=== PATIENT | female | born 1995 | race Caucasian/White ===

== ENCOUNTER 2020-02-13 14:39 | Emergency (ER) | payer MEDICARE, MEDICAID, SELFPAY ==
[2020-02-13 15:06] VITALS: BP 139/88; PULSE 73; RESP 16; TEMP 36.6; O2SAT 98; BMI 41.3
--- NOTE | 2020-02-13 15:25 | ED.WOUNDLAC ---
HPI - Wound/Laceration General Chief Complaint: Wound/Laceration <RASHIDA Ac - Last Filed: 02/13/20 16:14> Stated Complaint: WOUND CHECK <RASHIDA Ac - Last Filed: 02/13/20 16:14> Time Seen by Provider: 02/13/20 15:22 <RASHIDA Ac - Last Filed: 02/13/20 16:14> History of Present Illness HPI narrative: Patient complains of area of redness on her left stroud area of her lower leg for several days, she lives in a nursing home, she saw her primary physician who started doxycycline and took her 1st dose this morning and the nursing home wanted her to be recheck here in the ER, there is no acute change since her visit to the primary care physician yesterday No fever no chills no numbness no weakness no calf pain <RASHIDA Ac - Last Filed: 02/13/20 16:14> Related Data Home Medications: Previous Rx's Medication Instructions Recorded atenolol 25 mg tablet 25 mg PO DAILY 90 Days #90 tab 02/07/20 doxycycline hyclate 100 mg tablet 100 mg PO BID #14 tab 02/12/20 silver sulfadiazine 1 % topical 1 applic TOPICAL DAILY #50 g 02/12/20 cream cephalexin [Keflex] 500 mg PO QID 7 Days #28 cap 02/13/20 <RASHIDA Ac - Last Filed: 02/13/20 16:14> Allergies/Adverse Reactions: Allergies Allergy/AdvReac Type Severity Reaction Status Date / Time silver Allergy Unknown RASH Unverified 02/12/20 11:40 [From TEGADERM AG MESH] transparent dressing Allergy Unknown skin Verified 02/12/20 11:40 irritation sensitivity haloperidol [From HALDOL] AdvReac Intermediate UNKNOWN Unverified 02/12/20 11:40 Haldol Allergy Unknown paradoxical Uncoded 02/12/20 11:40 effect Tegaderm CHG dressing: Allergy Unknown skin Uncoded 02/12/20 11:40 irritation <RASHIDA Ac - Last Filed: 02/13/20 16:14> Review of Systems Review of Systems: Review of systems is positive for painful red area on left lower leg There is no fever no chills no weakness no confusion no shortness of breath no palpitations no chest pain no calf pain no other rash no numbness <RASHIDA Ac - Last Filed: 02/13/20 16:14> Yes all other systems are reviewed and are negative <RASHIDA Ac - Last Filed: 02/13/20 16:14> [facility] Past Medical History Attestation statement: The following information was validated with the patient. <RASHIDA Ac - Last Filed: 02/13/20 16:14> Source: nursing notes reviewed <RASHIDA Ac - Last Filed: 02/13/20 16:14> Medical History: Medical History (Updated 02/13/20 @ 15:33 by RASHIDA Ac) Acute constipation Anemia Anxiety Autistic disorder Chronic constipation Colitis Crohn's disease Developmental delay, mild Iron deficiency Mood disorder Pica in adults Prader-Willi syndrome PTSD (post-traumatic stress disorder) Vitamin D deficiency <RASHIDA Ac - Last Filed: 02/13/20 16:14> Surgical History: Surgical History History of abdominal surgery History of throat surgery <RASHIDA Ac - Last Filed: 02/13/20 16:14> Family History Family History: Family History Father No problems noted. Mother No problems noted. <RASHIDA Ac - Last Filed: 02/13/20 16:14> Social History Social History: Social History Alcohol intake: never Smoked in Last 30 Days: No Use of substances other than those prescribed or required for medical reasons: No Advance Directives: No Advance Directives Information Provided: No <RASHIDA Ac - Last Filed: 02/13/20 16:14> Physical Exam Vital Signs: Vital Signs: Last Vital Signs Temp 97.8 F 02/13/20 15:06 Pulse 73 02/13/20 15:06 Resp 16 02/13/20 15:06 BP 139/88 02/13/20 15:06 Pulse Ox 98 02/13/20 15:06 Body Mass Index 41.3 <RASHIDA Ac - Last Filed: 02/13/20 16:14> Vital Signs: Last Vital Signs Temp 97.8 F 02/13/20 15:06 Pulse 73 02/13/20 15:06 Resp 16 02/13/20 15:06 BP 139/88 02/13/20 15:06 Pulse Ox 98 02/13/20 15:06 Body Mass Index 41.3 <Dylan Saul MD - Last Filed: 02/19/20 07:33> Patient is A&O x3 no acute distress comfortable cooperative The neck is supple Respiratory no distress The extremities the left lower anterior lower leg has an excoriated area that is scabbed that is read it is about 3 cm x 3 cm, there is some mild swelling of the area as well as the dorsum of the foot, there is no calf tenderness or swelling, the ankle and the knee have full range of motion there is no joint swelling Skin there is no other rash Neuro there is no focal deficit, no motor or sensory deficit <RASHIDA Ac - Last Filed: 02/13/20 16:14> Course Course Course Narrative: Patient saw her doctor yesterday and there has been no change, the doctor started doxycycline, for broader coverage for strep I started Keflex and patient is ambulating easily and comfortable and is discharged for outpatient treatment <RASHIDA Ac - Last Filed: 02/13/20 16:14> I have reviewed the chart <Dylan Saul MD - Last Filed: 02/19/20 07:33> Discharge Plan Discharge Clinical Impression: Cellulitis Qualifiers: Site of cellulitis: extremity Site of cellulitis of extremity: lower extremity Laterality: left Qualified Code(s): L03.116 - Cellulitis of left lower limb <RASHIDA Ac - Last Filed: 02/13/20 16:14> Patient Disposition: Home, Self-Care <RASHIDA Ac - Last Filed: 02/13/20 16:14> Additional Instructions: We are treating for a skin infection of the left leg Your doctor started doxycycline and I added Keflex for broader coverage Follow with your doctor or return to the ER in 2-3 days for recheck Return to the ER any time for spreading redness, worse pain and swelling, fever, red stripe up the leg, any worse condition or any concerns <RASHIDA Ac Last Filed: 02/13/20 16:14> Prescriptions: New cephalexin [Keflex] 500 mg capsule 500 mg PO QID 7 Days Qty: 28 RF: 0 No Action atenolol 25 mg tablet 25 mg PO DAILY 90 Days Qty: 90 RF: 0 silver sulfadiazine [Silvadene] 1 % cream 1 applic topical DAILY Qty: 50 RF: 0 doxycycline hyclate 100 mg tablet 100 mg PO BID Qty: 14 RF: 0 <RASHIDA Ac - Last Filed: 02/13/20 16:14> Interventions: ED Discharge Assessment Last Done: 02/13/20 16:13 <RASHIDA Ac - Last Filed: 02/13/20 16:14> Discharge Date/Time: 02/13/20 16:21 <RASHIDA Ac - Last Filed: 02/13/20 16:14> Print Language: Hungarian <RASHIDA Ac - Last Filed: 02/13/20 16:14>
[2020-02-13] MEDS: cephALEXin 500 MG CAPSULE PO (15:47)
== END 2020-02-13 16:21 | disposition home or self-care (01) ==
PROVIDERS: Emergency Provider Emergency Medicine; PCP Internal Medicine
DX: L03.116 Cellulitis of left lower limb (principal); M79.605 Pain in left leg; Z79.899 Other long term (current) drug therapy
CPT/HCPCS: 99283; 99284

== ENCOUNTER 2020-02-19 16:38 | Inpatient (IN) | payer MEDICARE, MEDICAID, SELFPAY ==
--- NOTE | 2020-02-19 | XR_ITS ---
EXAMINATION: XR ABDOMEN KUB CLINICAL INDICATION: Rule out foreign body COMPARISON: 08/26/2019 TECHNIQUE: AP view of the abdomen. FINDINGS: Bowel gas pattern is nonobstructive. Projecting over the right lower quadrant the level of the superior right acetabulum there is a metallic density, question a screw. Correlate with physical exam. XR/XR abdomen 1V IMPRESSION: There is a screw/foreign body projecting over the right lower quadrant level of the right acetabulum. Correlate with physical exam and clinical history. Findings were discussed with Dr. Lehman at 6:15 PM on 02/19/2020
--- NOTE | 2020-02-19 | XR_ITS ---
EXAMINATION: XR CHEST CLINICAL INFORMATION: Rule out foreign body COMPARISON: Chest radiograph 08/26/2019 TECHNIQUE: Frontal view of the chest was obtained. FINDINGS: The cardiomediastinal silhouette is normal in appearance. There is adequate expansion of the lungs. No focal consolidation. No pleural effusion or pneumothorax. There is a sliver of air under the right hemidiaphragm, concerning for pneumoperitoneum. No acute osseous abnormality. XR/XR chest 1V IMPRESSION: Small sliver of air under the right hemidiaphragm, concerning for pneumoperitoneum. No acute disease within the chest. This critical result was discussed with RASHIDA Lucas at 6:12 PM on 02/19/2020 and it was ascertained that the content and urgency of the report was understood at the time of direct communication.
--- NOTE | 2020-02-19 | XR_ITS ---
EXAMINATION: XR SOFT TISSUE NECK CLINICAL INDICATION: Rule out foreign body COMPARISON: 10/24/2019 TECHNIQUE: 2 views of the soft tissue neck were obtained. FINDINGS: Soft tissue films of the neck demonstrate a normal larynx, pharynx and upper trachea. No soft tissue swelling or opaque foreign body is demonstrated. The large metallic foreign body seen previously is no longer present. XR/XR soft tissue neck IMPRESSION: No radiopaque foreign body is seen.
[2020-02-19 17:06] VITALS: BP 137/86; PULSE 64; RESP 18; TEMP 36.4; O2SAT 100; BMI 35.5
--- NOTE | 2020-02-19 18:15 | ED_ITS ---
HPI - General Adult General Chief complaint: General Medical Stated complaint: Medical Clearance Time Seen by Provider: 02/19/20 18:12 History of Present Illness HPI narrative: Patient who is a resident in a senior care with a history of swallowing foreign bodies complains of she swallowed a screw 3 days ago and since then has had a mild discomfort in her lower chest and upper abdomen, no nausea no vomiting no diarrhea no fever no chills no difficulty breathing or swallowing, no dizziness no weakness Related Data Home Medications Medication Instructions Recorded Confirmed Fish Oil 02/19/20 Flonase 02/19/20 Miralax 02/19/20 Vitamin D (with calcium) 02/19/20 atenolol 02/19/20 famotidine 02/19/20 folic acid 02/19/20 guanfacine 02/19/20 02/19/20 melatonin 02/19/20 multivitamin 02/19/20 Allergies Allergy/AdvReac Type Severity Reaction Status Date / Time silver Allergy Unknown RASH Verified 02/19/20 17:06 [From TEGADERM AG MESH] transparent dressing Allergy Unknown skin Verified 02/19/20 17:06 irritation sensitivity haloperidol [From HALDOL] AdvReac Intermediate UNKNOWN Verified 02/19/20 17:06 Haldol Allergy Unknown paradoxical Uncoded 02/12/20 11:40 effect Tegaderm CHG dressing: Allergy Unknown skin Uncoded 02/12/20 11:40 irritation Review of Systems Review of Systems: There is no fever no chills no dizziness no weakness no headache no shortness of breath no difficulty breathing or swallowing, no nausea no vomiting, no rash Yes all other systems are reviewed and are negative PMFSH Past Medical History Source: nursing notes reviewed Medical History (Updated 02/19/20 @ 21:57 by RASHIDA Ac) Acute constipation Anemia Anxiety Autistic disorder Chronic constipation Colitis Crohn's disease Developmental delay, mild Iron deficiency Mood disorder Pica in adults Prader-Willi syndrome PTSD (post-traumatic stress disorder) Vitamin D deficiency Surgical History History of abdominal surgery History of throat surgery Family History Family History Father No problems noted. Mother No problems noted. Social History Social History Alcohol intake: never Smoking Status: Unknown if ever smoked Use of substances other than those prescribed or required for medical reasons: No Advance Directives: No Advance Directives Information Provided: No Physical Exam Vital Signs: Vital Signs: Last Vital Signs Temp 98.3 F 02/19/20 19:25 Pulse 74 02/19/20 19:25 Resp 16 02/19/20 19:25 BP 137/86 02/19/20 17:06 Pulse Ox 98 02/19/20 19:25 Body Mass Index 35.5 General appearance no acute distress, speaking full sentences, breathing comfortably, a and O x3 The head is normocephalic atraumatic The pharynx is clear, mucous membranes moist The neck is supple without stridor The chest is clear to auscultation bilaterally with symmetrical equal breath sounds, no respiratory distress The heart no obvious murmur The abdomen with mild upper abdominal tenderness no rebound no guarding Extremities full range of motion x4 Skin no rash Neuro no focal deficit Course Course Course Narrative: X-rays were done and chest x-ray revealed a sliver of air under the right hemidiaphragm which we were notified about by the radiologist who is concerned for pneumoperitoneum and advised CT scanning for further more complete evaluation The patient remains comfortable throughout the ER visit, speaking and breathing normally with no significant discomfort IV insertion was difficult and done with ultrasound by nursing, the IV contrast infiltrated into the patient's forearm and plan is await results of the CT scan which was basically without contrast and discussed with radiologist if images are sufficient when they are back Radiologist called confirming free air under diaphragm and location of screw in cecum but no other findings on CT Repeat evaluation of the patient shows her comfortable hungry but advised not to eat with no tenderness in abdomen and lungs clear and speaking full sentences Call from radiology confirmed that there was free air under the diaphragm as well as a screw in the cecum Case was discussed by text with surgeon Dr. Chang who admitted the patient for observation and possible surgical treatment Medical Decision Making Lab Data Lab results reviewed: Yes I reviewed the patient's lab results. Result diagrams: 02/19/20 19:14 02/19/20 19:14 Labs: Lab Results 02/19/20 02/19/20 02/19/20 Range/Units 19:14 19:14 19:14 WBC 9.4 (4.8-10.8) X10*3/uL RBC 4.34 (4.20-5.50) X10*6/uL Hgb 12.0 (12.0-16.0) g/dl Hct 37.9 (37-47) % MCV 87.3 (80-98) fL MCH 27.6 (27.0-33.0) pg MCHC 31.7 (31.0-35.0) g/dl RDW 14.4 (11.0-16.0) % Plt Count 212 (160-400) X10*3/uL MPV 10.3 (9.4-12.3) fL Immature Gran % (Auto) 0.4 (0.0-0.4) % Neut % (Auto) 72.0 (45-73) % Lymph % (Auto) 18.5 L (20-40) % [place] % (Auto) 6.2 (2-11) % Eos % (Auto) 2.6 (0-4) % Baso % (Auto) 0.3 (0-2) % Lymph # (Auto) 1.7 (1.2-4.9) X10*3/uL [place] # (Auto) 0.6 (0.1-1.2) X10*3/uL Eos # (Auto) 0.2 (0.0-0.4) X10*3/uL Baso # (Auto) 0.0 (0.0-0.2) X10*3/uL Abs Immat Gran (auto) 0.04 H (0.00-0.03) X10*3/uL Absolute Neuts (auto) 6.7 (2.0-8.3) X10*3/uL Absolute Nucleated RBC 0.000 (0.0-0.012) X10*3/uL Nucleated RBC % (auto) 0.0 (0.0-0.2) /100WBC Hold Blue Top SEE NOTE Sodium 138 (135-145) mmol/L Potassium 3.8 (3.3-5.1) mmol/l Chloride 101 (96-108) mmol/L Carbon Dioxide 28 (22-29) mmol/L Anion Gap 13 (12-20) BUN 23 H (9-16) mg/dL Creatinine 0.92 (0.5-1.4) mg/dL Estim Creat Clear Calc 89.8 Estimated GFR > 60 Random Glucose 91 (60-115) mg/dL Calcium 9.0 (8.4-10.2) mg/dL Imaging Data CT scan - abdomen: Attestation: I personally reviewed and interpreted this imaging study as follows: Radiologist's impression: Mediastinum: The mediastinum is normal. The central vascular structures are unremarkable. No hilar or mediastinal lymphadenopathy. Pericardium/Pleura: No significant effusion. No pleural mass or thickening. Chest Wall/Axilla: Unremarkable. ABDOMEN/PELVIS: Peritoneal Space: There is a small amount of free air present in the peritoneal cavity with air present just beneath the right hemidiaphragm and a tiny bit of air seen in Morison's pouch as well as around the caudate lobe of the liver. Liver, Gallbladder, Biliary Tree: The liver is normal in size, shape, and attenuation. No focal hepatic lesion or biliary ductal dilatation is present. The gallbladder is unremarkable with no evidence of radiopaque gallstones, gallbladder wall thickening, or obvious pericholecystic inflammatory changes. Pancreas: Unremarkable. Spleen: Unremarkable. Adrenal Glands: Unremarkable. Kidneys and Ureters: The kidneys are normal in size, shape, and attenuation. No hydronephrosis, hydroureter, or calculi seen. No perinephric stranding. Bladder: Unremarkable. Gastrointestinal Tract: There is a 2.7 cm long metallic screw present in the cecum. The small and large bowel are otherwise unremarkable. The stomach appears unremarkable. There is no convincing evidence of a perforated viscus. No inflammatory changes are present around the bowel. The appendix is unremarkable. Abdominal Wall: There is a left supraumbilical hernia seen containing only fat. Lymph Nodes: No lymphadenopathy. Vascular: The aorta appears normal. The IVC appears unremarkable. PELVIC VISCERA: Unremarkable. OSSEUS STRUCTURES: Unremarkable. CT/CT chest w con IMPRESSION: 1. There is a small amount of free intraperitoneal air present. 2. The patient has ingested a 2.7 cm metallic screw which is in the cecum. 3. No obvious evidence of bowel perforation or perienteric inflammatory changes. 4. Incidentally noted left-sided spigelian anterior abdominal wall hernia. This critical result was discussed with Dr. Cortes at 9:15 PM on the evening of the exam and it was ascertained that the content and urgency of the report was understood at the time of direct communication. Discharge Plan Discharge Clinical Impression: Intra-abdominal free air of unknown etiology, Foreign body, swallowed Patient Disposition: Admitted As Inpatient Prescriptions: No Action Fish Oil RF: 0 Flonase RF: 0 Miralax RF: 0 Vitamin D (with calcium) RF: 0 atenolol RF: 0 famotidine RF: 0 folic acid RF: 0 guanfacine RF: 0 melatonin RF: 0 multivitamin RF: 0
--- NOTE | 2020-02-19 18:17 | CT_ITS ---
EXAMINATION: CT CHEST, ABDOMEN AND PELVIS WITHOUT CONTRAST CLINICAL INFORMATION: Question free air under right hemidiaphragm, assess for pneumoperitoneum. COMPARISON: No pertinent prior studies are available for comparison. TECHNIQUE: Multidetector volumetric imaging was performed from the thoracic inlet through the pubic symphysis following administration of 85 mL of Omnipaque 350. It should be noted that no contrast is seen on the images and that there was an extravasation injury with extravasation of nearly the whole volume in the left antecubital fossa. Sagittal and coronal reformatted images were obtained on the technologist's workstation. This CT examination was performed using dose optimization techniques as appropriate, variously including the following: *Automated exposure control. *Adjustment of mA and/or kV according to patient size (this includes techniques or standardized protocols for targeted exams where dose is matched to indication/reason for exam; i.e. extremities or head). *Use of iterative reconstruction technique. DLP: 667 mGy-cm FINDINGS: CHEST: Lung: The lungs are clear without focal opacity or nodule. Mediastinum: The mediastinum is normal. The central vascular structures are unremarkable. No hilar or mediastinal lymphadenopathy. Pericardium/Pleura: No significant effusion. No pleural mass or thickening. Chest Wall/Axilla: Unremarkable. ABDOMEN/PELVIS: Peritoneal Space: There is a small amount of free air present in the peritoneal cavity with air present just beneath the right hemidiaphragm and a tiny bit of air seen in Morison's pouch as well as around the caudate lobe of the liver. Liver, Gallbladder, Biliary Tree: The liver is normal in size, shape, and attenuation. No focal hepatic lesion or biliary ductal dilatation is present. The gallbladder is unremarkable with no evidence of radiopaque gallstones, gallbladder wall thickening, or obvious pericholecystic inflammatory changes. Pancreas: Unremarkable. Spleen: Unremarkable. Adrenal Glands: Unremarkable. Kidneys and Ureters: The kidneys are normal in size, shape, and attenuation. No hydronephrosis, hydroureter, or calculi seen. No perinephric stranding. Bladder: Unremarkable. Gastrointestinal Tract: There is a 2.7 cm long metallic screw present in the cecum. The small and large bowel are otherwise unremarkable. The stomach appears unremarkable. There is no convincing evidence of a perforated viscus. No inflammatory changes are present around the bowel. The appendix is unremarkable. Abdominal Wall: There is a left supraumbilical hernia seen containing only fat. Lymph Nodes: No lymphadenopathy. Vascular: The aorta appears normal. The IVC appears unremarkable. PELVIC VISCERA: Unremarkable. OSSEUS STRUCTURES: Unremarkable. CT/CT abdomen pelvis w con IMPRESSION: 1. There is a small amount of free intraperitoneal air present. 2. The patient has ingested a 2.7 cm metallic screw which is in the cecum. 3. No obvious evidence of bowel perforation or perienteric inflammatory changes. 4. Incidentally noted left-sided spigelian anterior abdominal wall hernia. This critical result was discussed with Dr. Cortes at 9:15 PM on the evening of the exam and it was ascertained that the content and urgency of the report was understood at the time of direct communication.
[2020-02-19 19:24] LABS: Basophils Percent Auto 0.3 % (0-2); Eosinophils Absolute Auto 0.2 X10*3/uL (0.0-0.4); Eosinophils Percent Auto 2.6 % (0-4); Hematocrit 37.9 % (37-47); Imm Gran Abs Auto 0.04 X10*3/uL (0.00-0.03); Imm Gran Pct Auto 0.4 % (0.0-0.4); Lymphocytes Absolute Auto 1.7 X10*3/uL (1.2-4.9); Lymphocytes Percent Auto 18.5 % (20-40); MANUAL DIFF FLAG NO; Mean Corpuscular HGB Conc 31.7 g/dl (31.0-35.0); Mean Corpuscular Hemoglobin 27.6 pg (27.0-33.0); Mean Corpuscular Volume 87.3 fL (80-98); Mean Platelet Volume 10.3 fL (9.4-12.3); Monocytes Absolute Auto 0.6 X10*3/uL (0.1-1.2); Monocytes Percent Auto 6.2 % (2-11); Neutrophils Absolute Auto 6.7 X10*3/uL (2.0-8.3); Platelet Count 212 X10*3/uL (160-400); Red Blood Count 4.34 X10*6/uL (4.20-5.50); Red Cell Distribution Width 14.4 % (11.0-16.0); White Blood Count 9.4 X10*3/uL (4.8-10.8)
[2020-02-19 19:25] VITALS: PULSE 74; RESP 16; TEMP 36.8; O2SAT 98
[2020-02-19 19:45] LABS: Anion Gap 13 (12-20); Blood Urea Nitrogen 23 mg/dL (9-16); Carbon Dioxide 28 mmol/L (22-29); Chloride 101 mmol/L (96-108); Creatinine Clr Calc Pharmacy 89.8; Estimated Glomerular Filt Rate > 60; Glucose Random 91 mg/dL (60-115); Potassium 3.8 mmol/l (3.3-5.1); Sodium 138 mmol/L (135-145)
[2020-02-19] MEDS: iohexoL 350 MG/ML 100 ML INFUS..BTL IV (20:43)
[2020-02-19 22:25] VITALS: BP 92/63; PULSE 74; RESP 18; TEMP 36.7; O2SAT 98
[2020-02-19 23:24] LABS: COVID-19 Test Negative (Negative)
--- NOTE | 2020-02-20 | XR_ITS ---
EXAMINATION: XR ABDOMEN KUB CLINICAL INDICATION: Follow-up foreign body COMPARISON: Previous CT from yesterday TECHNIQUE: AP view of the abdomen. FINDINGS: The screw is seen in the right lower pelvis just medial to the acetabulum. This is inferior to its position on yesterday's CT scan, however it is possible this is due difference in patient positioning i.e. upright on today's exam and supine on CT. There are no dilated loops of bowel. Free air appreciated by CT is not appreciated by x-ray. There is excreted IV contrast in the bladder. There is curvature of the lumbar spine to the left. XR/XR abdomen 1V IMPRESSION: Screw in the right pelvis.
[2020-02-20] MEDS: 0.9 % Sodium Chloride Flush 3 ML SYRINGE IVFLUSH ×3 (01:16→23:36)
[2020-02-20] MEDS: Dextrose 5 % and Lactated Ring 1,000 ML 125 ML IVCONT (01:16)
[2020-02-20 01:33] VITALS: BP 101/77; PULSE 68; RESP 20; TEMP 36.6; O2SAT 99
[2020-02-20 03:02] VITALS: BP 129/70; PULSE 63; RESP 16; TEMP 36.2; O2SAT 97
[2020-02-20 07:08] LABS: Hematocrit 37.2 % (37-47); Hemoglobin 11.8 g/dl (12.0-16.0); Mean Corpuscular HGB Conc 31.7 g/dl (31.0-35.0); Mean Corpuscular Hemoglobin 27.3 pg (27.0-33.0); Mean Corpuscular Volume 86.1 fL (80-98); Mean Platelet Volume 10.3 fL (9.4-12.3); Platelet Count 175 X10*3/uL (160-400); Red Blood Count 4.32 X10*6/uL (4.20-5.50); Red Cell Distribution Width 14.6 % (11.0-16.0); White Blood Count 5.9 X10*3/uL (4.8-10.8)
[2020-02-20 07:55] VITALS: BP 138/81; PULSE 84; RESP 19; TEMP 36.5; O2SAT 100
--- NOTE | 2020-02-20 08:26 | P.HPGS_ITS ---
History of Present Illness History of Present Illness Chief complaint: Pneumoperitoneum, swallowed foreign body <RICARDO Elliott Last Filed: 02/20/20 08:57> Narrative: Tiki Sharp is a 24 year old female with PMH including autism, Crohn's disease, anemia and pica, with a history of swallowing foreign objects, who now presents 3 days following swallowing a screw. She reports she did have some abdominal pain immediately after swallowing the screw which was not severe but that resolved that day. Her PCP was contacted at that time who instructed the [facility] to wait 2 days to see if the screw passes. She was brought to the ED to assess if the screw had passed. Chest, abdominal and neck xrays were initially performed which showed the screw in the bowel and a small sliver of free intraperitoneal air. A CT scan abd/pelvis was therefore obtained which redemonstrated the small amount of free intraperitoneal air, the 2.7 cm metallic screw in the cecum but without obvious evidence of bowel perforation or per ienteric inflammatory changes. Her WBC was normal and vitals were stable, afebrile. She has required laparotomy and removal of a foreign body from her stomach. This morning, she feels hungry. The patient currently denies any abdominal pain, nausea, vomiting, change in bowel habits or blood in her stool. She is passing flatus. She wants to go back the [facility]. <RICARDO Elliott Last Filed: 02/20/20 08:57> Review of Systems Constitutional: Constitutional: Denies chills, Denies fever(s) and Denies weakness <RICARDO Elliott Last Filed: 02/20/20 08:57> Eyes: Eyes: Denies blurry vision <RICARDO Elliott Last Filed: 02/20/20 08:57> ENT: Denies dizziness <RICARDO Elliott Filed: 02/20/20 08:57> Cardiovascular: Cardiovascular: Denies chest pain, Denies palpitations and Denies dyspnea <RICARDO Elliott Last Filed: 02/20/20 08:57> Respiratory: Respiratory: Denies cough and Denies dyspnea <RICARDO Elliott Last Filed: 02/20/20 08:57> Gastrointestinal: Gastrointestinal: Reports abdominal pain, Denies melena, Denies hematochezia, Denies change in bowel habits, Denies nausea and Denies vomiting <Bianca Olivo PA-C Last Filed: 02/20/20 08:57> Genitourinary: Genitourinary: Denies hematuria and Denies dysuria <Bianca Olivo PA-C Filed: 02/20/20 08:57> Integumentary/Breasts: Skin/Breast: Reports skin ulcer (LLE cellulitis) <Bianca Olivo PA-C Last Filed: 02/20/20 08:57> Neurologic: Denies dizziness and Denies weakness <Bianca Olivo PA-C Filed: 02/20/20 08:57> Endocrine: Endocrine: Denies palpitations <Bianca Olivo PA-C Filed: 02/20/20 08:57> PMF Past Medical History Medical History: Medical History Acute constipation Anemia Anxiety Autistic disorder Chronic constipation Colitis Crohn's disease Developmental delay, mild Iron deficiency Mood disorder Pica in adults Prader-Willi syndrome PTSD (post-traumatic stress disorder) Vitamin D deficiency <Bianca Olivo PA-C Last Filed: 02/20/20 08:57> Family History Family History: Family History Father No problems noted. Mother No problems noted. <Bianca Olivo PA-C Last Filed: 02/20/20 08:57> Surgical History Surgical History: Surgical History History of abdominal surgery History of throat surgery <Bianca Olivo PA-C Last Filed: 02/20/20 08:57> Social History Social History: Social History Household Members: Other Housing: Other Do you presently have visiting nurse or other home services: Yes Alcohol intake: never Smoking Status: Never smoker Use of substances other than those prescribed or required for medical reasons: No Currently Displaying Signs/Symptoms of Drug Intoxication Withdrawal: No Have you been hit, kicked, punched, or otherwise hurt by someone within the past year? If so, by whom?: No Do you feel safe in your current relationship?: No Current Relationship Is there a partner from a previous relationship who is making you feel unsafe now?: No Are you made to feel afraid or neglected: No Advance Directives: No Advance Directives Information Provided: No Do you have thoughts of harming others: None Do you have a plan to hurt others: No Plan Recently lost weight without trying: No <Bianca Olivo PA-C - Last Filed: 02/20/20 08:57> Meds Allergies/Adverse reactions: Allergies Allergy/AdvReac Type Severity Reaction Status Date / Time silver Allergy Unknown RASH Verified 02/19/20 17:06 [From TEGADERM AG MESH] transparent dressing Allergy Unknown skin Verified 02/19/20 17:06 irritation sensitivity haloperidol [From HALDOL] AdvReac Intermediate UNKNOWN Verified 02/19/20 17:06 Haldol Allergy Unknown paradoxical Uncoded 02/12/20 11:40 effect Tegaderm CHG dressing: Allergy Unknown skin Uncoded 02/12/20 11:40 irritation <Bianca Olivo PA-C - Last Filed: 02/20/20 08:57> Home medications: Home Medications Medication Instructions Recorded Confirmed Type acetaminophen 325 mg PO BID PRN 02/20/20 02/20/20 History atenolol 25 mg PO DAILY 02/20/20 02/20/20 History calcium citrate-vitamin D3 1 tab PO DAILY 02/20/20 02/20/20 History [Calcium Citrate + D] cephalexin [Keflex] 500 mg PO QID 02/20/20 02/20/20 History cholecalciferol (vitamin D3) 50 mcg PO DAILY 02/20/20 02/20/20 History [Vitamin D3] diphenhydramine HCl [Benadryl] 50 mg PO Q6H PRN 02/20/20 02/20/20 History famotidine 40 mg PO DAILY 02/20/20 02/20/20 History ferrous sulfate 325 mg PO BID 02/20/20 02/20/20 History fluticasone propionate [Flonase] 1 spray INTRANASAL BEDTIME 02/20/20 02/20/20 History folic acid 1 mg PO DAILY 02/20/20 02/20/20 History guaifenesin [Robitussin] 200 mg PO Q4H PRN 02/20/20 02/20/20 History guanfacine 1 mg PO DAILY 02/20/20 02/20/20 History ibuprofen 600 mg PO Q8H PRN 02/20/20 02/20/20 History melatonin 3 mg PO BEDTIME 02/20/20 02/20/20 History menthol-zinc oxide [Calmoseptine] 1 applic TOPICAL TID PRN 02/20/20 02/20/20 History mercaptopurine 50 mg PO DAILY 02/20/20 02/20/20 History multivitamin 1 tab PO DAILY 02/20/20 02/20/20 History omega 9-[id number]-fish oil [Fish Oil] 1 cap PO TID 02/20/20 02/20/20 History polyethylene glycol 3350 17 g PO Q2D 02/20/20 02/20/20 History silver sulfadiazine [Silvadene] 1 applic TOPICAL BID 02/20/20 02/20/20 History sodium chloride [Saline Nasal Mist] 2 spray INTRANASAL BID PRN 02/20/20 02/20/20 History ustekinumab [Stelara] 90 mg SUBCUT Q4W 02/20/20 02/20/20 History <Bianca Olivo PA-C - Last Filed: 02/20/20 08:57> Physical Exam Vital Signs: Vital Signs: Last Vital Signs Temp 97.7 F 02/20/20 07:55 Pulse 84 02/20/20 07:55 Resp 19 02/20/20 07:55 BP 138/81 02/20/20 07:55 Pulse Ox 100 02/20/20 07:55 Body Mass Index 35.5 <Bianca Olivo PA-C - Last Filed: 02/20/20 08:57> Const: General: cooperative, comfortable, no acute distress and alert <RICARDO Elliott Last Filed: 02/20/20 08:57> Orientation/consciousness: patient oriented x3 <RICARDO Elliott Last Filed: 02/20/20 08:57> Eyes: Sclerae: sclerae normal <[facility] Last Filed: 02/20/20 08:57> Resp: Effort & Inspection: normal respiratory effort <Bianca Thurstondeau [facility] Last Filed: 02/20/20 08:57> GI: Inspection: No distended and Yes scar (left upper abdomen) <Bianca Thurstondeau [facility] Last Filed: 02/20/20 08:57> Palpation (GI): Soft to palpation, nontender, no guarding, not rigid and No Rebound tenderness present <Bianca Thurstondeau [facility] Last Filed: 02/20/20 08:57> Percussion: Yes normal to percussion <Bianca Thurstondeau [facility] Filed: 02/20/20 08:57> Auscultation: normal bowel sounds <Biancagarret Thurstondeau [facility] Filed: 02/20/20 08:57> Rectal Exam - Female: deferred <[facility]ianca Olivo [facility] Last Filed: 02/20/20 08:57> Skin: Other: LLE with erythema and scabbed ulcer with surrounding excoriations of anterior stroud <Bianca Thurstondeau [facility] Last Filed: 02/20/20 08:57> Neuro: General: patient oriented x3 <Bianca Thurstondeau [facility] Last Filed: 02/20/20 08:57> Extrem: General: Yes normal exam except as noted (in skin exam) and Yes no clubbing, cyanosis or edema <Bianca Rodriguezbodeau [facility] Last Filed: 02/20/20 08:57> Results Results Labs: Short CBC 02/19/20 02/20/20 Range/Units 19:14 06:41 WBC 9.4 5.9 (4.8-10.8) X10*3/uL Hgb 12.0 11.8 L (12.0-16.0) g/dl Hct 37.9 37.2 (37-47) % Plt Count 212 175 (160-400) X10*3/uL BMP 02/19/20 19:14 Sodium 138 Potassium 3.8 Chloride 101 Carbon Dioxide 28 BUN 23 H Creatinine 0.92 Calcium 9.0 <Bianca Olivo PA-C - Last Filed: 02/20/20 08:57> Assessment and Plan (1) Cellulitis: Qualifiers: Laterality: left Site of cellulitis: extremity Site of cellulitis of extremity: lower extremity Qualified Code(s): L03.116 - Cellulitis of left lower limb <RICARDO Elliott Last Filed: 02/20/20 08:57> Status: Acute <Bianca Olivo PA-C - Last Filed: 02/20/20 08:57> Treated with keflex, doxycycline x 1 week. <Bianca Olivo PA-C - Last Filed: 02/20/20 08:57> (2) Intra-abdominal free air of unknown etiology: Status: Acute <RICARDO Elliott Last Filed: 02/20/20 08:57> (3) Foreign body, swallowed: Qualifiers: Encounter type: initial encounter Qualified Code(s): T18.9XXA - Foreign body of alimentary tract, part unspecified, initial encounter <Bianca Olivo PA-C - Last Filed: 02/20/20 08:57> Status: Acute <RICARDO Elliott Last Filed: 02/20/20 08:57> 24 year old female with a history of autism, pica who swallowed a screw on Wednesday. CT scan in the ED showed a small amount of free intraperitoneal air but no evidence of bowel perforation or perienteric inflammatory changes. She is asymptomatic, her vitals are stable and she is nontoxic appearing with a very benign abdominal exam without any peritoneal signs. Unclear source of pneumoperitoneum but she is stable and the FB is already in the colon. Will repeat AXR this morning and advance to a solid diet. If tolerating diet and the FB has advanced without further worsening of the free intraperitoneal air, likely will be stable for discharge. Case discussed with Dr. Jorge Chang. <RICARDO Elliott Last Filed: 02/20/20 08:57> As noted above patient is a 24-year-old female with a history of PICA presenting to the emergency department after swallowing a screw. Patient did develop some upper abdominal pain and subsequently presented to the emergency department. She admitted eating the screw probably 3 days prior to onset of symptoms. Workup in the emergency department did reveal a screw in the cecum and a small collection of air under the diaphragm suggestive of a pneumoperitoneum. Examination however was completely benign with no evidence of rebound tenderness. Agree with the above assessment and plan. She was admitted to the surgical service for possible surgery should the symptoms worsen. This morning however patient is completely benign with no complaints of abdominal pain. Examination reveals no tenderness or peritoneal signs. She will be started on a diet and repeat abdominal x-ray ordered. If she tolerates the diet without any increase in abdominal pain she may be discharged to home. <Jorge Chang MD - Last Filed: 02/20/20 11:28> Procedures Abscess I/D Date of Service: 02/20/20 <Bianca Olivo PA-C - Last Filed: 02/20/20 08:57>
[2020-02-20 11:26] VITALS: BP 126/77; PULSE 78; RESP 19; TEMP 36.2; O2SAT 96
[2020-02-20 14:48] VITALS: BMI 35.5
[2020-02-20 15:15] VITALS: BP 124/70; PULSE 82; RESP 18; TEMP 36.4; O2SAT 98
[2020-02-20 23:44] VITALS: BP 132/88; PULSE 83; RESP 16; TEMP 36.3; O2SAT 98
--- NOTE | 2020-02-21 | XR_ITS ---
EXAMINATION: XR ABDOMEN KUB CLINICAL INDICATION: Follow-up foreign body COMPARISON: Previous KUB from yesterday and CT of the abdomen and pelvis from the day before yesterday TECHNIQUE: AP view of the abdomen. FINDINGS: There is a screw seen in the right lower quadrant. This is similar in position to CT scan. There are no dilated loops of bowel. Free air appreciated by CT scan is not appreciated by x-ray. Bony structures are unremarkable. XR/XR KUB IMPRESSION: Screw in the right lower quadrant similar to CT scan 02/19/2020.
[2020-02-21 04:00] VITALS: BP 127/86; PULSE 78; RESP 18; TEMP 36.3; O2SAT 97
--- NOTE | 2020-02-21 06:32 | PC.NURSE ---
note sent this am to surgical PA a later date, awaiting return answeron the recommendation of Harry David to help clarify if hold Queue orders for this patient represents pre-op status for today or on hold for a later date, awaiting return answer
--- NOTE | 2020-02-21 06:43 | PC.NURSE ---
called surgery department at 0640 and no paperwork, add on, or information to indicate surgery today per staff. npo status since approx., 0015 in case and pt and detentionin home sales representative informed
--- NOTE | 2020-02-21 06:47 | PC.NURSE ---
message back for PA, thinks due to procedure it may be a mistake, but to keep NPO in case, message received [phone], and day rn updated
--- NOTE | 2020-02-21 07:07 | PC.NURSE ---
note from 11-7 shift, small bm times one in bathroom, no silver screw noted in stool at this time, alos foam dsg applied to abrasion on outer left lower leg as patient picking at it, with pinpoint bleeding. cleansed and covered.
--- NOTE | 2020-02-21 07:59 | PM.PNGS ---
Subjective Subjective Date of Service: 02/21/20 <Bianca Olivo PA-C - Last Filed: 02/21/20 08:05> 02/21/20 <Jorge Chang MD - Last Filed: 02/21/20 08:14> Interval history: Feels well this morning. Tolerating solid diet without any abdominal pain. Had multiple BMs however screw was not seen. Wants to go home. <Bianca Olivo PA-C - Last Filed: 02/21/20 08:05> Physical Exam Vital Signs: Vital Signs: Last Vital Signs Temp 97.3 F 02/21/20 04:00 Pulse 78 02/21/20 04:00 Resp 18 02/21/20 04:00 BP 127/86 02/21/20 04:00 Pulse Ox 97 02/21/20 04:00 Body Mass Index 35.5 <Bianca Olivo PA-C - Last Filed: 02/21/20 08:05> Const: General: comfortable, no acute distress and alert <Bianca Olivo PA-C - Last Filed: 02/21/20 08:05> Orientation/consciousness: patient oriented x3 <Bianca Olivo PA-C Last Filed: 02/21/20 08:05> Eyes: Sclerae: sclerae normal <Bianca Olivo PA-C Last Filed: 02/21/20 08:05> Resp: Effort & Inspection: normal respiratory effort <Bianca Olivo PA-C - Last Filed: 02/21/20 08:05> GI: Inspection: No distended <Bianca Olivo PA-C Last Filed: 02/21/20 08:05> Palpation (GI): Soft to palpation, Tenderness to palpation present (GI) (mild upper abdominal tenderness to deep palpation), no guarding, not rigid and No Rebound tenderness present <RICARDO Elliott Last Filed: 02/21/20 08:05> Skin: Other: normal color, warm and dry <Bianca Olivo PA-C Last Filed: 02/21/20 08:05> Neuro: General: patient oriented x3 <Bianca Olivo PA-C - Last Filed: 02/21/20 08:05> Progress Note: A&P Assessment and plan (1) Foreign body, swallowed: Status: Acute <RICARDO Elliott Last Filed: 02/21/20 08:05> Assessment and Plan: Tolerating solid diet without any symptoms and with good GI function. VSS. Abd exam very benign without peritoneal signs. Will repeat AXR today- if ok, stable for d/c today. Can f/u with PCP upon discharge and surgery as needed. <RICARDO Elliott Last Filed: 02/21/20 08:05> (2) Intra-abdominal free air of unknown etiology: Status: Acute <RICARDO Elliott Last Filed: 02/21/20 08:05> Fall Risk Details Current Medications: Current Medications Generic Name Dose Route Start Last Admin Trade Name Freq PRN Reason Stop Dose Admin Acetaminophen 650 mg 02/20/20 00:29 Acetaminophen 325 Mg Tablet PO Q6H PRN Pain, Mild (Pain Scale 1-3) Morphine Sulfate 4 mg 02/20/20 00:29 Morphine Sulfate 4 Mg/Ml Cartridge IVPUSH Q4H PRN Pain, Severe (Pain Scale 7-10) Ondansetron HCl 4 mg 02/20/20 00:29 Ondansetron Hcl 4 Mg/2 Ml Vial IVPUSH Q8H PRN Nausea and Vomiting Pharmacy Consult 1 each 02/20/20 00:29 Consult Rx Perform Med Rec MISCELLANE ONCE PRN Consult order Sodium Chloride 3 ml 02/20/20 00:29 02/20/20 23:36 0.9 % Sodium Chloride Flush 3 Ml Syringe IVFLUSH 3 ml QSHIFT ELISE Administration <RICARDO Elliott Last Filed: 02/21/20 08:05> Time Spent With Patient Time: Total time spent is greater than 50% in coordination of care (as documented) at patient's floor/unit and/or counseling patient: <RICARDO Elliott Last Filed: 02/21/20 08:05> Time with patient: 15 - 24 minutes <RICARDO Elliott Last Filed: 02/21/20 08:05>
[2020-02-21 08:00] VITALS: BP 142/95; PULSE 96; RESP 18; TEMP 36.3; O2SAT 98
--- NOTE | 2020-02-21 08:01 | PM.PNGS ---
Subjective Subjective Date of Service: 02/21/20 Interval history: The patient denies abdominal pain reports tolerating regular diet without nausea or vomiting. She reports a large bowel movement but no Foreign body was noted. Physical Exam Vital Signs: Vital Signs: Last Vital Signs Temp 97.3 F 02/21/20 04:00 Pulse 78 02/21/20 04:00 Resp 18 02/21/20 04:00 BP 127/86 02/21/20 04:00 Pulse Ox 97 02/21/20 04:00 Body Mass Index 35.5 Const: Other: week, alert, in no acute distress, moving comfortably in bed without apparent abdominal discomfort Resp: Other: breathing comfortably on room air, no shortness of breath no cough GI: Other: soft, tenderness in the right upper quadrant and left upper quadrant without rebound or guarding. No tenderness in the lower abdomen Skin: Other: warm and dry, no rash Extrem: Other: no peripheral edema Progress Note: A&P Assessment and plan (1) Foreign body, swallowed: Status: Acute Assessment and Plan: patient reports feeling much improved with no abdominal pain. There is some slight tenderness to palpation but no peritoneal signs. Will repeat an abdominal x-ray this morning and if no increase in the free air will discharged to home. Fall Risk Details Current Medications: Current Medications Generic Name Dose Route Start Last Admin Trade Name Freq PRN Reason Stop Dose Admin Acetaminophen 650 mg 02/20/20 00:29 Acetaminophen 325 Mg Tablet PO Q6H PRN Pain, Mild (Pain Scale 1-3) Morphine Sulfate 4 mg 02/20/20 00:29 Morphine Sulfate 4 Mg/Ml Cartridge IVPUSH Q4H PRN Pain, Severe (Pain Scale 7-10) Ondansetron HCl 4 mg 02/20/20 00:29 Ondansetron Hcl 4 Mg/2 Ml Vial IVPUSH Q8H PRN Nausea and Vomiting Pharmacy Consult 1 each 02/20/20 00:29 Consult Rx Perform Med Rec MISCELLANE ONCE PRN Consult order Sodium Chloride 3 ml 02/20/20 00:29 02/20/20 23:36 0.9 % Sodium Chloride Flush 3 Ml Syringe IVFLUSH 3 ml QSHIFT ELISE Administration Time Spent With Patient Time: Total time spent is greater than 50% in coordination of care (as documented) at patient's floor/unit and/or counseling patient: Time with patient: 25 - 35 minutes
--- NOTE | 2020-02-21 09:35 | MHC.CM.PN ---
PATIENT IS FROM THE [facility]. NO DME OR VNA SERVICES, BUT DOES HAVE MEDICATION CERTIFIED STAFF. GUARDIAN IS AUNDaniel BETTS OF [address] [place] [address] IN [place] AND A COPY HAS BEEN REQUESTED PATIENT IS HOPING TO RETURN HOME WITH NO SERVICES. STAFF WILL TRANSPORT. IMM 02/20 IN CHART
--- NOTE | 2020-02-21 09:54 | PM.DS ---
DS: Providers Provider Date of admission: 02/19/20 21:38 Primary care physician: Galen Xie MD Consults: 02/20/20 00:29 Consult for Sitter Routine Reason for consultation: Pica history DS: Diagnosis Discharge Diagnosis (1) Foreign body, swallowed: Status: Acute DS: Medications Discharge Medications Home Medications: Home Medications Medication Instructions Recorded Confirmed Calmoseptine 1 applic TOPICAL TID PRN 02/20/20 02/20/20 Stelara 90 mg SUBCUT Q4W 02/20/20 02/20/20 acetaminophen 325 mg PO BID PRN 02/20/20 02/20/20 atenolol 25 mg PO DAILY 02/20/20 02/20/20 calcium citrate-vitamin D3 1 tab PO DAILY 02/20/20 02/20/20 [Calcium Citrate + D] cephalexin [Keflex] 500 mg PO QID 02/20/20 02/20/20 cholecalciferol (vitamin D3) 50 mcg PO DAILY 02/20/20 02/20/20 [Vitamin D3] diphenhydramine HCl 50 mg PO Q6H PRN 02/20/20 02/20/20 famotidine 40 mg PO DAILY 02/20/20 02/20/20 ferrous sulfate 325 mg PO BID 02/20/20 02/20/20 fluticasone propionate 1 spray INTRANASAL BEDTIME 02/20/20 02/20/20 folic acid 1 mg PO DAILY 02/20/20 02/20/20 guaifenesin 200 mg PO Q4H PRN 02/20/20 02/20/20 guanfacine 1 mg PO DAILY 02/20/20 02/20/20 ibuprofen 600 mg PO Q8H PRN 02/20/20 02/20/20 melatonin 3 mg PO BEDTIME 02/20/20 02/20/20 mercaptopurine 50 mg PO DAILY 02/20/20 02/20/20 multivitamin 1 tab PO DAILY 02/20/20 02/20/20 omega 8-olc-sbs-fish oil [Fish Oil] 1 cap PO TID 02/20/20 02/20/20 polyethylene glycol 3350 17 g PO Q2D 02/20/20 02/20/20 silver sulfadiazine [Silvadene] 1 applic TOPICAL BID 02/20/20 02/20/20 sodium chloride [Saline Nasal Mist] 2 spray INTRANASAL BID PRN 02/20/20 02/20/20 DS: Summary Hospital Course Hospital Course: Tiki Sharp is a 24 year old female with PMH including autism, Crohn's disease, anemia and pica, with a history of swallowing foreign objects, who now presents 3 days following swallowing a screw. She reports she did have some abdominal pain immediately after swallowing the screw which was not severe but that resolved that day. Her PCP was contacted at that time who instructed the longterm to wait 2 days to see if the screw passes. She was brought to the ED to assess if the screw had passed. Chest, abdominal and neck xrays were initially performed which showed the screw in the bowel and a small sliver of free intraperitoneal air. A CT scan abd/pelvis was therefore obtained which redemonstrated the small amount of free intraperitoneal air, the 2.7 cm metallic screw in the cecum but without obvious evidence of bowel perforation or perienteric inflammatory changes. Her WBC was normal and vitals were stable, afebrile. She was admitted to the surgical service and made NPO, placed on IV fluids and observed overnight. On the next hospital day the patient reported feeling great with no abdominal pain. On examination her abdomen was soft and nondistended with no tenderness to palpation. There was no rebound, guarding, or rigidity. Laboratories revealed WBC see the which was normal. A repeat abdominal x-ray revealed no free air with continued foreign body in the cecum. She was started on a regular diet which she tolerated well without nausea or vomiting. On the next hospital day she continue to report no abdominal pain. She reports being hungry and is requesting more food. Vital signs are stable and abdominal exam is essentially unchanged with some minimal tenderness to deep palpation in the epigastrium and right upper quadrant. No peritoneal signs are present. Patient is to be discharged to home on 02/21/2020. She should resume her previous medications and follow-up with surgery as needed. Time Spent with Patient Time attestation: Total time spent providing and/or coordinating discharge services: Discharge coordination time: Less than 30 minutes Physical Exam Vital Signs: Vital Signs: Last Vital Signs Temp 97.3 F 02/21/20 08:00 Pulse 96 02/21/20 08:00 Resp 18 02/21/20 08:00 BP 142/95 H 02/21/20 08:00 Pulse Ox 98 02/21/20 08:00 Body Mass Index 35.5 Const: General: cooperative, comfortable and well developed; No confusion Nutritional Appearance: well nourished Orientation/consciousness: patient oriented x3 and No confusion Eyes: Sclerae: sclerae normal EOM: EOMs intact bilaterally Neck: Neck: Yes normal visual inspection Resp: Effort & Inspection: normal respiratory effort, no cough and no respiratory distress Cardio: Jugular venous distension: no JVD Rate: regular rate Rhythm: regular rhythm GI: Inspection: Yes normal to inspection Palpation (GI): Soft to palpation, Tenderness to palpation present (GI) ( Mild tenderness in the upper abdomen without rebound, guarding, or rigidi), no guarding and not rigid Percussion: Yes normal to percussion Auscultation: normal bowel sounds Skin: General skin exam: dry skin Rashes: no rashes Neuro: General: patient oriented x3, no focal motor deficits and No confusion Extrem: General: Yes no clubbing, cyanosis or edema Right upper extremity: normal capillary refill Left upper extremity: full ROM DS: Data Data Completed and Pending Labs on day of discharge: 02/19/20 XR abdomen 1V Stat XR chest 1V Stat XR soft tissue neck Stat 02/19/20 Breakfast NPO Diet 02/19/20 18:16 CT chest w con Stat 02/19/20 18:17 CT abdomen pelvis w con Stat 02/19/20 19:14 Basic Metabolic Panel Stat Complete Blood Count Auto Diff Stat Hold Lt Blue - Possible Coag Stat 02/19/20 20:42 iohexoL 350 MG/ML [Omnipaque 350 MG/ML] 100 ml IV ONCE ONE 02/19/20 21:30 Transfer Order Routine 02/19/20 22:41 COVID-19 ID NOW (Gautam) Stat 02/20/20 XR abdomen 1V Routine 02/20/20 00:29 Dextrose 5 % and Lactated Ring [D5lr] 1,000 ml IVCONT 125 mls/hr 02/20/20 06:41 Complete Blood Count no Diff DAILY@0600 02/21/20 XR KUB Routine Laboratory Last Values WBC 5.9 X10*3/uL (4.8-10.8) 02/20/20 06:41 RBC 4.32 X10*6/uL (4.20-5.50) 02/20/20 06:41 Hgb 11.8 g/dl (12.0-16.0) L 02/20/20 06:41 Hct 37.2 % (37-47) 02/20/20 06:41 MCV 86.1 fL (80-98) 02/20/20 06:41 MCH 27.3 pg (27.0-33.0) 02/20/20 06:41 MCHC 31.7 g/dl (31.0-35.0) 02/20/20 06:41 RDW 14.6 % (11.0-16.0) 02/20/20 06:41 Plt Count 175 X10*3/uL (160-400) 02/20/20 06:41 MPV 10.3 fL (9.4-12.3) 02/20/20 06:41 Immature Gran % (Auto) Cancelled 02/20/20 06:41 Neut % (Auto) Cancelled 02/20/20 06:41 Lymph % (Auto) Cancelled 02/20/20 06:41 [place] % (Auto) Cancelled 02/20/20 06:41 Eos % (Auto) Cancelled 02/20/20 06:41 Baso % (Auto) Cancelled 02/20/20 06:41 Lymph # (Auto) Cancelled 02/20/20 06:41 [place] # (Auto) Cancelled 02/20/20 06:41 Eos # (Auto) Cancelled 02/20/20 06:41 Baso # (Auto) Cancelled 02/20/20 06:41 Abs Immat Gran (auto) Cancelled 02/20/20 06:41 Absolute Neuts (auto) Cancelled 02/20/20 06:41 Absolute Nucleated RBC 0.000 X10*3/uL (0.0-0.012) 02/20/20 06:41 Nucleated RBC % (auto) 0.0 /100WBC (0.0-0.2) 02/20/20 06:41 Hold Blue Top SEE NOTE 02/19/20 19:14 Sodium 138 mmol/L (135-145) 02/19/20 19:14 Potassium 3.8 mmol/l (3.3-5.1) 02/19/20 19:14 Chloride 101 mmol/L (96-108) 02/19/20 19:14 Carbon Dioxide 28 mmol/L (22-29) 02/19/20 19:14 Anion Gap 13 (12-20) 02/19/20 19:14 BUN 23 mg/dL (9-16) H 02/19/20 19:14 Creatinine 0.92 mg/dL (0.5-1.4) 02/19/20 19:14 Estim Creat Clear Calc 89.8 02/19/20 19:14 Estimated GFR > 60 02/19/20 19:14 Random Glucose 91 mg/dL (60-115) 02/19/20 19:14 Calcium 9.0 mg/dL (8.4-10.2) 02/19/20 19:14 COVID-19 (TACOS) Negative (Negative) 02/19/20 22:41 COVID-19 Clin Com See Note 02/19/20 22:41 Discharge Plan Discharge Patient Disposition: Home, Self-Care Referrals: Galen Xie MD [Primary Care Provider] - (F/u as needed) Jorge Chang MD [Physician] - (as needed) Discharge Medications: Continued diphenhydramine HCl 50 mg Capsule 50 mg PO Q6H PRN (Reason: Itching) RF: 0 atenolol 25 mg Tablet 25 mg PO DAILY RF: 0 melatonin 3 mg Tablet Extended Release 3 mg PO BEDTIME RF: 0 calcium citrate-vitamin D3 [Calcium Citrate + D] 315 mg-5 mcg (200 unit) Tablet 1 tab PO DAILY RF: 0 Calmoseptine 0.44-20.6 % Ointment 1 applic TOPICAL TID PRN (Reason: Rash) RF: 0 acetaminophen 325 mg Tablet 325 mg PO BID PRN (Reason: Pain (Scale Score 1-3)) RF: 0 guanfacine 1 mg Tablet 1 mg PO DAILY RF: 0 cholecalciferol (vitamin D3) [Vitamin D3] 50 mcg (2,000 unit) Tablet 50 mcg PO DAILY RF: 0 Stelara 90 mg/mL Syringe 90 mg SUBCUT Q4W RF: 0 famotidine 40 mg Tablet 40 mg PO DAILY RF: 0 folic acid 1 mg Tablet 1 mg PO DAILY RF: 0 sodium chloride [Saline Nasal Mist] 0.65 % Aerosol,[place] 2 spray INTRANASAL BID PRN (Reason: Dry Nasal Passages) RF: 0 omega 0-dde-ubn-fish oil [Fish Oil] 1,000 mg (120 mg-180 mg) Capsule 1 cap PO TID RF: 0 multivitamin Tablet 1 tab PO DAILY RF: 0 ferrous sulfate 325 mg (65 mg iron) Tablet 325 mg PO BID RF: 0 fluticasone propionate 50 mcg/actuation [place],Suspension 1 spray INTRANASAL BEDTIME RF: 0 mercaptopurine 50 mg Tablet 50 mg PO DAILY RF: 0 polyethylene glycol 3350 17 gram/dose Powder 17 g PO Q2D RF: 0 guaifenesin 100 mg/5 mL Liquid 200 mg PO Q4H PRN (Reason: Cough) RF: 0 silver sulfadiazine [Silvadene] 1 % Cream 1 applic TOPICAL BID RF: 0 cephalexin [Keflex] 500 mg Capsule 500 mg PO QID RF: 0 ibuprofen 600 mg Tablet 600 mg PO Q8H PRN (Reason: joint pain) RF: 0 Discharge Orders: Discharge Order (Routine); Ordered 02/21/20 Ordered By: Jorge Chang Diet: advance to usual diet Activity on Discharge: No Restrictions Visit Report Forms: Patient Portal Discharge page Care Plan Goals: Return to normal activities Health Concerns: Pica, swallowed foreign body Plan of Treatment: Observation
--- NOTE | 2020-02-21 09:57 | MHC.CM.PN ---
PATIENT IS DISCHARGED BACK TO HER PRISON SETTING WITH NO NEED FOR ADDITIONAL SERVICES. RN AND UNIT AWARE. [facility] STAFF TO TRANSPORT
[2020-02-21 11:22] VITALS: BP 138/40; PULSE 98; RESP 19; TEMP 36.2; O2SAT 100
== END 2020-02-21 13:00 | disposition home or self-care (01) | DRG 394 ==
LOC: HO.ED 21:57 → HO.S3 02-20 00:01
PROVIDERS: Physician Assistant Medical; Admitting Provider Surgery; Emergency Provider Internal Medicine; PCP Internal Medicine; Visit Provider Surgery
DX: T18.4XXA Foreign body in colon, initial encounter (principal); L03.116 Cellulitis of left lower limb; Q87.11 Prader-Willi syndrome; F84.0 Autistic disorder; K59.09 Other constipation; X58.XXXA Exposure to other specified factors, initial encounter; Y93.9 Activity, unspecified; Y92.9 Unspecified place or not applicable; Y99.9 Unspecified external cause status; Z20.828 Contact with and (suspected) exposure to other viral communicable diseases; Z79.1 Long term (current) use of non-steroidal anti-inflammatories (NSAID); Z79.51 Long term (current) use of inhaled steroids; Z79.899 Other long term (current) drug therapy
CPT/HCPCS: 36415; 70360; 71045; 71260; 74018; 74177; 80048; 85025; 85027; 87635; 99285; Q9967

== ENCOUNTER 2020-02-21 16:33 | Emergency (ER) | payer MEDICARE, MEDICAID, SELFPAY ==
[2020-02-21 16:47] VITALS: PULSE 91; RESP 16; TEMP 37.3; O2SAT 100; BMI 35.1
--- NOTE | 2020-02-21 16:56 | ED_ITS ---
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: mouth Radiation: non-radiation Relieving factors: other (removed plastic wrap for us in ED) Exacerbating factors: none Associated symptoms: denies other symptoms Treatments prior to arrival: none Related Data Home Medications Medication Instructions Recorded Confirmed Calmoseptine 1 applic TOPICAL TID PRN 02/20/20 02/20/20 Stelara 90 mg SUBCUT Q4W 02/20/20 02/20/20 acetaminophen 325 mg PO BID PRN 02/20/20 02/20/20 atenolol 25 mg PO DAILY 02/20/20 02/21/20 calcium citrate-vitamin D3 1 tab PO DAILY 02/20/20 02/21/20 [Calcium Citrate + D] cephalexin [Keflex] 500 mg PO QID 02/20/20 02/21/20 cholecalciferol (vitamin D3) 50 mcg PO DAILY 02/20/20 02/21/20 [Vitamin D3] diphenhydramine HCl 50 mg PO Q6H PRN 02/20/20 02/21/20 famotidine 40 mg PO DAILY 02/20/20 02/21/20 ferrous sulfate 325 mg PO BID 02/20/20 02/21/20 fluticasone propionate 1 spray INTRANASAL BEDTIME 02/20/20 02/20/20 folic acid 1 mg PO DAILY 02/20/20 02/21/20 guaifenesin 200 mg PO Q4H PRN 02/20/20 02/20/20 guanfacine 1 mg PO DAILY 02/20/20 02/21/20 ibuprofen 600 mg PO Q8H PRN 02/20/20 02/20/20 melatonin 3 mg PO BEDTIME 02/20/20 02/21/20 mercaptopurine 50 mg PO DAILY 02/20/20 02/21/20 multivitamin 1 tab PO DAILY 02/20/20 02/20/20 omega 5-zlp-mnq-fish oil [Fish Oil] 1 cap PO TID 02/20/20 02/20/20 polyethylene glycol 3350 17 g PO Q2D 02/20/20 02/20/20 silver sulfadiazine [Silvadene] 1 applic TOPICAL BID 02/20/20 02/20/20 sodium chloride [Saline Nasal Mist] 2 spray INTRANASAL BID PRN 02/20/20 02/20/20 Allergies Allergy/AdvReac Type Severity Reaction Status Date / Time silver Allergy Unknown RASH Verified 02/19/20 17:06 [From TEGADERM AG MESH] transparent dressing Allergy Unknown skin Verified 02/19/20 17:06 irritation sensitivity haloperidol [From HALDOL] AdvReac Intermediate UNKNOWN Verified 02/19/20 17:06 Haldol Allergy Unknown paradoxical Uncoded 02/12/20 11:40 effect Tegaderm CHG dressing: Allergy Unknown skin Uncoded 02/12/20 11:40 irritation Review of Systems Review of Systems: Constitutional : No Weight loss, No Fever, No Chills, No Fatigue, No Malaise ENT/Mouth : No sore throat, No Rhinorrhea Cardiovascular : No Chest Pain, No SOB, No Dyspnea on Exertion Respiratory : No Cough, No Sputum, No Wheezing Gastrointestinal : No Nausea, No Vomiting, No Diarrhea, No Constipation, No abdominal Pain, No Hematochezia, No Melena Musculoskeletal : No joint pain, No Myalgias, No Joint Swelling Skin : No Skin Lesions, No rash Neuro : No Weakness, No Numbness, No Dizziness, No Headache PMFSH Past Medical History Attestation statement: The following information was validated with the patient. Medical History Acute constipation Anemia Anxiety Autistic disorder Chronic constipation Colitis Crohn's disease Developmental delay, mild Iron deficiency Mood disorder Pica in adults Prader-Willi syndrome PTSD (post-traumatic stress disorder) Vitamin D deficiency Surgical History History of abdominal surgery History of throat surgery Family History Family History Father No problems noted. Mother No problems noted. Social History Social History Household Members: Other Housing: Other Alcohol intake: never Smoking Status: Never smoker Advance Directives: No Advance Directives Information Provided: Yes service: No Current occupational status: disabled Physical Exam Vital Signs: Vital Signs: Last Vital Signs Temp 99.2 F 02/21/20 16:47 Pulse 91 02/21/20 16:47 Resp 16 02/21/20 16:47 Pulse Ox 100 02/21/20 16:47 Body Mass Index 35.1 Appearance: Alert. Oriented X3. No acute distress. Eyes: Pupils equal, round and reactive to light. ENT: Pharynx normal. no signs of trauma, no FB, no change in voice, no drooling Neck: Normal inspection. Neck supple. CVS: Normal heart rate and rhythm. Pulses normal. Respiratory: No respiratory distress. Breath sounds normal. Abdomen: Soft and non-tender. Skin: Skin warm and dry. Normal skin color. Normal skin turgor. Extremities: No lower extremity edema. No calf ttp Neuro: Oriented X 3. No motor deficit. No sensory deficit. Course Course Course Narrative: on DC the staff requesting patien be seen by N, they do not feel she is safe at long term, wants crisis to say she is stable for DC back to home signed out pending N Medical Decision Making MDM Narrative Medical decision making narrative: 24 yo female with hx of PICA well known to our ED for ingesting materials here after putting a wad of plastic saran wrap in her mouth - did not ingest it, she has no signs of trauma, she has a normal voice and no drooling - passed PO challenge, witnessed ingestion by staff, stable for DC Discharge Plan Discharge Clinical Impression: Pica Instructions: Foreign Body Ingestion (ED) Additional Instructions: return to ED for any worsening symptoms or concerns Prescriptions: No Action diphenhydramine HCl 50 mg Capsule 50 mg PO Q6H PRN (Reason: Itching) RF: 0 atenolol 25 mg Tablet 25 mg PO DAILY RF: 0 melatonin 3 mg Tablet Extended Release 3 mg PO BEDTIME RF: 0 calcium citrate-vitamin D3 [Calcium Citrate + D] 315 mg-5 mcg (200 unit) Tablet 1 tab PO DAILY RF: 0 Calmoseptine 0.44-20.6 % Ointment 1 applic TOPICAL TID PRN (Reason: Rash) RF: 0 acetaminophen 325 mg Tablet 325 mg PO BID PRN (Reason: Pain (Scale Score 1-3)) RF: 0 guanfacine 1 mg Tablet 1 mg PO DAILY RF: 0 cholecalciferol (vitamin D3) [Vitamin D3] 50 mcg (2,000 unit) Tablet 50 mcg PO DAILY RF: 0 Stelara 90 mg/mL Syringe 90 mg SUBCUT Q4W RF: 0 famotidine 40 mg Tablet 40 mg PO DAILY RF: 0 folic acid 1 mg Tablet 1 mg PO DAILY RF: 0 sodium chloride [Saline Nasal Mist] 0.65 % Aerosol,[place] 2 spray INTRANASAL BID PRN (Reason: Dry Nasal Passages) RF: 0 omega 1-gwg-ivb-fish oil [Fish Oil] 1,000 mg (120 mg-180 mg) Capsule 1 cap PO TID RF: 0 multivitamin Tablet 1 tab PO DAILY RF: 0 ferrous sulfate 325 mg (65 mg iron) Tablet 325 mg PO BID RF: 0 fluticasone propionate 50 mcg/actuation [place],Suspension 1 spray INTRANASAL BEDTIME RF: 0 mercaptopurine 50 mg Tablet 50 mg PO DAILY RF: 0 polyethylene glycol 3350 17 gram/dose Powder 17 g PO Q2D RF: 0 guaifenesin 100 mg/5 mL Liquid 200 mg PO Q4H PRN (Reason: Cough) RF: 0 silver sulfadiazine [Silvadene] 1 % Cream 1 applic TOPICAL BID RF: 0 cephalexin [Keflex] 500 mg Capsule 500 mg PO QID RF: 0 ibuprofen 600 mg Tablet 600 mg PO Q8H PRN (Reason: joint pain) RF: 0 Referrals: Galen Xie MD [Primary Care Provider] - 2 days (as needed)
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
--- NOTE | 2020-02-21 18:26 | PC.NURSE ---
Pt transferred from Main ED. Affect bright, pt w/ caregiver. Pt willing to changeover into ED clothing.
--- NOTE | 2020-02-21 18:51 | PC.NURSE ---
Pt awake, alert, affect bright, joking w/ staff. Staff from jail in w/ pt. Dinner obtained by pt. Pt w/ sores on right calf, pt reports she has been 'picking scabs.'
--- NOTE | 2020-02-21 19:25 | PC.NURSE ---
Patient is in her room, sitting in her bed, talking to detention staff, engaged, staff requested to call detention have them fax the MAR/called/waiting for fax, no distress observed/reported, will continue to monitor.
[2020-02-21] MEDS: cephALEXin 500 MG CAPSULE PO (20:47)
--- NOTE | 2020-02-22 01:15 | PC.NURSE ---
JOSE here to see patient, patient stated I am exhausted, I cant talk to anyone [facility] clinician made aware.
[2020-02-22 06:00] VITALS: BP 117/63; PULSE 72; RESP 18; TEMP 36.6; O2SAT 98
--- NOTE | 2020-02-22 06:59 | PC.NURSE ---
Report recieved. PT currently eating breakfast, staff at bedside. PT calm and coopeartive, waiting to be seen by BHN.
[2020-02-22 09:21] VITALS: BP 141/93; PULSE 88; RESP 18; TEMP 36.6; O2SAT 96
[2020-02-22 10:02] VITALS: BP 141/93; PULSE 88
[2020-02-22] MEDS: atenoloL 25 MG TABLET PO (10:02)
[2020-02-22] MEDS: Famotidine 20 MG TABLET 40 MG PO (10:02)
[2020-02-22] MEDS: Ferrous Sulfate 324 MG TABLET.DR PO (10:03)
[2020-02-22] MEDS: Folic Acid 1 MG TABLET PO (10:03)
[2020-02-22] MEDS: Cholecalciferol (Vitamin D3) 25 MCG TABLET 50 MCG PO (10:03)
[2020-02-22] MEDS: cephALEXin 500 MG CAPSULE PO (10:03)
== END 2020-02-22 10:26 | disposition home or self-care (01) ==
PROVIDERS: Emergency Provider Emergency Medicine; PCP Internal Medicine
DX: F50.89 Other specified eating disorder (principal); Z79.899 Other long term (current) drug therapy
CPT/HCPCS: 99284

== ENCOUNTER 2020-03-01 10:55 | Outpatient (REF) | payer MEDICARE, MEDICAID, SELFPAY ==
--- NOTE | 2020-03-01 11:34 | XR_ITS ---
EXAMINATION: XR ABDOMEN COMPLETE CLINICAL INDICATION: Abdominal pain. COMPARISON: [facility] 08/26/2019. TECHNIQUE: 2 views of the abdomen. FINDINGS: There is moderate scattered stool in the colon without distention. The small bowel loops are unremarkable. No radiopaque renal calculi visualized. There is mild levoscoliosis of dorsolumbar spine. No lytic process. XR/XR abdomen min 2V IMPRESSION: Mild to moderate constipation. No acute process seen.
== END 2020-03-01 10:56 | disposition home or self-care (01) ==
LOC: HO.XRAY 10:55
PROVIDERS: PCP Internal Medicine; Referring Provider Internal Medicine; Visit Provider Surgery
DX: K66.8 Other specified disorders of peritoneum (principal)
CPT/HCPCS: 74019; 99212

== ENCOUNTER 2020-03-12 14:12 | Outpatient (REF) | payer MEDICARE, MEDICAID, SELFPAY ==
--- NOTE | 2020-03-12 14:16 | US_ITS ---
EXAMINATION: US VENOUS ULTRASOUND WITH DOPPLER LOWER EXTREMITY, LEFT CLINICAL INFORMATION: Pain left leg. COMPARISON: Ultrasound venous left leg 12/31/2018 TECHNIQUE: Ultrasound of the deep veins is performed from the hip to the calf with compression sonography and color and pulse Doppler assessment. Spectral analysis with color-flow imaging is performed. FINDINGS: There is normal venous compression and respiratory variation and augmented flow. The visualized common femoral vein, superficial femoral vein, profunda femoral vein, popliteal vein, and the trifurcation region shows no evidence of deep venous thrombosis. There is no significant popliteal fossa cyst. US/US venous duplex LE LT IMPRESSION: No DVT demonstrated in the left lower extremity.
== END 2020-03-12 14:13 | disposition home or self-care (01) ==
LOC: HO.HMGCX 14:12
PROVIDERS: PCP Internal Medicine; Visit Provider Internal Medicine
DX: M79.605 Pain in left leg (principal); M79.89 Other specified soft tissue disorders
CPT/HCPCS: 93971

== ENCOUNTER 2020-04-15 04:32 | Emergency (ER) | payer MEDICARE, MEDICAID, SELFPAY ==
[2020-04-15 04:35] VITALS: BP 137/70; PULSE 77; RESP 16; TEMP 36.3; O2SAT 100; BMI 36.6
--- NOTE | 2020-04-15 05:20 | ED_ITS ---
HPI - Skin/Abscess/Foreign Bdy General Chief complaint: Skin/Abscess/Foreign Body Stated complaint: sore throat Time Seen by Provider: 04/15/20 05:20 Source: patient Mode of arrival: ambulatory History of Present Illness HPI narrative: Is a 25-year-old female brought in by her jail after reportedly swallowing a coin face CT and currently denies any difficulty breathing or speaking. Patient reports that her throat feels scratchy and denies that the foreign object is in her stomach as she states she can feel in the back of her throat. Related Data Home Medications Medication Instructions Recorded Confirmed Calmoseptine 1 applic TOPICAL TID PRN 02/20/20 03/12/20 Stelara 90 mg SUBCUT Q4W 02/20/20 03/12/20 acetaminophen 325 mg PO BID PRN 02/20/20 03/12/20 atenolol 25 mg PO DAILY 02/20/20 03/12/20 calcium citrate-vitamin D3 1 tab PO DAILY 02/20/20 03/12/20 [Calcium Citrate + D] cholecalciferol (vitamin D3) 50 mcg PO DAILY 02/20/20 03/12/20 [Vitamin D3] famotidine 40 mg PO DAILY 02/20/20 03/12/20 ferrous sulfate 325 mg PO BID 02/20/20 03/12/20 fluticasone propionate 1 spray INTRANASAL BEDTIME 02/20/20 03/12/20 guaifenesin 200 mg PO Q4H PRN 02/20/20 03/12/20 guanfacine 1 mg PO DAILY 02/20/20 03/12/20 ibuprofen 600 mg PO Q8H PRN 02/20/20 03/12/20 melatonin 3 mg PO BEDTIME 02/20/20 03/12/20 mercaptopurine 50 mg PO DAILY 02/20/20 03/12/20 multivitamin 1 tab PO DAILY 02/20/20 03/12/20 silver sulfadiazine [Silvadene] 1 applic TOPICAL BID 02/20/20 03/12/20 sodium chloride [Saline Nasal Mist] 2 spray INTRANASAL BID PRN 02/20/20 03/12/20 Previous Rx's Medication Instructions Recorded polyethylene glycol 3350 17 3.5 g PO QAM #510 g 02/26/20 gram/dose oral powder omega 8-fwu-aif-fish oil 300 1 cap PO TID #90 cap 12/14/20 mg-1,000 mg capsule furosemide 20 mg tablet 20 mg PO QAM 7 Days #7 tab 03/12/20 folic acid 1 mg tablet 1 mg PO DAILY 90 Days #90 tab 04/01/20 Allergies Allergy/AdvReac Type Severity Reaction Status Date / Time silver Allergy Unknown RASH Verified 03/12/20 11:04 [From TEGADERM AG MESH] transparent dressing Allergy Unknown skin Verified 03/12/20 11:04 irritation sensitivity haloperidol [From HALDOL] AdvReac Intermediate UNKNOWN Verified 03/12/20 11:04 Haldol Allergy Unknown paradoxical Uncoded 02/12/20 11:40 effect Tegaderm CHG dressing: Allergy Unknown skin Uncoded 02/12/20 11:40 irritation Review of Systems Review of Systems: Pertinent positives and negatives as stated in HPI 10 point review of systems otherwise negative. PMFSH Past Medical History Source: nursing notes reviewed Medical History Acute constipation Anemia Anxiety Autistic disorder Chronic constipation Colitis Crohn's disease Developmental delay, mild Hypertension, essential Iron deficiency Mood disorder Pain of left lower extremity Pica in adults Prader-Willi syndrome PTSD (post-traumatic stress disorder) Swelling of left lower extremity Vitamin D deficiency Surgical History History of abdominal surgery History of throat surgery Family History Family History Father No problems noted. Mother No problems noted. Social History Social History Household Members: Other Housing: Other Alcohol intake: never Smoking Status: Never smoker Use of substances other than those prescribed or required for medical reasons: No Advance Directives: No Advance Directives Information Provided: No service: No Current occupational status: disabled Physical Exam Vital Signs: Vital Signs: Last Vital Signs Temp 97.4 F 04/15/20 04:35 Pulse 77 04/15/20 04:35 Resp 16 04/15/20 04:35 BP 137/70 04/15/20 04:35 Pulse Ox 100 04/15/20 04:35 Body Mass Index 36.6 VITAL SIGNS: Reviewed. GENERAL: Well developed, well nourished, in no acute distress. NOSE: Nares patent bilateral OROPHARYNX: no oral lesions noted, posterior pharynx clear and on evaluation with tongue blade and light the foreign object was visualized in the vallecular area NECK: Supple, no adenopathy LUNGS: Normal breath sounds. No adventitious sounds or accessory muscle use. SpO2<100> CARDIOVASCULAR: Regular rate and rhythm without noted murmurs, no JVD or lower extremity edema. ABDOMEN: Obese, Soft, non-tender, non-distended with bowel sounds. NEUROLOGIC: Alert and oriented x 3. Course Course Course Narrative: This is a 25-year-old female with history and clinical presentation consistent with multiple swallowing events and as the foreign body was visualized well, removed foreign object with airways of eyes at bedside with Roseline forceps. Patient tolerated procedure well please see the procedure note for full details. Patient was provided with prophylactic steroids as well as imaging to ascertain no further foreign bodies despite patient denying that she had swallowed anything else. Patient was then discharged in stable condition after review of films were found to be negative. Procedures Foreign Body Removal Time Out Performed: no Site: oral Description of foreign body: other (Toothpaste cap) Sedation/Analgesia: none Technique: removal with forceps (Roseline forceps) Confirmed by:: direct visualization and radiograph Complications: none Post-procedure exam: awake, alert, normal BP, normal HR and normal O2 sat Discharge Plan Discharge Clinical Impression: Foreign body Patient Disposition: Home, Self-Care Instructions: Foreign Body in Pharynx (ED) Additional Instructions: Please do not hesitate to return emergency department should you have any acute worsening or recurrence of ear problems. Prescriptions: No Action polyethylene glycol 3350 17 gram/dose powder 3.5 g PO QAM Qty: 510 RF: 11 omega 2-lqe-mxd-fish oil 300-1,000 mg capsule 1 cap PO TID Qty: 90 RF: 3 folic acid 1 mg tablet 1 mg PO DAILY 90 Days Qty: 90 RF: 3 atenolol 25 mg Tablet 25 mg PO DAILY RF: 0 melatonin 3 mg Tablet Extended Release 3 mg PO BEDTIME RF: 0 calcium citrate-vitamin D3 [Calcium Citrate + D] 315 mg-5 mcg (200 unit) Tablet 1 tab PO DAILY RF: 0 Calmoseptine 0.44-20.6 % Ointment 1 applic TOPICAL TID PRN (Reason: Rash) RF: 0 acetaminophen 325 mg Tablet 325 mg PO BID PRN (Reason: Pain (Scale Score 1-3)) RF: 0 guanfacine 1 mg Tablet 1 mg PO DAILY RF: 0 cholecalciferol (vitamin D3) [Vitamin D3] 50 mcg (2,000 unit) Tablet 50 mcg PO DAILY RF: 0 Stelara 90 mg/mL Syringe 90 mg SUBCUT Q4W RF: 0 famotidine 40 mg Tablet 40 mg PO DAILY RF: 0 sodium chloride [Saline Nasal Mist] 0.65 % Aerosol,[place] 2 spray INTRANASAL BID PRN (Reason: Dry Nasal Passages) RF: 0 multivitamin Tablet 1 tab PO DAILY RF: 0 ferrous sulfate 325 mg (65 mg iron) Tablet 325 mg PO BID RF: 0 fluticasone propionate 50 mcg/actuation [place],Suspension 1 spray INTRANASAL BEDTIME RF: 0 mercaptopurine 50 mg Tablet 50 mg PO DAILY RF: 0 guaifenesin 100 mg/5 mL Liquid 200 mg PO Q4H PRN (Reason: Cough) RF: 0 silver sulfadiazine [Silvadene] 1 % Cream 1 applic TOPICAL BID RF: 0 ibuprofen 600 mg Tablet 600 mg PO Q8H PRN (Reason: joint pain) RF: 0 furosemide [Lasix] 20 mg tablet 20 mg PO QAM 7 Days Qty: 7 RF: 0 Referrals: Physician,Unknown [Primary Care Provider] - 2 days
--- NOTE | 2020-04-15 05:28 | XR_ITS ---
EXAMINATION: XR SOFT TISSUE NECK CLINICAL INDICATION: post FB removal COMPARISON: 02/19/2020 TECHNIQUE: 2 views of the soft tissue neck were obtained. FINDINGS: Soft tissue films of the neck demonstrate a normal larynx, pharynx and upper trachea. No soft tissue swelling or opaque foreign body is demonstrated. No soft tissue gas is identified. XR/XR soft tissue neck IMPRESSION: Unremarkable examination.
--- NOTE | 2020-04-15 05:29 | XR_ITS ---
EXAMINATION: XR CHEST CLINICAL INFORMATION: Question foreign body. COMPARISON: 02/19/2020 TECHNIQUE: Frontal view of the chest was obtained. FINDINGS: No significant abnormality is noted involving the heart, lungs, mediastinum, bony thorax or soft tissues. XR/XR chest 1V IMPRESSION: No radiodense foreign bodies. Normal chest radiograph.
[2020-04-15] MEDS: dexAMETHasone 6 MG TABLET PO (05:46)
== END 2020-04-15 06:44 | disposition home or self-care (01) ==
PROVIDERS: Emergency Provider Student in an Organized Health Care Education/Training Program
DX: T17.298A Other foreign object in pharynx causing other injury, initial encounter (principal); X58.XXXA Exposure to other specified factors, initial encounter; Y93.9 Activity, unspecified; Y92.049 Unspecified place in boarding-house as the place of occurrence of the external cause; Y99.9 Unspecified external cause status
CPT/HCPCS: 42809; 70360; 71045; 99283; 99284; J8540

== ENCOUNTER 2020-04-16 04:22 | Emergency (ER) | payer MEDICARE, MEDICAID, SELFPAY ==
--- NOTE | 2020-04-16 | XR_ITS ---
EXAMINATION: CHEST X-RAY CLINICAL INFORMATION: Shortness of breath COMPARISON: Previous chest x-ray most recent from yesterday TECHNIQUE: One view chest FINDINGS: The cardiac and mediastinal contours are normal. The lungs are clear. There is no pleural effusion or pneumothorax. There is curvature of the proximal lumbar spine to the left. XR/XR chest 1V IMPRESSION: No evidence for acute disease in the chest. EXAMINATION: Cervical spine x-ray CLINICAL INFORMATION: Neck pain COMPARISON: None. TECHNIQUE: 2 views of the soft tissues of the neck FINDINGS: No abnormal air collection, prevertebral soft tissue swelling or radiopaque soft tissue foreign body is seen. There is question of wall thickening of the trachea on the lateral view. Bony structures are unremarkable. IMPRESSION: Question wall thickening of the trachea on the lateral view. Otherwise unremarkable exam
--- NOTE | 2020-04-16 | XR_ITS ---
EXAMINATION: CHEST X-RAY CLINICAL INFORMATION: Shortness of breath COMPARISON: Previous chest x-ray most recent from yesterday TECHNIQUE: One view chest FINDINGS: The cardiac and mediastinal contours are normal. The lungs are clear. There is no pleural effusion or pneumothorax. There is curvature of the proximal lumbar spine to the left. XR/XR soft tissue neck IMPRESSION: No evidence for acute disease in the chest. EXAMINATION: Cervical spine x-ray CLINICAL INFORMATION: Neck pain COMPARISON: None. TECHNIQUE: 2 views of the soft tissues of the neck FINDINGS: No abnormal air collection, prevertebral soft tissue swelling or radiopaque soft tissue foreign body is seen. There is question of wall thickening of the trachea on the lateral view. Bony structures are unremarkable. IMPRESSION: Question wall thickening of the trachea on the lateral view. Otherwise unremarkable exam
== END 2020-04-16 07:07 | disposition home or self-care (01) ==
PROVIDERS: Emergency Provider Emergency Medicine; PCP Internal Medicine
DX: T17.298A Other foreign object in pharynx causing other injury, initial encounter (principal); X58.XXXA Exposure to other specified factors, initial encounter; F84.0 Autistic disorder; R62.50 Unspecified lack of expected normal physiological development in childhood; I10 Essential (primary) hypertension; Q87.11 Prader-Willi syndrome; F50.89 Other specified eating disorder; Y93.9 Activity, unspecified; Y92.9 Unspecified place or not applicable; Y99.9 Unspecified external cause status
CPT/HCPCS: 42809; 70360; 71045; 99284

== ENCOUNTER 2020-05-28 08:06 | Emergency (ER) | payer MEDICARE, MEDICAID, SELFPAY ==
--- NOTE | ~2020-05-28 | CT_ITS ---
EXAMINATION: CT HEAD WITHOUT CONTRAST CLINICAL INFORMATION: Behavioral change. Assess for hydrocephalus. COMPARISON: None TECHNIQUE: Contiguous axial imaging was performed from the skull base to vertex without intravenous administration of contrast. Additional 2-D coronal and sagittal reformatted images are generated on the CT workstation and uploaded to PACS. This CT examination was performed using dose optimization techniques as appropriate, variously including the following: *Automated exposure control *Adjustment of mA and/or kV according to patient size (this includes techniques or standardized protocols for targeted exams where dose is matched to indication/reason for exam; i.e. extremities or head) *Use of iterative reconstruction technique DLP: 690 mGy-cm FINDINGS: There is no intracranial hemorrhage, hematoma, or extra-axial fluid collection. The ventricles are normal in size. There is no hydrocephalus, edema, or mass effect. The anthony-white matter differentiation appears symmetric. There is no visible acute territorial infarct or mass lesion. The calvarium appears intact. There is no pneumocephalus or orbital emphysema. The visualized sinuses and middle ears and mastoid air cells show no significant mucosal thickening. There are no air-fluid levels. CT/CT head/brain wo con IMPRESSION: Unremarkable noncontrast CT head.
[2020-05-28 08:08] VITALS: BP 151/88; PULSE 101; RESP 18; TEMP 37.2; O2SAT 96; BMI 39.8
--- NOTE | 2020-05-28 08:16 | ED_ITS ---
HPI - General Adult General Chief complaint: Dental/Oral Stated complaint: CHOKING ON TOOTHPASTE CAP,OBSTRUCTED PER EMS Time Seen by Provider: 05/28/20 08:16 Source: patient, EMS and old records reviewed Mode of arrival: EMS Limitations: no limitations History of Present Illness HPI narrative: in shower ingested large white round toothpaste top - hx of PICA similar presentations in the past MD complaint: ingestion of FB - intentional Onset (ago): minute(s) (just [employer]) Location: mouth Radiation: non-radiation Severity: severe and similar to prior episodes Quality: dull Relieving factors: none Exacerbating factors: other (trying to swallow) Associated symptoms: denies other symptoms Treatments prior to arrival: none Related Data Home Medications Medication Instructions Recorded Confirmed Calmoseptine 1 applic TOPICAL TID PRN 02/20/20 05/28/20 Stelara 90 mg SUBCUT Q4W 02/20/20 05/28/20 acetaminophen 325 mg PO BID PRN 02/20/20 05/28/20 atenolol 25 mg PO DAILY 02/20/20 05/28/20 calcium citrate-vitamin D3 1 tab PO DAILY 02/20/20 05/28/20 [Calcium Citrate + D] famotidine 40 mg PO DAILY 02/20/20 05/28/20 ferrous sulfate 325 mg PO BID 02/20/20 05/28/20 guaifenesin 200 mg PO Q4H PRN 02/20/20 05/28/20 guanfacine 1 mg PO DAILY 02/20/20 05/28/20 ibuprofen 600 mg PO Q8H PRN 02/20/20 05/28/20 melatonin 3 mg PO BEDTIME 02/20/20 05/28/20 mercaptopurine 50 mg PO DAILY 02/20/20 05/28/20 multivitamin 1 tab PO DAILY 02/20/20 05/28/20 sodium chloride [Saline Nasal Mist] 2 spray INTRANASAL BID PRN 02/20/20 05/28/20 diphenhydramine HCl [Benadryl] 50 mg PO Q6H PRN 05/28/20 05/28/20 Previous Rx's Medication Instructions Recorded polyethylene glycol 3350 17 3.5 g PO QAM #510 g 02/26/20 gram/dose oral powder omega 1-zfg-ebk-fish oil 300 1 cap PO TID #90 cap 03/11/20 mg-1,000 mg capsule folic acid 1 mg tablet 1 mg PO DAILY 90 Days #90 tab 04/01/20 fluticasone propionate 50 1 spray INTRANASAL BEDTIME #16 g 04/22/20 mcg/actuation nasal spray,suspension cholecalciferol (vitamin D3) 50 50 mcg PO DAILY #30 tab 05/23/20 mcg (2,000 unit) tablet Allergies Allergy/AdvReac Type Severity Reaction Status Date / Time silver Allergy Unknown RASH Verified 03/12/20 11:04 [From TEGADERM AG MESH] transparent dressing Allergy Unknown skin Verified 03/12/20 11:04 irritation sensitivity haloperidol [From HALDOL] AdvReac Intermediate UNKNOWN Verified 03/12/20 11:04 Haldol Allergy Unknown paradoxical Uncoded 02/12/20 11:40 effect Tegaderm CHG dressing: Allergy Unknown skin Uncoded 02/12/20 11:40 irritation Review of Systems Review of Systems: ROS unable to be obtained due to partial airway obstruction PMFSH Past Medical History Attestation statement: The following information was validated with the patient. Medical History Acute constipation Anemia Anxiety Autistic disorder Chronic constipation Colitis Crohn's disease Developmental delay, mild Hypertension, essential Iron deficiency Mood disorder Pain of left lower extremity Pica in adults Prader-Willi syndrome PTSD (post-traumatic stress disorder) Swelling of left lower extremity Vitamin D deficiency Surgical History History of abdominal surgery History of throat surgery Family History Family History Father No problems noted. Mother No problems noted. Social History Social History Household Members: Other Housing: Other Alcohol intake: never Smoking Status: Never smoker Advance Directives: No Advance Directives Information Provided: No service: No Current occupational status: disabled Physical Exam Vital Signs: Vital Signs: Last Vital Signs Temp 98.9 F 05/28/20 08:08 Pulse 101 H 05/28/20 08:08 Resp 18 05/28/20 08:08 BP 151/88 H 05/28/20 08:08 Pulse Ox 96 05/28/20 08:08 Body Mass Index 39.8 Appearance: Alert. Oriented X3. Moderate acute distress. Eyes: Pupils equal, round and reactive to light. ENT: Pharynx moderate saliva, scant red streaks noted but minimal in posterior oropharyn white toothpaste cap noted, removed immediately with oumou clamps Neck: Normal inspection. Neck supple. CVS: Normal heart rate and rhythm. Pulses normal. Respiratory: Mild respiratory distress. Breath sounds normal. Abdomen: Soft and nontender. Skin: Skin warm and dry. Normal skin color. Normal skin turgor. Extremities: No lower extremity edema. No calf ttp Neuro: Oriented X 3. No motor deficit. No sensory deficit. Course Course Course Narrative: long-term requesting crisis consult she has no SI - will offer CARE team, this is a chronic presentation no further bleeding, no swelling, no change in voice, able to drink water 846am no further bleeding, no change in voice, no swelling - medically cleared at 1.5 hours signed out pending [facility] input - patient is a bed search that has been going on from the community unsure if she will stay here until bed found or if long-term will take her back Procedures Foreign Body Removal Time Out Performed: yes Site: oral Description of foreign body: other (large round tooth paste top) Sedation/Analgesia: none Technique: removal with forceps Confirmed by:: direct visualization Complications: none Post-procedure exam: awake, alert Neurovascular: normal distal pulse Medical Decision Making [facility] Narrative Medical decision making narrative: 25 yo female with Prader Willi and PICA with chronic FB ingestions - stat removal will observe airway x 2 hours Critical Care Time Critical Care Time Critical Care Time: Yes Total Critical Care Time: 35 Attestation: removal of FB causing partial obstruction of throat, airway observation, recheck exams. I attest to this time spent taking care of the patient Discharge Plan Discharge Clinical Impression: Foreign body in throat Qualifiers: Encounter type: initial encounter Qualified Code(s): T17.208A - Unspecified foreign body in pharynx causing other injury, initial encounter Patient Disposition: Home, Self-Care Instructions: Foreign Body in Pharynx (ED) Additional Instructions: return to ED for any worsening symptoms or concerns Prescriptions: No Action polyethylene glycol 3350 17 gram/dose powder 3.5 g PO QAM Qty: 510 RF: 11 omega 4-mbw-zep-fish oil 300-1,000 mg capsule 1 cap PO TID Qty: 90 RF: 3 folic acid 1 mg tablet 1 mg PO DAILY 90 Days Qty: 90 RF: 3 fluticasone propionate 50 mcg/actuation spray,suspension 1 spray intranasal BEDTIME Qty: 16 RF: 0 cholecalciferol (vitamin D3) [Vitamin D3] 50 mcg (2,000 unit) tablet 50 mcg PO DAILY Qty: 30 RF: 0 atenolol 25 mg Tablet 25 mg PO DAILY RF: 0 melatonin 3 mg Tablet Extended Release 3 mg PO BEDTIME RF: 0 calcium citrate-vitamin D3 [Calcium Citrate + D] 315 mg-5 mcg (200 unit) Tablet 1 tab PO DAILY RF: 0 Calmoseptine 0.44-20.6 % Ointment 1 applic TOPICAL TID PRN (Reason: Rash) RF: 0 acetaminophen 325 mg Tablet 325 mg PO BID PRN (Reason: Pain (Scale Score 1-3)) RF: 0 guanfacine 1 mg Tablet 1 mg PO DAILY RF: 0 Stelara 90 mg/mL Syringe 90 mg SUBCUT Q4W RF: 0 famotidine 40 mg Tablet 40 mg PO DAILY RF: 0 sodium chloride [Saline Nasal Mist] 0.65 % Aerosol,[place] 2 spray INTRANASAL BID PRN (Reason: Dry Nasal Passages) RF: 0 multivitamin Tablet 1 tab PO DAILY RF: 0 ferrous sulfate 325 mg (65 mg iron) Tablet 325 mg PO BID RF: 0 mercaptopurine 50 mg Tablet 50 mg PO DAILY RF: 0 guaifenesin 100 mg/5 mL Liquid 200 mg PO Q4H PRN (Reason: Cough) RF: 0 ibuprofen 600 mg Tablet 600 mg PO Q8H PRN (Reason: joint pain) RF: 0 diphenhydramine HCl [Benadryl] 50 mg Capsule 50 mg PO Q6H PRN (Reason: Anxiety) RF: 0
--- NOTE | 2020-05-28 10:36 | PC.NURSE ---
Report received. PT ambulated to pod with steady gait. PT denies complaints. PT calm and cooperative, pleasant in conversation.
--- NOTE | 2020-05-28 10:54 | MHC.CARE ---
[facility] ED by [facility] staff after ingesting a toothpaste cap, they requested an evaluation. Met with patient in ED bed 4, although she was alert and oriented it was difficult to get accurate information from her because she was so focused on getting a different living arrangement. Patient redirected the conversation back to her wish to have a housemates, switch programs or be hospitalized somewhere she had been in the past and met friends there. Patient said that she is not intending to harm herself in any way but cannot help eating things that are not food due to her disorder and would never hurt anyone else. She was well-spoken and identified isolation and loneliness as her main issues and was able to state the obvious barriers to her changing [facility] arrangements. Call to Francisca Beltran ([phone]), assistant program director at the [facility] to gather information. She stated that patient was seen at home by [facility] a few days ago and is currently a bedsearch, they are looking for an appropriate DDS unit. N was aware that patient was heading to the ED this morning and said they would come meet with her here when referred. Behaviors noted by staff were disrupted sleep and appetite, unprovoked anger and lashing out at staff, difficult to redirect, ?almost a manic state.? Providers think that patient needs a mood stabilizer, assistant program director was going to speak to patient?s psychiatrist this morning about the symptoms. ED MD updated, referral to N made.
--- NOTE | 2020-05-28 12:57 | PC.NURSE ---
Pharmacy called this rn reguarding non-formulary medications- given Joshua Beltran at [phone] to possibly bring nonform. medications.
[2020-05-28] MEDS: polyethylene glycoL 3350 17 GM POWD.PACK 3.5 GM PO (13:00)
--- NOTE | 2020-05-28 13:36 | PC.NURSE ---
[facility] faxed and called, confirmed with lesley
[2020-05-28 18:15] VITALS: BP 165/103; PULSE 77; RESP 20; TEMP 36.5; O2SAT 99
--- NOTE | 2020-05-28 18:19 | PC.NURSE ---
Non-formulary medications dropped off, sent to pharmacy. halfway staff said denny's psychiatrist is requesting an MRI to rule out biological causes for her behavior. CT scan was completed.
[2020-05-28 19:25] LABS: COVID-19 Test Negative (Negative)
--- NOTE | 2020-05-28 20:03 | PC.NURSE ---
Report received. PT is sleeping in bed. Respirations even and unlabored. PT was just seen by N. PT is inpatient bed search.
[2020-05-28] MEDS: Ferrous Sulfate 324 MG TABLET.DR PO (21:32)
[2020-05-28] MEDS: Fluticasone Propionate Nasal 16 GM SPRAY 1 SPRAY NOSTRIL-B (21:32)
[2020-05-28] MEDS: Melatonin 3 MG TABLET PO (21:32)
[2020-05-29] VITALS (9 sets, daily range): BP systolic 153–206; BP diastolic 102–179; PULSE 83–95; RESP 16–20; O2SAT 96–98
[2020-05-29 02:35] LABS: UPreg QC Valid YES; Urine Pregnancy NEGATIVE (NEGATIVE)
[2020-05-29] MEDS: Magnesium Hydrox/Alum Hydrox 30 ML ORAL.SUSP PO (02:39)
[2020-05-29] MEDS: Acetaminophen 325 MG TABLET PO (02:39)
[2020-05-29] MEDS: Multivitamin TABLET 1 TAB PO (08:36)
[2020-05-29] MEDS: Cholecalciferol (Vitamin D3) 25 MCG TABLET 50 MCG PO (08:36)
[2020-05-29] MEDS: Calcium + Vitamin D 250 MG TABLET PO (08:36)
[2020-05-29] MEDS: Ferrous Sulfate 324 MG TABLET.DR PO ×2 (08:36→17:02)
[2020-05-29] MEDS: Famotidine 20 MG TABLET 40 MG PO (08:36)
[2020-05-29] MEDS: Folic Acid 1 MG TABLET PO (08:36)
[2020-05-29] MEDS: atenoloL 25 MG TABLET PO (08:38)
--- NOTE | 2020-05-29 08:59 | PC.NURSE ---
call placed to [facility] for dietary plans for this pt. plan is to notify kitchen and someone will come to down to plan out her meals and snacks according to the 1800 calorie diet. group art supervisor is to fax over doctors order with calorie restricted diet.
--- NOTE | 2020-05-29 09:12 | PC.NURSE ---
pt is throwing herself around in bed. screaming for over 15 minutes. security and provider at bedside. pt is triggering other patients in the pod.
--- NOTE | 2020-05-29 09:19 | PC.NURSE ---
pt given cheese stick for snack at this time. pt now calm and cooperative.
[2020-05-29] MEDS: LORazepam 2 MG/ML VIAL IM (09:40)
[2020-05-29] MEDS: Haloperidol Lactate 5 MG/ML VIAL IM (09:40)
--- NOTE | 2020-05-29 09:49 | PC.NURSE ---
0945 medication restraint initiated. pa at bedside
--- NOTE | 2020-05-29 12:37 | PC.NURSE ---
Pt up to bathroom, calm at this time. Ambulating slowly but steady on feet. Will continue to monitor.
--- NOTE | 2020-05-29 15:12 | PC.NURSE ---
Report received. Pt asleep at current. No signs of distress. Respirations even and unlabored.
--- NOTE | 2020-05-29 17:25 | PC.NURSE ---
Pt currently eating a slice of turkey, calm and cooperative, no complaints at this time.
--- NOTE | 2020-05-29 18:45 | MHC.CARE ---
CARE Team notified that pt's long-term was reaching out regarding pt's discharge. CARE Team calls Luba, activities assistant and she conferences in the director statistical programming, Maxine, and clinician, Gato, in order to discuss pt. The team identifies that they have been struggling to maintain pt's safety at the long-term over the past two weeks. They report that pt was previously on much more medication and they do not feel that medications are working at this time. They reports that outpatient psychiatrist is not willing to make medication changes without further medical workup, including MRI. The team reports that pt was previously at a behavioral school where she was doing well. They also identify that pt used to have arm splints order by her doctor, but this was discontinued. CARE Team voices concerns about having pt board in the ED for inpt bedsearch, given her special needs. CARE Team identifies that if pt is not in imminent risk to harming herself or others, she should d/c to 24hr staffed long-term for bedsearch. Team does not feel that they can keep pt safe at the long-term, fearing that she will continue to ingest foreign objects. Pts long-term team identify that in order for them to feel comfortable with her returning there, pt will need to verbalize that she will maintain safety there and not attempt to swallow things. Team also asks that an ED physician give an order for them to reinstate arm splints. They also ask for pt to be prescribed psychiatric medication by ED. CARE Team communicates to pt's long-term team that if pt does not pose imminent risk to self or others, she could be discharged from the ED to long-term at that time. CARE Team discusses this with RASHIDA Reyes. Plan is for pt to remain in the ED tonight, pending [facility] update, to be completed at approx 2030. Amy plans to order a psych consult.
[2020-05-30] VITALS (9 sets, daily range): BP systolic 139–147; BP diastolic 77–102; PULSE 74–102; RESP 17–20; TEMP 36.5–36.6; O2SAT 96–99
--- NOTE | 2020-05-30 07:13 | PC.NURSE ---
Report received from Mervin RN, pt resting, resp unlabored.
[2020-05-30] MEDS: Cholecalciferol (Vitamin D3) 25 MCG TABLET 50 MCG PO (10:01)
[2020-05-30] MEDS: Ferrous Sulfate 324 MG TABLET.DR PO ×2 (10:02→20:00)
[2020-05-30] MEDS: Calcium + Vitamin D 250 MG TABLET PO (10:02)
[2020-05-30] MEDS: Multivitamin TABLET 1 TAB PO (10:03)
[2020-05-30] MEDS: Folic Acid 1 MG TABLET PO (10:03)
[2020-05-30] MEDS: Famotidine 20 MG TABLET 40 MG PO (10:04)
[2020-05-30] MEDS: atenoloL 25 MG TABLET PO (10:04)
[2020-05-30] MEDS: polyethylene glycoL 3350 17 GM POWD.PACK 3.5 GM PO (10:10)
--- NOTE | 2020-05-30 11:15 | PC.NURSE ---
Pt awoke incontinent of large amount of urine- assisted to shower, pt cooperative w/ assistance w/ ADL and w/ medications. Pt reports she is 1:1 at her intermediate. Pt monitored for meals, then observed asking male patients about relationships, where they meet people, etc. Pt was counseled on appropriate conversations, now is on 1:1 for intrusive, sexually inappropriate conversations w/ male patients.
--- NOTE | 2020-05-30 13:08 | PM.PSYCN ---
History of Present Illness Date of Service: 05/30/2020 Chief Complaint: CHOKING ON TOOTHPASTE CAP,OBSTRUCTED PER EMS Reason for Consult: Medication eval Discussed with referring provider: No Sources of Information: patient interviewed, chart reviewed and crisis/core team assessment reviewed HPI Narrative: Patient is a 25 year old female with history of Prader-Jermaine syndrome, autism spectrum disorder and pica. Currently in area of ED awaiting psychiatric admission following crisis evaluation in the community. Per crisis evaluation, patient has been increasingly dysregulated, swallowed large toothpaste cap, impulsive and intrusive. She was recently started on Guanfacine by outpatient psychiatrist. No other psychiatric medications prescribed at this time. Patient seen in common area of ED, she as eating lunch during interview. Patient reporting she does not want to go back to her residence and wants to go to [address] , she repeated this sseveral times stating it was a once in a lifetime opportunity . Unclear what this place is that she is referring to. Patient observed to be attention seeking, reminding her one to one that she needs to be watching her at all times. Requiring redirection from nursing staff as she was demonstrating poor boundaries and overheard asking male patient about where to find a date. Required chemical restraint yesterday following outburst where she was unable to have a snack. Triggering other patient's in the ED, little to no self awareness. Review of Systems Psychiatric: Reports irritability PMFSH Medical History Acute constipation Anemia Anxiety Autistic disorder Chronic constipation Colitis Crohn's disease Developmental delay, mild Hypertension, essential Iron deficiency Mood disorder Pain of left lower extremity Pica in adults Prader-Willi syndrome PTSD (post-traumatic stress disorder) Swelling of left lower extremity Vitamin D deficiency Surgical History History of abdominal surgery History of throat surgery Diagnostics Vital Signs (24Hr): Vital Signs - 24 hr 05/29/20 13:56 05/30/20 08:00 05/30/20 10:00 Pulse Rate Respiratory Rate 16 20 20 Blood Pressure 05/30/20 10:04 Pulse Rate 102 H Respiratory Rate Blood Pressure 139/94 H Body Mass Index 39.8 Labs Labs: Laboratory Results - last 48 hr 05/28/20 05/29/20 18:54 02:21 Urine Test NEGATIVE COVID-19 ([facility]) Negative COVID-19 Clin Com See Note Imaging Radiology Impressions: ITS Impressions Head CT 05/28/20 16:22 IMPRESSION: Unremarkable noncontrast CT head. Mental Status Exam Mental Status Exam Patient Appearance: Disheveled Patient Orientation: Person, Place and Situation Level of Consciousness: Awake and Alert Patient Behavior: Talkative and Impulsive Mood Description: Labile Affect Description: Labile Ability to Follow Directions: Fair Speech Pattern: Rambling Thought Process: Illogical Thought Content: positive for [place] and positive for Perseveration Judgement: Poor Medications Medications Current Medications Generic Name Dose Route Start Last Admin Trade Name Freq PRN Reason Stop Dose Admin Acetaminophen 325 mg 05/28/20 12:36 05/29/20 02:39 Acetaminophen 325 Mg Tablet PO 325 mg BID PRN Administration Pain (Scale Score 1-3) Atenolol 25 mg 05/29/20 09:00 05/30/20 10:04 Atenolol 25 Mg Tablet PO 25 mg DAILY ELISE Administration Protocol Calcium Carbonate/Cholecalciferol 250 mg 05/29/20 09:00 05/30/20 10:02 Calcium + Vitamin D 250 Mg Tablet PO 250 mg DAILY ELISE Administration Diphenhydramine HCl 50 mg 05/28/20 12:36 Diphenhydramine Hcl 25 Mg Tablet PO Q6H PRN Anxiety Famotidine 40 mg 05/29/20 09:00 05/30/20 10:04 Famotidine 20 Mg Tablet PO 40 mg DAILY ELISE Administration Ferrous Sulfate 324 mg 05/28/20 21:00 05/30/20 10:02 Ferrous Sulfate 324 Mg Tablet. PO 324 mg BID ELISE Administration Fluticasone Propionate 1 spray 05/28/20 21:00 05/29/20 20:33 Fluticasone Propionate Nasal 16 Gm [place] NOSTRIL-B Not Given BEDTIME ELISE Folic Acid 1 mg 05/29/20 09:00 05/30/20 10:03 Folic Acid 1 Mg Tablet PO 1 mg DAILY ELISE Administration Guaifenesin 5 ml 05/28/20 12:36 Guaifenesin 100 Mg/5 Ml Liquid PO Q4H PRN Cough Ibuprofen 600 mg 05/28/20 12:36 Ibuprofen 600 Mg Tablet PO Q8H PRN joint pain Lorazepam 2 mg 05/30/20 08:32 Lorazepam 1 Mg Tablet PO Q6H PRN anxiety Melatonin 3 mg 05/28/20 21:00 05/29/20 20:32 Melatonin 3 Mg Tablet PO Not Given BEDTIME ELISE Multivitamins/Vitamin C 1 tab 05/29/20 09:00 05/30/20 10:03 Multivitamin Tablet PO 1 tab DAILY ELISE Administration Non-Formulary Medication 1 mg 05/29/20 09:00 05/30/20 10:07 Guanfacine PO 1 mg DAILY ELISE Administration Non-Formulary Medication 1 appl 05/28/20 12:36 Menthol-Zinc Oxide [Calmoseptine] TOPICAL TID PRN Rash Non-Formulary Medication 50 mg 05/29/20 09:00 05/30/20 10:06 Mercaptopurine PO 50 mg DAILY ELISE Administration Non-Formulary Medication 1 cap 05/28/20 15:00 05/30/20 10:06 [place] 3-Vpf-Yza-Fish Oil PO 1 cap TID ELISE Administration Non-Formulary Medication 90 mg 05/28/20 12:45 Ustekinumab SUBCUT Q4W ELISE Polyethylene Glycol 3.5 gm 05/28/20 12:45 05/30/20 10:10 Polyethylene Glycol 3350 17 Gm Powd.Pack PO 3.5 gm DAILY ELISE Administration Sodium Chloride 2 spray 05/28/20 12:36 Sodium Chloride 0.65 % Nasal 44 Ml Sprbtl NOSTRIL-B BID PRN Dry Nasal Passages Vitamin D 50 mcg 05/29/20 09:00 05/30/20 10:01 Cholecalciferol (Vitamin D3) 25 Mcg Tablet PO 50 mcg DAILY ELISE Administration Allergies Allergies Allergy/AdvReac Type Severity Reaction Status Date / Time silver Allergy Unknown RASH Verified 03/12/20 11:04 [From TEGADERM AG MESH] transparent dressing Allergy Unknown skin Verified 03/12/20 11:04 irritation sensitivity haloperidol [From HALDOL] AdvReac Intermediate UNKNOWN Verified 03/12/20 11:04 Tegaderm CHG dressing: Allergy Unknown skin Uncoded 02/12/20 11:40 irritation Haldol AdvReac Unknown paradoxical Uncoded 05/29/20 13:40 effect Assessment & Plan Assessment & Plan (1) Prader-Willi syndrome: Status: Acute Code(s): Q87.11 - Prader-Willi syndrome Recommendations: Per crisis evaluation, patient has a guardian. The following medication recommendatios should be discussed with her D/C Guanfacine Consider low dose risperdal (0.5mg BiD) Greater than 50% of the session was spent on counseling and/or coordination of care
--- NOTE | 2020-05-30 13:11 | PC.NURSE ---
Deejay Mathur in to evaluate.
[2020-05-30] MEDS: LORazepam 1 MG TABLET 2 MG PO (15:15)
--- NOTE | 2020-05-30 15:48 | PC.NURSE ---
Pt agitated at times, care team contacyted, pt medicated w/ ativan for agitation.
--- NOTE | 2020-05-30 16:50 | PC.NURSE ---
Pt awake, sitting on bed, cooperative w/ limits at this time.
--- NOTE | 2020-05-30 17:31 | PC.NURSE ---
[facility] Well Logger: [phone]. Per Care team, [facility] agrees to send staff to be with pt days/evenings.
--- NOTE | 2020-05-30 17:39 | PC.NURSE ---
custodial staff in to sit w/ pt.
--- NOTE | 2020-05-30 18:10 | MHC.CARE ---
CARE Team speaks with asst Luba director of pt's [phone]. Luba reports that continues to feel uncomfortable taking her back, however, they do agree to provide staffing to pt while she is at the ED. senior living staff will be with pt from 9AM-3PM, and then 3PM-11PM until she is either placed on inpt psych unit or is d/c back to skilled nursing. Luba asks to speak with pt, and CARE Team supports pt in making this phone call. Luba identifies that many changes will be made at skilled nursing and when pt returns there, the environment will be much more restrictive due to unsafe behaviors. Pt appears to engage well in phone call and is pleased to see her skilled nursing staff arrive to the pod.
--- NOTE | 2020-05-30 18:33 | PC.NURSE ---
Pt w/ staff from correction, playing cards in common area. Affect even, pt in behavioral control, Jelani Morales aware of psych consult recommendations for medications.
[2020-05-30] MEDS: risperiDONE 0.5 MG TABLET PO (19:59)
[2020-05-30] MEDS: Fluticasone Propionate Nasal 16 GM SPRAY 1 SPRAY NOSTRIL-B (20:00)
[2020-05-30] MEDS: Melatonin 3 MG TABLET PO (20:00)
[2020-05-31] VITALS (7 sets, daily range): BP systolic 150–151; BP diastolic 93–106; PULSE 83–99; RESP 18–20; TEMP 36.6–36.7; O2SAT 95–96
--- NOTE | 2020-05-31 07:11 | PC.NURSE ---
Report received from AMADOR Jeffries. Pt resting, resp unlabored.
--- NOTE | 2020-05-31 09:02 | PC.NURSE ---
Pt showered, pointed out a small amount of red mucous on shower floor which she reported she 'vomited'- pt denies pain, denies any attempt to harm herself, or swallow anything. Denies pain. No other symptom reported. Staff from [facility] in w/ pt.
[2020-05-31] MEDS: atenoloL 25 MG TABLET PO (09:09)
[2020-05-31] MEDS: Cholecalciferol (Vitamin D3) 25 MCG TABLET 50 MCG PO (09:10)
[2020-05-31] MEDS: Calcium + Vitamin D 250 MG TABLET PO (09:10)
[2020-05-31] MEDS: Multivitamin TABLET 1 TAB PO (09:11)
[2020-05-31] MEDS: Famotidine 20 MG TABLET 40 MG PO (09:11)
[2020-05-31] MEDS: Folic Acid 1 MG TABLET PO (09:13)
[2020-05-31] MEDS: Ferrous Sulfate 324 MG TABLET.DR PO ×2 (09:13→20:03)
[2020-05-31] MEDS: polyethylene glycoL 3350 17 GM POWD.PACK 3.5 GM PO (09:14)
[2020-05-31] MEDS: risperiDONE 0.5 MG TABLET PO ×2 (09:44→20:04)
--- NOTE | 2020-05-31 10:54 | PC.NURSE ---
Staff member and BHN currently w/ pt. Pt cooperative w/ staff, showered this morning, follows dietary schedule as set by long-term. Shoshana Parsons aware of sanguineous spit this am- no further episode.
--- NOTE | 2020-05-31 11:04 | PC.NURSE ---
Late entry: vital signs/BP reviewed w/ K Issa.
[2020-05-31] MEDS: Acetaminophen 325 MG TABLET PO (11:09)
[2020-05-31] MEDS: diphenhydrAMINE HCL 25 MG TABLET 50 MG PO (11:09)
--- NOTE | 2020-05-31 11:13 | PC.NURSE ---
pt became very agitated when BHN in to see her- continues to be adamant that she is and will be, lonely at the intermediate. Pt w/ 1:1 staff from intermediate playing cards, given tylenol for report of a headache and benadryl for anxiety.
--- NOTE | 2020-05-31 12:10 | PC.NURSE ---
Pt w/ group staff member, playing cards. Reports headache remains, but appears less anxious, conversing w/ staff member.
--- NOTE | 2020-05-31 15:56 | PC.NURSE ---
late entry;1445: pt resting, resp unlabored. Staff member from correction at bedside.
--- NOTE | 2020-05-31 18:26 | PC.NURSE ---
[facility] staff present at bedside. Pt sitting in bed and eating dinner at current. Calm and cooperative.
--- NOTE | 2020-05-31 19:05 | PC.NURSE ---
Report received. PT is playing cards with a member of her [facility] staff. Calm and cooperative. PT is inpatient bed search.
[2020-05-31] MEDS: Melatonin 3 MG TABLET PO (20:03)
[2020-05-31] MEDS: Fluticasone Propionate Nasal 16 GM SPRAY 1 SPRAY NOSTRIL-B (20:05)
[2020-06-01 00:48] VITALS: RESP 17
[2020-06-01 06:21] VITALS: BP 120/91; PULSE 77; RESP 16; TEMP 36.9; O2SAT 98
--- NOTE | 2020-06-01 06:54 | PC.NURSE ---
Report received. PT currently sleeping, respirations even and unlabored, in no apparent distress. Pt is inpatient bedsearch.
[2020-06-01 08:42] VITALS: BP 148/98; PULSE 84; RESP 18; TEMP 36.6; O2SAT 93
[2020-06-01] MEDS: polyethylene glycoL 3350 17 GM POWD.PACK 3.5 GM PO (08:58)
[2020-06-01 09:00] VITALS: BP 148/98; PULSE 84
[2020-06-01] MEDS: Famotidine 20 MG TABLET 40 MG PO (09:00)
[2020-06-01] MEDS: Folic Acid 1 MG TABLET PO (09:00)
[2020-06-01] MEDS: atenoloL 25 MG TABLET PO (09:00)
[2020-06-01] MEDS: Calcium + Vitamin D 250 MG TABLET PO (09:00)
[2020-06-01] MEDS: Multivitamin TABLET 1 TAB PO (09:00)
[2020-06-01] MEDS: Cholecalciferol (Vitamin D3) 25 MCG TABLET 50 MCG PO (09:01)
[2020-06-01] MEDS: risperiDONE 0.5 MG TABLET PO ×2 (09:01→20:40)
[2020-06-01] MEDS: Ferrous Sulfate 324 MG TABLET.DR PO ×2 (09:01→20:40)
--- NOTE | 2020-06-01 10:57 | PC.NURSE ---
Report received. Pt meeting with [facility] for MSU at current. Calm and cooperative.
--- NOTE | 2020-06-01 12:56 | PC.NURSE ---
Playing cards with retirement staff. Calm and cooperative. No complaints at this time.
--- NOTE | 2020-06-01 15:06 | PC.NURSE ---
Pt standing at RN station, talking with [facility] and RN. Waiting for prison staff to arrive. Calm and cooperative. No complaints at this time.
--- NOTE | 2020-06-01 15:29 | PC.NURSE ---
Voice message left for [facility] intermediate asst. director. Pt is currently out of fish oil, and needs more delivered.
--- NOTE | 2020-06-01 16:55 | PC.NURSE ---
Pt resting at bed, conversing with [facility] staff, calm and cooperative.
[2020-06-01] MEDS: Acetaminophen 325 MG TABLET PO (16:57)
--- NOTE | 2020-06-01 18:43 | PC.NURSE ---
assisted staff at bedside. Pt sleeping at current. No signs of distress. Respirations even and unlabored.
[2020-06-01 20:00] VITALS: RESP 18
[2020-06-01] MEDS: Melatonin 3 MG TABLET PO (20:40)
[2020-06-01] MEDS: Fluticasone Propionate Nasal 16 GM SPRAY 1 SPRAY NOSTRIL-B (20:40)
--- NOTE | 2020-06-01 20:59 | PC.NURSE ---
pt melaton fell on the floor as pt was putting it in her mouth, wasted and another one given and swallowed with no difficutly.
--- NOTE | 2020-06-01 23:21 | PC.NURSE ---
pt staff sitter has left and no replacement sent. pt is sleeping room checked for any objects the pt can injest and is free of all.
[2020-06-02 06:00] VITALS: BP 125/56; PULSE 78; RESP 18; TEMP 36.5; O2SAT 98
--- NOTE | 2020-06-02 07:03 | PC.NURSE ---
Report received. PT currently resting, calm and cooperative. PT is inpatient bedsearch.
[2020-06-02 09:14] VITALS: BP 131/86; PULSE 78
[2020-06-02] MEDS: Cholecalciferol (Vitamin D3) 25 MCG TABLET 50 MCG PO (09:14)
[2020-06-02] MEDS: risperiDONE 0.5 MG TABLET PO ×2 (09:14→20:57)
[2020-06-02] MEDS: Calcium + Vitamin D 250 MG TABLET PO (09:14)
[2020-06-02] MEDS: Multivitamin TABLET 1 TAB PO (09:14)
[2020-06-02] MEDS: Ferrous Sulfate 324 MG TABLET.DR PO ×2 (09:14→20:58)
[2020-06-02] MEDS: atenoloL 25 MG TABLET PO (09:14)
[2020-06-02] MEDS: Famotidine 20 MG TABLET 40 MG PO (09:15)
[2020-06-02] MEDS: Folic Acid 1 MG TABLET PO (09:15)
[2020-06-02] MEDS: polyethylene glycoL 3350 17 GM POWD.PACK 3.5 GM PO (09:15)
[2020-06-02 09:17] VITALS: BP 131/86; PULSE 96; RESP 17; TEMP 37.1; O2SAT 98
[2020-06-02] MEDS: Acetaminophen 325 MG TABLET PO ×2 (09:22→18:15)
[2020-06-02 16:02] LABS: COVID-19 Test Negative (Negative)
[2020-06-02 18:16] VITALS: BP 121/82; PULSE 79; RESP 18; TEMP 36.7; O2SAT 98
[2020-06-02] MEDS: Melatonin 3 MG TABLET PO (20:57)
[2020-06-02] MEDS: Fluticasone Propionate Nasal 16 GM SPRAY 1 SPRAY NOSTRIL-B (20:57)
[2020-06-03 06:24] VITALS: BP 133/80; PULSE 80; RESP 16; O2SAT 98
--- NOTE | 2020-06-03 06:42 | PC.NURSE ---
monitored through out overnight. no issues. pt behavior escalated when denied food at 1900, pt verbally redirected. slept through out night.
--- NOTE | 2020-06-03 07:30 | PC.NURSE ---
Report received from AMADOR Sandra. Pt agitated on arrival, yelling about breakfast, pt unable to console herself, given direction but having difficulty regaining behavioral control.
[2020-06-03 08:08] VITALS: BP 143/103; PULSE 88; RESP 20; TEMP 36.3; O2SAT 98
--- NOTE | 2020-06-03 08:09 | PC.NURSE ---
Pt in behavioral control at this time. Ate breakfast, currently resting in room.
[2020-06-03 08:36] VITALS: BP 143/103; PULSE 88
[2020-06-03] MEDS: Famotidine 20 MG TABLET 40 MG PO (08:36)
[2020-06-03] MEDS: atenoloL 25 MG TABLET PO (08:36)
[2020-06-03] MEDS: risperiDONE 0.5 MG TABLET PO ×2 (08:37→20:01)
[2020-06-03] MEDS: Folic Acid 1 MG TABLET PO (08:37)
[2020-06-03] MEDS: Ferrous Sulfate 324 MG TABLET.DR PO ×2 (08:37→20:01)
[2020-06-03] MEDS: Multivitamin TABLET 1 TAB PO (08:38)
[2020-06-03] MEDS: Calcium + Vitamin D 250 MG TABLET PO (08:38)
[2020-06-03] MEDS: Cholecalciferol (Vitamin D3) 25 MCG TABLET 50 MCG PO (08:39)
[2020-06-03] MEDS: polyethylene glycoL 3350 17 GM POWD.PACK 3.5 GM PO (08:40)
[2020-06-03] MEDS: Acetaminophen 325 MG TABLET PO (08:45)
--- NOTE | 2020-06-03 09:37 | PC.NURSE ---
Pt overheard staff offer cheeseburger and fries to another pt and became agitated, demanding the same. Pt offered other options, but became increasingly agitated. care home staff in with pt at this time. Pt appears to be increasingly irritable, focused on food. CARE team aware pt has been in ED since last week. Staff in contact w/ [facility], advocating for return to [facility].
--- NOTE | 2020-06-03 10:04 | MHC.CARE ---
CARE team contacted pts c/o Luba due to POD and ED looking for clarity about pts plan and if she can return to . Luba described that she felt they could not keep pt safe and felt that pt needed her meds adjusted due to her impulse to ingest . She further described that pt has been acting out behaviorally. T/w inquired about 1:1 at the home and they reported that she is already on 1:1 status there. T/w asked whom can make the decision for pts care and return at the home and she stated she would have to speak with her boss and call CARE team back. T/w reached out to [facility] regarding this case and they stated that pt is currently IPLOC and her mental status update on 06/01/20 at 10am continued to meet IPLOC. The next MSU will be today and planned to send staff around 12noon.
--- NOTE | 2020-06-03 10:17 | PC.NURSE ---
Pt declined benadryl, continued to be agitated, focused on the cheeseburger, having difficulty regaining self- control. Pt shouting and crying for several minutes, then slowly stopped, and is currently resting. Jonathan called, spoke w/ orange picking supervisor Jaky to request an early evaluation if possible.
--- NOTE | 2020-06-03 11:01 | PC.NURSE ---
Pt resting, resp unlabored. Staff from alf in w/ pt. BHN called, will try to re-assess this morning.
--- NOTE | 2020-06-03 13:51 | PC.NURSE ---
Late entry 1300: Director of program Genoveva in to evaluate, stayed w/ pt. Genoveva aware of pt current behaviors, and concerns re: length of stay, diet adherence, lack of structure such as she had in the [facility] setting. Currently, pt in behavioral control, affect brighter, ate lunch without concerns, - in common area speaking to BHWilliams Parsons aware of conversations w/ director, and currently w/ CARMENN.
[2020-06-03 14:00] VITALS: RESP 20
--- NOTE | 2020-06-03 14:18 | PC.NURSE ---
Pt with 1:1 from fpc, in behavioral control, engaging appropriately w/ staff, awaiting dispo.
--- NOTE | 2020-06-03 15:13 | PC.NURSE ---
Per [facility]- pt no longer meets inpatient level of care, pt is being discharged from [facility] service. Luba (custodialteacher home therapy) called- state that they will not accept her back tonight, they plan on having a meeting w/ DDS tomorrow. Kishore Oliveira aware. Pt is currently upset, because she thought she was returning to the custodial.
--- NOTE | 2020-06-03 15:45 | MHC.CM.ED ---
Received notification from [facility] that correction is not willing to take patient home today. Telephone conference with director of the correction Ana Colón Jessica and T/W. Patient has been cleared for discharge by Stacie from [facility]. Katarzyna is refusing to take patient back tonight, stating they can't keep her safe. Katarzyna wants to make sure there are plans in place to protect patient, even though she has been a resident of the group prior to coming to the ER. Telephone conference is arranged for tomorrow, 06/04 at 10am. Per Katarzyna, DDS will also be on the phone. Anticipate patient will remain in the ER overnight, and discharged back to correction tomorrow. Continue to monitor for d/c needs.
--- NOTE | 2020-06-03 15:48 | PC.NURSE ---
Pt continues to be upset, confused regarding returning home or not. Loud at times, but staying in room. Staff 1:1 with pt.
--- NOTE | 2020-06-03 15:55 | PC.NURSE ---
Pt able to regain behavioral control. Pt currently sitting on bed, quiet. longterm staff w/ pt.
[2020-06-03 16:00] VITALS: BP 130/95; PULSE 75; RESP 16; TEMP 36.6; O2SAT 99
--- NOTE | 2020-06-03 16:40 | PC.NURSE ---
[facility] administrators: Luba [phone]; Genoveva [phone]
--- NOTE | 2020-06-03 18:07 | PC.NURSE ---
Pt out in common area, playing cards, now eating. Pt affect bright, pt cooperative with care, no concerns reported. care home staff w/ pt.
[2020-06-03] MEDS: diphenhydrAMINE HCL 25 MG TABLET 50 MG PO (19:14)
[2020-06-03] MEDS: Ibuprofen 600 MG TABLET PO (19:14)
[2020-06-03] MEDS: Melatonin 3 MG TABLET PO (20:01)
[2020-06-03] MEDS: Fluticasone Propionate Nasal 16 GM SPRAY 1 SPRAY NOSTRIL-B (20:03)
--- NOTE | 2020-06-03 20:30 | PC.NURSE ---
Patient was in milieu playing card with intermediate staff, compliant with her HS PO medication, snacked and refreshed well with fluid, currently in bed appears sleeping, will continue to monitor.
[2020-06-03 22:00] VITALS: RESP 16
--- NOTE | 2020-06-03 22:23 | PC.NURSE ---
patient refused vitals ,rn aware.
[2020-06-04 06:23] VITALS: BP 121/69; PULSE 96; RESP 16; TEMP 36.6; O2SAT 95
--- NOTE | 2020-06-04 07:12 | PC.NURSE ---
Report received from AMADOR Jeffries. Pt resting, resp unlabored.
[2020-06-04 09:11] VITALS: BP 139/83; PULSE 94; RESP 20; TEMP 36.8; O2SAT 95
[2020-06-04] MEDS: Cholecalciferol (Vitamin D3) 25 MCG TABLET 50 MCG PO (09:16)
[2020-06-04] MEDS: Ferrous Sulfate 324 MG TABLET.DR PO (09:16)
[2020-06-04] MEDS: risperiDONE 0.5 MG TABLET PO (09:16)
[2020-06-04 09:17] VITALS: BP 139/83; PULSE 94
[2020-06-04] MEDS: atenoloL 25 MG TABLET PO (09:17)
[2020-06-04] MEDS: Multivitamin TABLET 1 TAB PO (09:17)
[2020-06-04] MEDS: Folic Acid 1 MG TABLET PO (09:17)
[2020-06-04] MEDS: Famotidine 20 MG TABLET 40 MG PO (09:18)
[2020-06-04] MEDS: Calcium + Vitamin D 250 MG TABLET PO (09:18)
[2020-06-04] MEDS: polyethylene glycoL 3350 17 GM POWD.PACK 3.5 GM PO (09:30)
--- NOTE | 2020-06-04 10:54 | PC.NURSE ---
Pt awake, alert, cooperative w/ care. Staff from assisted in. Per provider, pt may be discharged. Two staff in from assisted to transport pt back to assisted. Pt appears very pleased at the news, affect bright, joking w/ staff. No concerns reported.
--- NOTE | 2020-06-04 11:46 | MHC.CM.ED ---
Late entry from 06/04/2020 at 1030am: Telephone conference with Maxine from long-term, Ellen from [facility], Dr Palmer clinician at long-term, Minoo Finley, Ana Salgado, Mary Shaw and T/Nikko Goodman requesting N be involved in call. It was explained patient was cleared by N yesterday and they would have to reach out to them to arrange a meeting with their agency. Per Dr Palmer, patient can return to the long-term if a prescription of Risperdal is sent to patient's pharmacy for 30 day supply. Manny, CLINICAL LEADER aware and will be ordered at d/c. 2 long-term staff members are present and will transport patient home.
== END 2020-06-04 11:02 | disposition home or self-care (01) ==
PROVIDERS: Physician Assistant; Emergency Provider Emergency Medicine; PCP Internal Medicine
DX: T17.290A Other foreign object in pharynx causing asphyxiation, initial encounter (principal); Z20.822 Contact with and (suspected) exposure to COVID-19; X83.8XXA Intentional self-harm by other specified means, initial encounter; Y93.E1 Activity, personal bathing and showering; Y92.041 Bathroom in boarding-house as the place of occurrence of the external cause; Y99.9 Unspecified external cause status; Q87.11 Prader-Willi syndrome; F50.89 Other specified eating disorder; F84.0 Autistic disorder; F41.9 Anxiety disorder, unspecified; F43.10 Post-traumatic stress disorder, unspecified; I10 Essential (primary) hypertension; D64.9 Anemia, unspecified
CPT/HCPCS: 36415; 42809; 70450; 81025; 87635; 96372; 99282; 99285; 99291; J2060; Q0163

== ENCOUNTER 2020-09-17 15:45 | Emergency (ER) | payer MEDICARE, MEDICAID, SELFPAY ==
--- NOTE | ~2020-09-17 | XR_ITS ---
EXAMINATION: XR SOFT TISSUE NECK CLINICAL INDICATION: Swallowed foreign body. COMPARISON: None TECHNIQUE: 2 views of the soft tissue neck were obtained. FINDINGS: Metallic foreign body at the oropharynx just cephalad to the epiglottis. There is a metallic large paper clip. No prevertebral soft tissue swelling. Lung apices normally aerated. XR/XR soft tissue neck IMPRESSION: Swallowed metallic foreign body in the oropharynx.
[2020-09-17 15:52] VITALS: BP 110/76; PULSE 76
--- NOTE | 2020-09-17 16:02 | ED_ITS ---
HPI - General Adult General Chief complaint: General Medical Stated complaint: swallowed paper clip Time Seen by Provider: 09/17/20 16:02 Source: patient and EMS Mode of arrival: EMS Limitations: no limitations History of Present Illness HPI narrative: ingested office style paper clip at 3pm due to her PICA, last ate at noon today, prior multiple history of the same in past MD complaint: FB ingestion Onset (ago): hour(s) (3pm today) Location: mouth Radiation: non-radiation Severity: moderate Quality: aching Pain Consistency: intermittent Relieving factors: none Exacerbating factors: none Associated symptoms: denies other symptoms Treatments prior to arrival: none Related Data Home Medications Medication Instructions Recorded Confirmed Calmoseptine 1 applic TOPICAL TID PRN 02/20/20 07/05/20 Stelara 90 mg SUBCUT Q4W 02/20/20 07/05/20 acetaminophen 325 mg PO BID PRN 02/20/20 07/05/20 calcium citrate-vitamin D3 1 tab PO DAILY 02/20/20 07/05/20 [Calcium Citrate + D] famotidine 40 mg PO DAILY 02/20/20 07/05/20 ferrous sulfate 325 mg PO BID 02/20/20 07/05/20 guaifenesin 200 mg PO Q4H PRN 02/20/20 07/05/20 ibuprofen 600 mg PO Q8H PRN 02/20/20 07/05/20 mercaptopurine 50 mg PO DAILY 02/20/20 07/05/20 multivitamin 1 tab PO DAILY 02/20/20 07/05/20 sodium chloride [Saline Nasal Mist] 2 spray INTRANASAL BID PRN 02/20/20 07/05/20 Previous Rx's Medication Instructions Recorded polyethylene glycol 3350 17 3.5 g PO QAM #510 g 02/26/20 gram/dose oral powder folic acid 1 mg tablet 1 mg PO DAILY 90 Days #90 tab 04/01/20 atenolol 25 mg tablet 25 mg PO DAILY 90 Days #90 tab 06/03/20 risperidone [Risperdal] 0.5 mg PO BID 30 Days #60 tab 06/04/20 cholecalciferol (vitamin D3) 50 50 mcg PO DAILY 90 Days #90 tab 06/12/20 mcg (2,000 unit) tablet melatonin 3 mg tablet 3 mg PO BEDTIME #28 tab 07/02/20 bacitracin 500 unit/gram topical 1 appl TOPICAL TID #14 g 07/11/20 ointment cephalexin 500 mg capsule 500 mg PO QID 7 Days #28 cap 07/11/20 sulfamethoxazole 800 1 tab PO Q12H 7 Days #14 tab 07/11/20 mg-trimethoprim 160 mg tablet omega 6-cql-jna-fish oil 300 1 cap PO TID 90 Days #270 cap 07/12/20 mg-1,000 mg capsule fluticasone propionate 50 1 spray INTRANASAL BEDTIME 30 Days 07/30/20 mcg/actuation nasal #16 g spray,suspension Allergies Allergy/AdvReac Type Severity Reaction Status Date / Time silver Allergy Unknown RASH Verified 03/12/20 11:04 [From TEGADERM AG MESH] transparent dressing Allergy Unknown skin Verified 03/12/20 11:04 irritation sensitivity haloperidol [From HALDOL] AdvReac Intermediate UNKNOWN Verified 03/12/20 11:04 Tegaderm CHG dressing: Allergy Unknown skin Uncoded 02/12/20 11:40 irritation Haldol AdvReac Unknown paradoxical Uncoded 05/29/20 13:40 effect Review of Systems Review of Systems: Constitutional : No Weight loss, No Fever, No Chills, No Fatigue, No Malaise ENT/Mouth : pos sore throat, No Rhinorrhea Eyes: No Eye Pain, No Swelling, No Redness Cardiovascular : No Chest Pain, No SOB Respiratory : No Cough, No Sputum, No Wheezing Gastrointestinal : No Nausea, No Vomiting, No Diarrhea, No abdominal Pain Genitourinary : No Dysuria, No Urinary Frequency, No Hematuria, Musculoskeletal : No joint pain, No Myalgias, No Joint Swelling Skin : No Skin Lesions, No rash Neuro : No Weakness, No Numbness, No Dizziness, No Headache Psych : pos Anxiety/Panic, No Depression All other systems reviewed and are negative [facility] Past Medical History Attestation statement: The following information was validated with the patient. Medical History Acute constipation Anemia Anxiety Autistic disorder Chronic constipation Colitis Crohn's disease Developmental delay, mild Hypertension, essential Iron deficiency Mood disorder Pain of left lower extremity Pica in adults Prader-Willi syndrome PTSD (post-traumatic stress disorder) Swelling of left lower extremity Vitamin D deficiency Surgical History History of abdominal surgery History of throat surgery Family History Family History Father No problems noted. Mother No problems noted. Social History Social History Household Members: Other Housing: Other Do you presently have visiting nurse or other home services: Yes Alcohol intake: never Advance Directives: No Advance Directives Information Provided: Yes Patient : No service: No Current occupational status: disabled Physical Exam Vital Signs: Vital Signs: Last Vital Signs Temp 97.7 F 09/17/20 16:09 Pulse 66 09/17/20 16:09 Resp 18 09/17/20 16:09 BP 107/86 09/17/20 16:09 Pulse Ox 94 09/17/20 16:09 Body Mass Index 38.0 Appearance: Alert. Oriented X3. Anxious mild acute distress. Eyes: Pupils equal, round and reactive to light. ENT: Pharynx slightly muffled voice, no stridor, she is able to tolerate some secretion, I cannot visualize the FB on exam with light and tongue depressor, scant streaked saliva noted on tissue paper, no hemorrhage noted at this time Neck: Normal inspection. Neck supple. CVS: Normal heart rate and rhythm. Pulses normal. Respiratory: No respiratory distress. Breath sounds normal. Abdomen: Soft and non-tender. Skin: Skin warm and dry. Normal skin color. Normal skin turgor. Extremities: No lower extremity edema. No calf ttp Neuro: Oriented X 3. No motor deficit. No sensory deficit. Course Course Course Narrative: 430pm - Dr. Carcamo production officer for GI declines procedure states ENT needs to see the patient call to transfer line at [facility] 433pm discussed with ENT Dr. Cosby transfer to the ED 457pm Medical Decision Making MDM Narrative Medical decision making narrative: 25 yo female with hx of pica, HTN, prader- willi syndrome with chronic presentation of ingestions last ate at noon today, ingested the office style paper clip (black clip/metal) at 3pm, abdomen is benign, no crepitus on neck, airway intact at the moment, likely transfer to [facility] for ENT though I will run it by GI here for possible removal. Lab Data Result diagrams: 09/17/20 16:59 09/17/20 16:59 Labs: Lab Results 09/17/20 09/17/20 09/17/20 Range/Units 16:47 16:59 16:59 WBC 6.9 (4.8-10.8) X10*3/uL RBC 4.82 (4.20-5.50) X10*6/uL Hgb 13.9 (12.0-16.0) g/dl Hct 43.1 (37-47) % MCV 89.4 (80-98) fL MCH 28.8 (27.0-33.0) pg MCHC 32.3 (31.0-35.0) g/dl RDW 14.1 (11.0-16.0) % Plt Count 229 D (160-400) X10*3/uL MPV 10.7 (9.4-12.3) fL Immature Gran % (Auto) 0.4 (0.0-0.4) % Neut % (Auto) 67.9 (45-73) % Lymph % (Auto) 21.2 (20-40) % [place] % (Auto) 7.8 (2-11) % Eos % (Auto) 2.3 (0-4) % Baso % (Auto) 0.4 (0-2) % Lymph # (Auto) 1.5 (1.2-4.9) X10*3/uL [place] # (Auto) 0.5 (0.1-1.2) X10*3/uL Eos # (Auto) 0.2 (0.0-0.4) X10*3/uL Baso # (Auto) 0.0 (0.0-0.2) X10*3/uL Abs Immat Gran (auto) 0.03 (0.00-0.03) X10*3/uL Absolute Neuts (auto) 4.7 (2.0-8.3) X10*3/uL Absolute Nucleated RBC 0.000 (0.0-0.012) X10*3/uL Nucleated RBC % (auto) 0.0 (0.0-0.2) /100WBC PT 11.2 (10.8-13.0) SEC INR 0.9 (0.9-1.1) APTT 40.6 H (24.1-38.0) SEC Sodium (135-145) mmol/L Potassium (3.3-5.1) mmol/L Chloride (96-108) mmol/L Carbon Dioxide (22-29) mmol/L Anion Gap (12-20) BUN (9-16) mg/dL Creatinine (0.5-1.4) mg/dL Estim Creat Clear Calc Estimated GFR Random Glucose (60-115) mg/dL Calcium (8.4-10.2) mg/dL COVID-19 (TACOS) Negative (Negative) COVID-19 Clin Com See Note 09/17/20 Range/Units 16:59 WBC (4.8-10.8) X10*3/uL RBC (4.20-5.50) X10*6/uL Hgb (12.0-16.0) g/dl Hct (37-47) % MCV (80-98) fL MCH (27.0-33.0) pg MCHC (31.0-35.0) g/dl RDW (11.0-16.0) % Plt Count (160-400) X10*3/uL MPV (9.4-12.3) fL Immature Gran % (Auto) (0.0-0.4) % Neut % (Auto) (45-73) % Lymph % (Auto) (20-40) % [place] % (Auto) (2-11) % Eos % (Auto) (0-4) % Baso % (Auto) (0-2) % Lymph # (Auto) (1.2-4.9) X10*3/uL [place] # (Auto) (0.1-1.2) X10*3/uL Eos # (Auto) (0.0-0.4) X10*3/uL Baso # (Auto) (0.0-0.2) X10*3/uL Abs Immat Gran (auto) (0.00-0.03) X10*3/uL Absolute Neuts (auto) (2.0-8.3) X10*3/uL Absolute Nucleated RBC (0.0-0.012) X10*3/uL Nucleated RBC % (auto) (0.0-0.2) /100WBC PT (10.8-13.0) SEC INR (0.9-1.1) APTT (24.1-38.0) SEC Sodium 144 (135-145) mmol/L Potassium 4.4 (3.3-5.1) mmol/L Chloride 103 (96-108) mmol/L Carbon Dioxide 31 H (22-29) mmol/L Anion Gap 14 (12-20) BUN 27 H (9-16) mg/dL Creatinine 1.09 (0.5-1.4) mg/dL Estim Creat Clear Calc 78.0 Estimated GFR > 60 Random Glucose 97 (60-115) mg/dL Calcium 10.1 D (8.4-10.2) mg/dL COVID-19 (TACOS) (Negative) COVID-19 Clin Com Critical Care Time Critical Care Time Critical Care Time: Yes Total Critical Care Time: 35 Attestation: review of records, discussion with staff paint supervisor of her living situation, medical consult and transfer to tertiary center I attest to this time spent taking care of the patient Discharge Plan Discharge Clinical Impression: Foreign body Patient Disposition: Xfer [facility] Transfer Details: [employer] [facility] Prescriptions: No Action polyethylene glycol 3350 17 gram/dose powder 3.5 g PO QAM Qty: 510 RF: 11 folic acid 1 mg tablet 1 mg PO DAILY 90 Days Qty: 90 RF: 3 atenolol 25 mg tablet 25 mg PO DAILY 90 Days Qty: 90 RF: 0 cholecalciferol (vitamin D3) [Vitamin D3] 50 mcg (2,000 unit) tablet 50 mcg PO DAILY 90 Days Qty: 90 RF: 3 melatonin 3 mg tablet 3 mg PO BEDTIME Qty: 28 RF: 5 omega 7-nev-eqd-fish oil 300-1,000 mg capsule 1 cap PO TID 90 Days Qty: 270 RF: 3 fluticasone propionate 50 mcg/actuation spray,suspension 1 spray intranasal BEDTIME 30 Days Qty: 16 RF: 5 calcium citrate-vitamin D3 [Calcium Citrate + D] 315 mg-5 mcg (200 unit) Tablet 1 tab PO DAILY RF: 0 Calmoseptine 0.44-20.6 % Ointment 1 applic TOPICAL TID PRN (Reason: Rash) RF: 0 acetaminophen 325 mg Tablet 325 mg PO BID PRN (Reason: Pain (Scale Score 1-3)) RF: 0 Stelara 90 mg/mL Syringe 90 mg SUBCUT Q4W RF: 0 famotidine 40 mg Tablet 40 mg PO DAILY RF: 0 sodium chloride [Saline Nasal Mist] 0.65 % Aerosol,[place] 2 spray INTRANASAL BID PRN (Reason: Dry Nasal Passages) RF: 0 multivitamin Tablet 1 tab PO DAILY RF: 0 ferrous sulfate 325 mg (65 mg iron) Tablet 325 mg PO BID RF: 0 mercaptopurine 50 mg Tablet 50 mg PO DAILY RF: 0 guaifenesin 100 mg/5 mL Liquid 200 mg PO Q4H PRN (Reason: Cough) RF: 0 ibuprofen 600 mg Tablet 600 mg PO Q8H PRN (Reason: joint pain) RF: 0 risperidone [Risperdal] 0.5 mg tablet 0.5 mg PO BID 30 Days Qty: 60 RF: 0 cephalexin 500 mg capsule 500 mg PO QID 7 Days Qty: 28 RF: 0 sulfamethoxazole-trimethoprim [Bactrim DS] 800-160 mg tablet 1 tab PO Q12H 7 Days Qty: 14 RF: 0 bacitracin 500 unit/gram ointment 1 appl topical TID Qty: 14 RF: 0 Interventions: Acute Care Transfer Worksheet (ED) Last Done: 09/17/20 17:40 Discharge Date/Time: 09/17/20 17:40
[2020-09-17 16:09] VITALS: BP 107/86; PULSE 66; RESP 18; TEMP 36.5; O2SAT 94; BMI 38.0
--- NOTE | 2020-09-17 16:51 | PC.NURSE ---
PT HAVING SOME DIFFICULTY WITH ORAL SECRETIONS, BUT IS ABLE TO SPEAK IN SENTENCES. PLAN IS FOR TRANSFER FOR REMOVAL OF UPPER AIRWAY FB
[2020-09-17 17:04] LABS: Basophils Percent Auto 0.4 % (0-2); Eosinophils Absolute Auto 0.2 X10*3/uL (0.0-0.4); Eosinophils Percent Auto 2.3 % (0-4); Hematocrit 43.1 % (37-47); Hemoglobin 13.9 g/dl (12.0-16.0); Imm Gran Abs Auto 0.03 X10*3/uL (0.00-0.03); Imm Gran Pct Auto 0.4 % (0.0-0.4); Lymphocytes Absolute Auto 1.5 X10*3/uL (1.2-4.9); Lymphocytes Percent Auto 21.2 % (20-40); MANUAL DIFF FLAG NO; Mean Corpuscular HGB Conc 32.3 g/dl (31.0-35.0); Mean Corpuscular Hemoglobin 28.8 pg (27.0-33.0); Mean Corpuscular Volume 89.4 fL (80-98); Mean Platelet Volume 10.7 fL (9.4-12.3); Monocytes Absolute Auto 0.5 X10*3/uL (0.1-1.2); Monocytes Percent Auto 7.8 % (2-11); Neutrophils Absolute Auto 4.7 X10*3/uL (2.0-8.3); Neutrophils Percent Auto 67.9 % (45-73); Platelet Count 229 X10*3/uL (160-400); Red Blood Count 4.82 X10*6/uL (4.20-5.50); Red Cell Distribution Width 14.1 % (11.0-16.0); White Blood Count 6.9 X10*3/uL (4.8-10.8)
[2020-09-17 17:11] LABS: INTERNATIONAL NORM RATIO 0.9 (0.9-1.1); Prothrombin Time 11.2 SEC (10.8-13.0)
[2020-09-17 17:13] LABS: Partial Thromboplastin Time 40.6 SEC (24.1-38.0)
[2020-09-17 17:19] LABS: COVID-19 Test Negative (Negative); IDNOW Serial# 9DD0AD1C
[2020-09-17 17:31] LABS: Anion Gap 14 (12-20); Blood Urea Nitrogen 27 mg/dL (9-16); Calcium 10.1 mg/dL (8.4-10.2); Carbon Dioxide 31 mmol/L (22-29); Chloride 103 mmol/L (96-108); Estimated Glomerular Filt Rate > 60; Glucose Random 97 mg/dL (60-115); Potassium 4.4 mmol/L (3.3-5.1); Sodium 144 mmol/L (135-145)
== END 2020-09-17 17:40 | disposition short-term general hospital (02) ==
PROVIDERS: Emergency Provider Emergency Medicine
DX: T17.298A Other foreign object in pharynx causing other injury, initial encounter (principal); F50.89 Other specified eating disorder; Z68.38 Body mass index [BMI] 38.0-38.9, adult; I10 Essential (primary) hypertension; Z79.899 Other long term (current) drug therapy; Z20.822 Contact with and (suspected) exposure to COVID-19; X58.XXXA Exposure to other specified factors, initial encounter; Y93.9 Activity, unspecified; Y92.9 Unspecified place or not applicable; Y99.9 Unspecified external cause status
CPT/HCPCS: 36415; 70360; 80048; 85025; 85610; 85730; 87635; 99285; 99291

== ENCOUNTER 2020-10-08 03:07 | Emergency (ER) | payer MEDICARE, MEDICAID, SELFPAY ==
[2020-10-08 03:15] VITALS: BP 131/83; BP 133/79; PULSE 64; PULSE 80; RESP 18; TEMP 37.1; O2SAT 98; BMI 35.5
--- NOTE | 2020-10-08 03:15 | ED_ITS ---
HPI - Skin/Abscess/Foreign Bdy General Chief complaint: General Medical Stated complaint: SWALLOWED FOREIGN OBJECT Time Seen by Provider: 10/08/20 03:10 Source: patient and EMS Mode of arrival: EMS Limitations: no limitations History of Present Illness HPI narrative: Patient comes to emergency room complaining of having swallowed a hair scrunchy. Patient is known to the emergency room, patient is known to swallow foreign bodies. Patient denies abdominal pain. Related Data Home Medications Medication Instructions Recorded Confirmed Calmoseptine 1 applic TOPICAL TID PRN 02/20/20 07/05/20 Stelara 90 mg SUBCUT Q4W 02/20/20 07/05/20 acetaminophen 325 mg PO BID PRN 02/20/20 07/05/20 calcium citrate-vitamin D3 1 tab PO DAILY 02/20/20 07/05/20 [Calcium Citrate + D] famotidine 40 mg PO DAILY 02/20/20 07/05/20 ferrous sulfate 325 mg PO BID 02/20/20 07/05/20 guaifenesin 200 mg PO Q4H PRN 02/20/20 07/05/20 ibuprofen 600 mg PO Q8H PRN 02/20/20 07/05/20 mercaptopurine 50 mg PO DAILY 02/20/20 07/05/20 multivitamin 1 tab PO DAILY 02/20/20 07/05/20 sodium chloride [Saline Nasal Mist] 2 spray INTRANASAL BID PRN 02/20/20 07/05/20 Previous Rx's Medication Instructions Recorded polyethylene glycol 3350 17 3.5 g PO QAM #510 g 02/26/20 gram/dose oral powder folic acid 1 mg tablet 1 mg PO DAILY 90 Days #90 tab 04/01/20 atenolol 25 mg tablet 25 mg PO DAILY 90 Days #90 tab 06/03/20 risperidone [Risperdal] 0.5 mg PO BID 30 Days #60 tab 06/04/20 cholecalciferol (vitamin D3) 50 50 mcg PO DAILY 90 Days #90 tab 06/12/20 mcg (2,000 unit) tablet melatonin 3 mg tablet 3 mg PO BEDTIME #28 tab 07/02/20 bacitracin 500 unit/gram topical 1 appl TOPICAL TID #14 g 07/11/20 ointment cephalexin 500 mg capsule 500 mg PO QID 7 Days #28 cap 07/11/20 sulfamethoxazole 800 1 tab PO Q12H 7 Days #14 tab 07/11/20 mg-trimethoprim 160 mg tablet omega 5-wps-uwz-fish oil 300 1 cap PO TID 90 Days #270 cap 07/12/20 mg-1,000 mg capsule fluticasone propionate 50 1 spray INTRANASAL BEDTIME 30 Days 07/30/20 mcg/actuation nasal #16 g spray,suspension Allergies Allergy/AdvReac Type Severity Reaction Status Date / Time silver Allergy Unknown RASH Verified 03/12/20 11:04 [From TEGADERM AG MESH] transparent dressing Allergy Unknown skin Verified 03/12/20 11:04 irritation sensitivity haloperidol [From HALDOL] AdvReac Intermediate UNKNOWN Verified 03/12/20 11:04 Tegaderm CHG dressing: Allergy Unknown skin Uncoded 02/12/20 11:40 irritation Haldol AdvReac Unknown paradoxical Uncoded 05/29/20 13:40 effect Review of Systems Review of Systems: Constitutional : No Weight loss, No Fever, No Chills, No Night Sweats, No Fatigue, No Malaise ENT/Mouth : No Hearing loss, No Ear Pain, No Nasal Congestion, No Sinus Pain, No Hoarseness, No sore throat, No Rhinorrhea, No Swallowing Difficulty complaining of having a hair scrunchy in her mouth Eyes: No Eye Pain, No Swelling, No Redness, No Foreign Body, No Discharge, No Vision Changes Cardiovascular : No Chest Pain, No SOB, No Dyspnea on Exertion, No Orthopnea, No Edema, No Palpitations Respiratory : No Cough, No Sputum, No Wheezing, No Smoke Exposure, No Dyspnea Gastrointestinal : No Nausea, No Vomiting, No Diarrhea, No Constipation, No abdominal Pain, No Hematochezia, No Melena Genitourinary : no irregular bleeding, No Dysuria, No Urinary Frequency, No Hematuria, No Urinary Incontinence, No Urgency, No Flank Pain, No Urinary Flow Changes, No Hesitancy Musculoskeletal : No joint pain, No Myalgias, No Joint Swelling Skin : No Skin Lesions, No rash Neuro : No Weakness, No Numbness, No Paresthesias, No Loss of Consciousness, No Dizziness, No Headache Psych : No Anxiety/Panic, No Depression, No SI/HI/AH/VH, No Social Issues, Heme/Lymph: No Bruising, No Bleeding,No Lymphadenopathy Endocrine : No Polyuria, No Polydipsia, No Temperature Intolerance [facility] Past Medical History Medical History Acute constipation Anemia Anxiety Autistic disorder Chronic constipation Colitis Crohn's disease Developmental delay, mild Hypertension, essential Iron deficiency Mood disorder Pain of left lower extremity Pica in adults Prader-Willi syndrome PTSD (post-traumatic stress disorder) Swelling of left lower extremity Vitamin D deficiency Surgical History History of abdominal surgery History of throat surgery Family History Family History Father No problems noted. Mother No problems noted. Social History Social History Household Members: Other Housing: Other Do you presently have visiting nurse or other home services: Yes Alcohol intake: never service: No Current occupational status: disabled Physical Exam Vital Signs: Appearance: Alert. Oriented X3. No acute distress. Eyes: Pupils equal, round and reactive to light. ENT: Heavily salivating, the scrunch is in the mouth Neck: Normal inspection. Neck supple. No lymph nodes noted. No crepitus CVS: Normal heart rate and rhythm. Pulses normal. Normal S1 and S2 Respiratory: No respiratory distress. Breath sounds normal. No Wheezing. No rales Abdomen: Soft and nontender. No rigidity. No distention. good BS x4 Skin: Skin warm and dry. Normal skin color. Normal skin turgor. Extremities: No lower extremity edema. No lower extremity edema. No Lacerations. No Rash Neuro: Oriented X 3. No motor deficit. No sensory deficit. Moving all extermities. No slurred speech. Course Course Course Narrative: The patient was holding the foreign object in her mouth, not obstructing the airway. Patient opened her mouth, the foreign body was removed immediately. Patient was p.o. challenged, is drinking and eating, handling secretions, no sore throat, no further foreign body seen. Patient states that she did not ingest any other foreign bodies tonight, only the hair tie. Patient ready for discharge Discharge Plan Discharge Clinical Impression: Foreign body in mouth Qualifiers: Encounter type: initial encounter Qualified Code(s): T18.0XXA - Foreign body in mouth, initial encounter Patient Disposition: Home, Self-Care Instructions: Foreign Body Ingestion (ED) Additional Instructions: Please follow-up with your primary care physician tomorrow. If you have any worsening or new symptoms, please return to the emergency room or call 911 Prescriptions: No Action polyethylene glycol 3350 17 gram/dose powder 3.5 g PO QAM Qty: 510 RF: 11 folic acid 1 mg tablet 1 mg PO DAILY 90 Days Qty: 90 RF: 3 atenolol 25 mg tablet 25 mg PO DAILY 90 Days Qty: 90 RF: 0 cholecalciferol (vitamin D3) [Vitamin D3] 50 mcg (2,000 unit) tablet 50 mcg PO DAILY 90 Days Qty: 90 RF: 3 melatonin 3 mg tablet 3 mg PO BEDTIME Qty: 28 RF: 5 omega 4-bca-uvy-fish oil 300-1,000 mg capsule 1 cap PO TID 90 Days Qty: 270 RF: 3 fluticasone propionate 50 mcg/actuation spray,suspension 1 spray intranasal BEDTIME 30 Days Qty: 16 RF: 5 calcium citrate-vitamin D3 [Calcium Citrate + D] 315 mg-5 mcg (200 unit) Tablet 1 tab PO DAILY RF: 0 Calmoseptine 0.44-20.6 % Ointment 1 applic TOPICAL TID PRN (Reason: Rash) RF: 0 acetaminophen 325 mg Tablet 325 mg PO BID PRN (Reason: Pain (Scale Score 1-3)) RF: 0 Stelara 90 mg/mL Syringe 90 mg SUBCUT Q4W RF: 0 famotidine 40 mg Tablet 40 mg PO DAILY RF: 0 sodium chloride [Saline Nasal Mist] 0.65 % Aerosol,[place] 2 spray INTRANASAL BID PRN (Reason: Dry Nasal Passages) RF: 0 multivitamin Tablet 1 tab PO DAILY RF: 0 ferrous sulfate 325 mg (65 mg iron) Tablet 325 mg PO BID RF: 0 mercaptopurine 50 mg Tablet 50 mg PO DAILY RF: 0 guaifenesin 100 mg/5 mL Liquid 200 mg PO Q4H PRN (Reason: Cough) RF: 0 ibuprofen 600 mg Tablet 600 mg PO Q8H PRN (Reason: joint pain) RF: 0 risperidone [Risperdal] 0.5 mg tablet 0.5 mg PO BID 30 Days Qty: 60 RF: 0 cephalexin 500 mg capsule 500 mg PO QID 7 Days Qty: 28 RF: 0 sulfamethoxazole-trimethoprim [Bactrim DS] 800-160 mg tablet 1 tab PO Q12H 7 Days Qty: 14 RF: 0 bacitracin 500 unit/gram ointment 1 appl topical TID Qty: 14 RF: 0
== END 2020-10-08 04:06 | disposition home or self-care (01) ==
LOC: HO.ED 03:26
PROVIDERS: Emergency Provider Emergency Medicine
DX: T18.0XXA Foreign body in mouth, initial encounter (principal); X58.XXXA Exposure to other specified factors, initial encounter; Y93.9 Activity, unspecified; Y92.9 Unspecified place or not applicable; Y99.9 Unspecified external cause status
CPT/HCPCS: 99283

== ENCOUNTER 2020-12-24 18:21 | Emergency (ER) | payer MEDICARE, MEDICAID, SELFPAY ==
--- NOTE | ~2020-12-24 | XR_ITS ---
EXAMINATION: CHEST AND ABDOMEN CLINICAL INFORMATION: Swallowed metallic screw COMPARISON: Chest radiograph 04/16/2020 TECHNIQUE: Single view chest, single view abdomen FINDINGS: A metallic screw is seen in the right mid abdomen just below the level of distal end of the 12th right rib. Based upon anatomic considerations from the CT scan, this may be within the transverse colon, but could be within the gastric antrum although on the CT scan, the antrum did not extend as low. The screw measures at least 1.8 cm in greatest length. XR/XR chest 1V IMPRESSION: Metallic screw right midabdomen.
--- NOTE | ~2020-12-24 | XR_ITS ---
EXAMINATION: CHEST AND ABDOMEN CLINICAL INFORMATION: Swallowed metallic screw COMPARISON: Chest radiograph 04/16/2020 TECHNIQUE: Single view chest, single view abdomen FINDINGS: A metallic screw is seen in the right mid abdomen just below the level of distal end of the 12th right rib. Based upon anatomic considerations from the CT scan, this may be within the transverse colon, but could be within the gastric antrum although on the CT scan, the antrum did not extend as low. The screw measures at least 1.8 cm in greatest length. XR/XR KUB IMPRESSION: Metallic screw right midabdomen.
[2020-12-24 18:32] VITALS: BP 129/84; PULSE 69; RESP 16; TEMP 36.2; O2SAT 98; BMI 39.0
--- NOTE | 2020-12-24 20:04 | ED_ITS ---
HPI - General Adult General Chief complaint: Skin/Abscess/Foreign Body Stated complaint: foreign body Time Seen by Provider: 12/24/20 20:03 Source: patient Mode of arrival: ambulatory Limitations: no limitations History of Present Illness HPI narrative: Patient presents to the ED after swallowing small blunt less metal screw. Patient's swallowed it couple hours ago as per health aide from program. Patient not in any distress. Patient denies any abdominal pain, nausea, or vomiting. Patient has past medical history of PICA. Related Data Home Medications Medication Instructions Recorded Confirmed calcium citrate 315 mg-vitamin D3 1 tab PO DAILY 02/20/20 10/09/20 5 mcg (200 unit) tablet (Calcium Citrate + D) famotidine 40 mg tablet 40 mg PO DAILY 02/20/20 10/09/20 ferrous sulfate 325 mg (65 mg 325 mg PO BID 02/20/20 10/09/20 iron) tablet menthol 0.44 %-zinc oxide 20.6 % 1 applic TOPICAL TID PRN 02/20/20 10/09/20 topical ointment (Calmoseptine) mercaptopurine 50 mg tablet 50 mg PO DAILY 02/20/20 10/09/20 multivitamin 1 tab PO DAILY 02/20/20 10/09/20 sodium chloride 0.65 % nasal spray 2 spray INTRANASAL BID PRN 02/20/20 10/09/20 aerosol (Saline Nasal Mist) ustekinumab 90 mg/mL subcutaneous 90 mg SUBCUT Q4W 02/20/20 10/09/20 syringe (Stelara) Previous Rx's Medication Instructions Recorded folic acid 1 mg tablet 1 mg PO DAILY 90 Days #90 tab 04/01/20 cholecalciferol (vitamin D3) 50 50 mcg PO DAILY 90 Days #90 tab 06/12/20 mcg (2,000 unit) tablet (Vitamin D3) bacitracin 500 unit/gram topical 1 appl TOPICAL TID #14 g 07/11/20 ointment fluticasone propionate 50 1 spray INTRANASAL BEDTIME 30 Days 07/30/20 mcg/actuation nasal #16 g spray,suspension acetaminophen 325 mg tablet 325 mg PO BID PRN 30 Days #60 tab 12/03/20 atenolol 25 mg tablet 25 mg PO DAILY 90 Days #90 tab 12/06/20 omega 0-mps-kfn-fish oil 300 1 cap PO TID 90 Days #270 cap 12/16/20 mg-1,000 mg capsule guaifenesin 100 mg/5 mL oral liquid 200 mg PO TID PRN 10 Days #200 ml 12/17/20 polyethylene glycol 3350 8.5 gram 8.5 g PO DAILY 30 Days #50 ea 12/17/20 oral powder packet Allergies Allergy/AdvReac Type Severity Reaction Status Date / Time silver Allergy Unknown RASH Verified 12/24/20 18:32 [From TEGADERM AG MESH] transparent dressing Allergy Unknown skin Verified 12/24/20 18:32 irritation sensitivity haloperidol [From HALDOL] AdvReac Intermediate UNKNOWN Verified 12/24/20 18:32 Tegaderm CHG dressing: Allergy Unknown skin Uncoded 12/24/20 18:32 irritation Haldol AdvReac Unknown paradoxical Uncoded 12/24/20 18:32 effect Review of Systems Review of Systems: Yes all other systems are reviewed and are negative Constitutional: Constitutional: Reports as per HPI and Reports no additional constitutional complaints Eyes: Eyes: Reports as per HPI and Reports no additional eye complaints ENT: Reports system reviewed and no additional complaints, except as documented and Reports as per HPI Cardiovascular: Cardiovascular: Reports as per HPI and Reports no additional cardiovascular complaints Respiratory: Respiratory: Reports as per HPI and Reports no additional respiratory complaints Gastrointestinal: Gastrointestinal: Reports as per HPI and Reports no additional gastrointestinal complaints Genitourinary: Genitourinary: Reports no additional female genitourinary complaints and Reports as per HPI Musculoskeletal: Musculoskeletal: Reports no additional musculoskeletal complaints and Reports as per HPI Neurologic: Reports system reviewed and no additional complaints, except as documented and Reports as per HPI Psychiatric: Psychiatric: Reports no additional psychiatric complaints and Reports as per HPI PMF Past Medical History Medical History Acute constipation Anemia Anxiety Autistic disorder Chronic constipation Colitis Crohn's disease Developmental delay, mild Hypertension, essential Iron deficiency Mood disorder Pain of left lower extremity Pica in adults Prader-Willi syndrome PTSD (post-traumatic stress disorder) Swelling of left lower extremity Vitamin D deficiency Surgical History History of abdominal surgery History of throat surgery Family History Family History Father No problems noted. Mother No problems noted. Social History Social History Household Members: Other Housing: Other Do you presently have visiting nurse or other home services: Yes Alcohol intake: never Patient Tobacco Use Status: Never used Tobacco Second Hand Smoke Exposure: No Advance Directives: No Advance Directives Information Provided: Yes Patient : No service: No Current occupational status: disabled Physical Exam Vital Signs: Vital Signs: Last Vital Signs Temp 97.1 F 12/24/20 18:32 Pulse 69 12/24/20 18:32 Resp 16 12/24/20 18:32 BP 129/84 12/24/20 18:32 Pulse Ox 98 12/24/20 18:32 Body Mass Index 39.0 Const: General: cooperative, healthy appearing, comfortable, no acute distress, well developed, alert, awake and Physically active Orientation/consciousness: patient oriented x3 HENMT: Head: Yes normal to inspection, Yes No palpable skull fracture present, Yes normocephalic and Yes atraumatic Eyes: General: appearance normal, both eyes and all related structures Neck: Neck: Yes normal visual inspection, Yes full ROM, Yes no lymphadenopathy, Yes no meningeal signs, Yes trachea midline, Yes supple and No tender Chest: Chest palpation & inspection: normal inspection of the chest and normal palpation of entire chest wall Resp: Effort & Inspection: normal respiratory effort and able to speak in complete sentences Auscultation: clear to auscultation bilaterally Cardio: Jugular venous distension: no JVD Heart sounds: S1 normal heart sound present and S2 normal heart sound present GI: Inspection: Yes normal to inspection and No abdominal wall ecchymosis Palpation (GI): Soft to palpation, not firm, nontender and no guarding : General: No CVA tenderness and Yes no CVA tenderness Back/Spine/Pelvis: Back: no CVA tenderness, No CVA tenderness and No back tenderness Skin: General skin exam: no rashes or lesions noted and elasticity normal Neuro: General: patient oriented x3, gait normal, no meningeal signs and CN's II-XI intact bilaterally Cranial nerves: Yes CN's II-XII intact bilaterally Extrem: General: Yes normal to inspection and Yes full ROM Psych: Appearance: grossly normal, well kempt and not disheveled Course Course Course Narrative: Patient will be sent for x-ray. Reevaluation(s) Reevaluation #1: X-ray shows small none blunted grew in the abdomen. Patient not having any pain. Spoke with surgeon on-call Dr. Chang who states patient could be discharged and screw will pass. Time: 20:09 Medical Decision Making MDM Narrative Medical decision making narrative: Foreign body Discharge Plan Discharge Clinical Impression: Foreign body Patient Disposition: Home, Self-Care Instructions: Foreign Body Ingestion (ED) Additional Instructions: Return to the ED immediately for any abdominal pain, nausea, vomiting, rectal bleeding, vomiting blood, or any other concerning symptoms. Please follow-up with her primary care provider. Prescriptions: No Action folic acid 1 mg tablet 1 mg PO DAILY 90 Days Qty: 90 RF: 3 cholecalciferol (vitamin D3) [Vitamin D3] 50 mcg (2,000 unit) tablet 50 mcg PO DAILY 90 Days Qty: 90 RF: 3 fluticasone propionate 50 mcg/actuation spray,suspension 1 spray intranasal BEDTIME 30 Days Qty: 16 RF: 5 acetaminophen 325 mg tablet 325 mg PO BID PRN (Reason: Pain (Scale Score 1-3)) 30 Days Qty: 60 RF: 0 atenolol 25 mg tablet 25 mg PO DAILY 90 Days Qty: 90 RF: 0 omega 0-tnv-oxn-fish oil 300-1,000 mg capsule 1 cap PO TID 90 Days Qty: 270 RF: 3 polyethylene glycol 3350 8.5 gram powder in packet 8.5 g PO DAILY 30 Days Qty: 50 RF: 8 guaifenesin 100 mg/5 mL liquid 200 mg PO TID PRN (Reason: Cough) 10 Days Qty: 200 RF: 0 calcium citrate-vitamin D3 [Calcium Citrate + D] 315 mg-5 mcg (200 unit) Tablet 1 tab PO DAILY RF: 0 Calmoseptine 0.44-20.6 % Ointment 1 applic TOPICAL TID PRN (Reason: Rash) RF: 0 Stelara 90 mg/mL Syringe 90 mg SUBCUT Q4W RF: 0 famotidine 40 mg Tablet 40 mg PO DAILY RF: 0 sodium chloride [Saline Nasal Mist] 0.65 % Aerosol,[place] 2 spray INTRANASAL BID PRN (Reason: Dry Nasal Passages) RF: 0 multivitamin Tablet 1 tab PO DAILY RF: 0 ferrous sulfate 325 mg (65 mg iron) Tablet 325 mg PO BID RF: 0 mercaptopurine 50 mg Tablet 50 mg PO DAILY RF: 0 bacitracin 500 unit/gram ointment 1 appl topical TID Qty: 14 RF: 0 Interventions: ED Discharge Assessment Last Done: 12/24/20 20:25 Discharge Date/Time: 12/24/20 20:26 Print Language: Citizen Of [place]
== END 2020-12-24 20:26 | disposition home or self-care (01) ==
PROVIDERS: Emergency Provider Emergency Medicine; PCP Internal Medicine
DX: F50.89 Other specified eating disorder (principal); R10.9 Unspecified abdominal pain; Z79.899 Other long term (current) drug therapy
CPT/HCPCS: 71045; 74018; 99283; 99284

== ENCOUNTER 2021-02-11 16:46 | Outpatient (REF) | payer MEDICARE, MEDICAID, SELFPAY ==
[2021-02-12 08:44] LABS: BV Int Neg Control Negative (Negative); BV Int Pos Control Positive (Positive)
== END 2021-02-11 16:47 | disposition home or self-care (01) ==
LOC: HO.LNP 16:46
PROVIDERS: Visit Provider Physician Assistant Medical
DX: N89.8 Other specified noninflammatory disorders of vagina (principal)
CPT/HCPCS: 87480; 87510; 87660

== ENCOUNTER 2021-05-23 15:12 | Outpatient (REF) | payer MEDICARE, MEDICAID, SELFPAY ==
[2021-05-23 16:16] LABS: MANUAL DIFF FLAG NO
[2021-05-23 16:19] LABS: Imm Gran Abs Auto 0.03 X10*3/uL (0.00-0.03); Imm Gran Pct Auto 0.5 % (0.0-0.4); Lymphocytes Percent Auto 25.2 % (20-40); PLT CLUMP 1; SCAN SMEAR FLAG 1
[2021-05-23 16:21] LABS: Basophils Percent Auto 0.5 % (0-2); Eosinophils Absolute Auto 0.1 X10*3/uL (0.0-0.4); Eosinophils Percent Auto 2.3 % (0-4); Hemoglobin 14.2 g/dl (12.0-16.0); Lymphocytes Absolute Auto 1.5 X10*3/uL (1.2-4.9); Mean Corpuscular HGB Conc 32.3 g/dl (31.0-35.0); Mean Corpuscular Hemoglobin 29.2 pg (27.0-33.0); Mean Corpuscular Volume 90.5 fL (80.0-98.0); Mean Platelet Volume 11.5 fL (9.4-12.3); Monocytes Absolute Auto 0.4 X10*3/uL (0.1-1.2); Monocytes Percent Auto 6.2 % (2-11); Neutrophils Absolute Auto 3.9 x10*3/uL (2.0-8.3); Neutrophils Percent Auto 65.3 % (45-73); Red Blood Count 4.86 X10*6/uL (4.20-5.50); Red Cell Distribution Width 13.7 % (11.0-16.0)
[2021-05-23 16:39] LABS: Platelet Count 185 X10*3/uL (160-400)
[2021-05-31 06:39] LABS: LDL Cholesterol Direct 165
[2021-05-31 06:40] LABS: Vitamin D 25-OH, D2 <4; Vitamin D 25-OH, D3 61; Vitamin D 25-OH, Total 61
== END 2021-05-23 15:13 | disposition home or self-care (01) ==
LOC: HO.HMGCLDS 15:12
PROVIDERS: PCP Internal Medicine; Visit Provider Internal Medicine
DX: Z00.01 Encounter for general adult medical examination with abnormal findings (principal); F50.89 Other specified eating disorder; I10 Essential (primary) hypertension; Q87.11 Prader-Willi syndrome; K21.9 Gastro-esophageal reflux disease without esophagitis
CPT/HCPCS: 36415; 80053; 82306; 82728; 83721; 84443; 85025

== ENCOUNTER 2021-06-19 13:42 | Outpatient (REF) | payer MEDICARE, MEDICAID, SELFPAY ==
[2021-06-19 16:52] LABS: Alanine Aminotransferase 54 U/L (0-31); Albumin Level 4.1 g/dL (3.5-5.0); Alkaline Phosphatase 83 U/L (39-117); Anion Gap 14 (12-20); Aspartate Amino Transferase 31 U/L (5-31); Bilirubin Total 0.4 mg/dL (0.0-1.0); Blood Urea Nitrogen 19 mg/dL (9-16); Calcium 9.9 mg/dL (8.4-10.2); Carbon Dioxide 28 mmol/L (22-29); Chloride 101 mmol/L (96-108); Estimated Glomerular Filt Rate > 60; Glucose Random 98 mg/dL (60-115); Potassium 4.4 mmol/L (3.3-5.1); Sodium 139 mmol/L (135-145); Total Protein 7.7 g/dL (6.5-8.0)
[2021-06-20 07:01] LABS: Prolactin <1.0 ng/mL
== END 2021-06-19 13:43 | disposition home or self-care (01) ==
LOC: HO.HMGCLDS 13:42
PROVIDERS: Visit Provider Psychiatry & Neurology Child & Adolescent Psychiatry
DX: Z79.899 Other long term (current) drug therapy (principal)
CPT/HCPCS: 36415; 80053; 84146

== ENCOUNTER 2021-07-17 10:06 | Outpatient (REF) | payer MEDICARE, MEDICAID, SELFPAY ==
--- NOTE | 2021-07-17 | ECG_ITS ---
Test Reason : HIGH RISK MED USE Blood Pressure : / mmHG Vent. Rate : 059 BPM Atrial Rate : 059 BPM P-R Int : 204 ms QRS Dur : 102 ms QT Int : 434 ms P-R-T Axes : 024 049 019 degrees QTc Int : 429 ms Sinus bradycardia Incomplete right bundle branch block Borderline ECG No previous ECGs available Referred By: Vega Ford Electronically Signed By:ERNA CLINTON MD
[2021-07-17 11:05] LABS: MANUAL DIFF FLAG NO
[2021-07-17 11:30] LABS: Basophils Percent Auto 0.8 % (0-2); Eosinophils Absolute Auto 0.1 X10*3/uL (0.0-0.4); Eosinophils Percent Auto 2.3 % (0-4); Hemoglobin 14.3 g/dl (12.0-16.0); Imm Gran Abs Auto 0.03 X10*3/uL (0.00-0.03); Imm Gran Pct Auto 0.6 % (0.0-0.4); Lymphocytes Absolute Auto 1.1 X10*3/uL (1.2-4.9); Mean Corpuscular HGB Conc 32.5 g/dl (31.0-35.0); Mean Corpuscular Hemoglobin 29.9 pg (27.0-33.0); Mean Corpuscular Volume 91.9 fL (80.0-98.0); Monocytes Absolute Auto 0.4 X10*3/uL (0.1-1.2); Monocytes Percent Auto 6.8 % (2-11); Neutrophils Absolute Auto 3.5 x10*3/uL (2.0-8.3); Neutrophils Percent Auto 67.5 % (45-73); Platelet Count 240 X10*3/uL (160-400); Red Blood Count 4.79 X10*6/uL (4.20-5.50); Red Cell Distribution Width 13.7 % (11.0-16.0); White Blood Count 5.2 X10*3/uL (4.8-10.8)
[2021-07-17 11:52] LABS: Estimated Average Glucose 111 mg/dL; Hemoglobin A1c % 5.5 %
[2021-07-17 11:59] LABS: Cholesterol 245 mg/dL; HDL Cholesterol 47 mg/dL; LDL Cholesterol Calculated 166 mg/dl; Triglycerides 160 mg/dL
== END 2021-07-17 10:07 | disposition home or self-care (01) ==
LOC: HO.LAB 10:06
PROVIDERS: PCP Internal Medicine; Visit Provider Ophthalmology
DX: Z79.899 Other long term (current) drug therapy (principal)
CPT/HCPCS: 36415; 80061; 83036; 85025; 93005

== ENCOUNTER 2021-09-15 18:41 | Emergency (ER) | payer MEDICARE, MEDICAID, SELFPAY ==
--- NOTE | ~2021-09-15 | XR_ITS ---
EXAMINATION: CHEST RADIOGRAPH, KUB CLINICAL INFORMATION: Question of foreign body COMPARISON: KUB and chest 12/24/2020 TECHNIQUE: Single view chest, single view abdomen FINDINGS: Lungs are hypoinflated. No infiltrates, effusions or lung masses are seen. No radiopaque bodies are visualized. In the abdomen, the bowel gas pattern is unremarkable. A radiopaque foreign body is not seen. Moderate stool seen throughout the colon. The previously noted metallic screw that was present overlying the right mid abdomen on the 12/24/2020 study is no longer present. XR/XR chest 1V IMPRESSION: No radiopaque foreign body is detected.
--- NOTE | ~2021-09-15 | XR_ITS ---
EXAMINATION: CHEST RADIOGRAPH, KUB CLINICAL INFORMATION: Question of foreign body COMPARISON: KUB and chest 12/24/2020 TECHNIQUE: Single view chest, single view abdomen FINDINGS: Lungs are hypoinflated. No infiltrates, effusions or lung masses are seen. No radiopaque bodies are visualized. In the abdomen, the bowel gas pattern is unremarkable. A radiopaque foreign body is not seen. Moderate stool seen throughout the colon. The previously noted metallic screw that was present overlying the right mid abdomen on the 12/24/2020 study is no longer present. XR/XR KUB IMPRESSION: No radiopaque foreign body is detected.
[2021-09-15 18:44] VITALS: BP 147/104; PULSE 68; RESP 16; O2SAT 97; O2SAT 98; BMI 35.2
[2021-09-15 18:47] VITALS: BMI 43.7
[2021-09-15] MEDS: Lidocaine HCl 4 % Laryng-O-Jet 4 ML 1 APPL TOPICAL (18:52)
--- NOTE | 2021-09-15 19:34 | ED.GENADULT ---
HPI - General Adult General Chief complaint: General Medical Stated complaint: plastic ingestion Time Seen by Provider: 09/15/21 18:46 Source: patient Mode of arrival: EMS Limitations: no limitations History of Present Illness HPI narrative: Patient history of EVETTE tried to swallow part of her eyeglasses stick of that was wedged in the right side of the mouth Related Data Home Medications Medication Instructions Recorded Confirmed famotidine 40 mg tablet 40 mg PO DAILY 02/20/20 08/12/21 ferrous sulfate 325 mg (65 mg 325 mg PO BID 02/20/20 08/12/21 iron) tablet mercaptopurine 50 mg tablet 50 mg PO DAILY 02/20/20 08/12/21 multivitamin 1 tab PO DAILY 02/20/20 08/12/21 sodium chloride 0.65 % nasal spray 2 spray intranasal BID PRN Dry 02/20/20 08/12/21 aerosol (Saline Nasal Mist) Nasal Passages ustekinumab 90 mg/mL subcutaneous 90 mg subcut Q4W 02/20/20 08/12/21 syringe (Stelara) aripiprazole 5 mg tablet 5 mg PO DAILY 05/23/21 08/12/21 Previous Rx's Medication Instructions Recorded acetaminophen 325 mg tablet 325 mg PO BID PRN Pain (Scale 12/03/20 Score 1-3) 30 days #60 tabs omega 5-gru-zxv-fish oil 300 1 cap PO TID 90 days #270 caps 12/16/20 mg-1,000 mg capsule sodium chloride 0.65 % nasal spray 1 spray intranasal BID PRN dry 12/31/20 aerosol (Saline Mist) nasal passages 30 days #60 mL calcium citrate 315 mg-vitamin D3 1 tab PO DAILY 90 days #90 tabs 01/13/21 5 mcg (200 unit) tablet (Calcium Citrate + D) folic acid 1 mg tablet 1 mg PO DAILY 90 days #90 tabs 02/10/21 atenolol 25 mg tablet 25 mg PO DAILY 90 days #90 tabs 03/11/21 cholecalciferol (vitamin D3) 50 50 mcg PO DAILY 90 days #90 tabs 04/07/21 mcg (2,000 unit) tablet (Vitamin D3) fluticasone propionate 50 1 spray intranasal BEDTIME 30 days 06/17/21 mcg/actuation nasal #16 grams spray,suspension polyethylene glycol 3350 4 gram 8.5 g PO DAILY 30 days #72 ea 08/07/21 oral powder packet Allergies Allergy/AdvReac Type Severity Reaction Status Date / Time silver Allergy Unknown RASH Verified 08/12/21 10:13 [From TEGADERM AG MESH] transparent dressing Allergy Unknown skin Verified 08/12/21 10:13 irritation sensitivity haloperidol [From HALDOL] AdvReac Intermediate UNKNOWN Verified 08/12/21 10:13 Tegaderm CHG dressing: Allergy Unknown skin Uncoded 08/12/21 10:13 irritation Haldol AdvReac Unknown paradoxical Uncoded 08/12/21 10:13 effect Review of Systems Review of Systems: Yes all other systems are reviewed and are negative PMFSH Past Medical History Medical History Acute constipation Anxiety Autistic disorder Colitis Developmental delay, mild Mood disorder Pica in adults PTSD (post-traumatic stress disorder) Swelling of left lower extremity Surgical History History of abdominal surgery History of throat surgery Family History Family History Father No problems noted. Mother No problems noted. Social History Social History Household Members: Other Housing: Other Do you presently have visiting nurse or other home services: Yes Alcohol intake: never Patient Tobacco Use Status: Never used Tobacco e-Cigarette/Vaping Use: Never Used Second Hand Smoke Exposure: No Advance Directives: No Advance Directives Information Provided: No service: No Current occupational status: disabled Cognitive needs: No Hearing needs: No Vision needs: Yes Physical Exam ED Vital Signs: Vital Signs - 24 hr 09/15/21 18:44 Pulse Rate 68 Respiratory Rate 16 Blood Pressure 147/104 H Pulse Oximetry 98 Oxygen Delivery Method Room Air BMI result Body Mass Index 43.7 Const General: comfortable and no acute distress Orientation/consciousness: patient oriented x3 HENMT Mouth/tongue images: 1. Foreign body part of the glasses on the right side of mouth Throat: Yes posterior oropharynx normal Neck Neck: Yes normal visual inspection, Yes full ROM and Yes no lymphadenopathy Resp Effort & Inspection: normal respiratory effort and able to speak in complete sentences Auscultation: clear to auscultation bilaterally Cardio Jugular venous distension: no JVD Palpation: normal PMI Rate: regular rate Rhythm: regular rhythm Heart sounds: S1 normal heart sound present and S2 normal heart sound present GI Inspection: Yes normal to inspection Palpation (GI): Soft to palpation and nontender Auscultation: normal bowel sounds Neuro General: patient oriented x3, gait normal and no focal motor deficits Medical Decision Making MDM Narrative Medical decision making narrative: Foreign body was removed using the blunt forceps easily without any complication Discharge Plan Discharge Clinical Impression: Foreign body ingestion Patient Disposition: Home, Self-Care Instructions: Foreign Body in Pharynx (ED) Additional Instructions: do not ingest any foreign bodies Follow-up with therapist Prescriptions: No Action acetaminophen 325 mg tablet 325 mg PO BID PRN (Reason: Pain (Scale Score 1-3)) 30 Days Qty: 60 0RF omega 6-hoq-rhk-fish oil 300-1,000 mg capsule 1 cap PO TID 90 Days Qty: 270 3RF sodium chloride [Saline Mist] 0.65 % aerosol,spray 1 spray intranasal BID PRN (Reason: dry nasal passages) 30 Days Qty: 60 0RF calcium citrate-vitamin D3 [Calcium Citrate + D] 315 mg-5 mcg (200 unit) tablet 1 tab PO DAILY 90 Days Qty: 90 3RF folic acid 1 mg tablet 1 mg PO DAILY 90 Days Qty: 90 3RF atenolol 25 mg tablet 25 mg PO DAILY 90 Days Qty: 90 3RF Rx Instructions: Hold for systolic blood pressure less than 110 cholecalciferol (vitamin D3) [Vitamin D3] 50 mcg (2,000 unit) tablet 50 mcg PO DAILY 90 Days Qty: 90 3RF fluticasone propionate 50 mcg/actuation spray,suspension 1 spray intranasal BEDTIME 30 Days Qty: 16 5RF polyethylene glycol 3350 4 gram powder in packet 8.5 g PO DAILY 30 Days Qty: 72 6RF Stelara 90 mg/mL Syringe 90 mg SUBCUT Q4W famotidine 40 mg Tablet 40 mg PO DAILY sodium chloride [Saline Nasal Mist] 0.65 % Aerosol,[place] 2 spray INTRANASAL BID PRN (Reason: Dry Nasal Passages) multivitamin Tablet 1 tab PO DAILY ferrous sulfate 325 mg (65 mg iron) Tablet 325 mg PO BID mercaptopurine 50 mg Tablet 50 mg PO DAILY aripiprazole 5 mg tablet 5 mg PO DAILY Discharge Date/Time: 09/15/21 19:46
== END 2021-09-15 19:46 | disposition home or self-care (01) ==
PROVIDERS: Emergency Provider Internal Medicine; PCP Internal Medicine
DX: T18.0XXA Foreign body in mouth, initial encounter (principal); R10.9 Unspecified abdominal pain; R07.89 Other chest pain; X58.XXXA Exposure to other specified factors, initial encounter; Y93.9 Activity, unspecified; Y92.9 Unspecified place or not applicable; Y99.9 Unspecified external cause status; Z79.899 Other long term (current) drug therapy
CPT/HCPCS: 40804; 71045; 74018; 99282; 99284

== ENCOUNTER → 2021-12-30 10:22 | Outpatient (BNVA) | payer MEDICARE, MEDICAID, SELFPAY | PROVIDERS: PCP Internal Medicine; Visit Provider Surgery Vascular Surgery | DX: I83.12 Varicose veins of left lower extremity with inflammation (principal); E66.01 Morbid (severe) obesity due to excess calories; Z68.42 Body mass index [BMI] 45.0-49.9, adult | CPT/HCPCS: 99202 ==

== ENCOUNTER → 2022-02-09 10:00 | Outpatient (BNVA) | payer MEDICARE, MEDICAID, SELFPAY | PROVIDERS: PCP Internal Medicine; Referring Provider Internal Medicine; Visit Provider Internal Medicine | DX: R06.02 Shortness of breath (principal) | CPT/HCPCS: 93005; 99202 ==

== ENCOUNTER → 2022-02-13 12:54 | Outpatient (REF) | payer MEDICARE, MEDICAID, SELFPAY ==
--- NOTE | 2022-02-13 12:59 | CA_ITS ---
Transthoracic Echocardiogram Patient (Last, First, Middle): Tiki Sharp, Gender: Female Date of : 1995 Age: 26 Procedure Date: 02/13/2022 Procedure Type: Transthoracic Echocardiogram Location: OP Height: 152.4 cm Weight: 102.06 kg BSA: 1.96 m2 Heart Rate: 69 bpm BP: 128 / 72 mmHg Pulp Grinder: TRACY Referring MD: Uriel Romero MD Machine Clothing Worker: Messi Roberts MD Symptoms: R06.02 - Shortness of breath Study Quality: Fair but adequate ECG Rhythm: Sinus Conclusions: - Essentially normal study Findings Left Ventricle The visually estimated ejection fraction is between 60-65%. Regional wall motion abnormalities can not be excluded due to suboptimal endocardial definition. Spectral Doppler is indicative of a normal filling pattern. Right Ventricle Normal right ventricular cavity size. Atria The left atrium is normal in size. Interatrial shunt cannot be excluded. The right atrium is normal in size. Aortic Valve The aortic valve structure and function is likely normal. There is no aortic valve stenosis. There is no aortic valve regurgitation. Mitral Valve Likely normal mitral valve structure and function. There is trace mitral valve regurgitation. There is no mitral valve stenosis. Pulmonic Valve The pulmonic valve was not well visualized. Tricuspid Valve Likely normal tricuspid valve structure and function. There is trace tricuspid valve regurgitation. The right ventricular systolic pressure is normal. The right ventricular systolic pressure is 24 mmHg. Normal right atrial pressure. Great Vessels All visible segments of the aorta are normal in size. The pulmonary artery was not well visualized. Venous The inferior vena cava is normal in size and collapses greater than 50% with inspiration. Pericardium/Pleural There is no evidence of pericardial effusion. Prior Study Comparison No prior study available for comparison. Measurements 2D Linear Measurements IVSd: 0.60 0.6-0.9/0.6-1.0 cm LVIDd: 4.01 3.9-5.3/4.2-5.9 cm LVIDd Index: 2.05 2.4-3.2/2.2-3.1 cm/m2 LVIDs: 2.43 2.0-3.6 cm LVPWd: 0.54 0.7-1.1 cm LA Diam: 3.20 2.7-3.8/3.0-4.0 cm LAIDs Index: 1.63 1.5-2.3 cm/m2 LV Mass: 75.08 67-162/88-224 g LV Mass Index: 38.30 43-95/49-115 g/m2 LVOT Diam: 1.90 3.0+(-)1.3 cm 2D Systolic Function EF Teich: 70.00 >55% Mitral Valve MV Pk E: 1.00 MV PK A: 0.54 MV Decel Time: 182.00 E/A: 1.90 E'Lateral: 11.50 E'Medial: 7.51 E/E' Med: 13.30 E/E' Lat: 8.70 PHT: 53.00 MVA PHT: 4.15 Decel [place]: 5.51 Aortic Valve AoV Pk Cheikh: 1.38 AoV Pk Grad: 8.00 ORIANA: 3.33 LVOT LVOT Pk Cheikh: 1.62 LVOT Mn Cheikh: 1.12 LVOT VTI: 0.33 LVOT Pk Grad: 10.00 LVOT Mn Grad: 6.00 LVOT Diam: 1.90 LVOT Area: 2.84 Diastolic Function MV Pk E: 1.00 MV Pk A: 0.54 E/A: 1.90 E'Medial: 7.51 E/E' Med: 13.30 E' Laterial: 11.50 E/E' Lat: 8.70 Right Ventricle TAPSE (mm): 22.30 TVS' Cheikh: 8.70 Tricuspid Valve TR Pk Cheikh: 2.29 TR Pk Grad: 21.00 RA Press: 3.00 RVSP: 24.00 Great Vessels Aorta Sinus of Valsalva: 2.50 2.0-3.5 cm Ao Asc: 2.60 2.1-3.4 cm Pulmonary Veins Pulm Vein S/D 1.30 Pulmonary Valve PV Pk Cheikh: 1.45 Peak PV Grad: 8.00 Updated in Other Vendor System with Status of Final Messi Roberts MD electronically signed on 02/14/2022 1:19:54 PM with status of Final
== END ==
LOC: HO.CARD 12:54
PROVIDERS: Visit Provider Internal Medicine
DX: R06.02 Shortness of breath (principal)
CPT/HCPCS: 93306

== ENCOUNTER 2022-03-05 08:25 | Outpatient (REF) | payer MEDICARE, MEDICAID, SELFPAY ==
--- NOTE | ~2022-03-05 | US_ITS ---
EXAMINATION: US VENOUS REFLUX/INSUFFICIENCY CLINICAL INFORMATION: Varicose veins of left lower extremity with inflammation. COMPARISON: Ultrasound 03/12/2020 TECHNIQUE: Bilateral lower extremity venous insufficiency ultrasound was performed with velocity measurements. Color flow Doppler imaging was performed. FINDINGS: RIGHT SIDE: GREATER SAPHENOUS VEIN: The right saphenofemoral junction measures 1cm. The reflux time is 0 ms. Proximal thigh measures 0.5cm. Reflux time is 0ms. Mid thigh measures 0.3cm. Reflux time is 0ms. Above-knee measures 0.3cm. Reflux time is 0ms. At the knee measures 0.3cm. Reflux time is 0ms. Below the knee measures 0.3cm. Reflux time is 0ms. Mid calf measures 0.3cm. Reflux time is 0ms. At the level of the ankle it measures0.3cm. Reflux time is 0ms. There is a lateral accessory saphenous vein. At the saphenofemoral junction this measures 0.5 cm and there is no demonstrable reflux. At the mid thigh measures 0.3 cm and there is no demonstrable reflux. SMALL SAPHENOUS VEIN: The upper right small saphenous vein measures 0.4 cm. Reflux time is 1392ms. The lower small saphenous vein measures 0.3cm. Reflux time is 1748ms. At the calf small saphenous vein measures 0.4 cm in diameter. There is no demonstrable reflux. There is no evidence of deep venous thrombosis involving the common femoral vein, mid femoral vein, or popliteal vein. There is evidence of reflux at the level of the popliteal vein with reflux time 1216 ms. LEFT SIDE: GREATER SAPHENOUS VEIN: The left saphenofemoral junction measures 0.9cm. The reflux time is 0 ms. Proximal thigh measures 0.5cm. Reflux time is 0ms. Mid thigh measures 0.4cm. Reflux time is 0ms. Above-knee measures 0.4cm. Reflux time is 0ms. At the knee measures 0.4cm. Reflux time is 0ms. Below the knee measures 0.3cm. Reflux time is 0ms. Mid calf measures 0.3cm. Reflux time is 0ms. At the level of the ankle it measures0.2cm. Reflux time is 0ms. There is an accessory saphenous vein which measures 0.3 cm at the saphenofemoral junction and has no demonstrable reflux. At the mid thigh measures 0.3 cm and has no demonstrable reflux. SMALL SAPHENOUS VEIN: The upper left small saphenous vein measures 0.5 cm. Reflux time is ms. The lower small saphenous vein measures 0.3cm. Reflux time is 1588ms. At the level of the distal calf the vessel measures 0.3 cm. Reflux time is 3180 ms. There is no evidence of DVT or deep venous reflux involving the common femoral vein, mid femoral vein, popliteal vein. US/US venous duplex LE BI IMPRESSION: On the right there is reflux within the small saphenous vein at the level of the saphenous popliteal junction and midcalf. There is also evidence of venous reflux at the level of the right popliteal vein. On the left there is reflux within the small saphenous vein at the level of the midcalf and distal calf.
== END 2022-03-05 08:26 | disposition home or self-care (01) ==
LOC: HO.US 08:25
PROVIDERS: Visit Provider Surgery Vascular Surgery
DX: I83.12 Varicose veins of left lower extremity with inflammation (principal)
CPT/HCPCS: 93970

== ENCOUNTER → 2022-03-10 13:04 | Outpatient (BNVA) | payer MEDICARE, MEDICAID, SELFPAY | PROVIDERS: PCP Internal Medicine; Visit Provider Surgery Vascular Surgery | DX: I83.11 Varicose veins of right lower extremity with inflammation (principal) | CPT/HCPCS: 99212 ==

== ENCOUNTER → 2022-03-12 10:06 | Outpatient (BNVA) | payer MEDICARE, MEDICAID, SELFPAY | PROVIDERS: PCP Internal Medicine; Visit Provider Internal Medicine | DX: E66.01 Morbid (severe) obesity due to excess calories (principal); R40.0 Somnolence; Q87.11 Prader-Willi syndrome | CPT/HCPCS: 99202 ==

== ENCOUNTER 2022-03-17 10:56 | Outpatient (REF) | payer MEDICARE, MEDICAID, SELFPAY ==
[2022-03-17 14:09] LABS: MANUAL DIFF FLAG NO
[2022-03-17 14:16] LABS: Basophils Percent Auto 0.6 % (0-2); Eosinophils Absolute Auto 0.1 X10*3/uL (0.0-0.4); Hematocrit 42.7 % (37.0-47.0); Hemoglobin 13.6 g/dl (12.0-16.0); Imm Gran Abs Auto 0.04 X10*3/uL (0.00-0.03); Imm Gran Pct Auto 0.9 % (0.0-0.4); Lymphocytes Absolute Auto 1.3 X10*3/uL (1.2-4.9); Lymphocytes Percent Auto 28.1 % (20-40); Mean Corpuscular HGB Conc 31.9 g/dl (31.0-35.0); Mean Corpuscular Hemoglobin 28.1 pg (27.0-33.0); Mean Corpuscular Volume 88.2 fL (80.0-98.0); Mean Platelet Volume 11.2 fL (9.4-12.3); Monocytes Absolute Auto 0.4 X10*3/uL (0.1-1.2); Monocytes Percent Auto 8.5 % (2-11); Neutrophils Absolute Auto 2.8 x10*3/uL (2.0-8.3); Neutrophils Percent Auto 58.9 % (45-73); Platelet Count 308 X10*3/uL (160-400); Red Blood Count 4.84 X10*6/uL (4.20-5.50); Red Cell Distribution Width 14.6 % (11.0-16.0); White Blood Count 4.7 X10*3/uL (4.8-10.8)
[2022-03-17 16:42] LABS: Alanine Aminotransferase 76 U/L (0-31); Albumin Level 4.2 g/dL (3.5-5.0); Alkaline Phosphatase 78 U/L (39-117); Anion Gap 13 (12-20); Aspartate Amino Transferase 35 U/L (5-31); Bilirubin Total 0.4 mg/dL (0.0-1.0); Blood Urea Nitrogen 25 mg/dL (9-16); Calcium 9.6 mg/dL (8.4-10.2); Carbon Dioxide 30 mmol/L (22-29); Chloride 104 mmol/L (96-108); Estimated Glomerular Filt Rate > 60; Ferritin 110 ng/mL (10-122); Glucose Random 159 mg/dL (60-115); Potassium 4.3 mmol/L (3.3-5.1); Sodium 143 mmol/L (135-145); TSH reflex Free T4 2.47 uIU/mL (0.32-4.0); Total Protein 7.2 g/dL (6.5-8.0)
[2022-03-17 17:01] LABS: Vitamin B12 596 pg/mL (200-900)
[2022-03-18 21:48] LABS: LDL Cholesterol Direct 162 mg/dL (<100)
[2022-03-21 14:48] LABS: Vitamin D 25-OH, D2 <4 ng/mL; Vitamin D 25-OH, D3 49 ng/mL; Vitamin D 25-OH, Total 49 ng/mL (30-100)
== END 2022-03-17 10:57 | disposition home or self-care (01) ==
LOC: HO.HMGCLDS 10:56
PROVIDERS: PCP Internal Medicine; Visit Provider Internal Medicine
DX: I10 Essential (primary) hypertension (principal); Q87.11 Prader-Willi syndrome; E61.1 Iron deficiency; K50.90 Crohn's disease, unspecified, without complications; K59.09 Other constipation; D64.9 Anemia, unspecified; E55.9 Vitamin D deficiency, unspecified; K21.9 Gastro-esophageal reflux disease without esophagitis; R79.89 Other specified abnormal findings of blood chemistry
CPT/HCPCS: 36415; 80053; 82306; 82607; 82728; 83721; 84443; 85025

== ENCOUNTER → 2022-04-03 10:36 | Outpatient (BNVA) | payer MEDICARE, MEDICAID, SELFPAY | PROVIDERS: PCP Internal Medicine; Visit Provider Surgery Vascular Surgery | DX: I83.11 Varicose veins of right lower extremity with inflammation (principal) | CPT/HCPCS: 36475 ==

== ENCOUNTER 2022-04-07 09:41 | Outpatient (REF) | payer MEDICARE, MEDICAID, SELFPAY ==
--- NOTE | ~2022-04-07 | US_ITS ---
EXAMINATION: TRIPLEX SCANNING OF RIGHT LOWER EXTREMITY; SUPERFICIAL ULTRASOUND WITH DOPPLER OF RIGHT LOWER EXTREMITY CLINICAL INFORMATION: Status post radiofrequency ablation of the right small saphenous vein Ambulatory phlebectomy performed: No COMPARISON: Venous duplex on 03/05/22 TECHNIQUE: Color flow triplex imaging and compression Doppler were performed as well as superficial ultrasound with Doppler. FINDINGS: RIGHT LOWER EXTREMITY DEEP VENOUS SYSTEM: Respiratory variation, normal compression and augmented flow are noted throughout the lower extremity. The visualized common femoral vein, femoral vein, profunda femoral vein, popliteal vein and the calf veins show no evidence of deep venous thrombosis. There is no evidence of Molina's cyst. SUPERFICIAL VENOUS SYSTEM: The small saphenous vein is occluded from the access site to just before the saphenofemoral junction. There is no extension of thrombus into the deep system. US/US venous duplex LE RT IMPRESSION: No evidence of DVT.
== END 2022-04-07 09:42 | disposition home or self-care (01) ==
LOC: HO.US 09:41
PROVIDERS: PCP Internal Medicine; Visit Provider Surgery Vascular Surgery
DX: M79.604 Pain in right leg (principal)
CPT/HCPCS: 93971

== ENCOUNTER → 2022-04-16 10:45 | Outpatient (BNVA) | payer MEDICARE, MEDICAID, SELFPAY | PROVIDERS: PCP Internal Medicine; Visit Provider Surgery Vascular Surgery | DX: I83.11 Varicose veins of right lower extremity with inflammation (principal) | CPT/HCPCS: 99212 ==

== ENCOUNTER → 2022-05-12 21:47 | Outpatient (REF) | payer MEDICARE, MEDICAID, SELFPAY | LOC: HO.SL 21:47 | PROVIDERS: Visit Provider Internal Medicine | DX: G47.33 Obstructive sleep apnea (adult) (pediatric) (principal) | CPT/HCPCS: 95811 ==

== ENCOUNTER → 2022-07-23 10:51 | Outpatient (BNVA) | payer MEDICARE, MEDICAID, SELFPAY | PROVIDERS: PCP Internal Medicine; Visit Provider Surgery Vascular Surgery | DX: I83.12 Varicose veins of left lower extremity with inflammation (principal) | CPT/HCPCS: 99212 ==

== ENCOUNTER → 2022-08-03 09:54 | Outpatient (BNVA) | payer MEDICARE, MEDICAID, SELFPAY | PROVIDERS: PCP Internal Medicine; Visit Provider Internal Medicine | DX: G47.33 Obstructive sleep apnea (adult) (pediatric) (principal); E66.01 Morbid (severe) obesity due to excess calories; Z68.42 Body mass index [BMI] 45.0-49.9, adult; Q87.11 Prader-Willi syndrome | CPT/HCPCS: 99212 ==

== ENCOUNTER → 2022-08-28 08:35 | Outpatient (BNVA) | payer MEDICARE, MEDICAID, SELFPAY | PROVIDERS: PCP Internal Medicine; Visit Provider Surgery Vascular Surgery | DX: I83.12 Varicose veins of left lower extremity with inflammation (principal) | CPT/HCPCS: 36475 ==

== ENCOUNTER 2022-08-31 11:16 | Outpatient (REF) | payer MEDICARE, MEDICAID, SELFPAY ==
--- NOTE | ~2022-08-31 | US_ITS ---
EXAMINATION: US VENOUS ULTRASOUND WITH DOPPLER LOWER EXTREMITY, LEFT CLINICAL INFORMATION: Evaluate for deep vein thrombosis. Pain left leg, status post left SSV RFA on 08/28/2022. COMPARISON: Lower extremity venous ultrasound from 03/05/2022 TECHNIQUE: Ultrasound of the deep veins is performed from the hip to the calf with compression sonography and color and pulse Doppler assessment. Spectral analysis with color-flow imaging is performed. FINDINGS: The common femoral vein is compressible and exhibits a normal phasic waveform; this suggests that the iliac veins are widely patent above. Within the proximal thigh, the visualized profunda femoris vein is normal. The examined greater saphenous vein and saphenofemoral junction are normal. Superficial femoral vein is patent in the proximal, mid and distal thigh. Popliteal vein is normal to the level of the trifurcation. On compression guillen scale and color Doppler images, the visualized posterior tibial and peroneal veins are patent. There is noncompressible thrombus within the treated small saphenous vein. The venous thrombosis is seen > 5 cm below the level of the popliteal vein. No evidence of Molina's cyst. US/US venous duplex LE IMPRESSION: * No evidence of deep vein thrombosis in the left lower extremity. * There is an expected finding of noncompressible thrombus within the treated small saphenous vein.
== END 2022-08-31 11:17 | disposition home or self-care (01) ==
LOC: HO.HMGCX 11:16
PROVIDERS: PCP Internal Medicine; Visit Provider Surgery Vascular Surgery
DX: M79.605 Pain in left leg (principal)
CPT/HCPCS: 93971

== ENCOUNTER → 2022-09-16 10:46 | Outpatient (BNVA) | payer MEDICARE, MEDICAID, SELFPAY | PROVIDERS: PCP Internal Medicine; Visit Provider Internal Medicine | DX: G47.33 Obstructive sleep apnea (adult) (pediatric) (principal); Q87.11 Prader-Willi syndrome; F99 Mental disorder, not otherwise specified; F50.89 Other specified eating disorder; Z68.41 Body mass index [BMI] 40.0-44.9, adult | CPT/HCPCS: 99212 ==

== ENCOUNTER → 2022-09-24 10:45 | Outpatient (BNVA) | payer MEDICARE, MEDICAID, SELFPAY | PROVIDERS: PCP Internal Medicine; Visit Provider Surgery Vascular Surgery | DX: I83.11 Varicose veins of right lower extremity with inflammation (principal); I83.12 Varicose veins of left lower extremity with inflammation | CPT/HCPCS: 99212 ==

== ENCOUNTER 2022-10-21 09:03 | Outpatient (AMB) | payer MEDICARE, MEDICAID, SELFPAY ==
--- NOTE | 2022-10-21 09:05 | A.OFFVIS_ITS ---
Intake Vital Signs 10/21/22 09:16 Height 5 ft Weight 229 lb 8 oz BMI 44.8 BP 100/74 Blood Pressure Location Rt brachial Position Sitting Intake Visit Reasons: AWV [id number] Allergies silver [From TEGADERM AG MESH] Allergy (Unknown, Verified 10/21/22 09:16) RASH transparent dressing Allergy (Unknown, Verified 10/21/22 09:16) skin irritation sensitivity haloperidol [From HALDOL] Adverse Reaction (Intermediate, Verified 10/21/22 09:16) UNKNOWN Tegaderm CHG dressing: Allergy (Unknown, Uncoded 09/24/22 10:56) skin irritation Haldol Adverse Reaction (Unknown, Uncoded 09/24/22 10:56) paradoxical effect Medication List - Last Reconciled 10/21/22 by Galen Xie MD acetaminophen 325 mg PO BID PRN 30 days atenolol 25 mg PO DAILY 90 days calcium citrate-vitamin D3 315 mg-5 mcg (200 unit) (Calcium Citrate + D) 1 tab PO DAILY 90 days cholecalciferol (vitamin D3) (Vitamin D3) 50 mcg PO DAILY 90 days diphenhydramine HCl (Benadryl) 25 mg PO TID PRN famotidine 40 mg PO DAILY ferrous sulfate 325 mg PO BID fluconazole (Diflucan) 150 mg PO Q3D 2 doses fluconazole (Diflucan) 150 mg PO Q3D 2 doses fluoxetine 20 mg PO DAILY fluticasone propionate 50 mcg/actuation 1 spray intranasal BEDTIME 30 days folic acid 1 mg PO DAILY 90 days hydroxyzine HCl 25 mg PO BID lorazepam 1 mg PO BID PRN mercaptopurine 50 mg PO DAILY miconazole nitrate (Monistat 3) 1 appful vaginal BEDTIME 3 days multivitamin 1 tab PO DAILY naltrexone 50 mg PO DAILY olanzapine (Zyprexa) 5 mg PO BEDTIME omega 2-nfy-tkt-fish oil 300-1,000 mg 1 cap PO TID 90 days polyethylene glycol 3350 8.5 grams PO DAILY 30 days silver sulfadiazine 1% (Silvadene) 1 appl topical DAILY PRN 30 days sodium chloride 0.65% (Saline Mist) 1 spray intranasal BID PRN 30 days ustekinumab (Stelara) 90 mg subcut Q4W HPI AWV [id number] HPI Details Patient is overdue for her regular follow-up I see that her blood pressure is running 100/74 Staff member tells me that it is running around 130 at her residence We will book and other appointment she is also due for physical examination they are to bring the blood pressure monitor along if blood pressure is running that low I will stop her atenolol. She is currently on 25 mg of atenolol. Patient is having recurrent emergency room visits because of PICA Continued to have vaginal irritation, stop tell me that patient is hypersexual and continue to irritate her genitalia Due for labs order placed Due for OBGYN visit HPI Comments History of Present Illness Details AWV Medical/social history reviewed Past medical history reviewed [place] of care / care team list updated Surgical/ hospitalization history reviewed Current medications including OTC and supplements reviewed Family history reviewed Tobacco controlled form updated Alcohol use form updated Illicit drug use in social history reviewed Current diagnosis of depression ?screening updated Appropriate PHQ 2/PHQ-9 completed . Vital signs reviewed Alcohol tobacco drug use reviewed and discussed . MMSE completed . ? Fall risk: ?Assessed Fall history: ?None Have you had any falls with injury in the past year?? No Have you had 2 or more falls in the past year?? No Fall risk assessment completed Home safety discussed with the patient Functional ability assessed and discussed and documented Activities of daily living reviewed and appropriate actions taken . HRA filled out by the patient and reviewed by provider and scanned . Appropriate written screening schedule established . Any health advise needed provided . Advance care planning discussed with the patient , necessary paperwork filled Examination IPPE/AWE: Balance intact Romberg unable to test Tandem walk patient unable to perform walk-in turn intact rise from sit to stand intact . ?Hearing ?whisper test cant follow instructions . Medication list reviewed, patient is stable on medications All other providers patient is seeing discussed and noted . MENTAL STATUS EXAM NOT PERFORMED PATIENT HAS INTELLECTUAL DISABILITY [facility] Medical History Acute constipation Anemia Anxiety Autistic disorder Chronic constipation Colitis Crohn's disease Developmental delay, mild Hypertension, essential Iron deficiency Mood disorder Morbid obesity KARLA (obstructive sleep apnea) Pain of left lower extremity Pica in adults Prader-Willi syndrome PTSD (post-traumatic stress disorder) Somnolence, daytime Swelling of left lower extremity Vitamin D deficiency Surgical History History of abdominal surgery History of throat surgery Family History Father No problems noted. Mother No problems noted. Social History Household Members: Other Housing: Other Do you presently have visiting nurse or other home services: Yes Alcohol intake: never Patient Tobacco Use Status: Never used Tobacco e-Cigarette/Vaping Use: Never Used Second Hand Smoke Exposure: No service: No Current occupational status: disabled Cognitive needs: No Hearing needs: No Vision needs: Yes Questionnaire Medicare Wellness Checkup What gender do you identify with?: female During the past 4 weeks, how much have you been bothered by emotional problems such as feeling anxious, depressed, irritable, sad or downhearted, and blue?: quite a bit During the past 4 weeks, has your physical & emotional health limited your social activities with family, friends, neighbors, or groups?: extremely During the past 4 weeks, how much bodily pain have you generally had?: no pain During the past 4 weeks, was someone available to help you if you needed & wanted help?: yes, as much as I wanted During the past 4 weeks, what was the hardest physical activity you could do for at least 2 minutes?: very light Can you get to places out of walking distance without help? (For eg., can you travel alone on buses, taxis or drive your car?): No Can you go shopping for groceries or clothes without someone's help?: No Can you prepare your own meals?: No Can you do your housework without help?: No Because of any health problems, do you need the help of another person with your personal care needs such as eating, bathing, dressing or getting around the house?: Yes Can you handle your own money without help?: No During the past 4 weeks, how would you rate your health in general?: good During the past 4 weeks how have things been going for you?: pretty bad Are you having difficulties driving your car?: not applicable, I don't use a car Do you always fasten your seat belt when you are in a car?: yes, usually During past 4 weeks, have you been bothered by the following: never: Falling or dizzy when standing up, Trouble eating well? and Problems using the telephone?, often: Teeth or denture problems? and always: Sexual problems? and Tiredness or fatigue? Have you fallen 2 or more times in the past year?: No Are you afraid of falling?: No Are you a smoker?: no During the past 4 weeks, how many drinks of wine, beer, or other alcoholic beverages did you have?: no alcohol at all Do you exercise for about 20 minutes 3 or more times a week?: no, I usually do not exercise this much Have you been given information to help with the following?: yes: Hazards in your house that might hurt you? and yes: Keeping track of your medications? How often do you have trouble taking medicines the way you have been told to take them?: I do not have to take medicine How confident are you that you can control & manage most of your health problems?: not very confident What is your race?: White Activity of Daily Living Bathing - sponge bath, tub bath or shower: receives help in bathing more than one body part (or not bathed) Dressing - getting clothes from closets & drawers, including inner/outer garments & fasteners.: receives help getting clothes or getting dressed, or stays undressed Toileting - going to the 'toilet room' for urine/bowel elimination & cleaning s elf/arranging clothes: receives help going to toilet room, cleaning self or arranging clothes Transfer: moves in & out of bed and chair without help (may use support object) Continence: has occasional 'accidents' Feeding: feeds self without help Total Score: 2 Information obtained from: informant Using telephone: needs assistance Traveling: dependent Shopping: dependent Preparing meals: dependent Housework: dependent Taking medicine: dependent Managing money: dependent PHQ-9 Over the last 2 weeks, how often have you been bothered by any of the following problems? 1. Little interest or pleasure in doing things: not at all 2. Feeling down, depressed, or hopeless: not at all 3. Trouble falling or staying asleep, or sleeping too much: not at all 4. Feeling tired or having little energy: more than half the days 5. Poor appetite or overeating: not at all 6. Feeling bad about yourself - or that you are a failure or have let yourself or your family down: not at all 7. Trouble concentrating on things, such as reading the newspaper or watching television: not at all 8. Moving or speaking so slowly that other people could have noticed. Or the opposite - being so fidgety or restless that you have been moving around a lot more than usual: not at all 9. Thoughts that you would be better off or of hurting yourself in some way: not at all Total score: 2 Depression Screening Interpretation: Negative Source: Developed by Drs. Lucian Garcia, Claudia Diaz, Edi Moore and colleagues, with an educational brian from [employer]. Review of Systems Const All systems reviewed & are unremarkable except as noted in HPI and below Physical Exam Vital Signs: Last Vital Signs BP 100/74 10/21/22 09:16 BMI result Body Mass Index 44.8 Const General: no acute distress Eyes General: appearance normal, both eyes and all related structures Resp Effort & Inspection: normal respiratory effort and able to speak in complete sentences Cardio Other: S1 S2 Neuro General: moves all extremities Psych Mental Status: mental status grossly normal Assessment & Plan Assessment & Plan (1) Medicare annual wellness visit, initial: Code(s): Z00.00 - Encounter for general adult medical examination without abnormal findings (2) Hypertension, essential: Code(s): I10 - Essential (primary) hypertension (3) Prader-Willi syndrome: Comment: Patient has developmental disorder secondary to Prader Willi Syndrome Code(s): Q87.11 - Prader-Willi syndrome (4) Iron deficiency: Code(s): E61.1 - Iron deficiency (5) Crohn's disease: Code(s): K50.90 - Crohn's disease, unspecified, without complications (6) Anemia: Code(s): D64.9 - Anemia, unspecified (7) Obesity: Code(s): E66.9 - Obesity, unspecified (8) Foul smelling urine: Code(s): R82.90 - Unspecified abnormal findings in urine (9) Vaginal irritation: Code(s): N89.8 - Other specified noninflammatory disorders of vagina Plan Patient is overdue for her regular follow-up I see that her blood pressure is running 100/74 Staff member tells me that it is running around 130 at her residence We will book and other appointment she is also due for physical examination they are to bring the blood pressure monitor along if blood pressure is running that low I will stop her atenolol. She is currently on 25 mg of atenolol. Patient is having recurrent emergency room visits because of PICA Continued to have vaginal irritation, stop tell me that patient is hypersexual and continue to irritate her genitalia Due for labs order placed Due for OBGYN visit Orders: Orders Comprehensive Met. Panel Today D64.9 - Anemia, unspecified, E61.1 - Iron deficiency, E66.9 - Obesity, unspecified, I10 - Essential (primary) hypertension, K50.90 - Crohn's disease, unspecified, without complications, Q87.11 - Prader-Willi syndrome LDL Cholesterol Direct Today D64.9 - Anemia, unspecified, E61.1 - Iron deficiency, E66.9 - Obesity, unspecified, I10 - Essential (primary) hypertension, K50.90 - Crohn's disease, unspecified, without complications, Q87.11 - Prader-Willi syndrome TSH reflex Free T4 Today D64.9 - Anemia, unspecified, E61.1 - Iron deficiency, E66.9 - Obesity, unspecified, I10 - Essential (primary) hypertension, K50.90 - Crohn's disease, unspecified, without complications, Q87.11 - Prader-Willi syndrome Complete Blood Count Auto Diff Today D64.9 - Anemia, unspecified, E61.1 - Iron deficiency, E66.9 - Obesity, unspecified, I10 - Essential (primary) hypertension, K50.90 - Crohn's disease, unspecified, without complications, Q87.11 - Prader-Willi syndrome UA CC w/rflx Micro + Cult Today R82.90 - Unspecified abnormal findings in urine Referrals [facility] Referral N89.8 - Other specified noninflammatory disorders of vagina Quality Reporting (2019) Depression/Bipolar (159/160/161/177) PHQ-9: Total score: 2 Coding Level of Care Code Medicare First (G0438) Est Pt Level 4 (31992) Diagnoses Medicare annual wellness visit, initial Z00.00 Hypertension, essential I10 Prader-Willi syndrome Q87.11 Iron deficiency E61.1 Crohn's disease K50.90 Anemia D64.9 Obesity E66.9 Foul smelling urine R82.90 Vaginal irritation N89.8 CPT Codes Advance Care Planning - Time spent: 1-15 minutes, not on file ([id number]) Advance Care Planning Advance Care Planning discussion: Completed/Scanned Forms completed: SUMA Time spent: 1-15 minutes, not on file
[2022-10-21 09:16] VITALS: BP 100/74; BMI 44.8
== END 2022-10-21 10:32 | disposition home or self-care (01) ==
PROVIDERS: Visit Provider Internal Medicine
DX: Z00.00 Encounter for general adult medical examination without abnormal findings (principal); I10 Essential (primary) hypertension; Z68.41 Body mass index [BMI] 40.0-44.9, adult; E66.01 Morbid (severe) obesity due to excess calories; K50.90 Crohn's disease, unspecified, without complications; Q87.11 Prader-Willi syndrome; E61.1 Iron deficiency; D64.9 Anemia, unspecified; R82.90 Unspecified abnormal findings in urine; N89.8 Other specified noninflammatory disorders of vagina
CPT/HCPCS: 1124F; G0438

== ENCOUNTER 2022-10-21 09:41 | Outpatient (REF) | payer MEDICARE, MEDICAID, SELFPAY ==
[2022-10-21 13:07] LABS: Appearance Urine Clear; Color Urine Yellow; Glucose Urine UA Negative (Negative); Leukocyte Esterase Urine Trace (Negative); Nitrite Urine Negative (Negative); Specific Gravity - Urine 1.015 (1.005-1.025); UMIC TRIGGER UACC YES; Urine Blood Negative (Negative); Urine Ketones Negative (Negative); Urine Protein 30 (1+) mg/dL (Neg-Trace)
[2022-10-21 13:09] LABS: Bacteria Urine None Seen (None Seen); Hyaline Casts Urine 0-2 /LPF (0-2); RBC Urine 0-2 /HPF (0-2); UACC Culture Trigger YES
[2022-10-21 13:13] LABS: MANUAL DIFF FLAG NO
[2022-10-21 13:37] LABS: Basophils Percent Auto 0.4 % (0-2); Eosinophils Absolute Auto 0.1 X10*3/uL (0.0-0.4); Hematocrit 42.9 % (37.0-47.0); Hemoglobin 13.5 g/dl (12.0-16.0); Imm Gran Abs Auto 0.02 X10*3/uL (0.00-0.03); Imm Gran Pct Auto 0.4 % (0.0-0.4); Lymphocytes Absolute Auto 1.1 X10*3/uL (1.2-4.9); Mean Corpuscular HGB Conc 31.5 g/dl (31.0-35.0); Mean Corpuscular Hemoglobin 27.8 pg (27.0-33.0); Mean Corpuscular Volume 88.5 fL (80.0-98.0); Mean Platelet Volume 11.8 fL (9.4-12.3); Monocytes Absolute Auto 0.3 X10*3/uL (0.1-1.2); Monocytes Percent Auto 6.8 % (2-11); Neutrophils Absolute Auto 3.1 x10*3/uL (2.0-8.3); Neutrophils Percent Auto 66.4 % (45-73); Platelet Count 234 X10*3/uL (160-400); Red Blood Count 4.85 X10*6/uL (4.20-5.50); Red Cell Distribution Width 14.6 % (11.0-16.0); White Blood Count 4.7 X10*3/uL (4.8-10.8)
[2022-10-21 13:55] LABS: Alanine Aminotransferase 51 U/L (0-31); Albumin Level 4.2 g/dL (3.5-5.0); Alkaline Phosphatase 69 U/L (39-117); Anion Gap 12 (12-20); Aspartate Amino Transferase 34 U/L (5-31); Bilirubin Total 0.5 mg/dL (0.0-1.0); Blood Urea Nitrogen 19 mg/dL (9-16); Carbon Dioxide 31 mmol/L (22-29); Chloride 102 mmol/L (96-108); Estimated Glomerular Filt Rate > 60; Glucose Random 96 mg/dL (60-115); Potassium 4.8 mmol/L (3.3-5.1); Sodium 140 mmol/L (135-145)
[2022-10-21 14:13] LABS: TSH reflex Free T4 0.43 uIU/mL (0.32-4.0)
[2022-10-23 03:58] LABS: LDL Cholesterol Direct 163 mg/dL (<100)
== END 2022-10-21 09:42 | disposition home or self-care (01) ==
LOC: HO.HMGCLDS 09:41
PROVIDERS: PCP Internal Medicine; Visit Provider Internal Medicine
DX: E61.1 Iron deficiency (principal); I10 Essential (primary) hypertension; K50.90 Crohn's disease, unspecified, without complications; Q87.11 Prader-Willi syndrome; R82.90 Unspecified abnormal findings in urine
CPT/HCPCS: 36415; 80053; 81001; 81003; 83721; 84443; 85025; 87086

== ENCOUNTER 2022-11-04 14:59 | Outpatient (REF) | payer MEDICARE, MEDICAID, SELFPAY | END 2022-11-04 15:00 | disposition home or self-care (01) | LOC: HO.LNP 14:59 | PROVIDERS: PCP Internal Medicine; Visit Provider Advanced Practice Midwife | DX: N89.8 Other specified noninflammatory disorders of vagina (principal); B37.49 Other urogenital candidiasis; Q87.11 Prader-Willi syndrome; L03.116 Cellulitis of left lower limb; R60.9 Edema, unspecified | CPT/HCPCS: 99202 ==

== ENCOUNTER 2022-11-04 14:59 | Outpatient (AMB) | payer MEDICARE, MEDICAID, SELFPAY ==
--- NOTE | 2022-11-04 15:04 | A.OFFVIS_ITS ---
Intake Vital Signs 11/04/22 15:06 Height 5 ft Weight 227 lb BMI 44.3 BP 130/80 Intake Visit Reasons: New patient Annual Fuller Brush Worker Required: No Information Interpreted: non-clinical & clinical Vending Service Technician: Vending Service Technician Present (Aidyn) Allergies silver [From TEGADERM AG MESH] Allergy (Unknown, Verified 11/04/22 15:11) RASH transparent dressing Allergy (Unknown, Verified 11/04/22 15:11) skin irritation sensitivity haloperidol [From HALDOL] Adverse Reaction (Intermediate, Verified 11/04/22 15:11) UNKNOWN Tegaderm CHG dressing: Allergy (Unknown, Uncoded 11/04/22 15:11) skin irritation Haldol Adverse Reaction (Unknown, Uncoded 11/04/22 15:11) paradoxical effect Medication List - Last Reconciled 11/04/22 by Elizabeth Castle CNM acetaminophen 325 mg PO BID PRN 30 days atenolol 25 mg PO DAILY 90 days calcium citrate-vitamin D3 315 mg-5 mcg (200 unit) (Calcium Citrate + D) 1 tab PO DAILY 90 days cholecalciferol (vitamin D3) (Vitamin D3) 50 mcg PO DAILY 90 days diphenhydramine HCl (Benadryl) 25 mg PO TID PRN famotidine 40 mg PO DAILY ferrous sulfate 325 mg PO BID fluconazole (Diflucan) 150 mg PO Q3D 2 doses fluconazole (Diflucan) 150 mg PO Q3D 2 doses fluoxetine 20 mg PO DAILY fluticasone propionate 50 mcg/actuation 1 spray intranasal BEDTIME 30 days folic acid 1 mg PO DAILY 90 days hydroxyzine HCl 25 mg PO BID lorazepam 1 mg PO BID PRN mercaptopurine 50 mg PO DAILY miconazole nitrate (Monistat 3) 1 appful vaginal BEDTIME 3 days multivitamin 1 tab PO DAILY naltrexone 50 mg PO DAILY olanzapine (Zyprexa) 5 mg PO BEDTIME omega 0-ffh-ocf-fish oil 300-1,000 mg 1 cap PO TID 90 days polyethylene glycol 3350 8.5 grams PO DAILY 30 days silver sulfadiazine 1% (Silvadene) 1 appl topical DAILY PRN 30 days sodium chloride 0.65% (Saline Mist) 1 spray intranasal BID PRN 30 days ustekinumab (Stelara) 90 mg subcut Q4W Is last menstrual period known: No (In September but not sure the date) Post menopausal: No HPI New patient Annual HPI Details Patient is brought here for an exam by 2 care providers who are with her from her home facility who are here to keep her safe from her compulsive behaviors of PICA and scratching at least during the exam. They held her hands well being examined to facilitate exam which the patient did allow. Patient has a history of compulsive scratching and also PICA and eating all things that she it can have access to as well as putting objects in her vagina and also scratching compulsively. She has been treated multiple times by other providers. Staff voiced challenges with prescription of creams because of the patient's inability to manage use of it safely which is completely understand able and so it may only be available to her when a nurse can apply the cream. [facility] Medical History Acute constipation Anemia Anxiety Autistic disorder Chronic constipation Colitis Crohn's disease Developmental delay, mild Hypertension, essential Iron deficiency Mood disorder Morbid obesity KARLA (obstructive sleep apnea) Pain of left lower extremity Pica in adults Prader-Willi syndrome PTSD (post-traumatic stress disorder) Somnolence, daytime Swelling of left lower extremity Vitamin D deficiency Surgical History History of abdominal surgery History of throat surgery Family History Father No problems noted. Mother No problems noted. Social History Household Members: Other Housing: Other Do you presently have visiting nurse or other home services: Yes Alcohol intake: never Patient Tobacco Use Status: Never used Tobacco e-Cigarette/Vaping Use: Never Used Second Hand Smoke Exposure: No service: No Current occupational status: disabled Cognitive needs: No Hearing needs: No Vision needs: Yes Female Reproductive History Menstrual Duration of menses: <3 days control method: none Total pregnancies: 0 Physical Exam Vital Signs: Last Vital Signs BP 130/80 11/04/22 15:06 BMI result Body Mass Index 44.3 Const Other: Patient has severe challenges and PICA related to her syndromes patient has abundant oral mucous and foam around mouth. Sits forward in a stooped though is able to sit up a little bit straighter when issue was discussed. Breast exam within normal limits patient is edematous over the entire body probably consistent with her syndromes . Patient being very well cared for by 2 attendant care providers who held her hands to prevent grasping at things because of her PICA. During the exam. Her mons pubis and labia are extremely swollen consistent with cellulitis and inflammation that possibly could be candidal in origin as well vagina is very bright pink possibly consistent with Hanh and inflammation from scratching as well thin white discharge noted unable to visualize patient cervix however I was able to palpate her cervix. Patient tolerated the exam fairly well. Discussing care with patient and her care providers who came with her. General: other Other: See above Assessment & Plan Assessment & Plan (1) Vaginal irritation: Code(s): N89.8 - Other specified noninflammatory disorders of vagina (2) Candidiasis of genitalia: Code(s): B37.49 - Other urogenital candidiasis (3) Prader-Willi syndrome: Comment: Patient has developmental disorder secondary to Prader Willi Syndrome Code(s): Q87.11 - Prader-Willi syndrome (4) Cellulitis: Comment: Of tissue surrounding mons pubis from scratching. Code(s): L03.90 - Cellulitis, unspecified Qualifiers: Laterality: left Site of cellulitis: extremity Site of cellulitis of extremity: lower extremity Qualified Code(s): L03.116 - Cellulitis of left lower limb (5) Edema: Code(s): R60.9 - Edema, unspecified Plan Discussed in general that her irritation and the situation is complex and the scratching which is in some ways compulsive perpetuate the problem and that while there may be some fungal component to it and will treat that not scra tching is the harris because that enflames the skin vagina and contributes to cellulitis. Will offer refills on the Monistat and also on Diflucan and strongly encouraged the patient to not scratch which apparently has been encouraged and is encouraged constantly but is difficult to maintain additionally discussed use of cotton underwear and allowing air trying to her vulva and says it is staff a tells me that they ensure that she is always well dried. Orders: Orders Bacterial Vaginosis Panel Today N89.8 - Other specified noninflammatory disorders of vagina CT NG by PCR Today N89.8 - Other specified noninflammatory disorders of vagina Medications: New miconazole nitrate 2% (Miconazole-7) Still be applied by staff when available when necessary. 1 appful vaginal BEDTIME 7 days 45 grams 3RF miconazole nitrate 2% (Miconazole-7) To be applied by staff when available when necessary. 1 appful vaginal BEDTIME 7 days PRN 45 grams 3RF for vag yeast inf symptoms Changed From fluconazole (Diflucan) may repeat second dose 72 hrs after first dose if symptoms persist 150 mg PO Q3D 2 tabs 5RF To fluconazole (Diflucan) may repeat second dose 72 hrs after first dose if symptoms persist 150 mg PO Q3D PRN 2 tabs 5RF fOr severe itching Refilled fluconazole (Diflucan) may repeat second dose 72 hrs after first dose if symptoms persist 150 mg PO Q3D 2 tabs 5RF Coding Level of Care Code New Pt Level 4 (94457) Diagnoses Vaginal irritation N89.8 Candidiasis of genitalia B37.49 Prader-Willi syndrome Q87.11 Cellulitis L03.116 Laterality: left Site of cellulitis: extremity Site of cellulitis of extremity: lower extremity Edema R60.9 Time Spent (min) 55 Comment face to face w pt and her ground support equipment fitter,examining, making plan and communicating plan of t
[2022-11-04 15:06] VITALS: BP 130/80; BMI 44.3
== END 2022-11-05 12:51 | disposition home or self-care (01) ==
LOC: HO.HWS 14:59
PROVIDERS: PCP Internal Medicine; Visit Provider Advanced Practice Midwife
DX: N89.8 Other specified noninflammatory disorders of vagina (principal); B37.49 Other urogenital candidiasis; Q87.11 Prader-Willi syndrome; L03.116 Cellulitis of left lower limb; R60.9 Edema, unspecified
CPT/HCPCS: 99204

== ENCOUNTER 2022-11-05 16:21 | Outpatient (REF) | payer MEDICARE, MEDICAID, SELFPAY ==
[2022-11-06 05:27] LABS: CT PCR NOT DETECTED (Not Detect.); NG PCR NOT DETECTED (Not Detect.)
[2022-11-06 11:48] LABS: BV Int Neg Control Negative (Negative); BV Int Pos Control Positive (Positive)
== END 2022-11-05 16:22 | disposition home or self-care (01) ==
LOC: HO.LNP 16:21
PROVIDERS: Visit Provider Advanced Practice Midwife
DX: N89.8 Other specified noninflammatory disorders of vagina (principal)
CPT/HCPCS: 0353U; 87480; 87510; 87660

== ENCOUNTER 2022-11-17 10:34 | Outpatient (AMB) | payer MEDICARE, MEDICAID, SELFPAY ==
[2022-11-17 10:41] VITALS: BP 124/82; PULSE 61; O2SAT 94; BMI 44.7
--- NOTE | 2022-11-17 10:41 | A.OFFVIS_ITS ---
Intake Vital Signs 11/17/22 10:41 Height 5 ft Weight 229 lb BMI 44.7 BP 124/82 Blood Pressure Location Lt radial Position Sitting Pulse 61 Pulse Source Pulse Oximeter Pulse Oximetry (%) 94 Oxygen Delivery Method Room Air Intake Visit Reasons: Obstructive sleep apnea follow-up Intake Note: pt is here for follow up and states she is not using c-pap or oxygen, but tries deep breathing exercises, and the BACKHAUL DRIVER is wondering if the adnoids were removed, would this help in her situation? Parts Delivery Driver Required: No Allergies silver [From TEGADERM AG MESH] Allergy (Unknown, Verified 11/17/22 11:02) RASH transparent dressing Allergy (Unknown, Verified 11/17/22 11:02) skin irritation sensitivity haloperidol [From HALDOL] Adverse Reaction (Intermediate, Verified 11/17/22 11:02) UNKNOWN Tegaderm CHG dressing: Allergy (Unknown, Uncoded 11/17/22 11:02) skin irritation Haldol Adverse Reaction (Unknown, Uncoded 11/17/22 11:02) paradoxical effect Medication List - Last Reconciled 11/17/22 by Paola Grove MD acetaminophen 325 mg PO BID PRN 30 days atenolol 25 mg PO DAILY 90 days calcium citrate-vitamin D3 315 mg-5 mcg (200 unit) (Calcium Citrate + D) 1 tab PO DAILY 90 days cholecalciferol (vitamin D3) (Vitamin D3) 50 mcg PO DAILY 90 days diphenhydramine HCl (Benadryl) 25 mg PO TID PRN famotidine 40 mg PO DAILY ferrous sulfate 325 mg PO BID fluconazole (Diflucan) 150 mg PO Q3D 2 doses fluoxetine 20 mg PO DAILY fluticasone propionate 50 mcg/actuation 1 spray intranasal BEDTIME 30 days folic acid 1 mg PO DAILY 90 days hydroxyzine HCl 25 mg PO BID lorazepam 1 mg PO BID PRN mercaptopurine 50 mg PO DAILY miconazole nitrate (Monistat 3) 1 appful vaginal BEDTIME 3 days multivitamin 1 tab PO DAILY naltrexone 50 mg PO DAILY olanzapine (Zyprexa) 5 mg PO BEDTIME omega 8-qbo-isi-fish oil 300-1,000 mg 1 cap PO TID 90 days polyethylene glycol 3350 8.5 grams PO DAILY 30 days silver sulfadiazine 1% (Silvadene) 1 appl topical DAILY PRN 30 days sodium chloride 0.65% (Saline Mist) 1 spray intranasal BID PRN 30 days ustekinumab (Stelara) 90 mg subcut Q4W Do you need a note to return to daycare/school/sports/work: No HPI Obstructive sleep apnea follow-up HPI Details NALDO IS 27 YEARS OLD FEMALE A CASE OF PRADER-WILLI SYNDROME, WITH MORBID OBESITY AND DEVELOPMENTAL DISORDER. SHE DOES HAVE OBSTRUCTIVE SLEEP APNEA WITH NOCTURNAL HYPOXEMIA. SHE WAS STARTED ON BIPAP. . AND OXYGEN SUPPLEMENTATION AT NIGHT UNFORTUNATELY DUE TO HER PSYCHIATRIC DISORDER, SHE BITES ON THE MASK WELL ON OXYGEN AND CANNOT USE EITHER 1 OF THEM. SHE IS TRYING TO SLEEP IN LATERAL POSITION. ACCORDING TO THE STAFF, SHE SLEEPS WELL, AND HAS ONLY MINIMAL DAYTIME SOMNOLENCE, WEIGHT HAS NOT CHANGED MUCH. FORMERLY [facility] Medical History Acute constipation Anemia Anxiety Autistic disorder Chronic constipation Colitis Crohn's disease Developmental delay, mild Hypertension, essential Iron deficiency Mood disorder Morbid obesity KARLA (obstructive sleep apnea) Pain of left lower extremity Pica in adults Prader-Willi syndrome PTSD (post-traumatic stress disorder) Somnolence, daytime Swelling of left lower extremity Vitamin D deficiency Surgical History History of abdominal surgery History of throat surgery Family History Father No problems noted. Mother No problems noted. Social History Household Members: Other Housing: Other Do you presently have visiting nurse or other home services: Yes Alcohol intake: never Patient Tobacco Use Status: Never used Tobacco e-Cigarette/Vaping Use: Never Used Second Hand Smoke Exposure: No service: No Current occupational status: disabled Cognitive needs: No Hearing needs: No Vision needs: Yes Review of Systems Const All systems reviewed & are unremarkable except as noted in HPI and below Reports snoring Eyes Reports no additional complaints ENT Denies epistaxis, Reports nasal congestion (Mild intermittent) and Denies nasal discharge Card Denies chest pain, Denies irregular heart rhythm and Denies leg edema Resp Denies cough, Reports snoring and Denies wheezing GI Reports constipation, Reports heartburn (GERD symptoms being treated,) and Reports other (History of Crohn's disease) Reports no additional complaints Musc Reports no additional complaints Skin/Breast Reports system reviewed and no additional complaints, except as documented Neuro Reports no additional complaints Psych Reports mood swings and Reports other (prader-Willi Syndrome ) Endo Reports no additional complaints Lyndon/Lymph Reports other (h/o anemia ) Aller/Immun Denies wheezing Physical Exam Vital Signs: Last Vital Signs Pulse 61 11/17/22 10:41 BP 124/82 11/17/22 10:41 Pulse Ox 94 11/17/22 10:41 Oxygen Delivery Method Room Air 11/17/22 10:41 BMI result Body Mass Index 44.7 Const Other: This patient is grossly obese with a round face General: comfortable, no acute distress, alert and awake Orientation/consciousness: patient oriented x3 HEENT Head: Yes normal to inspection General nose exam: No nasal polyps present and No nasal discharge present Face and sinus: Yes sinuses nontender Mouth: oropharynx abnormals (Oropharynx is narrow, Mallampati class 4) Throat: Yes posterior oropharynx normal Eyes General: appearance normal, both eyes and all related structures Neck Neck: Yes normal visual inspection, Yes no lymphadenopathy, Yes trachea midline, Yes no JVD and Yes other (Neck size 15-1/2 inch) Thyroid: Thyroid normal Chest Chest palpation & inspection: normal inspection of the chest, normal palpation of entire chest wall and no tenderness Resp Effort & Inspection: normal respiratory effort and no cough Auscultation: clear to auscultation bilaterally, no crackles and no wheezes Cardio Palpation: normal PMI Rate: regular rate Rhythm: regular rhythm Heart sounds: no gallops and no murmurs Peripheral pulses: Peripheral pulses 2+ throughout GI Palpation (GI): Soft to palpation, nontender, No hepatosplenomegaly present, no masses and Other GI palpation findings present (Abdomen is moderately obese and protuberant) Auscultation: normal bowel sounds Back/Spine/Pelvis Thoracic/Lumbar Spine: thoracic and lumbar spine normal to inspection Skin General skin exam: no rashes or lesions noted Neuro General: patient oriented x3 and no focal motor deficits Cranial nerves: Yes CN's II-XII intact bilaterally Extrem General: Yes normal to inspection, Yes no clubbing, cyanosis or edema and Yes no calf tenderness Psych Appearance: grossly normal and well kempt Speech and movement: Normal speech and movement present Assessment & Plan Assessment & Plan (1) Morbid obesity: Comment: Patient has underlying developmental disorder, She is morbidly obese, with typical round face and narrow oropharynx, Mallampati class 4. Difficult for her to lose weight. Code(s): E66.01 - Morbid (severe) obesity due to excess calories (2) KARLA (obstructive sleep apnea): Comment: SHE IS A CONFIRMED CASE OF SEVERE OBSTRUCTIVE SLEEP APNEA. CPAP TITRATION STUDY DETERMINED THAT SHE NEEDS BY BI-LEVEL CPAP WITH PRESSURE SETTING 20/16 CM. SHE IS NOT ABLE TO USE THE CPAP SHE BITES ON THE MASK AND EATS THE PLASTIC CHIPS, SIMILARLY SHE ALSO BITES ON THE NASAL CANNULA AND CANNOT USE THE OXYGEN. UNDER THE CIRCUMSTANCES THERE IS NO OTHER PRACTICAL SOLUTION AT THIS TIME. HE VENTRALLY AT SOME POINT SHE MAY NEED PERMANENT TRACHEOSTOMY FOR TREATMENT OF HER KARLA. I WILL CHECK OR EVERY 6 MINUTES. Code(s): G47.33 - Obstructive sleep apnea (adult) (pediatric) (3) Prader-Willi syndrome: Comment: THIS IS A CONGENITAL, DISORDER, AND CAUSE OF HER MORBID OBESITY, WITH DEVELOPMENTAL DELAY / INTELLECTUAL DISABILITY Code(s): Q87.11 - Prader-Willi syndrome Coding Level of Care Code Est Pt Level 3 (91052) Diagnoses Morbid obesity E66.01 KARLA (obstructive sleep apnea) G47.33 Prader-Willi syndrome Q87.11
== END 2022-11-17 11:04 | disposition home or self-care (01) ==
PROVIDERS: PCP Internal Medicine; Visit Provider Internal Medicine
DX: Q87.11 Prader-Willi syndrome (principal); G47.33 Obstructive sleep apnea (adult) (pediatric)
CPT/HCPCS: 99213

== ENCOUNTER → 2022-11-17 10:34 | Outpatient (BNVA) | payer MEDICARE, MEDICAID, SELFPAY | PROVIDERS: PCP Internal Medicine; Visit Provider Internal Medicine | DX: G47.33 Obstructive sleep apnea (adult) (pediatric) (principal); Q87.11 Prader-Willi syndrome; E66.01 Morbid (severe) obesity due to excess calories; Z68.41 Body mass index [BMI] 40.0-44.9, adult | CPT/HCPCS: 99212 ==

== ENCOUNTER 2023-01-20 12:49 | Outpatient (AMB) | payer MEDICARE, MEDICAID, SELFPAY ==
--- NOTE | 2023-01-20 12:55 | MHC.PC.OV ---
Vital Signs 01/20/23 12:56 Height 5 ft Weight 234 lb 6 oz BMI 45.8 BP 122/78 Blood Pressure Location Rt brachial Position Sitting Pulse 60 Pulse Source Pulse Oximeter Pulse Oximetry (%) 95 Oxygen Delivery Method Room Air Intake Visit Reasons: Annual PE Allergies silver [From TEGADERM AG MESH] Allergy (Unknown, Verified 01/20/23 12:56) RASH transparent dressing Allergy (Unknown, Verified 01/20/23 12:56) skin irritation sensitivity haloperidol [From HALDOL] Adverse Reaction (Intermediate, Verified 01/20/23 12:56) UNKNOWN Tegaderm CHG dressing: Allergy (Unknown, Uncoded 11/17/22 11:02) skin irritation Haldol Adverse Reaction (Unknown, Uncoded 11/17/22 11:02) paradoxical effect Medication List - Last Reconciled 01/20/23 by Galen Xie MD acetaminophen 325 mg PO BID PRN 30 days atenolol 25 mg PO DAILY 90 days calcium citrate-vitamin D3 315 mg-5 mcg (200 unit) (Calcium Citrate + D) 1 tab PO DAILY 90 days cholecalciferol (vitamin D3) (Vitamin D3) 50 mcg PO DAILY 90 days diphenhydramine HCl (Benadryl) 25 mg PO TID PRN famotidine 40 mg PO DAILY ferrous sulfate 325 mg PO BID fluconazole (Diflucan) 150 mg PO Q3D 2 doses fluoxetine 20 mg PO DAILY fluticasone propionate 50 mcg/actuation 1 spray intranasal BEDTIME 30 days folic acid 1 mg PO DAILY 90 days hydroxyzine HCl 25 mg PO BID lorazepam 1 mg PO BID PRN mercaptopurine 50 mg PO DAILY miconazole nitrate (Monistat 3) 1 appful vaginal BEDTIME 3 days multivitamin 1 tab PO DAILY naltrexone 50 mg PO DAILY olanzapine (Zyprexa) 5 mg PO BEDTIME omega 6-yol-rzy-fish oil 300-1,000 mg 1 cap PO TID 90 days polyethylene glycol 3350 8.5 grams PO DAILY 30 days silver sulfadiazine 1% (Silvadene) 1 appl topical DAILY PRN 30 days sodium chloride 0.65% (Saline Mist) 1 spray intranasal BID PRN 30 days ustekinumab (Stelara) 90 mg subcut Q4W Tobacco use date assessed: 01/20/23 Dental Screening Dental Screen Date: 01/20/23 Did you have a dental visit in the last 12 months?: Yes Did you have a dental problem in the last 6 months where you did not have access to dental care?: No Was dental information given to patient?: Patient has dentist HPI Annual PE HPI Details Patient is 27-year-old female came in today for physical examination Patient recently swallowed a stable and was taken to [facility] where it was removed with the help of bronchoscopy She is doing okay there is no there is no shortness of breath Patient have chronic suprapubic irritation due to chronic scratching, I have sent Lotrisone cream that may be used at night before bedtime She was evaluated by drafting technician who created referral for dermatology evaluation as well. Her lipids are elevated I am starting her on rosuvastatin 5 mg Labs needs to be repeated in 2 months Breast exam was done today no lumps were found [facility]LY [facility] Medical History KARLA (obstructive sleep apnea) Somnolence, daytime Morbid obesity Pain of left lower extremity Swelling of left lower extremity Hypertension, essential Mood disorder Developmental delay, mild Vitamin D deficiency Anemia Iron deficiency PTSD (post-traumatic stress disorder) Anxiety Autistic disorder Chronic constipation Acute constipation Colitis Crohn's disease Prader-Willi syndrome Pica in adults Surgical History History of abdominal surgery History of throat surgery Family History Father No problems noted. Mother No problems noted. Social History Household Members: Other Housing: Other Do you presently have visiting nurse or other home services: Yes Alcohol intake: never Patient Tobacco Use Status: Never used Tobacco e-Cigarette/Vaping Use: Never Used Second Hand Smoke Exposure: No service: No Current occupational status: disabled Cognitive needs: No Hearing needs: No Vision needs: Yes Questionnaire Thrive Questionnaire Date Thrive assessed: 05/23/21 AUDIT C Alcohol Use Questionnaire (AUDIT-C) 1. How often do you have a drink containing alcohol?: Never 3. How often do you have six or more drinks on one occasion?: Never Total Score: 0 Score Reviewed/Action Taken: Yes BEVERLEY-7 AMB Questionnaire BEVERLEY-7 Date BEVERLEY - 7 assessed: 05/23/21 Source: Developed by Drs. Lucian Garcia, Claudia Diaz, Edi Moore and colleagues, with an educational brian from [employer]. Review of Systems Const Denies chills, Denies fever(s) and Denies headache(s) ENT Denies headache(s), Denies nasal discharge, Denies nasal obstruction, Denies odynophagia and Denies sinus pain Card Denies chest pain at rest and Denies chest pain with activity Resp Denies hemoptysis GI Denies diarrhea, Denies odynophagia, Denies vomiting and Denies hematemesis Reports as per HPI Musc Denies abnormal gait Skin/Breast Reports as per HPI Neuro Denies Neuro-related abnormal movements, Denies Abnormal speech present, Denies abnormal gait, Denies headache(s) and Denies Sensory deficit (Neuro) Psych Denies mood swings and Denies paranoia Endo Reports as per HPI Lyndon/Lymph Reports as per HPI Aller/Immun Reports as per HPI Physical exam (Primary Care) Vital Signs: Last Vital Signs Pulse 60 01/20/23 12:56 BP 122/78 01/20/23 12:56 Pulse Ox 95 01/20/23 12:56 Oxygen Delivery Method Room Air 01/20/23 12:56 BMI result Body Mass Index 45.8 Tobacco/Smoking Status: Tobacco use Status Tobacco use date assessed 01/20/23 01/20/23 12:59 Patient Tobacco Use Status Never used Tobacco 01/20/23 12:59 e-Cigarette/Vaping Use Never Used 01/20/23 12:59 Thrive Assessment: Date of Thrive Assessment Date Thrive assessed 05/23/21 01/20/23 12:59 Const General: cooperative, comfortable and no acute distress Orientation/consciousness: patient oriented x3 HENMT Head: Yes normocephalic and Yes atraumatic Eyes General: appearance normal, both eyes and all related structures Pupils: Equal, round and reactive pupils present EOM: EOMs intact bilaterally Neck Neck: Yes supple and No lymphadenopathy Thyroid: Thyroid normal Lymphatic: no lymphadenopathy noted Chest Breast/axilla palpation: normal palpation of the breasts Resp Effort & Inspection: normal respiratory effort and able to speak in complete sentences Auscultation: clear to auscultation bilaterally Cardio Heart sounds: S1 normal heart sound present and S2 normal heart sound present GI Palpation (GI): Soft to palpation and nontender Auscultation: normal bowel sounds Skin Other: Chronic skin irritation rash suprapubic due to chronic scratching, no signs of cellulitis General skin exam: elasticity normal and turgor normal Neuro General: patient oriented x3 and gait normal Cranial nerves: Yes Equal, round and reactive pupils present Speech: No Abnormal speech present Sensory Exam: No Sensory deficit (Neuro) Coordination: Romberg test negative Extrem General: Yes normal exam except as noted and No edema Office Procedures Flu Questionnaire Does the patient have a severe egg allergy?: No Does the patient have severe life threatening allergies?: No Does the patient have a fever or illness today?: No Has the patient ever had Guillain-[place] Syndrome?: No Has the patient ever had any past reaction to a flu shot?: No Immunizations flu vacc [id number] 6mos up(PF) 60 mcg(15 mcgx4)/0.5 mL IM syringe Performing Provider: Galen Xie MD Performing Location: [facility] [place], [place] Adult Primary [facility] Administered by: Massiel Arteaga CMA on 01/20/23 13:31 Dose Route Admin Location Dispensed Lot Number Expiration Date [facility] Display Designer 0.5 mL IM Right Deltoid 0.5 mL [id number] 09/26/23 [id number] eVendor Check VIS Given Date VIS Provided VIS Publication Date 01/20/23 Single Vaccine 20 Eligibility Eligibility Date Funding Source Not VFC Eligible 01/20/23 Private Boostrix Tdap 2.5 Lf unit-8 mcg-5 Lf/0.5 mL intramuscular syringe Performing Provider: Galen Xie MD Performing Location: [facility] [place], [place] Adult Primary [facility] Administered by: Massiel Arteaga CMA on 01/20/23 13:34 Dose Route Admin Location Dispensed Lot Number Expiration Date [place] Display Designer 0.5 mL IM Left Deltoid 0.5 mL [id number] 04/08/25 [id number] eVendor Check VIS Given Date VIS Provided VIS Publication Date 01/20/23 Single Vaccine 20 Eligibility Eligibility Date Funding Source Not VFC Eligible 01/20/23 Private Assessment and Plan Assessment & Plan (1) Encounter for general adult medical examination with abnormal findings: Code(s): Z00.01 - Encounter for general adult medical examination with abnormal findings (2) Hypertension, essential: Code(s): I10 - Essential (primary) hypertension (3) Crohn's disease: Code(s): K50.90 - Crohn's disease, unspecified, without complications Qualifiers: Gastrointestinal tract location: large intestine Digestive disease complication type: without complication Qualified Code(s): K50.10 - Crohn's disease of large intestine without complications (4) Prader-Willi syndrome: Comment: Patient has developmental disorder secondary to Prader Willi Syndrome Code(s): Q87.11 - Prader-Willi syndrome (5) Vitamin D deficiency: Code(s): E55.9 - Vitamin D deficiency, unspecified (6) Chronic GERD: Code(s): K21.9 - Gastro-esophageal reflux disease without esophagitis (7) Pica in adults: Code(s): F50.89 - Other specified eating disorder (8) LFT elevation: Code(s): R79.89 - Other specified abnormal findings of blood chemistry (9) Morbid obesity: Comment: Patient has underlying developmental disorder, She is morbidly obese, with typical round face and narrow oropharynx, Mallampati class 4. Difficult for her to lose weight. Code(s): E66.01 - Morbid (severe) obesity due to excess calories (10) Major depression, recurrent: Code(s): F33.9 - Major depressive disorder, recurrent, unspecified Qualifiers: Active/Remission status: currently active Major depression episode severity: moderate Qualified Code(s): F33.1 - Major depressive disorder, recurrent, moderate (11) Toe pain, bilateral: Code(s): M79.674 - Pain in right toe(s); M79.675 - Pain in left toe(s) Plan Patient is 27-year-old female came in today for physical examination Patient recently swallowed a stable and was taken to [facility] where it was removed with the help of bronchoscopy She is doing okay there is no there is no shortness of breath Patient have chronic suprapubic irritation due to chronic scratching, I have sent Lotrisone cream that may be used at night before bedtime She was evaluated by drafting technician who created referral for dermatology evaluation as well. Her lipids are elevated I am starting her on rosuvastatin 5 mg Labs needs to be repeated in 2 months Breast exam was done today no lumps were found Crohn's disease managed by Gastroenterology Psychiatric illness severe depression managed by psychiatry. Patient is morbidly obese she suffers from prior Willi syndrome Orders: Orders Complete Blood Count Auto Diff Today E55.9 - Vitamin D deficiency, unspecified, E66.01 - Morbid (severe) obesity due to excess calories, F33.9 - Major depressive disorder, recurrent, unspecified, F50.89 - Other specified eating disorder, I10 - Essential (primary) hypertension, K21.9 - Gastro-esophageal reflux disease without esophagitis, K50.90 - Crohn's disease, unspecified, without complications, Q87.11 - Prader-Willi syndrome, R79.89 - Other specified abnormal findings of blood chemistry, Z00.01 - Encounter for general adult medical examination with abnormal findings Comprehensive Met. Panel Today E55.9 - Vitamin D deficiency, unspecified, E66.01 - Morbid (severe) obesity due to excess calories, F33.9 - Major depressive disorder, recurrent, unspecified, F50.89 - Other specified eating disorder, I10 - Essential (primary) hypertension, K21.9 - Gastro-esophageal reflux disease without esophagitis, K50.90 - Crohn's disease, unspecified, without complications, Q87.11 - Prader-Willi syndrome, R79.89 - Other specified abnormal findings of blood chemistry, Z00.01 - Encounter for general adult medical examination with abnormal findings LDL Cholesterol Direct Today E55.9 - Vitamin D deficiency, unspecified, E66.01 - Morbid (severe) obesity due to excess calories, F33.9 - Major depressive disorder, recurrent, unspecified, F50.89 - Other specified eating disorder, I10 - Essential (primary) hypertension, K21.9 - Gastro-esophageal reflux disease without esophagitis, K50.90 - Crohn's disease, unspecified, without complications, Q87.11 - Prader-Willi syndrome, R79.89 - Other specified abnormal findings of blood chemistry, Z00.01 - Encounter for general adult medical examination with abnormal findings TSH reflex Free T4 Today E55.9 - Vitamin D deficiency, unspecified, E66.01 - Morbid (severe) obesity due to excess calories, F33.9 - Major depressive disorder, recurrent, unspecified, F50.89 - Other specified eating disorder, I10 - Essential (primary) hypertension, K21.9 - Gastro-esophageal reflux disease without esophagitis, K50.90 - Crohn's disease, unspecified, without complications, Q87.11 - Prader-Willi syndrome, R79.89 - Other specified abnormal findings of blood chemistry, Z00.01 - Encounter for general adult medical examination with abnormal findings Influenza [id number] Immunization Today Z23 - Encounter for immunization TDaP Immunization Today Z23 - Encounter for immunization Referrals Podiatry Referral M79.674 - Pain in right toe(s), M79.675 - Pain in left toe(s) Medications: New rosuvastatin (Crestor) 5 mg PO DAILY 90 tabs 0RF clotrimazole-betamethasone 1-0.05 % 1 appl topical .qhs 45 grams 1RF Apply thin layer suprapubic for 2 weeks 30 days Coding Level of Care Code Est Pt Prev Care [id number]([id number]) Diagnoses Encounter for general adult medical examination with abnormal findings Z00.01 Hypertension, essential I10 Crohn's disease of large intestine without complication K50.10 Gastrointestinal tract location: large intestine Digestive disease complication type: without complication Prader-Willi syndrome Q87.11 Vitamin D deficiency E55.9 Chronic GERD K21.9 Pica in adults F50.89 LFT elevation R79.89 Morbid obesity E66.01 Moderate episode of recurrent major depressive disorder F33.1 Active/Remission status: currently active Major depression episode severity: moderate Toe pain, bilateral M79.674; M79.675
[2023-01-20 12:56] VITALS: BP 122/78; PULSE 60; O2SAT 95; BMI 45.8
== END 2023-01-20 15:34 | disposition home or self-care (01) ==
PROVIDERS: PCP Internal Medicine; Visit Provider Internal Medicine
DX: Z23 Encounter for immunization (principal)
CPT/HCPCS: 90471; 90686; 90715; 99395

== ENCOUNTER 2023-03-08 10:52 | Outpatient (AMB) | payer MEDICARE, MEDICAID, SELFPAY ==
--- NOTE | 2023-03-08 11:12 | MHC.OFFVIS ---
Intake Vital Signs 03/08/23 11:13 Height 5 ft Weight 229 lb 11.547 oz BMI 44.9 Intake Visit Reasons: Crohn's disease, unspecified Intake Note: Patient presents to in office visit today as a new patient for chron's disease. CC: Patient is taking Stelara injections for her Chron's and she is do on 03/25/23 but they do not have a nurse and would to know if we are able to administer it here in the office. Patient with diagnosis of PICA. Room Service Runner Required: No Accompanied by: behavioral technicians Allergies silver [From TEGADERM AG MESH] Allergy (Unknown, Verified 03/08/23 11:21) RASH transparent dressing Allergy (Unknown, Verified 03/08/23 11:21) skin irritation sensitivity haloperidol [From HALDOL] Adverse Reaction (Intermediate, Verified 03/08/23 11:21) UNKNOWN Tegaderm CHG dressing: Allergy (Unknown, Uncoded 11/17/22 11:02) skin irritation Haldol Adverse Reaction (Unknown, Uncoded 11/17/22 11:02) paradoxical effect HPI Crohn's disease, unspecified HPI Details 28 years old female with past medical history of morbid obesity, varicose vein of bilateral extremities, hyperlipidemia, KARLA transaminitis, Prader-Willi syndrome, Pica, obesity, chronic constipation, Crohn's disease, hypertension is here today for initial consultation. Patient was seen by GI specialist for management of Crohn's disease and her provider retired. Patient needs her medications to be refilled and is seeking services says with of. Patient denies any melena, hematochezia, unintentional weight loss or ribbon like stools. Patient denies any dyspepsia, dysphagia or odynophagia. Reports to have history of constipation, using [id number]-[id number] medications to help her move her bowels. Patient is taking famotidine at bedtime. Patient denies having diarrhea any abdominal pain or discomfort. Multiple admissions in the past for ingestion of objects, patient is on monitor with 1:1 staff all the time. [facility] Medical History KARLA (obstructive sleep apnea) Somnolence, daytime Morbid obesity Pain of left lower extremity Swelling of left lower extremity Hypertension, essential Mood disorder Developmental delay, mild Vitamin D deficiency Anemia Iron deficiency PTSD (post-traumatic stress disorder) Anxiety Autistic disorder Chronic constipation Acute constipation Colitis Crohn's disease Prader-Willi syndrome Pica in adults Surgical History History of abdominal surgery History of throat surgery Family History Father No problems noted. Mother No problems noted. Social History Household Members: Other Housing: Other Do you presently have visiting nurse or other home services: Yes Alcohol intake: never Comment: No complaints of headache Patient Tobacco Use Status: Never used Tobacco e-Cigarette/Vaping Use: Never Used Second Hand Smoke Exposure: No service: No Current occupational status: disabled Cognitive needs: No Hearing needs: No Vision needs: Yes Review of Systems Const Denies weight gain and Denies weight loss ENT Reports no additional complaints, Denies dysphagia and Denies odynophagia Card Reports no additional complaints Resp Reports no additional complaints GI Denies abdominal pain, Denies belching, Denies melena, Denies bloating, Denies change in bowel habits, Denies dysphagia, Denies excessive flatus, Denies dyspepsia, Denies heartburn, Denies diarrhea, Denies loose stools, Denies nausea, Denies odynophagia and Denies vomiting Musc Reports no additional complaints Neuro Reports no additional complaints Psych Reports no additional complaints Endo Reports no additional complaints Physical Exam Vital Signs: BMI result Body Mass Index 44.9 Const General: no acute distress HEENT Head: Yes normal to inspection, Yes normocephalic and Yes atraumatic Eyes General: appearance normal, both eyes and all related structures Neck Neck: Yes normal visual inspection and Yes trachea midline Resp Effort & Inspection: normal respiratory effort, able to speak in complete sentences, no tracheal deviation and symmetric chest movement Auscultation: clear to auscultation bilaterally Cardio Rate: regular rate GI Inspection: Yes normal to inspection Palpation (GI): Soft to palpation Auscultation: normal bowel sounds General: Yes no CVA tenderness Back/Spine/Pelvis Back: no CVA tenderness Skin General skin exam: elasticity normal, turgor normal and dry skin Psych Appearance: grossly normal Assessment & Plan Assessment & Plan (1) Chronic GERD: Code(s): K21.9 - Gastro-esophageal reflux disease without esophagitis (2) Chronic constipation: Code(s): K59.09 - Other constipation (3) Crohn's disease: Code(s): K50.90 - Crohn's disease, unspecified, without complications Qualifiers: Gastrointestinal tract location: large intestine Digestive disease complication type: without complication Qualified Code(s): K50.10 - Crohn's disease of large intestine without complications Plan Will check calprotectin see if patient is in remission. She is not complaining of any abdominal pain or discomfort. Patient is constipated occasionally. She can use [id number] MiraLax or Dulcolax. Will refill of Stelara and mercaptopurine. Will arrange for patient to come in for injection. Nurse visit will be arranged for the 25 of March. Both patient and staff members are agreeable to plan of care and verbalizes understanding of instructions. They were given the opportunity to ask questions and all questions answered. Thank you for allowing me to participate in her care Orders: Orders Calprotectin, Fecal 03/08/23 R15.9 - Full incontinence of feces Medications: New ustekinumab (Stelara) 90 mg subcut Q8W 1 mL 2RF mercaptopurine 50 mg PO DAILY 90 tabs 2RF Refilled mercaptopurine 50 mg PO DAILY 90 tabs 2RF Coding Level of Care Code New Pt Level 3 (44444) Diagnoses Chronic GERD K21.9 Chronic constipation K59.09 Crohn's disease of large intestine without complication K50.10 Gastrointestinal tract location: large intestine Digestive disease complication type: without complication Time Spent (min) 40 Comment 30 minutes spent with patient and additional 10 minutes spent reviewing her records
[2023-03-08 11:13] VITALS: BMI 44.9
== END 2023-03-08 13:57 | disposition home or self-care (01) ==
PROVIDERS: PCP Internal Medicine; Visit Provider Nurse Practitioner Family
DX: K21.9 Gastro-esophageal reflux disease without esophagitis (principal); K59.09 Other constipation; K50.10 Crohn's disease of large intestine without complications
CPT/HCPCS: 99203

== ENCOUNTER → 2023-03-08 10:52 | Outpatient (BNVA) | payer MEDICARE, MEDICAID, SELFPAY | PROVIDERS: PCP Internal Medicine; Visit Provider Nurse Practitioner Family | DX: K21.9 Gastro-esophageal reflux disease without esophagitis (principal); K59.09 Other constipation; K50.10 Crohn's disease of large intestine without complications | CPT/HCPCS: 99202 ==

== ENCOUNTER 2023-03-24 10:06 | Outpatient (REF) | payer MEDICARE, MEDICAID, SELFPAY ==
[2023-03-24 13:38] LABS: MANUAL DIFF FLAG NO
[2023-03-24 13:54] LABS: Basophils Percent Auto 0.2 % (0-2); Eosinophils Absolute Auto 0.1 X10*3/uL (0.0-0.4); Eosinophils Percent Auto 2.8 % (0-4); Hematocrit 37.7 % (37.0-47.0); Hemoglobin 11.9 g/dl (12.0-16.0); Imm Gran Abs Auto 0.02 X10*3/uL (0.00-0.03); Imm Gran Pct Auto 0.5 % (0.0-0.4); Lymphocytes Absolute Auto 0.8 X10*3/uL (1.2-4.9); Lymphocytes Percent Auto 18.4 % (20-40); Mean Corpuscular HGB Conc 31.6 g/dl (31.0-35.0); Mean Corpuscular Hemoglobin 28.2 pg (27.0-33.0); Mean Corpuscular Volume 89.3 fL (80.0-98.0); Mean Platelet Volume 11.3 fL (9.4-12.3); Monocytes Absolute Auto 0.3 X10*3/uL (0.1-1.2); Neutrophils Absolute Auto 3.1 x10*3/uL (2.0-8.3); Neutrophils Percent Auto 71.1 % (45-73); Platelet Count 180 X10*3/uL (160-400); Red Blood Count 4.22 X10*6/uL (4.20-5.50); Red Cell Distribution Width 14.9 % (11.0-16.0); White Blood Count 4.3 X10*3/uL (4.8-10.8)
[2023-03-24 17:32] LABS: Alanine Aminotransferase 34 U/L (0-31); Albumin Level 3.8 g/dL (3.5-5.0); Alkaline Phosphatase 57 U/L (39-117); Anion Gap 12 (12-20); Aspartate Amino Transferase 26 U/L (5-31); Bilirubin Total 0.4 mg/dL (0.0-1.0); Blood Urea Nitrogen 19 mg/dL (9-16); Calcium 9.5 mg/dL (8.4-10.2); Carbon Dioxide 28 mmol/L (22-29); Chloride 106 mmol/L (96-108); Estimated Glomerular Filt Rate > 60; Glucose Random 115 mg/dL (60-115); Sodium 142 mmol/L (135-145); TSH reflex Free T4 1.26 uIU/mL (0.32-4.0); Total Protein 7.1 g/dL (6.5-8.0)
[2023-03-25 13:28] LABS: LDL Cholesterol Direct 91 mg/dL (<100)
== END 2023-03-24 10:07 | disposition home or self-care (01) ==
LOC: HO.HMGCLDS 10:06
PROVIDERS: PCP Internal Medicine; Visit Provider Internal Medicine
DX: Z00.01 Encounter for general adult medical examination with abnormal findings (principal); I10 Essential (primary) hypertension; K50.90 Crohn's disease, unspecified, without complications; Q87.11 Prader-Willi syndrome; E55.9 Vitamin D deficiency, unspecified; K21.9 Gastro-esophageal reflux disease without esophagitis; F50.89 Other specified eating disorder; R79.89 Other specified abnormal findings of blood chemistry; F33.9 Major depressive disorder, recurrent, unspecified
CPT/HCPCS: 36415; 80053; 83721; 84443; 85025

== ENCOUNTER 2023-03-25 10:07 | Outpatient (AMB) | payer MEDICARE, MEDICAID, SELFPAY ==
--- NOTE | 2023-03-25 10:51 | AM.OFFVISNUR ---
Intake Intake Visit Reasons: Stelara Training Allergies silver [From TEGADERM AG MESH] Allergy (Unknown, Verified 03/08/23 11:21) RASH transparent dressing Allergy (Unknown, Verified 03/08/23 11:21) skin irritation sensitivity haloperidol [From HALDOL] Adverse Reaction (Intermediate, Verified 03/08/23 11:21) UNKNOWN Tegaderm CHG dressing: Allergy (Unknown, Uncoded 11/17/22 11:02) skin irritation Haldol Adverse Reaction (Unknown, Uncoded 11/17/22 11:02) paradoxical effect Nursing Note Patient presents for collection of?H?Pylori?breath test. Patient has been fasting for 1 hour (nothing to eat, drink, no chewing gum or smoking) has not taken any antacid medication for at least 2 weeks and has no allergies to artificial sweeteners.?? Office Meds Stelara 90 mg/mL subcutaneous syringe Performing Provider: ROMEL Del Rio Performing Location: [facility] [place] [facility] Administered by: Leatha Evans RN on 03/25/23 10:53 Dose Route Admin Location Dispensed Lot Number Expiration Date [facility] Modeling Manager 90 mg subcut 1 mL [id number] 09/25/25 38208-158-19 Giv[employer] Coding Level of Care Code Established Pt Est Pt Level 1 (00648) Patient Type Established Medical Decision Making Straight Forward Assessment & Plan Assessment & Plan Plan Patient presents for collection of?H?Pylori?breath test. Patient has been fasting for 1 hour (nothing to eat, drink, no chewing gum or smoking) has not taken any antacid medication for at least 2 weeks and has no allergies to artificial sweeteners.???This test checks for an overgrowth of bacteria in your stomach. We all have bacteria but some may have more than others. It is treatable. if the test comes back negative there is nothing else to do. If the test result is positive we will treat you with 2 antibiotics and a medication to decrease the acid in your stomach (PPI) for 2 weeks. Two weeks after you have completed the treatment we will retest you to make sure the overgrowth has resolved. Orders: Orders H Pylori Breath Test Today AMB Ustekinumab Injection Today K50.90 - Crohn's disease, unspecified, without complications Patient Instructions: Process for specimen collection and reason for testing was explained to the patient. Specimen collection. Patient instructed to take a deep breath and then exhale into the blue bag, filling it up as much as possible. Patient instructed to drink a mixture of water and the artificial sweetener with a straw. A 15 minute wait period was observed. Patient instructed to take a deep breath and then exhale into the pink bag, filling it up as much as possible.??
== END 2023-03-25 10:56 | disposition home or self-care (01) ==
PROVIDERS: PCP Internal Medicine; Visit Provider Nurse Practitioner Family
DX: K50.90 Crohn's disease, unspecified, without complications (principal)

== ENCOUNTER → 2023-03-25 10:07 | Outpatient (BNVA) | payer MEDICARE, MEDICAID, SELFPAY | PROVIDERS: PCP Internal Medicine; Visit Provider Nurse Practitioner Family | DX: K50.90 Crohn's disease, unspecified, without complications (principal); F50.89 Other specified eating disorder; Q87.11 Prader-Willi syndrome; Z11.0 Encounter for screening for intestinal infectious diseases | CPT/HCPCS: 83013; 83993; 96372; 99211; J3357 ==

== ENCOUNTER 2023-03-25 11:32 | Outpatient (REF) | payer MEDICARE, MEDICAID, SELFPAY ==
[2023-03-27 14:50] LABS: H Pylori Breath Test Negative (Negative)
[2023-03-31 21:33] LABS: Calprotectin, Fecal 3360 mcg/g
== END 2023-03-25 11:33 | disposition home or self-care (01) ==
LOC: HO.LNP 11:32
PROVIDERS: Visit Provider Nurse Practitioner Family
DX: Z13.89 Encounter for screening for other disorder (principal)
CPT/HCPCS: 83013; 83993

== ENCOUNTER 2023-04-21 13:27 | Outpatient (AMB) | payer MEDICARE, MEDICAID, SELFPAY ==
[2023-04-21 13:29] VITALS: BP 122/76; PULSE 62; O2SAT 96; BMI 43.5
--- NOTE | 2023-04-21 13:29 | MHC.PC.OV ---
Vital Signs 04/21/23 13:29 Height 5 ft Weight 223 lb BMI 43.5 BP 122/76 Blood Pressure Location Rt brachial Position Sitting Pulse 62 Pulse Source Pulse Oximeter Pulse Oximetry (%) 96 Oxygen Delivery Method Room Air Intake Visit Reasons: 3 month f/u labs Allergies silver [From TEGADERM AG MESH] Allergy (Unknown, Verified 04/21/23 13:29) RASH transparent dressing Allergy (Unknown, Verified 04/21/23 13:29) skin irritation sensitivity haloperidol [From HALDOL] Adverse Reaction (Intermediate, Verified 04/21/23 13:29) UNKNOWN Tegaderm CHG dressing: Allergy (Unknown, Uncoded 11/17/22 11:02) skin irritation Haldol Adverse Reaction (Unknown, Uncoded 11/17/22 11:02) paradoxical effect Medication List - Last Reconciled 04/21/23 by Galen Xie MD acetaminophen 325 mg PO BID PRN 30 days atenolol 25 mg PO DAILY 90 days budesonide ER 9 mg (3 x 3 mg) PO DAILY calcium citrate-vitamin D3 315 mg-5 mcg (200 unit) (Calcium Citrate + D) 1 tab PO DAILY 90 days cholecalciferol (vitamin D3) (Vitamin D3) 50 mcg PO DAILY 90 days clotrimazole-betamethasone 1-0.05 % 1 appl topical .qhs 30 days diphenhydramine HCl (Benadryl) 25 mg PO TID PRN famotidine 40 mg PO DAILY fluoxetine 20 mg PO DAILY fluticasone propionate 50 mcg/actuation 1 spray intranasal BEDTIME 30 days folic acid 1 mg PO DAILY 90 days hydroxyzine HCl 25 mg PO BID lorazepam 1 mg PO BID PRN mercaptopurine 50 mg PO DAILY miconazole nitrate (Monistat 3) 1 appful vaginal BEDTIME 3 days multivitamin 1 tab PO DAILY naltrexone 50 mg PO DAILY olanzapine (Zyprexa) 5 mg PO BEDTIME omega 7-dom-cax-fish oil 300-1,000 mg 1 cap PO TID 90 days polyethylene glycol 3350 8.5 grams PO DAILY 30 days rosuvastatin (Crestor) 5 mg PO DAILY silver sulfadiazine 1% (Silvadene) 1 appl topical DAILY PRN 30 days sodium chloride 0.65% (Saline Mist) 1 spray intranasal BID PRN 30 days ustekinumab (Stelara) 90 mg subcut Q8W Tobacco use date assessed: 04/21/23 Dental Screening Dental Screen Date: 04/21/23 Did you have a dental visit in the last 12 months?: Yes Did you have a dental problem in the last 6 months where you did not have access to dental care?: No Was dental information given to patient?: Patient has dentist HPI 3 month f/u labs HPI Details Patient is 28-year-old female with a history of Prader-Willi syndrome, autism, morbid obesity, chronic vaginal irritation managed by OBGYN, Crohn's disease, currently seeing Gastroenterology [facility], major depression, psychiatric illness, managed by Psychiatry, hypertension, obstructive sleep apnea, varicosities lower extremity, PTSD, chronic GERD, vitamin-D deficiency, constipation. Patient is here today for a follow-up appointment She is taking all medications, medication list reviewed Blood pressure is stable She lives in [place] and is here with staff members Labs were done February of this year reviewed again Staff is notifying that patient is not sleeping at night, and then she sleeps through the day which is causing problem as she can not participate in day programs Patient have a sleep apnea but she has not using the machine because she was chewing and swallowing the mask because of PICA syndrome She was given trazodone by her psychiatrist which worked for 2 nights and then stopped working I explained to them that because of sleep apnea if we gave her sedative that can cause problem However they can discuss with patient psychiatrist and see if they have any suggestion. Follow-up 3 months [facility] Medical History KARLA (obstructive sleep apnea) Somnolence, daytime Morbid obesity Pain of left lower extremity Swelling of left lower extremity Hypertension, essential Mood disorder Developmental delay, mild Vitamin D deficiency Anemia Iron deficiency PTSD (post-traumatic stress disorder) Anxiety Autistic disorder Chronic constipation Acute constipation Colitis Crohn's disease Prader-Willi syndrome Pica in adults Surgical History History of abdominal surgery History of throat surgery Family History Father No problems noted. Mother No problems noted. Social History Household Members: Other Housing: Other Do you presently have visiting nurse or other home services: Yes Alcohol intake: never Comment: No complaints of headache Patient Tobacco Use Status: Never used Tobacco e-Cigarette/Vaping Use: Never Used Second Hand Smoke Exposure: No service: No Current occupational status: disabled Cognitive needs: No Hearing needs: No Vision needs: Yes Questionnaire PHQ-9 Over the last 2 weeks, how often have you been bothered by any of the following problems? 1. Little interest or pleasure in doing things: not at all 2. Feeling down, depressed, or hopeless: not at all 3. Trouble falling or staying asleep, or sleeping too much: nearly every day 4. Feeling tired or having little energy: nearly every day 5. Poor appetite or overeating: not at all 6. Feeling bad about yourself - or that you are a failure or have let yourself or your family down: not at all 7. Trouble concentrating on things, such as reading the newspaper or watching television: several days 8. Moving or speaking so slowly that other people could have noticed. Or the opposite - being so fidgety or restless that you have been moving around a lot more than usual: nearly every day 9. Thoughts that you would be better off or of hurting yourself in some way: not at all Total score: 10 Depression Screening Interpretation: Positive Depression Screening Follow-up: Existing condition and In treatment Depression Screening Done: Yes 21209 - PHQ-9 Billing: Yes Source: Developed by Drs. Lucian Garcia, Claudia Diaz, Edi Moore and colleagues, with an educational brian from [employer]. Thrive Questionnaire Date Thrive assessed: 04/21/23 I am a: Patient What is your living situation today?: I have a steady place to live Within the past 12 months, did the food you bought not last and you didn't have the money to get more?: Never true Within the past 12 months, did you worry whether your food would run out before you got money to buy more?: Never true Do you have trouble paying for medicines?: No Do you have trouble getting transportation to medical appointments?: No Do you have trouble paying your heating and electricity bill?: No Do you have trouble taking care of your child, family member or friend?: No Do you have trouble with day-to-day activities such as bathing, preparing meals, shopping, managing finances, etc.?: No Are you currently unemployed and looking for a job?: No Are you interested in more education?: No Please select the resources that you would like help with: None Currently or been in a relationship where the following occur: no concerns reported THRIVE Score: 0 BEVERLEY-7 AMB Questionnaire BEVERLEY-7 Date BEVERLEY - 7 assessed: 04/21/23 Feeling nervous, anxious, or on edge: 0 = Not at all Not being able to stop or control worryin = Not at all Worrying too much about different things: 1 = Several days Trouble relaxin = Not at all Being so restless that it is hard to sit still: 0 = Not at all Becoming easily annoyed or irritable: 0 = Not at all Feeling afraid as if something awful might happen: 0 = Not at all Total BEVERLEY-7 score (0-4 normal; 5-9 mild; 10-14 moderate; 15-21 severe): 1 Source: Developed by Drs. Lucian Garcia, Claudia Diaz, Edi Moore and colleagues, with an educational brian from [employer]. BEVERLEY-7 Assessment Billing BEVERLEY-7 Assessment Tool: BEVERLEY-7 Assessment 19704 Review of Systems Const Denies chills and Denies fever(s) ENT Denies epistaxis and Denies nasal discharge Card Denies chest pain Resp Denies chest congestion, Denies cough and Denies hemoptysis GI Denies diarrhea and Denies nausea Skin/Breast Denies rash Neuro Reports no additional complaints Psych Reports no additional complaints Endo Reports no additional complaints Physical exam (Primary Care) Vital Signs: Last Vital Signs Pulse 62 04/21/23 13:29 BP 122/76 04/21/23 13:29 Pulse Ox 96 04/21/23 13:29 Oxygen Delivery Method Room Air 04/21/23 13:29 BMI result Body Mass Index 43.5 Tobacco/Smoking Status: Tobacco use Status Tobacco use date assessed 04/21/23 04/21/23 13:31 Patient Tobacco Use Status Never used Tobacco 04/21/23 13:31 e-Cigarette/Vaping Use Never Used 04/21/23 13:31 PHQ-9: PHQ-9 Score PHQ-9: Total score 10 04/21/23 14:18 Depression Screening Interpretation: Positive Depression Screening Follow-up: Existing condition and In treatment Thrive Assessment: Date of Thrive Assessment Date Thrive assessed 04/21/23 04/21/23 14:18 Currently or been in a relationship where the following occur: no concerns reported Const General: cooperative, comfortable and no acute distress Orientation/consciousness: patient oriented x3 HENMT Head: Yes normocephalic Eyes General: appearance normal, both eyes and all related structures Neck Neck: Yes supple Resp Effort & Inspection: normal respiratory effort, no cough and no stridor Cardio Rhythm: regular rhythm Heart sounds: S1 normal heart sound present and S2 normal heart sound present Skin General skin exam: turgor normal Neuro General: patient oriented x3, tone normal and moves all extremities Assessment and Plan Assessment & Plan (1) Hypertension, essential: Code(s): I10 - Essential (primary) hypertension (2) Crohn's disease: Code(s): K50.90 - Crohn's disease, unspecified, without complications Qualifiers: Digestive disease complication type: without complication Gastrointestinal tract location: large intestine Qualified Code(s): K50.10 - Crohn's disease of large intestine without complications (3) Prader-Willi syndrome: Comment: Patient has developmental disorder secondary to Prader Willi Syndrome Code(s): Q87.11 - Prader-Willi syndrome (4) Vitamin D deficiency: Code(s): E55.9 - Vitamin D deficiency, unspecified (5) Chronic GERD: Code(s): K21.9 - Gastro-esophageal reflux disease without esophagitis (6) Pica in adults: Code(s): F50.89 - Other specified eating disorder (7) LFT elevation: Code(s): R79.89 - Other specified abnormal findings of blood chemistry (8) Morbid obesity: Comment: Patient has underlying developmental disorder, She is morbidly obese, with typical round face and narrow oropharynx, Mallampati class 4. Difficult for her to lose weight. Code(s): E66.01 - Morbid (severe) obesity due to excess calories (9) Major depression, recurrent: Code(s): F33.9 - Major depressive disorder, recurrent, unspecified Qualifiers: Active/Remission status: currently active Major depression episode severity: moderate Qualified Code(s): F33.1 - Major depressive disorder, recurrent, moderate (10) KARLA (obstructive sleep apnea): Comment: SHE IS A CONFIRMED CASE OF SEVERE OBSTRUCTIVE SLEEP APNEA. CPAP TITRATION STUDY DETERMINED THAT SHE NEEDS BY BI-LEVEL CPAP WITH PRESSURE SETTING 20/16 CM. SHE IS NOT ABLE TO USE THE CPAP SHE BITES ON THE MASK AND EATS THE PLASTIC CHIPS, SIMILARLY SHE ALSO BITES ON THE NASAL CANNULA AND CANNOT USE THE OXYGEN. UNDER THE CIRCUMSTANCES THERE IS NO OTHER PRACTICAL SOLUTION AT THIS TIME. HE VENTRALLY AT SOME POINT SHE MAY NEED PERMANENT TRACHEOSTOMY FOR TREATMENT OF HER KARLA. I WILL CHECK OR EVERY 6 MINUTES. Code(s): G47.33 - Obstructive sleep apnea (adult) (pediatric) (11) Psychiatric illness: Code(s): F99 - Mental disorder, not otherwise specified (12) Dermatitis: Code(s): L30.9 - Dermatitis, unspecified (13) Constipation by delayed colonic transit: Code(s): K59.01 - Slow transit constipation (14) Autistic disorder: Code(s): F84.0 - Autistic disorder Plan Patient is 28-year-old female with a history of Prader-Willi syndrome, autism, morbid obesity, chronic vaginal irritation managed by OBGYN, Crohn's disease, currently seeing Gastroenterology [facility], major depression, psychiatric illness, managed by Psychiatry, hypertension, obstructive sleep apnea, varicosities lower extremity, PTSD, chronic GERD, vitamin-D deficiency, constipation. Patient is here today for a follow-up appointment She is taking all medications, medication list reviewed Blood pressure is stable She lives in [place] and is here with staff members Labs were done February of this year reviewed again Staff is notifying that patient is not sleeping at night, and then she sleeps through the day which is causing problem as she can not participate in day programs Patient have a sleep apnea but she has not using the machine because she was chewing and swallowing the mask because of PICA syndrome She was given trazodone by her psychiatrist which worked for 2 nights and then stopped working I explained to them that because of sleep apnea if we gave her sedative that can cause problem However they can discuss with patient psychiatrist and see if they have any suggestion. Her lipids are elevated she is on rosuvastatin 5 mg Follow-up 3 months Coding Level of Care Code Est Pt Level 4 (49587) Diagnoses Hypertension, essential I10 Crohn's disease of large intestine without complication K50.10 Digestive disease complication type: without complication Gastrointestinal tract location: large intestine Prader-Willi syndrome Q87.11 Vitamin D deficiency E55.9 Chronic GERD K21.9 Pica in adults F50.89 LFT elevation R79.89 Morbid obesity E66.01 Moderate episode of recurrent major depressive disorder F33.1 Active/Remission status: currently active Major depression episode severity: moderate KARLA (obstructive sleep apnea) G47.33 Psychiatric illness F99 Dermatitis L30.9 Constipation by delayed colonic transit K59.01 Autistic disorder F84.0 Additional Codes BEVERLEY-7 Assessment Billing - BEVERLEY-7 Assessment Tool: BEVERLEY-7 Assessment 62480 ([id number])
== END 2023-04-21 14:00 | disposition home or self-care (01) ==
PROVIDERS: PCP Internal Medicine; Visit Provider Internal Medicine
DX: F33.1 Major depressive disorder, recurrent, moderate (principal); F84.0 Autistic disorder
CPT/HCPCS: 96127; 99214

== ENCOUNTER 2023-05-20 08:56 | Outpatient (AMB) | payer MEDICARE, MEDICAID, SELFPAY ==
--- NOTE | 2023-05-20 09:26 | AM.OFFVISNUR ---
Intake Intake Visit Reasons: Stelara Injection Allergies silver [From TEGADERM AG MESH] Allergy (Unknown, Verified 04/21/23 13:29) RASH transparent dressing Allergy (Unknown, Verified 04/21/23 13:29) skin irritation sensitivity haloperidol [From HALDOL] Adverse Reaction (Intermediate, Verified 04/21/23 13:29) UNKNOWN Tegaderm CHG dressing: Allergy (Unknown, Uncoded 11/17/22 11:02) skin irritation Haldol Adverse Reaction (Unknown, Uncoded 11/17/22 11:02) paradoxical effect Office Meds Stelara 90 mg/mL subcutaneous syringe Performing Provider: ROMEL Del Rio Performing Location: [facility] [place] [facility] Administered by: Starr Herman RN on 05/20/23 09:33 Dose Route Admin Location Dispensed Lot Number Expiration Date [facility] Paper Roll Machine Operator 90 mg subcut rt arm 1 mL [id number] 05/20/25 27268-601-50 [employer] Comments: ToLerated well Coding Level of Care Code Established Pt Est Pt Level 1 (46514) Patient Type Established Assessment & Plan Assessment & Plan Orders: Orders AMB Ustekinumab Injection Today K50.90 - Crohn's disease, unspecified, without complications
== END 2023-05-20 09:30 | disposition home or self-care (01) ==
PROVIDERS: PCP Internal Medicine; Visit Provider Nurse Practitioner Family
DX: K50.90 Crohn's disease, unspecified, without complications (principal)

== ENCOUNTER → 2023-05-20 08:56 | Outpatient (BNVA) | payer MEDICARE, MEDICAID, SELFPAY | PROVIDERS: PCP Internal Medicine; Visit Provider Nurse Practitioner Family | DX: K50.90 Crohn's disease, unspecified, without complications (principal); K52.9 Noninfective gastroenteritis and colitis, unspecified | CPT/HCPCS: 96372; 99211; J3357 ==

== ENCOUNTER 2023-05-24 10:55 | Outpatient (AMB) | payer MEDICARE, MEDICAID, SELFPAY ==
[2023-05-24 11:02] VITALS: BP 102/64; PULSE 54; O2SAT 96; BMI 44.1
--- NOTE | 2023-05-24 11:02 | A.OFFVIS_ITS ---
Intake Vital Signs 05/24/23 11:02 Height 5 ft Weight 225 lb 15.581 oz BMI 44.1 BP 102/64 Blood Pressure Location Lt brachial Position Sitting Pulse 54 Pulse Source Pulse Oximeter Pulse Oximetry (%) 96 Oxygen Delivery Method Room Air Intake Visit Reasons: Obstructive sleep apnea follow-up Intake Note: pt is here for follow up and states she is okay, no issues in the house. no cpap or oxygen in home. Boarding Specialist Required: No Allergies silver [From TEGADERM AG MESH] Allergy (Unknown, Verified 05/24/23 11:16) RASH transparent dressing Allergy (Unknown, Verified 05/24/23 11:16) skin irritation sensitivity haloperidol [From HALDOL] Adverse Reaction (Intermediate, Verified 05/24/23 11 :16) UNKNOWN Tegaderm CHG dressing: Allergy (Unknown, Uncoded 05/24/23 11:16) skin irritation Haldol Adverse Reaction (Unknown, Uncoded 05/24/23 11:16) paradoxical effect Medication List - Last Reconciled 05/24/23 by Paola Grove MD acetaminophen 325 mg PO BID PRN 30 days atenolol 25 mg PO DAILY 90 days budesonide ER 9 mg (3 x 3 mg) PO DAILY calcium citrate-vitamin D3 315 mg-5 mcg (200 unit) (Calcium Citrate + D) 1 tab PO DAILY 90 days cholecalciferol (vitamin D3) (Vitamin D3) 50 mcg PO DAILY 90 days clotrimazole-betamethasone 1-0.05 % 1 appl topical .qhs 30 days diphenhydramine HCl (Benadryl) 25 mg PO TID PRN famotidine 40 mg PO DAILY fluoxetine 20 mg PO DAILY fluticasone propionate 50 mcg/actuation 1 spray intranasal BEDTIME 30 days folic acid 1 mg PO DAILY 90 days hydroxyzine HCl 25 mg PO BID lorazepam 1 mg PO BID PRN mercaptopurine 50 mg PO DAILY miconazole nitrate (Monistat 3) 1 appful vaginal BEDTIME 3 days multivitamin 1 tab PO DAILY naltrexone 50 mg PO DAILY olanzapine (Zyprexa) 5 mg PO BEDTIME omega 6-oxx-qoy-fish oil 300-1,000 mg 1 cap PO TID 90 days polyethylene glycol 3350 8.5 grams PO DAILY 30 days rosuvastatin (Crestor) 5 mg PO DAILY silver sulfadiazine 1% (Silvadene) 1 appl topical DAILY PRN 30 days sodium chloride 0.65% (Saline Mist) 1 spray intranasal BID PRN 30 days ustekinumab (Stelara) 90 mg subcut Q8W Do you need a note to return to daycare/school/sports/work: No HPI Obstructive sleep apnea follow-up HPI Details NALDO IS 28 YEARS OLD FEMALE , A CASE OF PRADER-WILLI SYNDROME, WITH MORBID OBESITY AND DEVELOPMENTAL DISORDER. SHE HAS H/O OBSTRUCTIVE SLEEP APNEA WITH NOCTURNAL HYPOXEMIA. SHE WAS STARTED ON BIPAP. . AND OXYGEN SUPPLEMENTATION AT NIGHT UNFORTUNATELY DUE TO HER PSYCHIATRIC DISORDER, SHE BITES ON THE MASK WELL ON OXYGEN AND CANNOT USE EITHER ONE . SHE IS TRYING TO SLEEP IN LATERAL POSITION. ACCORDING TO THE STAFF, SHE SLEEPS WELL, AND HAS ONLY MINIMAL DAYTIME SOMNOLENCE, WEIGHT , DOWN BY SIX POUNDS IN LAST 6 MONTHS . [facility] Medical History KARLA (obstructive sleep apnea) Somnolence, daytime Morbid obesity Pain of left lower extremity Swelling of left lower extremity Hypertension, essential Mood disorder Developmental delay, mild Vitamin D deficiency Anemia Iron deficiency PTSD (post-traumatic stress disorder) Anxiety Autistic disorder Chronic constipation Acute constipation Colitis Crohn's disease Prader-Willi syndrome Pica in adults Surgical History History of abdominal surgery History of throat surgery Family History Father No problems noted. Mother No problems noted. Social History Household Members: Other Housing: Other Do you presently have visiting nurse or other home services: Yes Alcohol intake: never Comment: No complaints of headache Patient Tobacco Use Status: Never used Tobacco e-Cigarette/Vaping Use: Never Used Second Hand Smoke Exposure: No service: No Current occupational status: disabled Cognitive needs: No Hearing needs: No Vision needs: Yes Review of Systems Const All systems reviewed & are unremarkable except as noted in HPI and below Reports snoring Eyes Reports no additional complaints ENT Denies epistaxis, Reports nasal congestion (Mild intermittent) and Denies nasal discharge Card Denies chest pain, Denies irregular heart rhythm and Denies leg edema Resp Denies cough, Reports snoring and Denies wheezing GI Reports constipation, Reports heartburn (GERD symptoms being treated,) and Reports other (History of Crohn's disease) Reports no additional complaints Musc Reports no additional complaints Skin/Breast Reports system reviewed and no additional complaints, except as documented Neuro Reports no additional complaints Psych Reports mood swings and Reports other (prader-Willi Syndrome ) Endo Reports no additional complaints Lyndon/Lymph Reports other (h/o anemia ) Aller/Immun Denies wheezing Physical Exam Vital Signs: Last Vital Signs Pulse 54 05/24/23 11:02 BP 102/64 05/24/23 11:02 Pulse Ox 96 05/24/23 11:02 Oxygen Delivery Method Room Air 05/24/23 11:02 BMI result Body Mass Index 44.1 Const Other: This patient is grossly obese with a round face General: comfortable, no acute distress, alert and awake Orientation/consciousness: patient oriented x3 HEENT Head: Yes normal to inspection General nose exam: No nasal polyps present and No nasal discharge present Face and sinus: Yes sinuses nontender Mouth: oropharynx abnormals (Oropharynx is narrow, Mallampati class 4) Throat: Yes posterior oropharynx normal Eyes General: appearance normal, both eyes and all related structures Neck Neck: Yes normal visual inspection, Yes no lymphadenopathy, Yes trachea midline, Yes no JVD and Yes other (Neck size 15-1/2 inch) Thyroid: Thyroid normal Chest Chest palpation & inspection: normal inspection of the chest, normal palpation of entire chest wall and no tenderness Resp Effort & Inspection: normal respiratory effort and no cough Auscultation: clear to auscultation bilaterally, no crackles and no wheezes Cardio Palpation: normal PMI Rate: regular rate Rhythm: regular rhythm Heart sounds: no gallops and no murmurs Peripheral pulses: Peripheral pulses 2+ throughout GI Palpation (GI): Soft to palpation, nontender, No hepatosplenomegaly present, no masses and Other GI palpation findings present (Abdomen is moderately obese and protuberant) Auscultation: normal bowel sounds Back/Spine/Pelvis Thoracic/Lumbar Spine: thoracic and lumbar spine normal to inspection Skin General skin exam: no rashes or lesions noted Neuro General: patient oriented x3 and no focal motor deficits Cranial nerves: Yes CN's II-XII intact bilaterally Extrem General: Yes normal to inspection, Yes no clubbing, cyanosis or edema and Yes no calf tenderness Psych Appearance: grossly normal and well kempt Speech and movement: Normal speech and movement present Assessment & Plan Assessment & Plan (1) Prader-Willi syndrome: Comment: THIS IS A CONGENITAL, DISORDER, AND CAUSE OF HER MORBID OBESITY, WITH DEVELOPMENTAL DELAY / INTELLECTUAL DISABILITY Code(s): Q87.11 - Prader-Willi syndrome Plan: JUST BEING WATCHED CLOSELY. (2) Morbid obesity: Comment: Patient has underlying developmental disorder, She is morbidly obese, with typical round face and narrow oropharynx, Mallampati class 4. Difficult for her to lose weight. Code(s): E66.01 - Morbid (severe) obesity due to excess calories Plan: THE STAFF AT THE PRISON HAS BEEN INSTRUCTED TO CUT DOWN HER CALORIES INTAKE. IN THE LAST 6 MONTHS SHE HAS LOST ABOUT 6 LB. (3) KARLA (obstructive sleep apnea): Comment: SHE IS A CONFIRMED CASE OF SEVERE OBSTRUCTIVE SLEEP APNEA. CPAP TITRATION STUDY DETERMINED THAT SHE NEEDS BY BI-LEVEL CPAP WITH PRESSURE SETTING 20/16 CM. SHE IS NOT ABLE TO USE THE CPAP SHE BITES ON THE MASK AND EATS THE PLASTIC CHIPS, SIMILARLY SHE ALSO BITES ON THE NASAL CANNULA AND CANNOT USE THE OXYGEN. UNDER THE CIRCUMSTANCES THERE IS NO OTHER PRACTICAL SOLUTION AT THIS TIME. EVANTUALLY AT SOME POINT SHE MAY NEED PERMANENT TRACHEOSTOMY FOR TREATMENT OF HER KARLA. I WILL CHECK OR EVERY 6 MINUTES. Code(s): G47.33 - Obstructive sleep apnea (adult) (pediatric) Plan: as above (4) Somnolence, daytime: Comment: Due to her disturbed sleep at night she does have excessive daytime sleepiness. ESS= 13/24, which is actually much less than before. Code(s): R40.0 - Somnolence Plan: as above Coding Level of Care Code Est Pt Level 3 (74518) Diagnoses Prader-Willi syndrome Q87.11 Morbid obesity E66.01 KARLA (obstructive sleep apnea) G47.33 Somnolence, daytime R40.0
== END 2023-05-24 11:17 | disposition home or self-care (01) ==
PROVIDERS: PCP Internal Medicine; Visit Provider Internal Medicine
DX: Q87.11 Prader-Willi syndrome (principal); G47.33 Obstructive sleep apnea (adult) (pediatric); R40.0 Somnolence
CPT/HCPCS: 99213

== ENCOUNTER → 2023-05-24 10:55 | Outpatient (BNVA) | payer MEDICARE, MEDICAID, SELFPAY | PROVIDERS: PCP Internal Medicine; Visit Provider Internal Medicine | DX: G47.33 Obstructive sleep apnea (adult) (pediatric) (principal); Q87.11 Prader-Willi syndrome; R40.0 Somnolence | CPT/HCPCS: 99212 ==

== ENCOUNTER 2023-06-03 09:33 | Outpatient (AMB) | payer MEDICARE, MEDICAID, SELFPAY ==
--- NOTE | 2023-06-03 09:49 | MHC.OFFWIV ---
Intake Vital Signs 06/03/23 09:54 Weight 226 lb BP 124/82 Blood Pressure Location Lt brachial Position Sitting Pulse 56 Pulse Source Pulse Oximeter Pulse Oximetry (%) 98 Oxygen Delivery Method Room Air Intake Visit Reasons: EST/sore throat Intake Note: Patient here for sore throat that has been present for about 4 days, hurts to talk and swallow. Patient Tobacco Use Status: Never used Tobacco Allergies silver [From TEGADERM AG MESH] Allergy (Unknown, Verified 06/03/23 09:55) RASH transparent dressing Allergy (Unknown, Verified 06/03/23 09:55) skin irritation sensitivity haloperidol [From HALDOL] Adverse Reaction (Intermediate, Verified 06/03/23 09:55) UNKNOWN Tegaderm CHG dressing: Allergy (Unknown, Uncoded 06/03/23 09:55) skin irritation Haldol Adverse Reaction (Unknown, Uncoded 06/03/23 09:55) paradoxical effect Do you need a note to return to daycare/school/sports/work: No HPI EST/sore throat HPI Details This is a 28-year-old female patient who presents today with to workers from her [employer] program. She has been c/o sore throat x4 days. Another member of the program recently had strep. She reports pain and burning with swallowing/eating. Denies fever or chills. [facility] Medical History KARLA (obstructive sleep apnea) Somnolence, daytime Morbid obesity Pain of left lower extremity Swelling of left lower extremity Hypertension, essential Mood disorder Developmental delay, mild Vitamin D deficiency Anemia Iron deficiency PTSD (post-traumatic stress disorder) Anxiety Autistic disorder Chronic constipation Acute constipation Colitis Crohn's disease Prader-Willi syndrome Pica in adults Surgical History History of abdominal surgery History of throat surgery Family History Father No problems noted. Mother No problems noted. Social History Household Members: Other Housing: Other Do you presently have visiting nurse or other home services: Yes Alcohol intake: never Comment: No complaints of headache Patient Tobacco Use Status: Never used Tobacco e-Cigarette/Vaping Use: Never Used Second Hand Smoke Exposure: No service: No Current occupational status: disabled Cognitive needs: No Hearing needs: No Vision needs: Yes Review of Systems Const All systems reviewed & are unremarkable except as noted in HPI and below Physical Exam Vital Signs: Last Vital Signs Pulse 56 06/03/23 09:54 BP 124/82 06/03/23 09:54 Pulse Ox 98 06/03/23 09:54 Oxygen Delivery Method Room Air 06/03/23 09:54 Const General: cooperative Nutritional Appearance: obese Limitations: behavioral limitations HEENT Head: Yes normal to inspection Ears: hearing grossly normal bilaterally General nose exam: Normal external nose present and Normal nasal mucous membranes and turbinates present Face and sinus: Yes normal facial exam Throat: Yes posterior oropharynx abnormal (difficult exam due to patient habitus and ability to open mouth-appears red) Neck Neck: Yes no lymphadenopathy Resp Effort & Inspection: normal respiratory effort and able to speak in complete sentences Auscultation: clear to auscultation bilaterally Cardio Palpation: normal PMI Rate: regular rate Rhythm: regular rhythm Skin General skin exam: no rashes or lesions noted Extrem General: Yes capillary refill normal and Yes no clubbing, cyanosis or edema Psych Appearance: grossly normal Mental Status: mental status grossly normal Speech and movement: Normal speech and movement present Results AMB Rapid Strep AMB Rapid Strep Negative Last Edit by ROSEANNA Rogers on 06/03/23 10:10 Results Reviewed Results Reviewed: Laboratory Last Values Strep Scn Rapid Clinic Negative 06/03/23 10:10 Assessment & Plan Assessment & Plan (1) Pharyngitis: Code(s): J02.9 - Acute pharyngitis, unspecified Qualifiers: Pharyngitis/tonsillitis etiology: unspecified etiology Qualified Code(s): J02.9 - Acute pharyngitis, unspecified Plan: Will treat empirically for strep pharyngitis as patient had exposure and is symptomatic. Rapid strep in office was negative. Oropharynx exam difficult due to patient ability to open mouth (significant oral/oropharynx trauma from PICA). It appears erythematous. I reviewed medications indications, use, possible side effects with patient and both of her worker's present from [employer]. Also completed form that will allow her to use lozenges/cough drops for the next several days. If she does not improve with treatment, or if symptoms worsen/new symptoms develop, she can return to the clinic for further evaluation. Patient and worker's present verbalized understanding and agreed to plan. Orders: Orders AMB Rapid Strep Screen Today Z13.9 - Encounter for screening, unspecified Medications: New penicillin V potassium 500 mg PO BID 10 days 20 tabs 0RF J02.0 - Streptococcal pharyngitis Coding Level of Care Code Est Pt Level 3 (33406) Diagnoses Pharyngitis, unspecified etiology J02.9 Pharyngitis/tonsillitis etiology: unspecified etiology
[2023-06-03 09:54] VITALS: BP 124/82; PULSE 56; O2SAT 98
== END 2023-06-03 10:39 | disposition home or self-care (01) ==
PROVIDERS: PCP Internal Medicine; Visit Provider Nurse Practitioner Family
DX: J02.9 Acute pharyngitis, unspecified (principal)
CPT/HCPCS: 87880; 99213

== ENCOUNTER 2023-07-13 09:21 | Outpatient (AMB) | payer MEDICARE, MEDICAID, SELFPAY ==
--- NOTE | 2023-07-13 09:34 | AM.OFFVISNUR ---
Intake Intake Visit Reasons: Stelara Injection Allergies silver [From TEGADERM AG MESH] Allergy (Unknown, Verified 06/03/23 09:55) RASH transparent dressing Allergy (Unknown, Verified 06/03/23 09:55) skin irritation sensitivity haloperidol [From HALDOL] Adverse Reaction (Intermediate, Verified 06/03/23 09:55) UNKNOWN Tegaderm CHG dressing: Allergy (Unknown, Uncoded 06/03/23 09:55) skin irritation Haldol Adverse Reaction (Unknown, Uncoded 06/03/23 09:55) paradoxical effect Office Meds Stelara 90 mg/mL subcutaneous syringe Performing Provider: ROMEL Del Rio Performing Location: [facility] Administered by: Leatha Evans RN on 07/13/23 09:34 Dose Route Admin Location Dispensed Lot Number Expiration Date [facility] [place] [employer] 90 mg subcut Left Arm, Upper, Outer 1 mL [id number] 01/26/26 46534-603-55 [place] Coding Level of Care Code Established Pt Est Pt Level 1 (00901) Patient Type Established Medical Decision Making Straight Forward Diagnoses Crohn's disease of large intestine without complication K50.10 Gastrointestinal tract location: large intestine Digestive disease complication type: without complication Assessment & Plan Assessment & Plan (1) Crohn's disease: Code(s): K50.90 - Crohn's disease, unspecified, without complications Category: Medical Qualifiers: Gastrointestinal tract location: large intestine Digestive disease complication type: without complication Qualified Code(s): K50.10 - Crohn's disease of large intestine without complications Orders: Orders AMB Ustekinumab Injection Today K50.10 - Crohn's disease of large intestine without complications Medications: New Stelara (ustekinumab) 90 mg subcut ONCE 1 mL 0RF NS K50.10 - Crohn's disease of large intestine without complications
== END 2023-07-13 09:36 | disposition home or self-care (01) ==
PROVIDERS: PCP Internal Medicine; Visit Provider Nurse Practitioner Family
DX: K50.10 Crohn's disease of large intestine without complications (principal)

== ENCOUNTER → 2023-07-13 09:21 | Outpatient (BNVA) | payer MEDICARE, MEDICAID, SELFPAY | PROVIDERS: PCP Internal Medicine; Visit Provider Nurse Practitioner Family | DX: K50.10 Crohn's disease of large intestine without complications (principal) | CPT/HCPCS: 96372; 99211; J3357 ==

== ENCOUNTER 2023-07-16 13:12 | Outpatient (AMB) | payer MEDICARE, MEDICAID, SELFPAY ==
[2023-07-16 13:13] VITALS: BP 126/74; PULSE 66; O2SAT 98; BMI 43.4
--- NOTE | 2023-07-16 13:13 | A.OFFPC_ITS ---
Vital Signs 3 07/16/23 13:13 Height 5 ft Weight 222 lb BMI 43.4 BP 126/74 Blood Pressure Location Lt brachial Position Sitting Pulse 66 Pulse Source Pulse Oximeter Pulse Oximetry (%) 98 Oxygen Delivery Method Room Air Intake Visit Reasons: 3 Month F/U labs Allergies silver [From TEGADERM AG MESH] Allergy (Unknown, Verified 07/16/23 13:18) RASH transparent dressing Allergy (Unknown, Verified 07/16/23 13:18) skin irritation sensitivity haloperidol [From HALDOL] Adverse Reaction (Intermediate, Verified 07/16/23 13:18) UNKNOWN Tegaderm CHG dressing: Allergy (Unknown, Uncoded 06/03/23 09:55) skin irritation Haldol Adverse Reaction (Unknown, Uncoded 06/03/23 09:55) paradoxical effect Medication List - Last Reconciled 07/16/23 by Galen Xie MD acetaminophen 325 mg PO BID PRN 30 days atenolol 25 mg PO QAM [address]-ER 9 mg (3 x 3 mg) PO DAILY calcium citrate-vitamin D3 315 mg-5 mcg (200 unit) (Calcium Citrate + D) 1 tab PO QAM 90 days cholecalciferol (vitamin D3) (Vitamin D3) 50 mcg PO QAM 90 days famotidine 40 mg PO .QHS fluoxetine 20 mg PO DAILY fluticasone propionate 50 mcg/actuation 1 spray intranasal BEDTIME 30 days folic acid 1 mg PO QAM 90 days hydroxyzine HCl 25 mg PO BID mercaptopurine 50 mg PO DAILY multivitamin 1 tab PO DAILY naltrexone 50 mg PO DAILY olanzapine (Zyprexa) 5 mg PO BEDTIME omega 1-acg-tje-fish oil 300-1,000 mg 1 cap orally in am, noon and pm; 90 days polyethylene glycol 3350 8.5 grams PO DAILY 30 days rosuvastatin (Crestor) 5 mg PO .QHS ustekinumab (Stelara) 90 mg subcut Q8W Tobacco use date assessed: 04/21/23 Dental Screening Dental Screen Date: 04/21/23 HPI 3 Month F/U labs 2 HPI0 Details Patient is 28 year female came in today for regular follow-up appointment and for problem visit with the staff members Staff member's names were Kavita Both staff members had no idea what is happening with the patient They were very rude in their tones They had no idea what medication patient was taking Did mentioned concerned about swelling of left ankle When I told them that patient has this problem chronically and has been evaluated by vascular specialist I even took out the consultation report and read the recommendations through them Then they ask me what is vascular insufficiency I tried to explain them in simple worse that went vessels in lower extremity to not work properly and fluid accumulates in ankle compression stockings, elevation, exercise, is mentioned in vascular consultation They keep saying that has not going to be possible with this patient I offered that I will book a follow-up appointment with the vascular specialist, they did not like that either Patient is also having slight swelling of right cheek, she does have allergies With the arrival of spring it seems as if her allergies are worsened On examination she had colored discharge in her nose Mild discomfort over right and left sinus She is already using Flonase nasal spray I have sent cetirizine for the night I have also prescribed azithromycin She should come back in 10 days for re-evaluation Both staff member got up mumbling, told me that I am very rude Left with the patient talking loud through the medical office hallway I had to call the numerical analysis group manager to discuss all this I was notified that these ladies have never brought in [place] for her appointments It could be that they are feeling overwhelmed. I requested if possible they should not come with the patient again Or at least they should try to educate themselves about the patient before they come in So they have some idea of what is going on with the patient [facility] Medical History KARLA (obstructive sleep apnea) Somnolence, daytime Morbid obesity Pain of left lower extremity Swelling of left lower extremity Hypertension, essential Mood disorder Developmental delay, mild Vitamin D deficiency Anemia Iron deficiency PTSD (post-traumatic stress disorder) Anxiety Autistic disorder Chronic constipation Acute constipation Colitis Crohn's disease Prader-Willi syndrome Pica in adults Surgical History History of abdominal surgery History of throat surgery Family History Father No problems noted. Mother No problems noted. Social History Household Members: Other Housing: Other Do you presently have visiting nurse or other home services: Yes Alcohol intake: never Comment: No complaints of headache Patient Tobacco Use Status: Never used Tobacco e-Cigarette/Vaping Use: Never Used Second Hand Smoke Exposure: No service: No Current occupational status: disabled Cognitive needs: No Hearing needs: No Vision needs: Yes Questionnaire Thrive Questionnaire Date Thrive assessed: 04/21/23 BEVERLEY-7 AMB Questionnaire BEVERLEY-7 Date BEVERLEY - 7 assessed: 04/21/23 Source: Developed by Drs. Lucian Garcia, Claudia Diaz, Edi Moore and colleagues, with an educational brian from [employer]. Review of Systems Const Denies chills and Denies fever(s) ENT Denies epistaxis Card Denies chest pain Resp Denies chest congestion, Denies cough and Denies hemoptysis GI Denies diarrhea and Denies nausea Skin/Breast Denies rash Neuro Reports no additional complaints Psych Reports no additional complaints Endo Reports no additional complaints Physical exam (Primary Care) Vital Signs: Last Vital Signs Pulse 66 07/16/23 13:13 BP 126/74 07/16/23 13:13 Pulse Ox 98 07/16/23 13:13 Oxygen Delivery Method Room Air 07/16/23 13:13 BMI result Body Mass Index 43.4 Tobacco/Smoking Status: Tobacco use Status Tobacco use date assessed 04/21/23 07/16/23 13:15 Patient Tobacco Use Status Never used Tobacco 07/16/23 13:15 e-Cigarette/Vaping Use Never Used 07/16/23 13:15 Thrive Assessment: Date of Thrive Assessment Date Thrive assessed 04/21/23 07/16/23 13:15 Const General: cooperative, comfortable and no acute distress HENAK Head: Yes normocephalic Head images: 2 1. Mild swelling compared to left side both sides with slight discomfort on palpation 2. Both nares narrow with anthony discharge both sides Eyes General: appearance normal, both eyes and all related structures Neck Neck: Yes supple Resp Effort & Inspection: normal respiratory effort, no cough and no stridor Cardio Rhythm: regular rhythm Heart sounds: S1 normal heart sound present and S2 normal heart sound present Skin General skin exam: turgor normal Neuro General: tone normal and moves all extremities Extrem Other: Bilateral edema 1+ pitting chronic Assessment and Plan Assessment & Plan (1) Acute maxillary sinusitis: Code(s): J01.00 - Acute maxillary sinusitis, unspecified Qualifiers: Recurrence: non-recurrent Qualified Code(s): J01.00 - Acute maxillary sinusitis, unspecified (2) Environmental allergies: Code(s): Z91.09 - Other allergy status, other than to drugs and biological substances (3) Edema of both ankles: Code(s): M25.471 - Effusion, right ankle; M25.472 - Effusion, left ankle (4) Hypertension, essential: Code(s): I10 - Essential (primary) hypertension (5) Prader-Willi syndrome: Comment: Patient has developmental disorder secondary to Prader Willi Syndrome Code(s): Q87.11 - Prader-Willi syndrome (6) Chronic GERD: Code(s): K21.9 - Gastro-esophageal reflux disease without esophagitis (7) Morbid obesity: Comment: Patient has underlying developmental disorder, She is morbidly obese, with typical round face and narrow oropharynx, Mallampati class 4. Difficult for her to lose weight. Code(s): E66.01 - Morbid (severe) obesity due to excess calories (8) Major depression, recurrent: Code(s): F33.9 - Major depressive disorder, recurrent, unspecified Qualifiers: Active/Remission status: currently active Major depression episode severity: moderate Qualified Code(s): F33.1 - Major depressive disorder, recurrent, moderate (9) KARLA (obstructive sleep apnea): Comment: SHE IS A CONFIRMED CASE OF SEVERE OBSTRUCTIVE SLEEP APNEA. CPAP TITRATION STUDY DETERMINED THAT SHE NEEDS BY BI-LEVEL CPAP WITH PRESSURE SETTING 20/16 CM. SHE IS NOT ABLE TO USE THE CPAP SHE BITES ON THE MASK AND EATS THE PLASTIC CHIPS, SIMILARLY SHE ALSO BITES ON THE NASAL CANNULA AND CANNOT USE THE OXYGEN. UNDER THE CIRCUMSTANCES THERE IS NO OTHER PRACTICAL SOLUTION AT THIS TIME. EVANTUALLY AT SOME POINT SHE MAY NEED PERMANENT TRACHEOSTOMY FOR TREATMENT OF HER KARLA. I WILL CHECK OR EVERY 6 MINUTES. Code(s): G47.33 - Obstructive sleep apnea (adult) (pediatric) (10) Psychiatric illness: Code(s): F99 - Mental disorder, not otherwise specified (11) Autistic disorder: Code(s): F84.0 - Autistic disorder (12) Peripheral vascular disease: Code(s): I73.9 - Peripheral vascular disease, unspecified Plan Patient is 28 year female came in today for regular follow-up appointment and for problem visit with the staff members Staff member's names were Kavita Both staff members had no idea what is happening with the patient They were very rude in their tones They had no idea what medication patient was taking Did mentioned concerned about swelling of left ankle When I told them that patient has this problem chronically and has been evaluated by vascular specialist I even took out the consultation report and read the recommendations through them Then they ask me what is vascular insufficiency I tried to explain them in simple worse that went vessels in lower extremity to not work properly and fluid accumulates in ankle compression stockings, elevation, exercise, is mentioned in vascular consultation They keep saying that has not going to be possible with this patient I offered that I will book a follow-up appointment with the vascular specialist, they did not like that either Patient is also having slight swelling of right cheek, she does have allergies With the arrival of spring it seems as if her allergies are worsened On examination she had colored discharge in her nose Mild discomfort over right and left sinus She is already using Flonase nasal spray I have sent cetirizine for the night I have also prescribed azithromycin She should come back in 10 days for re-evaluation Both staff member got up mumbling, told me that I am very rude Left with the patient talking loud through the medical office hallway I had to call the numerical analysis group manager to discuss all this I was notified that these ladies have never brought in [place] for her appointments It could be that they are feeling overwhelmed. I requested if possible they should not come with the patient again Or at least they should try to educate themselves about the patient before they come in So they have some idea of what is going on with the patient Orders: Referrals 2 Vascular Surgery Referral M25.471 - Effusion, right ankle, M25.472 - Effusion, left ankle Medications: New 2 cetirizine (Zyrtec) 10 mg PO DAILY 90 tabs 1RF 90 days azithromycin Take 2 tablets today then 1 daily 250 mg PO ONCE 6 tabs 0RF 5 days J06.9 - Acute upper respiratory infection, unspecified Coding Level of Care Code Est Pt Level 5 (69262) Diagnoses Acute non-recurrent maxillary sinusitis J01.00 Recurrence: non-recurrent Environmental allergies Z91.09 Edema of both ankles M25.471; M25.472 Hypertension, essential I10 Prader-Willi syndrome Q87.11 Chronic GERD K21.9 Morbid obesity E66.01 Moderate episode of recurrent major depressive disorder F33.1 Active/Remission status: currently active Major depression episode severity: moderate KARLA (obstructive sleep apnea) G47.33 Psychiatric illness F99 Autistic disorder F84.0 Peripheral vascular disease I73.9 Time Spent (min) 41 Comment [id number] with patient and staff member, calling numerical analysis group manager, charting coordinat
== END 2023-07-16 14:27 | disposition home or self-care (01) ==
PROVIDERS: PCP Internal Medicine; Visit Provider Internal Medicine
DX: I73.9 Peripheral vascular disease, unspecified (principal); E66.01 Morbid (severe) obesity due to excess calories; F33.1 Major depressive disorder, recurrent, moderate; Z68.41 Body mass index [BMI] 40.0-44.9, adult; J01.00 Acute maxillary sinusitis, unspecified; Z91.09 Other allergy status, other than to drugs and biological substances; M25.471 Effusion, right ankle; I10 Essential (primary) hypertension; M25.472 Effusion, left ankle; Q87.11 Prader-Willi syndrome; K21.9 Gastro-esophageal reflux disease without esophagitis; G47.33 Obstructive sleep apnea (adult) (pediatric)
CPT/HCPCS: 99215

== ENCOUNTER 2023-07-28 12:29 | Outpatient (AMB) | payer MEDICARE, MEDICAID, SELFPAY ==
[2023-07-28 12:31] VITALS: BP 100/68; PULSE 68; O2SAT 93; BMI 42.8
--- NOTE | 2023-07-28 12:31 | MHC.PC.OV ---
Vital Signs 07/28/23 12:31 Height 5 ft Weight 219 lb BMI 42.8 BP 100/68 Blood Pressure Location Rt brachial Position Sitting Pulse 68 Pulse Source Pulse Oximeter Pulse Oximetry (%) 93 Oxygen Delivery Method Room Air Intake Visit Reasons: 10 day follow up Allergies silver [From TEGADERM AG MESH] Allergy (Unknown, Verified 07/28/23 12:31) RASH transparent dressing Allergy (Unknown, Verified 07/28/23 12:31) skin irritation sensitivity haloperidol [From HALDOL] Adverse Reaction (Intermediate, Verified 07/28/23 12:31) UNKNOWN Tegaderm CHG dressing: Allergy (Unknown, Uncoded 06/03/23 09:55) skin irritation Haldol Adverse Reaction (Unknown, Uncoded 06/03/23 09:55) paradoxical effect Medication List - Last Reconciled 07/28/23 by Galen Xie MD acetaminophen 325 mg PO BID PRN 30 days atenolol 25 mg PO QAM [address]-ER 9 mg (3 x 3 mg) PO DAILY calcium citrate-vitamin D3 315 mg-5 mcg (200 unit) (Calcium Citrate + D) 1 tab PO QAM 90 days cetirizine (Zyrtec) 10 mg PO DAILY 90 days cholecalciferol (vitamin D3) (Vitamin D3) 50 mcg PO QAM 90 days famotidine 40 mg PO .QHS fluoxetine 20 mg PO DAILY fluticasone propionate 50 mcg/actuation 1 spray intranasal BEDTIME 30 days folic acid 1 mg PO QAM 90 days hydroxyzine HCl 25 mg PO BID mercaptopurine 50 mg PO . daily q am multivitamin 1 tab PO DAILY naltrexone 50 mg PO DAILY olanzapine (Zyprexa) 5 mg PO BEDTIME omega 0-ryx-bzs-fish oil 300-1,000 mg 1 cap orally in am, noon and pm; 90 days polyethylene glycol 3350 8.5 grams PO DAILY 30 days rosuvastatin (Crestor) 5 mg PO .QHS ustekinumab (Stelara) 90 mg subcut Q8W Tobacco use date assessed: 04/21/23 Dental Screening Dental Screen Date: 04/21/23 HPI 10 day follow up HPI Details Patient is 28-year-old female with a history of Prader-Willi syndrome, autism, morbid obesity, chronic vaginal irritation managed by OBGYN, Crohn's disease, currently seeing Gastroenterology [facility], major depression, psychiatric illness, managed by Psychiatry, hypertension, obstructive sleep apnea, varicosities lower extremity, PTSD, chronic GERD, vitamin-D deficiency, constipation. Patient has been having increasing daytime somnolence She has not able to use CPAP machine at night due to habit of biting into mask She is also taking psychiatric medication which are causing drowsiness Staff member are doing their best to keep her awake during the day so she can sleep at night She is also in need of dietitian consultation for morbid obesity, we will book appointment for that Environmental allergies, continue Zyrtec in the morning Last time she was evaluated 2 weeks ago I did prescribe antibiotic for possible sinus infection Today she came in with a different stopped member who tells me that she had a tooth infection and it has been addressed by dentist already Blood pressure is controlled Patient is due for labs Patient had number of appointments coming up in next 2 months Staff member tells me that her guardian is asking lot of questions I have told staff member that guardian should come in with patient so they can stay up-to-date on patient's health They gave me name of the guardian and telephone number We will set up a telemedicine visit in the presence of guardian so they are concerned can be addressed Patient is seeing Dr. Grove for sleep apnea Dr. Woodward for peripheral vascular disease Gastroenterology for Crohn's disease And OBGYN for her regular checkups Psychiatry for psychiatric needs. 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 Mother No problems noted. Social History Household Members: Other Housing: Other Do you presently have visiting nurse or other home services: Yes Alcohol intake: never Comment: No complaints of headache Patient Tobacco Use Status: Never used Tobacco e-Cigarette/Vaping Use: Never Used Second Hand Smoke Exposure: No service: No Current occupational status: disabled Cognitive needs: No Hearing needs: No Vision needs: Yes Questionnaire Thrive Questionnaire Date Thrive assessed: 04/21/23 BEVERLEY-7 AMB Questionnaire BEVERLEY-7 Date BEVERLEY - 7 assessed: 04/21/23 Source: Developed by Drs. Lucian Garcia, Claudia Diaz, Edi Moore and colleagues, with an educational brian from [employer]. Review of Systems Const Denies chills and Denies fever(s) ENT Denies epistaxis Card Denies chest pain Resp Denies chest congestion, Denies cough and Denies hemoptysis GI Denies diarrhea and Denies nausea Skin/Breast Denies rash Neuro Reports no additional complaints Psych Reports no additional complaints Endo Reports no additional complaints Physical exam (Primary Care) Vital Signs: Last Vital Signs Pulse 68 07/28/23 12:31 BP 100/68 07/28/23 12:31 Pulse Ox 93 07/28/23 12:31 Oxygen Delivery Method Room Air 07/28/23 12:31 BMI result Body Mass Index 42.8 Tobacco/Smoking Status: Tobacco use Status Tobacco use date assessed 04/21/23 07/28/23 12:33 Patient Tobacco Use Status Never used Tobacco 07/28/23 12:33 e-Cigarette/Vaping Use Never Used 07/28/23 12:33 Thrive Assessment: Date of Thrive Assessment Date Thrive assessed 04/21/23 07/28/23 12:33 Const General: cooperative, comfortable and no acute distress HENMT Head: Yes normocephalic Eyes General: appearance normal, both eyes and all related structures Neck Neck: Yes supple Resp Effort & Inspection: normal respiratory effort, no cough and no stridor Cardio Rhythm: regular rhythm Heart sounds: S1 normal heart sound present and S2 normal heart sound present Skin Other: Scratch mitch on nose, left side of neck, need to clip nails General skin exam: turgor normal Neuro General: tone normal and moves all extremities Assessment and Plan Assessment & Plan (1) Hypertension, essential: Code(s): I10 - Essential (primary) hypertension (2) Prader-Willi syndrome: Comment: Patient has developmental disorder secondary to Prader Willi Syndrome Code(s): Q87.11 - Prader-Willi syndrome (3) Iron deficiency: Code(s): E61.1 - Iron deficiency (4) Crohn's disease: Code(s): K50.90 - Crohn's disease, unspecified, without complications Qualifiers: Digestive disease complication type: without complication Gastrointestinal tract location: large intestine Qualified Code(s): K50.10 - Crohn's disease of large intestine without complications (5) Chronic constipation: Code(s): K59.09 - Other constipation (6) Anemia: Code(s): D64.9 - Anemia, unspecified Qualifiers: Anemia type: iron deficiency Iron deficiency anemia type: chronic blood loss Qualified Code(s): D50.0 - Iron deficiency anemia secondary to blood loss (chronic) (7) Vitamin D deficiency: Code(s): E55.9 - Vitamin D deficiency, unspecified (8) Chronic GERD: Code(s): K21.9 - Gastro-esophageal reflux disease without esophagitis (9) LFT elevation: Code(s): R79.89 - Other specified abnormal findings of blood chemistry (10) Psychiatric illness: Code(s): F99 - Mental disorder, not otherwise specified (11) Morbid obesity: Comment: Patient has underlying developmental disorder, She is morbidly obese, with typical round face and narrow oropharynx, Mallampati class 4. Difficult for her to lose weight. Code(s): E66.01 - Morbid (severe) obesity due to excess calories (12) KARLA (obstructive sleep apnea): Comment: SHE IS A CONFIRMED CASE OF SEVERE OBSTRUCTIVE SLEEP APNEA. CPAP TITRATION STUDY DETERMINED THAT SHE NEEDS BY BI-LEVEL CPAP WITH PRESSURE SETTING 20/16 CM. SHE IS NOT ABLE TO USE THE CPAP SHE BITES ON THE MASK AND EATS THE PLASTIC CHIPS, SIMILARLY SHE ALSO BITES ON THE NASAL CANNULA AND CANNOT USE THE OXYGEN. UNDER THE CIRCUMSTANCES THERE IS NO OTHER PRACTICAL SOLUTION AT THIS TIME. EVANTUALLY AT SOME POINT SHE MAY NEED PERMANENT TRACHEOSTOMY FOR TREATMENT OF HER KARLA. I WILL CHECK OR EVERY 6 MINUTES. Code(s): G47.33 - Obstructive sleep apnea (adult) (pediatric) (13) Major depression, recurrent: Code(s): F33.9 - Major depressive disorder, recurrent, unspecified Qualifiers: Active/Remission status: currently active Major depression episode severity: moderate Qualified Code(s): F33.1 - Major depressive disorder, recurrent, moderate (14) Environmental allergies: Code(s): Z91.09 - Other allergy status, other than to drugs and biological substances (15) Peripheral vascular disease: Code(s): I73.9 - Peripheral vascular disease, unspecified Plan Patient is 28-year-old female with a history of Prader-Willi syndrome, autism, morbid obesity, chronic vaginal irritation managed by OBGYN, Crohn's disease, currently seeing Gastroenterology [facility], major depression, psychiatric illness, managed by Psychiatry, hypertension, obstructive sleep apnea, varicosities lower extremity, PTSD, chronic GERD, vitamin-D deficiency, constipation. Patient has been having increasing daytime somnolence She has not able to use CPAP machine at night due to habit of biting into mask She is also taking psychiatric medication which are causing drowsiness Staff member are doing their best to keep her awake during the day so she can sleep at night She is also in need of dietitian consultation for morbid obesity, we will book appointment for that Environmental allergies, continue Zyrtec in the morning Last time she was evaluated 2 weeks ago I did prescribe antibiotic for possible sinus infection Today she came in with a different stopped member who tells me that she had a tooth infection and it has been addressed by dentist already Blood pressure is controlled Patient is due for labs Patient had number of appointments coming up in next 2 months Staff member tells me that her guardian is asking lot of questions I have told staff member that guardian should come in with patient so they can stay up-to-date on patient's health They gave me name of the guardian and telephone number We will set up a telemedicine visit in the presence of guardian so they are concerned can be addressed Patient is seeing Dr. Grove for sleep apnea Dr. Woodward for peripheral vascular disease Gastroenterology for Crohn's disease And OBGYN for her regular checkups Psychiatry for psychiatric needs. Name of guardian is Sarah Alberts [phone] 45 minutes spent in care this patient Including [id number] with patient and caretakers Signing and feeling Paperwork reviewing medical information answering all questions And coordination of care Orders: Orders Comprehensive Met. Panel Today D64.9 - Anemia, unspecified, E55.9 - Vitamin D deficiency, unspecified, E61.1 - Iron deficiency, E66.01 - Morbid (severe) obesity due to excess calories, F33.1 - Major depressive disorder, recurrent, moderate, F99 - Mental disorder, not otherwise specified, G47.33 - Obstructive sleep apnea (adult) (pediatric), I10 - Essential (primary) hypertension, I73.9 - Peripheral vascular disease, unspecified, K21.9 - Gastro-esophageal reflux disease without esophagitis, K50.10 - Crohn's disease of large intestine without complications, K59.09 - Other constipation, Q87.11 - Prader-Willi syndrome, R79.89 - Other specified abnormal findings of blood chemistry, Z91.09 - Other allergy status, other than to drugs and biological substances LDL Cholesterol Direct Today D64.9 - Anemia, unspecified, E55.9 - Vitamin D deficiency, unspecified, E61.1 - Iron deficiency, E66.01 - Morbid (severe) obesity due to excess calories, F33.1 - Major depressive disorder, recurrent, moderate, F99 - Mental disorder, not otherwise specified, G47.33 - Obstructive sleep apnea (adult) (pediatric), I10 - Essential (primary) hypertension, I73.9 - Peripheral vascular disease, unspecified, K21.9 - Gastro-esophageal reflux disease without esophagitis, K50.10 - Crohn's disease of large intestine without complications, K59.09 - Other constipation, Q87.11 - Prader-Willi syndrome, R79.89 - Other specified abnormal findings of blood chemistry, Z91.09 - Other allergy status, other than to drugs and biological substances UA CC w/rflx Micro + Cult Today D64.9 - Anemia, unspecified, E55.9 - Vitamin D deficiency, unspecified, E61.1 - Iron deficiency, E66.01 - Morbid (severe) obesity due to excess calories, F33.1 - Major depressive disorder, recurrent, moderate, F99 - Mental disorder, not otherwise specified, G47.33 - Obstructive sleep apnea (adult) (pediatric), I10 - Essential (primary) hypertension, I73.9 - Peripheral vascular disease, unspecified, K21.9 - Gastro-esophageal reflux disease without esophagitis, K50.10 - Crohn's disease of large intestine without complications, K59.09 - Other constipation, Q87.11 - Prader-Willi syndrome, R79.89 - Other specified abnormal findings of blood chemistry, Z91.09 - Other allergy status, other than to drugs and biological substances Complete Blood Count Auto Diff Today D64.9 - Anemia, unspecified, E55.9 - Vitamin D deficiency, unspecified, E61.1 - Iron deficiency, E66.01 - Morbid (severe) obesity due to excess calories, F33.1 - Major depressive disorder, recurrent, moderate, F99 - Mental disorder, not otherwise specified, G47.33 - Obstructive sleep apnea (adult) (pediatric), I10 - Essential (primary) hypertension, I73.9 - Peripheral vascular disease, unspecified, K21.9 - Gastro-esophageal reflux disease without esophagitis, K50.10 - Crohn's disease of large intestine without complications, K59.09 - Other constipation, Q87.11 - Prader-Willi syndrome, R79.89 - Other specified abnormal findings of blood chemistry, Z91.09 - Other allergy status, other than to drugs and biological substances TSH reflex Free T4 Today D64.9 - Anemia, unspecified, E55.9 - Vitamin D deficiency, unspecified, E61.1 - Iron deficiency, E66.01 - Morbid (severe) obesity due to excess calories, F33.1 - Major depressive disorder, recurrent, moderate, F99 - Mental disorder, not otherwise specified, G47.33 - Obstructive sleep apnea (adult) (pediatric), I10 - Essential (primary) hypertension, I73.9 - Peripheral vascular disease, unspecified, K21.9 - Gastro-esophageal reflux disease without esophagitis, K50.10 - Crohn's disease of large intestine without complications, K59.09 - Other constipation, Q87.11 - Prader-Willi syndrome, R79.89 - Other specified abnormal findings of blood chemistry, Z91.09 - Other allergy status, other than to drugs and biological substances Coding Level of Care Code Est Pt Level 5 (71732) Complex EM visit Add On G2211 Diagnoses Hypertension, essential I10 Prader-Willi syndrome Q87.11 Iron deficiency E61.1 Crohn's disease of large intestine without complication K50.10 Digestive disease complication type: without complication Gastrointestinal tract location: large intestine Chronic constipation K59.09 Iron deficiency anemia due to chronic blood loss D50.0 Anemia type: iron deficiency Iron deficiency anemia type: chronic blood loss Vitamin D deficiency E55.9 Chronic GERD K21.9 LFT elevation R79.89 Psychiatric illness F99 Morbid obesity E66.01 KARLA (obstructive sleep apnea) G47.33 Moderate episode of recurrent major depressive disorder F33.1 Active/Remission status: currently active Major depression episode severity: moderate Environmental allergies Z91.09 Peripheral vascular disease I73.9
== END 2023-07-28 13:33 | disposition home or self-care (01) ==
PROVIDERS: PCP Internal Medicine; Visit Provider Internal Medicine
DX: K50.10 Crohn's disease of large intestine without complications (principal); E66.01 Morbid (severe) obesity due to excess calories; F33.1 Major depressive disorder, recurrent, moderate; Z68.41 Body mass index [BMI] 40.0-44.9, adult; I73.9 Peripheral vascular disease, unspecified; I10 Essential (primary) hypertension; Q87.11 Prader-Willi syndrome; E61.1 Iron deficiency; K59.09 Other constipation; D50.0 Iron deficiency anemia secondary to blood loss (chronic); E55.9 Vitamin D deficiency, unspecified; K21.9 Gastro-esophageal reflux disease without esophagitis
CPT/HCPCS: 99215; G2211

== ENCOUNTER 2023-07-28 13:03 | Outpatient (REF) | payer MEDICARE, MEDICAID, SELFPAY ==
[2023-07-28 16:11] LABS: MANUAL DIFF FLAG NO
[2023-07-28 16:26] LABS: Basophils Percent Auto 0.8 % (0-2); Eosinophils Absolute Auto 0.1 X10*3/uL (0.0-0.4); Eosinophils Percent Auto 3.6 % (0-4); Hematocrit 49.7 % (37.0-47.0); Imm Gran Abs Auto 0.01 X10*3/uL (0.00-0.03); Imm Gran Pct Auto 0.3 % (0.0-0.4); Lymphocytes Absolute Auto 1.1 X10*3/uL (1.2-4.9); Mean Corpuscular HGB Conc 32.2 g/dl (31.0-35.0); Mean Corpuscular Hemoglobin 29.5 pg (27.0-33.0); Mean Corpuscular Volume 91.5 fL (80.0-98.0); Mean Platelet Volume 12.4 fL (9.4-12.3); Monocytes Absolute Auto 0.3 X10*3/uL (0.1-1.2); Monocytes Percent Auto 7.6 % (2-11); Neutrophils Absolute Auto 2.4 x10*3/uL (2.0-8.3); Neutrophils Percent Auto 60.7 % (45-73); Platelet Count 132 X10*3/uL (160-400); Red Blood Count 5.43 X10*6/uL (4.20-5.50); Red Cell Distribution Width 16.2 % (11.0-16.0); White Blood Count 3.9 X10*3/uL (4.8-10.8)
[2023-07-28 17:07] LABS: Alanine Aminotransferase 95 U/L (0-31); Albumin Level 3.9 g/dL (3.5-5.0); Alkaline Phosphatase 40 U/L (39-117); Anion Gap 17 (12-20); Aspartate Amino Transferase 70 U/L (5-31); Bilirubin Total 0.5 mg/dL (0.0-1.0); Blood Urea Nitrogen 19 mg/dL (9-16); Calcium 9.9 mg/dL (8.4-10.2); Carbon Dioxide 25 mmol/L (22-29); Chloride 104 mmol/L (96-108); Estimated Glomerular Filt Rate > 60; Glucose Random 68 mg/dL (60-115); Potassium 4.7 mmol/L (3.3-5.1); Sodium 141 mmol/L (135-145); Total Protein 7.4 g/dL (6.5-8.0)
[2023-07-28 18:00] LABS: TSH reflex Free T4 2.29 uIU/mL (0.32-4.0)
== END 2023-07-28 13:04 | disposition home or self-care (01) ==
LOC: HO.HMGCLDS 13:03
PROVIDERS: PCP Internal Medicine; Visit Provider Internal Medicine
DX: I10 Essential (primary) hypertension (principal); Q87.11 Prader-Willi syndrome; E61.1 Iron deficiency; K50.10 Crohn's disease of large intestine without complications; K59.09 Other constipation; D64.9 Anemia, unspecified; E55.9 Vitamin D deficiency, unspecified; K21.9 Gastro-esophageal reflux disease without esophagitis; R79.89 Other specified abnormal findings of blood chemistry; F99 Mental disorder, not otherwise specified; E66.01 Morbid (severe) obesity due to excess calories; G47.33 Obstructive sleep apnea (adult) (pediatric); F33.1 Major depressive disorder, recurrent, moderate; Z91.09 Other allergy status, other than to drugs and biological substances; I73.9 Peripheral vascular disease, unspecified
CPT/HCPCS: 36415; 80053; 83721; 84443; 85025

== ENCOUNTER 2023-07-29 18:00 | Outpatient (REF) | payer MEDICARE, MEDICAID, SELFPAY ==
[2023-07-30 14:12] LABS: Appearance Urine Cloudy; Color Urine Yellow; Glucose Urine UA Negative (Negative); Leukocyte Esterase Urine Small (1+) (Negative); Nitrite Urine Negative (Negative); PH 5.5 (5.0-9.0); Specific Gravity - Urine 1.025 (1.005-1.025); UMIC TRIGGER UACC YES; Urine Blood Negative (Negative); Urine Ketones 40 mg/dL (Negative); Urine Protein 100 (2+) mg/dL (Neg-Trace)
[2023-07-30 14:16] LABS: Bacteria Urine 4+ (None Seen); RBC Urine 0-2 /HPF (0-2); UACC Culture Trigger YES; WBC Urine 21-50 /HPF (0-5)
== END 2023-07-29 18:01 | disposition home or self-care (01) ==
LOC: HO.HMGCLNP 18:00
PROVIDERS: PCP Internal Medicine; Visit Provider Internal Medicine
DX: I10 Essential (primary) hypertension (principal); R79.89 Other specified abnormal findings of blood chemistry; R82.90 Unspecified abnormal findings in urine
CPT/HCPCS: 81001; 81003; 87086; 87088; 87186

== ENCOUNTER 2023-08-06 07:09 | Outpatient (AMB) | payer MEDICARE, MEDICAID, SELFPAY ==
--- NOTE | 2023-08-06 07:39 | MHC.PC.OV ---
Intake Visit Reasons: Discuss Labs~[phone] Allergies silver [From TEGADERM AG MESH] Allergy (Unknown, Verified 07/28/23 12:31) RASH transparent dressing Allergy (Unknown, Verified 07/28/23 12:31) skin irritation sensitivity haloperidol [From HALDOL] Adverse Reaction (Intermediate, Verified 07/28/23 12:31) UNKNOWN Tegaderm CHG dressing: Allergy (Unknown, Uncoded 06/03/23 09:55) skin irritation Haldol Adverse Reaction (Unknown, Uncoded 06/03/23 09:55) paradoxical effect Medication List - Last Reconciled 08/06/23 by Galen Xie MD acetaminophen 325 mg PO BID PRN 30 days atenolol 25 mg PO QAM [address]-ER 9 mg (3 x 3 mg) PO DAILY calcium citrate-vitamin D3 315 mg-5 mcg (200 unit) (Calcium Citrate + D) 1 tab PO QAM 90 days cetirizine (Zyrtec) 10 mg PO DAILY 90 days cholecalciferol (vitamin D3) (Vitamin D3) 50 mcg PO QAM 90 days famotidine 40 mg PO .QHS fluoxetine 20 mg PO DAILY fluticasone propionate 50 mcg/actuation 1 spray intranasal BEDTIME 30 days folic acid 1 mg PO QAM 90 days hydroxyzine HCl 25 mg PO BID levofloxacin 500 mg PO DAILY 3 days mercaptopurine 50 mg PO . daily q am multivitamin 1 tab PO DAILY naltrexone 50 mg PO DAILY olanzapine (Zyprexa) 5 mg PO BEDTIME omega 5-ljb-ilf-fish oil 300-1,000 mg 1 cap orally in am, noon and pm; 90 days polyethylene glycol 3350 8.5 grams PO DAILY 30 days rosuvastatin (Crestor) 5 mg PO .QHS ustekinumab (Stelara) 90 mg subcut Q8W Tobacco use date assessed: 04/21/23 Dental Screening Dental Screen Date: 04/21/23 HPI Discuss Labs~[phone] HPI Details Patient is 28-year-old female this is a telemedicine visit Patient's guardian Sarah Alberts wanted an update on patient's condition She was concerned that Samina is excessively sleepy during the day Explained to patient that patient have a sleep apnea and we are having difficulty keeping the mask on due to her chewing on the upper If she is not going to sleep well at night then she will be feeling sleepy during the day I also see hydroxyzine in her medication list 25 mg b.i.d. That could be also adding to her somnolence, she will discuss with the hydroxyzine prescriber. Labs were discussed as well LFTs are slightly worse it could be because Samina has gained weight since 2020 she was 89 and now she is due 19 Her weight does fluctuate, recently she has been exercising and gradually losing weight. She does have appointment with gastroenterology September 06, for her Stelera injection, they will address the LFTs as well Guardian was given time to ask questions, all questions were explained. 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 Mother No problems noted. Social History Household Members: Other Housing: Other Do you presently have visiting nurse or other home services: Yes Alcohol intake: never Comment: No complaints of headache Patient Tobacco Use Status: Never used Tobacco e-Cigarette/Vaping Use: Never Used Second Hand Smoke Exposure: No service: No Current occupational status: disabled Cognitive needs: No Hearing needs: No Vision needs: Yes Questionnaire Thrive Questionnaire Date Thrive assessed: 04/21/23 BEVERLEY-7 AMB Questionnaire BEVERLEY-7 Date BEVERLEY - 7 assessed: 04/21/23 Source: Developed by Drs. Lucian Garcia, Claudia Diaz, Edi Moore and colleagues, with an educational brian from [employer]. Review of Systems Const Denies chills and Denies fever(s) ENT Denies epistaxis and Denies nasal discharge Card Denies chest pain Resp Denies chest congestion, Denies cough and Denies hemoptysis GI Denies diarrhea and Denies nausea Skin/Breast Denies rash Neuro Reports no additional complaints Psych Reports no additional complaints Endo Reports no additional complaints Physical exam (Primary Care) Tobacco/Smoking Status: Tobacco use Status Tobacco use date assessed 04/21/23 08/06/23 07:39 Patient Tobacco Use Status Never used Tobacco 08/06/23 07:39 e-Cigarette/Vaping Use Never Used 08/06/23 07:39 Thrive Assessment: Date of Thrive Assessment Date Thrive assessed 04/21/23 08/06/23 07:39 Telehealth Telehealth Telehealth Platform: [employer] Location of provider rendering services: practice address Location of patient: address on file Patient Identification confirmed using: Name, : Yes Telehealth method: video (Attempted) Patient verbally consented to treatment: Yes Patient verbally consented to billing insurance company: Yes Patient informed of any privacy concerns related to visit: Yes Assessment and Plan Assessment & Plan (1) Prader-Willi syndrome: Comment: Patient has developmental disorder secondary to Prader Willi Syndrome Code(s): Q87.11 - Prader-Willi syndrome (2) Crohn's disease: Code(s): K50.90 - Crohn's disease, unspecified, without complications Qualifiers: Digestive disease complication type: without complication Gastrointestinal tract location: large intestine Qualified Code(s): K50.10 - Crohn's disease of large intestine without complications (3) LFT elevation: Code(s): R79.89 - Other specified abnormal findings of blood chemistry (4) KARLA (obstructive sleep apnea): Comment: SHE IS A CONFIRMED CASE OF SEVERE OBSTRUCTIVE SLEEP APNEA. CPAP TITRATION STUDY DETERMINED THAT SHE NEEDS BY BI-LEVEL CPAP WITH PRESSURE SETTING 20/16 CM. SHE IS NOT ABLE TO USE THE CPAP SHE BITES ON THE MASK AND EATS THE PLASTIC CHIPS, SIMILARLY SHE ALSO BITES ON THE NASAL CANNULA AND CANNOT USE THE OXYGEN. UNDER THE CIRCUMSTANCES THERE IS NO OTHER PRACTICAL SOLUTION AT THIS TIME. EVANTUALLY AT SOME POINT SHE MAY NEED PERMANENT TRACHEOSTOMY FOR TREATMENT OF HER KARLA. I WILL CHECK OR EVERY 6 MINUTES. Code(s): G47.33 - Obstructive sleep apnea (adult) (pediatric) Plan Patient is 28-year-old female this is a telemedicine visit Samina is present during this visit Patient's guardian Sarah Mitchellyazmartell wanted an update on patient's condition She was concerned that Samina is excessively sleepy during the day Explained to patient that patient have a sleep apnea and we are having difficulty keeping the mask on due to her chewing on the upper If she is not going to sleep well at night then she will be feeling sleepy during the day I also see hydroxyzine in her medication list 25 mg b.i.d. That could be also adding to her somnolence, she will discuss with the hydroxyzine prescriber. Labs were discussed as well LFTs are slightly worse it could be because Samina has gained weight since 2020 she was 89 and now she is due 19 Her weight does fluctuate, recently she has been exercising and gradually losing weight. She does have appointment with gastroenterology September 06, for her Stelera injection, they will address the LFTs as well Guardian was given time to ask questions, all questions were explained. 20 minutes spent in care of this patient Coding Level of Care Code Tele Est Pt Level 3 (82587) Diagnoses Prader-Willi syndrome Q87.11 Crohn's disease of large intestine without complication K50.10 Digestive disease complication type: without complication Gastrointestinal tract location: large intestine LFT elevation R79.89 KARLA (obstructive sleep apnea) G47.33
== END 2023-08-06 07:58 | disposition home or self-care (01) ==
LOC: HO.HMGC 07:09
PROVIDERS: PCP Internal Medicine; Visit Provider Internal Medicine
DX: K50.10 Crohn's disease of large intestine without complications (principal); Q87.11 Prader-Willi syndrome; R79.89 Other specified abnormal findings of blood chemistry; G47.33 Obstructive sleep apnea (adult) (pediatric)
CPT/HCPCS: 99213

== ENCOUNTER 2023-08-10 09:02 | Outpatient (AMB) | payer MEDICARE, MEDICAID, SELFPAY ==
[2023-08-10 09:04] VITALS: BMI 42.8
--- NOTE | 2023-08-10 09:04 | A.OFFVIS_ITS ---
Vital Signs 08/10/23 09:04 Height 5 ft Weight 219 lb BMI 42.8 Intake Visit Reasons: Effusion, right ankle and left ankle Intake Note: Pt re-referred for left foor swelling, has reduced since seen by PCP. Pt here with her 2 caretakers and states legs are doing okay, pt states her legs feel somewhat better after the procedure. Last time left foot was swelling it happened for 9 days, staff states she may have had it from the gym, exercising. Accompanied by: staff Allergies silver [From TEGADERM AG MESH] Allergy (Unknown, Verified 08/10/23 09:12) RASH transparent dressing Allergy (Unknown, Verified 08/10/23 09:12) skin irritation sensitivity haloperidol [From HALDOL] Adverse Reaction (Intermediate, Verified 08/10/23 09:12) UNKNOWN Tegaderm CHG dressing: Allergy (Unknown, Uncoded 08/10/23 09:12) skin irritation Haldol Adverse Reaction (Unknown, Uncoded 08/10/23 09:12) paradoxical effect HPI HPI Effusion, right ankle and left ankle: Details: Complex 27-year-old female who has a prior history of PICA syndrome and Prader- Willi presents for evaluation regarding swollen lower extremities. She has persistent swelling of the lower extremities. That being said she is obese with a BMI of 42.8. She has had prior venous ablation is with us in appears to be doing relatively well with that. She now presents to us for follow-up [facility] Medical History KARLA (obstructive sleep apnea) Somnolence, daytime Morbid obesity Pain of left lower extremity Swelling of left lower extremity Hypertension, essential Mood disorder Developmental delay, mild Vitamin D deficiency Anemia Iron deficiency PTSD (post-traumatic stress disorder) Anxiety Autistic disorder Chronic constipation Acute constipation Colitis Crohn's disease Prader-Willi syndrome Pica in adults Surgical History History of abdominal surgery History of throat surgery Family History Father No problems noted. Mother No problems noted. Social History Household Members: Other Housing: Other Do you presently have visiting nurse or other home services: Yes Alcohol intake: never Comment: No complaints of headache Patient Tobacco Use Status: Never used Tobacco e-Cigarette/Vaping Use: Never Used Second Hand Smoke Exposure: No service: No Current occupational status: disabled Cognitive needs: No Hearing needs: No Vision needs: Yes Review of Systems Const All systems reviewed & are unremarkable except as noted in HPI and below Reports no additional complaints ENT Reports Normal hearing present Card Denies chest pain, Denies chest pain at rest, Denies chest pain with activity and Denies pedal edema Resp Denies cough GI Denies abdominal pain Musc Denies abnormal gait, Denies muscle cramps and Denies radiating pain into limb Skin/Breast Denies skin ulcer and Denies wounds Neuro Reports Normal hearing present and Denies abnormal gait Psych Reports no additional complaints Physical Exam Vital Signs: BMI result Body Mass Index 42.8 Const General: cooperative, healthy appearing and comfortable Orientation/consciousness: oriented to person, oriented to place and oriented to time HEENT Head: Yes normal to inspection Neck Neck: Yes normal visual inspection Carotids: no bruits Chest Chest palpation & inspection: normal inspection of the chest Resp Effort & Inspection: normal respiratory effort and able to speak in complete sentences Auscultation: clear to auscultation bilaterally, no crackles, no rales, no rhonchi and no wheezes Cardio Rate: regular rate Rhythm: regular rhythm Heart sounds: S1 normal heart sound present and S2 normal heart sound present Bruits: no carotid bruits Peripheral pulses: Peripheral pulses 2+ throughout GI Inspection: Yes normal to inspection Skin Wounds: no wounds Hair: normal Neuro General: oriented to person, oriented to place and oriented to time Cranial nerves: Yes CN's II-XII intact bilaterally and Yes Normal hearing present Cognition (Neuro): normal cognition Motor exam (neuro): 5/5 motor strength present throughout Extrem Other: venous exam: +2 edema left greater than right. Left foot dorsal foot humping General: No clubbing, No cyanosis and Yes edema Psych Appearance: grossly normal Mental Status: mental status grossly normal Speech and movement: Normal speech and movement present Assessment & Plan Assessment & Plan (1) Varicose veins of right lower extremity with inflammation: Comment: 04/03/2022 - right small saphenous vein radiofrequency ablation Code(s): I83.11 - Varicose veins of right lower extremity with inflammation Category: Medical Plan: At the current time swelling seems to be improved. No additional intervention indicated (2) Varicose veins of left lower extremity with inflammation: Comment: 08/28/2022 - left small saphenous vein radiofrequency ablation Code(s): I83.12 - Varicose veins of left lower extremity with inflammation Category: Medical Plan: See above (3) Lymphedema: Code(s): I89.0 - Lymphedema, not elsewhere classified Category: Medical Plan: I do believe that the patient does have an element of lymphedema. She would potentially benefit from lymphedema pumps but due to her overall status and history of PICA syndrome safety is a concern for her. We will hold off. We did discuss routine conservative measures including compression elevation and exercise. She will follow up with us on an as-needed basis. Thank you for allowing us to assist in her care. Coding Level of Care Code Est Pt Level 3 (09848) Diagnoses Varicose veins of right lower extremity with inflammation I83.11 Varicose veins of left lower extremity with inflammation I83.12 Lymphedema I89.0
== END 2023-08-10 09:40 | disposition home or self-care (01) ==
PROVIDERS: PCP Internal Medicine; Visit Provider Surgery Vascular Surgery
DX: I83.11 Varicose veins of right lower extremity with inflammation (principal); I83.12 Varicose veins of left lower extremity with inflammation; I89.0 Lymphedema, not elsewhere classified
CPT/HCPCS: 99213

== ENCOUNTER → 2023-08-10 09:02 | Outpatient (BNVA) | payer MEDICARE, MEDICAID, SELFPAY | PROVIDERS: PCP Internal Medicine; Visit Provider Surgery Vascular Surgery | DX: I83.11 Varicose veins of right lower extremity with inflammation (principal); I83.12 Varicose veins of left lower extremity with inflammation; I89.0 Lymphedema, not elsewhere classified | CPT/HCPCS: 99212 ==

== ENCOUNTER 2023-09-07 09:57 | Outpatient (AMB) | payer MEDICARE, MEDICAID, SELFPAY ==
--- NOTE | 2023-09-07 10:02 | MHC.OFFVIS ---
Vital Signs 09/07/23 10:07 Height 5 ft Weight 214 lb 4.629 oz BMI 41.8 BP 98/54 L Blood Pressure Location Rt radial Position Sitting Pulse 54 Pulse Source Pulse Oximeter Pulse Oximetry (%) 94 Oxygen Delivery Method Room Air Intake Visit Reasons: 6 month follow up Intake Note: Tiki presents in office today for a scheduled 6 mos FUV. CC: Pt denies any significant sx or concerns. Pt reports that she had a small amount of blood when she wiped yesterday but she is not overly concerned about it. Python Django Developer Required: No Allergies silver [From TEGADERM AG MESH] Allergy (Unknown, Verified 09/07/23 10:06) RASH transparent dressing Allergy (Unknown, Verified 09/07/23 10:06) skin irritation sensitivity haloperidol [From HALDOL] Adverse Reaction (Intermediate, Verified 09/07/23 10:06) UNKNOWN Tegaderm CHG dressing: Allergy (Unknown, Uncoded 08/10/23 09:12) skin irritation Haldol Adverse Reaction (Unknown, Uncoded 08/10/23 09:12) paradoxical effect HPI HPI 6 month follow up: Details: LAST VISIT Chronic GERD Chronic constipation Crohn's disease Plan Will check calprotectin see if patient is in remission. She is not complaining of any abdominal pain or discomfort. Patient is constipated occasionally. She can use [id number] MiraLax or Dulcolax. Will refill of Stelara and mercaptopurine. Will arrange for patient to come in for injection. Nurse visit will be arranged for the 25 of March. Both patient and staff members are agreeable to plan of care and verbalizes understanding of instructions. They were given the opportunity to ask questions and all questions answered. ? Thank you for allowing me to participate in her care Orders Orders Calprotectin, Fecal 03/08/23 R15.9 Medications New ustekinumab (Stelara) 90 mg subcut Q8W 1 mL 2RF mercaptopurine 50 mg PO DAILY 90 tabs 2RF Refilled mercaptopurine 50 mg PO DAILY 90 tabs 2RF TODAY'S VISIT Patient is here today for follow-up. Patient is accompanied by 2 staff member. Patient has history of PICA and she constantly puts things in her mouth so she is watched very carefully. Patient reports that she has been feeling well. Moves her bowels without any issues. Denies any melena, hematochezia, unintentional weight loss or ribbon like stools. However patient does admit to having blood in her stool after wiping yesterday. Patient is not sure if she was constipated patient denies any nausea or vomiting. Reports to have good appetite. In July patient had lab work and she was found to have elevated liver enzymes overweight. Reports that she is not eating fatty foods, however admits to gaining weight in the past couple of years. Patient is scheduled for her Stelara injection tomorrow [facility] Medical History (Updated 09/07/23 @ 10:43 by Lexie aSlter [facility]) Transaminitis KARLA (obstructive sleep apnea) Somnolence, daytime Morbid obesity Pain of left lower extremity Swelling of left lower extremity Hypertension, essential Mood disorder Developmental delay, mild Vitamin D deficiency Anemia Iron deficiency PTSD (post-traumatic stress disorder) Anxiety Autistic disorder Chronic constipation Acute constipation Colitis Crohn's disease Prader-Willi syndrome Pica in adults Surgical History History of abdominal surgery History of throat surgery Family History Father No problems noted. Mother No problems noted. Social History Household Members: Other Housing: Other Do you presently have visiting nurse or other home services: Yes Alcohol intake: never Comment: No complaints of headache Patient Tobacco Use Status: Never used Tobacco e-Cigarette/Vaping Use: Never Used Second Hand Smoke Exposure: No service: No Current occupational status: disabled Cognitive needs: No Hearing needs: No Vision needs: Yes Review of Systems Const Denies weight gain and Denies weight loss ENT Reports no additional complaints, Denies dysphagia and Denies odynophagia Card Reports no additional complaints Resp Reports no additional complaints GI Denies abdominal pain, Denies belching, Denies melena, Denies bloating, Denies change in bowel habits, Denies dysphagia, Denies excessive flatus, Denies dyspepsia, Denies heartburn, Denies diarrhea, Denies loose stools, Denies nausea, Denies odynophagia and Denies vomiting Musc Reports no additional complaints Neuro Reports no additional complaints Psych Reports no additional complaints Endo Reports no additional complaints Physical Exam Vital Signs: Last Vital Signs Pulse 54 09/07/23 10:07 BP 98/54 L 09/07/23 10:07 Pulse Ox 94 09/07/23 10:07 Oxygen Delivery Method Room Air 09/07/23 10:07 BMI result Body Mass Index 41.8 Const General: no acute distress Resp Effort & Inspection: normal respiratory effort, able to speak in complete sentences, no tracheal deviation and symmetric chest movement Auscultation: clear to auscultation bilaterally Cardio Rate: regular rate GI Inspection: Yes normal to inspection and Yes obesity Palpation (GI): Soft to palpation Auscultation: normal bowel sounds General: Yes no CVA tenderness Back/Spine/Pelvis Back: no CVA tenderness Skin General skin exam: elasticity normal, turgor normal and dry skin Psych Appearance: grossly normal Results Reviewed Results Reviewed: Laboratory Tests 03/25/23 07/28/23 07:45 13:11 AST 70 H ALT 95 H Stool Calprotectin 3360 H Assessment & Plan Assessment & Plan (1) Crohn's disease: Code(s): K50.90 - Crohn's disease, unspecified, without complications Category: Medical Qualifiers: Digestive disease complication type: without complication Gastrointestinal tract location: large intestine Qualified Code(s): K50.10 - Crohn's disease of large intestine without complications (2) Transaminitis: Code(s): R74.01 - Elevation of levels of liver transaminase levels Category: Medical (3) Constipation by delayed colonic transit: Code(s): K59.01 - Slow transit constipation Category: Medical Plan Recently elevated liver enzymes. Will send patient to repeat blood work and will rule out autoimmune disorders. Will send patient for liver ultrasound with elastography. Patient was encouraged to try to lose weight, eat more protein and less carbs and fat. Follow-up for injections. Continue MiraLax daily. Increase fluid intake and activity to promote better bowel motility. Avoid dietary triggers and late night snacking. Staying upright for minimum 3 hours after meals discussed with patient. Patient will follow-up in the office in 3-4 months, sooner on as needed basis. She is agreeable to this plan and verbalizes understanding of instructions. She was given the opportunity to ask questions and all questions answered. Thank you for allowing me to participate in her care Orders: Orders Alpha Fetoprotein 09/07/23 R79.89 - Other specified abnormal findings of blood chemistry Calprotectin, Fecal 09/07/23 R15.9 - Full incontinence of feces IRON PROFILE 09/07/23 D64.9 - Anemia, unspecified Ferritin 09/07/23 R74.8 - Abnormal levels of other serum enzymes Mitochondrial Antibody 09/07/23 R79.89 - Other specified abnormal findings of blood chemistry TSH reflex Free T4 09/07/23 K59.00 - Constipation, unspecified Hemoglobin A1c 09/07/23 E11.9 - Type 2 diabetes mellitus without complications Hepatitis A,B,C Profile 09/07/23 R79.89 - Other specified abnormal findings of blood chemistry Prothrombin Time INR 09/07/23 R74.8 - Abnormal levels of other serum enzymes C Reactive Protein 09/07/23 K58.9 - Irritable bowel syndrome without diarrhea Liver Fibrosis Pnl 09/07/23 R74.8 - Abnormal levels of other serum enzymes Liver Panel 09/07/23 R74.01 - Elevation of levels of liver transaminase levels Smooth Muscle Antibody 09/07/23 R79.89 - Other specified abnormal findings of blood chemistry Vitamin D 25-OH (D2 and D3) 09/07/23 E55.9 - Vitamin D deficiency, unspecified Vitamin B12 and Folate 09/07/23 R19.7 - Diarrhea, unspecified US abdomen limited 09/07/23 R79.89 - Other specified abnormal findings of blood chemistry Medications: Discontinued budesonide DR-ER 3 tablets every day for 30 days, then 2 tablets every day for 30 days then 1 tablet daily for 30 days Discontinued Reason: Patient Completed Course 9 mg (3 x 3 mg) PO DAILY 180 ea 0RF Coding Level of Care Code Est Pt Level 4 (52449) Diagnoses Crohn's disease of large intestine without complication K50.10 Digestive disease complication type: without complication Gastrointestinal tract location: large intestine Transaminitis R74.01 Constipation by delayed colonic transit K59.01 Time Spent (min) 35 Comment 20 minutes spent with patient and additional 15 minutes spent reviewing her records
[2023-09-07 10:07] VITALS: BP 98/54; PULSE 54; O2SAT 94; BMI 41.8
== END 2023-09-07 11:03 | disposition home or self-care (01) ==
PROVIDERS: PCP Internal Medicine; Visit Provider Nurse Practitioner Family
DX: K50.10 Crohn's disease of large intestine without complications (principal); R74.01 Elevation of levels of liver transaminase levels; K59.01 Slow transit constipation
CPT/HCPCS: 99214

== ENCOUNTER 2023-09-07 09:57 | Outpatient (REF) | payer MEDICARE, MEDICAID, SELFPAY ==
[2023-09-07 12:12] LABS: Estimated Average Glucose 117 mg/dL; Hemoglobin A1c % 5.7 % (<6.0); Prothrombin Time 11.9 SEC (11.1-13.3)
[2023-09-07 13:07] LABS: Alanine Aminotransferase 55 U/L (0-31); Albumin Level 3.9 g/dL (3.5-5.0); Alkaline Phosphatase 44 U/L (39-117); Aspartate Amino Transferase 37 U/L (5-31); Bilirubin Direct 0.1 mg/dL (0.0-0.5); Bilirubin Total 0.4 mg/dL (0.0-1.0); C Reactive Protein 0.52 mg/dL (< or = 0.50); Iron 54 mcg/dL (30-160); Percent Iron Saturation 19 % (15-50); Total Iron Binding Capacity 281 mcg/dL (228-428); Total Protein 7.1 g/dL (6.5-8.0); Unsaturated Iron Binding 227 ug/dL
[2023-09-07 13:11] LABS: Ferritin 26 ng/mL (10-122); TSH reflex Free T4 3.34 uIU/mL (0.32-4.0)
[2023-09-07 13:32] LABS: Folate 17.9 ng/mL (> or = 4.0); Vitamin B12 456 pg/mL (200-900)
[2023-09-08 08:35] LABS: HBS Num1 0.52 mIU/mL (0-7.99); HBc Num1 0.13 S/CO (0.00-0.79); HBsAGNum1 0.29 S/CO (0.00-0.99); Hepatitis B Core Antibody Nonreactive (Nonreactive); Hepatitis B Surface Antigen Negative (Negative); ~Hepatitis A Antibody IgM Nonreactive (Nonreactive); ~Hepatitis B Surface Antibody NONREACTIVE (Nonreactive); ~Hepatitis C Antibody Nonreactive (Nonreactive)
[2023-09-09 13:07] LABS: Alpha Fetoprotein 3.8 ng/mL
[2023-09-10 08:07] LABS: Mitochondrial Antibodies NEGATIVE (NEGATIVE)
[2023-09-10 22:48] LABS: Smooth Muscle Antibody <20 U (<20)
[2023-09-11 15:08] LABS: Vitamin D 25-OH, D2 <4 ng/mL; Vitamin D 25-OH, D3 47 ng/mL; Vitamin D 25-OH, Total 47 ng/mL (30-100)
[2023-09-22 19:04] LABS: FIB-ALT 41 U/L (6-29); FIB-Alpha-2-Macroglobulin 206 mg/dL (106-279); FIB-Apolipoprotein A1 121 mg/dL (101-198); FIB-GGT 14 U/L (3-40); FIB-Haptoglobin 130 mg/dL (43-212); FIB-Total Bilirubin 0.4 mg/dL (0.2-1.2); Liver Fibrosis Score 0.09; Liver Fibrosis Stage F0; Nec Inflam Act Grade A0-A1; Nec Inflam Act Score 0.17
== END 2023-09-07 09:58 | disposition home or self-care (01) ==
LOC: HO.LAB 09:57
PROVIDERS: PCP Internal Medicine; Visit Provider Nurse Practitioner Family
DX: K50.10 Crohn's disease of large intestine without complications (principal); R74.01 Elevation of levels of liver transaminase levels; K59.01 Slow transit constipation; R79.89 Other specified abnormal findings of blood chemistry; R15.9 Full incontinence of feces; D64.9 Anemia, unspecified; R74.8 Abnormal levels of other serum enzymes; E11.9 Type 2 diabetes mellitus without complications; E55.9 Vitamin D deficiency, unspecified
CPT/HCPCS: 36415; 80076; 81596; 82105; 82306; 82607; 82728; 82746; 83036; 83540; 84443; 85610; 86015; 86140; 86381; 86704; 86706; 86709; 86803; 87340; 99212

== ENCOUNTER 2023-09-08 08:56 | Outpatient (AMB) | payer MEDICARE, MEDICAID, SELFPAY ==
--- NOTE | 2023-09-08 09:12 | AM.OFFVISNUR ---
Intake Intake Visit Reasons: Stelara Injection Allergies silver [From TEGADERM AG MESH] Allergy (Unknown, Verified 09/07/23 10:06) RASH transparent dressing Allergy (Unknown, Verified 09/07/23 10:06) skin irritation sensitivity haloperidol [From HALDOL] Adverse Reaction (Intermediate, Verified 09/07/23 10:06) UNKNOWN Tegaderm CHG dressing: Allergy (Unknown, Uncoded 08/10/23 09:12) skin irritation Haldol Adverse Reaction (Unknown, Uncoded 08/10/23 09:12) paradoxical effect Office Meds Stelara 90 mg/mL subcutaneous syringe Performing Provider: ROMEL Del Rio Performing Location: [facility] [place] [facility] Administered by: Leatha Evans RN on 09/08/23 09:12 Dose Route Admin Location Dispensed Lot Number Expiration Date [facility] Industrial Relations Director 90 mg subcut Right, Upper Arm 1 mL [id number] 01/26/26 [id number] [employer] Coding Level of Care Code Established Pt Est Pt Level 1 (43275) Patient Type Established Medical Decision Making Straight Forward Assessment & Plan Assessment & Plan Orders: Orders AMB Ustekinumab Injection Today K50.10 - Crohn's disease of large intestine without complications Medications: New Stelara (ustekinumab) 90 mg subcut ONCE 1 mL 0RF NS K50.10 - Crohn's disease of large intestine without complications Refilled ustekinumab (Stelara) 90 mg subcut Q8W 1 mL 2RF
== END 2023-09-08 09:14 | disposition home or self-care (01) ==
PROVIDERS: PCP Internal Medicine; Visit Provider Nurse Practitioner Family
DX: K50.10 Crohn's disease of large intestine without complications (principal)

== ENCOUNTER → 2023-09-08 08:56 | Outpatient (BNVA) | payer MEDICARE, MEDICAID, SELFPAY | PROVIDERS: PCP Internal Medicine; Visit Provider Nurse Practitioner Family | DX: K50.10 Crohn's disease of large intestine without complications (principal) | CPT/HCPCS: 96372; 99211; J3357 ==

== ENCOUNTER 2023-09-16 09:57 | Outpatient (REF) | payer MEDICARE, MEDICAID, SELFPAY ==
--- NOTE | ~2023-09-16 | US_ITS ---
EXAMINATION: US ABDOMEN LIMITED CLINICAL INFORMATION: Other specified abnormal findings of blood chemistry. COMPARISON: X-ray [facility] 09/15/2021 and 12/24/2020. CT abdomen and pelvis 02/19/2020. TECHNIQUE: Real-time imaging of the right upper quadrant abdominal viscera. Limited visualization due to bowel gas. FINDINGS: PANCREAS: Limited visualization of pancreatic tail and head. Imaged portion of pancreatic body is unremarkable. LIVER: Increased hepatic parenchymal heterogeneity and echogenicity could be associated with hepatocellular disease/hepatic steatosis and severely limits visualization. Correlation with liver function tests and clinical exam recommended to determine further management. GALLBLADDER: No gallstones. No gallbladder wall thickening. COMMON BILE DUCT: Normal in caliber measuring 0.20 cm in diameter. RIGHT KIDNEY: No hydronephrosis. No renal calculi. Limited visualization. The kidney measures 10.6 cm in maximum dimension. FREE FLUID: None. US/US abdomen limited IMPRESSION: Increased hepatic parenchymal heterogeneity and echogenicity could be associated with hepatocellular disease/hepatic steatosis and severely limits visualization. Correlation with liver function tests and clinical exam recommended to determine further management.
== END 2023-09-16 09:58 | disposition home or self-care (01) ==
LOC: HO.HMGCX 09:57
PROVIDERS: PCP Internal Medicine; Visit Provider Nurse Practitioner Family
DX: R79.89 Other specified abnormal findings of blood chemistry (principal)
CPT/HCPCS: 76705

== ENCOUNTER 2023-09-16 10:46 | Outpatient (AMB) | payer MEDICARE, MEDICAID, SELFPAY ==
[2023-09-16 10:57] VITALS: BP 122/76; PULSE 53; TEMP 36.3; O2SAT 95; BMI 41.6
--- NOTE | 2023-09-16 10:57 | AM.OFFWIN_ITS ---
Intake Vital Signs 09/16/23 10:57 Height 5 ft Weight 213 lb BMI 41.6 BP 122/76 Blood Pressure Location Lt brachial Position Sitting Pulse 53 Pulse Source Pulse Oximeter Temp 97.4 F Temp Source Temporal Artery Scan Pulse Oximetry (%) 95 Oxygen Delivery Method Room Air Intake Visit Reasons: EP Rash under breast/neck Intake Note: pt is here today for rash under breast and neck started 1 weeks ago Patient Tobacco Use Status: Never used Tobacco Allergies silver [From TEGADERM AG MESH] Allergy (Unknown, Verified 09/16/23 11:10) RASH transparent dressing Allergy (Unknown, Verified 09/16/23 11:10) skin irritation sensitivity haloperidol [From HALDOL] Adverse Reaction (Intermediate, Verified 09/16/23 11:10) UNKNOWN Tegaderm CHG dressing: Allergy (Unknown, Uncoded 09/16/23 11:10) skin irritation Haldol Adverse Reaction (Unknown, Uncoded 09/16/23 11:10) paradoxical effect Do you need a note to return to daycare/school/sports/work: No HPI HPI Comments History of Present Illness Details 28 y/o female patient who presents to [facility] in clinic with c/o Rash on her Neck x 2 days and rash on under her breasts skin x 2 weeks. Reports that rash being itchy and burning. [facility] Medical History (Updated 09/07/23 @ 10:43 by Lexie Salter [facility]) Transaminitis KARLA (obstructive sleep apnea) Somnolence, daytime Morbid obesity Pain of left lower extremity Swelling of left lower extremity Hypertension, essential Mood disorder Developmental delay, mild Vitamin D deficiency Anemia Iron deficiency PTSD (post-traumatic stress disorder) Anxiety Autistic disorder Chronic constipation Acute constipation Colitis Crohn's disease Prader-Willi syndrome Pica in adults Surgical History History of abdominal surgery History of throat surgery Family History Father No problems noted. Mother No problems noted. Social History Household Members: Other Housing: Other Do you presently have visiting nurse or other home services: Yes Alcohol intake: never Comment: No complaints of headache Patient Tobacco Use Status: Never used Tobacco e-Cigarette/Vaping Use: Never Used Second Hand Smoke Exposure: No service: No Current occupational status: disabled Cognitive needs: No Hearing needs: No Vision needs: Yes Review of Systems Const All systems reviewed & are unremarkable except as noted in HPI and below Physical Exam Vital Signs: Last Vital Signs Temp 97.4 F 09/16/23 10:57 Pulse 53 09/16/23 10:57 BP 122/76 09/16/23 10:57 Pulse Ox 95 09/16/23 10:57 Oxygen Delivery Method Room Air 09/16/23 10:57 BMI result Body Mass Index 41.6 Const General: comfortable and no acute distress Nutritional Appearance: obese Orientation/consciousness: patient oriented x3 Skin Rashes: rashes noted (Red patches of dry and scaly rash under neck and breasts skin) Neuro General: patient oriented x3, gait normal and moves all extremities Psych Speech and movement: Normal speech and movement present Assessment & Plan Assessment & Plan (1) Intertriginous candidiasis: Code(s): B37.2 - Candidiasis of skin and nail Plan: - Wash the affected area with a gentle, unscented, dye-free soap.?Rinse thoroughly and pat dry, making sure the skin is completely dry before getting dressed.?Try using an absorbent powder and May use hair blowdryer on the cool setting. Medications: New fluconazole TAKE 1 TABLET ONCE A WEEK FOR THE NEXT 4 WEEKS. 150 mg PO QWEEK 4 tabs 0RF RASH B37.2 - Candidiasis of skin and nail ketoconazole 2% APPLY A THIN LAYER TO THE AFFECTED SKIN TWICE A DAY FOR 14 DAYS. 1 appl topical BID 30 grams 0RF B37.2 - Candidiasis of skin and nail diphenhydramine HCl (Benadryl) 25 mg PO TID PRN 20 caps 0RF allergy symptoms B37.2 - Candidiasis of skin and nail Coding Level of Care Code Est Pt Level 3 (65683) Diagnoses Intertriginous candidiasis B37.2 Time Spent (min) 15
--- OUTSIDE RECORDS SUMMARY | 2023-09-23 06:11 | XMS_ITS | Continuity of Care Document ---
Author Organization [facility] ter Address [address] [place] [id number]- Care Team Providers Care [employer] Prescription Clerk Name Role Phone Rojas KAPLAN, Asma Primary Care Physician Encounter [facility] Date(s): 10/11/22 - 10/11/[address] [address]- Discharge Disposition: A-D/C Home Attending Physician: Juli Fonseca MD Admitting Physician: Juli Fonseca MD Referring Physician: Not on Staff, Referring MD Allergies, Adverse Reactions, Alerts Substance Reaction Severity Status Haldol Active LMX 4 with Tegaderm Active Immunizations Given and Recorded Vaccine Date Status Refusal Reason tetanus-diphtheria toxoids (Td) 10/12/18 Recorded Influenza Virus Vaccine (oldterm) 01/13/03 Recorde d Measles/Mumps/Rubella Virus Vaccine 10/05/00 Recor ded Hepatitis B Vaccine (old term) 95 Recorded Medications acetaminophen 325 mg oral tablet 650 mg, 2, tablet, By Mouth, Daily, PRN, Maintenance, pain/fever, 01/08/22 7:51:00 EDT, ; Start Date: 01/08/22 Status: Ordered atenolol 25 mg oral tablet 25 mg, 1, tablet, By Mouth, Daily, # 30 tablet, Refills 0, Tot. Refills 0, Maintenance, 10/21/21 15:28:00 EDT, Route to Pharmacy Electronically, [facility] [employer], Partial fill upon patient request if the prescription is for a schedul... Start Date: 10/21/21 Status: Ordered Ativan 1 mg oral tablet 1 tablet = 1 mg, By Mouth, 2 times a day, PRN as needed for anxiety, 0 Refills, Maintenance, 09/09/22 19:24:00 EDT, Tablet, Partial fill upon patient request if the prescription is for a schedule II opioid drug. Start Date: 09/09/22 Status: Ordered Benadryl 25 mg oral capsule 1 capsule = 25 mg, By Mouth, Daily, PRN as needed for itching, Maintenance, 07/05/22 14:13:00 EDT, Partial fill upon patient request if the prescription is for a schedule II opioid drug. Start Date: 07/05/22 Status: Ordered calcium (as citrate)-vitamin D 200 mg-250 intl units oral tablet 1 tablet, By Mouth, Daily in AM, # 30 tablet, 0 Refills, Maintenance, 10/21/21 15:24:00 EDT, Tablet, [facility]-[id number], Partial fill upon patient request if the prescription is for aschedule II opioid drug., 1 tablet By Mouth Daily i... Start Date: 10/21/21 Status: Ordered cholecalciferol 2000 intl units oral capsule 1 capsule = 50 mcg, By Mouth, Daily, # 30 capsule, 0 Refills, Maintenance, 10/21/21 15:27:00 EDT, Capsule, [facility]-[address], Partial fill upon patient request if the prescription isfor a schedule II opioid drug., 152.4, cm, 10/21/21... Start Date: 10/21/21 Stop Date: 11/20/21 Status: Ordered famotidine 40 mg oral tablet 1 tablet = 40 mg, By Mouth, Daily, 0 Refills, Maintenance, 12/29/21 18:57:00 EDT, Tablet, ; Start Date: 12/29/21 Status: Ordered FLUoxetine 20 mg oral capsule 20 mg, By Mouth, Daily in AM, # 30 capsule, Refills 0, Tot. Refills 0, Maintenance, 10/21/21 15:30:00 EDT, Route to Pharmacy Electronically, [id number], Partial fill upon patient request if the prescription is for a schedule II... Start Date: 10/21/21 Stop Date: 11/20/21 Status: Ordered fluticasone 50 mcg/inh nasal spray 1 sprays = 50 mcg, Nares, Both, Daily at bedtime, # 16 Gm, 0 Refills, Maintenance, 10/21/21 15:30:00 EDT, Nasal Fisher, [facility] [address], Partial fill upon patient request if the prescription is for a schedule II opioid drug., 1 spray... Start Date: 10/21/21 Status: Ordered folic acid 1 mg oral tablet 1 mg, 1, tablet, By Mouth, Daily, # 30 tablet, Refills 0, Tot. Refills 0, Maintenance, 10/21/21 15:30:00 EDT, Route to Pharmacy Electronically, [facility]-[id number], Partial fill upon patient request if the prescription is for a schedule... Start Date: 10/21/21 Status: Ordered hydrOXYzine hydrochloride 25 mg oral tablet 1 tablet = 25 mg, By Mouth, Every 12 hours, PRN Agitation/ sleep, 0 Refills, Maintenance, 12/29/21 18:56:00 EDT, ; Start Date: 12/29/21 Status: Ordered melatonin 10 mg oral tablet 1 tablet = 10 mg, By Mouth, Daily at bedtime, PRN as needed for insomnia, # 200 tablet, 0 Refills, Maintenance, 07/05/22 14:20:00 EDT, Tablet, Partial fill upon patient request if the prescription isfor a schedule II opioid drug. Start Date: 07/05/22 Status: Ordered mercaptopurine 50 mg oral tablet 1 tablet = 50 mg, By Mouth, Daily, # 30 tablet, 0 Refills, Maintenance, 10/21/21 15:30:00 EDT, Tablet, [facility], Partial fill upon patient request if the prescription is fora schedule II opioid drug., 152.4, cm, 10/21/21 11:... Start Date: 10/21/21 Status: Ordered MiraLax oral powder for reconstitution = 17 Gm, By Mouth, Daily, PRN as needed, dissolve in water before taking, Maintenance, 11/05/21 19:18:00 EDT, REC Powder, ; Start Date: 11/05/21 Status: Ordered naltrexone 50 mg oral tablet 1 tablet = 50 mg, By Mouth, Daily, 0 Refills, Maintenance, 12/29/21 18:57:00 EDT, Tablet, ; Start Date: 12/29/21 Status: Ordered [place]-3 1000 mg oral capsule 1 capsule = 1,000 mg, By Mouth, 3 times a day, # 90 capsule, 0 Refills, Maintenance, 10/21/21 15:27:00 EDT, Capsule, [facility]-[id number], Partial fill upon patient request if the prescription is for a schedule II opioid drug., 152.4, cm... Start Date: 10/21/21 Stop Date: 11/20/21 Status: Ordered Saline Nasal Mist 2 spays, Nares, Both, Every 12 hours, PRN as needed for dry nasal passages, Maintenance, 01/08/22 7:53:00 EDT, ; Start Date: 01/08/22 Status: Ordered silver sulfADIAZINE 1% topical cream 1/4 ribbon, Topically, Daily at bedtime, FOR VAGINAL ITCHING Start Date: 12/29/21 Status: Ordered Stelara PFS 90 mg/mL subcutaneous solution 1 mL = 90 mg, Subcutaneous Injection, Every 8 Weeks, on Fridays, 0 Refills, Maintenance, 10/24/19 23:19:00 EDT, Solution Start Date: 10/24/19 Status: Ordered ZyPREXA 5 mg oral tablet 5 mg, 1, tablet, By Mouth, Daily at bedtime, Refills 0, Maintenance, 09/09/22 19:24:00 EDT, Partialfill upon patient request if the prescription is for a schedule II opioid drug. Start Date: 09/09/22 Status: Ordered Problem List Condition Confirmation Course Effective Dates Status Health St atus Informant Anxiety Confirmed Active Autism spectrum Confirmed Active Constipation Confirmed Active Crohn disease Confirmed Active Foreign body in hypopharynx Confirmed Active Pica Confirmed Active Prader-Willi syndrome Confirmed Active Prader-Willi syndrome Confirmed Active Severe obesity Confirmed Active Results Radiology Reports * Exam Date Time Procedure Performing Provider Status 10/11/22 7:17 AM Neck Soft Tissue Rony Wesley [facility] (Verified) Notes: (Neck Soft Tissue) Reason For Exam: Foreign Body RESULT: Neck Soft Tissue Neck Soft Tissue Hx of Present Illness: pica; Reason: Foreign Body; Clinical Question(s): Foreign Body Location. Permedical record, patient swallowed toilet paper. COMPARISON: Neck radiograph from 09/09/2022, 08/30/2022, 08/13/2022 FINDINGS: Patent nasopharynx. No abnormal adenoidal enlargement. Normal retropharyngeal and retrotracheal soft tissues. Normal airway. Normal bones. No radiodense foreign body. IMPRESSION: No radiodense foreign body. Per medical record, patient swallowed toilet paper which will not likely project on radiography. CT could be considered for further assessment if clinically indicated, although density of paper may also be difficult to appreciate. WSN: [id number] Ordering Physician: Jennifer Leblanc Dictated By: Chevy Schneider MD Dictated Date/Time: 10/11/22 7:42 am Reviewed By: Chevy Schneider MD Signed By: Chevy Schneider MD Signed Date/Time: 10/11/22 7:42 am Transcribed By: ROS Transcribed Date/Time: 10/11/22 7:38 am Vital Signs Most recent to oldest [Reference Range]: 1 2 3 Oxygen Saturation [94-100 %] 96 % (10/11/22 9:00 AM) 96 % (10/11/22 8:55 AM) 95 % (10/11/22 8:40 AM) Pulse Rate [55-90 bpm] 76 bpm (10/11/22 5:49 AM) Blood Pressure [90-138/55-84 mm Hg] 122/68mm Hg (10/11/22 9:00 AM) 118/74mm Hg (10/11/22 8:55 AM) 109/64mm Hg (10/11/22 8:40 AM) Respiratory Rate [16-30 br/min] 18 br/min (10/11/22 9:00 AM) 18 br/min (10/11/22 8:55 AM) 14 br/min *L* (10/11/22 8:40 AM) Temperature [96.8-100.4 DegF] 98.3 DegF (10/11/22 8:25 AM) 97.8 DegF (10/11/22 5:49 AM) Mode of Delivery (Oxygen) Room air (10/11/22 9:00 AM) Room air (10/11/22 8:25 AM) Room air (10/11/22 5:49 AM) Blood pressure sites Arm, right (10/11/22 8:25 AM) Temperature Route Temporal (10/11/22 8:25 AM) Oral (10/11/22 5:49 AM) Social History Social History Type Response Smoking Status Never (less than 100 in lifetime) entered on: 09/17/20 Sex Female History and physical note * Speedy KAPLAN, Amandeep Gotti: PERFORM, SIGN, VERIFY, MODIFY, SIGN Amandeep Ruff MD: SIGN Marian KAPLAN, Juli Sanchez: SIGN, MODIFY Marian KAPLAN, Juli Sanchez: MODIFY Event Display: History and Physical Hospital Authored Date: [id number] Patient: ADILENE MATHEWS Age: 27 years Sex: Female : 1995 Associated Diagnoses: None Author: Amandeep Ruff MD Admission Information Consultation requested by: ED provider Consulted physician: Dr. Fonseca Reason for consultation: airway obstruction (swallowed toilet paper) History of Present Illness 27 YOF with Douglas jurado who swallowed Toilet paper with concern for impending airway compromise. Past Medical History Problem list All Problems Anxiety / SNOMED CT 41041084 / Confirmed Autism spectrum / SNOMED CT 1861014973 / Confirmed Constipation / SNOMED CT 38944201 / Confirmed Crohn disease / SNOMED CT 99505400 / Confirmed Dermatitis / SNOMED CT 1865565676 / Provisional Foreign body in hypopharynx / SNOMED CT 4070129 / Confirmed Foreign body ingestion / SNOMED CT 22690432 / Provisional Pica / SNOMED CT 10373269 / Confirmed Prader-Willi syndrome / SNOMED CT 674737017 / Confirmed Prader-Willi syndrome / SNOMED CT 610785006 / Confirmed Severe obesity / SNOMED CT 2213027762 / Confirmed Resolved: Obese class II / SNOMED CT 826031148419377 select into nl: where @patientid:1 = @patientid:1 detail ProblemRequest->problem[1].onset_dt_tm = cnvtdatetime(curdate,curtime3) ekssub- >mod = 'Problem added by Discern Expert' go * Problem added by Discern Expert Allergies Allergic Reactions (Selected) Severity Not Documented Haldol- No reactions were documented. LMX 4 with Tegaderm- No reactions were documented. Current medications (Selected) Prescriptions Prescribed FLUoxetine 20 mg oral capsule: 20 mg, By Mouth, Daily in AM, # 30 capsule, Refills 0, Tot. Refills 0, Maintenance, 10/21/21 15:30:00 EDT, Route to Pharmacy Electronically, [facility], Partial fill upon patient request if the prescription is for a schedule II... [place]-3 1000 mg oral capsule: 1 capsule = 1,000 mg, By Mouth, 3 times a day, # 90 capsule, 0 Refills, Maintenance, 10/21/21 15:27:00 EDT, Capsule, [facility], Partial fill upon patient request if the prescription is for a schedule II opioid drug., 152.4, cm... atenolol 25 mg oral tablet: 25 mg, 1, tablet, By Mouth, Daily, # 30 tablet, Refills 0, Tot. Refills0, Maintenance, 10/21/21 15:28:00 EDT, Route to Pharmacy Electronically, [facility], Partial fill upon patient request if the prescription is for a schedul... calcium (as citrate)-vitamin D 200 mg-250 intl units oral tablet: 1 tablet, By Mouth, Daily in AM, # 30 tablet, 0 Refills, Maintenance, 10/21/21 15:24:00 EDT, Tablet, [facility], Partial fill upon patient request if the prescription is for a schedule II opioid drug., 1 tablet By Mouth Daily i... cholecalciferol 2000 intl units oral capsule: 1 capsule = 50 mcg, By Mouth, Daily, # 30 capsule, 0 Refills, Maintenance, 10/21/21 15:27:00 EDT, Capsule, [facility]-[address], Partial fill upon patient request if the prescription is for a schedule II opioid drug., 152.4, cm, 10/21/21... fluticasone 50 mcg/inh nasal spray: 1 sprays = 50 mcg, Nares, Both, Daily at bedtime, # 16 Gm, 0 Refills, Maintenance, 10/21/21 15:30:00 EDT, Nasal Fisher, [facility]-[address], Partial fill upon patient request if the prescription is for a schedule II opioid drug., 1 spray... folic acid 1 mg oral tablet: 1 mg, 1, tablet, By Mouth, Daily, # 30 tablet, Refills 0, Tot. Refills0, Maintenance, 10/21/21 15:30:00 EDT, Route to Pharmacy Electronically, [facility], Partial fill upon patient request if the prescription is for a schedule... mercaptopurine 50 mg oral tablet: 1 tablet = 50 mg, By Mouth, Daily, # 30 tablet, 0 Refills, Maintenance, 10/21/21 15:30:00 EDT, Tablet, [facility]-[address], Partial fill upon patient request if the prescription is for a schedule II opioid drug., 152.4, cm, 10/21/21 11:... Documented Medications Documented Ativan 1 mg oral tablet: 1 tablet = 1 mg, By Mouth, 2 times a day, PRN as needed for anxiety, 0 Refills, Maintenance, 09/09/22 19:24:00 EDT, Tablet, Partial fill upon patient request if the prescription is for a schedule II opioid drug. Benadryl 25 mg oral capsule: 1 capsule = 25 mg, By Mouth, Daily, PRN as needed for itching, Maintenance, 07/05/22 14:13:00 EDT, Partial fill upon patient request if the prescription is for a scheduleII opioid drug. MiraLax oral powder for reconstitution: = 17 Gm, By Mouth, Daily, PRN as needed, dissolve in water before taking, Maintenance, 11/05/21 19:18:00 EDT, REC Powder, ; Saline Nasal Mist: 2 spays, Nares, Both, Every 12 hours, PRN as needed for dry nasal passages, Maintenance, 01/08/22 7:53:00 EDT, ; Stelara PFS 90 mg/mL subcutaneous solution: 1 mL = 90 mg, Subcutaneous Injection, Every 8 Weeks, onFridays, 0 Refills, Maintenance, 10/24/19 23:19:00 EDT, Solution ZyPREXA 5 mg oral tablet: 5 mg, 1, tablet, By Mouth, Daily at bedtime, Refills 0, Maintenance, 09/09/22 19:24:00 EDT, Partial fill upon patient request if the prescription is for a schedule II opioiddrug. acetaminophen 325 mg oral tablet: 650 mg, 2, tablet, By Mouth, Daily, PRN, Maintenance, pain/fever,01/08/22 7:51:00 EDT, ; famotidine 40 mg oral tablet: 1 tablet = 40 mg, By Mouth, Daily, 0 Refills, Maintenance, 12/29/21 18:57:00 EDT, Tablet, ; hydrOXYzine hydrochloride 25 mg oral tablet: 1 tablet = 25 mg, By Mouth, Every 12 hours, PRN Agitation/ sleep, 0 Refills, Maintenance, 12/29/21 18:56:00 EDT, ; melatonin 10 mg oral tablet: 1 tablet = 10 mg, By Mouth, Daily at bedtime, PRN as needed for insomnia, # 200 tablet, 0 Refills, Maintenance, 07/05/22 14:20:00 EDT, Tablet, Partial fill upon patient request if the prescription is for a schedule II opioid drug. naltrexone 50 mg oral tablet: 1 tablet = 50 mg, By Mouth, Daily, 0 Refills, Maintenance, 12/29/21 18:57:00 EDT, Tablet, ; silver sulfADIAZINE 1% topical cream: 04/01 ribbon, Topically, Daily at bedtime, FOR VAGINAL ITCHING Surgical History Procedure/Surgical Profile Flexible bronchoscopy ([id number]) on 07/05/2022 at 27 Years. Bronchoscopy with removal of foreign body ([id number]) on 07/05/2022 at 27 Years. Esophagogastroduodenoscopy ([id number]) on 02/23/2022 at 26 Years. EGD - Esophagogastroduodenoscopy ([id number]) on 10/16/2021 at 26 Years. Social History Social History Alcohol Details: Use: Never. Substance Abuse Details: Use: Never. Tobacco Details: Use: Never (less than 100 in lifetime). . Family History Family History Profile No family history items have been selected or recorded. Review of Systems Negative: Constitutional, Eye, Skin, Head/Neck, ENMT, Respiratory, Cardio, Gastrointestinal, Breast, Gynecologic, Genitourinary, Endocrine, Muscoloskeletal, Immunologic, Hematologic, Lymphatic, Neurologic, Psych reviewed and negative except as noted in HPI. Physical Examination Vital Signs Vitals : VITALS 10/11/2022 5:49 EDT Temperature 97.8 DegF Temperature Route Oral Pulse Rate 76 bpm Respiratory Rate 16 br/min Systolic Blood Pressure 137 mm Hg Diastolic Blood Pressure 66 mm Hg Mean Arterial Pressure 90 mm Hg Pulse Pressure 71 mm Hg Mode of Delivery (Oxygen) Room air . ??Physical Exam: Gen: No Acute Distress, Awake and Conversant (muffled voice) Neuro: Alert and Oriented x 3 Head: Normocephalic, Atraumatic Eyes: Non-icteric, No conjunctival injection Cardiac: Regular rate and rhythm Resp: Even and unlabored breathing, no wheezing Abdomen: soft, non-distended?no rebound tenderness or guarding, non tender to palpation Ext: No lower Extremity Edema Bilaterally, Demonstrates full active range of motion Skin: No rashes, warm and well perfused Results Review 7 day results Labs & Documents Laboratory : (Date Range: 10/04/2022 0:00 EDT - 10/11/2022 7:28 EDT) Impression and Plan 27 YOF with Douglas jurado who swallowed toilet paper with concern for impending airway obstruction, patient to go to or emergently. This patient was discussed with Dr. Fonseca * Marian KAPLAN, Juli Sanchez: PERFORM Event Display: History and Physical Hospital Authored Date: [id number] Attending Attestation: The patient was seen, examined, and discussed with the team on the date of service documented. The clinical course, labs, and radiological studies were reviewed by me and findings on exam confirmed. I agree with the findings and assessment and plan as delineated above. The patient was emergently taken to the operating room for airway evaluation and clearance. She wasgiven versed which she tolerated well and direct laryngoscopy was performed with glide-scope and bronchoscopy. Foreign body (macerated toilet paper) was visualized within the oropharynx and was able to be cleared using Minda foreceps. There was no further evidence of distal occlusion which would warrant full bronchoscopy or EGD. The patient's airway and oxygenation remained stable throughout theprocedure. She was transferred to PACU in stable condition. --- Juli Fonseca MD Division of Trauma, Acute Care Surgery, and Surgical Critical Care Note * Sorin Matos RN: PERFORM Event Display: Discharge/Transfer Note Hospital Authored Date: [id number] Nursing Discharge Note Entered On: 10/11/2022 8:18 EDT Performed On: 10/11/2022 8:18 EDT by Sorin Matos RN Nursing Discharge Note 2 Discharge Time : 10/11/2022 10:05 EDT DC Instructions Provided & Signed by Pt : Unable Patient Understands D/C Instructions : Unable Verbalized Understanding of D/C Plan By : Caregiver Patient Instructions Discharge Signed : Yes Discharge Comments : [facility] AT BEDSIDE FOR ENTIRE PACU STAY; PT REMAINED SAFE; INSTRUCTIONS REVIEWED WITH JENNIE AND HE VERBALIZES UNDERSTANDING; MADE AWARE THAT IV SITE TO LEFT FOOT WITH 2X2 AND GAUZE WRAP CAN BE REMOVED ON ARRIVAL TO HOME; S+S INFECTION REVIEW Did Pt have Specialty Bed or Wound Vac : No Sorin Matos RN - 10/11/2022 10:10 EDT Discharge Level of Care at Discharge : Home/Senior Living/Foster Care Patient Left Unit Via : Wheelchair Patient Accompanied Off Unit with : Responsible adult Sorin Matos RN - 10/11/2022 8:18 EDT * Sorin Matos RN: PERFORM, MODIFY, MODIFY, MODIFY, MODIFY Event Display: Patient Education/Instruction Authored Date: [id number] Inpatient Adult Discharge Instructions [address] [address] Name: ADILENE MATHEWS : 1995 Visit: 10/11/2022 05:41:00 Current Date: 10/11/2022 08:19 Account: [id number] Inpatient Adult Discharge Instructions We would like to thank you for allowing us to assist you with your healthcare needs. The following includes patient education materials and information regarding your injury/illness. Our entire staffstrives to provide an excellent experience for our patients and their families. PLEASE ENSURE YOU FOLLOW-UP PER THE INSTRUCTIONS BELOW! ?? YOUR OPINION IS IMPORTANT TO US! Please complete the survey you may receive by mail or email. Your feedback will be used to make improvements to the healthcare experiences of our patients and their families. Surveys are administered by [employer] ?? If further treatment with your primary care physician or another doctor is recommended, it is important for you to keep the appointment. Call your primary care physician or return to the Emergency Department immediately if your condition worsens, fails to improve, or new symptoms develop. If you need to find a doctor, you can call [facility] for a referral at [phone] or toll free at [phone]) or log in to [email or web address].. ?? You can view and manage your care through the patient portal or by using a health care lisa of your choosing. [employer] is a website that allows you to securely view your medical information including your hospital discharge summary, office visit summaries, medications and follow-up visits. You can also request appointments, renew medications, and request access to your medical information using a health care lisa of your choosing, or just ask a question. You can enroll at [email or web address] or register during your next office visit. You have been discharged from [facility], Patient Care Unit: [facility]. If you have any questions regarding these instructions after you leave, please call us and we will be happy to assist you. [facility] Your Care Team Attending Physician Not on Staff, Attending MD Reason for Admission Pt arrives via EMS from her nursing home for attempting to swallow toilet paper. Pt has a h/o of picaand autism. Tests Performed Below is a partial list of the tests performed during your hospitalization. You may have had other tests and procedures not included in this list. Please discuss all test results with your provider. XR Neck Soft Tissue Primary Care Provider Rojas KAPLAN, [facility] Advance Directive Health Care Proxy on File Yes - Health Care Proxy Discharge Vitals Temperature: 97.8 DegF Pulse Rate: 76 bpm Respiratory Rate: 16 br/min Systolic Blood Pressure: 137 mm Hg Diastolic Blood Pressure: 66 mm Hg Studies Pending All tests and labs ordered during this hospital stay have been completed unless listed below. Please discuss all pending results with your provider listed above in these instructions. ?? COVID-19 (Novel Coronavirus), Rapid PCR What to do next Instructions From Your Doctor Discharge Orders Discharge Medications ADILENE MATHEWS :1995 Visit Date:10/11/2022 Medications: Please continue your medications until treatment is completed or stopped by your provider. Medications not listed below should be discontinued. Discuss any questions related to medications with your provider. What How Much When Instructions Next Dose Unchanged Acetaminophen (acetaminophen 325 mg oral tablet) 2 tab(s) Oral Daily as needed for pain/fever NEEDED ANYTIME Unchanged Atenolol (atenolol 25 mg oral tablet) 1 tab(s) Oral Daily 10/11 Unchanged Calcium And Vitamin D Combination (calcium (as citrate)-vitamin D 200 mg-250 intl units oral tablet) 1 tab(s) Oral Daily in the morning 10/11 Unchanged Cholecalciferol (cholecalciferol 2000 intl units oral capsule) 1 capsule Oral Daily Duration: 30 Days 10/11 Unchanged DiphenhydrAMINE (Benadryl 25 mg oral capsule) 1 capsule Oral Daily as needed for as needed for itching NEEDED Unchanged Famotidine (famotidine 40 mg oral tablet) 1 tab(s) Oral Daily 10/11 Unchanged Fluoxetine (FLUoxetine 20 mg oral capsule) 20 Milligram Oral Daily in the morning Duration: 30 Days 10/11 Unchanged Fluticasone Nasal (fluticasone 50 mcg/ inh nasal spray) 1 spray(s) Nares, Both Daily at Bedtime 10/11 9PM Unchanged Folic Acid (folic acid 1 mg oral tablet) 1 tab(s) Oral Daily 10/11 Unchanged HydrOXYzine (hydrOXYzine hydrochloride 25 mg oral tablet) 1 tab(s) Oral Every 12 hours as needed for Agitation/ sleep NEEDED Unchanged Lorazepam (Ativan 1 mg oral tablet) 1 tab(s) Oral Twice a day as needed for as needed for anxiety NEEDED Unchanged Melatonin (melatonin 10 mg oral tablet) 1 tab(s) Oral Daily at Bedtime as needed for as needed for insomnia NEEDED Unchanged Mercaptopurine (mercaptopurine 50 mg oral tablet) 1 tab(s) Oral Daily 10/11 Unchanged Naltrexone (naltrexone 50 mg oral tablet) 1 tab(s) Oral Daily 10/11 Unchanged Olanzapine (ZyPREXA 5 mg oral tablet) 1 tab(s) Oral Daily at Bedtime 10/11 9PM Unchanged [place]-3 Polyunsaturated Fatty Acids ([place]-3 1000 mg oral capsule) 1 capsule Oral 3 times a day Duration: 30 Days 10/11 1PM Unchanged Polyethylene Glycol 3350 (MiraLax oral powder for reconstitution) 17 gram Oral Daily as needed for as needed dissolve in water before taking ?? NEEDED Unchanged Silver SulfADIAZINE Topical (silver sulfADIAZINE 1% topical cream) 1/4 ribbon Topically Daily at Bedtime FOR VAGINAL ITCHING ?? 10/11 9PM Unchanged Sodium Chloride Nasal (Saline Nasal Mist) 2 spays Nares, Both Every 12 hours as needed for as needed for dry nasal passages NEEDED Unchanged Ustekinumab (Stelara PFS 90 mg/ mL subcutaneous solution) 1 Milliliter Subcutaneous Injection Every 8 Weeks on Fridays ?? SCHEDULED MAY RESUME ALL MEDICATIONS SCHEDULED Test Results Below is a partial list of the most recent Laboratory test results done prior to this discharge. You may have had other tests and procedures not included in this list. Please discuss all test resultswith your provider. Allergies (NKA means No Known Allergies) Haldol LMX 4 with Tegaderm Problems Active Problems??(11) Anxiety?? Autism spectrum?? Constipation?? Crohn disease?? Dermatitis?? Foreign body in hypopharynx?? Foreign body ingestion?? Pica?? Prader-Willi syndrome?? Prader-Willi syndrome?? Severe obesity?? Education Materials Below is the list of Educational Leaflet Providered with your Discharge Instructions. Valuables and Belongings I fully understand and agree that [facility] accepts no responsibility for all my personal property including clothing, toilet articles, radios, jewelry, dentures, hearing aids, rings, money, or any other property that is in my possession or is brought to me after admission. I understand certain valuables may be placed in a hospital safe for a short period of time. I understand that the hospital is not liable for loss or damage due to accident, fire, or other natural occurrence while said property is in the safe. I accept full responsibility for any personal property that I keep with me, and will not hold the hospital responsible in case of loss or disappearance. I acknowledge that i have been encouraged to send valuables and belongings home. ?? No Valuables/Belongings: No valuables/belongings present Date for Pt to Sign Valuables/Belongings: 10/11/22 07:33:00 ?? Other Discharge Information ? Case Management Discharge Plan?? Discharge Plan?? Discharge Level of Care at Discharge: Home/Senior Living/Foster Care ?? Pulmonary Rehab Status?? Pulmonary Rehab Discharge Status?? Respiratory Rate: 16 br/min ? Common Emergency Awareness Tips IS IT A STROKE? Act FAST and Check for these signs: FACE Does the face look uneven? ARM Does one arm drift down? SPEECH Does their speech sound strange? TIME Call at any sign of stroke ?? Heart Attack Signs Chest discomfort: Most heart attacks involve discomfort in the center of the chest and lasts more than a few minutes, or goes away and comes back. It can feel like uncomfortable pressure, squeezing, fullness or pain. Discomfort in upper body: Symptoms can include pain or discomfort in one or both arms, back, neck, jaw or stomach. Shortness of breath: With or without discomfort. Other signs: Breaking out in a cold sweat, nausea, or lightheaded. Remember, MINUTES DO MATTER. If you experience any of these heart attack warning signs, call to get immediate medical attention! ?? Smoking can increase your chances of developing chronic health problems and can cause harmful effects to other family members in your house. If you smoke, you are strongly encouraged to quit. Please call [facility] at [phone] or [phone] ([phone]) or log in to [email or web address] for referrals to smoking cessation programs. ?? 873 Suicide & Crisis Lifeline is available 19/10 if you or someone you know needs to find a reason to keep living. By calling 045 you'll be connected to a skilled, trained counselor at a crisis center in your area. INPATIENT DISCHARGE INSTRUCTIONS SIGNATURE PAGE ADILENE MATHEWS Location:[facility] Registration Date and Time:10/11/2022 05:41 EDT Primary Care Physician: Rojas KAPLAN, [facility], Attending Physician: Not on Staff, Attending MD ADILENE JORDAN, have received the above patient education materials/instructions and have verbalized understanding. If ambulance or transport services are being used I further acknowledge being given a choice of service. ?? If you need to contact me, please call me at this number: . Patient/Elementary Substitute Teacher Name: Patient/Elementary Substitute Teacher Signature: Relationship to Patient: Witness Name/Signature: Date: * Sorin Matos RN: PERFORM, SIGN, VERIFY Event Display: Patient Education Handout Authored Date: [id number] * Sorin Matos RN: PERFORM Event Display: Patient Education Leaflets Authored Date: [id number] Surgery Medical Daystay Surgical Overnight Discharge Instructions ?? 295 Medical Daystay/Surgical Overnight Discharge Instructions ? Since your coordination and judgment may be altered by medication and/or anesthesia, a responsible adult must drive you home from the hospital. ? If you have received medication for pain or sedation while under our care, you should not drive, operate machinery, drink alcohol, or sign any legal documents for 24 hours.?? You should have someone with you at home tonight. ? Remain at home the day of discharge.?? You may be up and about unless otherwise instructed by your physician. ? You may resume your daily prescription medication schedule.?? Any depressant medication should be avoided for 24 hours unless otherwise instructed by your surgeon or anesthesiologist. ? Call your physician for a follow-up appointment.? If you experience unusual or severe pain not relied by your pain medication, excessive bleedingor drainage, persistent nausea and vomiting, excessive swelling or redness, foul odor from incisionsite or fever over 100.6F, you need to call your physician. ? A follow-up phone call by a nurse will be made the day after your procedure.?? If you have stayed with us over night, you will not be receiving a follow-up phone call. ? Nausea and vomiting are a common side effect of prescription pain medication.?? We recommend that pills are not taken on an empty stomach.?? While taking any prescription pain medication you should not drive or drink alcohol. ? Patient Care team information Care Team Personnel Name: John Frederick RN Position: [facility] RN Member Role: Primary Care Nurse Name: Minoo Rascon RN Position: [facility] RN Member Role: Primary Care Nurse Name: Anthony Viveros RN Position: S RN Member Role: Primary Care Nurse Name: Galen Xie MD Position: [facility] Physician - Primary Care Member Role: PCP Address: Address: [address] [place] [address]- Name: Charla Galindo RN Position: S RN Member Role: Primary Care Nurse Name: Julia Sumner Position: S RN Member Role: Primary Care Nurse Name: Bessie Gomes RN Position: S RN Member Role: Primary Care Nurse Name: Ashlie Goodman RN Position: [facility] RN Member Role: Primary Care Nurse Name: Danielle Griffith RN Position: [facility] RN Member Role: Primary Care Nurse Name: Aneta Conte RN Position: [facility] RN Member Role: Primary Care Nurse Name: Carmelina Dunn LPN Position: [facility] RN Member Role: Primary Care Nurse Name: Janay Judd RN Position: [facility] RN Member Role: Primary Care Nurse Name: Brit Gracia RN Position: [facility] RN Member Role: Primary Care Nurse Name: Karma Miller RN Position: [facility] RN Member Role: Primary Care Nurse Name: Latricia ROSE Attending Position: [facility] ED Medicine MD Name: Andra Sosa Position: [facility] ED [facility] Care Team Related Persons Name: ELIZABETH REES Address: [address] [place] [address] Name: MELO KUMAR Address: home [address] [place] [address] Name: ROLAND WILLIAM Address: [address] [place] [address]
--- OUTSIDE RECORDS SUMMARY | 2023-09-23 06:11 | XMS_ITS | Continuity of Care Document ---
Author Organization [facility] ter Address [address] [place] [id number]- Care Team Providers Care Greenhouse Florist Name Role Phone Rojas KAPLAN, Asma Primary Care Physician Encounter [facility] Date(s): 06/13/22 - 06/13/[address] [address]- Encounter Diagnosis Foreign body in digestive tract(Final) - 06/13/22 Discharge Disposition: A-D/C Home Attending Physician: Leyla Mcduffie MD Admitting Physician: Leyla Mcduffie MD Referring Physician: Not on Staff, Referring [...] tablet 650 mg, 2, tablet, By Mouth, Every 4 hours, PRN, Maintenance, pain/fever, 01/08/22 7:51:00 EDT, ; Start Date: 01/08/22 Status: Ordered ARIPiprazole 5 mg oral tablet 5 mg, 1, tablet, By Mouth, Daily, # 30 tablet, Refills 0, Tot. Refills 0, Maintenance, 10/21/21 15:28:00 EDT, Route to Pharmacy Electronically, [id number], Partial fill upon patient request if the prescription is for a schedule... Start Date: 10/21/21 Status: Ordered atenolol 25 mg oral tablet 25 mg, 1, tablet, By Mouth, Daily, # 30 tablet, Refills 0, Tot. Refills 0, Maintenance, 10/21/21 15:28:00 EDT, Route to Pharmacy Electronically, [facility], Partial fill upon patient request if the prescription is for a schedul... Start Date: 10/21/21 Status: Ordered calcium (as citrate)-vitamin D 200 mg-250 intl units oral tablet 1 tablet, By Mouth, Daily in AM, # 30 tablet, 0 Refills, Maintenance, 10/21/21 15:24:00 EDT, Tablet, [facility], Partial fill upon patient request if the prescription is for aschedule II opioid drug., 1 tablet By Mouth Daily i... Start Date: 10/21/21 Status: Ordered cholecalciferol 2000 intl units oral capsule 1 capsule = 50 mcg, By Mouth, Daily, # 30 capsule, 0 Refills, Maintenance, 10/21/21 15:27:00 EDT, Capsule, [facility]99[facility], Partial fill upon patient request if the [...] 10/21/21 15:30:00 EDT, [facility] Partial fill upon patient request if the prescription is for a schedule II... Start Date: 10/21/21 Stop Date: 11/20/21 Status: Ordered fluticasone 50 mcg/inh nasal spray 1 sprays = 50 mcg, Nares, Both, Daily at bedtime, # 16 Gm, 0 Refills, Maintenance, 10/21/21 15:30:00 EDT, Nasal [place], [facility]- [id number], Partial fill upon patient request if the prescription is for a schedule II opioid drug., 1 spray... Start Date: 10/21/21 Status: Ordered folic acid 1 mg oral tablet 1 mg, 1, tablet, By Mouth, Daily, # 30 tablet, Refills 0, Tot. Refills 0, Maintenance, 10/21/21 15:30:00 EDT, Route to Pharmacy Electronically, [id number], Partial fill upon patient request if the prescription is for a schedule... Start Date: 10/21/21 Status: Ordered hydrOXYzine hydrochloride 25 mg oral tablet 1 tablet = 25 mg, By Mouth, Every 12 hours, PRN Agitation/ sleep, 0 Refills, Maintenance, 12/29/21 18:56:00 EDT, ; Start Date: 12/29/21 Status: Ordered mercaptopurine 50 mg oral tablet 1 tablet = 50 mg, By Mouth, Daily, # 30 tablet, 0 Refills, Maintenance, 10/21/21 15:30:00 EDT, Tablet, [facility]-[id number], Partial fill upon patient request if the [...] Tablet, ; Start Date: 12/29/21 Status: Ordered [place]-3 1000 mg oral capsule 1 capsule = 1,000 mg, By Mouth, 3 times a day, # 90 capsule, 0 Refills, Maintenance, 10/21/21 15:27:00 EDT, Capsule, [facility]-[id number], Partial fill upon patient request if the [...] EDT, Solution Start Date: 10/24/19 Status: Ordered Problem List Condition Confirmation Course Effective Dates Status Health St atus Informant Anxiety Confirmed Active Autism spectrum Confirmed Active Constipation Confirmed Active Crohn disease Confirmed Active Foreign body in hypopharynx Confirmed Active Pica Confirmed Active Prader-Willi syndrome Confirmed Active Prader-Willi syndrome Confirmed Active Severe obesity Confirmed Active Results Radiology Reports * Exam Date Time Procedure Performing Provider Status 06/13/22 8:04 PM Chest 2 Views Frontal and Lat Anthony Juárez; Auth (Verified) Notes: (Chest 2 Views Frontal and Lat) Reason For Exam: Foreign Body RESULT: Chest 2 Views Frontal and Lat Chest 2 Views Frontal and Lat Hx of Present Illness: coming from home - accidental swallowing of chicken bone. pt reports some difficulty breathing, states she can feel it. excessive secretions; Reason: Foreign Body; Clinical Question(s): Foreign Body COMPARISON: 06/08/2022. FINDINGS: Image quality is suboptimal due to underpenetration of the x-ray beams due to patient's body habitus and low lung volumes. LINES AND TUBES: None. LUNGS AND PLEURA: Low lung volumes with mild basilar atelectasis. Lungs are otherwise clear with no consolidation. No pleural effusion. No pneumothorax. HEART, MEDIASTINUM AND ROSA MARIA: Heart is normal in size. Normal mediastinal and hilar contour. No radiopaque foreign body is seen in the region of the esophagus. Evaluation of the upper abdomen is limited due to underpenetration of the x-ray beams. BONES AND SOFT TISSUES: No acute abnormality. IMPRESSION: No acute abnormality. No evidence of radiopaque foreign body with limitations of suboptimal image quality secondary to underpenetration of x-ray beams due to patient's body habitus and low lung volumes. WSN: [id number] Ordering Physician: Crystal Pineda Dictated By: Omer Vogel MD Dictated Date/Time: 06/13/22 9:00 pm Reviewed By: Omer Vogel MD Signed By: Omer Vogel MD Signed Date/Time: 06/13/22 9:00 pm Transcribed By: ROS Transcribed Date/Time: 06/13/22 8:57 pm Vital Signs Most recent to oldest [Reference Range]: 1 2 3 Oxygen Saturation [94-100 %] 93 % *L* (06/13/22 7:25 PM) 96 % (06/13/22 5:47 PM) 97 % (06/13/22 4:51 PM) Pulse Rate [55-90 bpm] 71 bpm (06/13/22 7:25 PM) 72 bpm (06/13/22 5:47 PM) 70 bpm (06/13/22 4:40 PM) Blood Pressure [90-138/55-84 mm Hg] 131/62mm Hg (06/13/22 7:25 PM) 143/81mm Hg *H* (06/13/22 5:47 PM) 151/86mm Hg *H* (06/13/22 4:51 PM) Respiratory Rate [16-30 br/min] 18 br/min (06/13/22 7:25 PM) 18 br/min (06/13/22 5:47 PM) 20 br/min (06/13/22 4:51 PM) Temperature [96.8-100.4 DegF] 98.1 DegF (06/13/22 4:40 PM) Mode of Delivery (Oxygen) Room air (06/13/22 7:25 PM) Room air (06/13/22 5:47 PM) Room air (06/13/22 4:51 PM) Blood pressure sites Arm, left (06/13/22 7:25 PM) Arm, left (06/13/22 5:47 PM) Arm, left (06/13/22 4:51 PM) Temperature Route Oral (06/13/22 4:40 PM) Social History Social History Type Response Smoking Status Never (less than 100 in lifetime) entered on: 09/17/20 Sex Note * Gravel DO, Teana: PERFORM Event Display: Patient Education Leaflets Authored Date: [id number] Swallowed Foreign Body (Adult) ?? [id number] Swallowed Foreign Body (Adult) Indigestible objects (foreign bodies) are sometimes swallowed by adults. Whether or not the object moves all the way through the digestive tract depends on many factors. This includes the size and shape of the object, whether the object is sharp and pointy, and what the object is made of. Based on your evaluation, no treatment is needed at this time. The swallowed object is expected to move through your digestive tract and pass out of the body in the stool with no problems. This may take about 24 to 48 hours, but could take longer depending on your bowel habits. If imaging tests were done, you will be told when the results are ready and if they affect your treatment. Home care ??? Follow any instructions from your provider about eating and drinking. In some cases, you may be told to only eat soft foods and drink liquids for the first 24 to 48 hours. ??? You will need to check your stool each time you have a bowel movement. This is so you can confirm that the object has passed, and look for signs of bleeding. If the object does not pass, it may mean that the object is stuck somewhere along the digestive tract. In such cases, the object may need to be removedwith a procedure. ?? Follow-up care Follow up with your healthcare provider as advised. You will be told if further treatment is needed. In certain cases, you may need to return to have imaging tests done. This is especially true if the object you swallowed is visible on X- ray and doesn't seem to be passing. Call your healthcare provider if you have any questions or concerns. ?? When to get medical advice Call your healthcare provider right away if any of the following occur: ??? Belly pain, cramps, or swelling ??? Trouble swallowing or pain with swallowing ??? Vomiting that won???t stop ??? Fever of 100.4??F (38??C) or higher, or as directed by your healthcare provider ??? Inability to pass stool ?? Call 911 Call 911??if any of the following occur: ??? Trouble breathing, wheezing, or coughing that won???t stop ??? Trouble speaking ??? Unusually fast heart rate ??? Chest pain that is new or getting worse ??? Vomiting blood (red or black) or bleeding from your rectum (red) ??? Blood in the stool (red or black) ??? Swelling of the neck ??? Weakness, dizziness, or faintness ?? Last Reviewed Date: 2022 ?? 0380-1524 [employer]. All rights reserved. This information is not intended as a substitute for professional medical care. Always follow your healthcare professional's instructions. ?? * [facility] , CIS S: TRANSCRIBE Omer Vogel MD: VERIFY Event Display: Result: Authored Date: [id number] Chest 2 Views Frontal and Lat Hx of Present Illness: coming from home - accidental swallowing of chicken bone. pt reports some difficulty breathing, states she can feel it. excessive secretions; Reason: Foreign Body; Clinical Question(s): Foreign Body COMPARISON: 06/08/2022. FINDINGS: Image quality is suboptimal due to underpenetration of the x-ray beams due to patient's body habitus and low lung volumes. LINES AND TUBES: None. LUNGS AND PLEURA: Low lung volumes with mild basilar atelectasis. Lungs are otherwise clear with no consolidation. No pleural effusion. No pneumothorax. HEART, MEDIASTINUM AND ROSA MARIA: Heart is normal in size. Normal mediastinal and hilar contour. No radiopaque foreign body is seen in the region of the esophagus. Evaluation of the upper abdomen is limited due to underpenetration of the x-ray beams. BONES AND SOFT TISSUES: No acute abnormality. IMPRESSION: No acute abnormality. No evidence of radiopaque foreign body with limitations of suboptimal image quality secondary to underpenetration of x-ray beams due to patient's body habitus and low lung volumes. WSN: [id number] Ordering Physician: Crystal Pineda Dictated By: Omer Vogel MD Dictated Date/Time: 06/13/22 9:00 pm Reviewed By: Omer Vogel MD Signed By: Omer Vogel MD Signed Date/Time: 06/13/22 9:00 pm Transcribed By: ROS Transcribed Date/Time: 06/13/22 8:57 pm Patient Care team information Care Team Personnel Name: John Frederick RN Position: S RN Member Role: Primary Care Nurse Name: Anthony Viveros RN Position: S RN Member Role: Primary Care Nurse Name: Rojas KAPLAN, [place] Position: [facility] Physician (General Medicine) Member Role: PCP Address: Address: [address] [place] [address]- [place] Name: Julia Sumner Position: [facility] RN Member Role: Primary Care Nurse Name: Bessie Gomes RN Position: [facility] RN Member Role: Primary Care Nurse Name: Ashlie Goodman RN Position: [facility] RN Member Role: Primary Care Nurse Name: Danielle Griffith RN Position: [facility] RN Member Role: Primary Care Nurse Name: Aneta Conte RN Position: [facility] RN Member Role: Primary Care Nurse Name: Carmelina Dunn LPN Position: [facility] RN Member Role: Primary Care Nurse Name: Janay Judd RN Position: [facility] RN Member Role: Primary Care Nurse Name: Brit Gracia RN Position: [facility] RN Member Role: Primary Care Nurse Name: Karma Miller RN Position: [facility] RN Member Role: Primary Care Nurse Name: Crys Schuster Position: [facility] ED [facility] Member Role: Repairer Shoe Sticks Name: Crystal Pineda DO Position: [facility] Resident Member Role: ED Resident Address: Address: [address] [place] [address]- [place] Name: Erick Smith RN Position: [facility] ED RN W/OE and Tasks Member Role: Patient Care Provider Name: Leyla Mcduffie MD Position: [facility] ED Medicine MD Member Role: Admitting Physician Address: Address: [address] [place] [address]- Care Team Related Persons Name: ELIZABETH REES Address: [address] [address] Name: ROLAND WILLIAM Address: [address] [address]
--- OUTSIDE RECORDS SUMMARY | 2023-09-23 06:11 | XMS_ITS | Continuity of Care Document ---
Author Organization [facility] ter Address [address] [place] [id number]- Care Team Providers Care Manager Hospice Name Role Phone Rojas KAPLAN, Asma Primary Care Physician [phone] Encounter [facility] [place] Date(s): 01/06/22 - 01/07/[address] [address]- Encounter Diagnosis Foreign body ingestion(Final) - 01/07/22 Discharge Disposition: A-D/C Home Attending Physician: Lan KAPLAN, Lucille Rodriguez Admitting Physician: Lucille Montenegro MD Referring Physician: Not on Staff, Referring MD Allergies, Adverse Reactions, Alerts Substance Reaction Severity Status Haldol Active LMX 4 with Tegaderm Active Immunizations Given and Recorded Vaccine Date Status Refusal Reason tetanus-diphtheria toxoids (Td) 10/12/18 Recorded Influenza Virus Vaccine (oldterm) 01/13/03 Recorde d Measles/Mumps/Rubella Virus Vaccine 10/05/00 Recor ded Hepatitis B Vaccine (old term) 95 Recorded Medications ARIPiprazole 5 mg oral tablet 5 mg, 1, tablet, By Mouth, Daily, # 30 tablet, Refills 0, Tot. Refills 0, Maintenance, 10/21/21 15:28:00 EDT, Route to Pharmacy Electronically, [email or web address]-[id number], Partial fill upon patient request if the prescription is for a schedule... Start Date: 10/21/21 Status: Ordered atenolol 25 mg oral tablet 25 mg, 1, tablet, By Mouth, Daily, # 30 tablet, Refills 0, Tot. Refills 0, Maintenance, 10/21/21 15:28:00 EDT, Route to Pharmacy Electronically, [facility] [place]-[id number], Partial fill upon patient request if the prescription is for a schedul... Start Date: 10/21/21 Status: Ordered calcium (as citrate)-vitamin D 200 mg-250 intl units oral tablet 1 tablet, By Mouth, Daily in AM, # 30 tablet, 0 Refills, Maintenance, 10/21/21 15:24:00 EDT, Tablet, [facility]-[id number], Partial fill upon patient request if the prescription is for aschedule II opioid drug., 1 tablet By Mouth Daily i... Start Date: 10/21/21 Status: Ordered cholecalciferol 2000 intl units oral capsule 1 capsule = 50 mcg, By Mouth, Daily, # 30 capsule, 0 Refills, Maintenance, 10/21/21 15:27:00 EDT, Capsule, [facility]-23369, Partial fill upon patient request if the prescription isfor a schedule II opioid drug., 152.4, cm, 10/21/21... Start Date: 10/21/21 Stop Date: 11/20/21 Status: Ordered famotidine 40 mg oral tablet 1 tablet = 40 mg, By Mouth, Daily, # 30 tablet, 0 Refills, Maintenance, 12/29/21 18:57:00 EDT, Tablet, Partial fill upon patient request if the prescription is for a schedule II opioid drug. Start Date: 12/29/21 Status: Ordered FLUoxetine 20 mg oral capsule 20 mg, By Mouth, Daily in AM, # 30 capsule, Refills 0, Tot. Refills 0, Maintenance, 10/21/21 15:30:00 EDT, Route to Pharmacy Electronically, [facility]-[id number], Partial fill upon patient request if the prescription is for a schedule II... Start Date: 10/21/21 Stop Date: 11/20/21 Status: Ordered fluticasone 50 mcg/inh nasal spray 1 sprays = 50 mcg, Nares, Both, Daily at bedtime, # 16 Gm, 0 Refills, Maintenance, 10/21/21 15:30:00 EDT, Nasal [address], [facility]- [address], Partial fill upon patient request if the prescription is for a schedule II opioid drug., 1 spray... Start Date: 10/21/21 Status: Ordered folic acid 1 mg oral tablet 1 mg, 1, tablet, By Mouth, Daily, # 30 tablet, Refills 0, Tot. Refills 0, Maintenance, 10/21/21 15:30:00 EDT, Route to Pharmacy Electronically, [facility]-[id number], Partial fill upon patient request if the prescription is for a schedule... Start Date: 10/21/21 Status: Ordered hydrOXYzine hydrochloride 25 mg oral tablet 1 tablet = 25 mg, By Mouth, 2 times a day, PRN Agitation/ sleep, 0 Refills, Maintenance, 12/29/21 18:56:00 EDT, Partial fill upon patient request if the prescription is for a schedule II opioid drug. Start Date: 12/29/21 Status: Ordered mercaptopurine 50 mg oral tablet 1 tablet = 50 mg, By Mouth, Daily, # 30 tablet, 0 Refills, Maintenance, 10/21/21 15:30:00 EDT, Tablet, [facility]-99116, Partial fill upon patient request if the prescription is fora schedule II opioid drug., 152.4, cm, 10/21/21 11:... Start Date: 10/21/21 Status: Ordered MiraLax oral powder for reconstitution = 17 Gm, By Mouth, Daily, PRN as needed, dissolve in water before taking, Maintenance, 11/05/21 19:18:00 EDT, REC Powder, Partial fill upon patient request if the prescription is for a schedule II opioid drug. Start Date: 11/05/21 Status: Ordered naltrexone 50 mg oral tablet 1 tablet = 50 mg, By Mouth, Daily, # 30 tablet, 0 Refills, Maintenance, 12/29/21 18:57:00 EDT, Tablet, Partial fill upon patient request if the prescription is for a schedule II opioid drug. Start Date: 12/29/21 Status: Ordered [place]-3 1000 mg oral capsule 1 capsule = 1,000 mg, By Mouth, 3 times a day, # 90 capsule, 0 Refills, Maintenance, 10/21/21 15:27:00 EDT, Capsule, [facility]-91988, Partial fill upon patient request if the prescription is for a schedule II opioid drug., 152.4, cm... Start Date: 10/21/21 Stop Date: 11/20/21 Status: Ordered pantoprazole 40 mg oral delayed release tablet = 40 mg, By Mouth, Daily, # 30 tablet, 0 Refills, Maintenance, 10/21/21 15:30:00 EDT, EC Tablet, 152.4, cm, 10/21/21 11:01:00 EDT, Height, 96.9, kg, 03/11/21 12:15:00 EST, Dry Weight Start Date: 10/21/21 Stop Date: 11/20/21 Status: Ordered silver sulfADIAZINE 1% topical cream APPLY A 1.5MM IN THICKNESS TOPICALLY DAILY NEEDED FOR VAGINAL ITCHING Start Date: 12/29/21 Status: Ordered sodium chloride 0.65% nasal spray 1 sprays, Nares, Both, 2 times a day, PRN Other, dryness, # 1 each, 2 Refills, Maintenance, 10/21/21 15:28:00 EDT, Nasal [address], [facility]- [address], Partial fill upon patient request if the prescription is for a schedule II opioid drug.... Start Date: 10/21/21 Status: Ordered Stelara PFS 90 mg/mL subcutaneous solution 1 mL = 90 mg, Subcutaneous Injection, Every 8 Weeks, # 1 mL, 0 Refills, Maintenance, 10/24/19 23:19:00 EDT, Solution Start Date: 10/24/19 Status: Ordered Problem List Condition Confirmation Course Effective Dates Status Health St atus Informant Anxiety Confirmed Active Autism spectrum Confirmed Active Constipation Confirmed Active Crohn disease Confirmed Active Foreign body in hypopharynx Confirmed Active Pica Confirmed Active Prader-Willi syndrome Confirmed Active Prader-Willi syndrome Confirmed Active Severe obesity Confirmed Active Vital Signs Most recent to oldest [Reference Range]: 1 2 3 Oxygen Saturation [94-100 %] 97 % (01/07/22 12:16 AM) 99 % (01/06/22 11:05 PM) 98 % (01/06/22 10:00 PM) Pulse Rate [55-90 bpm] 85 bpm (01/07/22 12:16 AM) 69 bpm (01/06/22 11:05 PM) 71 bpm (01/06/22 10:00 PM) Blood Pressure [90-138/55-84 mm Hg] 115/71mm Hg (01/07/22 12:16 AM) 122/63mm Hg (01/06/22 11:05 PM) 119/65mm Hg (01/06/22 10:00 PM) Respiratory Rate [16-30 br/min] 16 br/min (01/07/22 12:16 AM) 20 br/min (01/06/22 11:05 PM) 26 br/min (01/06/22 10:00 PM) Temperature [96.8-100.4 DegF] 97.8 DegF (01/06/22 8:53 PM) Mode of Delivery (Oxygen) Room air (01/07/22 12:16 AM) Room air (01/06/22 11:05 PM) Room air (01/06/22 10:00 PM) Blood pressure sites Arm, left (01/07/22 12:16 AM) Arm, right (01/06/22 11:05 PM) Arm, right (01/06/22 10:00 PM) Temperature Route Oral (01/07/22 12:16 AM) Oral (01/06/22 8:53 PM) Social History Social History Type Response Smoking Status Never (less than 100 in lifetime) entered on: 09/17/20 Sex Patient Care team information Personnel Name: Rojas KAPLAN, Raffia Address: Address: [facility] [place], [place] [address]
--- OUTSIDE RECORDS SUMMARY | 2023-09-23 06:11 | XMS_ITS | Continuity of Care Document ---
Author Organization [facility] Address [address] [place] [id number]- Care Team Providers Care Bi Architect Name Role Phone Rojas KAPLAN, Asmbrayan Primary Care Physician Encounter [facility] [place] Date(s): 01/25/22 - 01/25/[address] [address]- Encounter Diagnosis Foreign body in pharynx(Final) - 01/25/22 Foreign body in stomach(Final) - 01/25/22 Discharge Disposition: A-D/C Home Attending Physician: Jessi Glez MD Admitting Physician: Jessi Glez MD Referring Physician: Not on Staff, Referring [...] 10/21/21 15:28:00 EDT, Route to Pharmacy Electronically, [facility], Partial fill upon patient request if the prescription is for a schedule... Start Date: 10/21/21 Status: Ordered atenolol 25 mg oral tablet 25 mg, 1, tablet, By Mouth, Daily, # 30 tablet, Refills 0, Tot. Refills 0, Maintenance, 10/21/21 15:28:00 EDT, Route to Pharmacy Electronically, [facility]-[address]3594, Partial fill upon patient request if the prescription is for a schedul... Start Date: 10/21/21 Status: Ordered calcium (as citrate)-vitamin D 200 mg-250 intl units oral tablet 1 tablet, By Mouth, Daily in AM, # 30 tablet, 0 Refills, Maintenance, 10/21/21 15:24:00 EDT, Tablet, [facility]663, Partial fill upon patient request if the prescription is for aschedule II opioid drug., 1 tablet By Mouth Daily i... Start Date: 10/21/21 Status: Ordered cholecalciferol 2000 intl units oral capsule 1 capsule = 50 mcg, By Mouth, Daily, # 30 capsule, 0 Refills, Maintenance, 10/21/21 15:27:00 EDT, Capsule, [facility]-62101, Partial fill upon patient request if the [...] 10/21/21 15:30:00 EDT, Route to Pharmacy Electronically, [facility]-19098, Partial fill upon patient request if the prescription is for a schedule II... Start Date: 10/21/21 Stop Date: 11/20/21 Status: Ordered fluticasone 50 mcg/inh nasal spray 1 sprays = 50 mcg, Nares, Both, Daily at bedtime, # 16 Gm, 0 Refills, Maintenance, 10/21/21 15:30:00 EDT, Nasal [place], [facility]- [address], Partial fill upon patient request if the prescription is for a schedule II opioid drug., 1 spray... Start Date: 10/21/21 Status: Ordered folic acid 1 mg oral tablet 1 mg, 1, tablet, By Mouth, Daily, # 30 tablet, Refills 0, Tot. Refills 0, Maintenance, 10/21/21 15:30:00 EDT, Route to Pharmacy Electronically, [facility]84, Partial fill upon patient request if the [...] 0 Refills, Maintenance, 10/21/21 15:30:00 EDT, Tablet, [facility]-15405, Partial fill upon patient request if the [...] Tablet, ; Start Date: 12/29/21 Status: Ordered [place]-3 1000 mg oral capsule 1 capsule = 1,000 mg, By Mouth, 3 times a day, # 90 capsule, 0 Refills, Maintenance, 10/21/21 15:27:00 EDT, Capsule, [facility]-37206, Partial fill upon patient request if the [...] Exam Date Time Procedure Performing Provider Status 01/25/22 1:55 PM Neck Soft Tissue Dulce Olvera; Brayan ut (Verified) Notes: (Neck Soft Tissue) Reason For Exam: FB;Other: RESULT: Neck Soft Tissue Soft tissue evaluation of the neck as the December 2014. Comparison films are from today. FINDINGS: This examination is seen. The epiglottis, aryepiglottic folds, and hypopharynx are noted in the Visualized osseous structures are unremarkable. IMPRESSION: Rounded metallic foreign body is no longer noted. Thank you for allowing me to participate in the care of this patient. WSN: [id number] Ordering Physician: Lucian Lance Dictated By: Dylan Ocampo MD Dictated Date/Time: 01/25/22 2:07 pm Reviewed By: Dylan Ocampo MD Signed By: Dylan Ocampo MD Signed Date/Time: 01/25/22 2:07 pm Transcribed By: ROS Transcribed Date/Time: 01/25/22 2:06 pm * Exam Date Time Procedure Performing Provider Status 01/25/22 1:55 PM Chest 2 Views Frontal and Lat Dulce Olvera; Farida (Verified) Notes: (Chest 2 Views Frontal and Lat) Reason For Exam: Pain;Foreign Body RESULT: Chest 2 Views Frontal and Lat PA and lateral chest dated January 25, 2022. Comparison films are from earlier in the day. HISTORY: Ingested foreign body. FINDINGS: The cardiac silhouette is within normal limits for size. Hilar and mediastinal structuresare unremarkable. The rounded metallic foreign body noted in the hypopharynx on the previous examination now overlies the left upper quadrant in the region of the stomach. This expiratory chest x-ray shows vascular crowding and interstitial prominence. There is a convex right thoracic scoliosis. IMPRESSION: The ingested foreign body has traveled from the neck into the left upper quadrant overlying the stomach. The expiratory chest x-ray probably accounts for the appearance of the lungs. Examination [address]. Thank you for allowing me to participate in the care of this patient. WSN: [id number] Ordering Physician: Tammy Masterson Dictated By: Dylan Ocampo MD Dictated Date/Time: 01/25/22 2:05 pm Reviewed By: Dylan Ocampo MD Signed By: Dylan Ocampo MD Signed Date/Time: 01/25/22 2:05 pm Transcribed By: ROS Transcribed Date/Time: 01/25/22 2:05 pm * Exam Date Time Procedure Performing Provider Status 01/25/22 11:27 AM Neck Soft Tissue Bein , Pamela; Auth ( Verified) Notes: (Neck Soft Tissue) Reason For Exam: with Pain;Foreign Body RESULT: Neck Soft Tissue Soft tissue examination of the neck 2 views dated January 25, 2022. Comparison films are from January 12, 2022. HISTORY: Ingested foreign body. FINDINGS: There is a rounded metallic foreign body measuring up to 22 mm in diameter lodged in the right hypopharynx anteriorly above the level of the hyoid. Visualized osseous structures are unremarkable. IMPRESSION: Radiopaque foreign body to the right of midline anteriorly just proximal to the hyoid bone. Thank you for allowing me to participate in the care of this patient. WSN: [id number] Ordering Physician: Jennifer Leblanc Dictated By: Dylan Ocampo MD Dictated Date/Time: 01/25/22 12:51 p Reviewed By: Dylan Ocampo MD Signed By: Dylan Ocampo MD Signed Date/Time: 01/25/22 12:51 pm Transcribed By: ROS Transcribed Date/Time: 01/25/22 12:51 pm * Exam Date Time Procedure Performing Provider Status 01/25/22 11:27 AM Chest 2 Views Frontal and Lat Bein , Pamela; Auth (Verified) Notes: (Chest 2 Views Frontal and Lat) Reason For Exam: Pain;Foreign Body RESULT: Chest 2 Views Frontal and Lat PA and lateral chest dated January 25, 2022. Comparison films are from December 29, 2021. HISTORY: Pain. Question foreign body or pneumothorax. FINDINGS: Today's study is limited by artifact from Believe is the patient's hair. The cardiac silhouette is within normal limits for size. Hilar and mediastinal structures are unremarkable. No airspace infiltrate or pleural effusion is identified. Noradiopaque foreign body or soft tissue gas is seen. Minimal degenerative changes are noted in the spine. IMPRESSION: No evidence of acute pulmonary disease. No evidence of radiopaque foreign body. Examination [address]. Thank you for allowing me to participate in the care of this patient. WSN: [id number] Ordering Physician: Jennifer Leblanc Dictated By: Dylan Ocampo MD Dictated Date/Time: 01/25/22 12:44 p Reviewed By: Dylan Ocampo MD Signed By: Dylan Ocampo MD Signed Date/Time: 01/25/22 12:44 pm Transcribed By: ROS Transcribed Date/Time: 01/25/22 12:44 pm Vital Signs Most recent to oldest [Reference Range]: 1 2 3 Oxygen Saturation [94-100 %] 98 % (01/25/22 4:25 PM) 96 % (01/25/22 3:25 PM) 97 % (01/25/22 1:26 PM) Pulse Rate [55-90 bpm] 81 bpm (01/25/22 4:25 PM) 84 bpm (01/25/22 3:25 PM) 75 bpm (01/25/22 1:26 PM) Blood Pressure [90-138/55-84 mm Hg] 142/111mm Hg *H* (01/25/22 4:25 PM) 133/98mm Hg (01/25/22 1:26 PM) 118/79mm Hg (01/25/22 12:15 PM) Respiratory Rate [16-30 br/min] 20 br/min (01/25/22 4:25 PM) 15 br/min *L* (01/25/22 3:25 PM) 14 br/min *L* (01/25/22 1:26 PM) Temperature [96.8-100.4 DegF] 98.3 DegF (01/25/22 4:25 PM) 98.1 DegF (01/25/22 3:25 PM) 98.7 DegF (01/25/22 12:15 PM) Mode of Delivery (Oxygen) Room air (01/25/22 4:25 PM) Room air (01/25/22 3:25 PM) Room air (01/25/22 1:26 PM) Blood pressure sites Arm, left (01/25/22 4:25 PM) Arm, left (01/25/22 3:25 PM) Arm, left (01/25/22 1:26 PM) Temperature Route Oral (01/25/22 4:25 PM) Oral (01/25/22 3:25 PM) Oral (01/25/22 12:15 PM) Social History Social History Type Response Smoking Status Never (less than 100 in lifetime) entered on: 09/17/20 Sex Note * CARMENSPowerscribe , CIS S: TRANSCRIBE Dylan Ocampo MD: VERIFY Event Display: Result: Authored Date: [id number] PA and lateral chest dated January 25, 2022. Comparison films are from December 29, 2021. HISTORY: Pain. Question foreign body or pneumothorax. FINDINGS: Today's study is limited by artifact from Believe is the patient's hair. The cardiac silhouette is within normal limits for size. Hilar and mediastinal structures are unremarkable. No airspace infiltrate or pleural effusion is identified. Noradiopaque foreign body or soft tissue gas is seen. Minimal degenerative changes are noted in the spine. IMPRESSION: No evidence of acute pulmonary disease. No evidence of radiopaque foreign body. Examination [address]. Thank you for allowing me to participate in the care of this patient. WSN: [id number] Ordering Physician: Jennifer Leblanc Dictated By: Dylan Ocampo MD Dictated Date/Time: 01/25/22 12:44 p Reviewed By: Dylan Ocampo MD Signed By: Dylan Ocampo MD Signed Date/Time: 01/25/22 12:44 pm Transcribed By: ROS Transcribed Date/Time: 01/25/22 12:44 pm * Seth , CIS S: TRANSCRIDylan Mejia MD: VERIFY Event Display: Result: Authored Date: [id number] Soft tissue examination of the neck 2 views dated January 25, 2022. Comparison films are from January 12, 2022. HISTORY: Ingested foreign body. FINDINGS: There is a rounded metallic foreign body measuring up to 22 mm in diameter lodged in the right hypopharynx anteriorly above the level of the hyoid. Visualized osseous structures are unremarkable. IMPRESSION: Radiopaque foreign body to the right of midline anteriorly just proximal to the hyoid bone. Thank you for allowing me to participate in the care of this patient. WSN: [id number] Ordering Physician: Jennifer Leblanc Dictated By: Dylan Ocampo MD Dictated Date/Time: 01/25/22 12:51 p Reviewed By: Dylan Ocampo MD Signed By: Dylan Ocampo MD Signed Date/Time: 01/25/22 12:51 pm Transcribed By: ROS Transcribed Date/Time: 01/25/22 12:51 pm * BHSPowerscrijono , CIS S: TRANSCRIBE Dylan Ocampo MD: VERIFY Event Display: Result: Authored Date: [id number] PA and lateral chest dated January 25, 2022. Comparison films are from earlier in the day. HISTORY: Ingested foreign body. FINDINGS: The cardiac silhouette is within normal limits for size. Hilar and mediastinal structuresare unremarkable. The rounded metallic foreign body noted in the hypopharynx on the previous examination now overlies the left upper quadrant in the region of the stomach. This expiratory chest x-ray shows vascular crowding and interstitial prominence. There is a convex right thoracic scoliosis. IMPRESSION: The ingested foreign body has traveled from the neck into the left upper quadrant overlying the stomach. The expiratory chest x-ray probably accounts for the appearance of the lungs. Examination 63067. Thank you for allowing me to participate in the care of this patient. WSN: [id number] Ordering Physician: Tammy Masterson Dictated By: Dylan Ocampo MD Dictated Date/Time: 01/25/22 2:05 pm Reviewed By: Dylan Ocampo MD Signed By: Dylan Ocampo MD Signed Date/Time: 01/25/22 2:05 pm Transcribed By: ROS Transcribed Date/Time: 01/25/22 2:05 pm * BHSPowerscribe , FREYA S: TRANSCRIBE Dylan Ocampo MD: VERIFY Event Display: Result: Authored Date: [id number] Soft tissue evaluation of the neck as the December 2014. Comparison films are from today. FINDINGS: This examination is seen. The epiglottis, aryepiglottic folds, and hypopharynx are noted in the Visualized osseous structures are unremarkable. IMPRESSION: Rounded metallic foreign body is no longer noted. Thank you for allowing me to participate in the care of this patient. WSN: [id number] Ordering Physician: Lucian Lance Dictated By: Dylan Ocampo MD Dictated Date/Time: 01/25/22 2:07 pm Reviewed By: Dylan Ocampo MD Signed By: Dylan Ocampo MD Signed Date/Time: 01/25/22 2:07 pm Transcribed By: ROS Transcribed Date/Time: 01/25/22 2:06 pm Patient Care team information Personnel Name: Rojas KAPLAN, [facility] Address: Address: [address] [place] [id number]
--- OUTSIDE RECORDS SUMMARY | 2023-09-23 06:11 | XMS_ITS | Continuity of Care Document ---
Author Organization [facility] ter Address [address] [place] [address]- Care Team Providers Care Account Installation Specialist Name Role Phone Rojas KAPLAN, Asma Primary Care Physician Encounter [facility] Date(s): 10/02/22 - 10/02/[address] [address]- Encounter Diagnosis Foreign body ingestion(Final) - 10/02/22 Discharge Disposition: A-D/C Home Attending Physician: Ellen Alfaro MD Admitting Physician: Ellen Alfaro MD Referring Physician: Not on Staff, Referring [...] 10/21/21 15:28:00 EDT, Route to Pharmacy Electronically, [facility]-[id number], Partial fill upon patient request if the [...] 0 Refills, Maintenance, 10/21/21 15:24:00 EDT, Tablet, [facility]-[id number], Partial fill upon patient request if the prescription is for aschedule II opioid drug., 1 tablet By Mouth Daily i... Start Date: 10/21/21 Status: Ordered cholecalciferol 2000 intl units oral capsule 1 capsule = 50 mcg, By Mouth, Daily, # 30 capsule, 0 Refills, Maintenance, 10/21/21 15:27:00 EDT, Capsule, [facility]-[id number], Partial fill upon patient request if the [...] 10/21/21 15:30:00 EDT, Route to Pharmacy Electronically, [facility]-[id number], Partial fill upon patient request if the prescription is for a schedule II... Start Date: 10/21/21 Stop Date: 11/20/21 Status: Ordered fluticasone 50 mcg/inh nasal spray 1 sprays = 50 mcg, Nares, Both, Daily at bedtime, # 16 Gm, 0 Refills, Maintenance, 10/21/21 15:30:00 EDT, Nasal [place], [facility]- 43941, Partial fill upon patient request if the prescription is for a schedule II opioid drug., 1 spray... Start Date: 10/21/21 Status: Ordered folic acid 1 mg oral tablet 1 mg, 1, tablet, By Mouth, Daily, # 30 tablet, Refills 0, Tot. Refills 0, Maintenance, 10/21/21 15:30:00 EDT, Route to Pharmacy Electronically, [facility]-59559, Partial fill upon patient request if the [...] 0 Refills, Maintenance, 10/21/21 15:30:00 EDT, Tablet, [facility]-[id number], Partial fill upon patient request if the [...] Tablet, ; Start Date: 12/29/21 Status: Ordered [place]-3 1000 mg oral capsule 1 capsule = 1,000 mg, By Mouth, 3 times a day, # 90 capsule, 0 Refills, Maintenance, 10/21/21 15:27:00 EDT, Capsule, [facility]-[id number], Partial fill upon patient request if the [...] List Condition Confirmation Course Effective Dates Status [facility] at Informant Anxiety Confirmed Active Autism spectrum Confirmed Active Constipation Confirmed Active Crohn disease Confirmed Active Foreign body in hypopharynx Confirmed Active Pica Confirmed Active Prader-Willi syndrome Confirmed Active Prader-Willi syndrome Confirmed Active Severe obesity Confirmed Active Vital Signs Most recent to oldest [Reference Range]: 1 2 Height 142 cm (10/02/22 6:14 PM) Oxygen Saturation [94-100 %] 91 % *L* (10/02/22 6:14 PM) 94 % (10/02/22 6:05 PM) Pulse Rate [55-90 bpm] 81 bpm (10/02/22 6:14 PM) 84 bpm (10/02/22 6:05 PM) Blood Pressure [90-138/55-84 mm Hg] 101/ 64mm Hg (10/02/22 6:14 PM) Respiratory Rate [16-30 br/min] 18 br/mi n (10/02/22 6:05 PM) Temperature [96.8-100.4 DegF] 99.5 DegF (10/02/22 6:14 PM) Mode of Delivery (Oxygen) Room air (10/02/22 6:14 PM) Room air (10/02/22 6:05 PM) Blood pressure sites Arm, left (10/02/22 6:14 PM) Temperature Route Oral (10/02/22 6:14 PM) Dry Weight 105.0 kg (10/02/22 6:14 PM) Weight Obtained Via Patient/family state d (10/02/22 6:14 PM) Dry Weight Obtained Via Standing scale (10/02/22 6:14 PM) Social History Social History Type Response Smoking Status Never (less than 100 in lifetime) entered on: 09/17/20 Sex Female Patient Care team information Care Team Personnel Name: John Frederick RN Position: [facility] RN Member Role: Primary Care Nurse Name: Minoo Rascon RN Position: [facility] RN Member Role: Primary Care Nurse Name: Anthony Viveros RN Position: [facility] RN Member Role: Primary Care Nurse Name: Galen Xie MD Position: [facility] Physician - Primary Care Member Role: PCP Address: Address: [address] Name: Charla Galindo RN Position: S RN Member Role: Primary Care Nurse Name: Julia Sumner Position: S RN Member Role: Primary Care Nurse Name: Bessie Gomes RN Position: S RN Member Role: Primary Care Nurse Name: Ashlie Goodman RN Position: S RN Member Role: Primary Care Nurse Name: Danielle Griffith RN Position: S RN Member Role: Primary Care Nurse Name: Aneta Conte RN Position: S RN Member Role: Primary Care Nurse Name: Carmelina Dunn LPN Position: S RN Member Role: Primary Care Nurse Name: Janay Judd RN Position: S RN Member Role: Primary Care Nurse Name: Brit Gracia RN Position: S RN Member Role: Primary Care Nurse Name: Karma Miller RN Position: S RN Member Role: Primary Care Nurse Name: Ellen Alfaro MD Position: [facility] ED Medicine MD Member Role: Admitting Physician Address: Address: [address] [place] [address] [place] [address]- Care Team Related Persons Name: ELIZABETH LEIVA Address: home [address] [place] [address] Name: MELO KUMAR Address: home [address] [place] [address] Name: ROLAND WILLIAM Address: [address] [place] [address]
--- OUTSIDE RECORDS SUMMARY | 2023-09-23 06:11 | XMS_ITS | Continuity of Care Document ---
Author Organization [facility] ter Address [address] [place] [address]- Care Team Providers Care Circus Agent Name Role Phone Rojas KAPLAN, Galen Primary Care Physician [phone] Encounter [facility] Date(s): 03/23/23 - 03/23/[address] [address]- Encounter Diagnosis Foreign body ingestion(Final) - 03/23/23 Pica(Final) - 03/23/23 Discharge Disposition: A-D/C Home Attending Physician: Anabelle Solomon MD Admitting Physician: Anabelle Solomon MD Referring Physician: Not on Staff, Referring [...] 10/21/21 15:28:00 EDT, Route to Pharmacy Electronically, [facility]-[id number], Partial fill upon patient request if the [...] 0 Refills, Maintenance, 10/21/21 15:24:00 EDT, Tablet, [facility]-[id number], Partial fill upon patient request if the prescription is for aschedule II opioid drug., 1 tablet By Mouth Daily i... Start Date: 10/21/21 Status: Ordered cholecalciferol 2000 intl units oral capsule 1 capsule = 50 mcg, By Mouth, Daily, # 30 capsule, 0 Refills, Maintenance, 10/21/21 15:27:00 EDT, Capsule, [facility]-49766, Partial fill upon patient request if the [...] 10/21/21 15:30:00 EDT, Route to Pharmacy Electronically, [facility]-[id number], Partial fill upon patient request if the prescription is for a schedule II... Start Date: 10/21/21 Stop Date: 11/20/21 Status: Ordered fluticasone 50 mcg/inh nasal spray 1 sprays = 50 mcg, Nares, Both, Daily at bedtime, # 16 Gm, 0 Refills, Maintenance, 10/21/21 15:30:00 EDT, Nasal [place], [facility]- 00453, Partial fill upon patient request if the prescription is for a schedule II opioid drug., 1 spray... Start Date: 10/21/21 Status: Ordered folic acid 1 mg oral tablet 1 mg, 1, tablet, By Mouth, Daily, # 30 tablet, Refills 0, Tot. Refills 0, Maintenance, 10/21/21 15:30:00 EDT, Route to Pharmacy Electronically, [facility]-03905, Partial fill upon patient request if the [...] 0 Refills, Maintenance, 10/21/21 15:30:00 EDT, Tablet, [facility]-[id number], Partial fill upon patient request if the [...] Tablet, ; Start Date: 12/29/21 Status: Ordered [place]-3 1000 mg oral capsule 1 capsule = 1,000 mg, By Mouth, 3 times a day, # 90 capsule, 0 Refills, Maintenance, 10/21/21 15:27:00 EDT, Capsule, [facility]-[id number], Partial fill upon patient request if the [...] Confirmation Course Effective Dates Status [facility] at Informant Anxiety Confirmed Active Autism spectrum Confirmed Active Constipation Confirmed Active Crohn disease Confirmed Active Foreign body in hypopharynx Confirmed Active Pica Confirmed Active Prader-Willi syndrome Confirmed Active Prader-Willi syndrome Confirmed Active Severe obesity Confirmed Active Results Radiology Reports * Exam Date Time Procedure Performing Provider Status 03/23/23 9:16 AM Neck Soft Tissue Cee Colon (Verified) Notes: (Neck Soft Tissue) Reason For Exam: Foreign Body RESULT: Neck Soft Tissue Neck Soft Tissue Hx of Present Illness: Pt is coming from home,when a careworker came to her home to take care of her when the staff member saw her take an airpod and swallowed it. Pt has hx of PICA. Pt c o throat irritation, speaks in full clear sentneces with no difficulty breathing; Reason: Foreign Body; Clinical Question(s): Foreign Body Location COMPARISON: 01/15/2023 and prior. FINDINGS: 2 radiopaque foreign bodies are seen projecting over the vertebral bodies of T2 and T3 slightly to the left side within the esophagus. Patent nasopharynx. No abnormal adenoidal enlargement. Normal retropharyngeal and retrotracheal soft tissues. Normal airway. Normal bones. IMPRESSION: 2 radiopaque foreign bodies are seen projecting over the vertebral bodies of T2 and T3 within the esophagus consistent with patient's history. Results were conveyed via [employer] by Dr. Jerome Forrest on 03/23/2023 to Crystal Pineda DO at 9:22 AM, with understanding acknowledged. I have personally reviewed the images and I agree with this report. WSN: [id number] Ordering Physician: Crystal Pineda Dictated By: Jerome Forrest MD Dictated Date/Time: 03/23/23 9:31 am Reviewed By: Man Rockwell MD Signed By: Man Rockwell MD Signed Date/Time: 03/23/23 9:36 am Transcribed By: ROS Transcribed Date/Time: 03/23/23 9:22 am Vital Signs Most recent to oldest [Reference Range]: 1 2 3 Height 153 cm (03/23/23 6:30 PM) 153 cm (03/23/23 3:05 PM) 153 cm (03/23/23 11:08 AM) Weight 103 kg (03/23/23 6:30 PM) 103 kg (03/23/23 3:05 PM) 103 kg (03/23/23 11:08 AM) Oxygen Saturation [94-100 %] 99 % (03/23/23 6:30 PM) 96 % (03/23/23 3:49 PM) 93 % *L* (03/23/23 3:05 PM) Pulse Rate [55-90 bpm] 78 bpm (03/23/23 6:30 PM) 71 bpm (03/23/23 3:49 PM) 76 bpm (03/23/23 3:05 PM) Body Mass Index [18.5-24.99 kg/m2] 44 kg/m2 *>HHI* (03/23/23 6:30 PM) 44 kg/m2 *>HHI* (03/23/23 3:05 PM) 44 kg/m2 *>HHI* (03/23/23 11:08 AM) Blood Pressure [90-138/55-84 mm Hg] 132/78mm Hg (03/23/23 6:30 PM) 125/60mm Hg (03/23/23 3:49 PM) 120/69mm Hg (03/23/23 3:05 PM) Respiratory Rate [16-30 br/min] 18 br/min (03/23/23 6:30 PM) 18 br/min (03/23/23 3:05 PM) 16 br/min (03/23/23 11:08 AM) Temperature [96.8-100.4 DegF] 98.2 DegF (03/23/23 6:30 PM) 97.4 DegF (03/23/23 3:05 PM) 97.5 DegF (03/23/23 8:27 AM) Liters per Minute 2 L/min (03/23/23 11:08 AM) Mode of Delivery (Oxygen) Room air (03/23/23 6:30 PM) Room air (03/23/23 3:49 PM) Room air (03/23/23 3:05 PM) Blood pressure sites Arm, right (03/23/23 6:30 PM) Arm, left (03/23/23 3:49 PM) Arm, left (03/23/23 3:05 PM) Temperature Route Oral (03/23/23 6:30 PM) Oral (03/23/23 3:05 PM) Axillary (03/23/23 8:27 AM) Dry Weight 103 kg (03/23/23 6:30 PM) 103 kg (03/23/23 11:08 AM) 103 kg (03/23/23 8:31 AM) Social History Social History Type Response Smoking Status Never (less than 100 in lifetime) entered on: 09/17/20 Sex Female Endoscopy study * Event Display: GG EGD Please click on pdf link to open report Consult note * Skyler Mills DO: PERFORM, MODIFY, MODIFY Event Display: Consultation Note Authored Date: [id number] Patient: ??ADILENE MATHEWS ? Age:??28 Years?Sex:??Female?:??1995?? Referrring Provider Crystal Pineda, DO Chief Complaint Pt ??is coming from home,when a careworker came ??to her home to take care of her when the staff member saw her take an airpod and swallowed it. Pt has hx of PICA. Pt ??c/o throat irritation, speaks in full clear sentneces with no difficulty ??breathing Reason for Consultation Foreign body ingestion History of Present Illness Adilene Mathews is a 28-year-old female with a history of Prader-Willi syndrome, autism and pica withfrequent admissions for foreign body ingestion presents to [facility] in the setting of swallowing an air pod. ?? Patient notes that she was using the bathroom when she found an air pod on the floor and decidedto swallow it.?? It appears that the air pod was dropped by one of the workers in the alf that she lives with.?? She noted that she immediately had pain.?? She states that the pain in her throat has since subsided and currently does not feel anything, but knows that it is still there due to x-ray imaging.?? She denies any other complaints at this time.?? No nausea or vomiting.?? No hematemesis.?? Upon presenting to [facility] patient was found to be hemodynamically stable and afebrile.?? No labs at this point to review.?? Soft tissue x-ray was obtained which shows 2 radiopaque foreign bodies p rojecting over the vertebral bodies of T2 and T3 within the esophagus consistent with the ingestion.?? Given these concerns GI consult was placed. Review of Systems A complete review of systems has been performed??and determined to be negative unless otherwise noted above in the patient's??HPI. Physical Exam Vitals & Measurements T:??97.5?F?? HR:??76??(Peripheral)?? RR:??18?? BP:??139/87?? SpO2:??95%?? WT:??103??kg?? Constitutional: Alert, in no distress.?? Obese Mental Status: A and O x4 Head: Normocephalic. Eyes: Pupils are equal, round and reactive to light. Extraocular muscles intact. Ear, Nose and Throat: Moist mucous membranes. Respiratory: Clear to auscultation. No wheezing, rales or rhonchi. Cardiovascular: S1 S2 regular. No murmurs, rubs or gallops. Gastrointestinal: Abdomen soft, non-tender, non-distended. No pulsatile mass. No hepatosplenomegaly. Neurologic: No focal neurological deficits. Skin: No rashes or lesions. Musculoskeletal: No gross deformities. Normal range of motion. Heme/Lymphatics/Immun: Palpation of neck reveals no swelling or tenderness of neck nodes. Assessment/Plan 28-year-old female with a history of Prader-Willi syndrome, autism and pica with frequent admissions for foreign body ingestion presents to [facility] in the setting of swallowing an airpod. ?? Diagnoses: Foreign body ingestion PICA ?? Plan: - Maintain NPO - Remainder of care per primary??team - EGD today. ?? Thank you for referring this patient to the Division of Gastroenterology, [facility] at [place], [place]. ??I appreciate the opportunity to participate in the care of yourpatient, and would be happy to assist you in future. ?? (The above document was created using [employer] voice recognition software. As such, beam builder helper errors may occur. Please contact the provider for additional questions and if clarification is needed.) ? Skyler Mills, DO PGY-5 Gastroenterology Fellow [facility] Division of Gastroenterology [facility] [email or web address] ?? Attestation: Patient??was seen and discussed with the attending, Dr. Bruce Oropeza. Problem List/Past Medical History Ongoing Anxiety Autism spectrum Constipation Crohn disease Dermatitis Foreign body in hypopharynx Foreign body ingestion Pica Prader-Willi syndrome Prader-Willi syndrome Severe obesity Procedure/Surgical History ???Bronchoscopy with removal of foreign body (07/05/2022)???Flexible bronchoscopy (07/05/2022)???Esophagogastroduodenoscopy (02/23/2022)???EGD - Esophagogastroduodenoscopy (10/16/2021) Medications Inpatient No active inpatient medications Home acetaminophen 325 mg oral tablet, 650 mg= 2 tablet, By Mouth, Daily, PRN atenolol 25 mg oral tablet, 25 mg= 1 tablet, By Mouth, Daily Ativan 1 mg oral tablet, 1 mg= 1 tablet, By Mouth, 2 times a day, PRN Benadryl 25 mg oral capsule, 25 mg= 1 capsule, By Mouth, Daily, PRN calcium (as citrate)-vitamin D 200 mg-250 intl units oral tablet, 1 tablet, By Mouth, Daily in AM cholecalciferol 2000 intl units oral capsule, 50 mcg= 1 capsule, By Mouth, Daily famotidine 40 mg oral tablet, 40 mg= 1 tablet, By Mouth, Daily FLUoxetine 20 mg oral capsule, 20 mg, By Mouth, Daily in AM fluticasone 50 mcg/inh nasal spray, 50 mcg= 1 sprays, Nares, Both, Daily at bedtime folic acid 1 mg oral tablet, 1 mg= 1 tablet, By Mouth, Daily hydrOXYzine hydrochloride 25 mg oral tablet, 25 mg= 1 tablet, By Mouth, Every 12 hours, PRN melatonin 10 mg oral tablet, 10 mg= 1 tablet, By Mouth, Daily at bedtime, PRN mercaptopurine 50 mg oral tablet, 50 mg= 1 tablet, By Mouth, Daily MiraLax oral powder for reconstitution, 17 Gm, By Mouth, Daily, PRN naltrexone 50 mg oral tablet, 50 mg= 1 tablet, By Mouth, Daily [place]-3 1000 mg oral capsule, 1000 mg= 1 capsule, By Mouth, 3 times a day Saline Nasal Mist, 2 spays, Nares, Both, Every 12 hours, PRN silver sulfADIAZINE 1% topical cream, 1/4 ribbon, Topically, Daily at bedtime Stelara PFS 90 mg/mL subcutaneous solution, 90 mg= 1 mL, Subcutaneous Injection, Every 8 Weeks ZyPREXA 5 mg oral tablet, 5 mg= 1 tablet, By Mouth, Daily at bedtime Allergies Haldol LMX 4 with Tegaderm Social History Alcohol Use: Never. Substance Abuse Use: Never. Tobacco Use: Never (less than 100 in lifetime). Family History No pertinent family history Lab Results Test Name Test Result Date/Time WBC 8.0 k/mm3 01/17/2023 07:28 EDT RBC 4.00 m/mm3 01/17/2023 07:28 EDT Hgb 11.1 Gm/dL 01/17/2023 07:28 EDT Hct 36.8 % 01/17/2023 07:28 EDT MCV 92.0 femtoliters 01/17/2023 07:28 EDT MCH 27.8 pg 01/17/2023 07:28 EDT MCHC 30.2 g/dL 01/17/2023 07:28 EDT Platelet Count 218 k/mm3 01/17/2023 07:28 EDT Sodium 138 mmol/L 01/17/2023 09:15 EDT Chloride 103 mmol/L 01/17/2023 09:15 EDT Bicarbonate Level 26 mmol/L 01/17/2023 09:15 EDT Anion Gap 9 01/17/2023 09:15 EDT Glucose Level 95 mg/dL 01/17/2023 09:15 EDT BUN 26 mg/dL 01/17/2023 09:15 EDT Creatinine-Blood 0.9 mg/dL 01/17/2023 09:15 EDT Estimated GFR Creatinine 94 ML/MIN/1.73 M2 01/17/2023 09:15 EDT Calcium 8.8 mg/dL 01/17/2023 09:15 EDT * Sandip KAPLAN, Bruce Villalba: PERFORM Event Display: Consultation Note Authored Date: I have reviewed the patient's medical history, findings on examination, diagnosis and treatment plan as documented in the fellow note. Case and its management discussed with fellow ?? Patient underwent EGD with successful removal of foreign body in the esophagus, please refer to procedure note for complete details ?? Will sign off, please call back with any questions . Note * Crystal Pineda DO: PERFORM Event Display: Patient Education Leaflets Authored Date: Swallowed Foreign Body (Adult) ?? [id number] Swallowed Foreign Body (Adult) Indigestible objects (foreign [...] faintness ?? Last Reviewed Date: 2022 ?? 4845-4500 [employer]. All rights reserved. This information is not intended as a substitute for professional medical care. Always follow your healthcare professional's instructions. ?? Patient Care team information Care Team Personnel Name: Sarah Dumont RN Position: [facility] RN Member Role: Primary Care Nurse Name: John Frederick RN Position: [facility] RN Member Role: Primary Care Nurse Name: Minoo Rascon RN Position: [facility] RN Member Role: Primary Care Nurse Name: Anthony Viveros RN Position: [facility] RN Member Role: Primary Care Nurse Name: Galen Xie MD Position: [facility] Physician - Primary Care Member Role: PCP Address: Address: [address] [place], [place] - Name: Charla Galindo RN Position: [facility] RN Member Role: Primary Care Nurse Name: Julia Sumner Position: [facility] RN Member Role: Primary Care Nurse Name: Bessie Gomes RN Position: [facility] RN Member Role: Primary Care Nurse Name: Ashlie Goodman RN Position: [facility] RN Member Role: Primary Care Nurse Name: Danielle Griffith RN Position: [facility] RN Member Role: Primary Care Nurse Name: Aneta Conte RN Position: [facility] RN Member Role: Primary Care Nurse Name: Carmelina Dunn LPN Position: [facility] RN Member Role: Primary Care Nurse Name: Janay Judd RN Position: [facility] RN Member Role: Primary Care Nurse Name: Brit Gracia RN Position: [facility] RN Member Role: Primary Care Nurse Name: Karma Miller RN Position: [facility] RN Member Role: Primary Care Nurse Name: Justin Jeffrey Position: [facility] ED TA [facility] Name: Anabelle Solomon MD Position: [facility] ED Medicine MD Member Role: Admitting Physician Address: Address: [address] [place] [address]- Name: Annalisa Wesley RN Position: [facility] ED RN W/OE and Tasks Name: Shanita Esparza RN Position: [facility] ED RN W/OE and Tasks Member Role: Patient Care Provider Name: Virgilio Curran MD Position: [facility] Resident Member Role: ED Resident Address: Address: [address] [place] [address] [place] [address]- Care Team Related Persons Name: ELIZABETH REES Address: home [address] [place] [address] Name: MELO KUMAR Address: home [address] [place] [address] Name: ROLAND WILLIAM Address: home [address] [address]
--- OUTSIDE RECORDS SUMMARY | 2023-09-23 06:11 | XMS_ITS | Continuity of Care Document ---
Author Organization [facility] ter Address [address] [place] [address]- Care Team Providers Care Propulsion Generator Repairer Name Role Phone Rojas KAPLAN, Asma Primary Care Physician [phone] Encounter [facility] [place](s): 08/30/22 - 08/30/[address] [address]- Encounter Diagnosis Foreign body ingestion(Final) - 08/30/22 Discharge Disposition: A-D/C Home Attending Physician: Etienne Roberto MD Admitting Physician: Etienne Roberto MD Referring Physician: Not on Staff, Referring [...] 10/21/21 15:28:00 EDT, Route to Pharmacy Electronically, [facility]-[id number], Partial fill upon patient request if the prescription is for a schedule... Start Date: 10/21/21 Status: Ordered atenolol 25 mg oral tablet 25 mg, 1, tablet, By Mouth, Daily, # 30 tablet, Refills 0, Tot. Refills 0, Maintenance, 10/21/21 15:28:00 EDT, Route to Pharmacy Electronically, [facility]-[id number], Partial fill upon patient request if the prescription is for a schedul... Start Date: 10/21/21 Status: Ordered Benadryl 25 mg oral capsule [...] 0 Refills, Maintenance, 10/21/21 15:24:00 EDT, Tablet, [facility]-15373, Partial fill upon patient request if the prescription is for aschedule II opioid drug., 1 tablet By Mouth Daily i... Start Date: 10/21/21 Status: Ordered cholecalciferol 2000 intl units oral capsule 1 capsule = 50 mcg, By Mouth, Daily, # 30 capsule, 0 Refills, Maintenance, 10/21/21 15:27:00 EDT, Capsule, [facility]-45369, Partial fill upon patient request if the [...] 10/21/21 15:30:00 EDT, Route to Pharmacy Electronically, [facility]-30365, Partial fill upon patient request if the prescription is for a schedule II... Start Date: 10/21/21 Stop Date: 11/20/21 Status: Ordered fluticasone 50 mcg/inh nasal spray 1 sprays = 50 mcg, Nares, Both, Daily at bedtime, # 16 Gm, 0 Refills, Maintenance, 10/21/21 15:30:00 EDT, Nasal [place], [facility]- 16736, Partial fill upon patient request if the prescription is for a schedule II opioid drug., 1 spray... Start Date: 10/21/21 Status: Ordered folic acid 1 mg oral tablet 1 mg, 1, tablet, By Mouth, Daily, # 30 tablet, Refills 0, Tot. Refills 0, Maintenance, 10/21/21 15:30:00 EDT, Route to Pharmacy Electronically, [facility]-61074, Partial fill upon patient request if the [...] 0 Refills, Maintenance, 10/21/21 15:30:00 EDT, Tablet, [facility]-18103, Partial fill upon patient request if the [...] Tablet, ; Start Date: 12/29/21 Status: Ordered [place]-3 1000 mg oral capsule 1 capsule = 1,000 mg, By Mouth, 3 times a day, # 90 capsule, 0 Refills, Maintenance, 10/21/21 15:27:00 EDT, Capsule, [facility]-68043, Partial fill upon patient request if the [...] Exam Date Time Procedure Performing Provider Status 08/30/22 9:46 PM Neck Soft Tissue John Ramirez; Auth (Verified) Notes: (Neck Soft Tissue) Reason For Exam: Foreign Body RESULT: Neck Soft Tissue Neck Soft Tissue Hx of Present Illness: Ate the 2 steri-strips from surgical site earlier today.; Reason: Foreign Body; Clinical Question(s): Foreign Body Location COMPARISON: 08/13/2022. FINDINGS: No radiopaque foreign body identified. Normal air column of the pharynx and trachea. Unremarkable visualized bones. IMPRESSION: No evidence for radiopaque foreign body. I have personally reviewed the images and I agree with this report. WSN: [id number] Ordering Physician: Claire Reddy Dictated By: Mikey[Radiology] Tangela KAPLAN Dictated Date/Time: 08/30/22 10:01 p Reviewed By: Joshua Alatorre MD Signed By: Joshua Alatorre MD Signed Date/Time: 08/30/22 10:06 pm Transcribed By: ROS Transcribed Date/Time: 08/30/22 9:56 pm * Exam Date Time Procedure Performing Provider Status 08/30/22 9:46 PM Chest 2 Views Frontal and Lat John Ramirez; Auth (Verified) Notes: (Chest 2 Views Frontal and Lat) Reason For Exam: Foreign Body RESULT: Chest 2 Views Frontal and Lat Chest 2 Views Frontal and Lat Hx of Present Illness: Ate the 2 steri-strips from surgical site earier today.; Reason: Foreign Body; Clinical Question(s): Foreign Body COMPARISON: Multiple priors, the most recent 08/13/2022. FINDINGS: LINES AND TUBES: None. LUNGS AND PLEURA: Small lung volumes with bronchovascular crowding. The lateral projection is technically limited. No pleural effusion. No pneumothorax. HEART, MEDIASTINUM AND ROSA MARIA: Heart is normal in size. Normal mediastinal and hilar contour. BONES AND SOFT TISSUES: No acute abnormality. IMPRESSION: No acute abnormality. I have personally reviewed the images and I agree with this report. WSN: [id number] Ordering Physician: Claire Reddy Dictated By: Mikey[Radiology] Tangela KAPLAN Dictated Date/Time: 08/30/22 9:59 pm Reviewed By: Joshua Alatorre MD Signed By: Joshua Alatorre MD Signed Date/Time: 08/30/22 10:04 pm Transcribed By: ROS Transcribed Date/Time: 08/30/22 9:54 pm Vital Signs Most recent to oldest [Reference Range]: 1 2 Height 153 cm (08/30/22 8:22 PM) Oxygen Saturation [94-100 %] 95 % (08/30/22 11:37 PM) 96 % (08/30/22 8:22 PM) Pulse Rate [55-90 bpm] 58 bpm (08/30/22 11:37 PM) 67 bpm (08/30/22 8:22 PM) Blood Pressure [90-138/55-84 mm Hg] 131/ 65mm Hg (08/30/22 11:37 PM) 144/107mm Hg *H* (08/30/22 8:22 PM) Respiratory Rate [16-30 br/min] 18 br/mi n (08/30/22 11:37 PM) 18 br/min (08/30/22 8:22 PM) Temperature [96.8-100.4 DegF] 97.5 DegF (08/30/22 11:37 PM) 97.8 DegF (08/30/22 8:22 PM) Mode of Delivery (Oxygen) Room air (08/30/22 11:37 PM) Room air (08/30/22 8:22 PM) Blood pressure sites Arm, right (08/30/22 11:37 PM) Arm, right (08/30/22 8:22 PM) Temperature Route Oral (08/30/22 11:37 PM) Oral (08/30/22 8:22 PM) Social History Social History Type Response Smoking Status Never (less than 100 in lifetime) entered on: 09/17/20 Sex Note * Claire Reddy MD: PERFORM Event Display: Patient Education Leaflets Authored Date: [id number] Swallowed Foreign Body (Adult) ?? [id number] Swallowed Foreign Body (Adult) Indigestible objects (foreign [...] faintness ?? Last Reviewed Date: 2022 ?? 1205-2090 [employer]. All rights reserved. This information is not intended as a substitute for professional medical care. Always follow your healthcare professional's instructions. ?? Laboratory * [facility] , CIS S: TRANSCRIBE Celi KAPLAN, Joshua: VERIFY Mikey[Radiology] Tangela KAPLAN: SIGN Event Display: Result: Authored Date: [id number] Chest 2 Views Frontal and Lat Hx of Present Illness: Ate the 2 steri-strips from surgical site earier today.; Reason: Foreign Body; Clinical Question(s): Foreign Body COMPARISON: Multiple priors, the most recent 08/13/2022. FINDINGS: LINES AND TUBES: None. LUNGS AND PLEURA: Small lung volumes with bronchovascular crowding. The lateral projection is technically limited. No pleural effusion. No pneumothorax. HEART, MEDIASTINUM AND ROSA MARIA: Heart is normal in size. Normal mediastinal and hilar contour. BONES AND SOFT TISSUES: No acute abnormality. IMPRESSION: No acute abnormality. I have personally reviewed the images and I agree with this report. WSN: [id number] Ordering Physician: Claire Reddy Dictated By: Mikey[Radiology] Tangela KAPLAN Dictated Date/Time: 08/30/22 9:59 pm Reviewed By: Joshua Alatorre MD Signed By: Joshua Alatorre MD Signed Date/Time: 08/30/22 10:04 pm Transcribed By: ROS Transcribed Date/Time: 08/30/22 9:54 pm Radiology * [facility] , CIS S: TRANSCRIBE Joshua Alatorre MD: VERIFY Mikey[Radiology] Tangela KAPLAN: SIGN Event Display: Result: Authored Date: [id number] Neck Soft Tissue Hx of Present Illness: Ate the 2 steri-strips from surgical site earlier today.; Reason: Foreign Body; Clinical Question(s): Foreign Body Location COMPARISON: 08/13/2022. FINDINGS: No radiopaque foreign body identified. Normal air column of the pharynx and trachea. Unremarkable visualized bones. IMPRESSION: No evidence for radiopaque foreign body. I have personally reviewed the images and I agree with this report. WSN: [id number] Ordering Physician: Claire Reddy Dictated By: Mikey[Radiology] Tangela KAPLAN Dictated Date/Time: 08/30/22 10:01 p Reviewed By: Joshua Alatorre MD Signed By: Joshua Alatorre MD Signed Date/Time: 08/30/22 10:06 pm Transcribed By: ROS Transcribed Date/Time: 08/30/22 9:56 pm Patient Care team information Care Team Personnel Name: John Frederick RN Position: S RN Member Role: Primary Care Nurse Name: Minoo Rascon RN Position: S RN Member Role: Primary Care Nurse Name: Anthony Viveros RN Position: S RN Member Role: Primary Care Nurse Name: Galen Xie MD Position: S Physician - Primary Care Member Role: PCP Address: Address: [address] [place], [place] [address] Name: Charla Galindo RN Position: S RN Member Role: Primary Care Nurse Name: Julia Sumner Position: S RN Member Role: Primary Care Nurse Name: Bessie Gomes RN Position: S RN Member Role: Primary Care Nurse Name: Ashlie Goodman RN Position: [facility] ED RN W/OE and Tasks Member Role: Primary Care Nurse Name: Danielle Griffith RN Position: [facility] RN Member Role: Primary Care Nurse Name: Aneta Conte RN Position: [facility] RN Member Role: Primary Care Nurse Name: Carmelina Dunn LPN Position: [facility] RN Member Role: Primary Care Nurse Name: Janay Judd RN Position: [facility] RN Member Role: Primary Care Nurse Name: Brit Gracia RN Position: [facility] RN Member Role: Primary Care Nurse Name: Karma Miller RN Position: [facility] RN Member Role: Primary Care Nurse Name: Etienne Roberto MD Position: [facility] ED Medicine MD Member Role: Admitting Physician Address: Address: [address] [place] [address]- Name: Claire Reddy MD Position: [facility] Resident Member Role: ED Resident Address: Address: [address] [place] [address]- Care Team Related Persons Name: ELIZABETH REES Address: home [address] [place] [address] Name: MELO KUMAR Address: [address] [place] [address] Name: ROLAND WILLIAM Address: [place] [address] [address]
--- OUTSIDE RECORDS SUMMARY | 2023-09-23 06:11 | XMS_ITS | Continuity of Care Document ---
Author Organization [facility] ter Address [address] [place] [address]- Care Team Providers Care Tree Trimmer Name Role Phone Rojas KAPLAN, Asma Primary Care Physician [phone] Encounter [facility] [place] Date(s): 12/02/22 - 12/02/[address] [address]- Encounter Diagnosis Possible foreign body ingestion(Final) - 12/02/22 Discharge Disposition: A-D/C Home Attending Physician: Pietro Mai DO Admitting Physician: Pietro Mai DO Referring Physician: Not on Staff, Referring MD [...] 10/21/21 15:28:00 EDT, Route to Pharmacy Electronically, [facility]-[id number], Partial fill upon patient request if the [...] 0 Refills, Maintenance, 10/21/21 15:24:00 EDT, Tablet, [facility]-20143, Partial fill upon patient request if the prescription is for aschedule II opioid drug., 1 tablet By Mouth Daily i... Start Date: 10/21/21 Status: Ordered cholecalciferol 2000 intl units oral capsule 1 capsule = 50 mcg, By Mouth, Daily, # 30 capsule, 0 Refills, Maintenance, 10/21/21 15:27:00 EDT, Capsule, [facility]-[id number], Partial fill upon patient request if the [...] 10/21/21 15:30:00 EDT, Route to Pharmacy Electronically, [facility]-25932, Partial fill upon patient request if the prescription is for a schedule II... Start Date: 10/21/21 Stop Date: 11/20/21 Status: Ordered fluticasone 50 mcg/inh nasal spray 1 sprays = 50 mcg, Nares, Both, Daily at bedtime, # 16 Gm, 0 Refills, Maintenance, 10/21/21 15:30:00 EDT, Nasal [place], [facility]- [address]309, Partial fill upon patient request if the prescription is for a schedule II opioid drug., 1 spray... Start Date: 10/21/21 Status: Ordered folic acid 1 mg oral tablet 1 mg, 1, tablet, By Mouth, Daily, # 30 tablet, Refills 0, Tot. Refills 0, Maintenance, 10/21/21 15:30:00 EDT, Route to Pharmacy Electronically, [facility]-45884, Partial fill upon patient request if the [...] 0 Refills, Maintenance, 10/21/21 15:30:00 EDT, Tablet, [facility]-44724, Partial fill upon patient request if the [...] Tablet, ; Start Date: 12/29/21 Status: Ordered [place]-3 1000 mg oral capsule 1 capsule = 1,000 mg, By Mouth, 3 times a day, # 90 capsule, 0 Refills, Maintenance, 10/21/21 15:27:00 EDT, Capsule, [facility]-94885, Partial fill upon patient request if the [...] List Condition Confirmation Course Effective Dates Status [facility] Anxiety Confirmed Active Autism spectrum Confirmed Active Constipation Confirmed Active Crohn disease Confirmed Active Foreign body in hypopharynx Confirmed Active Pica Confirmed Active Prader-Willi syndrome Confirmed Active Prader-Willi syndrome Confirmed Active Severe obesity Confirmed Active Results Radiology Reports * Exam Date Time Procedure Performing Provider Status 12/02/22 11:59 AM Chest 2 Views Frontal and Lat Arturo Roberts; Auth (Verified) Notes: (Chest 2 Views Frontal and Lat) Reason For Exam: Foreign Body RESULT: Chest 2 Views Frontal and Lat XR Abdomen AP, Neck Soft Tissue, Chest 2 Views Frontal and Lat 1 view INDICATION/CLINICAL QUESTION: Hx of Present Illness: swallowed a FB. per pt - something small, white and hard (pt has pica); Reason: Foreign Body; Clinical Question(s): Foreign Body COMPARISON: October 19, 2022 FINDINGS: No radiopaque foreign body. Patent nasopharynx. Normal retropharyngeal soft tissues. Allowing for low lung volumes, the lungs are symmetrically inflated and clear. No pneumothorax. No pleural effusion.. Normal bowel gas pattern. No evidence of obstruction. No evidence of pneumoperitoneum. No organomegaly, masses or calcifications. Thoracolumbar levocurvature. IMPRESSION: No radiopaque foreign body. WSN: [id number] Ordering Physician: Pietro Mai Dictated By: Man Rockwell MD Dictated Date/Time: 12/02/22 12:08 p Reviewed By: Man Rockwell MD Signed By: Man Rockwell MD Signed Date/Time: 12/02/22 12:08 pm Transcribed By: ROS Transcribed Date/Time: 12/02/22 12:04 pm * Exam Date Time Procedure Performing Provider Status 12/02/22 11:59 AM Neck Soft Tissue RobertsArturo charles; Auth (Verified) Notes: (Neck Soft Tissue) Reason For Exam: Pain RESULT: Neck Soft Tissue XR Abdomen AP, Neck Soft Tissue, Chest 2 Views Frontal and Lat 1 view INDICATION/CLINICAL QUESTION: Hx of Present Illness: swallowed a FB. per pt - something small, white and hard (pt has pica); Reason: Foreign Body; Clinical Question(s): Foreign Body COMPARISON: October 19, 2022 FINDINGS: No radiopaque foreign body. Patent nasopharynx. Normal retropharyngeal soft tissues. Allowing for low lung volumes, the lungs are symmetrically inflated and clear. No pneumothorax. No pleural effusion.. Normal bowel gas pattern. No evidence of obstruction. No evidence of pneumoperitoneum. No organomegaly, masses or calcifications. Thoracolumbar levocurvature. IMPRESSION: No radiopaque foreign body. WSN: [id number] Ordering Physician: Pietro Mai Dictated By: Man Rockwell MD Dictated Date/Time: 12/02/22 12:08 p Reviewed By: Man Rockwell MD Signed By: Man Rockwell MD Signed Date/Time: 12/02/22 12:08 pm Transcribed By: CSTrung Transcribed Date/Time: 12/02/22 12:04 pm * Exam Date Time Procedure Performing Provider Status 12/02/22 11:59 AM Abdomen AP Arturo Roberts; Auth (Skye ified) Notes: (Abdomen AP) Reason For Exam: Foreign Body RESULT: XR Abdomen AP XR Abdomen AP, Neck Soft Tissue, Chest 2 Views Frontal and Lat 1 view INDICATION/CLINICAL QUESTION: Hx of Present Illness: swallowed a FB. per pt - something small, white and hard (pt has pica); Reason: Foreign Body; Clinical Question(s): Foreign Body COMPARISON: October 19, 2022 FINDINGS: No radiopaque foreign body. Patent nasopharynx. Normal retropharyngeal soft tissues. Allowing for low lung volumes, the lungs are symmetrically inflated and clear. No pneumothorax. No pleural effusion.. Normal bowel gas pattern. No evidence of obstruction. No evidence of pneumoperitoneum. No organomegaly, masses or calcifications. Thoracolumbar levocurvature. IMPRESSION: No radiopaque foreign body. WSN: [id number] Ordering Physician: Pietro Mai Dictated By: Man Rockwell MD Dictated Date/Time: 12/02/22 12:08 p Reviewed By: Man Rockwell MD Signed By: Man Rockwell MD Signed Date/Time: 12/02/22 12:08 pm Transcribed By: ROS Transcribed Date/Time: 12/02/22 12:04 pm Vital Signs Most recent to oldest [Reference Range]: 1 2 Height 153 cm (12/02/22 9:02 AM) Oxygen Saturation [94-100 %] 98 % (12/02/22 12:01 PM) Pulse Rate [55-90 bpm] 62 bpm (12/02/22 12:01 PM) 83 bpm (12/02/22 9:02 AM) Blood Pressure [90-138/55-84 mm Hg] 129/ 80mm Hg (12/02/22 12:01 PM) 134/76mm Hg (12/02/22 9:02 AM) Mode of Delivery (Oxygen) Room air (12/02/22 12:01 PM) Blood pressure sites Arm, left (12/02/22 9:02 AM) Dry Weight 104 kg (12/02/22 9:02 AM) Dry Weight Obtained Via Patient/family s tated (12/02/22 9:02 AM) Social History Social History Type Response Smoking Status Never (less than 100 in lifetime) entered on: 09/17/20 Sex Female Patient Care team information Care Team Personnel Name: John Frederick RN Position: [facility] RN Member Role: Primary Care Nurse Name: Minoo Rascon RN Position: [facility] RN Member Role: Primary Care Nurse Name: Anthony Viveros RN Position: [facility] RN Member Role: Primary Care Nurse Name: Galen Xie MD Position: [facility] Physician - Primary Care Member Role: PCP Address: Address: [address] [place], [place] - [place] Name: Charla Galindo RN Position: [facility] RN Member Role: Primary Care Nurse Name: Julia Sumner Position: [facility] RN Member Role: Primary Care Nurse Name: Bessie Gomes RN Position: [facility] RN Member Role: Primary Care Nurse Name: Ashlie Goodman RN Position: [facility] RN Member Role: Primary Care Nurse Name: Danielle Griffith RN Position: [facility] RN Member Role: Primary Care Nurse Name: Aneta Conte RN Position: [facility] RN Member Role: Primary Care Nurse Name: Carmelina Dunn LPN Position: [facility] RN Member Role: Primary Care Nurse Name: Janay Judd RN Position: [facility] RN Member Role: Primary Care Nurse Name: Brit Gracia RN Position: [facility] RN Member Role: Primary Care Nurse Name: Karma Miller RN Position: [facility] RN Member Role: Primary Care Nurse Name: Sheila Mcrae RN Position: [facility] ED RN W/OE and Tasks Member Role: Patient Care Provider Name: Dawit Santos Position: [facility] Associate Professional Member Role: ED Physician Photographic Processor Address: Address: [address] [place] [address] [place] [address]- [place] Name: Pietro Mai DO Position: [facility] Resident Member Role: Admitting Physician Address: Address: [address] [place] [address] Dept [place] [address]- [place] Name: Celina Johnson Position: [facility] ED [facility] Care Team Related Persons Name: ELIZABETH REES Address: [address] [place] [address] Name: MELO KUMAR Address: [address] [place] [address] Name: ROLAND WILLIAM Address: [address] [address]
--- OUTSIDE RECORDS SUMMARY | 2023-09-23 06:11 | XMS_ITS | Continuity of Care Document ---
Author Organization [facility] ter Address [address] [place] [id number] Care Team Providers Care Alkylation Operator Name Role Phone Rojas KAPLAN, Asma Primary Care Physician [phone] Encounter [facility] [place] Date(s): 06/08/22 - 06/09/[address] [address] Discharge Disposition: A-D/C Home Attending Physician: Yane RAUSCH MD, Adin T Admitting Physician: Yane RAUSCH MD, Adin T Referring Physician: Not on Staff, Referring MD [...] 10/21/21 15:28:00 EDT, Route to Pharmacy Electronically, [facility]-[id number], Partial fill upon patient request if the prescription is for a schedule... Start Date: 10/21/21 Status: Ordered atenolol 25 mg oral tablet 25 mg, 1, tablet, By Mouth, Daily, # 30 tablet, Refills 0, Tot. Refills 0, Maintenance, 10/21/21 15:28:00 EDT, Route to Pharmacy Electronically, [facility]-[id number], Partial fill upon patient request if the prescription is for a schedul... Start Date: 10/21/21 Status: Ordered calcium (as citrate)-vitamin D 200 mg-250 intl units oral tablet 1 tablet, By Mouth, Daily in AM, # 30 tablet, 0 Refills, Maintenance, 10/21/21 15:24:00 EDT, Tablet, [facility]86296, Partial fill upon patient request if the prescription is for aschedule II opioid drug., 1 tablet By Mouth Daily i... Start Date: 10/21/21 Status: Ordered cholecalciferol 2000 intl units oral capsule 1 capsule = 50 mcg, By Mouth, Daily, # 30 capsule, 0 Refills, Maintenance, 10/21/21 15:27:00 EDT, Capsule, [facility]-[id number], Partial fill upon patient request if the [...] 10/21/21 15:30:00 EDT, Route to Pharmacy Electronically, [facility]-10141, Partial fill upon patient request if the prescription is for a schedule II... Start Date: 10/21/21 Stop Date: 11/20/21 Status: Ordered fluticasone 50 mcg/inh nasal spray 1 sprays = 50 mcg, Nares, Both, Daily at bedtime, # 16 Gm, 0 Refills, Maintenance, 10/21/21 15:30:00 EDT, Nasal Temple, [facility]- 81295, Partial fill upon patient request if the prescription is for a schedule II opioid drug., 1 spray... Start Date: 10/21/21 Status: Ordered folic acid 1 mg oral tablet 1 mg, 1, tablet, By Mouth, Daily, # 30 tablet, Refills 0, Tot. Refills 0, Maintenance, 10/21/21 15:30:00 EDT, Route to Pharmacy Electronically, [facility]-74448, Partial fill upon patient request if the [...] 0 Refills, Maintenance, 10/21/21 15:30:00 EDT, Tablet, [facility]-50398, Partial fill upon patient request if the [...] Tablet, ; Start Date: 12/29/21 Status: Ordered [place]-3 1000 mg oral capsule 1 capsule = 1,000 mg, By Mouth, 3 times a day, # 90 capsule, 0 Refills, Maintenance, 10/21/21 15:27:00 EDT, Capsule, [facility]-60449, Partial fill upon patient request if the [...] Exam Date Time Procedure Performing Provider Status 06/08/22 1:20 PM Neck Soft Tissue Natalie Colon ; Auth (Verified) Notes: (Neck Soft Tissue) Reason For Exam: ingested styrofoam;Foreign Body RESULT: Neck Soft Tissue Neck Soft Tissue Hx of Present Illness: Took a bite out of a styrofoam plate. States she feels it in her throat; Reason: Foreign Body; ingested styrofoam; Clinical Question(s): Other:; FB COMPARISON: None FINDINGS: Patent nasopharynx. No abnormal adenoidal enlargement. Normal retropharyngeal and retrotracheal soft tissues. Normal airway. Normal bones. IMPRESSION: 1. No abnormality seen. 2. However Styrofoam would likely not be detectable on x-ray examination in this exam should therefore not be used to exclude the possibility of a Styrofoam foreign body. WSN: [id number] Ordering Physician: Simi Armando Dictated By: Cameron Lux MD Dictated Date/Time: 06/08/22 1:32 pm Reviewed By: Cameron Lux MD Signed By: Cameron Lux MD Signed Date/Time: 06/08/22 1:32 pm Transcribed By: ROS Transcribed Date/Time: 06/08/22 1:31 pm * Exam Date Time Procedure Performing Provider Status 06/08/22 1:20 PM Chest 2 Views Frontal and Lat Natalie Colno; Auth (Verified) Notes: (Chest 2 Views Frontal and Lat) Reason For Exam: ingested styrofoam;Other: RESULT: Chest 2 Views Frontal and Lat Chest 2 Views Frontal and Lat INDICATION/CLINICAL QUESTION: Hx of Present Illness: Took a bite out of a styrofoam plate. States she feels it in her throat; Reason: Other:; ingested styrofoam; Clinical Question(s): Other:; FB / Other: TECHNIQUE: Frontal and lateral views of the chest. COMPARISON: 05/09/2022. FINDINGS: LINES AND TUBES: None. LUNGS AND PLEURA: RIGHT CHEST: The right lung is clear and there is no right effusion. LEFT CHEST: The left lung is clear and there is no left effusion. HEART, MEDIASTINUM AND JESSICA: The heart is of normal size. The mediastinum and jessica are normal. BONES AND SOFT TISSUES: No acute bony abnormality. Opaque foreign body seen in the airways. IMPRESSION: 1. No active disease in chest. 2. No opaque foreign body is seen. However, I would not expect that styrofoam would be detectable by x-ray. WSN: [id number] Ordering Physician: Simi Armando Dictated By: Cameron Lux MD Dictated Date/Time: 06/08/22 1:29 pm Reviewed By: Cameron Lux MD Signed By: Cameron Lux MD Signed Date/Time: 06/08/22 1:29 pm Transcribed By: ROS Transcribed Date/Time: 06/08/22 1:27 pm Vital Signs Most recent to oldest [Reference Range]: 1 2 3 Height 153 cm (06/09/22 8:04 AM) 153 cm (06/09/22 7:46 AM) 153 cm (06/08/22 11:29 PM) Weight 106.6 kg (06/08/22 11:29 PM) Oxygen Saturation [94-100 %] 92 % *L* (06/09/22 8:04 AM) 92 % *L* (06/09/22 7:46 AM) 90 % 1 *L* (06/08/22 11:28 PM) Pulse Rate [55-90 bpm] 89 bpm (06/09/22 8:04 AM) 79 bpm (06/09/22 7:46 AM) 75 bpm (06/08/22 11:29 PM) Body Mass Index [18.5-24.99 kg/m2] 45.54 kg/m2 *>HHI* (06/08/22 11:29 PM) Blood Pressure [90-138/55-84 mm Hg] 117/70mm Hg (06/09/22 8:04 AM) 111/67mm Hg (06/09/22 7:46 AM) 129/81mm Hg (06/08/22 11:29 PM) Respiratory Rate [16-30 br/min] 20 br/min (06/09/22 8:04 AM) 17 br/min (06/09/22 7:46 AM) 18 br/min (06/08/22 11:29 PM) Temperature [96.8-100.4 DegF] 98.0 DegF (06/09/22 8:04 AM) 97.9 DegF (06/09/22 7:46 AM) 97.8 DegF (06/08/22 11:29 PM) Liters per Minute 2 L/min (06/08/22 9:00 PM) 2 L/min (06/08/22 8:30 PM) 2 L/min (06/08/22 8:00 PM) Mode of Delivery (Oxygen) Room air (06/09/22 8:04 AM) Room air (06/09/22 7:46 AM) Room air (06/08/22 11:28 PM) Blood pressure sites Arm, left (06/09/22 8:04 AM) Arm, right (06/09/22 7:46 AM) Arm, left (06/08/22 11:29 PM) Temperature Route Oral (06/09/22 8:04 AM) Oral (06/09/22 7:46 AM) Oral (06/08/22 11:29 PM) Dry Weight 106.6 kg (06/08/22 11:29 PM) 1Result Comment: AMADOR Dumont notified Social History Social History Type Response Smoking Status Never (less than 100 in lifetime) entered on: 09/17/20 Sex Hospital Progress note * Hayley West RN: PERFORM, SIGN, VERIFY Event Display: Progress Note Hospital Authored Date: [id number] Patient: ADILENE MATHEWS Age: 27 years Sex: Female : 1995 Associated Diagnoses: None Author: Jenna ENGLISH, Hayley Findings Narrative/Incidental Patient is awake and alert. arrived via w/c from S1 to S3 discharge unit. Project Planner from group homearrived to unit with patient. IV d/c'd and plan for discharge to half-way today at 10:30 AM. Regular diet ordered for patient, per patient request. Ambulates steady on her feet around the unit. Voiding Qs clear yellow urine in the bathroom. Patient is aware of and agrees with plan for discharge to half-way today. Patient requesting Tylenol for headache. medications given as charted. . Discharge Information Case Management Discharge Plan : Case Management Discharge Plan Data 06/09/2022 8:09 EDT Discharge Level of Care at Discharge Home/[facility] * Aysha Conrad DO: PERFORM Event Display: Progress Note Hospital Authored Date: [id number] Patient: ??ADILENE MATHEWS ? Age:??27 Years?Sex:??Female?:??1995?? Subjective Adilene stayed overnight for observation after having desaturations down to 85% post procedurally, but would appropriately have an O2 saturation up to 99% on 2L NC overnight.?? She was on room air this morning and denies any difficulty breathing. She denied any shortness of breath, chest pain, nausea, vomiting or abdominal pain. She was happy to hear that she would be going back to her half-way this morning. Review of Systems As per HPI, otherwise negative. Physical Exam Vitals & Measurements T:??97.8?F ?? HR:??75(Monitored)?? OH:??75?? RR:??18?? BP:??129/81?? SpO2:??90%?? HT:??153??cm?? WT:??106.6??kg?? BMI:??45.54?? Assessment/Plan Adilene Mathews is a 27 year old female with PMHx significant for Prader-Willi syndrome, autism, pica, autism, who presented to the ED from her half-way on 06/08/22 for concern of a foreign body ingestion, with concern for airway obstruction. The patient was hemodynamically stable in the ED and had been saturating 98% on room air. The patient had a chest x ray and a soft tissue x- ray, but given that Styrofoam is not radio-opaque, it is unlikely to be visualized by x-ray. ?? Given the emergency of the situation, the patient was directly brought to the operating theatre chad bronchoscopy was performed, which revealed no obvious obstruction. Most likely, the styrofoam piece went down the esophagus and into the stomach. ?? The patient was extubated and transferred to the PACU in stable condition. No further surgical interventions are indicated at this time.? Adilene stayed overnight for observation after having desaturations down to 85% post procedurally, but would appropriately have an O2 saturation up to 99% on 2L NC overnight.?? She was on room air this morning and denies any difficulty breathing. She denied any shortness of breath, chest pain,nausea, vomiting or abdominal pain. She was happy to hear that she would be going back to her half-way this morning. ?? PLAN: -No surgical intervention -Dispo back to her half-way ?? Case discussed with Dr. Saravia,??Trauma Surgeon pharmacy operations coordinator. Please page Trauma Surgery with any questions or concerns [phone]. Intake and Output Intake and Output Results?? This visit (24 hour periods starting at 07:00 EDT)? 06/08/22 *?? 06/07/22?? 06/06/22 ?? Total Summary?Intake mL?? 250?? --?? --?Output mL?? --?? --?? --?Fluid Balance ?? 250?? --?? --?? Intake (1)?Oral Fluids mL?? 250?? --?? --?Total?? 250?? --?? --?? Output (0)? Counts (1)?Oral Fluids mL?? 250?? --?? --? * This column has not completed the indicated time period.?? Indicates a 23 hour day.?? Labs Last 24 Hours No qualifying data available. Lab Results VIROLOGY COVID-19 by RT-PCR NEGATIVE ()?? 06/08/2022 15:00 ?? Diagnostics RESULT: Chest 2 Views Frontal and Lat Chest 2 Views Frontal and Lat ?? INDICATION/CLINICAL QUESTION: Hx of Present Illness: Took a bite out of a styrofoam plate. States she feels it in her throat; Reason: Other:; ingested styrofoam; Clinical Question(s): Other:; FB / Other:? TECHNIQUE: Frontal and lateral views of the chest. ?? COMPARISON: 05/09/2022. ?? FINDINGS: ?? LINES AND TUBES: None. ?? LUNGS AND PLEURA: ?? RIGHT CHEST: The right lung is clear and there is no right effusion. ?? LEFT CHEST: The left lung is clear and there is no left effusion. ?? HEART, MEDIASTINUM AND JESSICA:?? The heart is of normal size.?? The mediastinum and jessica are normal.? BONES AND SOFT TISSUES:?? No acute bony abnormality. Opaque foreign body seen in the airways. ?? IMPRESSION:?? 1. No active disease in chest. ?? 2. No opaque foreign body is seen. However, I would not expect that styrofoam would be detectable by x-ray. WSN: [id number] ? Ordering Physician: Simi Armando ?? Signature Line Dictated By: ?Maci KAPLAN, Cameron Rico Dictated Date/Time: ?06/08/22 1:29pm ?? (06/08/2022 13:20 EDT Neck Soft Tissue) RESULT: Neck Soft Tissue Neck Soft Tissue? Hx of Present Illness: Took a bite out of a styrofoam plate. States she feels it in her throat; Reason: Foreign Body; ingested styrofoam; Clinical Question(s): Other:; FB ?? COMPARISON: None ?? FINDINGS:? Patent nasopharynx. No abnormal adenoidal enlargement.? Normal retropharyngeal and retrotracheal soft tissues. Normal airway. ?? Normal bones. ?? IMPRESSION:? 1. No abnormality seen. ?? 2. However Styrofoam would likely not be detectable on x-ray examination in this exam should therefore not be used to exclude the possibility of a Styrofoam foreign body. ?? WSN: [id number] ?? Ordering Physician: Simi Armando ?? Signature Line Dictated By: ?Maci KAPLAN, Cameron Rico Dictated Date/Time: ?06/08/22 1:32pm * Jean Saravia MD: PERFORM Event Display: Progress Note Hospital Authored Date: I have seen and evaluated this patient on the above documented date. I have discussed the case and its management with the resident team and KYMBERLY as documented in the progress note.? -Clinically stable. ?? -Plan - as noted below -Discharge planning to half-way. -F/u PCP. ? RA * Julia Sumner: PERFORM, VERIFY, SIGN Event Display: Progress Note Hospital Authored Date: Patient: ADILENE MATHEWS Age: 27 years Sex: Female : 1995 Associated Diagnoses: None Author: Julia Sumner Findings Evaluation Patient alert and oriented x 4, accompanied by private caregiver from half-way as constant rn rehab. Ls CTA, denied sob, even respiratory rate. No respiratory distress. Patient requesting regular meal intake despite clear liquid order. Educated patient to adhere to diet orders. No edema noted to blle, possitive pedal pulses. Skin intact. Call neri within reach, continue to monitor and assess.. Note * Hayley West RN: PERFORM Event Display: Discharge/Transfer Note Hospital Authored Date: [id number] Nursing Discharge Note Entered On: 06/09/2022 10:38 EDT Performed On: 06/09/2022 10:38 EDT by Hayley West RN Nursing Discharge Note 2 Discharge Time : 06/09/2022 10:38 EDT Discharge Level of Care at Discharge : Home/[facility] Patient Left Unit Via : Ambulance Patient Accompanied Off Unit with : Ambulance/Chair Van Personnel Handover Given to Transport Personnel : Yes DC Instructions Provided & Signed by Pt : Yes Patient Understands D/C Instructions : Yes Verbalized Understanding of D/C Plan By : Patient, Caregiver Patient Instructions Discharge Signed : Yes Did Pt have Specialty Bed or Wound Vac : No Hayley West RN - 06/09/2022 10:38 EDT * Rani KAPLAN, Jean: SIGN Rani KAPLAN, Jean: SIGN, MODIFY Rani KAPLAN, Jean: MODIFY, MODIFY, SIGN Aysha Conrad DO: PERFORM, SIGN [place] GLASS, Aysha: SIGN, VERIFY Aysha Conrad DO: VERIFY Event Display: Discharge/Transfer Note Hospital Authored Date: [id number] Patient: ADILENE MATHEWS Age: 27 years Sex: Female : 1995 Associated Diagnoses: None Author: Aysha Conrad DO Discharge Information Admission Date: 06/08/2022 Principal Discharge Diagnosis General medical: Present on admission - yes. Medications MEDICATION LIST (Selected) Inpatient Medications Ordered Bolus D5%/LR 500mL (PACU ONLY) 500 mL: 500 mL, Infusion, IV Infusion, Once for 2 doses/times, in PACU ONLY, Infuse over 15 minutes, May repeat Bolus x1 15 min later, PRN for Other Persistent PostOp Nausea & Vomiting, Routine, 06/08/22 15:57:00 EDT DiphenhydrAMINE Inj (PACU ONLY): 12.5 mg, Injection, IV Push Slowly, Once, PRN for Itch, Nausea & Vomiting, Give if patient is NPO, Routine, 06/08/22 16:27:00 EDT nalOXONE Inj: 0.04 mg, Injection, IV Push, Every 5 minutes, Dilute in 10cc NS, PRN for Other, Respiratory Rate less than 8 or for somnolence/excessive sedation. Repeat until Respiratory Rate is greater than 15 and patient is more alert., Routine, 06/08/22 16:27:00 EDT... Completed Acetaminophen IVPB: 1,000 mg, Injection, IVPB, Once, (Infuse over 15 minutes), STAT, 02/23/22 12:34:00 EST, Stop date 02/23/22 12:34:00 EST Acetaminophen Tablet: 650 mg, Tablet, By Mouth, Once, STAT, 11/11/21 7:56:00 EDT, Stop date 11/11/21 7:56:00 EDT Versed Inj: 1 mg, Injection, IV Push, Once, Routine, 12/03/21 12:00:00 EDT, Stop date 12/03/21 12:00:00 EDT Discontinued ARIPiprazole 5 mg oral tablet: 5 mg, Tablet, By Mouth, Daily, Routine, 12/04/21 14:35:00 EDT Acetaminophen Tablet: 650 mg, Tablet, By Mouth, Every 4 hours, PRN for Pain , Mild, Temperature Greater than 100.5, Routine, 12/03/21 22:46:00 EDT Acetaminophen Tablet: 650 mg, Tablet, By Mouth, Every 4 hours, PRN for Pain , Mild, Temperature Greater than 100.5, Routine, 02/07/22 4:30:00 EST Acetaminophen Tablet: 650 mg, Tablet, By Mouth, Every 8 hours, PRN for Pain , Moderate, STAT, 11/29/21 0:02:00 EDT Calamine Topical: 1 application, Lotion, Topically, Apply to Other : Left foot, left ankle, left hand, right arm, 2 times a day, STAT, 11/28/21 21:50:00 EDT Docusate/Senna Tablet: 1 tablet, Tablet, By Mouth, 2 times a day, PRN for Constipation, Routine, 12/03/21 22:46:00 EDT Docusate/Senna Tablet: 1 tablet, Tablet, By Mouth, 2 times a day, PRN for Constipation, Routine, 02/07/22 4:30:00 EST Enoxaparin Inj: 40 mg, Injection, Subcutaneous Injection, Every 24 hours, Routine, 11/18/21 8:00:00EDT Etomidate Inj: 30 mg, Injection, IV Push Slowly, Once, (Pedi), STAT, 01/06/22 22:02:00 EDT, Stop date 01/06/22 22:02:00 EDT FENTanyl Inj: 25 mcg, Injection, IV Push Slowly, Every 5 minutes for 8 doses/times, in PACU ONLY, Hold for: RR less than 8 or over-sedation, PRN for Pain , Moderate, Repeat until Pain Score is less than or equal to 2, Routine, 11/18/21 7:54:00 EDT, Stop date Limite... FLUoxetine 20 mg oral capsule: 20 mg, Capsule, By Mouth, Daily in AM, Routine, 12/05/21 9:00:00 EDT Haldol LACTATE Inj: 1 mg, Injection, IV Push Slowly, Once, PRN for Nausea & Vomiting, in PACU ONLY, 15 minutes after Zofran or as 1st choice if Zofran given intraoperatively, Routine, 11/18/21 7:54:00 EDT Haloperidol LACTATE Inj (PACU ONLY): 1 mg, Injection, IV Push, Once, PRN for Nausea & Vomiting,Routine, 06/08/22 16:27:00 EDT Ibuprofen Tablet: 400 mg, Tablet, By Mouth, Every 8 hours, PRN for Pain , Moderate, STAT, 11/29/21 0:02:00 EDT LORazepam Tablet: 1 mg, Tablet, By Mouth, Every 8 hours, PRN for Anxiety, STAT, 11/29/21 0:02:00 EDT LR 1,000 mL: 1,000 mL, Infusion, IV Infusion, 1,000 mL, 100 mL/hr, Infuse over 10 hr, Continue until D/C'd Yes, Routine, 11/18/21 7:34:00 EDT, 1.93, m2 LR 1,000 mL: 1,000 mL, Infusion, IV Infusion, 1,000 mL, 100 mL/hr, Infuse over 10 hr, Insert #18 Colt larger, Continue until D/C'd Unless duration specified, Routine, 02/23/22 15:30:00 EST, 2, m2 LR 1,000 mL: 1,000 mL, Infusion, IV Infusion, 1,000 mL, 30 mL/hr, Infuse over 33.3 hr, Continue until D/C'd Unless duration specified, Routine, 11/18/21 7:54:00 EDT, 1.93, m2 LR 1,000 mL: 1,000 mL, Infusion, IV Infusion, 1,000 mL, 50 mL/hr, Infuse over 20 hr, Continue untilD/C'd Unless duration specified, Routine, 02/07/22 15:28:00 EST, 1.99, m2 LR 1,000 mL: 1,000 mL, Infusion, IV Infusion, 1,000 mL, 75 mL/hr, Infuse over 13.3 hr, Continue until D/C'd Unless duration specified, Routine, 02/07/22 8:25:00 EST, 1.99, m2 Lidocaine 4% Inj for Nebulization: 5 mL, Inhalation Solution, Inhalation, Once, Using the [id number] Laryngo-Tracheal Atomizer, apply 2 mL to nasopharynx and 3 mL to oropharynx, STAT, 01/06/22 22:02:00 EDT, Stop date 01/06/22 22:02:00 EDT Maalox Plus Liquid: 30 mL, Suspension, By Mouth, Every 8 hours, PRN for Indigestion, STAT, :02:00 EDT Melatonin Tablet: 3 mg, Tablet, By Mouth, Daily at bedtime, PRN for Insomnia, Routine, 12/03/21 22:46:00 EDT Melatonin Tablet: 3 mg, Tablet, By Mouth, Daily at bedtime, PRN for Insomnia, Routine, 02/07/22 4:30:00 EST Melatonin Tablet: 9 mg, Tablet, By Mouth, Daily at bedtime, PRN for Sleep, Routine, 11/29/21 0:32:00 EDT Mercaptopurine Tablet: 50 mg, Tablet, By Mouth, Daily at bedtime, Routine, 12/04/21 21:00:00 EDT MiraLax Powder: 17 Gm, Powder, By Mouth, Daily for 14 days, Dissolve in 8 ounces of water., PRN forConstipation, Routine, 12/03/21 22:46:00 EDT, Stop date 12/17/21 22:45:00 EDT NaCL 0.9% Flush: 3 mL, Injection, IV Push, Every 8 hours, PRN for Line/Tube Patency, Routine, 12/03/21 22:46:00 EDT NaCL 0.9% Flush: 3 mL, Injection, IV Push, Every 8 hours, PRN for Line/Tube Patency, Routine, 02/07/22 4:30:00 EST NaCL 0.9% Flush: 3 mL, Injection, IV Push, Every 8 hours, Routine, 12/03/21 23:00:00 EDT NaCL 0.9% Flush: 3 mL, Injection, IV Push, Every 8 hours, Routine, 02/07/22 5:00:00 EST OxyCODONE IR Tablet: 5 mg, Tablet, By Mouth, Every 4 hours, in PACU ONLY, if patient can tolerate PO, PRN for Pain , Mild, Routine, 11/18/21 7:54:00 EDT Robitussin DM Liquid: 10 mL, Syrup, By Mouth, Every 4 hours, PRN for Cough, Routine, 12/03/21 22:46:00 EDT Simethicone Tablet: 80 mg, Chew Tablet, Chew, 3 times a day, PRN for Gas, Routine, 12/03/21 22:46:00 EDT Simethicone Tablet: 80 mg, Chew Tablet, Chew, 3 times a day, PRN for Gas, Routine, 02/07/22 4:30:00EST Sugammadex Inj: 1,600 mg, Injection, IV Push Slowly, Once, Routine, 01/06/22 23:00:00 EDT, Stop date 01/06/22 23:00:00 EDT Tylenol 325 mg oral tablet: 650 mg, Tablet, By Mouth, Every 4 hours, PRN for Pain , Mild, Routine, 11/18/21 7:31:00 EDT Zemuron Inj: 100 mg, Injection, IV Push, Once, STAT, 01/06/22 22:02:00 EDT, Stop date 01/06/22 22:02:00 EDT atenolol 25 mg oral tablet: 25 mg, Tablet, By Mouth, Daily, Routine, 12/04/21 14:35:00 EDT folic acid 1 mg oral tablet: 1 mg, Tablet, By Mouth, Daily, Routine, 12/04/21 14:35:00 EDT Prescriptions Prescribed ARIPiprazole 5 mg oral tablet: 5 mg, 1, tablet, By Mouth, Daily, # 30 tablet, Refills 0, Tot. Refills 0, Maintenance, 10/21/21 15:28:00 EDT, Route to Pharmacy Electronically, [facility]-[id number], Partial fill upon patient request if the prescription is for a schedule... FLUoxetine 20 mg oral capsule: 20 mg, By Mouth, Daily in AM, # 30 capsule, Refills 0, Tot. Refills 0, Maintenance, 10/21/21 15:30:00 EDT, Route to Pharmacy Electronically, [facility], Partial fill upon patient request if the prescription is for a schedule II... [place]-3 1000 mg oral capsule: 1 capsule = 1,000 mg, By Mouth, 3 times a day, # 90 capsule, 0 Refills, Maintenance, 10/21/21 15:27:00 EDT, Capsule, [facility]74957, Partial fill upon patient request if the prescription is for a schedule II opioid drug., 152.4, cm... atenolol 25 mg oral tablet: 25 mg, 1, tablet, By Mouth, Daily, # 30 tablet, Refills 0, Tot. Refills0, Maintenance, 10/21/21 15:28:00 EDT, Route to Pharmacy Electronically, [id number], Partial fill upon patient request if the prescription is for a schedul... calcium (as citrate)-vitamin D 200 mg-250 intl units oral tablet: 1 tablet, By Mouth, Daily in AM, # 30 tablet, 0 Refills, Maintenance, 10/21/21 15:24:00 EDT, Tablet, [facility]30758, Partial fill upon patient request if the prescription is for a schedule II opioid drug., 1 tablet By Mouth Daily i... cholecalciferol 2000 intl units oral capsule: 1 capsule = 50 mcg, By Mouth, Daily, # 30 capsule, 0 Refills, Maintenance, 10/21/21 15:27:00 EDT, Capsule, [facility]30217, Partial fill upon patient request if the prescription is for a schedule II opioid drug., 152.4, cm, 10/21/21... fluticasone 50 mcg/inh nasal spray: 1 sprays = 50 mcg, Nares, Both, Daily at bedtime, # 16 Gm, 0 Refills, Maintenance, 10/21/21 15:30:00 EDT, Nasal Temple, [facility]-[id number], Partial fill upon patient request if the prescription is for a schedule II opioid drug., 1 spray... folic acid 1 mg oral tablet: 1 mg, 1, tablet, By Mouth, Daily, # 30 tablet, Refills 0, Tot. Refills0, Maintenance, 10/21/21 15:30:00 EDT, Route to Pharmacy Electronically, [place] [address], Partial fill upon patient request if the prescription is for a schedule... mercaptopurine 50 mg oral tablet: 1 tablet = 50 mg, By Mouth, Daily, # 30 tablet, 0 Refills, Maintenance, 10/21/21 15:30:00 EDT, Tablet, [place] [address], Partial fill upon patient request if the prescription is for a schedule II opioid drug., 152.4, cm, 10/21/21 11:... Completed Caladryl Clear 1%-0.1% topical lotion: See Instructions, Topically 2 times a day, # 118.3 mL, 0 Refills, Acute 12/05/21 22:00:00 EDT, 11/28/21 21:48:00 EDT, [place] [address], Partial fill upon patient request if the prescription is for a schedule II opioid drug., Topicall... Cavilon Durable Barrier topical cream: 1 application, Topically, 2 times a day, PRN as needed for dry skin, Please apply to area of itchiness & pain., # 30 Gm, 0 Refills, Maintenance, 11/04/21 6:30:00 EDT, Cream, [facility]/pharmacy #[id number], Partial fill upon patient request if the prescription is... Tylenol 325 mg oral tablet: 650 mg, 2, tablet, By Mouth, Every 4 hours, PRN, for 30 days, # 50 tablet, Refills 0, Tot. Refills 0, Acute 11/20/21 15:28:00 EDT, Pain , Mild, 10/21/21 15:28:00 EDT, Route to Pharmacy Electronically, [place] [address], Partial fill u... cephalexin monohydrate 500 mg oral capsule: 1 capsule = 500 mg, By Mouth, 4 times a day, for 10 days, # 40 capsule, 0 Refills, Acute 11/15/21 17:00:00 EDT, 11/05/21 17:00:00 EDT, Capsule, [facility], Partial fill upon patient request if the prescription is for a schedule... ibuprofen 600 mg oral tablet: 600 mg, 1, tablet, By Mouth, 3 times a day, # 90 tablet, Refills 0, Tot. Refills 0, Maintenance, 11/05/21 17:52:00 EDT, Route to Pharmacy Electronically, [place] [address], Partial fill upon patient request if the prescription is for... pantoprazole 40 mg oral delayed release tablet: = 40 mg, By Mouth, Daily, # 30 tablet, 0 Refills, Maintenance, 10/21/21 15:30:00 EDT, EC Tablet, 152.4, cm, 10/21/21 11:01:00 EDT, Height, 96.9, kg, 03/11/21 12:15:00 EST, Dry Weight sodium chloride 0.65% nasal spray: 1 sprays, Nares, Both, 2 times a day, PRN Other, dryness, # 1 each, 2 Refills, Maintenance, 10/21/21 15:28:00 EDT, Nasal [place], [place] [address], Partial fill upon patient request if the prescription is for a schedule II opioid drug.... Documented Medications Documented MiraLax oral powder for reconstitution: = 17 [...] 0 Refills, Maintenance, 10/24/19 23:19:00 EDT, Solution acetaminophen 325 mg oral tablet: 650 mg, 2, tablet, By Mouth, Every 4 hours, PRN, Maintenance, pain/fever, 01/08/22 7:51:00 EDT, ; famotidine 40 mg oral tablet: 1 tablet = 40 mg, By Mouth, Daily, 0 Refills, Maintenance, 12/29/21 18:57:00 EDT, Tablet, ; hydrOXYzine hydrochloride 25 mg oral tablet: 1 tablet = 25 mg, By Mouth, Every 12 hours, PRN Agitation/ sleep, 0 Refills, Maintenance, 12/29/21 18:56:00 EDT, ; naltrexone 50 mg oral tablet: 1 tablet = 50 mg, By Mouth, Daily, 0 Refills, Maintenance, 12/29/21 18:57:00 EDT, Tablet, ; silver sulfADIAZINE 1% topical cream: 1/4 ribbon, Topically, Daily at bedtime, FOR VAGINAL ITCHING. Aware of diagnosis: patient, family. Procedures Procedure/Surgical History EGD - Esophagogastroduodenoscopy ([id number]) on 10/16/2021 at 26 Years.. Discharge condition: good Hospital Course Adilene Mathews is a 27 year old female with PMHx significant for Prader-Willi syndrome, autism, pica, autism, who presented to the ED from her half-way on 06/08/22 for concern of a foreign body ingestion, with concern for airway obstruction. The patient was hemodynamically stable in the ED and had been saturating 98% on room air. The patient had a chest x ray and a soft tissue x- ray, but given that Styrofoam is not radio-opaque, it is unlikely to be visualized by x-ray. Given the emergency of the situation, the patient was directly brought to the operating theatre chad bronchoscopy was performed, which revealed no obvious obstruction. Most likely, the styrofoam piece went down the esophagus and into the stomach. The patient was extubated and transferred to the PACU in stable condition. No further surgical interventions are indicated at this time. Discharge Plan Diet/Activity/Patient Education/Follow Up Discharge Disposition Discharge: [facility]. * Rani KAPLAN, Jean: PERFORM Event Display: Discharge/Transfer Note Hospital Authored Date: [id number] I agree with the above. Discharge planning to half-way. F/u PCP, no scheduled f/u with the surgery clinic. RA * Hannah Fleming RN: PERFORM Hannah Fleming RN: PERFORM Event Display: Patient Education/Instruction Authored Date: [id number] Inpatient Adult Discharge Instructions [place] [id number] Name: ADILENE MATHEWS : 1995 Visit: 06/08/2022 12:24:00 Current Date: 06/08/2022 18:52 Account: [id number] Inpatient Adult Discharge Instructions We would like [...] and their families. Surveys are administered by [employer]. ?? If further treatment with your primary care physician or another doctor is recommended, it is important for you to keep the appointment. Call your primary care physician or return to the Emergency Department immediately if your condition worsens, fails to improve, or new symptoms develop. If you need to find a doctor, you can call [facility] for a referral at [phone] or toll free at [phone]) or log in to [email or web address].. ?? You can view and manage your care through the patient portal or by using a health care kymberly of your choosing. [employer] is a website that allows you to securely view your medical information including your hospital discharge summary, office visit summaries, medications and follow-up visits. You can also request appointments, renew medications, and request access to your medical information using a health care kymberly of your choosing, or just ask a question. You can enroll at [email or web address] or register during your next office visit. You have been discharged from [facility], Patient Care Unit: [place]. If you have any questions regarding these instructions after you leave, please call us and we will be happy to assist you. [facility] Your Care Team Attending Physician Leeann GLASS, Jana Grigsby Consulting Providers Jos KAPLAN, Laz Phelan MD, [place] Discharging Providers Speedy KAPLAN, Amandeep Gotti Reason for Admission Pt swallowed styrofoam plate during lunch at half-way, reports feeling a poking in my throat and diff swallowing Tests Performed Below is a partial list of the tests performed during your hospitalization. You may have had other tests and procedures not included in this list. Please discuss all test results with your provider. COVID-19 (Novel Coronavirus), Rapid PCR XR Chest 2 Views Frontal and Lat XR Neck Soft Tissue Primary Care Provider Galen Xie MD Advance Directive Health Care Proxy on File Yes - Health Care Proxy Discharge Vitals Temperature: 97.7 DegF Pulse Rate: 65 bpm Respiratory Rate:??15 br/min??Low Systolic Blood Pressure: 112 mm Hg Diastolic Blood Pressure: 83 mm Hg Oxygen Saturation: 95 % Studies Pending All tests and labs ordered during this hospital stay have been completed unless listed below. Please discuss all pending results with your provider listed above in these instructions. ?? No incomplete studies found What to do next Instructions From Your Doctor Discharge Orders You Need to Schedule the Following Appointments Follow Up with??Galen Xie MD When??Only if needed Where: [address] [place] [address]- Discharge Medications ADILENE MATHEWS :1995 Visit Date:06/08/2022 Medications: Please continue your medications until treatment is completed or stopped by your provider. Medications not listed below should be discontinued. Discuss any questions related to medications with your provider. What How Much When Instructions Next Dose Unchanged Acetaminophen (acetaminophen 325 mg oral tablet) 2 tab(s) Oral Every 4 hours as needed for pain/fever 1 PM if needed Unchanged Aripiprazole (ARIPiprazole 5 mg oral tablet) 1 tab(s) Oral Daily as scheduled Unchanged Atenolol (atenolol 25 mg oral tablet) 1 tab(s) Oral Daily as scheduled Unchanged Calcium And Vitamin D Combination (calcium (as citrate)-vitamin D 200 mg-250 intl units oral tablet) 1 tab(s) Oral Daily in the morning as scheduled Unchanged Cholecalciferol (cholecalciferol 2000 intl units oral capsule) 1 capsule Oral Daily Duration: 30 Days as scheduled Unchanged Famotidine (famotidine 40 mg oral tablet) 1 tab(s) Oral Daily as scheduled Unchanged Fluoxetine (FLUoxetine 20 mg oral capsule) 20 Milligram Oral Daily in the morning Duration: 30 Days as scheduled Unchanged Fluticasone Nasal (fluticasone 50 mcg/ inh nasal spray) 1 spray(s) Nares, Both Daily at Bedtime as scheduled Unchanged Folic Acid (folic acid 1 mg oral tablet) 1 tab(s) Oral Daily as scheduled Unchanged HydrOXYzine (hydrOXYzine hydrochloride 25 mg oral tablet) 1 tab(s) Oral Every 12 hours as needed for Agitation/ sleep as scheduled Unchanged Mercaptopurine (mercaptopurine 50 mg oral tablet) 1 tab(s) Oral Daily as scheduled Unchanged Naltrexone (naltrexone 50 mg oral tablet) 1 tab(s) Oral Daily as scheduled Unchanged [place]-3 Polyunsaturated Fatty Acids ([place]-3 1000 mg oral capsule) 1 capsule Oral 3 times a day Duration: 30 Days as scheduled Unchanged Polyethylene Glycol 3350 (MiraLax oral powder for reconstitution) 17 gram Oral Daily as needed for as needed dissolve in water before taking ?? as scheduled Unchanged Silver SulfADIAZINE Topical (silver sulfADIAZINE 1% topical cream) 1/4 ribbon Topically Daily at Bedtime FOR VAGINAL ITCHING ?? as scheduled Unchanged Sodium Chloride Nasal (Saline Nasal Mist) 2 spays Nares, Both Every 12 hours as needed for as needed for dry nasal passages as scheduled Unchanged Ustekinumab (Stelara PFS 90 mg/ mL subcutaneous solution) 1 Milliliter Subcutaneous Injection Every 8 Weeks on Fridays ?? as scheduled Test Results Below is a partial list of the most recent Laboratory test results done prior to this discharge. You may have had other tests and procedures not included in this list. Please discuss all test resultswith your provider. COVID-19 (Novel Coronavirus), Rapid PCR (06/08/2022) ???COVID-19 by RT-PCR - NEGATIVE Allergies (NKA means No Known Allergies) Haldol LMX 4 with Tegaderm Problems Active Problems??(11) Anxiety?? Autism spectrum?? Constipation?? Crohn disease?? Dermatitis?? Foreign body in hypopharynx?? Foreign body ingestion?? Pica?? Prader-Willi syndrome?? Prader-Willi syndrome?? Severe obesity?? Education Materials Below is the list of Educational Leaflet Providered with your Discharge Instructions. Swallowed Foreign Body (Adult)?? Surgery Medical Daystay Surgical Overnight Discharge Instructions?? Valuables and Belongings I fully understand and agree that [facility] accepts no responsibility for all my personal [...] to send valuables and belongings home. ?? Date for Pt to Sign Valuables/Belongings: 06/08/22 15:03:00 ?? Other Discharge Information ? Pulmonary Rehab Status?? Pulmonary Rehab Discharge Status?? Respiratory Rate:??15 br/min??Low ? Common Emergency Awareness Tips IS IT [...] are strongly encouraged to quit. Please call [employer] at [phone] or [phone] ([phone]) or log in to [email or web address] for referrals to smoking cessation programs. ?? The National Suicide Prevention Hotline is available 19/10 if you or someone you know needs to find a reason to keep living. By calling 0-536-921-talk (5572) you'll be connected to a skilled, trained counselor at a crisis center in your area. INPATIENT DISCHARGE INSTRUCTIONS SIGNATURE PAGE ADILENE MATHEWS [facility]:[id number] Location:[facility] Registration Date and Time:06/08/2022 12:24 EDT Primary Care Physician: Rojas KAPLAN, Galen, I ADILENE MATHEWS, have received the above patient education materials/instructions and have verbalized understanding. If ambulance or transport services are being used I further acknowledge being given a choice of service. ?? If you need to contact me, please call me at this number: . Patient/Electricians Top Helper Name: Patient/Electricians Top Helper Signature: Relationship to Patient: Witness Name/Signature: Date: * Hannah Fleming RN: PERFORM Event Display: Patient Education Leaflets Authored Date: [id number] Swallowed Foreign Body (Adult) ?? [id number] Swallowed Foreign Body (Adult) Indigestible objects (foreign [...] faintness ?? Last Reviewed Date: 2022 ?? The [employer]. All rights reserved. This information is not intended as a substitute for professional medical care. Always follow your healthcare professional's instructions. ?? * Hannah Fleming RN: PERFORM Event Display: Patient Education Leaflets Authored Date: [id number] Surgery Medical Daystay Surgical Overnight Discharge Instructions [...] should not drive or drink alcohol. ? * BHSPowerscribe , CIS S: TRANSCRIBE Cameron Lux MD: VERIFY Event Display: Result: Authored Date: [id number] Chest 2 Views Frontal and Lat INDICATION/CLINICAL QUESTION: Hx of Present Illness: Took a bite out of a styrofoam plate. States she feels it in her throat; Reason: Other:; ingested styrofoam; Clinical Question(s): Other:; FB / Other: TECHNIQUE: Frontal and lateral views of the chest. COMPARISON: 05/09/2022. FINDINGS: LINES AND TUBES: None. LUNGS AND PLEURA: RIGHT CHEST: The right lung is clear and there is no right effusion. LEFT CHEST: The left lung is clear and there is no left effusion. HEART, MEDIASTINUM AND JESSICA: The heart is of normal size. The mediastinum and jessica are normal. BONES AND SOFT TISSUES: No acute bony abnormality. Opaque foreign body seen in the airways. IMPRESSION: 1. No active disease in chest. 2. No opaque foreign body is seen. However, I would not expect that styrofoam would be detectable by x-ray. WSN: [id number] Ordering Physician: Simi Armando Dictated By: Cameron Lux MD Dictated Date/Time: 06/08/22 1:29 pm Reviewed By: Cameron Lux MD Signed By: Cameron Lux MD Signed Date/Time: 06/08/22 1:29 pm Transcribed By: ROS Transcribed Date/Time: 06/08/22 1:27 pm * SPowernormanrijono , FREYA S: TRANSCRIBE Cameron Lux MD: VERIFY Event Display: Result: Authored Date: [id number] Neck Soft Tissue Hx of Present Illness: Took a bite out of a styrofoam plate. States she feels it in her throat; Reason: Foreign Body; ingested styrofoam; Clinical Question(s): Other:; FB COMPARISON: None FINDINGS: Patent nasopharynx. No abnormal adenoidal enlargement. Normal retropharyngeal and retrotracheal soft tissues. Normal airway. Normal bones. IMPRESSION: 1. No abnormality seen. 2. However Styrofoam would likely not be detectable on x-ray examination in this exam should therefore not be used to exclude the possibility of a Styrofoam foreign body. WSN: [id number] Ordering Physician: Simi Armando Dictated By: Cameron Lux MD Dictated Date/Time: 06/08/22 1:32 pm Reviewed By: Cameron Lux MD Signed By: Cameron Lux MD Signed Date/Time: 06/08/22 1:32 pm Transcribed By: ROS Transcribed Date/Time: 06/08/22 1:31 pm Patient Care team information Care Team Personnel Name: John Frederick RN Position: [facility] RN Member Role: Primary Care Nurse Name: Anthony Viveros RN Position: S RN Member Role: Primary Care Nurse Name: Galen Xie MD Position: [facility] Physician (General Medicine) Member Role: PCP Address: Address: [address] Name: Julia Sumner Position: S RN Member [...] Care Nurse Name: Janay Judd RN Position: [facility] RN Member Role: Primary Care Nurse Name: Brit Gracia RN Position: [facility] RN Member Role: Primary Care Nurse Name: Karma Miller RN Position: [facility] RN Member Role: Primary Care Nurse Name: Latricia ROSE Attending Position: [facility] ED Medicine MD Name: Simi Suazo Position: [facility] Associate Professional Member Role: ED Physician Financial Report Service Sales Agent Address: Address: [address] [place] [address] Emergency Medicine [place], [place] [address] Name: Kandy Scott RN Position: [facility] ED RN W/OE and Tasks Member Role: Patient Care Provider Care Team Related Persons Name: ELIZABETH REES Address: home [address] [place] [id number] Name: ROLAND WILLIAM Address: home [address] [place] [address]
--- OUTSIDE RECORDS SUMMARY | 2023-09-23 06:11 | XMS_ITS | Continuity of Care Document ---
Author Organization [facility] ter Address [address] [place] [id number]- Care Team Providers Care Filenet P8 Developer Name Role Phone Rojas KAPLAN, Asma Primary Care Physician [phone] Encounter [facility] Date(s): 01/12/22 - 01/12/[address] [address]- Discharge Disposition: A-D/C Home Attending Physician: Dawit Philip MD Admitting Physician: Dawit Philip MD Referring Physician: Not on Staff, Referring [...] 10/21/21 15:28:00 EDT, Route to Pharmacy Electronically, [facility]-340[facility], Partial fill upon patient request if the prescription is for a schedule... Start Date: 10/21/21 Status: Ordered atenolol 25 mg oral tablet 25 mg, 1, tablet, By Mouth, Daily, # 30 tablet, Refills 0, Tot. Refills 0, Maintenance, 10/21/21 15:28:00 EDT, Route to Pharmacy Electronically, [facility]-627[address], Partial fill upon patient request if the prescription is for a schedul... Start Date: 10/21/21 Status: Ordered calcium (as citrate)-vitamin D 200 mg-250 intl units oral tablet 1 tablet, By Mouth, Daily in AM, # 30 tablet, 0 Refills, Maintenance, 10/21/21 15:24:00 EDT, Tablet, [facility], Partial fill upon patient request if the prescription is for aschedule II opioid drug., 1 tablet By Mouth Daily i... Start Date: 10/21/21 Status: Ordered cholecalciferol 2000 intl units oral capsule 1 capsule = 50 mcg, By Mouth, Daily, # 30 capsule, 0 Refills, Maintenance, 10/21/21 15:27:00 EDT, Capsule, [facility]-48903, Partial fill upon patient request if the [...] 10/21/21 15:30:00 EDT, Route to Pharmacy Electronically, [facility]-47[address], Partial fill upon patient request if the prescription is for a schedule II... Start Date: 10/21/21 Stop Date: 11/20/21 Status: Ordered fluticasone 50 mcg/inh nasal spray 1 sprays = 50 mcg, Nares, Both, Daily at bedtime, # 16 Gm, 0 Refills, Maintenance, 10/21/21 15:30:00 EDT, Nasal [place], [facility]- [address], Partial fill upon patient request if the prescription is for a schedule II opioid drug., 1 spray... Start Date: 10/21/21 Status: Ordered folic acid 1 mg oral tablet 1 mg, 1, tablet, By Mouth, Daily, # 30 tablet, Refills 0, Tot. Refills 0, Maintenance, 10/21/21 15:30:00 EDT, Route to Pharmacy Electronically, [facility]-99209, Partial fill upon patient request if the [...] 0 Refills, Maintenance, 10/21/21 15:30:00 EDT, Tablet, [facility]-64060, Partial fill upon patient request if the [...] Tablet, ; Start Date: 12/29/21 Status: Ordered [place]-3 1000 mg oral capsule 1 capsule = 1,000 mg, By Mouth, 3 times a day, # 90 capsule, 0 Refills, Maintenance, 10/21/21 15:27:00 EDT, Capsule, [facility]-279[address], Partial fill upon patient request if the [...] Exam Date Time Procedure Performing Provider Status 01/12/22 3:05 AM Neck Soft Tissue Pietro Shirley; Aut h (Verified) Notes: (Neck Soft Tissue) Reason For Exam: Foreign Body RESULT: Neck Soft Tissue Neck Soft Tissue Hx of Present Illness: pt coming from senior care, swallowed button; Reason: Foreign Body; Clinical Question(s): Foreign Body Location COMPARISON: 11/24/2021 FINDINGS: The airway is patent throughout its visualized course. No radiopaque foreign bodies are seen. The prevertebral soft tissues are within normal limits. The osseous structures are unremarkable. IMPRESSION: There are no radiopaque foreign bodies. The airway is unremarkable. WSN: [id number] Ordering Physician: Natalie Gerard Dictated By: Radha Mcknight MD Dictated Date/Time: 01/12/22 8:51 am Reviewed By: Radha Mcknight MD Signed By: Radha Mcknight MD Signed Date/Time: 01/12/22 8:51 am Transcribed By: ROS Transcribed Date/Time: 01/12/22 8:50 am Vital Signs Most recent to oldest [Reference Range]: 1 Oxygen Saturation [94-100 %] 94 % (01/12/22 1:55 AM) Pulse Rate [55-90 bpm] 78 bpm (01/12/22 1:55 AM) Blood Pressure [90-138/55-84 mm Hg] 110/ 84mm Hg (01/12/22 1:55 AM) Respiratory Rate [16-30 br/min] 20 br/mi n (01/12/22 1:55 AM) Temperature [96.8-100.4 DegF] 98.2 DegF (01/12/22 1:55 AM) Mode of Delivery (Oxygen) Room air (01/12/22 1:55 AM) Blood pressure sites Arm, left (01/12/22 1:55 AM) Temperature Route Oral (01/12/22 1:55 AM) Social History Social History Type Response Smoking Status Never (less than 100 in lifetime) entered on: 09/17/20 Sex Note * BHSPowerscribe , CIS S: TRANSCRIBE Radha Mcknight MD: VERIFY Event Display: Result: Authored Date: [id number] Neck Soft Tissue Hx of Present Illness: pt coming from senior care, swallowed button; Reason: Foreign Body; Clinical Question(s): Foreign Body Location COMPARISON: 11/24/2021 FINDINGS: The airway is patent throughout its visualized course. No radiopaque foreign bodies are seen. The prevertebral soft tissues are within normal limits. The osseous structures are unremarkable. IMPRESSION: There are no radiopaque foreign bodies. The airway is unremarkable. WSN: [id number] Ordering Physician: Natalie Gerard Dictated By: Radha Mcknight MD Dictated Date/Time: 01/12/22 8:51 am Reviewed By: Radha Mcknight MD Signed By: Radha Mcknight MD Signed Date/Time: 01/12/22 8:51 am Transcribed By: ROS Transcribed Date/Time: 01/12/22 8:50 am Patient Care team information Personnel Name: Galen Xie MD Address: Address: [facility] [address]
--- OUTSIDE RECORDS SUMMARY | 2023-09-23 06:11 | XMS_ITS | Continuity of Care Document ---
Author Organization [facility] ter Address [address] [place] [id number]- Care Team Providers Care Technical Services Representative Name Role Phone Rojas KAPLAN, Asma Primary Care Physician Encounter [facility] Date(s): 01/16/23 - 01/17/[address] [address]- Encounter Diagnosis Foreign body ingestion(Final) - 01/16/23 Discharge Disposition: A-D/C Home Attending Physician: Delvis KAPLAN, Noryley Admitting Physician: Ritu KAPLAN, Ross Palomares Referring Physician: Not on Staff, Referring MD [...] 10/21/21 15:28:00 EDT, Route to Pharmacy Electronically, [facility]-[id number], Partial fill upon patient request if the [...] 0 Refills, Maintenance, 10/21/21 15:24:00 EDT, Tablet, [facility]-[id number], Partial fill upon patient request if the prescription is for aschedule II opioid drug., 1 tablet By Mouth Daily i... Start Date: 10/21/21 Status: Ordered cholecalciferol 2000 intl units oral capsule 1 capsule = 50 mcg, By Mouth, Daily, # 30 capsule, 0 Refills, Maintenance, 10/21/21 15:27:00 EDT, Capsule, [facility]-[id number], Partial fill upon patient request if the [...] 10/21/21 15:30:00 EDT, Route to Pharmacy Electronically, [facility]-[id number], Partial fill upon patient request if the prescription is for a schedule II... Start Date: 10/21/21 Stop Date: 11/20/21 Status: Ordered fluticasone 50 mcg/inh nasal spray 1 sprays = 50 mcg, Nares, Both, Daily at bedtime, # 16 Gm, 0 Refills, Maintenance, 10/21/21 15:30:00 EDT, Nasal Preston, [facility]- [id number], Partial fill upon patient request if the prescription is for a schedule II opioid drug., 1 spray... Start Date: 10/21/21 Status: Ordered folic acid 1 mg oral tablet 1 mg, 1, tablet, By Mouth, Daily, # 30 tablet, Refills 0, Tot. Refills 0, Maintenance, 10/21/21 15:30:00 EDT, Route to Pharmacy Electronically, [facility]-[id number], Partial fill upon patient request if the [...] 0 Refills, Maintenance, 10/21/21 15:30:00 EDT, Tablet, [facility]-[id number], Partial fill upon patient request if the [...] Tablet, ; Start Date: 12/29/21 Status: Ordered Turin-3 1000 mg oral capsule 1 capsule = 1,000 mg, By Mouth, 3 times a day, # 90 capsule, 0 Refills, Maintenance, 10/21/21 15:27:00 EDT, Capsule, [facility]-[id number], Partial fill upon patient request if the [...] List Condition Confirmation Course Effective Dates Status [facility] Informant Anxiety Confirmed Active Autism spectrum Confirmed Active Constipation Confirmed Active Crohn disease Confirmed Active Foreign body in hypopharynx Confirmed Active Pica Confirmed Active Prader-Willi syndrome Confirmed Active Prader-Willi syndrome Confirmed Active Severe obesity Confirmed Active Results Radiology Reports * Exam Date Time Procedure Performing Provider Status 01/16/23 1:00 AM Chest 2 Views Fronta l and Lat Starr James; Auth (Verified) Notes: (Chest 2 Views Frontal and Lat) Reason For Exam: Shortness of Breath, Fever;Other: RESULT: Chest 2 Views Frontal and Lat Chest 2 Views Frontal and Lat INDICATION: Hx of Present Illness: Patient from assisted with history of PICA reports swallowing a twist tie about 1 hour sloop captain. This unwitnessed by assisted staff. Patient denies pain.; Reason: Other:; Shortness of Breath, Fever; Clinical Question(s): Pneumonia COMPARISON: 01/15/2023 FINDINGS: Image quality is suboptimal due to patient body habitus LINES AND TUBES: Interval extubation. Foreign body in the right perihilar region described on the prior exam is no longer visualized. LUNGS AND PLEURA: Mild pulmonary vascular congestion. No evidence of developing confluent airspace opacity or lung consolidation. Costophrenic sulci are maintained. No evidence of pneumothorax. HEART, MEDIASTINUM AND ROSA MARIA: Mild enlargement of the cardiomediastinal silhouette BONES AND SOFT TISSUES: No acute abnormality. S-shaped thoracolumbar scoliosis IMPRESSION: Mild cardiomegaly and pulmonary vascular congestion Interval extubation Foreign body in the right perihilar region described on the prior exam is no longer visualized WSN: [id number] Ordering Physician: Anabelle Solomon Dictated By: Jak Leroy Jr, MD Dictated Date/Time: 01/16/23 7:45 am Reviewed By: Jak Leroy Jr, MD Signed By: Jak Leroy Jr, MD Signed Date/Time: 01/16/23 7:45 am Transcribed By: ROS Transcribed Date/Time: 01/16/23 7:44 am * Exam Date Time Procedure Performing Provider Status 01/15/23 8:34 PM Chest Portable Luis Eduardo Gaona ( Verified) Notes: (Chest Portable) Reason For Exam: metal object in airway RESULT: Chest Portable Chest Portable Hx of Present Illness: Patient from assisted with history of PICA reports swallowing a twist tie about 1 hour sloop captain. This unwitnessed by assisted staff. Patient denies pain.; Reason: metal object in airway COMPARISON: Chest abdominal radiographs from 01/15/2023 FINDINGS: LINES AND TUBES: Endotracheal tube tip points into the opening of the right mainstem bronchus. LUNGS AND PLEURA: Low lung volumes. A 9 mm thin radiodense foreign body projects over the right infrahilar region with a slight curve of its superior aspect. This is seen on images obtained at 20:05 and 20:07. On image obtained at 20:22, this object is no longer seen, and likely removed from the patient. No pleural effusion. No pneumothorax. HEART, MEDIASTINUM AND ROSA MARIA: Heart is normal in size. Normal mediastinal and hilar contour. BONES AND SOFT TISSUES: No acute abnormality. IMPRESSION: Initial images show a 9 mm thin radiodense foreign body projecting over the right infrahilar regionsuggestive of aspirated foreign body which was subsequently removed by the clinical team via bronchoscopy. No residual radiopaque foreign body seen on frontal image of the chest and abdomen obtained at 20:22. Endotracheal tube tip points into the opening of the right mainstem bronchus. Please consider withdrawing by 2.5 cm, if endotracheal tube is to be kept in the patient. Findings communicated to nurse mechanical maintenance engineer Ms. Louis at 20:40 on 01/15/2023 via phone. WSN: [id number] Ordering Physician: Lucía Freitas Dictated By: Chevy Schneider MD Dictated Date/Time: 01/15/23 8:46 pm Reviewed By: Chevy Schneider MD Signed By: Chevy Schneider MD Signed Date/Time: 01/15/23 8:46 pm Transcribed By: ROS Transcribed Date/Time: 01/15/23 8:37 pm * Exam Date Time Procedure Performing Provider Status 01/15/23 5:37 PM Abdomen Series W/ PA Chest Werner , Monica aida; Auth (Verified) Notes: (Abdomen Series W/ PA Chest) Reason For Exam: Distention RESULT: Abdomen Series W/ PA Chest Abdomen Series W/ PA Chest views Hx of Present Illness: Patient from assisted with history of PICA reports swallowing a twist tie about 1 hour sloop captain. This unwitnessed by assisted staff. Patient denies pain.; Reason: Distention; Clinical Question(s): Obstruction; Free Air COMPARISON: 12/02/2022 FINDINGS: LINES AND TUBES: None. LUNGS AND PLEURA: Clear lungs. Normal vascularity. No pleural effusion. No pneumothorax. HEART, MEDIASTINUM AND ROSA MARIA: Normal. BOWEL GAS PATTERN AND SOFT TISSUES: Normal bowel gas pattern. No pneumoperitoneum. No abnormal calcifications. BONES: Normal bones. IMPRESSION: No acute abnormality. WSN: [id number] Ordering Physician: Frantz Lynn Dictated By: Juan Denney MD Dictated Date/Time: 01/15/23 5:43 pm Reviewed By: Juan Denney MD Signed By: Juan Denney MD Signed Date/Time: 01/15/23 5:43 pm Transcribed By: ROS Transcribed Date/Time: 01/15/23 5:42 pm * Exam Date Time Procedure Performing Provider Status 01/15/23 5:37 PM Neck Soft Tissue Viral Werner; Markos camp (Verified) Notes: (Neck Soft Tissue) Reason For Exam: Foreign Body RESULT: Neck Soft Tissue Neck Soft Tissue Hx of Present Illness: Patient from assisted with history of PICA reports swallowing a twist tie about 1 hour sloop captain. This unwitnessed by assisted staff. Patient denies pain.; Reason: Foreign Body; Clinical Question(s): Foreign Body Location COMPARISON: None FINDINGS: There is radiopaque/metallic density noted in the right neck likely along the superior aspect of the right side of the epiglottis. This is consistent with a wire/twisty tie as noted in the history provided. Normal bones. IMPRESSION: Radiopaque linear structure noted along the right superior aspect of the epiglottis. WSN: [id number] Ordering Physician: Etienne Roberto MD Dictated By: Juan Denney MD Dictated Date/Time: 01/15/23 5:40 pm Reviewed By: Juan Denney MD Signed By: Juan Denney MD Signed Date/Time: 01/15/23 5:40 pm Transcribed By: ROS Transcribed Date/Time: 01/15/23 5:38 pm Vital Signs Most recent to oldest [Reference Range]: 1 2 3 Height 155 cm (01/17/23 11:44 AM) 155 cm (01/17/23 7:40 AM) 155 cm (01/17/23 7:22 AM) Weight 104.7 kg (01/17/23 11:44 AM) 104.7 kg (01/17/23 7:40 AM) 104.7 kg (01/17/23 7:22 AM) Oxygen Saturation [94-100 %] 100 % (01/17/23 11:44 AM) 95 % (01/17/23 9:45 AM) 86 % *L* (01/17/23 9:30 AM) Pulse Rate [55-90 bpm] 84 bpm (01/17/23 11:44 AM) 72 bpm (01/17/23 7:40 AM) 71 bpm (01/17/23 7:22 AM) Body Mass Index [18.5-24.99 kg/m2] 43.58 kg/m2 *>HHI* (01/17/23 11:44 AM) 43.58 kg/m2 *>HHI* (01/17/23 7:40 AM) 43.58 kg/m2 *>HHI* (01/17/23 7:22 AM) Blood Pressure [90-138/55-84 mm Hg] 114/60mm Hg (01/17/23 11:44 AM) 121/70mm Hg (01/17/23 7:40 AM) 124/67mm Hg (01/17/23 7:22 AM) Respiratory Rate [16-30 br/min] 18 br/min (01/17/23 11:44 AM) 12 br/min *L* (01/17/23 7:40 AM) 10 br/min *L* (01/17/23:22 AM) Temperature [96.8-100.4 DegF] 97.6 DegF (01/17/23 7:40 AM) 98.6 DegF (01/17/23 2:28 AM) 97.9 DegF (01/16/23 7:22 AM) Liters per Minute 3 L/min (01/17/23 9:45 AM) 4 L/min (01/17/23 8:12 AM) 2 L/min (01/17/23 8:10 AM) Mode of Delivery (Oxygen) Room air (01/17/23 11:44 AM) Simple face mask (01/17/23 9:45 AM) Room air (01/17/23 9:30 AM) Blood pressure sites Arm, right (01/17/23 7:22 AM) Arm, right (01/17/23 6:52 AM) Arm, right (01/17/23 5:56 AM) Temperature Route Oral (01/17/23 7:40 AM) Oral (01/17/23 2:28 AM) Oral (01/16/23 7:22 AM) Social History Social History Type Response Smoking Status Never (less than 100 in lifetime) entered on: 09/17/20 Sex Female Admission evaluation note * Tom KAPLAN, Juliana: MODIFY, MODIFY, MODIFY, PERFORM Event Display: Admission Note Authored Date: [id number] Patient: ??ADILENE MATHEWS ? Age:??27 Years?Sex:??Female?:??1995?? 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 ?? snf workers accompanying the patient describe that the patient was getting her iPad and there was a staple magnetized to the back of the iPad which they assume she found and then grabbed and quickly put into her mouth. She immediately told the workers though that she had eaten it. Patient also describes that for the past few days she has had cough and sore throat, but afebrile and no difficulty with breathing. ?? ED course - initial neck XR showed that the staple was above the glottis and the plan was for sedation with anesthesia and removal of the foreign body in the OR but once sedated, they believe thatshe aspirated the staple and so had to be intubated for bronchoscopy and subsequent removal.??Whileintubated, CXR showed that the foreign body was projecting over the right infrahilar region.??They r emoved the staple and subsequent CXR was done to look for any resulting aspiration pneumonitis, pneumothorax, or other abnormalities which they couldn't find. However, the patient had a new increasing oxygen requirement after the procedure and was placed on 6L oxymask. Review of Systems Review of systems otherwise negative, unless stated in HPI section Objective Measurements?? Height: 155 cm (01/16/23) Weight: 104.7 kg (01/16/23) Body Mass Index:??43.58 kg/m2??Critical (01/16/23) ? Vital Signs?? Temperature: 97.9 DegF (01/16/23 07:22:00) Temperature Route: Oral (01/16/23 07:22:00) Pulse Rate: 88 bpm (01/16/23 12:14:00) Heart Rate Monitored: 78 bpm (01/16/23 03:37:00) Respiratory Rate:??14 br/min??Low (01/16/23 12:14:00) Vented: No (01/15/23 23:15:00) Systolic Blood Pressure: 135 mm Hg (01/16/23 12:14:00) Diastolic Blood Pressure:??92 mm Hg??High (01/16/23 12:14:00) Blood pressure sites: Arm, left (01/16/23 12:14:00) Mean Arterial Pressure: 106 mm Hg (01/16/23 12:14:00) Pulse Pressure: 43 mm Hg (01/16/23 12:14:00) Oxygen Saturation: 95 % (01/16/23 12:14:00) Liters per Minute: 6 L/min (01/16/23 07:22:00) Mode of Delivery (Oxygen): Room air (01/16/23 12:14:00) Early Warning Score: 4 (01/16/23 12:15:13) ? Intake/Output? 01/15 15:09 01/16 07:00 01/15 07:00 01/14 07:00 01/13 07:00 ?? 01/16 13:46 01/16 13:46 01/16 06:59 01/15 06:59 01/14 06:59 Intake ?0 ?0 ?0 ?0 ?0 Output ?400 ?0 ?400 ?0 ?0 Net Total ? -400 ?0 ? -400 ?0 ?0 ? Physical Exam Constitutional: Alert, in no distress. Oxymask in place over mouth and nose. Head: Normocephalic. Eyes:??Extraocular muscles intact. Ear, Nose and Throat: Oropharynx clear, mucous membranes moist. Ears and nose without masses, lesions or deformities. Trachea midline. Neck: Supple, full range of motion. Respiratory: Clear to auscultation. No wheezing, rales or rhonchi. Cardiovascular: Regular rate and rhythm. No murmurs, rubs or gallops. Gastrointestinal: Abdomen soft, non-tender, non-distended. Neurologic: Cranial nerves II-XII grossly intact. No focal neurological deficits.??Moves all extremities spontaneously. Assessment/Plan Diagnoses Foreign body aspiration ??(T17.908A) Foreign body ingestion ??(T18.9XXA) Hypoxia ??(R09.02) Sleep disorder breathing ??(G47.30) ?? 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 ?? Foreign body ingestion Foreign body aspiration Pica Hypoxia Sleep disorder breathing CXR following removal of the foreign body does not show signs of aspiration pneumonitis and there is no evidence of an aspiration pneumonia at this time. Her ED labwork was unremarkable and her vitals have been stable. The most likely cause of her hypoxia is obesity hypoventilation syndrome or sleep disorder breathing. She had a sleep study done by Dr. Flor (pest control supervisor, [facility]) earlier this year in June 2022 and the recommendation was for heated humidification with BiPAP for either??obesity hypoventilation or KARLA. ADMINISTRATIVE JUDGE does not think that a swallow evaluation is indicatedand that the patient can be started on a regular diet. Agree that patient is not an aspiration riskat the moment because the foreign body was aspirated after she was sedated in the OR, not before the sedation. ?? Plan: - Attempt to wean patient off of oxygen as tolerated with O2 goal >95% - Incentive spirometry - Diet ordered to remove small objects that can be ingested - No BiPAP because of safety concerns due to Pica ?? Chronic problems Anxiety - continue fluoxetine 20mg daily and olanzapine 5mg daily at bedtime HTN - continue atenolol 25mg daily Crohn's disease - continue mercaptopurine 50mg daily ?? Quality Metrics DVT prophylaxis - heparin SQ 7500 TID for BMI>40 Diet - Regular Code status - FULL code ? Chlo?MD [facility] PGY-1 [facility] [address] ?? Patient seen and plan discussed with attending, Dr. Cisneros Histories Allergies Allergies ?(Active and Proposed Allergies Only) LMX 4 with Tegaderm? (Severity: Unknown severity, Onset: Unknown) Haldol? (Severity: Unknown severity, Onset: Unknown) ? Past Medical History/Problem List Active Problems??(11) Anxiety Autism spectrum Constipation Crohn disease Dermatitis Foreign body in hypopharynx Foreign body ingestion Pica Prader-Willi syndrome Prader-Willi syndrome Severe obesity ? Past Surgical History Bronchoscopy with removal of foreign body: 07/05/22 Flexible bronchoscopy: 07/05/22 Esophagogastroduodenoscopy: 02/23/22 EGD - Esophagogastroduodenoscopy: 10/16/21 ? Social History Alcohol Details:??Use: Never. Substance Abuse Details:??Use: Never. Tobacco Details:??Use: Never (less than 100 in lifetime). ? History No previous pregnancies history have been recorded ? Medications Home Medications Acetaminophen (acetaminophen 325 mg oral tablet)?650?Milligram?2?tablet?By Mouth?Daily?as needed?pain/fever Atenolol (atenolol 25 mg oral tablet)?25?Milligram?1?tablet?By Mouth?Daily Calcium And Vitamin D Combination (calcium (as citrate)-vitamin D 200 mg-250 intl units oral tablet)?1?tab(s)?By Mouth?Daily in AM Cholecalciferol (cholecalciferol 2000 intl units oral capsule)?1?capsule?50?Microgram?By Mouth?Daily?for 30?Days DiphenhydrAMINE (Benadryl 25 mg oral capsule)?1?capsule?25?Milligram?By Mouth?Daily?as needed?as needed for itching Famotidine (famotidine 40 mg oral tablet)?1?tab(s)?40?Milligram?By Mouth?Daily Fluoxetine (FLUoxetine 20 mg oral capsule)?20?Milligram?By Mouth?Daily in AM?for 30?Days Fluticasone Nasal (fluticasone 50 mcg/inh nasal spray)?1?spray(s)?50?Microgram?Nares, Both?Daily at bedtime Folic Acid (folic acid 1 mg oral tablet)?1?Milligram?1?tablet?By Mouth?Daily HydrOXYzine (hydrOXYzine hydrochloride 25 mg oral tablet)?1?tab(s)?25?Milligram?By Mouth?Every 12 hours?as needed?Agitation/ sleep Lorazepam (Ativan 1 mg oral tablet)?1?tab(s)?1?Milligram?By Mouth?2 times a day?as needed?as needed for anxiety Melatonin (melatonin 10 mg oral tablet)?1?tab(s)?10?Milligram?By Mouth?Daily at bedtime?as needed?as needed for insomnia Mercaptopurine (mercaptopurine 50 mg oral tablet)?1?tab(s)?50?Milligram?By Mouth?Daily Naltrexone (naltrexone 50 mg oral tablet)?1?tab(s)?50?Milligram?By Mouth?Daily Olanzapine (ZyPREXA 5 mg oral tablet)?5?Milligram?1?tablet?By Mouth?Daily at bedtime Turin-3 Polyunsaturated Fatty Acids (Turin-3 1000 mg oral capsule)?1?capsule?1,000?Milligram?By Mouth?3 times a day?for 30?Days Polyethylene Glycol 3350 (MiraLax oral powder for reconstitution)?17?gram?By Mouth?Daily?as needed?as needed?dissolve in water before taking Silver SulfADIAZINE Topical (silver sulfADIAZINE 1% topical cream)?1/4 ribbon?Topically?Daily at bedtime?FOR VAGINAL ITCHING Sodium Chloride Nasal (Saline Nasal Mist)?2 spays?Nares, Both?Every 12 hours?as needed?as needed for dry nasal passages Ustekinumab (Stelara PFS 90 mg/mL subcutaneous solution)?1?Milliliter?90?Milligram?Subcutaneous Injection?Every 8 Weeks?on Fridays ? Inpatient Medications Medications (20) Active SCHEDULED: (7) Atenolol 25 mg Tablet (atenolol 25 mg oral tablet) ??25 mg, By Mouth, Daily Famotidine 20 mg Tablet (famotidine 20 mg oral tablet) ??40 mg, By Mouth, Daily Fluoxetine 20 mg Capsule (FLUoxetine 20 mg oral capsule) ??20 mg, By Mouth, Daily in AM Fluticasone Propionate 50mcg/inh Nasal Preston (fluticasone 50 mcg/inh nasal spray) ??50 mcg 1 sprays, Nares, Both, Daily at bedtime Mercaptopurine 50 mg Tablet (Mercaptopurine Tablet) ??50 mg, By Mouth, Daily NaCl 0.9% Flush 3ml (NaCL 0.9% Flush) ??3 mL, IV Push, Every 8 hours Olanzapine 5 mg Tablet (ZyPREXA 5 mg oral tablet) ??5 mg, By Mouth, Daily at bedtime CONTINUOUS: (1) Lactated Ringers (1000 mL) Cont IV 1,000 mL (LR 1,000 mL) ??1,000 mL, IV Infusion, 125 mL/hr PRN: (12) Acetaminophen 325 mg Tablet (acetaminophen 325 mg oral tablet) ??650 mg, By Mouth, Every 6 hours Dextromethorphan-Guaifenesin 20 mg-200 mg/10 mL Liqu UD (Robitussin DM Liquid) ??10 mL, By Mouth, Every 4 hours Docusate Sodium 100 mg Capsule (Docusate Sodium Capsule) ??100 mg 1 capsule, By Mouth, 2 times a day HydrOXYzine HCL 10mg Tablet (hydrOXYzine hydrochloride 10 mg oral tablet) ??25 mg, By Mouth, Every 12 hours Lorazepam 1 mg Tablet (Ativan 1 mg oral tablet) ??1 mg, By Mouth, 2 times a day Melatonin 3 mg Tablet (Melatonin Tablet) ??3 mg, By Mouth, Daily at bedtime NaCl 0.9% Flush 3ml (NaCL 0.9% Flush) ??3 mL, IV Push, Every 8 hours nalOXONE ??400mcg/mL Inj (nalOXONE Inj) ??0.04 mg 0.1 mL, IV Push, Every 5 minutes Polyethylene Glycol 17 Gm Powder (MiraLax Powder) ??17 Gm 1 pack/packet, By Mouth, Daily Senna Tablet ??8.6 mg 1 tablet, By Mouth, 2 times a day Simethicone 80 mg Chewable Tablet (Simethicone Tablet) ??80 mg, Chew, 3 times a day Sodium Chloride 0.65% Nasal Preston (Salinex Preston) ??2 sprays, Nares, Both, Every 12 hours ? Results ? Urinalysis?? No qualifying data available. ?? * Blayne KAPLAN, Mague Gotti: PERFORM Event Display: Admission Note Authored Date: Patient seen and discussed with Dr. Santos. Agree with findings, assessment and plan in this admission note. Agree that hypoxia is mainly due to chronic sleep disordered breathing + need for anesthesia/intubation for removal of foreign body (staple). Oxygen requirements improving. Patient tells me she was briefly on BiPAP but it was stopped because of her PICA and risk of ingestion.?? Certainly adifficult combination of problems. I watched the patient eat a pear fruit cup: somewhat impulsive but needing reminders from bedside care aides to slow down but sucessfully ate both the solid and liquid components. without any choking or cough. Has been discharged on oxygen in the past but did not meet criteria for it at July 2022 outpatient pulmonary rehab vist. Note * Delvis KAPLAN, Noor: PERFORM Event Display: Discharge/Transfer Note Hospital Authored Date: Patient: ??MATHEWS, ADILENE ? Age:??27 Years?Sex:??Female?:??1995?? Patient Information [facility]charge [facility]: [facility] Primary Care Physician: Rojas [facility]APLAN, [facility] Ad[facility] Date/Time: 01/16/23 02:35 Discharge Disposition Discharge Disposition: Home: No Services Discharge Diagnosis Foreign body aspiration (T17.908A) Foreign body ingestion (T18.9XXA) Hypoxia (R09.02) Sleep disorder breathing (G47.30) Autism spectrum Foreign body ingestion Prader-Willi syndrome Severe obesity ?? _ Discharge Medications Acetaminophen (acetaminophen 325 mg oral tablet)?650?Milligram?2?tablet?By Mouth?Daily?as needed?pain/fever Atenolol (atenolol 25 mg oral tablet)?25?Milligram?1?tablet?By Mouth?Daily Calcium And Vitamin D Combination (calcium (as citrate)-vitamin D 200 mg-250 intl units oral tablet)?1?tab(s)?By Mouth?Daily in AM Cholecalciferol (cholecalciferol 2000 intl units oral capsule)?1?capsule?50?Microgram?By Mouth?Daily?for 30?Days DiphenhydrAMINE (Benadryl 25 mg oral capsule)?1?capsule?25?Milligram?By Mouth?Daily?as needed?as needed for itching Famotidine (famotidine 40 mg oral tablet)?1?tab(s)?40?Milligram?By Mouth?Daily Fluoxetine (FLUoxetine 20 mg oral capsule)?20?Milligram?By Mouth?Daily in AM?for 30?Days Fluticasone Nasal (fluticasone 50 mcg/inh nasal spray)?1?spray(s)?50?Microgram?Nares, Both?Daily at bedtime Folic Acid (folic acid 1 mg oral tablet)?1?Milligram?1?tablet?By Mouth?Daily HydrOXYzine (hydrOXYzine hydrochloride 25 mg oral tablet)?1?tab(s)?25?Milligram?By Mouth?Every 12 hours?as needed?Agitation/ sleep Lorazepam (Ativan 1 mg oral tablet)?1?tab(s)?1?Milligram?By Mouth?2 times a day?as needed?as needed for anxiety Melatonin (melatonin 10 mg oral tablet)?1?tab(s)?10?Milligram?By Mouth?Daily at bedtime?as needed?as needed for insomnia Mercaptopurine (mercaptopurine 50 mg oral tablet)?1?tab(s)?50?Milligram?By Mouth?Daily Naltrexone (naltrexone 50 mg oral tablet)?1?tab(s)?50?Milligram?By Mouth?Daily Olanzapine (ZyPREXA 5 mg oral tablet)?5?Milligram?1?tablet?By Mouth?Daily at bedtime Turin-3 Polyunsaturated Fatty Acids (Turin-3 1000 mg oral capsule)?1?capsule?1,000?Milligram?By Mouth?3 times a day?for 30?Days Polyethylene Glycol 3350 (MiraLax oral powder for reconstitution)?17?gram?By Mouth?Daily?as needed?as needed?dissolve in water before taking Silver SulfADIAZINE Topical (silver sulfADIAZINE 1% topical cream)?1/4 ribbon?Topically?Daily at bedtime?FOR VAGINAL ITCHING Sodium Chloride Nasal (Saline Nasal Mist)?2 spays?Nares, Both?Every 12 hours?as needed?as needed for dry nasal passages Ustekinumab (Stelara PFS 90 mg/mL subcutaneous solution)?1?Milliliter?90?Milligram?Subcutaneous Injection?Every 8 Weeks?on Fridays ? Medications Started None Medications Discontinued None Allergies Allergies ?(Active and Proposed Allergies Only) LMX 4 with Tegaderm? (Severity: Unknown severity, Onset: Unknown) Haldol? (Severity: Unknown severity, Onset: Unknown) ? Objective Assessment and Plan Assessment:??Diagnoses Foreign body aspiration (T17.908A) Foreign body ingestion (T18.9XXA) Hypoxia (R09.02) Sleep disorder breathing (G47.30) ?? 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 They initially attempted light sedation and direct laryngoscopy using the glide scope during this they did visualize a metal object in the posterior pharynx unfortunately the patient began desatting and they had to emergently intubate the patient for airway protection. The anesthesia team was unable to remove the object, so?? surgery team??attempted to remove it. The laryngoscope was reinserted and the pharynx and larynx reinspected.??they??were unable to localize the object in the pharynx. As such, elected to perform bronchoscopy instead. We then performed a diagnostic bronchoscopy and in doing so, they were able to visualize a metal wire object lodged within the right mainstem bronchus. Hence they safely removed foreign body and sent for pathology. Patient was extubated sfey, has been improving clinically and currently now back to baseline. She is saturating currently well in 92-97% in RA. able to tolerate soft food without any concern. no fever or chills- staff at bedside. ?? Currently, patient is stable to be discharged back . patient and staff are also eager to be discharged , they are instructed of sign and symptms??including??fever, chills,??any other??aspiration episode or difficulty in breathing-they are instructed??to bring her back to ED . No change in her home medications-. ? Vital Signs?? Temperature: 97.6 DegF (01/17/23 07:40:00) Temperature Route: Oral (01/17/23 07:40:00) Pulse Rate: 84 bpm (01/17/23 11:44:00) Respiratory Rate: 18 br/min (01/17/23 11:44:00) Vented: No (01/17/23 06:52:00) Systolic Blood Pressure: 114 mm Hg (01/17/23 11:44:00) Diastolic Blood Pressure: 60 mm Hg (01/17/23 11:44:00) Blood pressure sites: Arm, right (01/17/23 07:22:00) Mean Arterial Pressure: 78 mm Hg (01/17/23 11:44:00) Pulse Pressure: 54 mm Hg (01/17/23 11:44:00) Oxygen Saturation: 100 % (01/17/23 11:44:00) Liters per Minute: 3 L/min (01/17/23 09:45:00) Mode of Delivery (Oxygen): Room air (01/17/23 11:44:00) Early Warning Score: 2 (01/17/23 12:04:51) ? . Physical Exam Neck: Supple, full range of motion. Respiratory: Clear to auscultation. No wheezing, rales or rhonchi. Cardiovascular: Regular rate and rhythm. No murmurs, rubs or gallops. Gastrointestinal: Abdomen soft, non-tender, non-distended. Surgical Procedures Intubation Difficult 01/15/2023 19:41 Pending Results Pathology Tissue Request ordered on 01/15/2023 Follow-Up Appointments Added Follow Up ?Time Frame ?Comments Rojas KAPLAN, Asma?1 to 2 weeks Post Discharge Care Discharge ?01/17/23 12:06:00 EDT Discharge Prescriptions ?ePrescribed, 01/17/23 12:06:00 EDT Home Health Face to Face ^HomeHealthFTF Results Discharge Labs BLOOD COUNT & DIFF WBC 8.0 k/mm3 ()?? 01/17/2023 07:28 RBC 4.00 m/mm3 (Low)?? 01/17/2023 07:28 Hgb 11.1 Gm/dL (Low)?? 01/17/2023 07:28 Hct 36.8 % ()?? 01/17/2023 07:28 MCV 92.0 femtoliters ()?? 01/17/2023 07:28 MCH 27.8 pg ()?? 01/17/2023 07:28 MCHC 30.2 g/dL (Low)?? 01/17/2023 07:28 Platelet Count 218 k/mm3 ()?? 01/17/2023 07:28 RDW-SD 52.1 femtoliters (High)?? 01/17/2023 07:28 MPV 10.8 femtoliters ()?? 01/17/2023 07:28 Nucleated RBC (Automated) 0.0 #/100 WBC'S ()?? 01/17/2023 07:28 Abs. NRBC 0.0 k/mm3 ()?? 01/17/2023 07:28 Abs. Neut 6.2 k/mm3 ()?? 01/16/2023 00:06 Abs. Lymph 0.6 k/mm3 (Low)?? 01/16/2023 00:06 Abs. [place] 0.1 k/mm3 (Low)?? 01/16/2023 00:06 Abs. Eo 0.1 k/mm3 ()?? 01/16/2023 00:06 Abs. Baso 0.0 k/mm3 ()?? 01/16/2023 00:06 Neut % 87.7 % (High)?? 01/16/2023 00:06 Lymph % 8.2 % (Low)?? 01/16/2023 00:06 [place] % 1.8 % (Low)?? 01/16/2023 00:06 Eos % 1.0 % ()?? 01/16/2023 00:06 Baso % 0.3 % ()?? 01/16/2023 00:06 Imm Gran 1.0 % ()?? 01/16/2023 00:06 Abs. Imm Gran 0.1 k/mm3 ()?? 01/16/2023 00:06 ?? CARDIAC High Sensitivity Troponin (HSTnT) <6 ng/L ()?? 01/16/2023 00:06 ? CHEM GENERAL Sodium 138 mmol/L ()?? 01/17/2023 09:15 Potassium HEMOLYZED mmol/L ()?? 01/17/2023 09:15 Chloride 103 mmol/L ()?? 01/17/2023 09:15 Bicarbonate Level 26 mmol/L ()?? 01/17/2023 09:15 Anion Gap 9 ()?? 01/17/2023 09:15 Glucose Level 95 mg/dL ()?? 01/17/2023 09:15 BUN 26 mg/dL (High)?? 01/17/2023 09:15 Creatinine-Blood 0.9 mg/dL ()?? 01/17/2023 09:15 Estimated GFR Creatinine 94 ML/MIN/1.73 M2 ()?? 01/17/2023 09:15 Calcium 8.8 mg/dL ()?? 01/17/2023 09:15 ?? ENDOCRINE/TUMOR MARKER Blood <1 mIU/mL ()?? 01/16/2023 00:06 ? HEME OTHER Hold Blue Top SPECIMEN DISCARDED AFTER 4 HOURS. ()?? 01/15/2023 00:06 ? VIROLOGY Influenza A PCR NEGATIVE ()?? 01/15/2023 01:29 Influenza B PCR NEGATIVE ()?? 01/15/2023 01:29 RSV PCR NEGATIVE ()?? 01/15/2023 01:29 COVID-19 PCR Specimen Source NASAL ()?? 01/15/2023 01:29 COVID-19 PCR Result NEGATIVE ()?? 01/15/2023 01:29 ? _25 ??minutes spent on discharge Patient Care team information Care Team Personnel Name: Sarah Dumont RN Position: S RN Member Role: Primary Care Nurse Name: John Frederick RN Position: S RN Member Role: Primary Care Nurse Name: Minoo Rascon RN Position: S RN Member Role: Primary Care Nurse Name: Anthony Viveros RN Position: S RN Member Role: Primary Care Nurse Name: Galen Xie MD Position: S Physician - Primary Care Member Role: PCP Address: Address[facility] [address] [place], [place] [address] RN Position: [facility] RN Member Role: Primary Care Nurse Name: Julia Sumner Position: [facility] RN Member Role: Primary Care Nurse Name: Bessie Gomes RN Position: [facility] RN Member Role: Primary Care Nurse Name: Ashlie Goodman RN Position: [facility] RN Member Role: Primary Care Nurse Name: Danielle Griffith RN Position: [facility] RN Member Role: Primary Care Nurse Name: Aneta Conte RN Position: [facility] RN Member Role: Primary Care Nurse Name: Carmelina Dunn LPN Position: [facility] RN Member Role: Primary Care Nurse Name: Janay Judd RN Position: [facility] RN Member Role: Primary Care Nurse Name: Brit Gracia RN Position: [facility] RN Member Role: Primary Care Nurse Name: Karma Miller RN Position: [facility] RN Member Role: Primary Care Nurse Name: Latricia ROSE Attending Position: [facility] ED Medicine MD Name: Sen Langley RN Position: [facility] ED RN W/OE and Tasks Member Role: Patient Care Provider Name: Leelee Benites RN Position: [facility] ED RN W/OE and Tasks Member Role: Patient Care Provider Name: Dawit Reynaga Position: [facility] ED TA [facility] Member Role: Patient Care Provider Care Team Related Persons Name: ELIZABETH REES Address: [address] [place] [address] Name: MELO KUMAR Address: home [address] [place] [address] Name: ROLAND WILLIAM Address: [address] [place] [address]
--- OUTSIDE RECORDS SUMMARY | 2023-09-23 06:11 | XMS_ITS | Continuity of Care Document ---
Author Organization [facility] ter Address [address] [place] [id number]- Care Team Providers Care Computational Linguist Name Role Phone Rojas KAPLAN, Asma Primary Care Physician Encounter [facility] Date(s): 10/18/22 - 10/19/[address] [address]- Encounter Diagnosis Ingestion of foreign substance(Final) - 10/19/22 Discharge Disposition: A-D/C Home Attending Physician: Florence Roberts MD Admitting Physician: Florence Roberts MD Referring Physician: Not on Staff, Referring [...] 10/21/21 15:28:00 EDT, Route to Pharmacy Electronically, [facility] ([id number], Partial fill upon patient request if the [...] 0 Refills, Maintenance, 10/21/21 15:24:00 EDT, Tablet, [facility] ([id number][id number], Partial fill upon patient request if the prescription is for aschedule II opioid drug., 1 tablet By Mouth Daily i... Start Date: 10/21/21 Status: Ordered cholecalciferol 2000 intl units oral capsule 1 capsule = 50 mcg, By Mouth, Daily, # 30 capsule, 0 Refills, Maintenance, 10/21/21 15:27:00 EDT, Capsule, [facility] ([id number][id number], Partial fill upon patient request if the [...] 10/21/21 15:30:00 EDT, Route to Pharmacy Electronically, [facility] ([id number][id number], Partial fill upon patient request if the prescription is for a schedule II... Start Date: 10/21/21 Stop Date: 11/20/21 Status: Ordered fluticasone 50 mcg/inh nasal spray 1 sprays = 50 mcg, Nares, Both, Daily at bedtime, # 16 Gm, 0 Refills, Maintenance, 10/21/21 15:30:00 EDT, Nasal [place], [facility] ([facility] [id number], Partial fill upon patient request if the prescription is for a schedule II opioid drug., 1 spray... Start Date: 10/21/21 Status: Ordered folic acid 1 mg oral tablet 1 mg, 1, tablet, By Mouth, Daily, # 30 tablet, Refills 0, Tot. Refills 0, Maintenance, 10/21/21 15:30:00 EDT, Route to Pharmacy Electronically, [facility] ([id number][id number], Partial fill upon patient request if the [...] 0 Refills, Maintenance, 10/21/21 15:30:00 EDT, Tablet, [facility] ([id number][id number], Partial fill upon patient request if the [...] Tablet, ; Start Date: 12/29/21 Status: Ordered Moorcroft-3 1000 mg oral capsule 1 capsule = 1,000 mg, By Mouth, 3 times a day, # 90 capsule, 0 Refills, Maintenance, 10/21/21 15:27:00 EDT, Capsule, [facility] ([id number][id number], Partial fill upon patient request if the [...] List Condition Confirmation Course Effective Dates Status [facility] Informant Anxiety Confirmed Active Autism spectrum Confirmed Active Constipation Confirmed Active Crohn disease Confirmed Active Foreign body in hypopharynx Confirmed Active Pica Confirmed Active Prader-Willi syndrome Confirmed Active Prader-Willi syndrome Confirmed Active Severe obesity Confirmed Active Results Radiology Reports * Exam Date Time Procedure Performing Provider Status 10/19/22 5:03 AM Chest 2 Views Frontal and Lat Aylin Álvarez; Farida (Verified) Notes: (Chest 2 Views Frontal and Lat) Reason For Exam: Esophageal FB clearance;Other: RESULT: Chest 2 Views Frontal and Lat Chest 2 Views Frontal and Lat Hx of Present Illness: pica and swallowed paper towels 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 FINDINGS: LINES AND TUBES: None. LUNGS AND PLEURA: Clear lungs. Normal pulmonary vascularity. Persistent accp-ft-vuchlvte elevation of the right hemidiaphragm unchanged. No pleural effusion. No pneumothorax. HEART, MEDIASTINUM AND JESSICA: Heart is normal in size. Normal mediastinal and hilar contour. BONES AND SOFT TISSUES: No acute abnormality. Mild S-shaped scoliosis thoracolumbar spine. IMPRESSION: No acute abnormality. WSN: [id number] Ordering Physician: Chalo Burden Dictated By: Prasanna Pringle MD, V Dictated Date/Time: 10/19/22 8:33 am Reviewed By: Prasanna Pringle MD, V Signed By: Prasanna Pringle MD, V Signed Date/Time: 10/19/22 8:33 am Transcribed By: ROS Transcribed Date/Time: 10/19/22 8:32 am * Exam Date Time Procedure Performing Provider Status 10/18/22 9:[address] Chest W/O Contrast Jeyson Hernandez; Auth (Verified) Notes: (CT Chest W/O Contrast) Reason For Exam: FB ingestion of paper towels, muffled voice;Other: RESULT: CT Chest W/O Contrast CT Chest W/O Contrast INDICATION: Hx of Present Illness: pica and swallowed paper towels 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 Weight-based protocol was performed using automatic exposure control. CTDIvol Body: 21.10 mGy, DLP Body: 672 mGy*cm. COMPARISON: None. FINDINGS: Director Of Religious Activities view findings, lines and tubes: None. Trachea and airways: Patent without evidence of tracheal or endobronchial lesion. Lungs and pleura: Clear lungs. No effusion or pneumothorax. Mediastinum and jessica: No mass or hematoma. No mediastinal or hilar lymphadenopathy. Esophagus appears distended with low-density heterogeneous structure consistent with history of paper talus congestion. Heart: Heart is normal in size. No pericardial effusion. Aorta: No aortic aneurysm. Pulmonary arteries: Normal caliber. Chest wall soft tissues: No acute abnormality. Diaphragm: Intact. Upper abdomen: No significant abnormality. Bones: No acute abnormality. IMPRESSION: 1. No airway abnormality. The lungs appear largely clear. 2. Esophagus appears distended with heterogeneous material consistent with history of the patellofemoral congestion. WSN: [id number] Ordering Physician: Chalo Burden Dictated By: Juan Denney MD Dictated Date/Time: 10/18/22 9:37 pm Reviewed By: Juan Denney MD Signed By: Juan Denney MD Signed Date/Time: 10/18/22 9:37 pm Transcribed By: ROS Transcribed Date/Time: 10/18/22 9:35 pm Vital Signs Most recent to oldest [Reference Range]: 1 2 3 Height 159 cm (10/19/22 7:42 AM) 159 cm (10/19/22 4:50 AM) 159 cm (10/18/22 7:21 PM) Oxygen Saturation [94-100 %] 98 % (10/19/22 7:42 AM) 92 % *L* (10/19/22 4:50 AM) 97 % (10/18/22 8:28 PM) Pulse Rate [55-90 bpm] 66 bpm (10/19/22 7:42 AM) 64 bpm (10/19/22 4:50 AM) 72 bpm (10/18/22 8:28 PM) Blood Pressure [90-138/55-84 mm Hg] 133/74mm Hg (10/19/22 7:42 AM) 144/96mm Hg *H* (10/19/22 4:50 AM) 128/86mm Hg (10/18/22 8:28 PM) Respiratory Rate [16-30 br/min] 18 br/min (10/19/22 7:42 AM) 20 br/min (10/19/22 4:50 AM) 16 br/min (10/18/22 8:28 PM) Temperature [96.8-100.4 DegF] 97.7 DegF (10/19/22 4:50 AM) Mode of Delivery (Oxygen) Room air (10/19/22 7:42 AM) Room air (10/19/22 4:50 AM) Room air (10/18/22 8:28 PM) Blood pressure sites Arm, left (10/19/22 7:42 AM) Arm, right (10/19/22 4:50 AM) Arm, right (10/18/22 8:28 PM) Temperature Route Oral (10/19/22 4:50 AM) Oral (10/18/22 7:21 PM) Dry Weight 104 kg (10/19/22 7:42 AM) 104 kg (10/19/22 4:50 AM) 104 kg (10/18/22 7:21 PM) Dry Weight Obtained Via Standing scale (10/18/22 7:21 PM) Social History Social History Type Response Smoking Status Never (less than 100 in lifetime) entered on: 09/17/20 Sex Female History and physical note * Amandeep Ruff MD: VERIFY, PERFORM, MODIFY, SIGN Event Display: History and Physical Hospital Authored Date: Patient: ADILENE MATHEWS Age: 27 years Sex: Female : 1995 Associated Diagnoses: None Author: Amandeep Ruff MD Admission Information Consultation requested by: ED provider Consulted physician: Dr. Fonseca Reason for consultation: airway obstruction (swallowed toilet paper) History of Present Illness 27 YOF with Praneely who swallowed papertowel staff reports that he took a water paper towels stuffed in her mouth refused to spit it out then used her fingers to push it down into her esophagus prompting transportation to [facility] for further evaluation. Upon the emergency department's evaluation she did have slightly muffled sounds but was able to articulate speak in full sentences and there is no visual object within her oropharynx. Additionally she did not have copious secretions at this time. As there is concern for an emergent obstruction of her airway a trauma surgery consultation was placed. Upon my evaluation the patient was resting comfortably satting 100% on room air, no evidence of copious secretions or airway obstruction. As there is no evidence of upper airway obstruction we will move forward with obtaining a stat CT chest. Past Medical History Problem list All Problems Anxiety / SNOMED CT 17289945 / Confirmed Autism spectrum / SNOMED CT 8879559979 / Confirmed Constipation / SNOMED CT 71874635 / Confirmed Crohn disease / SNOMED CT 31756201 / Confirmed Dermatitis / SNOMED CT 9204725219 / Provisional Foreign body in hypopharynx / SNOMED CT 7048810 / Confirmed Foreign body ingestion / SNOMED CT 35147196 / Provisional Pica / SNOMED CT 89006658 / Confirmed Prader-Willi syndrome / SNOMED CT 460331384 / Confirmed Prader-Willi syndrome / SNOMED CT 533527531 / Confirmed Severe obesity / SNOMED CT 8153563413 / Confirmed Resolved: Obese class II / SNOMED CT 622182311248916 select into nl: where @patientid:1 = @patientid:1 [...] 10/21/21 15:30:00 EDT, Route to Pharmacy Electronically, [facility], Partial fill upon patient request if the prescription is for a schedule II... Moorcroft-3 1000 mg oral capsule: 1 capsule = 1,000 mg, By Mouth, 3 times a day, # 90 capsule, 0 Refills, Maintenance, 10/21/21 15:27:00 EDT, Capsule, [facility], Partial fill upon patient request if the prescription is for a schedule II opioid drug., 152.4, cm... atenolol 25 mg oral tablet: 25 mg, 1, tablet, By Mouth, Daily, # 30 tablet, Refills 0, Tot. Refills0, Maintenance, 10/21/21 15:28:00 EDT, Route to Pharmacy Electronically, [facility], Partial fill upon patient request if the prescription is for a schedul... calcium (as citrate)-vitamin D 200 mg-250 intl units oral tablet: 1 tablet, By Mouth, Daily in AM, # 30 tablet, 0 Refills, Maintenance, 10/21/21 15:24:00 EDT, Tablet, [place] [address], Partial fill upon patient request if the prescription is for a schedule II opioid drug., 1 tablet By Mouth Daily i... cholecalciferol 2000 intl units oral capsule: 1 capsule = 50 mcg, By Mouth, Daily, # 30 capsule, 0 Refills, Maintenance, 10/21/21 15:27:00 EDT, Capsule, [facility], Partial fill upon patient request if the prescription is for a schedule II opioid drug., 152.4, cm, 10/21/21... fluticasone 50 mcg/inh nasal spray: 1 sprays = 50 mcg, Nares, Both, Daily at bedtime, # 16 Gm, 0 Refills, Maintenance, 10/21/21 15:30:00 EDT, Nasal [place], [place] [address], Partial fill upon patient request if the prescription is for a schedule II opioid drug., 1 spray... folic acid 1 mg oral tablet: 1 mg, 1, tablet, By Mouth, Daily, # 30 tablet, Refills 0, Tot. Refills0, Maintenance, 10/21/21 15:30:00 EDT, Route to Pharmacy Electronically, [place] [address], Partial fill upon patient request if the prescription is for a schedule... mercaptopurine 50 mg oral tablet: 1 tablet = 50 mg, By Mouth, Daily, # 30 tablet, 0 Refills, Maintenance, 10/21/21 15:30:00 EDT, Tablet, [place] [address], Partial fill upon patient request if the [...] ITCHING Surgical History Procedure/Surgical Profile Flexible bronchoscopy ([id number]) on 07/05/2022 at 27 Years. Bronchoscopy with removal of foreign body ([id number]) on 07/05/2022 at 27 Years. Esophagogastroduodenoscopy ([id number]) on 02/23/2022 at 26 Years. EGD - Esophagogastroduodenoscopy ([id number]) on 10/16/2021 at 26 Years. 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 Weight-based protocol was performed using automatic exposure control. CTDIvol Body: 21.10 mGy, DLP Body: 672 mGy*cm. COMPARISON: None. FINDINGS: Director Of Religious Activities view findings, lines and tubes: None. Trachea and airways: Patent without evidence of tracheal or endobronchial lesion. Lungs and pleura: Clear lungs. No effusion or pneumothorax. Mediastinum and jessica: No mass or hematoma. No mediastinal or hilar lymphadenopathy. Esophagus appears distended with low-density heterogeneous structure consistent with history of paper talus congestion. Heart: Heart is normal in size. No pericardial effusion. Aorta: No aortic aneurysm. Pulmonary arteries: Normal caliber. Chest wall soft tissues: No acute abnormality. Diaphragm: Intact. Upper abdomen: No significant abnormality. Bones: No acute abnormality. IMPRESSION: 1. No airway abnormality. The lungs appear largely clear. 2. Esophagus appears distended with heterogeneous material consistent with history of the patellofemoral congestion. WSN: [id number] Impression and Plan Samina is a 27-year-old female with intellectual disability and known Prader- Willi syndrome, whotoday at her facility was witnessed swallowing a ball of paper towel despite encouragement from staff she refused to spit it out and eventually pushed the ball of paper towel into her esophagus with her fingers. Upon assessment here in the emergency department there appeared to be no acute airway compromise thus we will move forward with imaging CT chest showed no airway abnormality in the lungs appeared largely clear, the esophagus appeared distended with heterogeneous material consistent withthe described swallowed object. As there was no acute airway compromise and the bolus of paper towel had moved into the esophagus no acute goal intervention is warranted. At this time we would recommend serial imaging to assess the progression of the paper towel bolus, and if it appears to remain lodged and or she has difficulty managing her secretions she will need GI consultation for an EGD andpossible removal of the paper towel. Recommendations ??? Serial imaging to assess progression of the swallowed paper towel ??? If paper towel does not progress into the stomach, consider GI consultation for upper endoscopy ??? No acute surgical intervention indicated at this time ??? Trauma surgery to sign off With questions please reach out to the trauma surgery service [id number] This patient was discussed with Dr. Che This patient was discussed with Dr. Fonseca Patient Care team information Care Team Personnel Name: John Frederick RN Position: [facility] RN Member Role: Primary Care Nurse Name: Minoo Rascon RN Position: [facility] RN Member Role: Primary Care Nurse Name: Anthony Viveros RN Position: [facility] RN Member Role: Primary Care Nurse Name: Galen Xie MD Position: [facility] Physician - Primary Care Member Role: PCP Address: Address: [address] [place], [place] - [place] Name: Charla Galindo RN Position: [facility] RN Member Role: Primary Care Nurse Name: Julia Sumner Position: [facility] RN Member Role: Primary Care Nurse Name: Bessie Gomes RN Position: [facility] RN Member Role: Primary Care Nurse Name: Ashlie Goodman RN Position: [facility] RN Member Role: Primary Care Nurse Name: Danielle Griffith RN Position: [facility] RN Member Role: Primary Care Nurse Name: Aneta Conte RN Position: [facility] RN Member Role: Primary Care Nurse Name: Carmelina Dunn LPN Position: [facility] RN Member Role: Primary Care Nurse Name: Janay Judd RN Position: [facility] RN Member Role: Primary Care Nurse Name: Brit Gracia RN Position: [facility] RN Member Role: Primary Care Nurse Name: Karma Miller RN Position: [facility] RN Member Role: Primary Care Nurse Name: Aniyah Bahena NP Position: [facility] Associate Professional Member Role: ED Physician Weight Training Instructor Address: Address: [address] [place] [id number]- [place] Name: Dulce Sutton Position: [facility] ED TA [facility] Name: Florence Roberts MD Position: [facility] Resident Member Role: Admitting Physician Address: Address: [address] [place] [id number]- [place] Name: Breanne Holman RN Position: [facility] ED RN W/OE and Tasks Member Role: Patient Care Provider Care Team Related Persons Name: ELIZABETH REES Address: home [address] [place] [address] Name: MELO KUMAR Address: home [address] [place] [address] Name: ROLAND WILLIAM Address: home [address] [address]
--- OUTSIDE RECORDS SUMMARY | 2023-09-23 06:11 | XMS_ITS | Continuity of Care Document ---
Author Organization [facility] ter Address [address] [place] [id number]- Care Team Providers Care All Source Analyst Name Role Phone Rojas KAPLAN, Asma Primary Care Physician Encounter [facility] Date(s): 04/12/22 - 04/12/[address] [address]- Discharge Disposition: A-D/C Home Attending Physician: Justice Bates MD Admitting Physician: Justice Bates MD Referring Physician: Not on Staff, Referring [...] 10/21/21 15:28:00 EDT, Route to Pharmacy Electronically, [facility]-71698, Partial fill upon patient request if the prescription is for a schedule... Start Date: 10/21/21 Status: Ordered atenolol 25 mg oral tablet 25 mg, 1, tablet, By Mouth, Daily, # 30 tablet, Refills 0, Tot. Refills 0, Maintenance, 10/21/21 15:28:00 EDT, Route to Pharmacy Electronically, [facility]-44639, Partial fill upon patient request if the prescription is for a schedul... Start Date: 10/21/21 Status: Ordered calcium (as citrate)-vitamin D 200 mg-250 intl units oral tablet 1 tablet, By Mouth, Daily in AM, # 30 tablet, 0 Refills, Maintenance, 10/21/21 15:24:00 EDT, Tablet, [facility]82912, Partial fill upon patient request if the prescription is for aschedule II opioid drug., 1 tablet By Mouth Daily i... Start Date: 10/21/21 Status: Ordered cholecalciferol 2000 intl units oral capsule 1 capsule = 50 mcg, By Mouth, Daily, # 30 capsule, 0 Refills, Maintenance, 10/21/21 15:27:00 EDT, Capsule, [facility]-30752, Partial fill upon patient request if the [...] 10/21/21 15:30:00 EDT, Route to Pharmacy Electronically, [facility]-33997, Partial fill upon patient request if the prescription is for a schedule II... Start Date: 10/21/21 Stop Date: 11/20/21 Status: Ordered fluticasone 50 mcg/inh nasal spray 1 sprays = 50 mcg, Nares, Both, Daily at bedtime, # 16 Gm, 0 Refills, Maintenance, 10/21/21 15:30:00 EDT, Nasal [place], [facility]- 59217, Partial fill upon patient request if the prescription is for a schedule II opioid drug., 1 spray... Start Date: 10/21/21 Status: Ordered folic acid 1 mg oral tablet 1 mg, 1, tablet, By Mouth, Daily, # 30 tablet, Refills 0, Tot. Refills 0, Maintenance, 10/21/21 15:30:00 EDT, Route to Pharmacy Electronically, [facility]-27369, Partial fill upon patient request if the [...] 0 Refills, Maintenance, 10/21/21 15:30:00 EDT, Tablet, [facility]-61108, Partial fill upon patient request if the [...] Tablet, ; Start Date: 12/29/21 Status: Ordered [place]-3 1000 mg oral capsule 1 capsule = 1,000 mg, By Mouth, 3 times a day, # 90 capsule, 0 Refills, Maintenance, 10/21/21 15:27:00 EDT, Capsule, [facility]-54219, Partial fill upon patient request if the prescription is for a schedule II opioid drug., 152.4, cm... Start Date: 10/21/21 Stop Date: 11/20/21 Status: Ordered Saline Nasal Mist 2 spays, Nares, Both, Every 12 hours, PRN as needed for dry nasal passages, Maintenance, 01/08/22 7:53:00 EDT, ; Start Date: 01/08/22 Status: Ordered silver sulfADIAZINE 1% topical cream /4 ribbon, Topically, Daily at bedtime, FOR VAGINAL [...] [Reference Range]: 1 Oxygen Saturation [94-100 %] 97 % (04/12/22 6:41 PM) Pulse Rate [55-90 bpm] 86 bpm (04/12/22 6:41 PM) Blood Pressure [90-138/55-84 mm Hg] 153/ 96mm Hg *H* (04/12/22 6:41 PM) Respiratory Rate [16-30 br/min] 20 br/mi n (04/12/22 6:41 PM) Temperature [96.8-100.4 DegF] 98.2 DegF (04/12/22 6:41 PM) Mode of Delivery (Oxygen) Room air (04/12/22 6:41 PM) Blood pressure sites Arm, right (04/12/22 6:41 PM) Temperature Route Oral (04/12/22 6:41 PM) Social History Social History Type Response Smoking Status Never (less than 100 in lifetime) entered on: 09/17/20 Sex Consult note * Celina Swann MD: PERFORM, SIGN, VERIFY Event Display: Consult Authored Date: [id number] Patient: ADILENE MATHEWS Age: 27 years Sex: Female : 1995 Associated Diagnoses: None Author: Celina Swann MD Review of Systems Review of Systems Cardiovascular: no chest pain. Physical Examination Vital Signs CC: Foreign body HPI: 27 yo with h/o pica presents after swallowing bottle cap around 5pm. Feels it stuck in throat.Has been protecting weekend. Muffled voice. Per my request, started on nebulized lidocaine in ED. Past Medical History Problem list All Problems (Selected) Foreign body ingestion / SNOMED CT 37578621 / Provisional Severe obesity / SNOMED CT 2536803569 / Confirmed Prader-Willi syndrome / SNOMED CT 290180587 / Confirmed Prader-Willi syndrome / SNOMED CT 394485297 / Confirmed Pica / SNOMED CT 06771980 / Confirmed Dermatitis / SNOMED CT 0589666990 / Provisional Foreign body in hypopharynx / SNOMED CT 0751869 / Confirmed Crohn disease / SNOMED CT 92701640 / Confirmed Constipation / SNOMED CT 65765322 / Confirmed Autism spectrum / SNOMED CT 6047822607 / Confirmed Anxiety / SNOMED CT 08278018 / Confirmed PE: Awake, NAD Satting high 80s, no increased WOB No stridor, stertor, drooling OC/OP clear, foreign body not visible transorally Procedure: Flexible fiberoptic laryngoscopy, removal of foreign body Scope was advanced through oral cavity. Red bottle cap lodged posterior to epiglottis. Under directvisualization, bottle cap grasped by Dr. Spence from Anesthesia and removed in well-controlled maneuver. Patient tolerating well. AP: S/p flexible laryngoscopy and removal of foreign body in conjunction with Anesthesia. No complications. Patient tolerated well. Signed: Celina Swann Note * Montse Tapia MD: PERFORM Event Display: Patient Education Leaflets Authored Date: [id number] Swallowed Foreign Body (Adult) ?? [id number] Swallowed Foreign Body (Adult) Indigestible objects (foreign [...] faintness ?? Last Reviewed Date: 2022 ?? [id number] [employer]. All rights reserved. This information is not intended as a substitute for professional medical care. Always follow your healthcare professional's instructions. ?? Patient Care team information Care Team Personnel Name: John Frederick RN Position: [facility] RN Member Role: Primary Care Nurse Name: Atnhony Viveros RN Position: [facility] RN Member Role: Primary Care Nurse Name: Galen Xie MD Position: [facility] Physician (General Medicine) Member Role: PCP Address: Address: [address] [place] [address]- [place] Name: Bessie Gomes RN Position: [facility] RN Member Role: Primary Care Nurse Name: Ashlie Goodman RN Position: [facility] RN Member Role: Primary Care Nurse Name: Danielle Griffith RN Position: [facility] RN Member Role: Primary Care Nurse Name: Aneta Conte RN Position: [facility] RN Member Role: Primary Care Nurse Name: Carmelina Dunn LPN Position: [facility] RN Member Role: Primary Care Nurse Name: Janay Judd RN Position: [facility] RN Member Role: Primary Care Nurse Name: Brit Gracia RN Position: [facility] RN Member Role: Primary Care Nurse Name: Karma Miller Position: [facility] RN Member Role: Primary Care Nurse Name: Karla Hill RN Position: [facility] ED RN W/OE and Tasks Member Role: Patient Care Provider Name: Montse Tapia MD Position: [facility] Resident Member Role: ED Resident Address: Address: [address] [place] [address] [place] [address]- Name: Justice Bates MD Position: [facility] ED Medicine MD Member Role: Admitting Physician Address: Address: [address] [place] [address] Department [place] [address]- Name: Angy Lora RN Position: [facility] ED RN W/OE and Tasks Name: Ambar Melvin Position: [facility] ED TA [facility] Care Team Related Persons Name: ELIZABETH REES Address: [place] [address] [address] Name: ROLAND WILLIAM Address: [address] [place] [address]
--- OUTSIDE RECORDS SUMMARY | 2023-09-23 06:11 | XMS_ITS | Continuity of Care Document ---
Author Organization [facility] ter Address [address] [place] [address]- Care Team Providers Care Field Service Technician Poultry Name Role Phone Rojas KAPLAN, Asma Primary Care Physician [phone] Encounter [facility] Date(s): 05/09/22 - 05/09/[address] [address]- Discharge Disposition: A-D/C Home Attending Physician: Fermin Phelan MD Admitting Physician: Fermin Phelan MD Referring Physician: Not on Staff, Referring [...] 10/21/21 15:28:00 EDT, Route to Pharmacy Electronically, [facility]-15209, Partial fill upon patient request if the prescription is for a schedule... Start Date: 10/21/21 Status: Ordered atenolol 25 mg oral tablet 25 mg, 1, tablet, By Mouth, Daily, # 30 tablet, Refills 0, Tot. Refills 0, Maintenance, 10/21/21 15:28:00 EDT, Route to Pharmacy Electronically, [facility]-04191, Partial fill upon patient request if the prescription is for a schedul... Start Date: 10/21/21 Status: Ordered calcium (as citrate)-vitamin D 200 mg-250 intl units oral tablet 1 tablet, By Mouth, Daily in AM, # 30 tablet, 0 Refills, Maintenance, 10/21/21 15:24:00 EDT, Tablet, [facility]-80397, Partial fill upon patient request if the prescription is for aschedule II opioid drug., 1 tablet By Mouth Daily i... Start Date: 10/21/21 Status: Ordered cholecalciferol 2000 intl units oral capsule 1 capsule = 50 mcg, By Mouth, Daily, # 30 capsule, 0 Refills, Maintenance, 10/21/21 15:27:00 EDT, Capsule, [facility]-62314, Partial fill upon patient request if the [...] 10/21/21 15:30:00 EDT, Route to Pharmacy Electronically, [facility]-29746, Partial fill upon patient request if the prescription is for a schedule II... Start Date: 10/21/21 Stop Date: 11/20/21 Status: Ordered fluticasone 50 mcg/inh nasal spray 1 sprays = 50 mcg, Nares, Both, Daily at bedtime, # 16 Gm, 0 Refills, Maintenance, 10/21/21 15:30:00 EDT, Nasal [place], [facility]- 64453, Partial fill upon patient request if the prescription is for a schedule II opioid drug., 1 spray... Start Date: 10/21/21 Status: Ordered folic acid 1 mg oral tablet 1 mg, 1, tablet, By Mouth, Daily, # 30 tablet, Refills 0, Tot. Refills 0, Maintenance, 10/21/21 15:30:00 EDT, Route to Pharmacy Electronically, [facility]-16076, Partial fill upon patient request if the [...] 0 Refills, Maintenance, 10/21/21 15:30:00 EDT, Tablet, [facility]-86447, Partial fill upon patient request if the [...] Tablet, ; Start Date: 12/29/21 Status: Ordered [place]-3 1000 mg oral capsule 1 capsule = 1,000 mg, By Mouth, 3 times a day, # 90 capsule, 0 Refills, Maintenance, 10/21/21 15:27:00 EDT, Capsule, [facility]-46382, Partial fill upon patient request if the [...] Exam Date Time Procedure Performing Provider Status 05/09/22 1:53 PM Abdomen AP Dawit Monzon; Farida ( Verified) Notes: (Abdomen AP) Reason For Exam: Foreign Body RESULT: XR Abdomen AP XR Abdomen AP 1 view INDICATION/CLINICAL QUESTION: Hx of Present Illness: [facility]; Reason: Foreign Body; Clinical Question(s): Foreign Body; Special Instructions: Flat COMPARISON: None FINDINGS: No radiopaque foreign body. Normal bowel gas pattern. No evidence of obstruction. No evidence of pneumoperitoneum. No organomegaly, masses or calcifications. No acute bone findings. IMPRESSION: No radiopaque foreign body. WSN: [id number] Ordering Physician: Amina Mahan Dictated By: Man Rockwell MD Dictated Date/Time: 05/09/22 1:59 pm Reviewed By: Man Rockwell MD Signed By: Man Rockwell MD Signed Date/Time: 05/09/22 1:59 pm Transcribed By: ROS Transcribed Date/Time: 05/09/22 1:59 pm * Exam Date Time Procedure Performing Provider Status 05/09/22 12:41 PM Neck Soft Tissue Kayleen Montenegro; Aut h (Verified) Notes: (Neck Soft Tissue) Reason For Exam: Foreign Body RESULT: Neck Soft Tissue Chest 2 Views Frontal and Lat, Neck Soft Tissue , 2 views Hx of Present Illness: Swallowed tooth paste cap [facility]; Reason: Foreign Body; Clinical Question(s): Foreign Body COMPARISON: None. FINDINGS: No radiopaque foreign body. LINES AND TUBES: None. LUNGS AND PLEURA: Very low lung volumes which results in crowding of the central bronchovascular markings. No confluent pulmonary opacities. No pleural effusion. No pneumothorax. HEART, MEDIASTINUM AND ROSA MARIA: Heart is normal in size. Normal mediastinal and hilar contour. BONES AND SOFT TISSUES: No acute abnormality. IMPRESSION: No radiopaque foreign body. WSN: [id number] Ordering Physician: Amina Mahan Dictated By: Man Rockwell MD Dictated Date/Time: 05/09/22 1:04 pm Reviewed By: Man Rockwell MD Signed By: Man Rockwell MD Signed Date/Time: 05/09/22 1:04 pm Transcribed By: ROS Transcribed Date/Time: 05/09/22 1:03 pm * Exam Date Time Procedure Performing Provider Status 05/09/22 12:41 PM Chest 2 Views Frontal and Lat Kayleen Montenegro; Farida (Verified) Notes: (Chest 2 Views Frontal and Lat) Reason For Exam: Foreign Body RESULT: Chest 2 Views Frontal and Lat Chest 2 Views Frontal and Lat, Neck Soft Tissue , 2 views Hx of Present Illness: [facility]; Reason: Foreign Body; Clinical Question(s): Foreign Body COMPARISON: None. FINDINGS: No radiopaque foreign body. LINES AND TUBES: None. LUNGS AND PLEURA: Very low lung volumes which results in crowding of the central bronchovascular markings. No confluent pulmonary opacities. No pleural effusion. No pneumothorax. HEART, MEDIASTINUM AND ROSA MARIA: Heart is normal in size. Normal mediastinal and hilar contour. BONES AND SOFT TISSUES: No acute abnormality. IMPRESSION: No radiopaque foreign body. WSN: [id number] Ordering Physician: Amina Mahan Dictated By: Man Rockwell MD Dictated Date/Time: 05/09/22 1:04 pm Reviewed By: Man Rockwell MD Signed By: Man Rockwell MD Signed Date/Time: 05/09/22 1:04 pm Transcribed By: ROS Transcribed Date/Time: 05/09/22 1:03 pm Vital Signs Most recent to oldest [Reference Range]: 1 2 3 Oxygen Saturation [94-100 %] 96 % (05/09/22 3:16 PM) 94 % (05/09/22 1:22 PM) 93 % *L* (05/09/22 11:24 AM) Pulse Rate [55-90 bpm] 87 bpm (05/09/22 3:16 PM) 80 bpm (05/09/22 1:22 PM) 66 bpm (05/09/22 11:24 AM) Blood Pressure [90-138/55-84 mm Hg] 103/74mm Hg (05/09/22 3:16 PM) 128/73mm Hg (05/09/22 1:22 PM) 138/84mm Hg (05/09/22 11:24 AM) Respiratory Rate [16-30 br/min] 16 br/min (05/09/22 3:16 PM) 16 br/min (05/09/22 1:22 PM) 18 br/min (05/09/22 11:24 AM) Temperature [96.8-100.4 DegF] 98.1 DegF (05/09/22 10:22 AM) Mode of Delivery (Oxygen) Room air (05/09/22 3:16 PM) Room air (05/09/22 1:22 PM) Room air (05/09/22 11:24 AM) Blood pressure sites Arm, left (05/09/22 3:16 PM) Arm, left (05/09/22 1:22 PM) Arm, left (05/09/22 11:24 AM) Temperature Route Oral (05/09/22 10:22 AM) Social History Social History Type Response Smoking Status Never (less than 100 in lifetime) entered on: 09/17/20 Sex Note * Amina Mahan MD: PERFORM Event Display: Patient Education Leaflets Authored Date: [id number] Swallowed Foreign Body (Adult) ?? [id number] Swallowed Foreign Body (Adult) Indigestible objects (foreign [...] ?? Last Reviewed Date: 2022 ?? [employer]. All rights reserved. This information is not intended as a substitute for professional medical care. Always follow your healthcare professional's instructions. ?? * [facility]SPowerscribe , CIS S: TRANSCRIBE Man Rockwell MD: VERIFY Event Display: Result: Authored Date: [id number] Chest 2 Views Frontal and Lat, Neck Soft Tissue , 2 views Hx of Present Illness: Sw[facility]; Reason: Foreign Body; Clinical Question(s): Foreign Body COMPARISON: None. FINDINGS: No radiopaque foreign body. LINES AND TUBES: None. LUNGS AND PLEURA: Very low lung volumes which results in crowding of the central bronchovascular markings. No confluent pulmonary opacities. No pleural effusion. No pneumothorax. HEART, MEDIASTINUM AND ROSA MARIA: Heart is normal in size. Normal mediastinal and hilar contour. BONES AND SOFT TISSUES: No acute abnormality. IMPRESSION: No radiopaque foreign body. WSN: [id number] Ordering Physician: Amina Mahan Dictated By: Man Rockwell MD Dictated Date/Time: 05/09/22 1:04 pm Reviewed By: Man Rockwell MD Signed By: Man Rockwell MD Signed Date/Time: 05/09/22 1:04 pm Transcribed By: ROS Transcribed Date/Time: 05/09/22 1:03 pm * [facility] , CIS S: TRANSCRIBE Man Rockwell MD: VERIFY Event Display: Result: Authored Date: [id number] Chest 2 Views Frontal and Lat, Neck Soft Tissue , 2 views Hx of Present Illness: Sw[facility] cap [facility]; Reason: Foreign Body; Clinical Question(s): Foreign Body COMPARISON: None. FINDINGS: No radiopaque foreign body. LINES AND TUBES: None. LUNGS AND PLEURA: Very low lung volumes which results in crowding of the central bronchovascular markings. No confluent pulmonary opacities. No pleural effusion. No pneumothorax. HEART, MEDIASTINUM AND ROSA MARIA: Heart is normal in size. Normal mediastinal and hilar contour. BONES AND SOFT TISSUES: No acute abnormality. IMPRESSION: No radiopaque foreign body. WSN: [id number] Ordering Physician: Amina Mahan Dictated By: Man Rockwell MD Dictated Date/Time: 05/09/22 1:04 pm Reviewed By: Man Rockwell MD Signed By: Man Rockwell MD Signed Date/Time: 05/09/22 1:04 pm Transcribed By: ROS Transcribed Date/Time: 05/09/22 1:03 pm XR Abdomen AP * BHSPowerjosette , CIS S: TRANSCRIBE Man Rockwell MD: VERIFY Event Display: Result: Authored Date: [id number] XR Abdomen AP 1 view INDICATION/CLINICAL QUESTION: Hx of Present Illness: Sw[facility]; Reason: Foreign Body; Clinical Question(s): Foreign Body; Special Instructions: Flat COMPARISON: None FINDINGS: No radiopaque foreign body. Normal bowel gas pattern. No evidence of obstruction. No evidence of pneumoperitoneum. No organomegaly, masses or calcifications. No acute bone findings. IMPRESSION: No radiopaque foreign body. WSN: [id number] Ordering Physician: Amina Mahan Dictated By: Man Rockwell MD Dictated Date/Time: 05/09/22 1:59 pm Reviewed By: Man Rockwell MD Signed By: Man Rockwell MD Signed Date/Time: 05/09/22 1:59 pm Transcribed By: ROS Transcribed Date/Time: 05/09/22 1:59 pm Patient Care team information Care Team Personnel Name: John Frederick RN Position: [facility] RN Member Role: Primary Care Nurse Name: Anthony Viveros RN Position: [facility] RN Member Role: Primary Care Nurse Name: Galen Xie MD Position: [facility] Physician (General Medicine) Member Role: PCP Address: Address: [address] Name: Bessie Gomes RN Position: [facility] RN Member Role: Primary Care Nurse Name: Ashlie Goodman RN Position: [facility] ED RN W/OE and Tasks Member Role: Primary Care Nurse Name: Danielle Griffith RN Position: [facility] RN Member Role: Primary Care Nurse Name: Aneta Conte RN Position: [facility] RN Member Role: Primary Care Nurse Name: Carmelina Dunn LPN Position: [facility] RN Member Role: Primary Care Nurse Name: Janay Judd RN Position: S RN Member Role: Primary Care Nurse Name: Brit Gracia RN Position: S RN Member Role: Primary Care Nurse Name: Karma Miller Position: S RN Member Role: Primary Care Nurse Name: Kandy Scott RN Position: [facility] ED RN W/OE and Tasks Member Role: Patient Care Provider Name: Amnia Mahan MD Position: S Resident Member Role: ED Resident Address: Address: [address] [place] [address] [place] [address]- Name: Fermin Phelan MD Position: [facility] ED Medicine MD Member Role: Admitting Physician Address: Address: [address] [place] [address] [place] [address]- [place] Care Team Related Persons Name: NEGRITA ELIZABETH Address: [address] [place] [address] Name: ROLAND WILLIAM Address: [address] [place] [address]
--- OUTSIDE RECORDS SUMMARY | 2023-09-23 06:12 | XMS_ITS | Continuity of Care Document ---
Author Organization [facility] Address [address] [place] [phone]- Care Team Providers Care Coater Name Role Phone Rojas KAPLAN, Asma Primary Care Physician Encounter [facility] [place] Date(s): 02/02/22 - 03/04/22 [facility] [address] [place] [id number]- [place] Allergies, Adverse Reactions, Alerts Substance Reaction Severity [...] 10/21/21 15:28:00 EDT, Route to Pharmacy Electronically, [facility], [place], operated [id number], Partial fill upon patient request if the prescription is for a schedule... Start Date: 10/21/21 Status: Ordered atenolol 25 mg oral tablet 25 mg, 1, tablet, By Mouth, Daily, # 30 tablet, Refills 0, Tot. Refills 0, Maintenance, 10/21/21 15:28:00 EDT, Route to Pharmacy Electronically, [facility], [place], operated [id number], Partial fill upon patient request if the prescription is for a schedul... Start Date: 10/21/21 Status: Ordered calcium (as citrate)-vitamin D 200 mg-250 intl units oral tablet 1 tablet, By Mouth, Daily in AM, # 30 tablet, 0 Refills, Maintenance, 10/21/21 15:24:00 EDT, Tablet, [facility], [place], operated [id number], Partial fill upon patient request if the prescription is for aschedule II opioid drug., 1 tablet By Mouth Daily i... Start Date: 10/21/21 Status: Ordered cholecalciferol 2000 intl units oral capsule 1 capsule = 50 mcg, By Mouth, Daily, # 30 capsule, 0 Refills, Maintenance, 10/21/21 15:27:00 EDT, Capsule, [facility], [place], operated [id number], Partial fill upon patient request if the [...] 10/21/21 15:30:00 EDT, Route to Pharmacy Electronically, [facility], [place], operated [id number], Partial fill upon patient request if the prescription is for a schedule II... Start Date: 10/21/21 Stop Date: 11/20/21 Status: Ordered fluticasone 50 mcg/inh nasal spray 1 sprays = 50 mcg, Nares, Both, Daily at bedtime, # 16 Gm, 0 Refills, Maintenance, 10/21/21 15:30:00 EDT, Nasal [place], [facility] [place], [facility]- [id number], Partial fill upon patient request if the prescription is for a schedule II opioid drug., 1 spray... Start Date: 10/21/21 Status: Ordered folic acid 1 mg oral tablet 1 mg, 1, tablet, By Mouth, Daily, # 30 tablet, Refills 0, Tot. Refills 0, Maintenance, 10/21/21 15:30:00 EDT, Route to Pharmacy Electronically, [facility], [place], operated [id number], Partial fill upon patient request if the [...] 0 Refills, Maintenance, 10/21/21 15:30:00 EDT, Tablet, [facility] [place], [facility]-[id number], Partial fill upon patient request if the [...] Tablet, ; Start Date: 12/29/21 Status: Ordered [place]-3 1000 mg oral capsule 1 capsule = 1,000 mg, By Mouth, 3 times a day, # 90 capsule, 0 Refills, Maintenance, 10/21/21 15:27:00 EDT, Capsule, [facility] [place], [facility]-[id number], Partial fill upon patient request if the [...] syndrome Confirmed Active Severe obesity Confirmed Active Social History Social History Type Response Smoking Status Never (less than 100 in lifetime) entered on: 09/17/20 Sex Patient Care team information Care Team Personnel Name: John Frederick RN Position: S RN Member Role: Primary Care Nurse Name: Anthony Viveros RN Position: S RN Member Role: Primary Care Nurse Name: Galen Xie MD Position: [facility] Physician (General Medicine) Member Role: PCP Address: Address: [address] Name: Bessie Gomes RN Position: S RN Member Role: Primary Care Nurse Name: Ashlie Goodman RN Position: S RN Member Role: Primary Care Nurse Name: Man Lucero RN Position: S RN Member Role: Primary [...] S RN Member Role: Primary Care Nurse Care Team Related Persons Name: ELIZABETH REES Address: home [address] [place] [phone] Name: ROLAND WILLIAM Address: [address] [address]
--- OUTSIDE RECORDS SUMMARY | 2023-09-23 06:12 | XMS_ITS | Continuity of Care Document ---
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 Name Role Phone Rojas KAPLAN, Asma Primary Care Physician Encounter [facility] [place] Date(s): 04/29/23 - 05/29/23 [facility] [address] [place] [phone]- [place] Allergies, Adverse Reactions, Alerts Substance Reaction [...] 10/21/21 15:28:00 EDT, Route to Pharmacy Electronically, [place] [id number], Partial fill upon patient request if the [...] 0 Refills, Maintenance, 10/21/21 15:24:00 EDT, Tablet, [facility]-[id number], Partial fill upon patient request if the prescription is for aschedule II opioid drug., 1 tablet By Mouth Daily i... Start Date: 10/21/21 Status: Ordered cholecalciferol 2000 intl units oral capsule 1 capsule = 50 mcg, By Mouth, Daily, # 30 capsule, 0 Refills, Maintenance, 10/21/21 15:27:00 EDT, Capsule, [facility]-[id number], Partial fill upon patient request if the [...] 10/21/21 15:30:00 EDT, Route to Pharmacy Electronically, [facility]-[id number], Partial fill upon patient request if the prescription is for a schedule II... Start Date: 10/21/21 Stop Date: 11/20/21 Status: Ordered fluticasone 50 mcg/inh nasal spray 1 sprays = 50 mcg, Nares, Both, Daily at bedtime, # 16 Gm, 0 Refills, Maintenance, 10/21/21 15:30:00 EDT, Nasal [place], [facility]- [id number], Partial fill upon patient request if the prescription is for a schedule II opioid drug., 1 spray... Start Date: 10/21/21 Status: Ordered folic acid 1 mg oral tablet 1 mg, 1, tablet, By Mouth, Daily, # 30 tablet, Refills 0, Tot. Refills 0, Maintenance, 10/21/21 15:30:00 EDT, Route to Pharmacy Electronically, [facility]-[id number], Partial fill upon patient request if the [...] 0 Refills, Maintenance, 10/21/21 15:30:00 EDT, Tablet, [facility]-[id number], Partial fill upon patient request if the [...] Tablet, ; Start Date: 12/29/21 Status: Ordered [place]-3 1000 mg oral capsule 1 capsule = 1,000 mg, By Mouth, 3 times a day, # 90 capsule, 0 Refills, Maintenance, 10/21/21 15:27:00 EDT, Capsule, [facility]-[id number], Partial fill upon patient request if the [...] Team Personnel Name: Sarah Dumont RN Position: [facility] RN Member Role: Primary Care Nurse Name: John Frederick RN Position: [facility] RN Member Role: Primary Care Nurse Name: Minoo Rascon RN Position: S RN Member Role: Primary Care Nurse Name: Anthony Viveros RN Position: S RN Member Role: Primary Care Nurse Name: Galen Xie MD Position: S Physician - Primary Care Member Role: PCP Address: Address: 1961 [place] [address]- Name: Charla Galindo RN Position: S RN Member Role: Primary Care Nurse Name: Julia Sumner Position: S RN Member Role: Primary Care Nurse Name: Bessie Gomes RN Position: S RN Member Role: Primary Care Nurse Name: Ashlie Goodman RN Position: [facility] RN Member Role: Primary Care Nurse Name: Danielle Griffith RN Position: [facility] RN Member Role: Primary Care Nurse Name: Aneta Conte RN Position: [facility] RN Member Role: Primary Care Nurse Name: Carmelina Dunn LPN Position: [facility] RN Member Role: Primary Care Nurse Name: Janay Judd RN Position: [facility] RN Member Role: Primary Care Nurse Name: Brit Gracia RN Position: [facility] RN Member Role: Primary Care Nurse Name: Karma Miller RN Position: [facility] RN Member Role: Primary Care Nurse Care Team Related Persons Name: ELIZABETH REES Address: [address] [place] [address] Name: MELO KUMAR Address: home [address] [place] [address] Name: ROLAND WILLIAM Address: [address] [place] [address]
--- OUTSIDE RECORDS SUMMARY | 2023-09-23 06:12 | XMS_ITS | Continuity of Care Document ---
Author Organization [facility] ter Address [address] [place] [id number] Care Team Providers Care Water Filter Cleaner Name Role Phone Rojas KAPLAN, [facility] Encounter [facility] Date(s): 07/06/22 - 07/07/[address] [id number] Encounter Diagnosis Foreign body in airway(Final) - 07/05/22 Foreign body in airway(Final) - 07/05/22 Discharge Disposition: A-D/C Home Attending Physician: Madison Fitch MD Admitting Physician: Madison Fitch MD Referring Physician: Not on Staff, Referring [...] 10/21/21 15:28:00 EDT, Route to Pharmacy Electronically, [facility]-[id number], Partial fill upon patient request if the prescription is for a schedule... Start Date: 10/21/21 Status: Ordered atenolol 25 mg oral tablet 25 mg, Tablet, By Mouth, 07/07/22 9:00:00 EDT Start Date: 07/07/22 Stop Date: 07/07/22 Status: Completed atenolol 25 mg oral tablet 25 mg, 1, tablet, By Mouth, Daily, # 30 tablet, Refills 0, Tot. Refills 0, Maintenance, 10/21/21 15:28:00 EDT, Route to Pharmacy Electronically, [facility], Partial fill upon patient request if the [...] 0 Refills, Maintenance, 10/21/21 15:24:00 EDT, Tablet, [facility]-[id number], Partial fill upon patient request if the prescription is for aschedule II opioid drug., 1 tablet By Mouth Daily i... Start Date: 10/21/21 Status: Ordered cholecalciferol 2000 intl units oral capsule 1 capsule = 50 mcg, By Mouth, Daily, # 30 capsule, 0 Refills, Maintenance, 10/21/21 15:27:00 EDT, Capsule, [facility]-[id number], Partial fill upon patient request if the [...] 15:30:00 EDT, Route to Pharmacy Electronically, [facility], Partial fill upon patient request if the prescription is for a schedule II... Start Date: 10/21/21 Stop Date: 11/20/21 Status: Ordered fluticasone 50 mcg/inh nasal spray 1 sprays = 50 mcg, Nares, Both, Daily at bedtime, # 16 Gm, 0 Refills, Maintenance, 10/21/21 15:30:00 EDT, Nasal [place], [facility]- [address], Partial fill upon patient request if the prescription is for a schedule II opioid drug., 1 spray... Start Date: 10/21/21 Status: Ordered folic acid 1 mg oral tablet 1 mg, 1, tablet, By Mouth, Daily, # 30 tablet, Refills 0, Tot. Refills 0, Maintenance, 10/21/21 15:30:00 EDT, Route to Pharmacy Electronically, [facility]-[id number], Partial fill upon patient request if the [...] 0 Refills, Maintenance, 10/21/21 15:30:00 EDT, Tablet, [facility]-[id number], Partial fill upon patient request if the [...] Tablet, ; Start Date: 12/29/21 Status: Ordered [place]-3 1000 mg oral capsule 1 capsule = 1,000 mg, By Mouth, 3 times a day, # 90 capsule, 0 Refills, Maintenance, 10/21/21 15:27:00 EDT, Capsule, [facility]-[id number], Partial fill upon patient request if the [...] syndrome Confirmed Active Severe obesity Confirmed Active Procedures Procedure Date Related Diagnosis Body Site Status Bronchoscopy with removal of foreign body 07/05/22 Completed Flexible bronchoscopy 07/05/22 Com pleted Results Radiology Reports * Exam Date Time Procedure Performing Provider Status 07/06/22 2:57 PM Chest 2 Views Frontal and Lat Breanne Phillips; Auth (Verified) Notes: (Chest 2 Views Frontal and Lat) Reason For Exam: Shortness of Breath RESULT: Chest 2 Views Frontal and Lat Chest 2 Views Frontal and Lat Reason: Shortness of Breath; Clinical Question(s): Other:; h o swallowing foreign bodies COMPARISON: None. FINDINGS: Image quality is suboptimal due to patient body habitus. LINES AND TUBES: None. LUNGS AND PLEURA: Patient has taken in shallow respiratory effort. HEART, MEDIASTINUM AND ORSA MARIA: Cardiomediastinal silhouette is within normal limits. No evidence of pulmonary vascular redistribution. BONES AND SOFT TISSUES: Mild shaped thoracolumbar scoliosis IMPRESSION: No acute abnormality. WSN: [id number] Ordering Physician: Seth Lan Dictated By: Jak Leroy Jr, MD Dictated Date/Time: 07/06/22 3:15 pm Reviewed By: Jak Leroy Jr, MD Signed By: Jak Leroy Jr, MD Signed Date/Time: 07/06/22 3:15 pm Transcribed By: ROS Transcribed Date/Time: 07/06/22 3:13 pm * Exam Date Time Procedure Performing Provider Status 07/05/22 9:08 PM Chest Portable Melissa Cr; Auth (Verified) Notes: (Chest Portable) Reason For Exam: Postop RESULT: Chest Portable Chest Portable REASON: Postop; Clinical Question(s): Postop / Postop COMPARISON: Earlier today FINDINGS: LINES AND TUBES: None. LUNGS AND PLEURA: Low lung volumes with mild basilar atelectasis. Lungs are otherwise clear with no definite consolidation. No pleural effusion. No pneumothorax. HEART, MEDIASTINUM AND ROSA MARIA: Heart is normal in size. Normal mediastinal and hilar contour. BONES AND SOFT TISSUES: No acute abnormality. IMPRESSION: No evidence of acute abnormality. WSN: [id number] Ordering Physician: Yoly Hsieh Dictated By: Chevy Mejia MD Dictated Date/Time: 07/05/22 9:09 pm Reviewed By: Chevy Mejia MD Signed By: Chevy Mejia MD Signed Date/Time: 07/05/22 9:09 pm Transcribed By: ROS Transcribed Date/Time: 07/05/22 9:09 pm * Exam Date Time Procedure Performing Provider Status 07/05/22 12:31 PM Neck Soft Tissue Natalie Colon ; Auth (Verified) Notes: (Neck Soft Tissue) Reason For Exam: Trauma RESULT: Neck Soft Tissue Neck Soft Tissue Hx of Present Illness: foriegn body ingestion; Reason: Trauma; Clinical Question(s): Foreign Body Location; Special Instructions: STAT COMPARISON: None FINDINGS: There is a linear radiopacity superimposed on the upper larynx in the lateral projection not visible in the AP view, suspected to represent a structure lying outside the patient. There is no other evidence of a foreign body. Patent nasopharynx. No abnormal adenoidal enlargement. Normal retropharyngeal and retrotracheal soft tissues. Otherwise normal airway. Normal bones. IMPRESSION: Linear radiopacity superimposed on the upper larynx in the lateral view only, suspected to represent an artifact lying outside the patient. However, a repeat lateral projection is recommended with clearing of external structures away from the medial and lateral aspects of the neck. Otherwise normal examination. Findings reviewed with the generation engineering technologist at 2:30 PM. WSN: [id number] Ordering Physician: Breanne Berrios Dictated By: Dawit Roque MD Dictated Date/Time: 07/05/22 2:32 pm Reviewed By: Dawit Roque MD Signed By: Dawit Roque MD Signed Date/Time: 07/05/22 2:32 pm Transcribed By: ROS Transcribed Date/Time: 07/05/22 2:23 pm * Exam Date Time Procedure Performing Provider Status 07/05/22 12:10 PM Neck Soft Tissue Eddie , Delaney; Auth (Verified) Notes: (Neck Soft Tissue) Reason For Exam: Foreign Body RESULT: Neck Soft Tissue Neck Soft Tissue Hx of Present Illness: foriegn body ingestion; Reason: Foreign Body; Clinical Question(s): Foreign Body Location COMPARISON: 06/19/2022 FINDINGS: A frontal view of the soft tissues of the neck is submitted. No lateral view is provided. No radiopaque foreign bodies are seen. The visualized airway is grossly unremarkable. IMPRESSION: Limited examination. There are no radiopaque foreign bodies. WSN: [id number] Ordering Physician: Casandra Bledsoe Dictated By: Radha Mcknight MD Dictated Date/Time: 07/05/22 12:23 p Reviewed By: Radha Mcknight MD Signed By: Radha Mcknight MD Signed Date/Time: 07/05/22 12:23 pm Transcribed By: ROS Transcribed Date/Time: 07/05/22 12:22 pm * Exam Date Time Procedure Performing Provider Status 07/05/22 12:10 PM Chest Portable Eddie , Delaney; Auth (V erified) Notes: (Chest Portable) Reason For Exam: Shortness of Breath RESULT: Chest Portable Examination: Portable chest performed on 07/05/2022. History: Foreign body ingestion. Shortness of breath. Findings: A frontal view of the chest is compared to a prior study dated 06/19/2022. The cardiac and mediastinal silhouettes are within normal limits. The lungs are clear. No radiopaque foreign bodies are identified. The osseous structures are unremarkable. IMPRESSION: Unremarkable examination. WSN: [id number] Ordering Physician: Casandra Bledsoe Dictated By: Radha Mcknight MD Dictated Date/Time: 07/05/22 12:21 p Reviewed By: Radha Mcknight MD Signed By: Radha Mcknihgt MD Signed Date/Time: 07/05/22 12:21 pm Transcribed By: ROS Transcribed Date/Time: 07/05/22 12:20 pm Vital Signs Most recent to oldest [Reference Range]: 1 2 3 Weight 109.3 kg (07/07/22 5:56 AM) 106.6 kg (07/05/22 2:26 PM) Oxygen Saturation [94-100 %] 98 % (07/07/22 11:00 AM) 96 % (07/07/22 7:00 AM) 95 % (07/06/22 11:18 PM) Pulse Rate [55-90 bpm] 65 bpm (07/07/22 11:00 AM) 78 bpm (07/07/22 8:08 AM) 78 bpm (07/07/22 7:00 AM) Blood Pressure [90-138/55-84 mm Hg] 103/61mm Hg (07/07/22 11:00 AM) 131/71mm Hg (07/07/22 8:08 AM) 131/71mm Hg (07/07/22 7:00 AM) Respiratory Rate [16-30 br/min] 16 br/min (07/07/22 11:00 AM) 22 br/min (07/07/22 7:00 AM) 19 br/min (07/06/22 11:18 PM) Temperature [96.8-100.4 DegF] 97.2 DegF (07/07/22 11:00 AM) 98.3 DegF (07/07/22 7:00 AM) 98.2 DegF (07/06/22 11:18 PM) Liters per Minute 2 L/min (07/07/22 11:00 AM) 2 L/min (07/07/22 7:00 AM) 2 L/min (07/06/22 11:18 PM) Mode of Delivery (Oxygen) Nasal cannula (07/07/22 11:00 AM) Nasal cannula (07/07/22 7:00 AM) Nasal cannula (07/06/22 11:18 PM) Blood pressure sites Arm, right (07/07/22 11:00 AM) Arm, right (07/07/22 7:00 AM) Arm, right (07/06/22 11:18 PM) Temperature Route Oral (07/07/22 11:00 AM) Oral (07/07/22 7:00 AM) Axillary (07/06/22 11:18 PM) Dry Weight 106.6 kg (07/05/22 2:26 PM) Weight Obtained Via Bed scale (07/07/22 5:56 AM) Social History Social History Type Response Smoking Status Never (less than 100 in lifetime) entered on: 09/17/20 Sex History and physical note * Kayleen Quiles MD: MODIFY, PERFORM Event Display: History and Physical Hospital Authored Date: Patient: ??ADILENE MATHEWS ? Age:??27 Years?Sex:??Female?:??1995?? Chief Complaint pt coming from urgent care was being seen for UTI pt swalloed a bottle cap with diff breathing airway patent speech clear toleratering all secrections ?? Referring Physician:??Yash Consulting Physician:??Little Reason for Consultation:??Airway FB History of Present Illness Adilene Mathews is a 26-year-old senior living resident with a history of autism, Prader-Willi, and picawith foreign body ingestion, who presented to the ED after swallowing a water bottle cap.?? She haspreviously presented to the ED with similar concerns after ingestion of other foreign bodies.?? On this particular occasion, she was going to a doctor's appointment for follow-up for a UTI, when she got a hold of a plastic bottle cap and aspirated it.?? Per EMS report, the bottle cap was visible inthe upper airway/posterior pharynx.?? She was thus, transported to the ED for further care/evaluation.?? Here, the patient was found to be breathing comfortably and saturating well.?? She endorsed feeling the bottle cap in the back of her throat.?? Staff worker accompanied her and noted some muffling of her voice.?? She denied any chest pain or shortness of breath.?? In the ED, plain films were obtained that showed the FB lodged in the upper airway.?? She received nebulized lidocaine and was drooling a fair bit on my assessment, but she continued to breath comfortably. Review of Systems A 10-point review of systems was negative except as documented in the HPI.?? Physical Exam Vitals & Measurements HI:??72?? RR:??18?? BP:??148/78?? SpO2:??100%? General: alert, awake, getting a nebulized lidocaine treatment, slightly muffled speech Eyes: extraocular movement intact Nose: no epistaxis, no deformity Mouth: drooling, unable to visualize FB in the oropharynx Chest: symmetric, no deformity Heart: regular rate and rhythm Lungs: clear to auscultation bilaterally Abdomen: soft, nontender, nondistended Skin: no rashes or lesions Extremities: no calf tenderness Neurologic: alert & answering questions appropriately Vascular: extremities are warm and well-perfused Assessment/Plan Adilene Mathews is a 26-year-old senior living resident with a history of autism, Prader-Willi, and picawith foreign body ingestion, who presented to the ED after swallowing a water bottle cap. ?? Plan NPO OR for EUA, direct laryngoscopy, FB removal, possible bronchoscopy, and possible endoscopy Anesthesia aware of difficult airway Further plans pending OR findings ?? [place] [phone] with any questions or concerns. ?? Discussed with attending surgeon, Dr. Fitch. Problem List/Past Medical History Ongoing Anxiety Autism spectrum Constipation Crohn disease Dermatitis Foreign body in hypopharynx Foreign body ingestion Pica Prader-Willi syndrome Prader-Willi syndrome Severe obesity Historical Obese class II Procedure/Surgical History Esophagogastroduodenoscopy: 02/23/22 EGD - Esophagogastroduodenoscopy: 10/16/21 Home Medications Acetaminophen: 650 mg = 2 tablet, By Mouth, Every 4 hours, PRN (pain/fever) Aripiprazole: 5 mg = 1 tablet, By Mouth, Daily Atenolol: 25 mg = 1 tablet, By Mouth, Daily Calcium And Vitamin D Combination: 1 tablet, By Mouth, Daily in AM Cholecalciferol: 50 mcg = 1 capsule, By Mouth, Daily Famotidine: 40 mg = 1 tablet, By Mouth, Daily Fluoxetine: 20 mg, By Mouth, Daily in AM Fluticasone Nasal: 50 mcg = 1 sprays, Nares, Both, Daily at bedtime Folic Acid: 1 mg = 1 tablet, By Mouth, Daily HydrOXYzine: 25 mg = 1 tablet, By Mouth, Every 12 hours, PRN (Agitation/ sleep) Mercaptopurine: 50 mg = 1 tablet, By Mouth, Daily Naltrexone: 50 mg = 1 tablet, By Mouth, Daily [place]-3 Polyunsaturated Fatty Acids: 1,000 mg = 1 capsule, By Mouth, 3 times a day Polyethylene Glycol 3350: 17 Gm, By Mouth, Daily, PRN (as needed), dissolve in water before taking Silver SulfADIAZINE Topical: 1/4 ribbon, Topically, Daily at bedtime, FOR VAGINAL ITCHING Sodium Chloride Nasal: 2 spays, Nares, Both, Every 12 hours, PRN (as needed for dry nasal passages) Ustekinumab: 90 mg = 1 mL, Subcutaneous Injection, Every 8 Weeks, on Fridays Allergies Haldol LMX 4 with Tegaderm Social History Alcohol Use: Never., 09/17/2020 Substance Abuse Use: Never., 09/17/2020 Tobacco Use: Never (less than 100 in lifetime)., 09/17/2020 Family History No family history recorded. Radiology kevan For Exam Shortness of Breath ?? RESULT: Chest Portable Examination: Portable chest performed on 07/05/2022. ?? History: Foreign body ingestion. Shortness of breath. ?? Findings: ?? A frontal view of the chest is compared to a prior study dated 06/19/2022. ?? The cardiac and mediastinal silhouettes are within normal limits. The lungs are clear. No radiopaque foreign bodies are identified. ?? The osseous structures are unremarkable. ?? IMPRESSION: ?? Unremarkable examination. ? RESULT: Neck Soft Tissue Neck Soft Tissue? Hx of Present Illness: foriegn body ingestion; Reason: Foreign Body; Clinical Question(s): Foreign Body Location ?? COMPARISON: 06/19/2022 ?? FINDINGS:? A frontal view of the soft tissues of the neck is submitted. No lateral view is provided. ?? No radiopaque foreign bodies are seen. The visualized airway is grossly unremarkable. ?? IMPRESSION: ?? Limited examination. There are no radiopaque foreign bodies. ?? Lab Results Labs Last 24 Hours No qualifying data available. * Madison Fitch MD: PERFORM Event Display: History and Physical Hospital Authored Date: Acute Care Surgery??Attending Attestation: ?? The patient was seen, examined, and discussed with the team on the date of service documented. ??The clinical course, labs, and radiological studies were reviewed by me and findings on exam confirmed. ??I agree with the findings and assessment and plan as delineated above. ?? 27F well with PMH of autism, Prader-Jermaine and Pica, well known to the surgical service presents after witnessed ingestion of plastic water bottle cap. Patient has increased secretions and voice hoarseness, she is maintaining her airway and saturating well without increased work of breathing. CXR shows retained foreign body in the upper larynx. Booked for OR for direct laryngoscopy and removal of foreign body with possible bronchoscopy and possible EGD. --- Madison Fitch MD ACS Fellow, PGY-VIII Hospital Progress note * Betty Kenny LPN: PERFORM, SIGN, VERIFY Event Display: Progress Note Hospital Authored Date: Patient: ADILENE MATHEWS Age: 27 years Sex: Female : 1995 Associated Diagnoses: None Author: Fernando Kenny LPNs Findings Problem Related to Alteration in Gastrointestinal : Alteration in Gastrointestinal Func/new 07/07/2022 12:00 EDT Alteration in GI status Related to Other: Foreign body ingestion Goals & Outcomes, Gastrointestinal Establish a regular pattern of elimination for pt, Nutritional intake is adequate for metabolic needs, Pt will have a bowel movement prior to discharge Interventions, Gastrointestinal Assess/monitor abdomen for distention, tenderness, Assess/monitor abdominal girth & bowel function, Assess/monitor bowel pattern, bowel sounds, flatus, Assess/monitor number of bowel movements, Assess/monitor color, quantity, quality, consistency of stoo, Assess/monitor pt for nausea, vomiting, Assess/monitor intake & output, Assess if pt tolerating diet, DVT prophylaxis as ordered, Elevate HOB to facilitate lung expansion, prevent aspiration, Teach Pt/caregiver on bowel elimination interventions, Teach Pt/caregiver re: importance of bowel regime, TeachPt/caregiver re: nutritional intake & dietary restrict, Teach/encourage deep breath & coughexercises, Teach/encourage use of incentive spirometer Goals/Interventions, Gastrointestinal Yes Gastrointestinal, Problem Start 07/06/2022 2:13 Reviewed plan with, Gastrointestinal Patient Patient Progression, Gastrointestinal Pt progressing according to plan . Nursing Data Cardiac Data. : Cardiac Data. 07/07/2022 11:23 EDT Cardiovascular Symptoms Edema present Nail Bed Color, Fingers [place] Nail Bed Color, Toes [place] Skin Temperature Upper Extremities Warm Skin Temperature Lower Extremities Warm Dorsalis Pedis Pulse, Left Normal Dorsalis Pedis Pulse, Right Normal Ankle, left 2+ mild Ankle, right 2+ mild Pedal, left 2+ mild Pedal, right 2+ mild surveillance system monitor No Cardiovascular WNL except . Respiratory/Pulmonary Data. : Respiratory/Pulmonary Data. 07/07/2022 11:23 EDT Respiratory Symptoms None Respiratory effort Unlabored Cough No cough Respiratory pattern Regular Left Upper Lobe Breath Sounds Clear Right Upper Lobe Breath Sounds Clear Right Middle Lobe Breath Sounds Clear Left Lower Lobe Breath Sounds Clear Right Lower Lobe Breath Sounds Clear Respiratory distress None Respiratory Treatment(s) Cough and deep breathe, Updraft Nebulizer Therapy/MDI Respiratory WNL except . Narrative/Incidental Patient is alert/ oriented x3. Reports absence of pain. Lungs are clear on 2L nasal canula. Encouraged to cough/ deep breathe and scheduled Duo-neb given. Has + pedal pulses, + color/ motion/ sensation, +2 edema to bilateral ankles/ feet. Patient has + bowel sounds x4, abdomen is soft/ round/ non-tender. Diet is diabetic, tolerating well. Voiding without report of difficulty. Skin is intact. Ambulating in room standby assist. Call neri within reach, able to use appropriately. custodial at bedside assisting with safety due to Pica risk.. Discharge Information Case Management Discharge Plan : Case Management Discharge Plan Data 07/07/2022 12:13 EDT Discharge Level of Care at Discharge Home/Longterm/Foster Care Discharge Medical Equipment [employer] Mode of Transportation Arranged Other Name of Agency #1 [facility] Categories #1 Oxygen Therapy Service Comments #1 Please call Emily when you get home to arrange for home delivery of oxygen. * Seth Lan MD: MODIFY, SIGN, MODIFY, SIGN, PERFORM, MODIFY, SIGN, VERIFY Event Display: Progress Note Hospital Authored Date: [id number] Patient: ADILENE MATHEWS Age: 27 years Sex: Female : 1995 Associated Diagnoses: None Author: Seth Lan MD Subjective No issues overnight. On 2L NC, down from 3L yesterday. RN attempted to wean, but patient would desaturate to 80's on 1L NC. The patient denies shortness of breath, chest pain, N/V, F/C. Family at bedside says that they check her SpO2 at home and its usually low 90's, and they often notice her lips and toes turning blue. Objective Vitals: No qualifying data available. Physical Exam: Constitutional: No acute distress, awake, alert and oriented x3 Cardiovascular: Regular rate and rhythm, no edema, 2+ dorsalis pedis bilaterally Respiratory: Regular rate, no respiratory distress, 2L NC Abdomen/GI: soft, non-tender, non-distended Extremities: No clubbing or cyanosis, moving/feeling all extremities Results Review No labs resulted between 07/06/2022 00:00 and 07/07/2022 06:57 Impression and Plan Adilene Mathews is a 26-year-old senior living resident with a history of autism, Prader-Willi, and picawith foreign body ingestion, who presented to the ED after swallowing a water bottle cap. DART was called 07/05, and the FB was removed via direct laryngoscopy. Plan was initially to discharge patient,however she had desaturations to the 80's, chest xray within normal limits, and was kept overnight for supplemental O2 and monitoring. On 07/07, she was able to be weaned from 3L NC to 2L NC, however when on 1L NC she desats to the 80's. CXR wnl. Per family, they measure the patient's SpO2 at home and it is usually in the low 90's, and her lips/toes often turn blue. On 07/06, she was seen by the pulmonary rehab nurse: recommendation for 2L continuously. - Wean O2 as tolerated this AM for goal SpO2 >92% - Chest PT - Duonebs - Tylenol PRN for sore throat - Pulmonary rehab nurse recs: 2L continuously. Diagnosis: obstructive sleep apnea. - Possible dc back to senior living later today if improved from respiratory standpoint [place] [phone] with any questions or concerns. Discussed with attending surgeon, Dr. Che * Nisreen ENGLISH, Ny: PERFORM, SIGN, VERIFY Event Display: Progress Note Hospital Authored Date: [id number] Patient: ADILENE MATHEWS Age: 27 years Sex: Female : 1995 Associated Diagnoses: None Author: Ny Nielson RN Findings Problem Related to Alteration in Gastrointestinal : Alteration in Gastrointestinal Func/new 07/06/2022 22:00 EDT Alteration in GI status Related to Other: Foreign body ingestion Goals & Outcomes, Gastrointestinal Establish a regular pattern of elimination for pt, Nutritional intake is adequate for metabolic needs, Pt will have a bowel movement prior to discharge Interventions, Gastrointestinal Assess/monitor abdomen for distention, tenderness, Assess/monitor abdominal girth & bowel function, Assess/monitor bowel pattern, bowel sounds, flatus, Assess/monitor number of bowel movements, Assess/monitor effects of re-hydration, Assess/monitor intake & output, Assess if pt tolerating diet, DVT prophylaxis as ordered BH Goals/Interventions, Gastrointestinal Yes Gastrointestinal, Problem Start 07/06/2022 2:13 Reviewed plan with, Gastrointestinal Patient Patient Progression, Gastrointestinal Pt progressing according to plan . Nursing Data Vital Signs : VITAL SIGNS SECTION 07/06/2022 19:20 EDT Temperature 98.4 DegF Temperature Route Axillary Pulse Rate 85 bpm Respiratory Rate 18 br/min Systolic Blood Pressure 117 mm Hg Diastolic Blood Pressure 57 mm Hg Blood pressure sites Arm, left Mean Arterial Pressure 77 mm Hg Pulse Pressure 60 mm Hg Oxygen Saturation 95 % Liters per Minute 2 L/min Mode of Delivery (Oxygen) Nasal cannula . Narrative/Incidental See Above Plan of Care . Evaluation Patient is alert & oriented x4, 2 senior living works in room currently, has history & admitted with foreign body ingestion. Lungs are clear bilaterally. Denies chest pain and shortness of breath. On 2L nasal canal oxygen saturation of 100%, decreased to 1L with saturation of 96-98%. Last bowel movement: 07/05. Abdomen is soft, round and non-tender. Tolerating diabetic diet withtout nausea andvomiting. Voiding without difficulty in bathroom. Receiving lovenox for DVT prophylaxis. Skin is intact, has small bump on right knee. Patient ambulating with standby assist, requiring oxygen with ambulation. Patient denies pain at this time. Patient resting in bed with call neri within reach. . Note * Betty Kenny LPN: PERFORM Event Display: Discharge/Transfer Note Hospital Authored Date: [id number] Nursing Discharge Note Entered On: 07/07/2022 15:16 EDT Performed On: 07/07/2022 15:15 EDT by Betty Kenny LPN Nursing Discharge Note 2 Discharge Time : 07/07/2022 15:15 EDT Discharge Level of Care at Discharge : Home/Longterm/Foster Care Discharge [employer]) : Emily [facility] Patient Left Unit Via : Wheelchair Patient Accompanied Off Unit with : Responsible adult DC Instructions Provided & Signed by Pt : Unable Patient Understands D/C Instructions : Unable Verbalized Understanding of D/C Plan By : Caregiver Patient Instructions Discharge Signed : Yes Did Pt have Specialty Bed or Wound Vac : No Betty Kenny LPN - 07/07/2022 15:15 EDT * Rosa Isela Campbell: PERFORM Event Display: Discharge/Transfer Note Hospital Authored Date: [id number] Pulmonary Rehab Discharge Status Entered On: 07/07/2022 12:26 EDT Performed On: 07/07/2022 12:25 EDT by Rosa Isela Campbell Pulmonary Rehab Discharge Status Patient Going Home on Oxygen : Yes Portable unit required : Yes Oxygen Device used at Home : Nasal cannula Liter flow : 2 LPM Oxygen Use Duration : Continuous Discharge Medical [employer] Companies(v001) : [facility] Home care instructions : Call company when you get home. Nurse Communication (Pulmonary Rehab) : You will be contacted to schedule a follow up oxygen evaluation in 2-[address] [place] [address]. Informational handouts : Oxygen Therapy Rosa Isela Campbell - 07/07/2022 12:25 EDT * Seth Lan MD: MODIFY Riky KAPLAN, Seth: MODIFY, PERFORM Riky KAPLAN, Seth: PERFORM, SIGN Riky KAPLAN, Seth: SIGN, VERIFY Riky KAPLAN, Seth: VERIFY, MODIFY Riky KAPLAN, Seth: MODIFY, SIGN Riky KAPLAN, Seth: SIGN Event Display: Discharge/Transfer Note Hospital Authored Date: [id number] Patient: ADILENE MATHEWS Age: 27 years Sex: Female : 1995 Associated Diagnoses: Foreign body - Ingested; Foreign body in airway Author: Seth Lan MD Discharge Information Admission Date: 07/06/2022 Discharge Date 07/07/2022 Principal Discharge Diagnosis Foreign body - Ingested. Foreign body in airway. Medications MEDICATION LIST (Selected) Prescriptions Prescribed ARIPiprazole 5 mg oral tablet: 5 mg, 1, tablet, By Mouth, Daily, # 30 tablet, Refills 0, Tot. Refills 0, Maintenance, 10/21/21 15:28:00 EDT, Route to Pharmacy Electronically, [id number], Partial fill upon patient request if the prescription is for a schedule... FLUoxetine 20 mg oral capsule: 20 mg, By Mouth, Daily in AM, # 30 capsule, Refills 0, Tot. Refills 0, Maintenance, 10/21/21 15:30:00 EDT, Route to Pharmacy Electronically, [facility]-[id number], Partial fill upon patient request if the prescription is for a schedule II... [place]-3 1000 mg oral capsule: 1 capsule = 1,000 mg, By Mouth, 3 times a day, # 90 capsule, 0 Refills, Maintenance, 10/21/21 15:27:00 EDT, Capsule, [facility], Partial fill upon patient request if the prescription is for a schedule II opioid drug., 152.4, cm... atenolol 25 mg oral tablet: 25 mg, 1, tablet, By Mouth, Daily, # 30 tablet, Refills 0, Tot. Refills0, Maintenance, 10/21/21 15:28:00 EDT, Route to Pharmacy Electronically, [facility]33776, Partial fill upon patient request if the prescription is for a schedul... calcium (as citrate)-vitamin D 200 mg-250 intl units oral tablet: 1 tablet, By Mouth, Daily in AM, # 30 tablet, 0 Refills, Maintenance, 10/21/21 15:24:00 EDT, Tablet, [facility]87947, Partial fill upon patient request if the prescription is for a schedule II opioid drug., 1 tablet By Mouth Daily i... cholecalciferol 2000 intl units oral capsule: 1 capsule = 50 mcg, By Mouth, Daily, # 30 capsule, 0 Refills, Maintenance, 10/21/21 15:27:00 EDT, Capsule, [facility]70366, Partial fill upon patient request if the prescription is for a schedule II opioid drug., 152.4, cm, 10/21/21... fluticasone 50 mcg/inh nasal spray: 1 sprays = 50 mcg, Nares, Both, Daily at bedtime, # 16 Gm, 0 Refills, Maintenance, 10/21/21 15:30:00 EDT, Nasal [place], [facility]72, Partial fill upon patient request if the prescription is for a schedule II opioid drug., 1 spray... folic acid 1 mg oral tablet: 1 mg, 1, tablet, By Mouth, Daily, # 30 tablet, Refills 0, Tot. Refills0, Maintenance, 10/21/21 15:30:00 EDT, Route to Pharmacy Electronically, [facility]42064, Partial fill upon patient request if the prescription is for a schedule... mercaptopurine 50 mg oral tablet: 1 tablet = 50 mg, By Mouth, Daily, # 30 tablet, 0 Refills, Maintenance, 10/21/21 15:30:00 EDT, Tablet, [facility]-[id number], Partial fill upon patient request if the prescription is for a schedule II opioid drug., 152.4, cm, 10/21/21 11:... Documented Medications Documented Benadryl 25 mg oral capsule: 1 capsule [...] Topically, Daily at bedtime, FOR VAGINAL ITCHING. Chief Complaint/Reason for Admission 26F DART/hypopharynx FB s/p direct laryngoscopy w FB removal (11/18 EK) PMSH: Prader-Willi, pica, autism, PCOS, Crohn's, HTN, constip, anx, obesity, EGD Aware of diagnosis: patient. Discharge condition: good Compared to admission: improved Hospital Course Hospital course Adilene Mathews is a 26-year-old senior living resident with a history of autism, Prader-Willi, and picawith foreign body ingestion, who presented to the ED after swallowing a water bottle cap. DART was called 07/05, and the FB was removed via direct laryngoscopy. Hospital course was complicated by episodes of desaturations to the 80's, chest xray within normal limits, and was kept overnight for supplemental O2 and monitoring. On 07/07, she was weaned from 3L NC to 2L NC, however when on 1L NC she desats to the 80's. Per family, they measure the patient's SpO2 at home and it is usually in the low 90's, and her lips/toes often turn blue. On 07/06, she was seen by the pulmonary rehab nurse: recommenda tion for 2L continuously which was able to be set up. At time of discharge her hemoglobin and hematocrit were stable, pain well controlled, without any leukocytosis. She was tolerating a diet, voiding independently, ambulating without any issues. She will be discharged home with follow up with PCP in 1 week. Final case management note: Emily delivered tank for pt after scripts/documentation obtained. custodial workers in room was shown how to open and use tank, they will call [employer] once home to have home O2 delivered. HCP paperowkr compelted by trauma team and given to senior living workers. Spoke with Iris, director of group sales overphone, gave update on dc today and new home O2. Called pts [employer], notified of pt dc today and new home O2(prevously notified by pulm nurse). She states pt has recently had a sleep study and was found to ahve KARLA and needs CPAP. They are making appt with PCP for follow up. She has no other questions or concerns at this time. custodial staff have van, they will transport pt back home. Physical Exam: Constitutional: No acute distress, awake, alert and oriented x3 Cardiovascular: Regular rate and rhythm, no edema, 2+ dorsalis pedis bilaterally Respiratory: Regular rate, no respiratory distress, 2L NC Abdomen/GI: soft, non-tender, non-distended Extremities: No clubbing or cyanosis, moving/feeling all extremities Postoperative Events Unexpected Return to the OR: no. Significant Results Results: Vital signs : VITAL SIGNS SECTION 07/07/2022 7:00 EDT Temperature 98.3 DegF Temperature Route Oral Pulse Rate 78 bpm Respiratory Rate 22 br/min Systolic Blood Pressure 131 mm Hg Diastolic Blood Pressure 71 mm Hg Blood pressure sites Arm, right Pulse Pressure 60 mm Hg Oxygen Saturation 96 % Liters per Minute 2 L/min Mode of Delivery (Oxygen) Nasal cannula . Discharge Plan Discharge Disposition Discharge: custodial. * Efraín BOOTH, Betty: PERFORM Event Display: Patient Education/Instruction Authored Date: [id number] Inpatient Adult Discharge Instructions [address] [address] Name: ADILENE LAM : 1995 Visit: 07/06/2022 08:46:00 Current Date: 07/07/2022 14:08 Account: [id number] Inpatient Adult Discharge Instructions We would like [...] and their families. Surveys are administered by [employer] ?? If further treatment with your primary care physician or another doctor is recommended, it is important for you to keep the appointment. Call your primary care physician or return to the Emergency Department immediately if your condition worsens, fails to improve, or new symptoms develop. If you need to find a doctor, you can call [facility] [employer] for a referral at [phone] or toll free at [phone] TechnologiesDYIYLF ([phone]) or log in to [email or web address].. ?? You can view and manage your care through the patient portal or by using a health care lisa of your choosing. [employer] is a website that allows you to securely view your medical information including your hospital discharge summary, office visit summaries, medications and follow-up visits. You can also request appointments, renew medications, and request access to your medical information using a health care lisa of your choosing, or just ask a question. You can enroll at [email or web address] or register during your next office visit. You have been discharged from [facility], Patient Care Unit: SW6. If you have any questions regarding these instructions after you leave, please call us and we will be happy to assist you. [facility] Your Care Team Attending Physician Little KAPLAN, Madison Discharging Providers Riky KAPLAN, Seth Reason for Admission pt coming from urgent care was being seen for UTI pt swalloed a bottle cap with diff breathing airway patent speech clear toleratering all secrections Your Diagnosis Foreign body in airway Foreign body in airway Tests Performed Below is a partial list of the tests performed during your hospitalization. You may have had other tests and procedures not included in this list. Please discuss all test results with your provider. COVID-19 (Novel Coronavirus), Rapid PCR?-- Results Pending -- COVID-19 RNA POC CXR Portable XR Chest 2 Views Frontal and Lat XR Chest Portable XR Neck Soft Tissue ? You will be contacted within 72 hours with your results. Primary Care Provider Rojas [facility]LAN[facility] Health Care Proxy on File Yes - Health Care Proxy Discharge Vitals Temperature: 97.2 DegF Weight: 109.3 kg Pulse Rate: 65 bpm ?? Respiratory Rate: 16 br/min ?? Systolic Blood Pressure: 103 mm Hg ?? Diastolic Blood Pressure: 61 mm Hg ?? Oxygen Saturation: 98 % ?? Studies Pending All tests and labs ordered during this hospital stay have been completed unless listed below. Please discuss all pending results with your provider listed above in these instructions. ?? Basic Metabolic Panel CBC w/ Differential COVID-19 (Novel Coronavirus), Rapid PCR What to do next Instructions From Your Doctor DIAGNOSIS: Foreign body aspiration; obstructive sleep apnea ?? Your specific PATIENT CARE INSTRUCTIONS (what to do / when to return): Please keep your nasal cannula on continuously, running at 2L/min. Please return to the ED if you develop worsening shortness ofbreath or difficulty breathing, cough, or fevers. You can follow-up with your PCP as needed otherwise. Discharge Orders You Need to Schedule the Following Appointments Follow Up with??Galen Xie MD When??Within 1 week Where: [address] [place] [address]- Business (1) Follow Up with??Madison Fitch When??Within 1 to 2 weeks Where: [address] [place] [address] Trauma [place] [address]- [facility] (1) Discharge Medications ADILENE MATHEWS :1995 Visit Date:07/06/2022 Medications: Please continue your medications until treatment is completed or stopped by your provider. Medications not listed below should be discontinued. Discuss any questions related to medications with your provider. What How Much When Instructions Next Dose Unchanged Acetaminophen (acetaminophen 325 mg oral tablet) 2 tab(s) Oral Daily as needed for pain/fever as needed Unchanged Aripiprazole (ARIPiprazole 5 mg oral tablet) 1 tab(s) Oral Daily 07/08 9am Unchanged Atenolol (atenolol 25 mg oral tablet) 1 tab(s) Oral Daily 07/08 9am Unchanged Calcium And Vitamin D Combination (calcium (as citrate)-vitamin D 200 mg-250 intl units oral tablet) 1 tab(s) Oral Daily in the morning 07/08 9am Unchanged Cholecalciferol (cholecalciferol 2000 intl units oral capsule) 1 capsule Oral Daily Duration: 30 Days 07/08 9am Unchanged DiphenhydrAMINE (Benadryl 25 mg oral capsule) 1 capsule Oral Daily as needed for as needed for itching as needed Unchanged Famotidine (famotidine 40 mg oral tablet) 1 tab(s) Oral Daily 07/08 9am Unchanged Fluoxetine (FLUoxetine 20 mg oral capsule) 20 Milligram Oral Daily in the morning Duration: 30 Days 07/08 9am Unchanged Fluticasone Nasal (fluticasone 50 mcg/ inh nasal spray) 1 spray(s) Nares, Both Daily at Bedtime 07/07 9pm Unchanged Folic Acid (folic acid 1 mg oral tablet) 1 tab(s) Oral Daily 07/08 9am Unchanged HydrOXYzine (hydrOXYzine hydrochloride 25 mg oral tablet) 1 tab(s) Oral Every 12 hours as needed for Agitation/ sleep as needed Unchanged Melatonin (melatonin 10 mg oral tablet) 1 tab(s) Oral Daily at Bedtime as needed for as needed for insomnia as needed Unchanged Mercaptopurine (mercaptopurine 50 mg oral tablet) 1 tab(s) Oral Daily 07/08 9am Unchanged Naltrexone (naltrexone 50 mg oral tablet) 1 tab(s) Oral Daily 07/08 9am Unchanged [place]-3 Polyunsaturated Fatty Acids ([place]-3 1000 mg oral capsule) 1 capsule Oral 3 times a day Duration: 30 Days 07/07 3pm Unchanged Polyethylene Glycol 3350 (MiraLax oral powder for reconstitution) 17 gram Oral Daily as needed for as needed dissolve in water before taking ?? as needed Unchanged Silver SulfADIAZINE Topical (silver sulfADIAZINE 1% topical cream) 1/4 ribbon Topically Daily at Bedtime FOR VAGINAL ITCHING ?? 07/07 9pm Unchanged Sodium Chloride Nasal (Saline Nasal Mist) 2 spays Nares, Both Every 12 hours as needed for as needed for dry nasal passages as needed Unchanged Ustekinumab (Stelara PFS 90 mg/ mL subcutaneous solution) 1 Milliliter Subcutaneous Injection Every 8 Weeks on Fridays ?? as directed Test Results Below is a partial list of the most recent Laboratory test results done prior to this discharge. You may have had other tests and procedures not included in this list. Please discuss all test resultswith your provider. COVID-19 RNA POC (07/05/2022) ???COVID-19 POC Result - NEGATIVE Allergies (NKA means No Known Allergies) Haldol LMX 4 with Tegaderm Problems Active Problems??(11) Anxiety?? Autism spectrum?? Constipation?? Crohn disease?? Dermatitis?? Foreign body in hypopharynx?? Foreign body ingestion?? Pica?? Prader-Willi syndrome?? Prader-Willi syndrome?? Severe obesity?? Education Materials Below is the list of Educational Leaflet Providered with your Discharge Instructions. If Oxygen Is Prescribed?? Upper GI Endoscopy?? Surgery Voiding Instructions?? Surgery Medical Daystay Surgical Overnight Discharge Instructions?? Bronchoscopy Discharge?? Upper GI Endoscopy?? Bronchoscopy Discharge?? Surgery Voiding Instructions?? Surgery Medical Daystay Surgical Overnight Discharge Instructions?? Valuables and Belongings I fully understand and agree that [facility] accepts no responsibility for all my [...] to send valuables and belongings home. ?? Review of Valuable and Belonging List: With patient Date for Pt to Sign Valuables/Belongings: 07/05/22 14:26:00 ?? Other Discharge Information ? Case Management Discharge Plan?? Discharge Plan?? Discharge Agency Information?? Discharge Level of Care at Discharge: Home/Longterm/Foster Care Name of Agency #1: [facility] Mode of Transportation Arranged: Other Service Categories #1: Oxygen Therapy Discharge Medical Equipment [employer]: [employer] Service Comments #1: Please call [employer] when you get home to arrange for home delivery of oxygen. ?? Pulmonary Rehab Status?? Pulmonary Rehab Discharge Status?? Patient Going Home on Oxygen: Yes Portable unit required: Yes Oxygen Device used at Home: Nasal cannula Liter flow: 2 LPM Oxygen Use Duration: Continuous Respiratory Rate: 16 br/min Discharge Medical Equipment Companies: [employer] Home care instructions: Call [employer] when you get home. Nurse Communication (Pulmonary Rehab): You will be contacted to schedule a follow up oxygen evaluation in 2-[address] [place] [address]. Informational handouts: Oxygen Therapy ? Common Emergency Awareness Tips IS IT [...] are strongly encouraged to quit. Please call [facility] [employer] at [phone] or [phone] ([phone]) or log in to [email or web address] for referrals to smoking cessation programs. ?? The National Suicide Prevention Hotline is available 19/10 if you or someone you know needs to find a reason to keep living. By calling 7-459-541PharmAssistant (1598) you'll be connected to a skilled, trained counselor at a crisis center in your area. INPATIENT DISCHARGE INSTRUCTIONS SIGNATURE PAGE BISI ADILENE Location:[facility] Registration Date and Time:07/06/2022 08:46 EDT Primary Care Physician: Rojas KAPLAN, [facility], I ADILENE MATHEWS, have received the above patient education materials/instructions and have verbalized understanding. If ambulance or transport services are being used I further acknowledge being given a choice of service. ?? If you need to contact me, please call me at this number: . Patient/Grinding Machine Operator Automatic Name: Patient/Grinding Machine Operator Automatic Signature: Relationship to Patient: Witness Name/Signature: Date: * Seth Lan MD: PERFORM Event Display: Patient Education Leaflets Authored Date: [id number] If Oxygen Is Prescribed ?? [address] If Oxygen Is Prescribed?? Supplemental oxygen is prescribed if tests show that the oxygen level in your blood is too low. If the level stays too low for too long, serious problems can occur in many parts of the body. Supplemental oxygen helps to ease your symptoms and prevent future problems by getting more oxygen to the blood. Depending on your test results, you may need oxygen all the time. Or it may only be needed during certain activities, such as exercise or sleep. When oxygen is prescribed, you???ll be referred toa [employer]. They will set up the oxygen unit and teach you how to use it. Nasal cannula The nasal cannula should be placed under the nose with the prongs curved toward the face. Oxygen is most often inhaled through a nasal cannula. This is a lightweight tube. It has 2 hollow prongs that fit just inside the nose. ?? Types of supplemental oxygen Prescribed oxygen comes in several forms. You may use more than 1 type, depending on when you need oxygen: ??? Compressed oxygen.??This is oxygen gas stored in a tank. The oxygen is stored under pressure. So these tanks must be handled carefully. Gauges on the tank can be used to adjust the oxygen flow rate. Your healthcare provider will figure out what this flow rate should be. Small tanks can be carried. Larger tanks are on wheels. They can be pulled around the house. ??? An oxygen concentrator. ??This is a machine about the size of a large suitcase. It plugs into an electrical outlet. (A back-up??oxygen supply is advised in case of a power outage.) The machine takes oxygen from the air and concentrates it. It???s then delivered to you through plastic tubing. The tubing is long enough so that you can move around the house. When you???re using the concentrator, it must be kept somewhere that has a good supply of fresh air. Don???t keep it in a confined space, like a closet. You may be set up on a concentrator if you need oxygen all the time or while you???re sleeping. You can also get a smaller, lightweight, portable oxygen concentrator to take with you. Many people prefer these to help them continue an active lifestyle. ??? Liquid oxygen.??This results when oxygen gas is cooled to a very low temperature. It???s kept in special containers that stay at this low temperature. When you use liquid oxygen, it???s warmed and becomes gas before reaching the cannula. Most tanks comewith a portable unit that you can carry or pull on a cart. Some of these weigh only a few pounds. Liquid oxygen units are easy to carry around. If you need oxygen all the time or during activity, this kind of unit can help you stay active. ?? Oxygen is prescribed just for you Your healthcare provider will prescribe oxygen based on your needs. Here are a few things you should know: ??? A therapist from the [employer] will explain when to use oxygen and what type to use. You???ll be taught how to use and maintain your oxygen equipment. ??? You must use the exact rate of oxygen prescribed for each activity. Don???t increase or decrease the amount on your own. Ask your healthcare provider first. ??? Supplemental oxygen is a medicine. It???s not addictive.It causes no side effects when used as directed. ?? Last Reviewed Date: 2021 ?? 6745-5949 The [employer]. All rights reserved. This information is not intended as a substitute for professional medical care. Always follow your healthcare professional's instructions. ?? * SPowerscribe , CIS S: TRANSCRIBE Jak Leroy Jr, MD: VERIFY Event Display: Result: Authored Date: [id number] Chest 2 Views Frontal and Lat Reason: Shortness of Breath; Clinical Question(s): Other:; h o swallowing foreign bodies COMPARISON: None. FINDINGS: Image quality is suboptimal due to patient body habitus. LINES AND TUBES: None. LUNGS AND PLEURA: Patient has taken in shallow respiratory effort. HEART, MEDIASTINUM AND ROSA MARIA: Cardiomediastinal silhouette is within normal limits. No evidence of pulmonary vascular redistribution. BONES AND SOFT TISSUES: Mild shaped thoracolumbar scoliosis IMPRESSION: No acute abnormality. WSN: [id number] Ordering Physician: Seth Lan Dictated By: Jak Leroy Jr, MD Dictated Date/Time: 07/06/22 3:15 pm Reviewed By: Jak Leroy Jr, MD Signed By: Jak Leroy Jr, MD Signed Date/Time: 07/06/22 3:15 pm Transcribed By: ROS Transcribed Date/Time: 07/06/22 3:13 pm * Carlos ENGLISH, Princess: PERFORM Event Display: Patient Education/Instruction Authored Date: [id number] Inpatient Adult Discharge Instructions [address] [address] Name: ADILENE MATHEWS : 1995 Visit: 07/05/2022 11:38:00 Current Date: 07/05/2022 17:23 Account: [id number] Inpatient Adult Discharge Instructions We would like [...] and their families. Surveys are administered by [employer] ?? If further treatment with your primary care physician or another doctor is recommended, it is important for you to keep the appointment. Call your primary care physician or return to the Emergency Department immediately if your condition worsens, fails to improve, or new symptoms develop. If you need to find a doctor, you can call [facility] [employer] for a referral at [phone] or toll free at [phone] or log in to [email or web address].. ?? You can view and manage your care through the patient portal or by using a health care lisa of your choosing. [employer] is a website that allows you to securely view your medical information including your hospital discharge summary, office visit summaries, medications and follow-up visits. You can also request appointments, renew medications, and request access to your medical information using a health care lisa of your choosing, or just ask a question. You can enroll at [email or web address] or register during your next office visit. You have been discharged from [facility], Patient Care Unit: [facility]. If you have any questions regarding these instructions after you leave, please call us and we will be happy to assist you. [facility] Your Care Team Attending Physician Little KAPLAN, [place] Discharging Providers Kayleen Quiles MD Reason for Admission pt coming from urgent care was being seen for UTI pt swalloed a bottle cap with diff breathing airway patent speech clear toleratering all secrections Your Diagnosis Foreign body in airway Foreign body in airway Tests Performed Below is a partial list of the tests performed during your hospitalization. You may have had other tests and procedures not included in this list. Please discuss all test results with your provider. COVID-19 (Novel Coronavirus), Rapid PCR?-- Results Pending -- COVID-19 RNA POC XR Chest Portable XR Neck Soft Tissue ? You will be contacted within 72 hours with your results. Primary Care Provider Rojas KAPLAN, [facility] Advance Directive Health Care Proxy on File Yes - Health Care Proxy Discharge Vitals Temperature: 97 DegF Weight: 106.6 kg Pulse Rate: 68 bpm ?? Respiratory Rate: 23 br/min ?? Systolic Blood Pressure: 110 mm Hg ?? Diastolic Blood Pressure: 66 mm Hg ?? Oxygen Saturation:??87 %??Low ?? Studies Pending All tests and labs ordered during this hospital stay have been completed unless listed below. Please discuss all pending results with your provider listed above in these instructions. ?? Basic Metabolic Panel CBC w/ Differential COVID-19 (Novel Coronavirus), Rapid PCR What to do next Instructions From Your Doctor Discharge Orders You Need to Schedule the Following Appointments Follow Up with??[place] Fitch When??Within 1 to 2 weeks Where: [address] [facility] [place] [address]- Business (1) Follow Up with??Galen Xie MD When??In 0 days Where: [address] [place] [address]- Business (1) Discharge Medications ADILENE MATHEWS :1995 Visit Date:07/05/2022 Medications: Please continue your medications until treatment is completed or stopped by your provider. Medications not listed below should be discontinued. Discuss any questions related to medications with your provider. What How Much When Instructions Next Dose Unchanged Acetaminophen (acetaminophen 325 mg oral tablet) 2 tab(s) Oral Daily as needed for pain/fever Unchanged Aripiprazole (ARIPiprazole 5 mg oral tablet) 1 tab(s) Oral Daily Unchanged Atenolol (atenolol 25 mg oral tablet) 1 tab(s) Oral Daily Unchanged Calcium And Vitamin D Combination (calcium (as citrate)-vitamin D 200 mg-250 intl units oral tablet) 1 tab(s) Oral Daily in the morning Unchanged Cholecalciferol (cholecalciferol 2000 intl units oral capsule) 1 capsule Oral Daily Duration: 30 Days Unchanged DiphenhydrAMINE (Benadryl 25 mg oral capsule) 1 capsule Oral Daily as needed for as needed for itching Unchanged Famotidine (famotidine 40 mg oral tablet) 1 tab(s) Oral Daily Unchanged Fluoxetine (FLUoxetine 20 mg oral capsule) 20 Milligram Oral Daily in the morning Duration: 30 Days Unchanged Fluticasone Nasal (fluticasone 50 mcg/ inh nasal spray) 1 spray(s) Nares, Both Daily at Bedtime Unchanged Folic Acid (folic acid 1 mg oral tablet) 1 tab(s) Oral Daily Unchanged HydrOXYzine (hydrOXYzine hydrochloride 25 mg oral tablet) 1 tab(s) Oral Every 12 hours as needed for Agitation/ sleep Unchanged Melatonin (melatonin 10 mg oral tablet) 1 tab(s) Oral Daily at Bedtime as needed for as needed for insomnia Unchanged Mercaptopurine (mercaptopurine 50 mg oral tablet) 1 tab(s) Oral Daily Unchanged Naltrexone (naltrexone 50 mg oral tablet) 1 tab(s) Oral Daily Unchanged [place]-3 Polyunsaturated Fatty Acids ([place]-3 1000 mg oral capsule) 1 capsule Oral 3 times a day Duration: 30 Days Unchanged Polyethylene Glycol 3350 (MiraLax oral powder for reconstitution) 17 gram Oral Daily as needed for as needed dissolve in water before taking ?? Unchanged Silver SulfADIAZINE Topical (silver sulfADIAZINE 1% topical cream) 1/4 ribbon Topically Daily at Bedtime FOR VAGINAL ITCHING ?? Unchanged Sodium Chloride Nasal (Saline Nasal Mist) 2 spays Nares, Both Every 12 hours as needed for as needed for dry nasal passages Unchanged Ustekinumab (Stelara PFS 90 mg/ mL subcutaneous solution) 1 Milliliter Subcutaneous Injection Every 8 Weeks on Fridays ?? Test Results Below is a partial list of the most recent Laboratory test results done prior to this discharge. You may have had other tests and procedures not included in this list. Please discuss all test resultswith your provider. COVID-19 RNA POC (07/05/2022) ???COVID-19 POC Result - NEGATIVE Allergies (NKA means No Known Allergies) Haldol LMX 4 with Tegaderm Problems Active Problems??(11) Anxiety?? Autism spectrum?? Constipation?? Crohn disease?? Dermatitis?? Foreign body in hypopharynx?? Foreign body ingestion?? Pica?? Prader-Willi syndrome?? Prader-Willi syndrome?? Severe obesity?? Education Materials Below is the list of Educational Leaflet Providered with your Discharge Instructions. Upper GI Endoscopy?? Surgery Voiding Instructions?? Surgery Medical Daystay Surgical Overnight Discharge Instructions?? Bronchoscopy Discharge?? Upper GI Endoscopy?? Bronchoscopy Discharge?? Surgery Voiding Instructions?? Surgery Medical Daystay Surgical Overnight Discharge Instructions?? Valuables and Belongings I fully understand and agree that [facility] accepts no responsibility for all my [...] to send valuables and belongings home. ?? Review of Valuable and Belonging List: With patient Date for Pt to Sign Valuables/Belongings: 07/05/22 14:26:00 ?? Valuables & Belongings ?? Clothes Electronic devices Jewelry Monetary Items Personal devices Miscellaneous Medications (Valuables) Valuables at Bedside Pants, Shirt ? Valuables Sent Home ? Valuables Sent to Security ? Other Discharge Information ? Pulmonary Rehab Status?? Pulmonary Rehab Discharge Status?? Respiratory Rate: 23 br/min ? Common Emergency Awareness Tips IS [...] are strongly encouraged to quit. Please call [facility] at [phone] or 9-331-716MySupportAssistant ([phone]) or log in to [email or web address] for referrals to smoking cessation programs. ?? The National Suicide Prevention Hotline is available 19/10 if you or someone you know needs to find a reason to keep living. By calling 6-846-340-zese (7631) you'll be connected to a skilled, trained counselor at a crisis center in your area. INPATIENT DISCHARGE INSTRUCTIONS SIGNATURE PAGE ADILENE MATHEWS Location:[facility] Registration Date and Time:07/05/2022 11:38 EDT Primary Care Physician: Rojas KAPLAN, [facility], I ADILENE MATHEWS, have received the above patient education materials/instructions and have verbalized understanding. If ambulance or transport services are being used I further acknowledge being given a choice of service. ?? If you need to contact me, please call me at this number: . Patient/Grinding Machine Operator Automatic Name: Patient/Grinding Machine Operator Automatic Signature: Relationship to Patient: Witness Name/Signature: Date: Princess Cummins RN: PERFORM, SIGN, VERIFY Event Display: Patient Education Handout Authored Date: [id number] * Princess Gonzalez RN: PERFORM Event Display: Patient Education Leaflets Authored Date: [id number] Upper GI Endoscopy ?? 83971 Upper GI Endoscopy An upper GI endoscopy lets your healthcare provider look right into the beginning of your gastrointestinal (GI) tract. The esophagus, stomach, and the first part of the small intestine (the duodenum)make up the upper GI tract.?? During endoscopy, a long, flexible tube is used to view the inside of your upper GI tract. Before the test Follow these and any other instructions you're given before your endoscopy. If you don???t follow the healthcare provider???s instructions carefully, the test may need to be canceled or done over: ??? Follow any directions you're given for not eating or drinking before your test. In some cases, youmay be able to take medicines with sips of water until 2 hours before the test. Talk with your provi elida about this.? Bring your X-rays and any other test results you have. ??? Because you will be sedated, arrange for an adult to drive you home after the exam. ??? Tell your provider before the exam if you're taking any medicines. This includes any [id number] and prescription medicines, vitamins, herbs, and supplements. Some medicines may be adjusted or stopped before the test. Don't stop any medicine unless directed by your provider. ??? Tell your provider if you have any health problems. ?? The procedure Here is what to expect: ??? You will lie on the endoscopy table. People often lie on their left side. ??? You will be placed on a heart monitor and given oxygen. ??? Your throat may be numbed with a spray or gargle. You're given medicine through an IV (intravenous) line placed in your hand or arm. These medicines will help you relax and stay comfortable. You may be awake and drowsy or asleep during the test. ??? The healthcare provider will put a thin tube (endoscope) in your mouth and down your esophagus.??This tube is thinner than most pieces of food that you swallow. It won't affect your breathing. The medicine helps keep you from gagging. ??? Air is put into your GI tract to expand it. It can make you burp. ??? During the procedure, the healthcare provider can take tissue samples (biopsies) and remove abnormalities such as small bumps or growths (polyps). The provider can also treatabnormalities using tools placed through the endoscope. You won't feel this.? The endoscope car cristobal images of your upper GI tract to a video screen. If you're awake, you may be able to look at the images. ??? After the procedure is done, you'll rest and be monitored for a time. An adult must drive you home. ??? After the procedure, you may feel gassy for a few hours. You may have a sore throat. This should improve in 1 or 2 days. ?? When to call your healthcare provider Call your healthcare provider right away if you have: ??? Black or tarry stools, or blood in your stool ??? Fever of 100.4??F (38??C) or higher, or as directed by your healthcare provider ??? Pain inyour belly that doesn't go away ??? Upset stomach and vomiting, or vomiting blood ?? Last Reviewed Date: 2020 ?? 2696-7138 The [employer]. All rights reserved. This information is not intended as a substitute for professional medical care. Always follow your healthcare professional's instructions. ?? * Princess Gonzalez RN: PERFORM Event Display: Patient Education Leaflets Authored Date: [id number] Surgery Voiding Instructions ?? 305 Home Voiding Instructions ?? You should pass urine 6-8 hours after you are discharged from the [facility] Room. The amount should be about one cup of urine with each voiding. Be aware that you should feel like you are emptying your bladder completely. If you are passing very small amounts of urine frequently it could be over-flow and you may not be emptying your bladder. Things to try to encourage urination: Drink warm coffee or tea ??? unless your physician told you not to. Blow bubble through your straw into a small glass of water. Trickle lukewarm water onto your private area. Walk around as much as able. Let the faucet run slowly. Put your hand in warm water. Try to relax. If you have any concerns about urination, in the above time frame after your discharge, you should call your Doctor. ? * FREYA Ann S: Radha Draper MD: VERIFY Event Display: Result: Authored Date: [id number] Neck Soft Tissue Hx of Present Illness: foriegn body ingestion; Reason: Foreign Body; Clinical Question(s): Foreign Body Location COMPARISON: 06/19/2022 FINDINGS: A frontal view of the soft tissues of the neck is submitted. No lateral view is provided. No radiopaque foreign bodies are seen. The visualized airway is grossly unremarkable. IMPRESSION: Limited examination. There are no radiopaque foreign bodies. WSN: [id number] Ordering Physician: Casandra Bledsoe Dictated By: Radha Mcknight MD Dictated Date/Time: 07/05/22 12:23 p Reviewed By: Radha Mcknight MD Signed By: Radha Mcknight MD Signed Date/Time: 07/05/22 12:23 pm Transcribed By: ROS Transcribed Date/Time: 07/05/22 12:22 pm * FREYA Ann S: Dawit Rosenberg MD: VERIFY Event Display: Result: Authored Date: [id number] Neck Soft Tissue Hx of Present Illness: foriegn body ingestion; Reason: Trauma; Clinical Question(s): Foreign Body Location; Special Instructions: STAT COMPARISON: None FINDINGS: There is a linear radiopacity superimposed on the upper larynx in the lateral projection not visible in the AP view, suspected to represent a structure lying outside the patient. There is no other evidence of a foreign body. Patent nasopharynx. No abnormal adenoidal enlargement. Normal retropharyngeal and retrotracheal soft tissues. Otherwise normal airway. Normal bones. IMPRESSION: Linear radiopacity superimposed on the upper larynx in the lateral view only, suspected to represent an artifact lying outside the patient. However, a repeat lateral projection is recommended with clearing of external structures away from the medial and lateral aspects of the neck. Otherwise normal examination. Findings reviewed with the generation engineering technologist at 2:30 PM. WSN: [id number] Ordering Physician: Breanne Berrios Dictated By: Dawit Roque MD Dictated Date/Time: 07/05/22 2:32 pm Reviewed By: Dawit Roque MD Signed By: Dawit Roque MD Signed Date/Time: 07/05/22 2:32 pm Transcribed By: ROS Transcribed Date/Time: 07/05/22 2:23 pm Portable XR Chest Views * FREYA Ann S: TRANSCRIBE Chevy Mejia MD: VERIFY Event Display: Result: Authored Date: [id number] Chest Portable REASON: Postop; Clinical Question(s): Postop / Postop COMPARISON: Earlier today FINDINGS: LINES AND TUBES: None. LUNGS AND PLEURA: Low lung volumes with mild basilar atelectasis. Lungs are otherwise clear with no definite consolidation. No pleural effusion. No pneumothorax. HEART, MEDIASTINUM AND ROSA MARIA: Heart is normal in size. Normal mediastinal and hilar contour. BONES AND SOFT TISSUES: No acute abnormality. IMPRESSION: No evidence of acute abnormality. WSN: [id number] Ordering Physician: Yoly Hsieh Dictated By: Chevy Mejia MD Dictated Date/Time: 07/05/22 9:09 pm Reviewed By: Chevy Mejia MD Signed By: Chevy Mejia MD Signed Date/Time: 07/05/22 9:09 pm Transcribed By: ROS Transcribed Date/Time: 07/05/22 9:09 pm * FREYA Ann S: TRANSCRIRadha Bourgeois MD: VERIFY Event Display: Result: Authored Date: [id number] Examination: Portable chest performed on 07/05/2022. History: Foreign body ingestion. Shortness of breath. Findings: A frontal view of the chest is compared to a prior study dated 06/19/2022. The cardiac and mediastinal silhouettes are within normal limits. The lungs are clear. No radiopaque foreign bodies are identified. The osseous structures are unremarkable. IMPRESSION: Unremarkable examination. WSN: [id number] Ordering Physician: Casandra Bledsoe Dictated By: Radha Mcknight MD Dictated Date/Time: 07/05/22 12:21 p Reviewed By: Radha Mcknight MD Signed By: Radha Mcknight MD Signed Date/Time: 07/05/22 12:21 pm Transcribed By: CSTrung Transcribed Date/Time: 07/05/22 12:20 pm Patient Care team information Care Team Personnel Name: John Frederick RN Position: [facility] RN Member Role: Primary Care Nurse Name: Anthony Viveros RN Position: [facility] RN Member Role: Primary Care Nurse Name: Galen Xie MD Position: [facility] Physician (General Medicine) Member Role: PCP Address: Address: [address] [place] [address]- Name: Charla Galindo RN Position: [facility] RN Member Role: Primary Care Nurse Name: Julia Sumner Position: [facility] RN Member Role: Primary Care Nurse Name: Bessie Gomes RN Position: [facility] RN Member Role: Primary Care Nurse Name: Ashlie Goodman RN Position: [facility] RN Member Role: Primary Care Nurse Name: Danielle Griffith RN Position: [facility] RN Member Role: Primary Care Nurse Name: Aneta Conte RN Position: [facility] RN Member Role: Primary Care Nurse Name: Carmelina Dunn LPN Position: [facility] RN Member Role: Primary Care Nurse Name: Janay Judd RN Position: [facility] RN Member Role: Primary Care Nurse Name: Brit Gracia RN Position: [facility] RN Member Role: Primary Care Nurse Name: Karma Miller RN Position: [facility] RN Member Role: Primary Care Nurse Name: Brit Flores Position: [facility] ED TA [facility] Name: Ambar Garcia RN Position: [facility] ED RN W/OE and Tasks Member Role: Patient Care Provider Name: Breanne Berrios MD Position: [facility] ED Medicine MD Member Role: ED Attending Physician Address: Address: [address] [place] [id number]- Name: Yandel Serna MD Position: [facility] Resident Member Role: ED Resident Address: Address: [address] [place] [address]- Care Team Related Persons Name: ELIZABETH REES Address: home [address] [place] [id number] Name: ROLAND WILLIAM Address: [place] [address], [place] [address]
--- OUTSIDE RECORDS SUMMARY | 2023-09-23 06:12 | XMS_ITS | Continuity of Care Document ---
Author Organization [facility] ter Address [address] [place] [id number]- Care Team Providers Care Product Engineering Manager Name Role Phone Rojas KAPLAN, Asma Primary Care Physician Encounter [facility] [place] Date(s): 03/21/22 - 03/21/[address] [address]- Encounter Diagnosis Foreign body in throat(Final) - 03/21/22 Discharge Disposition: A-D/C Home Attending Physician: Shalonda Herrera MD Admitting Physician: Shalonda Herrera MD Referring Physician: Not on Staff, Referring [...] 10/21/21 15:28:00 EDT, Route to Pharmacy Electronically, [facility], [place]-[id number], Partial fill upon patient request if the prescription is for a schedule... Start Date: 10/21/21 Status: Ordered atenolol 25 mg oral tablet 25 mg, 1, tablet, By Mouth, Daily, # 30 tablet, Refills 0, Tot. Refills 0, Maintenance, 10/21/21 15:28:00 EDT, Route to Pharmacy Electronically, [facility], Partial fill upon patient request if the prescription is for a schedul... Start Date: 10/21/21 Status: Ordered calcium (as citrate)-vitamin D 200 mg-250 intl units oral tablet 1 tablet, By Mouth, Daily in AM, # 30 tablet, 0 Refills, Maintenance, 10/21/21 15:24:00 EDT, Tablet, [facility]873, Partial fill upon patient request if the prescription is for aschedule II opioid drug., 1 tablet By Mouth Daily i... Start Date: 10/21/21 Status: Ordered cholecalciferol 2000 intl units oral capsule 1 capsule = 50 mcg, By Mouth, Daily, # 30 capsule, 0 Refills, Maintenance, 10/21/21 15:27:00 EDT, Capsule, [facility], Partial fill upon patient request if the [...] 10/21/21 15:30:00 EDT, Route to Pharmacy Electronically, [facility], [place]-[address], Partial fill upon patient request if the prescription is for a schedule II... Start Date: 10/21/21 Stop Date: 11/20/21 Status: Ordered fluticasone 50 mcg/inh nasal spray 1 sprays = 50 mcg, Nares, Both, Daily at bedtime, # 16 Gm, 0 Refills, Maintenance, 10/21/21 15:30:00 EDT, Nasal [place], [facility], [place]- [address], Partial fill upon patient request if the prescription is for a schedule II opioid drug., 1 spray... Start Date: 10/21/21 Status: Ordered folic acid 1 mg oral tablet 1 mg, 1, tablet, By Mouth, Daily, # 30 tablet, Refills 0, Tot. Refills 0, Maintenance, 10/21/21 15:30:00 EDT, Route to Pharmacy Electronically, [facility], [place]-[address], Partial fill upon patient request if the [...] 0 Refills, Maintenance, 10/21/21 15:30:00 EDT, Tablet, [facility], [place]-[address], Partial fill upon patient request if the [...] Tablet, ; Start Date: 12/29/21 Status: Ordered [place]-3 1000 mg oral capsule 1 capsule = 1,000 mg, By Mouth, 3 times a day, # 90 capsule, 0 Refills, Maintenance, 10/21/21 15:27:00 EDT, Capsule, [facility], [place]-[address], Partial fill upon patient request if the [...] Exam Date Time Procedure Performing Provider Status 03/21/22 5:39 PM Abdomen AP Tere , Khang; Auth (Skye ified) Notes: (Abdomen AP) Reason For Exam: Pain RESULT: XR Abdomen AP XR Abdomen AP supine INDICATION: Hx of Present Illness: hx of pica, swallowed plastic ring around cap; Reason: Pain; Clinical Question(s): Obstruction; Special Instructions: Flat. Age 27 years COMPARISON: 02/07/2022. FINDINGS: Normal bowel gas pattern. No evidence of pneumoperitoneum. No evidence of radiopaque foreign body. No acute bone findings.. IMPRESSION: No evidence of a radiopaque foreign body. WSN: [id number] Ordering Physician: Claire Reddy Dictated By: Omer Vogel MD Dictated Date/Time: 03/21/22 5:49 pm Reviewed By: Omer Vogel MD Signed By: Omer Vogel MD Signed Date/Time: 03/21/22 5:49 pm Transcribed By: ROS Transcribed Date/Time: 03/21/22 5:47 pm Vital Signs Most recent to oldest [Reference Range]: 1 2 Oxygen Saturation [94-100 %] 92 % *L* (03/21/22 6:37 PM) 94 % (03/21/22 3:17 PM) Pulse Rate [55-90 bpm] 60 bpm (03/21/22 6:37 PM) 64 bpm (03/21/22 3:17 PM) Blood Pressure [90-138/55-84 mm Hg] 137/ 90mm Hg (03/21/22 6:37 PM) 136/80mm Hg (03/21/22 3:17 PM) Respiratory Rate [16-30 br/min] 18 br/mi n (03/21/22 6:37 PM) 20 br/min (03/21/22 3:17 PM) Temperature [96.8-100.4 DegF] 97.5 DegF (03/21/22 6:37 PM) 97.8 DegF (03/21/22 3:17 PM) Mode of Delivery (Oxygen) Room air (03/21/22 6:37 PM) Room air (03/21/22 3:17 PM) Blood pressure sites Arm, left (03/21/22 6:37 PM) Arm, left (03/21/22 3:17 PM) Temperature Route Oral (03/21/22 6:37 PM) Oral (03/21/22 3:17 PM) Social History Social History Type Response Smoking Status Never (less than 100 in lifetime) entered on: 09/17/20 Sex Note * Claire Reddy MD: PERFORM Event Display: Patient Education Leaflets Authored Date: Foreign Object in the Throat, Removed ?? [id number] Foreign Object in the Throat, Removed Objects that are swallowed can get stuck in the throat (pharynx). This is most common in children, but it can happen in adults as well.??Objects that may become stuck include food, bones, small button batteries, refrigerator magnets, dry dog food, coins, or other small items.??You (or your child)??had an object stuck in the throat.??A stuck object can cause coughing, choking, pain when swallowing, or trouble swallowing. If the object is dangerous (such as a battery) or blocks breathing, it may need emergency removal. The object has been removed. You are being sent home to recover. For a day or so, it may continue to feel like something is stuck in the throat. It may also hurt to swallow. This is because the throat tissues were irritated and injured. Symptoms should start to get better??as the tissue heals. Home care ??? Removing a stuck object often requires a sedative medicine. This causes drowsiness. After getting sedation, don't drive or use dangerous equipment??for at least 24 hours. ??? If swallowing is painful, drink liquids and eat soft foods until it gets better.? Your healthcare provider may prescribe an anti-inflammatory medicine to ease pain and swelling. Follow your provider's instructions for taking the medicine. To prevent stuck objects in the future: ??? Cut food into small pieces that are no longer than ?? inch. Chew well. Don't talk or laugh while you have food in your mouth. ??? Be careful when eating fish or other food with bones. ??? Be careful with foods that may become stuck, such as raisins, grapes, nuts, hot dog skin, and hard candies. Don't give these to young children, especially children younger than 4 years old. ??? Don't let your child play with small objects that can be swallowed, such as small toys, balloons, buttons, or coins. ??? If swallowing pills is an issue, ask the healthcare provider for a medicine that comes in smaller pill form or a liquid form. ?? Follow-up care Follow up with your healthcare provider, or as advised. ?? When to seek medical advice Call the healthcare provider if any of the following occur: ??? Fever of??100.4??F (38??C)??or higher, or as directed by the provider ??? Throat pain that??doesn't improve or gets worse ??? Continuedtrouble swallowing, choking, or other symptoms ??? Inability to open the mouth wide due to pain ???Inability to eat or drink, or refusal to eat or drink ??? Drooling or inability to swallow saliva ??? Trouble breathing, noisy breathing, or a muffled voice ??? Increased pain with neck movement ??? Nausea or vomiting ??? Belly (abdominal) pain ??? Bloody bowel movements ?? Last Reviewed Date: 2019 ?? 3502-6479 [employer]. All rights reserved. This information is not intended as a substitute for professional medical care. Always follow your healthcare professional's instructions. ?? XR Abdomen AP * [facility]erscribe , CIS S: TRANSCRIBE Ersahin MD, Devrim: VERIFY Event Display: Result: Authored Date: [id number] XR Abdomen AP supine INDICATION: Hx of Present Illness: hx of pica, swallowed plastic ring around cap; Reason: Pain; Clinical Question(s): Obstruction; Special Instructions: Flat. Age 27 years COMPARISON: 02/07/2022. FINDINGS: Normal bowel gas pattern. No evidence of pneumoperitoneum. No evidence of radiopaque foreign body. No acute bone findings.. IMPRESSION: No evidence of a radiopaque foreign body. WSN: [id number] Ordering Physician: Claire Reddy Dictated By: Omer Vogel MD Dictated Date/Time: 03/21/22 5:49 pm Reviewed By: Omer Vogel MD Signed By: Omer Vogel MD Signed Date/Time: 03/21/22 5:49 pm Transcribed By: ROS Transcribed Date/Time: 03/21/22 5:47 pm Patient Care team information Care Team Personnel Name: John Frederick RN Position: [facility] RN Member Role: Primary Care Nurse Name: Anthony Viveros RN Position: [facility] RN Member Role: Primary Care Nurse Name: Galen Xie MD Position: [facility] Physician (General Medicine) Member Role: PCP Address: Address: [facility] [address] Name: Bessie Gomes RN Position: [facility] RN Member Role: Primary Care Nurse Name: Ashlie Goodman RN Position: [facility] ED RN W/OE and Tasks Member Role: Primary Care Nurse Name: Man [...] RN Member Role: Primary Care Nurse Name: Carline Moore RN Position: [facility] ED RN W/OE and Tasks Member Role: Patient Care Provider Name: Shalonda Herrera MD Position: [facility] ED Medicine MD Member Role: Admitting Physician Address: Address: [address] [place] [address]- Name: Claire Reddy MD Position: [facility] Resident Member Role: ED Resident Address: Address: [address] [place] [address]- Care Team Related Persons Name: ELIZABETH REES Address: home [address] [place] [id number] Name: ROLAND WILLIAM Address: home [address] [place] [address]
--- OUTSIDE RECORDS SUMMARY | 2023-09-23 06:12 | XMS_ITS | Continuity of Care Document ---
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 Start Date: 10/21/21 Status: Ordered atenolol 25 mg oral tablet 25 mg, 1, tablet, By Mouth, Daily, # 30 tablet, Refills 0, Tot. Refills 0, Maintenance, 10/21/21 15:28:00 EDT, Route to Pharmacy Electronically, [facility]-[address], Partial fill upon patient request if the [...] 0 Refills, Maintenance, 10/21/21 15:24:00 EDT, Tablet, [facility]-[address], Partial fill upon patient request if the prescription is for aschedule II opioid drug., 1 tablet By Mouth Daily i... Start Date: 10/21/21 Status: Ordered cholecalciferol 2000 intl units oral capsule 1 capsule = 50 mcg, By Mouth, Daily, # 30 capsule, 0 Refills, Maintenance, 10/21/21 15:27:00 EDT, Capsule, [facility]-[address], Partial fill upon patient request if the [...] 10/21/21 15:30:00 EDT, Route to Pharmacy Electronically, [facility]-[address], Partial fill upon patient request if the prescription is for a schedule II... Start Date: 10/21/21 Stop Date: 11/20/21 Status: Ordered fluticasone 50 mcg/inh nasal spray 1 sprays = 50 mcg, Nares, Both, Daily at bedtime, # 16 Gm, 0 Refills, Maintenance, 10/21/21 15:30:00 EDT, Nasal [place], [facility]- [address], Partial fill upon patient request if the prescription is for a schedule II opioid drug., 1 spray... Start Date: 10/21/21 Status: Ordered folic acid 1 mg oral tablet 1 mg, 1, tablet, By Mouth, Daily, # 30 tablet, Refills 0, Tot. Refills 0, Maintenance, 10/21/21 15:30:00 EDT, Route to Pharmacy Electronically, [facility]-[address]83, Partial fill upon patient request if the [...] 0 Refills, Maintenance, 10/21/21 15:30:00 EDT, Tablet, [facility]-[address], Partial fill upon patient request if the [...] Tablet, ; Start Date: 12/29/21 Status: Ordered [place]-3 1000 mg oral capsule 1 capsule = 1,000 mg, By Mouth, 3 times a day, # 90 capsule, 0 Refills, Maintenance, 10/21/21 15:27:00 EDT, Capsule, [facility]-[address], Partial fill upon patient request if the [...] Exam Date Time Procedure Performing Provider Status 07/21/22 5:32 PM Chest 2 Views Frontal and Lat Arturo Roberts; Farida (Verified) Notes: (Chest 2 Views Frontal and Lat) Reason For Exam: Chest Pain;Other: RESULT: Chest 2 Views Frontal and Lat Chest 2 Views Frontal and Lat Hx of Present Illness: Pt resides in a [facility], had a DDS worker visit this am and noticed pt had blue lips , is more lethargic, had trouble getting out of bed today, O2 sat's mid-high 90's on 2LNC. Recommended pt come to ED to get evaluated. Pt has significant pica HX.; Reason: Other:; Chest Pain; Clinical Question(s): Other: COMPARISON: Multiple prior chest x-rays, the most recent of which is dated 07/06/2022. FINDINGS: LINES AND TUBES: None. LUNGS AND PLEURA: Clear lungs. Normal pulmonary vascularity. No pleural effusion. No pneumothorax. HEART, MEDIASTINUM AND ROSA MARIA: Heart is normal in size. Normal mediastinal and hilar contour. BONES AND SOFT TISSUES: No acute abnormality. IMPRESSION: No acute abnormality. WSN: [id number] Ordering Physician: Luisa Elam Dictated By: Jordana Amato MD Dictated Date/Time: 07/21/22 5:37 pm Reviewed By: Jordana Amato MD Signed By: Jordana Amato MD Signed Date/Time: 07/21/22 5:37 pm Transcribed By: ROS Transcribed Date/Time: 07/21/22 5:34 pm Vital Signs Most recent to oldest [Reference Range]: 1 2 3 Oxygen Saturation [94-100 %] 92 % *L* (07/21/22 8:05 PM) 99 % (07/21/22 4:12 PM) 98 % (07/21/22 3:55 PM) Pulse Rate [55-90 bpm] 59 bpm (07/21/22 8:05 PM) 69 bpm (07/21/22 4:12 PM) 79 bpm (07/21/22 3:55 PM) Blood Pressure [90-138/55-84 mm Hg] 107/73mm Hg (07/21/22 8:05 PM) 124/78mm Hg (07/21/22 4:12 PM) Respiratory Rate [16-30 br/min] 18 br/min (07/21/22 8:05 PM) 18 br/min (07/21/22 4:12 PM) Temperature [96.8-100.4 DegF] 97.7 DegF (07/21/22 8:05 PM) 97.7 DegF (07/21/22 4:12 PM) Liters per Minute 2 L/min (07/21/22 8:05 PM) 2 L/min (07/21/22 3:55 PM) Mode of Delivery (Oxygen) Nasal cannula (07/21/22 8:05 PM) Nasal cannula (07/21/22 4:12 PM) Nasal cannula (07/21/22 3:55 PM) Blood pressure sites Arm, right (07/21/22 8:05 PM) Arm, right (07/21/22 4:12 PM) Temperature Route Oral (07/21/22 8:05 PM) Axillary (07/21/22 4:12 PM) Social History Social History Type Response Smoking Status Never (less than 100 in lifetime) entered on: 09/17/20 Sex Note * [facility]SP[facility]ers[employer] , CIS S: TRANSCRIBE Jordana Amato MD: VERIFY Event Display: Result: Authored Date: [id number] Chest 2 Views Frontal and Lat Hx of Present Illness: Pt resides in a [facility], had a DDS worker visit this am and noticed pt had blue lips , is more lethargic, had trouble getting out of bed today, O2 sat's mid-high 90's on 2LNC. Recommended pt come to ED to get evaluated. Pt has significant pica HX.; Reason: Other:; Chest Pain; Clinical Question(s): Other: COMPARISON: Multiple prior chest x-rays, the most recent of which is dated 07/06/2022. FINDINGS: LINES AND TUBES: None. LUNGS AND PLEURA: Clear lungs. Normal pulmonary vascularity. No pleural effusion. No pneumothorax. HEART, MEDIASTINUM AND ROSA MARIA: Heart is normal in size. Normal mediastinal and hilar contour. BONES AND SOFT TISSUES: No acute abnormality. IMPRESSION: No acute abnormality. WSN: [id number] Ordering Physician: Luisa Elam Dictated By: Jordana Amato MD Dictated Date/Time: 07/21/22 5:37 pm Reviewed By: Jordana Amato MD Signed By: Jordana Amato MD Signed Date/Time: 07/21/22 5:37 pm Transcribed By: ROS Transcribed Date/Time: 07/21/22 5:34 pm Patient Care team information Care Team Personnel Name: John Frederick RN Position: S RN Member Role: Primary Care Nurse Name: Anthony Viveros RN Position: S RN Member Role: Primary Care Nurse Name: Galen Xie MD Position: [facility] Physician (General Medicine) Member Role: PCP Address: Address: [facility] [place] [address] Name: Charla Galindo RN Position: S RN Member Role: Primary Care Nurse Name: Julia Sumner Position: [facility] RN Member Role: Primary Care Nurse Name: Bessie Gomes RN Position: [facility] RN Member Role: Primary Care Nurse Name: Ashlie Goodman RN Position: [facility] RN Member Role: Primary Care Nurse Name: Danielle Griffith RN Position: [facility] RN Member Role: Primary Care Nurse Name: Aneta Conte RN Position: [facility] RN Member Role: Primary Care Nurse Name: Carmelina Dunn LPN Position: [facility] RN Member Role: Primary Care Nurse Name: Janay Judd RN Position: [facility] RN Member Role: Primary Care Nurse Name: Brit Gracia RN Position: [facility] RN Member Role: Primary Care Nurse Name: Karma Miller RN Position: [facility] RN Member Role: Primary Care Nurse Name: Estefani Wilson RN Position: [facility] ED RN W/OE and Tasks Member Role: Patient Care Provider Name: Luisa Elam DO Position: [facility] ED Medicine MD Member Role: Admitting Physician Address: Address: [address] [place] [address]- Name: Burke Danielle Position: [facility] ED TA [facility] Member Role: Fuel Handler Name: Grace Monroy RN Position: [facility] ED RN W/OE and Tasks Member Role: Patient Care Provider Name: Dawit Trammell DO Position: [facility] Resident Member Role: Resident Address: Address: [address] [place] [address]- Care Team Related Persons Name: ELIZABETH REES Address: home [address] [place] [address] Name: MELO KUMAR Address: home [address] [place] [address] Name: ROLAND WILLIAM Address: home [address] [place] [address]
--- OUTSIDE RECORDS SUMMARY | 2023-09-23 06:12 | XMS_ITS | Continuity of Care Document ---
Author Organization [facility] ter Address [address] [place] [address]- Care Team Providers Care Box Coverer Hand Name Role Phone Rojas KAPLAN, Asma Primary Care Physician [phone] Encounter [facility] Date(s): 06/19/22 - 06/19/[address] [address]- Encounter Diagnosis Foreign body ingestion(Final) - 06/19/22 Discharge Disposition: A-D/C Home Attending Physician: Michael Shelley MD Admitting Physician: Michael Shelley MD Referring Physician: Not on Staff, Referring [...] 10/21/21 15:28:00 EDT, Route to Pharmacy Electronically, [facility], [place]-[id number], Partial fill upon patient request if the prescription is for a schedule... Start Date: 10/21/21 Status: Ordered atenolol 25 mg oral tablet 25 mg, 1, tablet, By Mouth, Daily, # 30 tablet, Refills 0, Tot. Refills 0, Maintenance, 10/21/21 15:28:00 EDT, Route to Pharmacy Electronically, [facility], [place] [place] [id number], Partial fill upon patient request if the prescription is for a schedul... Start Date: 10/21/21 Status: Ordered calcium (as citrate)-vitamin D 200 mg-250 intl units oral tablet 1 tablet, By Mouth, Daily in AM, # 30 tablet, 0 Refills, Maintenance, 10/21/21 15:24:00 EDT, Tablet, [facility], [place] [place] [id number], Partial fill upon patient request if the prescription is for aschedule II opioid drug., 1 tablet By Mouth Daily i... Start Date: 10/21/21 Status: Ordered cholecalciferol 2000 intl units oral capsule 1 capsule = 50 mcg, By Mouth, Daily, # 30 capsule, 0 Refills, Maintenance, 10/21/21 15:27:00 EDT, Capsule, [facility], [place] [place] [id number], Partial fill upon patient request if the [...] 10/21/21 15:30:00 EDT, Route to Pharmacy Electronically, [facility], [place] [place] [facility]-[id number], Partial fill upon patient request if the prescription is for a schedule II... Start Date: 10/21/21 Stop Date: 11/20/21 Status: Ordered fluticasone 50 mcg/inh nasal spray 1 sprays = 50 mcg, Nares, Both, Daily at bedtime, # 16 Gm, 0 Refills, Maintenance, 10/21/21 15:30:00 EDT, Nasal Table [place], [facility], [place] [place] [facility]- [id number], Partial fill upon patient request if the prescription is for a schedule II opioid drug., 1 spray... Start Date: 10/21/21 Status: Ordered folic acid 1 mg oral tablet 1 mg, 1, tablet, By Mouth, Daily, # 30 tablet, Refills 0, Tot. Refills 0, Maintenance, 10/21/21 15:30:00 EDT, Route to Pharmacy Electronically, [facility], [place] [place] [facility]-[id number], Partial fill upon patient request if the [...] 0 Refills, Maintenance, 10/21/21 15:30:00 EDT, Tablet, [facility], [place] [place] [facility]-[id number], Partial fill upon patient request if the [...] Tablet, ; Start Date: 12/29/21 Status: Ordered [place]-3 1000 mg oral capsule 1 capsule = 1,000 mg, By Mouth, 3 times a day, # 90 capsule, 0 Refills, Maintenance, 10/21/21 15:27:00 EDT, Capsule, [facility], [place] [place] [facility]-[id number], Partial fill upon patient request if the [...] Exam Date Time Procedure Performing Provider Status 06/19/22 8:05 AM Abdomen AP Eddie , Delaney; Auth (Skye ified) Notes: (Abdomen AP) Reason For Exam: Foreign Body RESULT: XR Abdomen AP XR Abdomen AP 1 view INDICATION/CLINICAL QUESTION: Hx of Present Illness: Hx Pica. Ate bandaid that fell off her knee. Pt reports having the urge to eat the bandaid when she saw it.; Reason: Foreign Body; Clinical Question(s): Foreign Body COMPARISON: 05/09/2022 FINDINGS: Normal bowel gas pattern. No evidence of obstruction. No evidence of pneumoperitoneum. No organomegaly, masses or calcifications. No acute bone findings. IMPRESSION: No radiopaque foreign body. A lucent or isodense foreign body may not be visible. WSN: [id number] Ordering Physician: Dylan Redding Dictated By: Elizabeth Hawk MD Dictated Date/Time: 06/19/22 8:17 am Reviewed By: Elizabeth Hawk MD Signed By: Elizabeth Hawk MD Signed Date/Time: 06/19/22 8:17 am Transcribed By: ROS Transcribed Date/Time: 06/19/22 8:17 am * Exam Date Time Procedure Performing Provider Status 06/19/22 8:05 AM Neck Soft Tissue Eddie , Delaney; Auth (Verified) Notes: (Neck Soft Tissue) Reason For Exam: Foreign Body RESULT: Neck Soft Tissue Neck Soft Tissue Hx of Present Illness: Hx Pica. Ate bandaid that fell off her knee. Pt reports having the urge to eat the bandaid when she saw it.; Reason: Foreign Body; Clinical Question(s): Other:; FB; Order Comment: COMPARISON: None FINDINGS: Patent nasopharynx. No abnormal adenoidal enlargement. Normal retropharyngeal and retrotracheal soft tissues. Normal airway. No radiodense foreign body. Normal bones. IMPRESSION: Normal. No radiodense foreign body. A lucent or isodense foreign body may not be visible. WSN: [id number] Ordering Physician: Dylan Redding Dictated By: Elizabeth Hawk MD Dictated Date/Time: 06/19/22 8:16 am Reviewed By: Elizabeth Hawk MD Signed By: Elizabeth Hawk MD Signed Date/Time: 06/19/22 8:16 am Transcribed By: ROS Transcribed Date/Time: 06/19/22 8:16 am * Exam Date Time Procedure Performing Provider Status 06/19/22 8:05 AM Chest 2 Views Frontal and Lat Eddie , Delaney; Auth (Verified) Notes: (Chest 2 Views Frontal and Lat) Reason For Exam: Foreign Body RESULT: Chest 2 Views Frontal and Lat Chest 2 Views Frontal and Lat Hx of Present Illness: Hx Pica. Ate bandaid that fell off her knee. Pt reports having the urge to eat the bandaid when she saw it.; Reason: Foreign Body; Clinical Question(s): Foreign Body COMPARISON: 06/13/2022.. FINDINGS: LINES AND TUBES: None. LUNGS AND PLEURA: Clear lungs. Normal pulmonary vascularity. No pleural effusion. No pneumothorax. HEART, MEDIASTINUM AND ROSA MARIA: Heart is normal in size. Normal mediastinal and hilar contour. BONES AND SOFT TISSUES: No acute abnormality. No radiopaque foreign body. IMPRESSION: No acute abnormality. No radiopaque foreign body. A lucent or isodense foreign body may not be visible. WSN: [id number] Ordering Physician: Dylan Redding Dictated By: Elizabeth Hawk MD Dictated Date/Time: 06/19/22 8:17 am Reviewed By: Elizabeth Hwak MD Signed By: Elizabeth Hawk MD Signed Date/Time: 06/19/22 8:17 am Transcribed By: ROS Transcribed Date/Time: 06/19/22 8:15 am Vital Signs Most recent to oldest [Reference Range]: 1 2 Oxygen Saturation [94-100 %] 96 % (06/19/22 8:31 AM) 95 % (06/19/22 7:42 AM) Pulse Rate [55-90 bpm] 84 bpm (06/19/22 8:31 AM) 86 bpm (06/19/22 7:42 AM) Blood Pressure [90-138/55-84 mm Hg] 118/ 64mm Hg (06/19/22 8:31 AM) 116/66mm Hg (06/19/22 7:42 AM) Respiratory Rate [16-30 br/min] 18 br/mi n (06/19/22 8:31 AM) 18 br/min (06/19/22 7:42 AM) Temperature [96.8-100.4 DegF] 98.0 DegF (06/19/22 8:31 AM) 98.2 DegF (06/19/22 7:42 AM) Mode of Delivery (Oxygen) Room air (06/19/22 8:31 AM) Room air (06/19/22 7:42 AM) Blood pressure sites Arm, left (06/19/22 8:31 AM) Arm, left (06/19/22 7:42 AM) Temperature Route Oral (06/19/22 8:31 AM) Oral (06/19/22 7:42 AM) Social History Social History Type Response Smoking Status Never (less than 100 in lifetime) entered on: 09/17/20 Sex Note * [facility] , CIS S: TRANSCRIBE Kenn KAPLAN, Elizabeth N: VERIFY Event Display: Result: Authored Date: Neck Soft Tissue Hx of Present Illness: Hx Pica. Ate bandaid that fell off her knee. Pt reports having the urge to eat the bandaid when she saw it.; Reason: Foreign Body; Clinical Question(s): Other:; FB; Order Comment: COMPARISON: None FINDINGS: Patent nasopharynx. No abnormal adenoidal enlargement. Normal retropharyngeal and retrotracheal soft tissues. Normal airway. No radiodense foreign body. Normal bones. IMPRESSION: Normal. No radiodense foreign body. A lucent or isodense foreign body may not be visible. WSN: [id number] Ordering Physician: Dylan Redding Dictated By: Elizabeth Hawk MD Dictated Date/Time: 06/19/22 8:16 am Reviewed By: Elizabeth Hawk MD Signed By: Elizabeth Hawk MD Signed Date/Time: 06/19/22 8:16 am Transcribed By: ROS Transcribed Date/Time: 06/19/22 8:16 am * FREYA Ann S: Elizabeth Jiménez MD: VERIFY Event Display: Result: Authored Date: [id number] Chest 2 Views Frontal and Lat Hx of Present Illness: Hx Pica. Ate bandaid that fell off her knee. Pt reports having the urge to eat the bandaid when she saw it.; Reason: Foreign Body; Clinical Question(s): Foreign Body COMPARISON: 06/13/2022.. FINDINGS: LINES AND TUBES: None. LUNGS AND PLEURA: Clear lungs. Normal pulmonary vascularity. No pleural effusion. No pneumothorax. HEART, MEDIASTINUM AND ROSA MARIA: Heart is normal in size. Normal mediastinal and hilar contour. BONES AND SOFT TISSUES: No acute abnormality. No radiopaque foreign body. IMPRESSION: No acute abnormality. No radiopaque foreign body. A lucent or isodense foreign body may not be visible. WSN: [id number] Ordering Physician: Dylan Redding Dictated By: Elizabeth Hawk MD Dictated Date/Time: 06/19/22 8:17 am Reviewed By: Elizabeth Hawk MD Signed By: Elizabeth Hawk MD Signed Date/Time: 06/19/22 8:17 am Transcribed By: ROS Transcribed Date/Time: 06/19/22 8:15 am XR Abdomen AP * FREYA Ann S: Elizabeth Jiménez MD: VERIFY Event Display: Result: Authored Date: [id number] XR Abdomen AP 1 view INDICATION/CLINICAL QUESTION: Hx of Present Illness: Hx Pica. Ate bandaid that fell off her knee. Pt reports having the urge to eat the bandaid when she saw it.; Reason: Foreign Body; Clinical Question(s): Foreign Body COMPARISON: 05/09/2022 FINDINGS: Normal bowel gas pattern. No evidence of obstruction. No evidence of pneumoperitoneum. No organomegaly, masses or calcifications. No acute bone findings. IMPRESSION: No radiopaque foreign body. A lucent or isodense foreign body may not be visible. WSN: [id number] Ordering Physician: Dylan Redding Dictated By: Elizabeth Hawk MD Dictated Date/Time: 06/19/22 8:17 am Reviewed By: Elizabeth Hawk MD Signed By: Elizabeth Hawk MD Signed Date/Time: 06/19/22 8:17 am Transcribed By: ROS Transcribed Date/Time: 06/19/22 8:17 am Patient Care team information Care Team Personnel Name: John Frederick RN Position: [facility] RN Member Role: Primary Care Nurse Name: Anthony Viveros RN Position: [facility] RN Member Role: Primary Care Nurse Name: Galen Xie MD Position: [facility] Physician (General Medicine) Member Role: PCP Address: Address: [address] [place] [address]- Name: Julia Sumner Position: [facility] RN Member Role: Primary Care Nurse Name: Bessie Gomes RN Position: [facility] RN Member Role: Primary Care Nurse Name: Ashlie Goodman RN Position: [facility] RN Member Role: Primary Care Nurse Name: Danielle Griffith RN Position: [facility] RN Member Role: Primary Care Nurse Name: Aneta Conte RN Position: [facility] RN Member Role: Primary Care Nurse Name: Carmelina Dunn LPN Position: [facility] RN Member Role: Primary Care Nurse Name: Janay Judd RN Position: [facility] RN Member Role: Primary Care Nurse Name: Brit Gracia RN Position: [facility] RN Member Role: Primary Care Nurse Name: Karma Miller RN Position: [facility] RN Member Role: Primary Care Nurse Name: Celeste Daniels RN Position: [facility] ED RN W/OE and Tasks Member Role: Patient Care Provider Name: Michael Shelley MD Position: [facility] ED Medicine MD Member Role: Admitting Physician Address: Address: [address] [place] [address]- [place] Name: Dylan Redding DO Position: [facility] Resident Member Role: ED Resident Address: Address: [address] [place] [address], [place] [address]- [place] Name: Rekha Santo Position: [facility] ED [facility] Member Role: Helicopter Engineer Name: Sorin Leggett Position: [facility] ED [facility] Member Role: Patient Care Provider Care Team Related Persons Name: ELIZABETH REES Address: [address] [place] [id number] Name: ROLAND WILLIAM Address: [address] [place] [id number]
--- OUTSIDE RECORDS SUMMARY | 2023-09-23 06:12 | XMS_ITS | Continuity of Care Document ---
Author Organization [facility] ter Address [address] [place] [id number]- Care Team Providers Care Edm Operator Name Role Phone Rojas KAPLAN, Asma Primary Care Physician Encounter [facility] Date(s): 02/07/22 - 02/08/[address] [address]- Encounter Diagnosis Foreign body in throat(Final) - 02/06/22 Discharge Disposition: A-D/C Home Attending Physician: Andrew KAPLAN, Shirley Connelly Admitting Physician: Lauro KAPLAN, Glenn P Referring Physician: Not on Staff, Referring MD [...] 15:28:00 EDT, Route to Pharmacy Electronically, [facility]-[address], Partial fill upon patient request if the prescription is for a schedule... Start Date: 10/21/21 Status: Ordered atenolol 25 mg oral tablet 25 mg, 1, tablet, By Mouth, Daily, # 30 tablet, Refills 0, Tot. Refills 0, Maintenance, 10/21/21 15:28:00 EDT, Route to Pharmacy Electronically, [facility], Partial fill upon patient request if the prescription is for a schedul... Start Date: 10/21/21 Status: Ordered calcium (as citrate)-vitamin D 200 mg-250 intl units oral tablet 1 tablet, By Mouth, Daily in AM, # 30 tablet, 0 Refills, Maintenance, 10/21/21 15:24:00 EDT, Tablet, [facility], Partial fill upon patient request if the prescription is for aschedule II opioid drug., 1 tablet By Mouth Daily i... Start Date: 10/21/21 Status: Ordered cholecalciferol 2000 intl units oral capsule 1 capsule = 50 mcg, By Mouth, Daily, # 30 capsule, 0 Refills, Maintenance, 10/21/21 15:27:00 EDT, Capsule, [facility]-[address]245, Partial fill upon patient request if the [...] 15:30:00 EDT, Route to Pharmacy Electronically, [facility]-[address], Partial fill upon patient request if the prescription is for a schedule II... Start Date: 10/21/21 Stop Date: 11/20/21 Status: Ordered fluticasone 50 mcg/inh nasal spray 1 sprays = 50 mcg, Nares, Both, Daily at bedtime, # 16 Gm, 0 Refills, Maintenance, 10/21/21 15:30:00 EDT, Nasal [place], [facility]- [address], Partial fill upon patient request if the prescription is for a schedule II opioid drug., 1 spray... Start Date: 10/21/21 Status: Ordered folic acid 1 mg oral tablet 1 mg, 1, tablet, By Mouth, Daily, # 30 tablet, Refills 0, Tot. Refills 0, Maintenance, 10/21/21 15:30:00 EDT, Route to Pharmacy Electronically, [facility]-[address]390, Partial fill upon patient request if the [...] Refills, Maintenance, 10/21/21 15:30:00 EDT, Tablet, [facility]-16418, Partial fill upon patient request if the [...] Tablet, ; Start Date: 12/29/21 Status: Ordered Mcgregor-3 1000 mg oral capsule 1 capsule = 1,000 mg, By Mouth, 3 times a day, # 90 capsule, 0 Refills, Maintenance, 10/21/21 15:27:00 EDT, Capsule, [facility]-[address], Partial fill upon patient request if the [...] Exam Date Time Procedure Performing Provider Status 02/07/22 7:48 AM Abdomen AP Bethany Diallo; Auth (Verified) Notes: (Abdomen AP) Reason For Exam: Foreign Body RESULT: XR Abdomen AP XR Abdomen AP 1 view INDICATION/CLINICAL QUESTION: Reason: Foreign Body; Clinical Question(s): Foreign Body COMPARISON: 11/24/2021. FINDINGS: There is no evidence of a radiopaque foreign body. There is a nonobstructed bowel gas pattern. No acute bone findings. IMPRESSION: There is no evidence of a radiopaque foreign body. WSN: [id number] Ordering Physician: Shirley Morales Dictated By: Carol Ann Bustos MD Dictated Date/Time: 02/07/22 9:23 am Reviewed By: Caro lAnn Bustos MD Signed By: Carol Ann Bustos MD Signed Date/Time: 02/07/22 9:23 am Transcribed By: ROS Transcribed Date/Time: 02/07/22 9:21 am * Exam Date Time Procedure Performing Provider Status 02/07/22 2:54 AM Chest Portable Piedad Tidwell; Auth (Verified) Notes: (Chest Portable) Reason For Exam: Shortness of Breath RESULT: Chest Portable Chest Portable Hx of Present Illness: Pt from nursing home Hx of Pica swallow a cap from [place]- nase. Pt INAD negative stridor, pt C O sore throat; Reason: Shortness of Breath; Clinical Question(s): Pneumonia COMPARISON: 02/06/2022. FINDINGS: LINES AND TUBES: None. LUNGS AND PLEURA: Hyperexpanded lungs without evidence of focal airspace disease. No pleural effusion. No pneumothorax. HEART, MEDIASTINUM AND ROSA MARIA: Prominent cardiomediastinal silhouette. BONES AND SOFT TISSUES: No acute abnormality. IMPRESSION: Prominent cardiomediastinal silhouette. WSN: [id number] Ordering Physician: Rosie Méndez Dictated By: Carol Ann Bustos MD Dictated Date/Time: 02/07/22 8:15 am Reviewed By: Carol Ann Bustos MD Signed By: Carol Ann Bustos MD Signed Date/Time: 02/07/22 8:15 am Transcribed By: ROS Transcribed Date/Time: 02/07/22 4:44 am * Exam Date Time Procedure Performing Provider Status 02/07/22 12:[address] Soft Tissue Neck W/O Contrast Stupak , [place]; Auth (Verified) Notes: (CT Soft Tissue Neck W/O Contrast) Reason For Exam: Other: RESULT: CT Soft Tissue Neck W/O Contrast CT Soft Tissue Neck W/O Contrast HISTORY: Foreign body. TECHNIQUE: Helical CT neck without contrast formatted in 3 planes. Weight-based protocol using automatic tube modulation was used to optimize exposure parameters. CTDIvol Body: 16.20 mGy, DLP Body: 468 mGy*cm. COMPARISON: 10/08/2021. FINDINGS: [employer] Technician View Findings, Lines and Tubes: None. Lower intracranial contents: No abnormalities are seen involving the portions of brain and extra-axial spaces included on the exam. Cervical Lymph Nodes: Normal in size. Paranasal Sinuses: Mild thickening right maxillary sinus. Left inferior turbinectomy. Mucosal Surfaces: 3.2 cm cylinder shaped foreign body lodged in the hypopharynx, at the level of the epiglottis. Vocal Cords: Normal. Salivary Glands: Normal. Vascular Structures: Grossly unremarkable. Thyroid Gland: Normal CT appearance. Upper mediastinum and lung apices: Normal. Bones: No focal abnormalities IMPRESSION: 3.2 cm cylinder shaped foreign body lodged in the hypopharynx, consistent with history of fluticasone cap swallowing. I have personally reviewed the images and I agree with this report. WSN: [id number] Ordering Physician: Dylan Redding Dictated By: Turner Nguyen MD Dictated Date/Time: 02/07/22 5:54 am Reviewed By: Jordana Amato MD Signed By: Jordana Amato MD Signed Date/Time: 02/07/22 5:59 am Transcribed By: ROS Transcribed Date/Time: 02/07/22 0:23 am * Exam Date Time Procedure Performing Provider Status 02/06/22 10:37 PM Neck Soft Tissue Amarilis Montilla; Au th (Verified) Notes: (Neck Soft Tissue) Reason For Exam: Foreign Body RESULT: Neck Soft Tissue Neck Soft Tissue Hx of Present Illness: Pt from nursing home Hx of Pica swallow a cap from [place]- nase. Pt INAD negative stridor, pt C O sore throat; Reason: Foreign Body; Clinical Question(s): Foreign Body Location COMPARISON: None FINDINGS: Patent nasopharynx. No abnormal adenoidal enlargement. Normal retropharyngeal and retrotracheal soft tissues. Normal airway. Normal bones. IMPRESSION: No radiopaque foreign body identified. WSN: [id number] Ordering Physician: Dylan Redding Dictated By: Juan Denney MD Dictated Date/Time: 02/06/22 10:40 p Reviewed By: Juan Denney MD Signed By: Juan Denney MD Signed Date/Time: 02/06/22 10:40 pm Transcribed By: ROS Transcribed Date/Time: 02/06/22 10:39 pm * Exam Date Time Procedure Performing Provider Status 02/06/22 10:37 PM Chest 2 Views Frontal and Lat Amarilis Montilla; Auth (Verified) Notes: (Chest 2 Views Frontal and Lat) Reason For Exam: Foreign Body RESULT: Chest 2 Views Frontal and Lat Chest 2 Views Frontal and Lat Hx of Present Illness: Pt from nursing home Hx of Pica swallow a cap from [place]- nase. Pt INAD negative stridor, pt C O sore throat; Reason: Foreign Body; Clinical Question(s): Foreign Body; Abd Free Air COMPARISON: 01/26/2020 FINDINGS: LINES AND TUBES: None. LUNGS AND PLEURA: Clear lungs. Normal pulmonary vascularity. No pleural effusion. No pneumothorax. HEART, MEDIASTINUM AND ROSA MARIA: Heart is normal in size. Normal mediastinal and hilar contour. BONES AND SOFT TISSUES: No acute abnormality. IMPRESSION: No acute abnormality. WSN: [id number] Ordering Physician: Dyaln Redding Dictated By: Juan Denney MD Dictated Date/Time: 02/06/22 10:39 p Reviewed By: Juan Denney MD Signed By: Juan Denney MD Signed Date/Time: 02/06/22 10:39 pm Transcribed By: ROS Transcribed Date/Time: 02/06/22 10:39 pm Vital Signs Most recent to oldest [Reference Range]: 1 2 3 Height 154 cm (02/08/22 8:08 AM) 154 cm (02/07/22 11:20 PM) 154 cm (02/07/22 7:20 PM) Weight 106.60 kg (02/07/22 6:29 PM) 106.60 kg (02/07/22 5:59 PM) 104 kg (02/07/22 2:58 PM) Oxygen Saturation [94-100 %] 95 % (02/08/22 8:08 AM) 95 % (02/07/22 11:20 PM) 95 % (02/07/22 7:20 PM) Pulse Rate [55-90 bpm] 105 bpm *H* (02/08/22 8:08 AM) 92 bpm *H* (02/07/22 11:20 PM) 103 bpm *H* (02/07/22 7:20 PM) Body Mass Index [18.5-24.99 kg/m2] 44.95 kg/m2 *>HHI* (02/07/22 6:29 PM) 43.85 kg/m2 *>HHI* (02/07/22 2:58 PM) 43.85 kg/m2 *>HHI* (02/06/22 11:36 PM) Blood Pressure [90-138/55-84 mm Hg] 130/70mm Hg (02/08/22 8:08 AM) 104/56mm Hg (02/07/22 11:20 PM) 124/58mm Hg (02/07/22 7:20 PM) Respiratory Rate [16-30 br/min] 19 br/min (02/08/22 8:08 AM) 18 br/min (02/07/22 11:20 PM) 18 br/min (02/07/22 7:20 PM) Temperature [96.8-100.4 DegF] 97.1 DegF (02/08/22 8:08 AM) 97 DegF (02/07/22 11:20 PM) 98.4 DegF (02/07/22 7:20 PM) Liters per Minute 2 L/min (02/07/22 6:29 PM) 2 L/min (02/07/22 5:59 PM) 4 L/min (02/07/22 4:54 PM) Mode of Delivery (Oxygen) Room air (02/08/22 8:08 AM) Room air (02/07/22 11:20 PM) Room air (02/07/22 7:20 PM) Blood pressure sites Arm, right (02/08/22 8:08 AM) Arm, right (02/07/22 11:20 PM) Arm, right (02/07/22 7:20 PM) Temperature Route Axillary (02/08/22 8:08 AM) Oral (02/07/22 11:20 PM) Oral (02/07/22 7:20 PM) Dry Weight 106.60 kg (02/07/22 6:29 PM) 104 kg (02/06/22 11:36 PM) 104 kg (02/06/22 9:06 PM) Weight Obtained Via Standing scale (02/07/22 6:29 PM) Standing scale (02/07/22 5:59 PM) Social History Social History Type Response Smoking Status Never (less than 100 in lifetime) entered on: 09/17/20 Sex Endoscopy study * Event Display: GG EGD Please click on pdf link to open report Admission evaluation note * Andrew KAPLAN, Shirley H: PERFORM Event Display: Admission Note Authored Date: [id number] Patient: ??ADILENE MATHEWS ? Age:??26 Years?Sex:??Female?:??1995?? Chief Complaint/Reason for Consultation Swallowed cap of saline nasal spray pt A/W clr History of Present Illness ?? 26-year-old female who lives at a nursing home with a past medical history of autism/Prader-Willi syndrome.?? She has a history of foreign body ingestion multiple times and has had frequent emergency department visits with this complaint.?? Most recently on 01/25 when she had swallowed a dakotah, ENT had evaluated her and it had migrated down to the stomach.?? Was discharged without intervention. ?? Presented to the hospital 02/06 after swallowing a Flonase cap ??Around 9 PM.?? Foreign body sensation in throat.?? On admission was??drooling and spitting with some difficulty managing secretions but no respiratory distress.?Was also found to be mildly hypoxemic requiring 3-4 L oxygen supplementation likely due to some aspiration of secretions. ?? Evaluated by ENT: Foreign body had passed on their scope exam, likely in stomach.?? They recommended GI consult. ?? Work-up in the ED: -CT neck: 3.2 cm foreign body in hypopharynx -X-ray chest and neck did not show the object because it is not radiopaque -No lab work abnormalities -Hemodynamically stable but saturating around 94% on 3 L -Strict n.p.o. for now, no urgent medications that need to be continued ?? -Checked procalcitonin, 0.06 argues against any active bacterial infection. -Patient likely has some pneumonitis due to salivary aspiration, no indication for antibiotic initiation ?? -Started on maintenance fluids while strict n.p.o., GI team consulted, awaiting recommendations ? Review of Systems Review of systems negative other than that mentioned above Objective Vital Signs?? Temperature: 98.2 DegF (02/07/22 01:35:00) Temperature Route: Axillary (02/07/22 01:35:00) Pulse Rate: 76 bpm (02/07/22 06:40:00) Respiratory Rate: 16 br/min (02/07/22 06:40:00) Systolic Blood Pressure: 115 mm Hg (02/07/22 06:40:00) Diastolic Blood Pressure: 63 mm Hg (02/07/22 06:40:00) Blood pressure sites: Arm, right (02/07/22 06:40:00) Mean Arterial Pressure: 93 mm Hg (02/06/22 23:36:00) Pulse Pressure: 52 mm Hg (02/07/22 06:40:00) Oxygen Saturation:??92 %??Low (02/07/22 06:40:00) Liters per Minute: 3 L/min (02/07/22 06:40:00) Mode of Delivery (Oxygen): Nasal cannula (02/07/22 06:40:00) Early Warning Score: 2 (02/07/22 08:45:34) ? Intake/Output? No Data Available ? Physical Exam Constitutional: Alert, in no acute distress. Mental Status: Oriented to person, place and time. Head: Normocephalic. Eyes: Pupils are equal, round and reactive to light. Extraocular muscles intact. Ear, Nose and Throat: Oropharynx clear, mucous membranes moist. Ears and nose without masses, lesions or deformities. Trachea midline. Neck: Supple, Full range of motion. Respiratory: R sided mild rhonchi, improves with cough Cardiovascular: S1 S2 regular. No murmurs, rubs or gallops. Gastrointestinal: Abdomen soft, non-tender, non-distended. Normal bowel sounds. No pulsatile mass. No hepatosplenomegaly. Genitourinary: No costovertebral angle tenderness. Neurologic: Cranial nerves II-XII grossly intact. No focal neurological deficits. Flexor plantar response. Moves all extremities spontaneously. Sensation intact bilaterally. Skin: No rashes or lesions. No petechiae or purpura. Musculoskeletal: No cyanosis or clubbing. No gross deformities. Normal range of motion. ?? Assessment/Plan Diagnoses Foreign body in throat ??(T17.208A) ? 26-year-old female who lives at a nursing home with a past medical history of autism/Prader-Willi syndrome??and pica with frequent foreign body ingestion.?? She has a history of foreign body ingestion multiple times and has had frequent emergency department visits with this complaint.?? Most recentlyon 01/25 when she had swallowed a dakotah, ENT had evaluated her and it had migrated down to the stomach.?? Was discharged without intervention. ?? Presented to the hospital 02/06 after swallowing a Flonase cap ??Around 9 PM.?? Foreign body sensation in throat.?? On admission was??drooling and spitting with some difficulty managing secretions but no respiratory distress.?Was also found to be mildly hypoxemic requiring 3-4 L oxygen supplementation likely due to some aspiration of secretions. ?? Evaluated by ENT: Foreign body had passed on their scope exam, likely in stomach.?? They recommended GI consult. ?? #Foreign body ingestion #Autism/Prader-Willi syndrome with??pica and frequent object swallowing #Concern for pneumonitis due to??mild aspiration??with mild hypoxia -CT neck: 3.2 cm foreign body in hypopharynx -X-ray chest and neck did not show the object because it is not radiopaque -No lab work abnormalities -Hemodynamically stable but saturating around 94% on 3 L, will continue to wean oxygen -Strict n.p.o. for now, no urgent medications that need to be continued ?? -Checked procalcitonin, 0.06 argues against any active bacterial infection. -Patient likely has some pneumonitis due to salivary aspiration, no indication for antibiotic initiation ?? -Started on maintenance fluids while strict n.p.o., GI team consulted, awaiting recommendations ? CODE STATUS: Full code DVT prophylaxis: Ambulating Diet: N.p.o. for now pending GI recommendations ?? long-term staff updated Histories Allergies Allergies ?(Active and Proposed Allergies Only) LMX 4 with Tegaderm? (Severity: Unknown severity, Onset: Unknown) Haldol? (Severity: Unknown severity, Onset: Unknown) ? Past Medical History/Problem List Active Problems??(11) Anxiety Autism spectrum Constipation Crohn disease Dermatitis Foreign body in hypopharynx Foreign body ingestion Pica Prader-Willi syndrome Prader-Willi syndrome Severe obesity ? Past Surgical History EGD - Esophagogastroduodenoscopy: 10/16/21 ? Social History Alcohol Details:??Use: Never. Substance Abuse Details:??Use: Never. Tobacco Details:??Use: Never (less than 100 in lifetime). ? Family History Noncontributory ? Medications Home Medications Acetaminophen (acetaminophen 325 mg oral tablet)?650?Milligram?2?tablet?By Mouth?Every 4 hours?as needed?pain/fever Aripiprazole (ARIPiprazole 5 mg oral tablet)?5?Milligram?1?tablet?By Mouth?Daily Atenolol (atenolol 25 mg oral tablet)?25?Milligram?1?tablet?By Mouth?Daily Calcium And Vitamin D Combination (calcium (as citrate)-vitamin D 200 mg-250 intl units oral tablet)?1?tab(s)?By Mouth?Daily in AM Cholecalciferol (cholecalciferol 2000 intl units oral capsule)?1?capsule?50?Microgram?By Mouth?Daily?for 30?Days Famotidine (famotidine 40 mg oral tablet)?1?tab(s)?40?Milligram?By Mouth?Daily Fluoxetine (FLUoxetine 20 mg oral capsule)?20?Milligram?By Mouth?Daily in AM?for 30?Days Fluticasone Nasal (fluticasone 50 mcg/inh nasal spray)?1?spray(s)?50?Microgram?Nares, Both?Daily at bedtime Folic Acid (folic acid 1 mg oral tablet)?1?Milligram?1?tablet?By Mouth?Daily HydrOXYzine (hydrOXYzine hydrochloride 25 mg oral tablet)?1?tab(s)?25?Milligram?By Mouth?Every 12 hours?as needed?Agitation/ sleep Mercaptopurine (mercaptopurine 50 mg oral tablet)?1?tab(s)?50?Milligram?By Mouth?Daily Naltrexone (naltrexone 50 mg oral tablet)?1?tab(s)?50?Milligram?By Mouth?Daily Mcgregor-3 Polyunsaturated Fatty Acids (Mcgregor-3 1000 mg oral capsule)?1?capsule?1,000?Milligram?By Mouth?3 times a [...] 8 Weeks?on Fridays ? Inpatient Medications Medications (7) Active SCHEDULED: (1) NaCl 0.9% Flush 3ml (NaCL 0.9% Flush) ??3 mL, IV Push, Every 8 hours CONTINUOUS: (1) Lactated Ringers (1000 mL) Cont IV 1,000 mL (LR 1,000 mL) ??1,000 mL, IV Infusion, 75 mL/hr PRN: (5) Acetaminophen 325 mg Tablet (Acetaminophen Tablet) ??650 mg, By Mouth, Every 4 hours Melatonin 3 mg Tablet (Melatonin Tablet) ??3 mg, By Mouth, Daily at bedtime NaCl 0.9% Flush 3ml (NaCL 0.9% Flush) ??3 mL, IV Push, Every 8 hours Senna 8.6 mg / Docusate 50 mg tablet (Docusate/Senna Tablet) ??1 tablet, By Mouth, 2 times a day Simethicone 80 mg Chewable Tablet (Simethicone Tablet) ??80 mg, Chew, 3 times a day ? Results Recent Labs BLOOD COUNT & DIFF WBC 6.6 k/mm3 ()?? 02/07/2022 08:22 RBC 4.51 m/mm3 ()?? 02/07/2022 08:22 Hgb 12.3 Gm/dL ()?? 02/07/2022 08:22 Hct 40.8 % ()?? 02/07/2022 08:22 MCV 90.5 femtoliters ()?? 02/07/2022 08:22 MCH 27.3 pg ()?? 02/07/2022 08:22 MCHC 30.1 g/dL (Low)?? 02/07/2022 08:22 Platelet Count 214 k/mm3 ()?? 02/07/2022 08:22 RDW-SD 46.2 femtoliters ()?? 02/07/2022 08:22 MPV 10.7 femtoliters ()?? 02/07/2022 08:22 Nucleated RBC (Automated) 0.0 #/100 WBC'S ()?? 02/07/2022 08:22 Abs. NRBC 0.0 k/mm3 ()?? 02/07/2022 08:22 Abs. Neut 4.9 k/mm3 ()?? 02/07/2022 01:05 Abs. Lymph 1.6 k/mm3 ()?? 02/07/2022 01:05 Abs. [place] 0.6 k/mm3 ()?? 02/07/2022 01:05 Abs. Eo 0.2 k/mm3 ()?? 02/07/2022 01:05 Abs. Baso 0.1 k/mm3 ()?? 02/07/2022 01:05 Neut % 66.5 % ()?? 02/07/2022 01:05 Lymph % 21.4 % ()?? 02/07/2022 01:05 [place] % 8.1 % ()?? 02/07/2022 01:05 Eos % 2.4 % ()?? 02/07/2022 01:05 Baso % 0.7 % ()?? 02/07/2022 01:05 Imm Gran 0.9 % ()?? 02/07/2022 01:05 Abs. Imm Gran 0.1 k/mm3 ()?? 02/07/2022 01:05 ?? CHEM GENERAL Sodium 136 mmol/L ()?? 02/07/2022 01:05 Potassium HEMOLYZED mmol/L ()?? 02/07/2022 01:05 Chloride 98 mmol/L ()?? 02/07/2022 01:05 Bicarbonate Level 26 mmol/L ()?? 02/07/2022 01:05 Anion Gap 12 ()?? 02/07/2022 01:05 Glucose Level 135 mg/dL (High)?? 02/07/2022 01:05 BUN 25 mg/dL (High)?? 02/07/2022 01:05 Creatinine-Blood 0.8 mg/dL ()?? 02/07/2022 01:05 Estimated GFR Creatinine 100 ML/MIN/1.73 M2 ()?? 02/07/2022 01:05 ?? MISC. CHEMISTRY Procalcitonin 0.04 ng/mL ()?? 02/07/2022 08:22 ?? VIROLOGY COVID-19 by RT-PCR NEGATIVE ()?? 02/06/2022 21:17 ? Abnormal Labs ?? BLOOD COUNT & DIFF ??Abs. Imm Gran ??0.1 k/mm3 () ??02/07/2022 01:05 ??Abs. NRBC ??0.0 k/mm3 () ??02/07/2022 08:22 ??Imm Gran ??0.9 % () ??02/07/2022 01:05 ??MCHC ??30.1 g/dL (Low) ??02/07/2022 08:22 ??Nucleated RBC (Automated) ??0.0 #/100 WBC'S () ??02/07/2022 08:22 ??RDW-SD ??46.2 femtoliters () ??02/07/2022 08:22 ? CHEM GENERAL ??BUN ??25 mg/dL (High) ??02/07/2022 01:05 ??Estimated GFR Creatinine ??100 ML/MIN/1.73 M2 () ??02/07/2022 01:05 ??Glucose Level ??135 mg/dL (High) ??02/07/2022 01:05 ??Potassium ??HEMOLYZED mmol/L () ??02/07/2022 01:05 ? MISC. CHEMISTRY ??Procalcitonin ??0.04 ng/mL () ??02/07/2022 08:22 ? VIROLOGY ??COVID-19 by RT-PCR ??NEGATIVE () ??02/06/2022 21:17 ? Note: Critical results are displayed in red. ? Microbiology ?? COVID-19 (Novel Coronavirus), Rapid PCR?? Completed?? Source: Nasal Body Site: Nose Collected Dt/Tm: 02/06/2022 21:10 Last Updated Dt/Tm: 02/06/2022 22:10 ? Hospital Progress note * Harry Valenzuela RN: PERFORM, SIGN, VERIFY Event Display: Progress Note Hospital Authored Date: [id number] Patient: ADILENE MATHEWS Age: 26 years Sex: Female : 1995 Associated Diagnoses: None Author: Harry Valenzuela RN Findings Evaluation Patient alert and oriented x3. Patient did not complain of pain. Patient tolerated regular food. Sitter in the room with patient. IV access removed before discharge, tip intact. Discharge instructions given to patient and to the 2 adult nursing home personel. Patient left the unit ambulating independent with responsible adults, safety maintained during shift. . Discharge Information Case Management Discharge Plan : Case Management Discharge Plan Data 02/08/2022 10:45 EST Discharge Level of Care at Discharge Home/Nursing Home/Foster Care 02/08/2022 10:29 EST Discharge Level of Care at Discharge Home/Nursing Home/Foster Care * Jeffry ENGLISH, Padilla: PERFORM, SIGN, VERIFY Event Display: Progress Note Hospital Authored Date: [id number] Patient: ADILENE MATHEWS Age: 26 years Sex: Female : 1995 Associated Diagnoses: None Author: Padilla Teran RN Findings Problem Related to Alteration in Safety : Alteration in Safety/new 02/08/2022 0:00 EST Alteration in Safety Related to Other: Foreign body ingestion Goals & Outcomes, Safety Psychosocial support will be provided to Pt/S.O. as needed, Pt/caregiver will state understanding of plan/goals of care, Pt will remain safe & injury free, Pt/caregiver will be offered appropriate resources & support, Pt airway will be patent while recovering from ingestion Interventions, Safety Provide info on community resources for education, support, Provide teaching as needed BH Goals/Interventions, Safety Yes Safety, Problem Start 02/07/2022 18:54 Reviewed plan with, Safety Patient Patient Progression, Safety Pt progressing according to plan . Narrative/Incidental Pt alert and oriented x3. Denies any complaints or discomfort. LS clear, respirations even and unlabored, denies SOB, snores loudly when asleep. O2sat 95% on room air while awake, 87% while sleeping but refused to use oxygen. Provider notified. +BS x4, SNT tolerating apple juice and jello. No drooling or problem swallowing. Pt told constant plastic printer she swallowed a hair tie at start of shift. Provider made aware. +pp no edema BLE. Skin warm, dry and intact. Ambulated to the bathroom with steady gait, minimal assist. IVF infusing as ordered. Constant plastic printer at bedside. Pt currently sleeping, no distress, snoring, respirations even and unlabored. Needs attended, callbell in reach, bed alarm on, hourly rounding done. Evaluation Plan effective. * Brit Gracia RN: PERFORM, SIGN, VERIFY Event Display: Progress Note Hospital Authored Date: Patient: ADILENE MATHEWS Age: 26 years Sex: Female : 1995 Associated Diagnoses: None Author: Brit Gracia RN Findings Problem Related to Alteration in Safety : Alteration in Safety/new 02/07/2022 18:53 EST Alteration in Safety Related to Other: Foreign body ingestion Goals & Outcomes, Safety Psychosocial support will be provided to Pt/S.O. as needed, Pt/caregiver will state understanding of plan/goals of care, Pt will remain safe & injury free, Pt/caregiver will be offered appropriate resources & support, Pt airway will be patent while recovering from ingestion Interventions, Safety Provide info on community resources for education, support, Provide teaching as needed BH Goals/Interventions, Safety Yes Safety, Problem Start 02/07/2022 18:54 Reviewed plan with, Safety Patient Patient Progression, Safety Plan Initiation . Nursing Data Vital Signs : VITAL SIGNS SECTION 02/07/2022 18:29 EST Temperature 97.6 DegF Temperature Route Oral Pulse Rate 100 bpm H Respiratory Rate 17 br/min Systolic Blood Pressure 149 mm Hg H Diastolic Blood Pressure 62 mm Hg Blood pressure sites Arm, right Mean Arterial Pressure 91 mm Hg Pulse Pressure 87 mm Hg Oxygen Saturation 95 % Liters per Minute 2 L/min Mode of Delivery (Oxygen) Nasal cannula . Evaluation Pt arrived to unit via stretcher and ambulated to bed. a&ox3, vss, afebrile. off O2. on room air; respirations are even and steady. denies SOB. she is tolerating clears. last bm date is unknown. constant plastic printer at bedside. Will maintain safety and monitor.... Note * Harry Valenzuela RN: PERFORM Event Display: Discharge/Transfer Note Hospital Authored Date: [id number] Nursing Discharge Note Entered On: 02/08/2022 10:46 EST Performed On: 02/08/2022 10:45 EST by Harry Valenzuela RN Nursing Discharge Note 2 Discharge Time : 02/08/2022 10:30 EST Discharge Level of Care at Discharge : Home/Nursing Home/Foster Care Patient Left Unit Via : Ambulatory Patient Accompanied Off Unit with : Responsible adult, Other: long-term personel DC Instructions Provided & Signed by Pt : Yes Patient Understands D/C Instructions : Yes Patient Instructions Discharge Signed : Yes Did Pt have Specialty Bed or Wound Vac : No Harry Valenzuela RN - 02/08/2022 10:45 EST * Brit Gracia RN: PERFORM Event Display: Discharge/Transfer Note Hospital Authored Date: [id number] Nursing Discharge Note Entered On: 02/08/2022 10:29 EST Performed On: 02/08/2022 10:29 EST by Brit Gracia RN Nursing Discharge Note 2 Discharge Time : 02/08/2022 10:29 EST Discharge Level of Care at Discharge : Home/Nursing Home/Foster Care Patient Left Unit Via : Ambulatory Patient Accompanied Off Unit with : Other: long-term staff DC Instructions Provided & Signed by Pt : Yes Patient Understands D/C Instructions : Yes Patient Instructions Discharge Signed : Yes Did Pt have Specialty Bed or Wound Vac : No Brit Gracia RN - 02/08/2022 10:29 EST * Andrew KAPLAN, Shirley Connelly: PERFORM Event Display: Discharge/Transfer Note Hospital Authored Date: Patient: ??ADILENE MATHEWS ? Age:??26 Years?Sex:??Female?:??1995?? Patient Information Discharge Location: Primary Care Physician: Galen Xie MD Admit Date/Time: 02/07/22 03:56 Discharge Disposition Discharge Disposition: Home with Home Health Discharge Diagnosis Autism spectrum Foreign body ingestion Prader-Willi syndrome Severe obesity ?? _ Discharge Medications Acetaminophen (acetaminophen 325 mg oral tablet)?650?Milligram?2?tablet?By Mouth?Every 4 hours?as needed?pain/fever Aripiprazole (ARIPiprazole 5 mg oral tablet)?5?Milligram?1?tablet?By Mouth?Daily Atenolol (atenolol 25 mg oral tablet)?25?Milligram?1?tablet?By Mouth?Daily Calcium And Vitamin D Combination (calcium (as citrate)-vitamin D 200 mg-250 intl units oral tablet)?1?tab(s)?By Mouth?Daily in AM Cholecalciferol (cholecalciferol 2000 intl units oral capsule)?1?capsule?50?Microgram?By Mouth?Daily?for 30?Days Famotidine (famotidine 40 mg oral tablet)?1?tab(s)?40?Milligram?By Mouth?Daily Fluoxetine (FLUoxetine 20 mg oral capsule)?20?Milligram?By Mouth?Daily in AM?for 30?Days Fluticasone Nasal (fluticasone 50 mcg/inh nasal spray)?1?spray(s)?50?Microgram?Nares, Both?Daily at bedtime Folic Acid (folic acid 1 mg oral tablet)?1?Milligram?1?tablet?By Mouth?Daily HydrOXYzine (hydrOXYzine hydrochloride 25 mg oral tablet)?1?tab(s)?25?Milligram?By Mouth?Every 12 hours?as needed?Agitation/ sleep Mercaptopurine (mercaptopurine 50 mg oral tablet)?1?tab(s)?50?Milligram?By Mouth?Daily Naltrexone (naltrexone 50 mg oral tablet)?1?tab(s)?50?Milligram?By Mouth?Daily Mcgregor-3 Polyunsaturated Fatty Acids (Mcgregor-3 1000 mg oral capsule)?1?capsule?1,000?Milligram?By Mouth?3 times a [...] subcutaneous solution)?1?Milliliter?90?Milligram?Subcutaneous Injection?Every 8 Weeks?on Fridays ? Hospital Course ? 26-year-old female who lives at a nursing home with a past medical history of autism/Prader-Willi syndrome??and pica with frequent foreign body ingestion.?? She has a history of foreign body ingestion multiple times and has had frequent emergency department visits with this complaint.?? Most recentlyon 01/25 when she had swallowed a dakotah, ENT had evaluated her and it had migrated down to the stomach.?? Was discharged without intervention. ?? Presented to the hospital 02/06 after swallowing a Flonase cap ??Around 9 PM.?? Foreign body sensation in throat.?? On admission was??drooling and spitting with some difficulty managing secretions but no respiratory distress.?Was also found to be mildly hypoxemic requiring 3-4 L oxygen supplementation likely due to some aspiration of secretions. ?? Evaluated by ENT: Foreign body had passed on their scope exam, likely in stomach.?? They recommended GI consult.?? EGD nonrevealing, discharged back to nursing home. ?? #Foreign body ingestion #Autism/Prader-Willi syndrome with??pica and frequent object swallowing #Concern for pneumonitis due to??mild aspiration??with mild hypoxia -CT neck: 3.2 cm foreign body in hypopharynx -X-ray chest and neck did not show the object because it is not radiopaque -No lab work abnormalities -Hemodynamically stable but saturating around 94% on 3 L initially, weaned down to room air and remained??>95% on room air -Has some nocturnal desaturation likely obesity hypoventilation syndrome ?? -Checked procalcitonin, 0.06 argues against any active bacterial infection. -Patient likely has some pneumonitis due to salivary aspiration, no indication for antibiotic initiation, oxygen requirements resolved ?? -Evaluated by GI and underwent EGD 02/07: Did not visualize foreign body in stomach.?? No intervention needed from their end. ?? -Patient being discharged back to nursing home.?? There is a risk of object getting??lodged at??ileocecal valve, if patient has??new sudden abdominal symptoms or severe pain, needs return to the hospital Objective Measurements?? Height: 154 cm (02/08/22) Weight: 106.6 kg (02/07/22) Dry Weight: 106.6 kg (02/07/22) Body Mass Index:??44.95 kg/m2??Critical (02/07/22) ? Vital Signs?? Temperature: 97.1 DegF (02/08/22 08:08:00) Temperature Route: Axillary (02/08/22 08:08:00) Pulse Rate:??105 bpm??High (02/08/22 08:08:00) Heart Rate Monitored:??97 bpm??High (02/07/22 16:54:00) Respiratory Rate: 19 br/min (02/08/22 08:08:00) Systolic Blood Pressure: 130 mm Hg (02/08/22 08:08:00) Diastolic Blood Pressure: 70 mm Hg (02/08/22 08:08:00) Blood pressure sites: Arm, right (02/08/22 08:08:00) Mean Arterial Pressure: 90 mm Hg (02/08/22 08:08:00) Pulse Pressure: 60 mm Hg (02/08/22 08:08:00) Oxygen Saturation: 95 % (02/08/22 08:08:00) Liters per Minute: 2 L/min (02/07/22 18:29:00) Mode of Delivery (Oxygen): Room air (02/08/22 08:08:00) Early Warning Score: 5 (02/08/22 08:15:44) ? . Physical Exam ?? Constitutional: Alert, in no acute distress. Mental Status: Oriented to person, place and time. Head: Normocephalic. Eyes: Pupils are equal, round and reactive to light. Extraocular muscles intact. Ear, Nose and Throat: Oropharynx clear, mucous membranes moist. Ears and nose without masses, lesions or deformities. Trachea midline. Neck: Supple, Full range of motion. Respiratory:CTA Cardiovascular: S1 S2 regular. No murmurs, rubs or gallops. Gastrointestinal: Abdomen soft, non-tender, non-distended. Normal bowel sounds. No pulsatile mass. No hepatosplenomegaly. Genitourinary: No costovertebral angle tenderness. Neurologic: Cranial nerves II-XII grossly intact. No focal neurological deficits. Flexor plantar response. Moves all extremities spontaneously. Sensation intact bilaterally. Skin: No rashes or lesions. No petechiae or purpura. Musculoskeletal: No cyanosis or clubbing. No gross deformities. Normal range of motion. ?? Surgical Procedures Gastroscopy (EGD) Diagnostic 02/07/2022 16:21 Pending Results No Pending Results Follow-Up Appointments Added Follow Up ?Time Frame ?Comments Rojas KAPLAN, [facility] Patient Instructions DIAGNOSIS: You were seen in the emergency department for foreign bodies ingestion.?? CT scan showed??foreign body initially stuck in your neck which then moved down into your stomach Endoscopy did not show??foreign body in your stomach anymore, likely in your colon,??should pass inyour stool If you have any??new severe??abdominal pain??or sudden symptoms in the abdomen please return to thespital. ? Your specific PATIENT CARE INSTRUCTIONS (what to do / when to return): Please follow-up with your primary care doctor Please??stop??ingesting foreign bodies as it can lead to serious injury and ? MEDICATIONS (what medications you should start (or stop) taking): None ? There is a risk of object getting??lodged at??ileocecal valve, if patient has??new sudden abdominalsymptoms or severe pain, needs return to the hospital Post Discharge Care Diet: Regular Diet Code Status: ?? Full Resuscitation Condition: Stable Discharge ?02/08/22 9:39:00 EST Discharge Prescriptions ?ePrescribed, ??02/08/22 9:39:00 EST Home Health Face to Face ^HomeHealthFTF Results Discharge Labs BLOOD COUNT & DIFF WBC 6.6 k/mm3 ()?? 02/07/2022 08:22 RBC 4.51 m/mm3 ()?? 02/07/2022 08:22 Hgb 12.3 Gm/dL ()?? 02/07/2022 08:22 Hct 40.8 % ()?? 02/07/2022 08:22 MCV 90.5 femtoliters ()?? 02/07/2022 08:22 MCH 27.3 pg ()?? 02/07/2022 08:22 MCHC 30.1 g/dL (Low)?? 02/07/2022 08:22 Platelet Count 214 k/mm3 ()?? 02/07/2022 08:22 RDW-SD 46.2 femtoliters ()?? 02/07/2022 08:22 MPV 10.7 femtoliters ()?? 02/07/2022 08:22 Nucleated RBC (Automated) 0.0 #/100 WBC'S ()?? 02/07/2022 08:22 Abs. NRBC 0.0 k/mm3 ()?? 02/07/2022 08:22 Abs. Neut 4.9 k/mm3 ()?? 02/07/2022 01:05 Abs. Lymph 1.6 k/mm3 ()?? 02/07/2022 01:05 Abs. [place] 0.6 k/mm3 ()?? 02/07/2022 01:05 Abs. Eo 0.2 k/mm3 ()?? 02/07/2022 01:05 Abs. Baso 0.1 k/mm3 ()?? 02/07/2022 01:05 Neut % 66.5 % ()?? 02/07/2022 01:05 Lymph % 21.4 % ()?? 02/07/2022 01:05 [place] % 8.1 % ()?? 02/07/2022 01:05 Eos % 2.4 % ()?? 02/07/2022 01:05 Baso % 0.7 % ()?? 02/07/2022 01:05 Imm Gran 0.9 % ()?? 02/07/2022 01:05 Abs. Imm Gran 0.1 k/mm3 ()?? 02/07/2022 01:05 ?? CHEM GENERAL Sodium 136 mmol/L ()?? 02/07/2022 01:05 Potassium HEMOLYZED mmol/L ()?? 02/07/2022 01:05 Chloride 98 mmol/L ()?? 02/07/2022 01:05 Bicarbonate Level 26 mmol/L ()?? 02/07/2022 01:05 Anion Gap 12 ()?? 02/07/2022 01:05 Glucose Level 135 mg/dL (High)?? 02/07/2022 01:05 BUN 25 mg/dL (High)?? 02/07/2022 01:05 Creatinine-Blood 0.8 mg/dL ()?? 02/07/2022 01:05 Estimated GFR Creatinine 100 ML/MIN/1.73 M2 ()?? 02/07/2022 01:05 ? MISC. CHEMISTRY Procalcitonin 0.04 ng/mL ()?? 02/07/2022 08:22 ? VIROLOGY COVID-19 by RT-PCR NEGATIVE ()?? 02/06/2022 21:17 ? Microbiology ?? COVID-19 (Novel Coronavirus), Rapid PCR?? Completed?? Source: Nasal Body Site: Nose Collected Dt/Tm: 02/06/2022 21:10 Last Updated Dt/Tm: 02/06/2022 22:10 ? Imaging(s) ?CT Soft Tissue Neck W/O Contrast ?? 02/07/2022 00:03??by Jordana Amato MD ?3.2 cm cylinder shaped foreign body lodged in the hypopharynx, consistent with history of fluticasone cap swallowing. ? 33_ minutes spent on discharge * Basil ENGLISH, Brit: PERFORM Event Display: Patient Education/Instruction Authored Date: [id number] Inpatient Adult Discharge Instructions [place] [id number] Name: ADILENE MATHEWS : 1995 Visit: 02/07/2022 03:56:00 Current Date: 02/08/2022 10:04 Account: [id number] Inpatient Adult Discharge Instructions We would like [...] and their families. Surveys are administered by [employer]. ?? If further treatment with your primary care physician or another doctor is recommended, it is important for you to keep the appointment. Call your primary care physician or return to the Emergency Department immediately if your condition worsens, fails to improve, or new symptoms develop. If you need to find a doctor, you can call [facility] [employer] for a referral at [phone] or toll free at [phone] or log in to [email or web address] ?? You can view and manage your care through the patient portal or by using a health care lisa of your choosing. [employer] is a website that allows you to securely view your medical information including your hospital discharge summary, office visit summaries, medications and follow-up visits. You can also request appointments, renew medications, and request access to your medical information using a health care lisa of your choosing, or just ask a question. You can enroll at [email or web address] or register during your next office visit. You have been discharged from [facility], Patient Care Unit: W3. If you have any questions regarding these instructions after you leave, please call us and we will be happy to assist you. [facility] Your Care Team Attending Physician Shirley Morales MD Discharging Providers Shirley Morales MD Reason for Admission Swallowed cap of saline nasal spray pt A/W clr Your Diagnosis Foreign body in throat Tests Performed Below is a partial list of the tests performed during your hospitalization. You may have had other tests and procedures not included in this list. Please discuss all test results with your provider. BUN CBC CBC w/ Differential COVID-19 (Novel Coronavirus), Rapid PCR Creatinine Electrolytes Glucose Level Procalcitonin Level CT Soft Tissue Neck W/O Contrast KUB XR Chest 2 Views Frontal and Lat XR Chest Portable XR Neck Soft Tissue Primary Care Provider Galen Xie MD Advance Directive Health Care Proxy on File Yes - Health Care Proxy No qualifying data available. Discharge Vitals Temperature: 97.1 DegF Height: 154 cm Pulse Rate:??105 bpm??High Weight: 106.6 kg Respiratory Rate: 19 br/min Body Mass Index:??44.95 kg/m2??Critical Systolic Blood Pressure: 130 mm Hg Body surface area: 2.14 Diastolic Blood Pressure: 70 mm Hg ?? Oxygen Saturation: 95 % ?? Studies Pending All tests and labs ordered during this hospital stay have been completed unless listed below. Please discuss all pending results with your provider listed above in these instructions. ?? No incomplete studies found What to do next Instructions From Your Doctor DIAGNOSIS: You were seen in the emergency department for foreign bodies ingestion.?? CT scan showed??foreign body initially stuck in your neck which then moved down into your stomach Endoscopy did not show??foreign body in your stomach anymore, likely in your colon,??should pass inyour stool If you have any??new severe??abdominal pain??or sudden symptoms in the abdomen please return to thehospital. ? Your specific PATIENT CARE INSTRUCTIONS (what to do / when to return): Please follow-up with your primary care doctor Please??stop??ingesting foreign bodies as it can lead to serious injury and ? MEDICATIONS (what medications you should start (or stop) taking): None Discharge Orders Diet:??Regular Diet Code Status:?? Full Resuscitation Condition:??Stable You Need to Schedule the Following Appointments Follow Up with??Galen Xie MD When?? Where: [address] [place] [address]- Discharge Medications ADILENE MATHEWS :1995 Visit Date:02/07/2022 Medications: Please continue your medications until treatment is completed or stopped by your provider. Medications not listed below should be discontinued. Discuss any questions related to medications with your provider. What How Much When Instructions Next Dose Unchanged Acetaminophen (acetaminophen 325 mg oral tablet) 2 tab(s) Oral Every 4 hours as needed for pain/fever none taken. resume home regimen Unchanged Aripiprazole (ARIPiprazole 5 mg oral tablet) 1 tab(s) Oral Daily today 02/08 Unchanged Atenolol (atenolol 25 mg oral tablet) 1 tab(s) Oral Daily today 02/08 Unchanged Calcium And Vitamin D Combination (calcium (as citrate)-vitamin D 200 mg-250 intl units oral tablet) 1 tab(s) Oral Daily in the morning today 02/08 Unchanged Cholecalciferol (cholecalciferol 2000 intl units oral capsule) 1 capsule Oral Daily Duration: 30 Days today 02/08 Unchanged Famotidine (famotidine 40 mg oral tablet) 1 tab(s) Oral Daily today 02/08 Unchanged Fluoxetine (FLUoxetine 20 mg oral capsule) 20 Milligram Oral Daily in the morning Duration: 30 Days today 02/08 Unchanged Fluticasone Nasal (fluticasone 50 mcg/ inh nasal spray) 1 spray(s) Nares, Both Daily at Bedtime tonight at bedtime Unchanged Folic Acid (folic acid 1 mg oral tablet) 1 tab(s) Oral Daily today 02/08 Unchanged HydrOXYzine (hydrOXYzine hydrochloride 25 mg oral tablet) 1 tab(s) Oral Every 12 hours as needed for Agitation/ sleep resume home regimen Unchanged Mercaptopurine (mercaptopurine 50 mg oral tablet) 1 tab(s) Oral Daily today 02/08 Unchanged Naltrexone (naltrexone 50 mg oral tablet) 1 tab(s) Oral Daily today 02/08 Unchanged Mcgregor-3 Polyunsaturated Fatty Acids (Mcgregor-3 1000 mg oral capsule) 1 capsule Oral 3 times a day Duration: 30 Days resume home regimen Unchanged Polyethylene Glycol 3350 (MiraLax oral powder for reconstitution) 17 gram Oral Daily as needed for as needed dissolve in water before taking ?? today 02/08 Unchanged Silver SulfADIAZINE Topical (silver sulfADIAZINE 1% topical cream) 1/4 ribbon Topically Daily at Bedtime FOR VAGINAL ITCHING ?? tonight at bedtime Unchanged Sodium Chloride Nasal (Saline Nasal Mist) 2 spays Nares, Both Every 12 hours as needed for as needed for dry nasal passages resume home regimen Unchanged Ustekinumab (Stelara PFS 90 mg/ mL subcutaneous solution) 1 Milliliter Subcutaneous Injection Every 8 Weeks on Fridays ?? resume home regimen Test Results Below is a partial list of the most recent Laboratory test results done prior to this discharge. You may have had other tests and procedures not included in this list. Please discuss all test resultswith your provider. BUN (02/07/2022) ???BUN - 25 mg/dL CBC (02/07/2022) ???WBC - 6.6 k/mm3???RBC - 4.51 m/mm3???Hgb - 12.3 Gm/dL???Hct - 40.8 %???MCV - 90.5 femtoliters???MCH - 27.3 pg???MCHC - 30.1 g/dL???Platelet Count - 214 k/mm3???RDW-SD - 46.2 femtoliters???MPV - 10.7 femtoliters???Nucleated RBC (Automated) - 0.0 #/100 WBC'S???Abs. NRBC - 0.0 k/mm3 CBC w/ Differential (02/07/2022) ???WBC - 7.4 k/mm3???RBC - 4.71 m/mm3???Hgb - 13.2 Gm/dL???Hct - 42.4 %???MCV - 90.0 femtoliters???MCH - 28.0 pg???MCHC - 31.1 g/dL???Platelet Count - 232 k/mm3???RDW-SD - 45.4 femtoliters???MPV - 11.2 femtoliters???Nucleated RBC (Automated) - 0.0 #/100 WBC'S???Abs. NRBC - 0.0 k/mm3???Abs. Neut - 4.9 k/mm3???Abs. Lymph - 1.6 k/mm3???Abs. [place] - 0.6 k/mm3???Abs. Eo - 0.2 k/mm3???Abs. Baso - 0.1 k/mm3???Neut % - 66.5 %???Lymph % - 21.4 %???[place] % - 8.1 %???Eos % - 2.4 %???Baso % - 0.7 %???Imm Gran - 0.9 %???Abs. Imm Gran - 0.1 k/mm3 COVID-19 (Novel Coronavirus), Rapid PCR (02/06/2022) ???COVID-19 by RT-PCR - NEGATIVE Creatinine (02/07/2022) ???Creatinine-Blood - 0.8 mg/dL???Estimated GFR Creatinine - 100 ML/MIN/1.73 M2 Electrolytes (02/07/2022) ???Sodium - 136 mmol/L???Potassium - HEMOLYZED???Chloride - 98 mmol/L???Bicarbonate Level - 26 mmol/L???Anion Gap - 12 Glucose Level (02/07/2022) ???Glucose Level - 135 mg/dL Procalcitonin Level (02/07/2022) ???Procalcitonin - 0.04 ng/mL Allergies (NKA means No Known Allergies) Haldol LMX 4 with Tegaderm Problems Active Problems??(11) Anxiety?? Autism spectrum?? Constipation?? Crohn disease?? Dermatitis?? Foreign body in hypopharynx?? Foreign body ingestion?? Pica?? Prader-Willi syndrome?? Prader-Willi syndrome?? Severe obesity?? Education Materials Below is the list of Educational Leaflet Providered with your Discharge Instructions. Valuables and Belongings I fully understand and agree that [facility] accepts no responsibility for all my [...] Review of Valuable and Belonging List: With witness Date for Pt to Sign Valuables/Belongings: 02/07/22 18:09:00 ?? Other Discharge Information ? Pulmonary Rehab Status?? Pulmonary Rehab Discharge Status?? Respiratory Rate: 19 br/min ? Common Emergency Awareness Tips IS [...] are strongly encouraged to quit. Please call [facility] [employer] Link at [phone] or [phone] ([phone]) or log in to [email or web address] for referrals to smoking cessation programs. ?? The National Suicide Prevention Hotline is available 19/10 if you or someone you know needs to find a reason to keep living. By calling 9-165-509-[employer] (0259) you'll be connected to a skilled, trained counselor at a crisis center in your area. INPATIENT DISCHARGE INSTRUCTIONS SIGNATURE PAGE ADILENE MATHEWS Location:[facility] Registration Date and Time:02/07/2022 03:56 EST Primary Care Physician: Rojas KAPLAN, Asma, I ADILENE MATHEWS, have received the above patient education materials/instructions and have verbalized understanding. If ambulance or transport services are being used I further acknowledge being given a choice of service. ?? If you need to contact me, please call me at this number: . Patient/Directional Survey Drafter Name: Patient/Directional Survey Drafter Signature: Relationship to Patient: Witness Name/Signature: Date: * [facility]SPowerscribe , CIS S: TRANSCRIBE Juan Denney MD: VERIFY Event Display: Result: Authored Date: [id number] Chest 2 Views Frontal and Lat Hx of Present Illness: Pt from nursing home Hx of Pica swallow a cap from [facility]- nase. Pt INAD negative stridor, pt C O sore throat; Reason: Foreign Body; Clinical Question(s): Foreign Body; Abd Free Air COMPARISON: 01/26/2020 FINDINGS: LINES AND TUBES: None. LUNGS AND PLEURA: Clear lungs. Normal pulmonary vascularity. No pleural effusion. No pneumothorax. HEART, MEDIASTINUM AND ROSA MARIA: Heart is normal in size. Normal mediastinal and hilar contour. BONES AND SOFT TISSUES: No acute abnormality. IMPRESSION: No acute abnormality. WSN: [id number] Ordering Physician: Dylan Redding Dictated By: Juan Denney MD Dictated Date/Time: 02/06/22 10:39 p Reviewed By: Juan Denney MD Signed By: Juan Denney MD Signed Date/Time: 02/06/22 10:39 pm Transcribed By: ROS Transcribed Date/Time: 02/06/22 10:39 pm * BHSPowerscribe , CIS S: TRANSCRIBE Juan Denney MD: VERIFY Event Display: Result: Authored Date: [id number] Neck Soft Tissue Hx of Present Illness: Pt from nursing home Hx of Pica swallow a cap from [facility]- [facility]. Pt INAD negative stridor, pt C O sore throat; Reason: Foreign Body; Clinical Question(s): Foreign Body Location COMPARISON: None FINDINGS: Patent nasopharynx. No abnormal adenoidal enlargement. Normal retropharyngeal and retrotracheal soft tissues. Normal airway. Normal bones. IMPRESSION: No radiopaque foreign body identified. WSN: [id number] Ordering Physician: Dylan Redding Dictated By: Juan Denney MD Dictated Date/Time: 02/06/22 10:40 p Reviewed By: Juan Denney MD Signed By: Juan Denney MD Signed Date/Time: 02/06/22 10:40 pm Transcribed By: ROS Transcribed Date/Time: 02/06/22 10:[address] Neck WO contrast * BHSPowerscribe , CIS S: TRANSCRIBE Lima KAPLAN, Jordana Villalba: VERIFY Patrick KAPLAN, Turner Grigsby: SIGN Event Display: Result: Authored Date: [id number] CT Soft Tissue Neck W/O Contrast HISTORY: Foreign body. TECHNIQUE: Helical CT neck without contrast formatted in 3 planes. Weight-based protocol using automatic tube modulation was used to optimize exposure parameters. CTDIvol Body: 16.20 mGy, DLP Body: 468 mGy*cm. COMPARISON: 10/08/2021. FINDINGS: [employer] View Findings, Lines and Tubes: None. Lower intracranial contents: No abnormalities are seen involving the portions of brain and extra-axial spaces included on the exam. Cervical Lymph Nodes: Normal in size. Paranasal Sinuses: Mild thickening right maxillary sinus. Left inferior turbinectomy. Mucosal Surfaces: 3.2 cm cylinder shaped foreign body lodged in the hypopharynx, at the level of the epiglottis. Vocal Cords: Normal. Salivary Glands: Normal. Vascular Structures: Grossly unremarkable. Thyroid Gland: Normal CT appearance. Upper mediastinum and lung apices: Normal. Bones: No focal abnormalities IMPRESSION: 3.2 cm cylinder shaped foreign body lodged in the hypopharynx, consistent with history of fluticasone cap swallowing. I have personally reviewed the images and I agree with this report. WSN: [id number] Ordering Physician: Dylan Redding Dictated By: Turner Nguyen MD Dictated Date/Time: 02/07/22 5:54 am Reviewed By: Jordana Amato MD Signed By: Jordana Amato MD Signed Date/Time: 02/07/22 5:59 am Transcribed By: ROS Transcribed Date/Time: 02/07/22 0:23 am Portable XR Chest Views * BHSPowerscribe , CIS S: TRANSCRIBE Carol Ann Bustos MD: VERIFY Event Display: Result: Authored Date: Chest Portable Hx of Present Illness: Pt from nursing home Hx of Pica swallow a cap from [place]- [facility]. Pt INAD negative stridor, pt C O sore throat; Reason: Shortness of Breath; Clinical Question(s): Pneumonia COMPARISON: 02/06/2022. FINDINGS: LINES AND TUBES: None. LUNGS AND PLEURA: Hyperexpanded lungs without evidence of focal airspace disease. No pleural effusion. No pneumothorax. HEART, MEDIASTINUM AND ROSA MARIA: Prominent cardiomediastinal silhouette. BONES AND SOFT TISSUES: No acute abnormality. IMPRESSION: Prominent cardiomediastinal silhouette. WSN: [id number] Ordering Physician: Rosie Méndez Dictated By: Carol Ann Bustos MD Dictated Date/Time: 02/07/22 8:15 am Reviewed By: Carol Ann Bustos MD Signed By: Carol Ann Bustos MD Signed Date/Time: 02/07/22 8:15 am Transcribed By: ROS Transcribed Date/Time: 02/07/22 4:44 am XR Abdomen AP * BHSPowerscjulianobe , CIS S: TRANSCRIBE Carol Ann Bustos MD: VERIFY Event Display: Result: Authored Date: [id number] XR Abdomen AP 1 view INDICATION/CLINICAL QUESTION: Reason: Foreign Body; Clinical Question(s): Foreign Body COMPARISON: 11/24/2021. FINDINGS: There is no evidence of a radiopaque foreign body. There is a nonobstructed bowel gas pattern. No acute bone findings. IMPRESSION: There is no evidence of a radiopaque foreign body. WSN: [id number] Ordering Physician: Shirley Morales Dictated By: Carol Ann Bustos MD Dictated Date/Time: 02/07/22 9:23 am Reviewed By: Carol Ann Bustos MD Signed By: Carol Ann Bustos MD Signed Date/Time: 02/07/22 9:23 am Transcribed By: ROS Transcribed Date/Time: 02/07/22 9:21 am Patient Care team information Care Team Personnel Name: John Frederick RN Position: [facility] RN Member Role: Primary Care Nurse Name: Anthony Viveros RN Position: [facility] RN Member Role: Primary Care Nurse Name: Galen Xie MD Position: [facility] Physician (General Medicine) Member Role: PCP Address: Address: [facility] [address] Name: Bessie Gomes RN Position: [facility] RN Member Role: Primary Care Nurse Name: Ashlie Goodman RN Position: [facility] RN Member Role: Primary Care Nurse Name: Man Lucero RN Position: [facility] RN Member Role: Primary Care Nurse Name: Danielle Girffith RN Position: [facility] RN Member Role: Primary Care Nurse Name: Aneta Conte RN Position: [facility] RN Member Role: Primary Care Nurse Name: Carmelina Dunn LPN Position: [facility] RN Member Role: Primary Care Nurse Name: Janay Judd RN Position: S RN Member Role: Primary Care Nurse Name: Brit Gracia RN Position: [facility] RN Member Role: Primary Care Nurse Name: Karma Miller Position: [facility] RN Member Role: Primary Care Nurse Name: Latricia ROSE Attending Position: [facility] ED Medicine Name: Adam Juarez Position: [facility] ED [facility] Name: Vianney Mahan Position: [facility] Member Role: Gang Miner Name: Bee Aguirre RN Position: [facility] ED RN W/OE and Tasks Member Role: Patient Care Provider Name: Wilfrid Cloud Position: [facility] ED RN W/OE and Tasks Member Role: Patient Care Provider Name: Rosie Velásquez Position: [facility] Associate Professional Member Role: ED Physician Intertype Operator Address: Address: [address] [place] [address] [place] [address]- Care Team Related Persons Name: ELIZABETH REES Address: home [address] [place] [id number] Name: ROLAND WILLIAM Address: [address] [address]
--- OUTSIDE RECORDS SUMMARY | 2023-09-23 06:12 | XMS_ITS | Continuity of Care Document ---
Author Organization [facility] ter Address [address] [place] [address]- Care Team Providers Care Chief Of Surgery Name Role Phone Rojas KAPLAN, Asma Primary Care Physician [phone] Encounter [facility] Date(s): 08/13/22 - 08/13/[address] [address]- Discharge Disposition: A-D/C Home Attending Physician: Priscilla Castillo MD, Leyla Admitting Physician: Priscilla Castillo MD, Leyla Referring Physician: Not on Staff, Referring MD [...] EDT, Route to Pharmacy Electronically, [facility]-[id number], Partial fill upon patient request if the prescription is for a schedule... Start Date: 10/21/21 Status: Ordered atenolol 25 mg oral tablet 25 mg, 1, tablet, By Mouth, Daily, # 30 tablet, Refills 0, Tot. Refills 0, Maintenance, 10/21/21 15:28:00 EDT, Route to Pharmacy Electronically, [facility]-14474, Partial fill upon patient request if the [...] 0 Refills, Maintenance, 10/21/21 15:24:00 EDT, Tablet, [facility]-16337, Partial fill upon patient request if the prescription is for aschedule II opioid drug., 1 tablet By Mouth Daily i... Start Date: 10/21/21 Status: Ordered cholecalciferol 2000 intl units oral capsule 1 capsule = 50 mcg, By Mouth, Daily, # 30 capsule, 0 Refills, Maintenance, 10/21/21 15:27:00 EDT, Capsule, [facility]-37088, Partial fill upon patient request if the [...] EDT, Route to Pharmacy Electronically, [facility]-31203, Partial fill upon patient request if the prescription is for a schedule II... Start Date: 10/21/21 Stop Date: 11/20/21 Status: Ordered fluticasone 50 mcg/inh nasal spray 1 sprays = 50 mcg, Nares, Both, Daily at bedtime, # 16 Gm, 0 Refills, Maintenance, 10/21/21 15:30:00 EDT, Nasal [place], [facility]- [address], Partial fill upon patient request if the prescription is for a schedule II opioid drug., 1 spray... Start Date: 10/21/21 Status: Ordered folic acid 1 mg oral tablet 1 mg, 1, tablet, By Mouth, Daily, # 30 tablet, Refills 0, Tot. Refills 0, Maintenance, 10/21/21 15:30:00 EDT, Route to Pharmacy Electronically, [facility]-59914, Partial fill upon patient request if the [...] Maintenance, 10/21/21 15:30:00 EDT, Tablet, [facility]-94848, Partial fill upon patient request if the [...] Tablet, ; Start Date: 12/29/21 Status: Ordered [place]-3 1000 mg oral capsule 1 capsule = 1,000 mg, By Mouth, 3 times a day, # 90 capsule, 0 Refills, Maintenance, 10/21/21 15:27:00 EDT, Capsule, [facility]-03855, Partial fill upon patient request if the [...] Exam Date Time Procedure Performing Provider Status 08/13/22 7:56 AM Chest 2 Views Frontal and Lat Guillermo Clifton; Modified Notes: (Chest 2 Views Frontal and Lat) Reason For Exam: ate plastic off cpap mask;Foreign Body ADDENDUM: Chest 2 Views Frontal and Lat Impression should read NO evidence of radiopaque foreign body. This was discussed with Dr. Osorio WSN: [id number] Ordering Physician: Krysten Osorio Dictated By: Dawit Tenorio MD Dictated Date/Time: 08/13/22 8:24 am Reviewed By: Dawit Tenorio MD Signed By: Dawit Tenorio MD Signed Date/Time: 08/13/22 8:24 am Transcribed By: ROS Transcribed Date/Time: 08/13/22 8:24 am RESULT: Chest 2 Views Frontal and Lat Chest 2 Views Frontal and Lat Reason: Foreign Body; ate plastic off cpap mask; Clinical Question(s): Foreign Body COMPARISON: 07/23/2022 FINDINGS: Low lung volumes. No evidence of radiopaque foreign body IMPRESSION: Evidence of radiopaque foreign body WSN: [id number] Ordering Physician: Krysten Osorio Dictated By: Dawit Tenorio MD Dictated Date/Time: 08/13/22 7:59 am Reviewed By: Dawit Tenorio MD Signed By: Dawit Tenorio MD Signed Date/Time: 08/13/22 7:59 am Transcribed By: ROS Transcribed Date/Time: 08/13/22 7:58 am * Exam Date Time Procedure Performing Provider Status 08/13/22 7:56 AM Neck Soft Tissue Guillermo Clifton; Farida (Verified) Notes: (Neck Soft Tissue) Reason For Exam: ate the plastic off CPAP mask..;Other: RESULT: Neck Soft Tissue Neck Soft Tissue Reason: Other:; ate the plastic off CPAP mask..; Clinical Question(s): Foreign Body Location COMPARISON: 07/23/2022 FINDINGS: No evidence of radiopaque foreign body IMPRESSION: See above WSN: [id number] Ordering Physician: Krysten Osorio Dictated By: Dawit Tenorio MD Dictated Date/Time: 08/13/22 8:00 am Reviewed By: Dawit Tenorio MD Signed By: Dawit Tenorio MD Signed Date/Time: 08/13/22 8:00 am Transcribed By: ROS Transcribed Date/Time: 08/13/22 7:59 am * Exam Date Time Procedure Performing Provider Status 08/13/22 7:56 AM Abdomen AP Guillermo Clifton; Farida (Ve rified) Notes: (Abdomen AP) Reason For Exam: ate plastic off cpap;Foreign Body RESULT: XR Abdomen AP XR Abdomen AP 1 view INDICATION/CLINICAL QUESTION: Reason: Foreign Body; ate plastic off cpap; Clinical Question(s): Foreign Body; Special Instructions: Upright COMPARISON: 06/19/2022 FINDINGS: No radiopaque foreign body is appreciated within the abdomen or pelvis. No dilated small or large bowel IMPRESSION: No evidence of radiopaque foreign body WSN: [id number] Ordering Physician: Krysten Osorio Dictated By: Dawit Tenorio MD Dictated Date/Time: 08/13/22 7:57 am Reviewed By: Dawit Tenorio MD Signed By: Dawit Tenorio MD Signed Date/Time: 08/13/22 7:57 am Transcribed By: ROS Transcribed Date/Time: 08/13/22 7:57 am Vital Signs Most recent to oldest [Reference Range]: 1 2 3 Oxygen Saturation [94-100 %] 96 % (08/13/22 11:41 AM) 94 % (08/13/22 8:09 AM) 92 % *L* (08/13/22 7:37 AM) Pulse Rate [55-90 bpm] 61 bpm (08/13/22 11:41 AM) 66 bpm (08/13/22 7:37 AM) 70 bpm (08/13/22 6:48 AM) Blood Pressure [90-138/55-84 mm Hg] 122/70mm Hg (08/13/22 11:41 AM) 102/65mm Hg (08/13/22 9:42 AM) 140/83mm Hg *H* (08/13/22 6:48 AM) Respiratory Rate [16-30 br/min] 20 br/min (08/13/22 11:41 AM) 20 br/min (08/13/22 9:42 AM) 20 br/min (08/13/22 7:37 AM) Temperature [96.8-100.4 DegF] 97.5 DegF (08/13/22 11:41 AM) 98.2 DegF (08/13/22 6:48 AM) Mode of Delivery (Oxygen) Room air (08/13/22 11:41 AM) Room air (08/13/22 8:09 AM) Room air (08/13/22 7:37 AM) Temperature Route Oral (08/13/22 11:41 AM) Oral (08/13/22 6:48 AM) Social History Social History Type Response Smoking Status Never (less than 100 in lifetime) entered on: 09/17/20 Sex XR Abdomen AP * BHSPowerscribe , CIS S: TRANSCRIBE Dawit Tenorio MD: VERIFY Event Display: Result: Authored Date: [id number] XR Abdomen AP 1 view INDICATION/CLINICAL QUESTION: Reason: Foreign Body; ate plastic off cpap; Clinical Question(s): Foreign Body; Special Instructions: Upright COMPARISON: 06/19/2022 FINDINGS: No radiopaque foreign body is appreciated within the abdomen or pelvis. No dilated small or large bowel IMPRESSION: No evidence of radiopaque foreign body WSN: [id number] Ordering Physician: Krysten Osorio Dictated By: Dawit Tenorio MD Dictated Date/Time: 08/13/22 7:57 am Reviewed By: Dawit Tenorio MD Signed By: Dawit Tenorio MD Signed Date/Time: 08/13/22 7:57 am Transcribed By: ROS Transcribed Date/Time: 08/13/22 7:57 am Laboratory * FREYA Ann S: DENGRIDawit Campbell MD: MODIFY Event Display: Addendum Authored Date: [id number] Impression should read NO evidence of radiopaque foreign body. This was discussed with Dr. Osorio WSN: [id number] Ordering Physician: Krysten Osorio Dictated By: Dawit Tenorio MD Dictated Date/Time: 08/13/22 8:24 am Reviewed By: Dawit Tenorio MD Signed By: Dawit Tenorio MD Signed Date/Time: 08/13/22 8:24 am Transcribed By: ROS Transcribed Date/Time: 08/13/22 8:24 am Note * FREYA Ann S: Dawit Land MD: VERIFY Event Display: Result: Authored Date: [id number] Chest 2 Views Frontal and Lat Reason: Foreign Body; ate plastic off cpap mask; Clinical Question(s): Foreign Body COMPARISON: 07/23/2022 FINDINGS: Low lung volumes. No evidence of radiopaque foreign body IMPRESSION: Evidence of radiopaque foreign body WSN: [id number] Ordering Physician: Krysten Osorio Dictated By: Dawit Tenorio MD Dictated Date/Time: 08/13/22 7:59 am Reviewed By: Dawit Tenorio MD Signed By: Dawit Tenorio MD Signed Date/Time: 08/13/22 7:59 am Transcribed By: ROS Transcribed Date/Time: 08/13/22 7:58 am Radiology * CARMENSPowerscribe , CIS S: TRANSCRIBE Dawit Tenorio MD: VERIFY Event Display: Result: Authored Date: [id number] Neck Soft Tissue Reason: Other:; ate the plastic off CPAP mask..; Clinical Question(s): Foreign Body Location COMPARISON: 07/23/2022 FINDINGS: No evidence of radiopaque foreign body IMPRESSION: See above WSN: [id number] Ordering Physician: Krysten Osorio Dictated By: Dawit Tenorio MD Dictated Date/Time: 08/13/22 8:00 am Reviewed By: Dawit Tenorio MD Signed By: Dawit Tenorio MD Signed Date/Time: 08/13/22 8:00 am Transcribed By: ROS Transcribed Date/Time: 08/13/22 7:59 am Patient Care team information Care Team Personnel Name: John Frederick RN Position: [facility] RN Member Role: Primary Care Nurse Name: Minoo Rascon RN Position: [facility] RN Member Role: Primary Care Nurse Name: Anthony Viveros RN Position: [facility] RN Member Role: Primary Care Nurse Name: Galen Xie MD Position: [facility] Physician (General Medicine) Member Role: PCP Address: Address: [address] [place], [place] [address] Name: Charla Galindo RN Position: [facility] RN Member Role: Primary Care Nurse Name: Julia Sumner Position: [facility] RN Member Role: Primary Care Nurse Name: Bessie Gomes RN Position: [facility] RN Member Role: Primary Care Nurse Name: Ashlie Goodman RN Position: [facility] RN Member Role: Primary Care Nurse Name: Danielle Griffith RN Position: [facility] RN Member Role: Primary Care Nurse Name: Aenta Conte RN Position: [facility] RN Member Role: Primary Care Nurse Name: Carmelina Dunn LPN Position: [facility] RN Member Role: Primary Care Nurse Name: Janay Judd RN Position: [facility] RN Member Role: Primary Care Nurse Name: Brit Gracia RN Position: [facility] RN Member Role: Primary Care Nurse Name: Karma Miller RN Position: [facility] RN Member Role: Primary Care Nurse Name: Leyla Mcduffie MD Position: [facility] ED Medicine MD Member Role: Admitting Physician Address: Address: [address] [place] [address]- Name: Krysten Osorio MD Position: [facility] Resident Member Role: ED Resident Address: Address: [address] [place] [id number] Name: Eliane Hunterney Position: [facility] ED RN W/OE and Tasks Member Role: Patient Care Provider Care Team Related Persons Name: ELIZABETH REES Address: home [address] [place] [address] Name: MELO KUMAR Address: home [address] [place] [address] Name: ROLAND WILLIAM Address: [place] [address]
--- OUTSIDE RECORDS SUMMARY | 2023-09-23 06:12 | XMS_ITS | Continuity of Care Document ---
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 Start Date: 10/21/21 Status: Ordered cholecalciferol 2000 intl units oral capsule 1 capsule = 50 mcg, By Mouth, Daily, # 30 capsule, 0 Refills, Maintenance, 10/21/21 15:27:00 EDT, Capsule, [facility]-47957, Partial fill upon patient request if the [...] 10/21/21 15:30:00 EDT, Route to Pharmacy Electronically, [facility]-85860, Partial fill upon patient request if the prescription is for a schedule II... Start Date: 10/21/21 Stop Date: 11/20/21 Status: Ordered fluticasone 50 mcg/inh nasal spray 1 sprays = 50 mcg, Nares, Both, Daily at bedtime, # 16 Gm, 0 Refills, Maintenance, 10/21/21 15:30:00 EDT, Nasal [place], [facility]- [address], Partial fill upon patient request if the prescription is for a schedule II opioid drug., 1 spray... Start Date: 10/21/21 Status: Ordered folic acid 1 mg oral tablet 1 mg, 1, tablet, By Mouth, Daily, # 30 tablet, Refills 0, Tot. Refills 0, Maintenance, 10/21/21 15:30:00 EDT, Route to Pharmacy Electronically, [facility]-99931, Partial fill upon patient request if the [...] 0 Refills, Maintenance, 10/21/21 15:30:00 EDT, Tablet, [facility]-23515, Partial fill upon patient request if the [...] Tablet, ; Start Date: 12/29/21 Status: Ordered [place]-3 1000 mg oral capsule 1 capsule = 1,000 mg, By Mouth, 3 times a day, # 90 capsule, 0 Refills, Maintenance, 10/21/21 15:27:00 EDT, Capsule, [facility]-98172, Partial fill upon patient request if the [...] List Condition Confirmation Course Effective Dates Status [facility] at Informant Anxiety Confirmed Active Autism spectrum Confirmed Active Constipation Confirmed Active Crohn disease Confirmed Active Foreign body in hypopharynx Confirmed Active Pica Confirmed Active Prader-Willi syndrome Confirmed Active Prader-Willi syndrome Confirmed Active Severe obesity Confirmed Active Results Radiology Reports * Exam Date Time Procedure Performing Provider Status 08/08/23 1:33 PM Abdomen AP Hilario Tidwell Notes: (Abdomen AP) Reason For Exam: swallowed rock;Other: ADDENDUM: XR Abdomen AP Addendum: No definite radio-opaque foreign body in the chest or abdomen. Density in the right upperquadrant, nonspecific, possibly related to calcification. If clinical concern persists, cross sectional imaging can be obtained to further characterize. WSN: [id number] Ordering Physician: Celina Jordan Dictated By: Ambar Santos MD Dictated Date/Time: 08/08/23 1:56 pm Reviewed By: Ambar Santos MD Signed By: Ambar Santos MD Signed Date/Time: 08/08/23 1:56 pm Transcribed By: ROS Transcribed Date/Time: 08/08/23 1:55 pm RESULT: XR Abdomen AP XR Abdomen AP 1 view INDICATION/CLINICAL QUESTION: Hx of Present Illness: pt from assisted after swallowing small pebble. pt has PICA and has urge to put everything in her mouth. intermediate workers did not se pt swallowing pebble.; Reason: Other:; swallowed rock; Clinical Question(s): Foreign Body; Special Instructions: Flat COMPARISON: 01/15/2023. FINDINGS: Moderate stool retention but otherwise normal bowel gas pattern. No evidence of obstruction. No acute bone findings. Clear lung bases. IMPRESSION: Moderate stool retention but otherwise normal. I have personally reviewed the images and I agree with this report. WSN: [id number] Ordering Physician: Celina Jordan Dictated By: Mikey[Radiology] Tangela KAPLAN Dictated Date/Time: 08/08/23 1:46 pm Reviewed By: Ambar Santos MD Signed By: Ambar Santos MD Signed Date/Time: 08/08/23 1:51 pm Transcribed By: ROS Transcribed Date/Time: 08/08/23 1:45 pm * Exam Date Time Procedure Performing Provider Status 08/08/23 1:33 PM Chest 2 Views Frontal and Lat Fernanda Tidwell; Auth (Verified) Notes: (Chest 2 Views Frontal and Lat) Reason For Exam: swallowed rock;Foreign Body RESULT: Chest 2 Views Frontal and Lat Chest 2 Views Frontal and Lat Hx of Present Illness: pt from assisted after swallowing small pebble. pt has PICA and has urge to put everything in her mouth. intermediate workers did not se pt swallowing pebble.; Reason: Foreign Body; swallowed rock; Clinical Question(s): Foreign Body COMPARISON: Multiple priors, the most recent 07/27/2023. FINDINGS: LINES AND TUBES: None. LUNGS AND PLEURA: No focal consolidation. Normal pulmonary vascularity. No pleural effusion. No pneumothorax. HEART, MEDIASTINUM AND ROSA MARIA: Heart is normal in size. Aorta is tortuous and partially calcified. BONES AND SOFT TISSUES: No acute abnormality. IMPRESSION: No acute abnormality. No definite radio-opaque foreign body in the chest or abdomen. Density in theright upper quadrant possibly related to calcification. If clinical concern persists, cross sectional imaging can be obtained to further characterize. I have personally reviewed the images and I agree with this report. WSN: [id number] Ordering Physician: Celina Jordan Dictated By: Mikey[Radiology] Tangela KAPLAN Dictated Date/Time: 08/08/23 1:55 pm Reviewed By: Ambar Santos MD Signed By: Ambar Santos MD Signed Date/Time: 08/08/23 2:00 pm Transcribed By: ROS Transcribed Date/Time: 08/08/23 1:51 pm Vital Signs Most recent to oldest [Reference Range]: 1 2 Height 153 cm (08/08/23 1:02 PM) Oxygen Saturation [94-100 %] 95 % (08/08/23 2:32 PM) 95 % (08/08/23 1:02 PM) Pulse Rate [55-90 bpm] 54 bpm *L* (08/08/23 2:32 PM) 56 bpm (08/08/23 1:02 PM) Blood Pressure [90-138/55-84 mm Hg] 139/ 87mm Hg *H* (08/08/23 2:32 PM) 113/71mm Hg (08/08/23 1:02 PM) Respiratory Rate [16-30 br/min] 16 br/mi n (08/08/23 2:32 PM) 18 br/min (08/08/23 1:02 PM) Temperature [96.8-100.4 DegF] 97.5 DegF (08/08/23 1:02 PM) Mode of Delivery (Oxygen) Room air (08/08/23 2:32 PM) Room air (08/08/23 1:02 PM) Blood pressure sites Arm, left (08/08/23 2:32 PM) Arm, right (08/08/23 1:02 PM) Temperature Route Axillary (08/08/23 1:02 PM) Dry Weight 105 kg (08/08/23 1:02 PM) Dry Weight Obtained Via Patient/family s tated (08/08/23 1:02 PM) Social History Social History Type Response [...] RN Member Role: Primary Care Nurse Name: Anthnoy Viveros RN Position: S RN Member Role: Primary Care Nurse Name: Galen Xie MD Position: [facility] Physician - Primary Care Member Role: PCP Address: Address: [address] [place], [place] [facility] Name: Charla Galindo RN Position: [facility] RN Member Role: Primary Care Nurse Name: Julia Sumner Position: S RN Member Role: Primary Care Nurse Name: Bessie Gomes RN Position: [facility] RN Member Role: Primary Care Nurse Name: Ashlie Goodman RN Position: [facility] RN Member Role: Primary Care Nurse Name: Danielle Griffith RN Position: [facility] RN Member Role: Primary Care Nurse Name: Aneta Conte RN Position: S RN Member Role: Primary Care Nurse Name: Carmelina Dunn LPN Position: S RN Member Role: Primary Care Nurse Name: Janay Judd RN Position: [facility] RN Member Role: Primary Care Nurse Name: Brit Gracia RN Position: [facility] RN Member Role: Primary Care Nurse Name: Karma Miller RN Position: [facility] RN Member Role: Primary Care Nurse Care Team Related Persons Name: ELIZABETH REES Address: home [address] [place] [address] Name: MELO KUMAR Address: home [address] [place] [address] Name: ROLAND WILLIAM Address: [address] [place] [address]
--- OUTSIDE RECORDS SUMMARY | 2023-09-23 06:12 | XMS_ITS | Continuity of Care Document ---
Author Organization [facility] Address [address] [place] [address]- Care Team Providers Care Plane Tableman Name Role Phone Rojas KAPLAN, Asma Primary Care Physician [phone] Encounter [facility] Date(s): 02/23/22 - 02/23/[address] [address]- Encounter Diagnosis Foreign body ingestion(Final) - 02/23/22 Pain in throat(Final) - 02/23/22 Foreign body sensation in throat(Final) - 02/23/22 Discharge Disposition: A-D/C Home Attending Physician: Mary Calderon MD Admitting Physician: Mary Calderon MD Referring Physician: Not on Staff, Referring [...] 10/21/21 15:28:00 EDT, [facility] Partial fill upon patient request if the prescription is for a schedule... Start Date: 10/21/21 Status: Ordered atenolol 25 mg oral tablet 25 mg, 1, tablet, By Mouth, Daily, # 30 tablet, Refills 0, Tot. Refills 0, Maintenance, 10/21/21 15:28:00 EDT, Route to Pharmacy Electronically, [facility]-[id number], Partial fill upon patient request if the prescription is for a schedul... Start Date: 10/21/21 Status: Ordered calcium (as citrate)-vitamin D 200 mg-250 intl units oral tablet 1 tablet, By Mouth, Daily in AM, # 30 tablet, 0 Refills, Maintenance, 10/21/21 15:24:00 EDT, Tablet, [facility]-[id number], Partial fill upon patient request if the prescription is for aschedule II opioid drug., 1 tablet By Mouth Daily i... Start Date: 10/21/21 Status: Ordered cholecalciferol 2000 intl units oral capsule 1 capsule = 50 mcg, By Mouth, Daily, # 30 capsule, 0 Refills, Maintenance, 10/21/21 15:27:00 EDT, Capsule, [facility]-90099, Partial fill upon patient request if the [...] Route to Pharmacy Electronically, [facility]-[id number], Partial fill upon patient request if the prescription is for a schedule II... Start Date: 10/21/21 Stop Date: 11/20/21 Status: Ordered fluticasone 50 mcg/inh nasal spray 1 sprays = 50 mcg, Nares, Both, Daily at bedtime, # 16 Gm, 0 Refills, Maintenance, 10/21/21 15:30:00 EDT, Nasal [place], [facility]- [address], Partial fill upon patient request if the prescription is for a schedule II opioid drug., 1 spray... Start Date: 10/21/21 Status: Ordered folic acid 1 mg oral tablet 1 mg, 1, tablet, By Mouth, Daily, # 30 tablet, Refills 0, Tot. Refills 0, Maintenance, 10/21/21 15:30:00 EDT, Route to [facility], [facility], Partial fill upon patient request if the [...] 10/21/21 15:30:00 EDT, Tablet, [facility]-34759, Partial fill upon patient request if the [...] Tablet, ; Start Date: 12/29/21 Status: Ordered Neligh-3 1000 mg oral capsule 1 capsule = 1,000 mg, By Mouth, 3 times a day, # 90 capsule, 0 Refills, Maintenance, 10/21/21 15:27:00 EDT, Capsule, [facility]-76675, Partial fill upon patient request if the [...] Procedure Date Related Diagnosis Body Site Status Esophagogastroduodenoscopy 02/23/22 Completed Vital Signs Most recent to oldest [Reference Range]: 1 2 3 Height 152.5 cm (02/23/22 3:00 PM) 152.5 cm (02/23/22 11:40 AM) Oxygen Saturation [94-100 %] 95 % (02/23/22 8:05 PM) 98 % (02/23/22 4:28 PM) 98 % (02/23/22 4:23 PM) Pulse Rate [55-90 bpm] 78 bpm (02/23/22 8:05 PM) 66 bpm (02/23/22 3:00 PM) 61 bpm (02/23/22 12:15 PM) Blood Pressure [90-138/55-84 mm Hg] 117/50mm Hg (02/23/22 8:05 PM) 109/55mm Hg (02/23/22 4:28 PM) 120/73mm Hg (02/23/22 4:23 PM) Respiratory Rate [16-30 br/min] 16 br/min (02/23/22 8:05 PM) 16 br/min (02/23/22 4:28 PM) 18 br/min (02/23/22 4:23 PM) Temperature [96.8-100.4 DegF] 96.5 DegF *L* (02/23/22 4:08 PM) 97.4 DegF (02/23/22 3:00 PM) 97.4 DegF (02/23/22 12:15 PM) Mode of Delivery (Oxygen) Room air (02/23/22 8:05 PM) Room air (02/23/22 4:28 PM) Room air (02/23/22 4:23 PM) Blood pressure sites Arm, right (02/23/22 4:28 PM) Arm, right (02/23/22 4:23 PM) Arm, right (02/23/22 4:18 PM) Temperature Route Temporal (02/23/22 4:08 PM) Temporal (02/23/22 3:00 PM) Oral (02/23/22 12:15 PM) Social History Social History Type Response Smoking Status Never (less than 100 in lifetime) entered on: 09/17/20 Sex Endoscopy study * Event Display: GG EGD Please click on pdf link to open report Note * Crystal Tyler DO: PERFORM Event Display: Patient Education Leaflets Authored Date: Swallowed Foreign Body (Adult) ?? [id number] Swallowed Foreign Body (Adult) Indigestible objects (foreign [...] return to have imaging tests done. This especially true if the object you swallowed is visible on X-ray and doesn't seem to be passing. Call your healthcare provider if you have any questions or concerns. ?? When to seek medical advice Call your healthcare provider right away if any of these occur: ??? Belly pain, cramps, or swelling??? Shortness of breath or coughing that won???t stop ??? Trouble swallowing or pain with swallowing ??? Vomiting that won???t stop ??? Blood in the stool (black color, like tar) ??? Fever of 100.4??F (38??C) or higher, or as directed by your provider ??? Inability to pass stool ?? Call 911 Call 911??if any of these occur: ??? Trouble breathing, wheezing ??? Trouble speaking ??? Unusuallyfast heart rate ??? New or worsening chest pain ??? Vomiting blood (red or black) or bleeding from your rectum (red) ??? Swelling of the neck ??? Weakness, dizziness, or faintness ?? Last Reviewed Date: 2019 ?? [id number] [employer]. All rights reserved. This information is not intended as a substitute for professional medical care. Always follow your healthcare professional's instructions. ?? Patient Care team information Care Team Personnel Name: John Frederick RN Position: [facility] RN Member Role: Primary Care Nurse Name: Anthony Viveros RN Position: S RN Member Role: Primary Care Nurse Name: Galen Xie MD Position: [facility] Physician (General Medicine) Member Role: PCP Address: Address: [address] [place], [place] [address] Name: Bessie Gomes RN Position: S RN Member Role: Primary Care Nurse Name: Ashlie Goodman RN Position: S RN Member Role: Primary Care Nurse Name: Man Lucero RN Position: S RN Member Role: Primary Care Nurse Name: Danielle Griffith RN Position: S RN Member Role: Primary Care Nurse Name: Aneta Conte RN Position: [facility] RN Member Role: Primary Care Nurse Name: Carmelina Dunn LPN Position: [facility] RN Member Role: Primary Care Nurse Name: Janay Judd RN Position: [facility] RN Member Role: Primary Care Nurse Name: Brit Gracia RN Position: [facility] RN Member Role: Primary Care Nurse Name: Karma Miller Position: [facility] RN Member Role: Primary Care Nurse [facility] Attending Position: [facility] ED Attendings Patient Name: Pamela Solares Position: [facility] ED RN W/OE and Tasks Member Role: Patient Care Provider Name: Mary Calderon MD Position: [facility] Resident Member Role: Admitting Physician Address: Address: [address] [place] [address] Emergency Medicine [place], [place] [address] Name: Nino Betancourt RN Position: [facility] ED RN W/OE and Tasks Member Role: Patient Care Provider Name: Hope Hilliard Position: [facility] ED TA [facility] Care Team Related Persons Name: ELIZABETH REES Address: home [address] [place] [id number] Name: ROLAND WILLIAM Address: home [address] [place] [address]
--- OUTSIDE RECORDS SUMMARY | 2023-09-23 06:12 | XMS_ITS | Continuity of Care Document ---
Author Organization [facility] ter Address [address] [place] [address]- Care Team Providers Care Processor Helper Name Role Phone Rojas KAPLAN, Asma Primary Care Physician [phone] [place] [facility] [place] 07/27/23 - 07/27/[address] [address]- Discharge Disposition: A-D/C Home Attending Physician: Etienne [...] 10/21/21 15:28:00 EDT, Route to Pharmacy Electronically, [facility] [place], Partial fill upon patient request if the [...] 0 Refills, Maintenance, 10/21/21 15:24:00 EDT, Tablet, [facility] [place]-[address], Partial fill upon patient request if the prescription is for aschedule II opioid drug., 1 tablet By Mouth Daily i... Start Date: 10/21/21 Status: Ordered cholecalciferol 2000 intl units oral capsule 1 capsule = 50 mcg, By Mouth, Daily, # 30 capsule, 0 Refills, Maintenance, 10/21/21 15:27:00 EDT, Capsule, [facility] [place]-[address], Partial fill upon patient request if the [...] 10/21/21 15:30:00 EDT, Route to Pharmacy Electronically, [facility] [place]-[address], Partial fill upon patient request if the prescription is for a schedule II... Start Date: 10/21/21 Stop Date: 11/20/21 Status: Ordered fluticasone 50 mcg/inh nasal spray 1 sprays = 50 mcg, Nares, Both, Daily at bedtime, # 16 Gm, 0 Refills, Maintenance, 10/21/21 15:30:00 EDT, Nasal [place], [facility] [place]- [address], Partial fill upon patient request if the prescription is for a schedule II opioid drug., 1 spray... Start Date: 10/21/21 Status: Ordered folic acid 1 mg oral tablet 1 mg, 1, tablet, By Mouth, Daily, # 30 tablet, Refills 0, Tot. Refills 0, Maintenance, 10/21/21 15:30:00 EDT, Route to Pharmacy Electronically, [facility] [place]-[address], Partial fill upon patient request if the [...] 0 Refills, Maintenance, 10/21/21 15:30:00 EDT, Tablet, [facility] [place]-[address], Partial fill upon patient request if the [...] Tablet, ; Start Date: 12/29/21 Status: Ordered Rutledge-3 1000 mg oral capsule 1 capsule = 1,000 mg, By Mouth, 3 times a day, # 90 capsule, 0 Refills, Maintenance, 10/21/21 15:27:00 EDT, Capsule, [facility] [place]-[address], Partial fill upon patient request if the [...] Exam Date Time Procedure Performing Provider Status 07/27/23 7:46 PM Chest 2 Views Frontal and Lat Reddy Cotton; Auth (Verified) Notes: (Chest 2 Views Frontal and Lat) Reason For Exam: Foreign Body RESULT: Chest 2 Views Frontal and Lat Chest 2 Views Frontal and Lat INDICATION: Patient swallowed an item in the laundry room 20 minutes prior to arrival. History of PICA. COMPARISON: 01/16/2023 FINDINGS: LINES AND TUBES: None. LUNGS AND PLEURA: Low lung volumes with mild basilar atelectasis. Lungs are otherwise clear with no consolidation. No pleural effusion. No pneumothorax, although the left apex partially obscured by patient's chin. HEART, MEDIASTINUM AND ROSA MARIA: Heart is normal in size. Normal mediastinal and hilar contour. BONES AND SOFT TISSUES: No acute abnormality. No radiopaque foreign body. IMPRESSION: No acute abnormality. No radiopaque foreign body. WSN: [id number] Ordering Physician: Sue Rowell Dictated By: Omer Vogel MD Dictated Date/Time: 07/27/23 7:43 pm Reviewed By: Omer Vogel MD Signed By: Omer Vogel MD Signed Date/Time: 07/27/23 7:43 pm Transcribed By: ROS Transcribed Date/Time: 07/27/23 7:41 pm Vital Signs Most recent to oldest [Reference Range]: 1 2 Height 153 cm (07/27/23 6:20 PM) Oxygen Saturation [94-100 %] 97 % (07/27/23 9:24 PM) 95 % (07/27/23 6:20 PM) Pulse Rate [55-90 bpm] 65 bpm (07/27/23 9:24 PM) 52 bpm *L* (07/27/23 6:20 PM) Blood Pressure [90-138/55-84 mm Hg] 139/ 91mm Hg *H* (07/27/23 9:24 PM) 115/94mm Hg (07/27/23 6:20 PM) Respiratory Rate [16-30 br/min] 18 br/mi n (07/27/23 9:24 PM) 20 br/min (07/27/23 6:20 PM) Temperature [96.8-100.4 DegF] 97.6 DegF (07/27/23 9:24 PM) Mode of Delivery (Oxygen) Room air (07/27/23 9:24 PM) Room air (07/27/23 6:20 PM) Blood pressure sites Arm, left (07/27/23 9:24 PM) Arm, left (07/27/23 6:20 PM) Temperature Route Oral (07/27/23 9:24 PM) Dry Weight 100.6 kg (07/27/23 6:20 PM) Dry Weight Obtained Via Standing scale (07/27/23 6:20 PM) Social History Social History Type Response Smoking Status Never (less than 100 in lifetime) entered on: 6/22/21 Sex Female Patient Care team information Care Team Personnel Name: Sarah Dumont RN Position: [facility] RN Member Role: Primary Care Nurse Name: John Frederick RN Position: [facility] RN Member Role: Primary Care Nurse Name: Minoo Rascon RN Position: [facility] RN Member Role: Primary Care Nurse Name: Anthony Viveros RN Position: [facility] RN Member Role: Primary Care Nurse Name: Galen Xie MD Position: [facility] Physician - Primary Care Member Role: PCP Address: Address: [address] [place], [place] - Name: Charla Galindo RN Position: [facility] RN Member Role: Primary Care Nurse Name: Julia Sumner Position: [facility] RN Member Role: Primary Care Nurse Name: Bessie Gomes RN Position: [facility] RN Member Role: Primary Care Nurse Name: Ashlie Goodman RN Position: [facility] RN Member Role: Primary Care Nurse Name: Danielle Griffith RN Position: [facility] RN Member Role: Primary Care Nurse Name: Aneta Conet RN Position: [facility] RN Member Role: Primary Care Nurse Name: Carmelina Dunn LPN Position: [facility] RN Member Role: Primary Care Nurse Name: Janay Judd RN Position: [facility] RN Member Role: Primary Care Nurse Name: Brit Gracia RN Position: [facility] RN Member Role: Primary Care Nurse Name: Karma Miller RN Position: [facility] RN Member Role: Primary Care Nurse Care Team Related Persons Name: ELIZABETH REES Address: home [address] [place] [address] Name: MELO KUMAR Address: home [address] [place], [place] Name: ROLAND WILLIAM Address: [address] [place] [address]
--- OUTSIDE RECORDS SUMMARY | 2023-09-23 06:12 | XMS_ITS | Continuity of Care Document ---
Author Organization [facility] ter Address [address] [place] [address]- Care Team Providers Care Linoleum Floor Layer Name Role Phone Rojas KAPLAN, Asma Primary Care Physician Encounter [facility] Date(s): 12/30/22 - 12/30/[address] [address]- Discharge Disposition: A-D/C Home Attending Physician: David KAPLAN, Casie Gotti Admitting Physician: Casie Hernandez MD Referring Physician: Not on Staff, Referring [...] Electronically, [facility] [place], Partial fill upon patient request if the [...] Tablet, [facility] [place]-[id number], Partial fill upon patient request if the prescription is for aschedule II opioid drug., 1 tablet By Mouth Daily i... Start Date: 10/21/21 Status: Ordered cholecalciferol 2000 intl units oral capsule 1 capsule = 50 mcg, By Mouth, Daily, # 30 capsule, 0 Refills, Maintenance, 10/21/21 15:27:00 EDT, Capsule, [facility] [place]-[address], Partial fill upon patient request if the [...] Electronically, [facility] [place]-[id number], Partial fill upon patient request if the prescription is for a schedule II... Start Date: 10/21/21 Stop Date: 11/20/21 Status: Ordered fluticasone 50 mcg/inh nasal spray 1 sprays = 50 mcg, Nares, Both, Daily at bedtime, # 16 Gm, 0 Refills, Maintenance, 10/21/21 15:30:00 EDT, Nasal [place], [facility], [place]- [address], Partial fill upon patient request if the prescription is for a schedule II opioid drug., 1 spray... Start Date: 10/21/21 Status: Ordered folic acid 1 mg oral tablet 1 mg, 1, tablet, By Mouth, Daily, # 30 tablet, Refills 0, Tot. Refills 0, Maintenance, 10/21/21 15:30:00 EDT, Route to Pharmacy Electronically, [facility], [place]-[address], Partial fill upon patient request if the [...] Tablet, [facility] [place]-[address], Partial fill upon patient request if the [...] Capsule, [facility], [place]-[address], Partial fill upon patient request if the [...] [Reference Range]: 1 Oxygen Saturation [94-100 %] 93 % *L* (12/30/22 9:11 AM) Pulse Rate [55-90 bpm] 78 bpm (12/30/22 9:11 AM) Blood Pressure [90-138/55-84 mm Hg] 165/ 59mm Hg *H* (12/30/22 9:11 AM) Respiratory Rate [16-30 br/min] 16 br/mi n (12/30/22 9:11 AM) Temperature [96.8-100.4 DegF] 98.2 DegF (12/30/22 9:11 AM) Mode of Delivery (Oxygen) Room air (12/30/22 9:11 AM) Temperature Route Oral (12/30/22 9:11 AM) Social History Social History Type Response Smoking Status Never (less than 100 in lifetime) entered on: 09/17/20 Sex Female Note * April Soler MD: PERFORM Event Display: Patient Education Leaflets Authored Date: [id number] Swallowed Foreign Body (Adult) ?? [id number] Swallowed Foreign Body (Adult) Indigestible objects (foreign [...] ?? Last Reviewed Date: 2022 ?? [employer]. All rights reserved. This information is not intended as a substitute for professional medical care. Always follow your healthcare professional's instructions. ?? Patient Care team information Care Team Personnel Name: John Frederick RN Position: [facility] RN Member Role: Primary Care Nurse Name: Minoo Rascon RN Position: [facility] RN Member Role: Primary Care Nurse Name: Anthony Viveros RN Position: [facility] RN Member Role: Primary Care Nurse Name: Galen Xie MD Position: [facility] Physician - Primary Care Member Role: PCP Address: Address: [address] [place], [place] [address] Name: Charla Galindo RN Position: [facility] RN Member Role: Primary Care Nurse Name: Julia Sumner Position: [facility] [...] RN Member Role: Primary Care Nurse Name: Casie Hernandez MD Position: [facility] ED Medicine MD Member Role: Admitting Physician Address: Address: [address] [facility] [place] [address]- [place] Name: Ivett Wesley RN Position: [facility] ED RN W/OE and Tasks Member Role: Patient Care Provider Name: Christie Byrnes Position: [facility] ED RN W/OE and Tasks Member Role: Patient Care Provider Name: Liana Rojo Position: [facility] ED TA [facility] Name: April Soler MD Position: [facility] Resident Member Role: Resident Address: Address: [address] [place] [address]- [place] Name: Rekha Santo Position: [facility] ED TA [facility] Member Role: International Project Engineer Care Team Related Persons Name: ELIZABETH REES Address: home [address] [place] [address] Name: MELO KUMAR Address: home [address] [place] [address] Name: ROLAND WILLIAM Address: [address] [place] [address]
--- OUTSIDE RECORDS SUMMARY | 2023-09-23 06:12 | XMS_ITS | Continuity of Care Document ---
Author Organization [facility] ter Address [address] [place] [id number] Care Team Providers Care Overlock Sleeve Setter Name Role Phone Rojas KAPLAN, Asma Primary Care Physician Encounter [facility] Date(s): 09/09/22 - 09/10/[address] [id number] Encounter Diagnosis Foreign body in airway(Final) - 09/09/22 Discharge Disposition: A-D/C Home Attending Physician: Charlie Lynn DO Admitting Physician: Merline Coto MD Referring Physician: Not on Staff, Referring [...] 10/21/21 15:28:00 EDT, Route to Pharmacy Electronically, [id number], Partial fill upon patient request if the prescription is for a schedul... Start Date: 10/21/21 Status: Ordered atenolol 25 mg oral tablet 25 mg, Tablet, By Mouth, 09/10/22 9:00:00 EDT Start Date: 09/10/22 Stop Date: 09/10/22 Status: Completed Ativan 1 mg oral tablet 1 tablet [...] Refills, Maintenance, 10/21/21 15:24:00 EDT, Tablet, [facility]-[id number], Partial fill upon patient request if the prescription is for aschedule II opioid drug., 1 tablet By Mouth Daily i... Start Date: 10/21/21 Status: Ordered cholecalciferol 2000 intl units oral capsule 1 capsule = 50 mcg, By Mouth, Daily, # 30 capsule, 0 Refills, Maintenance, 10/21/21 15:27:00 EDT, Capsule, [facility]-[id number], Partial fill upon patient request if the [...] 15:30:00 EDT, Route to Pharmacy Electronically, [facility]-[id number], Partial fill upon patient request if the prescription is for a schedule II... Start Date: 10/21/21 Stop Date: 11/20/21 Status: Ordered fluticasone 50 mcg/inh nasal spray 1 sprays = 50 mcg, Nares, Both, Daily at bedtime, # 16 Gm, 0 Refills, Maintenance, 10/21/21 15:30:00 EDT, Nasal [place], [facility]- [id number], Partial fill upon patient request if the prescription is for a schedule II opioid drug., 1 spray... Start Date: 10/21/21 Status: Ordered folic acid 1 mg oral tablet 1 mg, 1, tablet, By Mouth, Daily, # 30 tablet, Refills 0, Tot. Refills 0, Maintenance, 10/21/21 15:30:00 EDT, Route to Pharmacy Electronically, [facility]-[id number], Partial fill upon patient request if the [...] Refills, Maintenance, 10/21/21 15:30:00 EDT, Tablet, [facility]-[id number], Partial fill upon patient request if the [...] Tablet, ; Start Date: 12/29/21 Status: Ordered [place]-3 1000 mg oral capsule 1 capsule = 1,000 mg, By Mouth, 3 times a day, # 90 capsule, 0 Refills, Maintenance, 10/21/21 15:27:00 EDT, Capsule, [facility]-[id number], Partial fill upon patient request if the [...] Exam Date Time Procedure Performing Provider Status 09/09/22 2:53 PM Neck Soft Tissue Amarilis Montilla; Auth (Verified) Notes: (Neck Soft Tissue) Reason For Exam: Foreign Body RESULT: Neck Soft Tissue Neck Soft Tissue Hx of Present Illness: ? ate rock pt has pica, 2 care workers with pt at all times, id bracelet on care worker due to pt risk of eating it; Reason: Foreign Body; Clinical Question(s): Foreign Body Location COMPARISON: 08/30/2022 FINDINGS: There is an arrowhead-shaped radiodense foreign body measuring 2.9 cm in length projecting over theairway at the level of the epiglottis. The airway distal to this level is patent. The prevertebral soft tissues are unremarkable. The osseous structures are unremarkable. IMPRESSION: Foreign body as described. An actionable message (Stephens) has been communicated via the [employer] system on 09/09/2022 3:09 PM, Message ID [id number]. WSN: [id number] Ordering Physician: Navjot Gordillo Dictated By: Radha Mcknight MD Dictated Date/Time: 09/09/22 3:09 pm Reviewed By: Radha Mcknight MD Signed By: Radha Mcknight MD Signed Date/Time: 09/09/22 3:09 pm Transcribed By: ROS Transcribed Date/Time: 09/09/22 3:08 pm Vital Signs Most recent to oldest [Reference Range]: 1 2 3 Height 158 cm (09/10/22 11:29 AM) 158 cm (09/10/22 8:00 AM) 158 cm (09/10/22 2:35 AM) Oxygen Saturation [94-100 %] 93 % *L* (09/10/22 11:29 AM) 93 % *L* (09/10/22 8:00 AM) 92 % *L* (09/10/22 2:35 AM) Pulse Rate [55-90 bpm] 52 bpm *L* (09/10/22 11:29 AM) 99 bpm *H* (09/10/22 9:28 AM) 99 bpm *H* (09/10/22 8:00 AM) Blood Pressure [90-138/55-84 mm Hg] 137/68mm Hg (09/10/22 11:29 AM) 114/74mm Hg (09/10/22 9:28 AM) 114/74mm Hg (09/10/22 8:00 AM) Respiratory Rate [16-30 br/min] 17 br/min (09/10/22 11:29 AM) 17 br/min (09/10/22 8:00 AM) 16 br/min (09/10/22 2:35 AM) Temperature [96.8-100.4 DegF] 98.3 DegF (09/10/22 11:29 AM) 97.8 DegF (09/10/22 8:00 AM) 98.1 DegF (09/10/22 2:35 AM) Mode of Delivery (Oxygen) Room air (09/10/22 11:29 AM) Room air (09/10/22 8:00 AM) Room air (09/10/22 2:35 AM) Blood pressure sites Arm, right (09/10/22 11:29 AM) Arm, right (09/10/22 8:00 AM) Arm, left (09/10/22 2:35 AM) Temperature Route Oral (09/10/22 11:29 AM) Oral (09/10/22 8:00 AM) Oral (09/10/22 2:35 AM) Dry Weight 100.5 kg (09/09/22 1:37 PM) Dry Weight Obtained Via Patient/family s tated (09/09/22 1:37 PM) Social History Social History Type Response Smoking Status Never (less than 100 in lifetime) entered on: 09/17/20 Sex History and physical note * Ricco Karimi DO: PERFORM, MODIFY, MODIFY, MODIFY Event Display: History and Physical Hospital Authored Date: [id number] Patient: ??ADILENE MATHEWS ? Age:??27 Years?Sex:??Female?:??1995?? Chief Complaint/Reason for Consultation Ingestion of foreign body History of Present Illness This is??a 27-year-old female??with past medical history including autism,??Prader??Willi syndrome,??pica??with history of numerous??foreign body??inhalation/ingestion events,??and obesity, who currently presents to the??hospital??from her fdc??after she??ingested at work.?? The patient was complaining of some difficulty swallowing??and??shortness of breath??when she was in the ED.?? She did undergo soft tissue x-ray of the neck that showed a foreign body measuring 2.9 cm projecting overthe airway at the level of the epiglottis.?? The patient was taken to the OR for removal of the foreign body.?? She is now admitted for further management.?? She presently denies any complaints and is fairly somnolent, though arousable to voice. Review of Systems A complete review of systems was obtained and noted to be negative except as stated above in the HPI. Objective Measurements?? Height: 158 cm (09/10/22) Dry Weight: 100.5 kg (09/09/22) ? Vital Signs?? Temperature: 98.1 DegF (09/10/22 02:35:00) Temperature Route: Oral (09/10/22 02:35:00) Pulse Rate: 59 bpm (09/10/22 02:35:00) Heart Rate Monitored: 74 bpm (09/09/22 17:00:00) Respiratory Rate: 16 br/min (09/10/22 02:35:00) Systolic Blood Pressure: 110 mm Hg (09/10/22 02:35:00) Diastolic Blood Pressure: 60 mm Hg (09/10/22 02:35:00) Blood pressure sites: Arm, left (09/10/22 02:35:00) Mean Arterial Pressure: 77 mm Hg (09/10/22 02:35:00) Pulse Pressure: 50 mm Hg (09/10/22 02:35:00) Oxygen Saturation:??92 %??Low (09/10/22 02:35:00) Mode of Delivery (Oxygen): Room air (09/10/22 02:35:00) Early Warning Score: 2 (09/10/22 02:35:47) ? Physical Exam General: Alert, in no acute cardiopulmonary distress. Mental Status: Oriented to person, place and time. Normal affect. Head: Normocephalic. Eyes: Pupils are equal, round and reactive to light. Extraocular muscles intact. Ear, Nose and Throat: Oropharynx clear, mucous membranes moist. Ears and nose without masses, lesions or deformities. Trachea midline. Neck: Supple, Full range of motion. Respiratory: Clear to auscultation and percussion. No wheezing, rales or rhonchi. Cardiovascular: Heart sounds normal. Regular rate and rhythm, no murmurs, rubs or gallops. Gastrointestinal: Abdomen soft, non-tender, non-distended. Normal bowel sounds. No pulsatile mass. No hepatosplenomegaly. Neurologic: Cranial nerves II-XII grossly intact. No focal neurological deficits. Moves all extremities spontaneously. Sensation intact bilaterally. Skin: No rashes or lesions. No petechiae or purpura. No edema. Musculoskeletal: No cyanosis or clubbing. No gross deformities. Normal range of motion. Assessment/Plan This is a 27-year-old female with past medical history as outlined above, who??presents to the hospital??after she ingested??a foreign body (rock).?? Go to the OR for removal of the foreign body, and??she is now with??admitted for further management. ?? Foreign body in airway ??(T17.908A) PICA This patient will be admitted to an inpatient medical bed.?? She presents with foreign body ingestion and has undergone foreign body removal.?? She is okay??for??a clear liquid diet. ??She denies any??shortness of breath,??chest or abdominal pain,??or nausea or vomiting presently. ?? Prader-Willi syndrome Autism Anxiety We will continue patient on her fluoxetine??as well as as needed hydroxyzine and as needed Ativan. ?? Crohn's disease. Patient on mercaptopurine which will be continued.?? She also gets infusions of Stelara. ?? CODE STATUS. ??Patient is full code. ?? DVT prophylaxis.?? We will encourage early mobilization on this patient. ?? Patient seen on September 09, 2022. Total time spent with patient and in coordination of care: including reviewing the chart/medical records, speaking with the patient, formulating and discussing the treatment plan, and documenting thefindings and encounter:?50 + min ? Histories Allergies Allergies ?(Active and Proposed Allergies Only) LMX 4 with Tegaderm? (Severity: Unknown severity, Onset: Unknown) Haldol? (Severity: Unknown severity, Onset: Unknown) ? Past Medical History/Problem List Active Problems??(11) Anxiety Autism spectrum Constipation Crohn disease Dermatitis History of foreign body ingestion Pica Prader-Willi syndrome Severe obesity ? Past Surgical History Bronchoscopy with removal of foreign body: 07/05/22 Flexible bronchoscopy: 07/05/22 Esophagogastroduodenoscopy: 02/23/22 EGD - Esophagogastroduodenoscopy: 10/16/21 ? Social History Resides in a fdc Alcohol Details:??Use: Never. Substance Abuse Details:??Use: Never. Tobacco Details:??Use: Never (less than 100 in lifetime). ?? Family Medical History Unable to obtain from patient Medications Home Medications??(confirmed by nurse with patient's??fdc workers) Acetaminophen (acetaminophen 325 mg oral tablet)?650?Milligram?2?tablet?By Mouth?Daily?as [...] Naltrexone (naltrexone 50 mg oral tablet)?1?tab(s)?50?Milligram?By Mouth?Daily [place]-3 Polyunsaturated Fatty Acids ([place]-3 1000 mg oral capsule)?1?capsule?1,000?Milligram?By Mouth?3 times a [...] subcutaneous solution)?1?Milliliter?90?Milligram?Subcutaneous Injection?Every 8 Weeks?on Fridays ? Results Recent Labs BLOOD COUNT & DIFF WBC 6.8 k/mm3 ()?? 09/09/2022 15:02 RBC 4.55 m/mm3 ()?? 09/09/2022 15:02 Hgb 12.9 Gm/dL ()?? 09/09/2022 15:02 Hct 41.0 % ()?? 09/09/2022 15:02 MCV 90.1 femtoliters ()?? 09/09/2022 15:02 MCH 28.4 pg ()?? 09/09/2022 15:02 MCHC 31.5 g/dL (Low)?? 09/09/2022 15:02 Platelet Count 244 k/mm3 ()?? 09/09/2022 15:02 RDW-SD 46.9 femtoliters ()?? 09/09/2022 15:02 MPV 11.3 femtoliters ()?? 09/09/2022 15:02 Nucleated RBC (Automated) 0.0 #/100 WBC'S ()?? 09/09/2022 15:02 Abs. NRBC 0.0 k/mm3 ()?? 09/09/2022 15:02 Abs. Neut 4.9 k/mm3 ()?? 09/09/2022 15:02 Abs. Lymph 1.2 k/mm3 ()?? 09/09/2022 15:02 Abs. [place] 0.5 k/mm3 ()?? 09/09/2022 15:02 Abs. Eo 0.2 k/mm3 ()?? 09/09/2022 15:02 Abs. Baso 0.1 k/mm3 ()?? 09/09/2022 15:02 Neut % 71.5 % ()?? 09/09/2022 15:02 Lymph % 17.4 % ()?? 09/09/2022 15:02 [place] % 7.5 % ()?? 09/09/2022 15:02 Eos % 2.3 % ()?? 09/09/2022 15:02 Baso % 0.7 % ()?? 09/09/2022 15:02 Imm Gran 0.6 % ()?? 09/09/2022 15:02 Abs. Imm Gran 0.0 k/mm3 ()?? 09/09/2022 15:02 ?? CHEM GENERAL Sodium 141 mmol/L ()?? 09/09/2022 15:03 Potassium 4.3 mmol/L ()?? 09/09/2022 15:03 Chloride 101 mmol/L ()?? 09/09/2022 15:03 Bicarbonate Level 31 mmol/L (High)?? 09/09/2022 15:03 Anion Gap 9 ()?? 09/09/2022 15:03 Glucose Level 102 mg/dL (High)?? 09/09/2022 15:03 BUN 24 mg/dL (High)?? 09/09/2022 15:03 Creatinine-Blood 0.9 mg/dL ()?? 09/09/2022 15:03 Estimated GFR Creatinine 90 ML/MIN/1.73 M2 ()?? 09/09/2022 15:03 Calcium 10.4 mg/dL ()?? 09/09/2022 15:03 Protein, Total 7.2 Gm/dL ()?? 09/09/2022 15:03 Albumin 4.6 Gm/dL ()?? 09/09/2022 15:03 AG Ratio 1.8 ()?? 09/09/2022 15:03 Alkaline Phosphatase 76 units/L ()?? 09/09/2022 15:03 AST (SGOT) 23 units/L ()?? 09/09/2022 15:03 ALT (SGPT) 36 units/L (High)?? 09/09/2022 15:03 Bilirubin, Total 0.3 mg/dL ()?? 09/09/2022 15:03 ?? HEME OTHER Hold Blue Top SPECIMEN DISCARDED AFTER 4 HOURS. ()?? 09/09/2022 15:02 ?? MISC. CHEMISTRY Hold Green Top SPECIMEN DISCARDED AFTER 1 WEEK ()?? 09/09/2022 15:02 ?? URINE OTHER Est Creatinine Clearance 74.96 mL/min ()?? 09/09/2022 16:07 ?? VIROLOGY COVID-19 by RT-PCR NEGATIVE ()?? 09/09/2022 19:28 ?(09/09/2022 14:53 EDT Neck Soft Tissue) FINDINGS:? There is an arrowhead-shaped radiodense foreign body measuring 2.9 cm in length projecting over theairway at the level of the epiglottis. The airway distal to this level is patent. The prevertebral soft tissues are unremarkable. ?? The osseous structures are unremarkable. ?? IMPRESSION: ?? Foreign body as described. [1] [1]??Neck Soft Tissue; Radha Mcknight MD 09/09/2022 14:53 EDT Hospital Progress note * Kayleen Peng: PERFORM, SIGN, VERIFY Event Display: Progress Note Hospital Authored Date: Patient: ADILENE MATHEWS Age: 27 years Sex: Female : 1995 Associated Diagnoses: None Author: Kayleen Peng Pt tolerated lunch with no issues. Discharge instructions given to and signed by fdc staff. No additional questions from patient. Patient transported off unit via wheelchair by transport staffand accompanied by fdc staff * Kayleen Peng: PERFORM, SIGN, VERIFY Event Display: Progress Note Hospital Authored Date: Patient: ADILENE MATHEWS Age: 27 years Sex: Female : 1995 Associated Diagnoses: None Author: Kayleen Peng Findings Problem Related to Alteration in Psychosocial : Alteration in Psychosocial Function/new 09/09/2022 19:00 EDT Alteration in Psychosocial Related to Other: PICA Goals & Outcomes, Psychosocial Psychosocial support will be provided to Pt/S.O. as needed, Pt will identify stressors leading up to event, Pt will state importance of adhering to medication regime, Pt/caregiver will be offered appropriate resources & support, Pt/caregiver will express feelings/needs/fears /concerns, Pt/caregiver will maintain/obtain psychological stability, Pt/caregiver will participate in coping skill counseling Interventions, Psychosocial Assess psychosocial needs, Assess readiness to learn needed lifestyle changes, Assess/monitor level of consciousness, Collaborate with provider for psychiatric consult, Evaluate resources & support system available to pt, Offer support; discuss coping strategies, Provide a calm, supportive environment, Provide chances to express concerns/emotions/expectations, Provide info on community resources for education, support, Provide information about illness and recovery, Provide verbal limits if pt's behavior escalates Goals/Interventions, Psychosocial Yes Psychosocial, Problem Start 09/09/2022 19:00 Reviewed Plan with, Psychosocial Family/caregiver not available Patient Progression, Psychosocial Plan Initiation . Alteration in Safety : Alteration in Safety/new 09/09/2022 19:00 EDT Alteration in Safety Related to Toxic Ingestion, Other: PICA Goals & Outcomes, Safety Psychosocial support will be provided to Pt/S.O. as needed, Pt/caregiver will state understanding of plan/goals of care, Pt will remain safe & injury free, Pt/caregiver will be offered appropriate resources & support, Pt/caregiver will verbalize understanding ofthe D/C plan, Pt airway will be patent while recovering from ingestion Interventions, Safety Provide info on community resources for education, support, Provide teaching as needed Goals/Interventions, Safety Yes Safety, Problem Start 09/09/2022 19:00 Reviewed plan with, Safety Family/caregiver not available Patient Progression, Safety Plan Initiation . Evaluation Pt A&Ox4. LCTA. No observed respiratory distressed. Denies SOB. Denies pain. Two staff members from fdc at bedside as well as additional constant vapor coater for safety. Tolerated clear liquids and medications this morning. Plan to dishcarge patient if tolerates solids at lunch. Bed lockedand low position. Call light in reach. . * Casie Keller: PERFORM, SIGN, VERIFY Event Display: Progress Note Hospital Authored Date: Patient: ADILENE MATHEWS Age: 27 years Sex: Female : 1995 Associated Diagnoses: None Author: Casie Keller Findings Narrative/Incidental Behavioral Resource Clinician Note: Chart reviewed due to order for Behavioral Resource Tech (BRT)/Constant Field Sales Specialist for foreign body ingestion ??? a rock. BEHAVIORAL SAFETY PLAN for FOREIGN BODY INGESTION K.L. on S1 (09/10/22) Please pass this paper to assigned BRT each shift change & when being covered for breaks. Pt is a 27 y/o female diagnosed with Prader Willi Syndrome, Autism and Pica ??? here for foreign body ingestion of a rock in the community. When previously hospitalized here in pt made ingestions on the unit: pieces of a plastic/straw, topplastic lid of coffee cup, soda can tab and a hair band. Recommendations: -BRT/CC for safety to reduce risk of ingestion ENVIORNMENTAL: -Room should be checked once per day shift and once per evening shift. Do this as part of routine ??? not calling attention or emotion to the task in front of pt (this will reduce reinforcing any negative behaviors) -Private room -Remove objects close to the patient that could be used for repeated injury (excess medical equipment, gloves, linens etc???) -Bed, pillow, one linen (tags removed) allowed in room -ALL other items removed from room, tray table, curtains etc??? -NO WALKS ON UNIT as pt could grab things to conceal or ingest NUTRITION: - Meal trays will be left at nurse???s desk by dietary. Remove wrappings and put food in safety dishes. Remove plastic haas, silverware, paper products, sodas, straws, extra napkins etc??? -Please do not give popsicle sticks -Heavy plastic coffee mugs only ??? no Styrofoam cups, no plastic lids, finger foods only COMMUNICATION: -All BRTs, bridge expert, RNs working with pt should be given a sign out at shift change -Sign outside pt's room staing to check in with RN before entering -Assess pt???s understanding of their own triggers and symptoms of anxiety. Encourage them to use coping strategies have worked for them in the past: music, movies, calls to family, coloring, talkingto Warehouse Supervisor 3Rd Shift, deep breathing -Use limit setting (ex: pt needs to always keep hands visible and not near mouth) -Provide positive feedback when pt appropriately expresses anxiety or urges to ingest ??? offer alternative coping mechanisms - Maintain a non-judgmental attitude when talking with pt -Low threshold to call for help from other staff/call Code Yellow if needed -Avoid staff splitting by meeting with pt as a team instead of individually UNDERSTANDING PTs INGESTION BEHAVIOR: -Pt has previously required 2:1 staffing at the fdc and may be on 2:1 currently -She recently broke her own glasses and ingested pieces -Pt struggles with change and transitions ??? these can increase anxiety -When pt is anxious she is more likely to ingest -Ingestion has been premeditated and volitional ??? per fdc staff -Pt can tell grp home staff if she is thinking about ingesting a specific item -Pt may be getting secondary gains from ingestion (ex: hospital admissions, increased staff attention) Below are lists/examples of foreign objects to monitor (ex: medical equipment/IVs) and objects to be removed from environment: *Unit may contact Environmental Services to remove items from room (ex: paper towel/soap dispensers/plastics/items on scott with screws) ??? it is recommended to remove as much equipment and furniture as possible from patient room* ENVIRONMENTAL: ??? [place] ??? Nails/thumbtacks ??? Paperclips ??? Wall hooks/Command [place] ??? Side tray table (contains screws and mirror underneath that can pose ingestion risk) DIETARY: order finger foods only, remove following items on meal trays: ??? Plastic lids (coffee, condiments) ??? Styrofoam cups ??? Straws ??? Popsicle Sticks ??? Tin foil from juice/jello cups ??? Bottles caps/soda tabs (soda, soap, shampoo/conditioner) ??? Knives, spoons, forks MEDICAL EQUIPMENT: ??? Gloves and masks ??? Mask metal wires (remove!) ??? Batteries ??? Tad ? ? IVs & attachments ? monitor (pt? s will break off plastic pieces from medical equipment) ??? Plastic objects (plastic has been swallowed from IV port, bed call neri, emergency call neri inrestroo) LINENS & HYGIENE: ? ? Tags from linens & gowns ??? Dressing from IV or wound sites ??? Paper towels/TP ??? Tampons/pads ??? Alcohol pads or wipes ??? Linens ??? usually torn apart to swallow or insert MISC: ??? Pens, pencils, crayons, markers, sharpeners ??? Razors ??? Tweezers and scissors ??? Jewelry ??? Ray pins/hair bands ? ? Glass objects that can be broken & swallowed [place] [phone] or [facility] with any questions or concerns; Casie Keller, Ashlie Oro, Maryann Shelby, Argelia Bates and Jorge Schuster . Note * Kayleen Peng: PERFORM Event Display: Discharge/Transfer Note Hospital Authored Date: Nursing Discharge Note Entered On: 09/10/2022 16:24 EDT Performed On: 09/10/2022 13:10 EDT by Kayleen Peng Nursing Discharge Note 2 Discharge Time : 09/10/2022 13:10 EDT Discharge Level of Care at Discharge : Home/Detention/Foster Care Patient Left Unit Via : Wheelchair Patient Accompanied Off Unit with : Responsible adult DC Instructions Provided & Signed by Pt : Yes Patient Understands D/C Instructions : Yes Patient Instructions Discharge Signed : Yes Did Pt have Specialty Bed or Wound Vac : No Kayleen Peng - 09/10/2022 16:23 EDT * Charlie Lynn DO S: MODIFY, PERFORM Event Display: Discharge/Transfer Note Hospital Authored Date: Patient: ??ADILENE MATHEWS ? Age:??27 Years?Sex:??Female?:??1995?? Patient Information Discharge Location: S1 Primary Care Physician: Rojas KAPLAN, [place] Admit Date/Time: 09/09/22 15:02 Discharge Date:??09/10/2022 10:35 Discharge Disposition Discharge Disposition: Home: No Services Discharge Diagnosis Foreign body in airway (T17.908A) Autism spectrum Foreign body ingestion Prader-Willi syndrome [...] 5 mg oral tablet)?5?Milligram?1?tablet?By Mouth?Daily at bedtime [place]-3 Polyunsaturated Fatty Acids ([place]-3 1000 mg oral capsule)?1?capsule?1,000?Milligram?By Mouth?3 times a [...] Injection?Every 8 Weeks?on Fridays ? Medications Started none Medications Discontinued none Doses Changed none Hospital Course ??27-year-old female with past medical history as outlined above, who??presents to the hospital??after she ingested??a foreign body (rock).?? Go to the OR for removal of the foreign body, and??she isnow with??admitted for further management. ?? Foreign body in airway ??(T17.908A) PICA She presents with foreign body ingestion and has undergone foreign body removal.?? She denies any??shortness of breath,??chest or abdominal pain,??or nausea or vomiting presently. tolerating pureed diet without issue ?? plan of care discussed with pt and??fdc staff. ? Objective Vital Signs?? Temperature: 97.8 DegF (09/10/22 08:00:00) Temperature Route: Oral (09/10/22 08:00:00) Pulse Rate:??99 bpm??High (09/10/22 09:28:00) Heart Rate Monitored: 74 bpm (09/09/22 17:00:00) Respiratory Rate: 17 br/min (09/10/22 08:00:00) Systolic Blood Pressure: 114 mm Hg (09/10/22 09:28:00) Diastolic Blood Pressure: 74 mm Hg (09/10/22 09:28:00) Blood pressure sites: Arm, right (09/10/22 08:00:00) Mean Arterial Pressure: 87 mm Hg (09/10/22 08:00:00) Pulse Pressure: 40 mm Hg (09/10/22 08:00:00) Oxygen Saturation:??93 %??Low (09/10/22 08:00:00) Mode of Delivery (Oxygen): Room air (09/10/22 08:00:00) Early Warning Score: 4 (09/10/22 09:37:29) ? . Physical Exam General:??NAD Head:??NCAT Eyes:??EOMI Ear, Nose and Throat:??MMM Respiratory:??CTA Cardiovascular:RRR Gastrointestinal:??soft nt nd Neurologic :alert and oriented ?? Surgical Procedures Removal Foreign Body 09/09/2022 15:10 Consultants surgery Pending Results Basic Metabolic Panel ordered on 09/10/2022 Follow-Up Appointments Added Follow Up ?Time Frame ?Comments Rojas KAPLAN, Galen?1 week: call to discuss follow up visit Home Health Face to Face ^HomeHealth[facility]F Results Discharge Labs BLOOD COUNT & DIFF WBC 6.8 k/mm3 ()?? 09/09/2022 15:02 RBC 4.55 m/mm3 ()?? 09/09/2022 15:02 Hgb 12.9 Gm/dL ()?? 09/09/2022 15:02 Hct 41.0 % ()?? 09/09/2022 15:02 MCV 90.1 femtoliters ()?? 09/09/2022 15:02 MCH 28.4 pg ()?? 09/09/2022 15:02 MCHC 31.5 g/dL (Low)?? 09/09/2022 15:02 Platelet Count 244 k/mm3 ()?? 09/09/2022 15:02 RDW-SD 46.9 femtoliters ()?? 09/09/2022 15:02 MPV 11.3 femtoliters ()?? 09/09/2022 15:02 Nucleated RBC (Automated) 0.0 #/100 WBC'S ()?? 09/09/2022 15:02 Abs. NRBC 0.0 k/mm3 ()?? 09/09/2022 15:02 Abs. Neut 4.9 k/mm3 ()?? 09/09/2022 15:02 Abs. Lymph 1.2 k/mm3 ()?? 09/09/2022 15:02 Abs. [place] 0.5 k/mm3 ()?? 09/09/2022 15:02 Abs. Eo 0.2 k/mm3 ()?? 09/09/2022 15:02 Abs. Baso 0.1 k/mm3 ()?? 09/09/2022 15:02 Neut % 71.5 % ()?? 09/09/2022 15:02 Lymph % 17.4 % ()?? 09/09/2022 15:02 [place] % 7.5 % ()?? 09/09/2022 15:02 Eos % 2.3 % ()?? 09/09/2022 15:02 Baso % 0.7 % ()?? 09/09/2022 15:02 Imm Gran 0.6 % ()?? 09/09/2022 15:02 Abs. Imm Gran 0.0 k/mm3 ()?? 09/09/2022 15:02 ?? CHEM GENERAL Sodium 141 mmol/L ()?? 09/09/2022 15:03 Potassium 4.3 mmol/L ()?? 09/09/2022 15:03 Chloride 101 mmol/L ()?? 09/09/2022 15:03 Bicarbonate Level 31 mmol/L (High)?? 09/09/2022 15:03 Anion Gap 9 ()?? 09/09/2022 15:03 Glucose Level 102 mg/dL (High)?? 09/09/2022 15:03 BUN 24 mg/dL (High)?? 09/09/2022 15:03 Creatinine-Blood 0.9 mg/dL ()?? 09/09/2022 15:03 Estimated GFR Creatinine 90 ML/MIN/1.73 M2 ()?? 09/09/2022 15:03 Calcium 10.4 mg/dL ()?? 09/09/2022 15:03 Protein, Total 7.2 Gm/dL ()?? 09/09/2022 15:03 Albumin 4.6 Gm/dL ()?? 09/09/2022 15:03 AG Ratio 1.8 ()?? 09/09/2022 15:03 Alkaline Phosphatase 76 units/L ()?? 09/09/2022 15:03 AST (SGOT) 23 units/L ()?? 09/09/2022 15:03 ALT (SGPT) 36 units/L (High)?? 09/09/2022 15:03 Bilirubin, Total 0.3 mg/dL ()?? 09/09/2022 15:03 ? HEME OTHER Hold Blue Top SPECIMEN DISCARDED AFTER 4 HOURS. ()?? 09/09/2022 15:02 ? MISC. CHEMISTRY Hold Green Top SPECIMEN DISCARDED AFTER 1 WEEK ()?? 09/09/2022 15:02 ? URINE OTHER Est Creatinine Clearance 74.96 mL/min ()?? 09/09/2022 16:07 ? VIROLOGY COVID-19 by RT-PCR NEGATIVE ()?? 09/09/2022 19:28 ? Microbiology ?? COVID-19 (Novel Coronavirus), Rapid PCR?? Completed?? Source: Nasal Body Site: Nose Collected Dt/Tm: 09/09/2022 19:28 Last Updated Dt/Tm: 09/09/2022 20:32 ? 35_ minutes spent on discharge * Charlie Lynn DO: PERFORM Event Display: Discharge/Transfer Note Hospital Authored Date: Agree with change to OBS status. * Kayleen Peng: PERFORM Event Display: Patient Education/Instruction Authored Date: Inpatient Adult Discharge Instructions [place] [id number] Name: ADILENE MATHEWS : 1995 Visit: 09/09/2022 15:02:00 Current Date: 09/10/2022 12:26 Account: [id number] Inpatient Adult Discharge Instructions We would like [...] and their families. Surveys are administered by [employer] ?? If further treatment with your primary care physician or another doctor is recommended, it is important for you to keep the appointment. Call your primary care physician or return to the Emergency Department immediately if your condition worsens, fails to improve, or new symptoms develop. If you need to find a doctor, you can call [facility] [employer] [facility] for a referral at [phone] or toll free at [phone] or log in to [email or web address].. ?? You can view and manage your care through the patient portal or by using a health care lisa of your choosing. [employer] is a website that allows you to securely view your medical information including your hospital discharge summary, office visit summaries, medications and follow-up visits. You can also request appointments, renew medications, and request access to your medical information using a health care lisa of your choosing, or just ask a question. You can enroll at [email or web address] or register during your next office visit. You have been discharged from [facility], Patient Care Unit: S1. If you have any questions regarding these instructions after you leave, please call us and we will be happy to assist you. [facility] Your Care Team Attending Physician Charlie Lynn DO Discharging Providers Charlie Lynn DO Reason for Admission Ingestion of foreign body Your Diagnosis Foreign body in airway Tests Performed Below is a partial list of the tests performed during your hospitalization. You may have had other tests and procedures not included in this list. Please discuss all test results with your provider. Basic Metabolic Panel CBC w/ Differential Comprehensive Metabolic Panel COVID-19 (Novel Coronavirus), Rapid PCR HOLD BLUE TUBE HOLD GREEN TUBE HOLD LAVENDER TUBE XR Neck Soft Tissue Primary Care Provider Galen Xie MD Advance Directive Health Care Proxy on File Yes - Health Care Proxy Discharge Vitals Temperature: 98.3 DegF Height: 158 cm Pulse Rate:??52 bpm??Low ?? Respiratory Rate: 17 br/min ?? Systolic Blood Pressure: 137 mm Hg ?? Diastolic Blood Pressure: 68 mm Hg ?? Oxygen Saturation:??93 %??Low ?? Studies Pending All tests and labs ordered during this hospital stay have been completed unless listed below. Please discuss all pending results with your provider listed above in these instructions. ?? No incomplete studies found What to do next Instructions From Your Doctor Discharge Orders You Need to Schedule the Following Appointments Follow Up with??Galen Xie MD When:??Within 1 week: call to discuss follow up visit [facility] [address] [facility] [place] [address]- Discharge Medications ADILENE MATHEWS :1995 Visit Date:09/09/2022 Medications: Please continue your medications until treatment is completed or stopped by your provider. Medications not listed below should be discontinued. Discuss any questions related to medications with your provider. What How Much When Instructions Next Dose Unchanged Acetaminophen (acetaminophen 325 mg oral tablet) 2 tab(s) Oral Daily as needed for pain/fever as directed, as needed Unchanged Atenolol (atenolol 25 mg oral tablet) 1 tab(s) Oral Daily 09/11 Unchanged Calcium And Vitamin D Combination (calcium (as citrate)-vitamin D 200 mg-250 intl units oral tablet) 1 tab(s) Oral Daily in the morning 09/11 9 am Unchanged Cholecalciferol (cholecalciferol 2000 intl units oral capsule) 1 capsule Oral Daily Duration: 30 Days 09/11 9 am Unchanged DiphenhydrAMINE (Benadryl 25 mg oral capsule) 1 capsule Oral Daily as needed for as needed for itching as directed, as needed Unchanged Famotidine (famotidine 40 mg oral tablet) 1 tab(s) Oral Daily 09/11 9 am Unchanged Fluoxetine (FLUoxetine 20 mg oral capsule) 20 Milligram Oral Daily in the morning Duration: 30 Days 09/11 as needed Unchanged Fluticasone Nasal (fluticasone 50 mcg/ inh nasal spray) 1 spray(s) Nares, Both Daily at Bedtime as directed Unchanged Folic Acid (folic acid 1 mg oral tablet) 1 tab(s) Oral Daily 09/11 9 am Unchanged HydrOXYzine (hydrOXYzine hydrochloride 25 mg oral tablet) 1 tab(s) Oral Every 12 hours as needed for Agitation/ sleep as directed, as needed Unchanged Lorazepam (Ativan 1 mg oral tablet) 1 tab(s) Oral Twice a day as needed for as needed for anxiety as directed, as needed Unchanged Melatonin (melatonin 10 mg oral tablet) 1 tab(s) Oral Daily at Bedtime as needed for as needed for insomnia as directed Unchanged Mercaptopurine (mercaptopurine 50 mg oral tablet) 1 tab(s) Oral Daily 09/11 9 am Unchanged Naltrexone (naltrexone 50 mg oral tablet) 1 tab(s) Oral Daily 09/11 9 am Unchanged Olanzapine (ZyPREXA 5 mg oral tablet) 1 tab(s) Oral Daily at Bedtime as directed Unchanged [place]-3 Polyunsaturated Fatty Acids ([place]-3 1000 mg oral capsule) 1 capsule Oral 3 times a day Duration: 30 Days as directed Unchanged Polyethylene Glycol 3350 (MiraLax oral powder for reconstitution) 17 gram Oral Daily as needed for as needed dissolve in water before taking ?? as directed, as needed Unchanged Silver SulfADIAZINE Topical (silver sulfADIAZINE 1% topical cream) 1/4 ribbon Topically Daily at Bedtime FOR VAGINAL ITCHING ?? as directed Unchanged Sodium Chloride Nasal (Saline Nasal Mist) 2 spays Nares, Both Every 12 hours as needed for as needed for dry nasal passages as directed, as needed Unchanged Ustekinumab (Stelara PFS 90 mg/ mL subcutaneous solution) 1 Milliliter Subcutaneous Injection Every 8 Weeks on Fridays ?? as directed ?? What How Much When Comments Stop Taking Aripiprazole (ARIPiprazole 5 mg oral tablet) 1 tab(s) Oral Daily Test Results Below is a partial list of the most recent Laboratory test results done prior to this discharge. You may have had other tests and procedures not included in this list. Please discuss all test resultswith your provider. Est Creatinine Clearance - 74.96 mL/min (09/09/2022) Basic Metabolic Panel (09/10/2022) ???Sodium - 138 mmol/L???Potassium - 4.1 mmol/L???Chloride - 99 mmol/L???Bicarbonate Level - 28 mmol/L???Anion Gap - 11???Glucose Level - 135 mg/dL???BUN - 16 mg/dL???Creatinine-Blood - 0.9 mg/dL???Estimated GFR Creatinine - 91 ML/MIN/1.73 M2???Calcium - 9.4 mg/dL CBC w/ Differential (09/09/2022) ???WBC - 6.8 k/mm3???RBC - 4.55 m/mm3???Hgb - 12.9 Gm/dL???Hct - 41.0 %???MCV - 90.1 femtoliters???MCH - 28.4 pg???MCHC - 31.5 g/dL???Platelet Count - 244 k/mm3???RDW-SD - 46.9 femtoliters???MPV - 11.3 femtoliters???Nucleated RBC (Automated) - 0.0 #/100 WBC'S???Abs. NRBC - 0.0 k/mm3???Abs. Neut - 4.9 k/mm3???Abs. Lymph - 1.2 k/mm3???Abs. [place] - 0.5 k/mm3???Abs. Eo - 0.2 k/mm3???Abs. Baso - 0.1 k/mm3???Neut % - 71.5 %???Lymph % - 17.4 %???[place] % - 7.5 %???Eos % - 2.3 %???Baso % - 0.7 %???Imm Gran - 0.6 %???Abs. Imm Gran - 0.0 k/mm3 Comprehensive Metabolic Panel (09/09/2022) ???Sodium - 141 mmol/L???Potassium - 4.3 mmol/L???Chloride - 101 mmol/L???Bicarbonate Level - 31 mmol/L???Anion Gap - 9???Glucose Level - 102 mg/dL???BUN - 24 mg/dL???Creatinine-Blood - 0.9 mg/dL???Estimated GFR Creatinine - 90 ML/MIN/1.73 M2???Calcium - 10.4 mg/dL???Protein, Total - 7.2 Gm/dL???Alb umin - 4.6 Gm/dL???AG Ratio - 1.8???Alkaline Phosphatase - 76 units/L???AST (SGOT) - 23 units/L???ALT (SGPT) - 36 units/L???Bilirubin, Total - 0.3 mg/dL COVID-19 (Novel Coronavirus), Rapid PCR (09/09/2022) ???COVID-19 by RT-PCR - NEGATIVE HOLD BLUE TUBE (09/09/2022) ???Hold Blue Top - SPECIMEN DISCARDED AFTER 4 HOURS. HOLD GREEN TUBE (09/09/2022) ???Hold Green Top - SPECIMEN DISCARDED AFTER 1 WEEK HOLD LAVENDER TUBE (09/10/2022) ???Hold Lavender Top - SPECIMEN DISCARDED AFTER 24 HOURS. Allergies (NKA means No Known Allergies) Haldol LMX 4 with Tegaderm Problems Active Problems??(11) Anxiety?? Autism spectrum?? Constipation?? Crohn disease?? Dermatitis?? Foreign body in hypopharynx?? Foreign body ingestion?? Pica?? Prader-Willi syndrome?? Prader-Willi syndrome?? Severe obesity?? Education Materials Below is the list of Educational Leaflet Providered with your Discharge Instructions. Valuables and Belongings I fully understand and agree that [facility] accepts no responsibility for all my [...] Review of Valuable and Belonging List: With patient, With witness Date for Pt to Sign Valuables/Belongings: 09/09/22 20:15:00 ?? Other Discharge Information ? Pulmonary Rehab Status?? Pulmonary Rehab Discharge Status?? Respiratory Rate: 17 br/min ? Common Emergency Awareness Tips IS [...] are strongly encouraged to quit. Please call [facility] [employer] Link at [phone] or [phone] ([phone]) or log in to [email or web address] for referrals to smoking cessation programs. ?? 992 Suicide & Crisis Lifeline is available 19/10 if you or someone you know needs to find a reason to keep living. By calling 714 you'll be connected to a skilled, trained counselor at a crisis center in your area. INPATIENT DISCHARGE INSTRUCTIONS SIGNATURE PAGE ADILENE MATHEWS Location:[facility] Registration Date and Time:09/09/2022 15:02 EDT Primary Care Physician[facility], Attending Physician: Charlie Lynn DO, I ADILENE MATHEWS, have received the above patient education materials/instructions and have verbalized understanding. If ambulance or transport services are being used I further acknowledge being given a choice of service. ?? If you need to contact me, please call me at this number: . Patient/Grain Origination Specialist Name: Patient/Grain Origination Specialist Signature: Relationship to Patient: Witness Name/Signature: Date: Patient Care team information Care Team Personnel Name: John Frederick RN Position: [facility] RN Member Role: Primary Care Nurse Name: Minoo Rascon RN Position: [facility] RN Member Role: Primary Care Nurse Name: Anthony Viveros RN Position: [facility] RN Member Role: Primary Care Nurse Name: Galen Xie MD Position: [facility] Physician - Primary Care Member Role: PCP Address: Address: [address] [place], [place] [address] Name: Charla Galindo RN Position: [facility] RN Member Role: Primary Care Nurse Name: Julia Sumner Position: [facility] RN Member Role: Primary Care Nurse Name: Bessie Gomes RN Position: [facility] RN Member Role: Primary Care Nurse Name: Ashlie Goodman RN Position: [facility] RN Member Role: Primary Care Nurse Name: Danielle Griffith RN Position: [facility] RN Member Role: Primary Care Nurse Name: Aneta Conte RN Position: [facility] RN Member Role: Primary Care Nurse Name: Carmelina Dunn LPN Position: [facility] RN Member Role: Primary Care Nurse Name: Janay Judd RN Position: [facility] RN Member Role: Primary Care Nurse Name: Brit Gracia RN Position: [facility] RN Member Role: Primary Care Nurse Name: Karma Miller RN Position: [facility] RN Member Role: Primary Care Nurse Name: *REZA, ED Attending Position: [facility] ED Attendings Patient Name: *REZA Inpt Attending Position: [facility] ED Medicine MD Name: Chevy Downs RN Position: [facility] ED RN W/OE and Tasks Member Role: Patient Care Provider Name: Danae Bravo Position: [facility] ED TA [facility] Member Role: Patient Care Provider Care Team Related Persons Name: ELIZABETH REES Address: [address] [place] [address] Name: MELO KUMAR Address: [address] [place] [address] Name: ROLAND WILLIAM Address: [address] [place] [address]
--- OUTSIDE RECORDS SUMMARY | 2023-09-23 06:12 | XMS_ITS | Continuity of Care Document ---
Author Organization [facility] ter Address [address] [place] [id number]- Care Team Providers Care Twisting Frame Changer Name Role Phone Rojas KAPLAN, Asma Primary Care Physician [place] [facility] [place]): [place] - 07/24/[address] [address] Encounter Diagnosis Pica in adults(Final) - 07/24/22 Discharge Disposition: A-D/C Home Attending Physician: Seth Saini MD Admitting Physician: Seth Saini MD Referring Physician: Not on Staff, Referring [...] 10/21/21 15:28:00 EDT, Route to Pharmacy Electronically, [facility]-[id number], Partial fill upon patient request if the prescription is for a schedule... Start Date: 10/21/21 Status: Ordered atenolol 25 mg oral tablet 25 mg, Tablet, By Mouth, 07/24/22 9:00:00 EDT Start Date: 07/24/22 Stop Date: 07/24/22 Status: Completed atenolol 25 mg oral tablet 25 mg, 1, tablet, By Mouth, Daily, # 30 tablet, Refills 0, Tot. Refills 0, Maintenance, 10/21/21 15:28:00 EDT, Route to Pharmacy Electronically, [facility]-[id number], Partial fill upon patient request if the [...] 0 Refills, Maintenance, 10/21/21 15:24:00 EDT, Tablet, [facility]-[id number], Partial fill upon patient request if the prescription is for aschedule II opioid drug., 1 tablet By Mouth Daily i... Start Date: 10/21/21 Status: Ordered cholecalciferol 2000 intl units oral capsule 1 capsule = 50 mcg, By Mouth, Daily, # 30 capsule, 0 Refills, Maintenance, 10/21/21 15:27:00 EDT, Capsule, [facility]-[id number], Partial fill upon patient request if the [...] 10/21/21 15:30:00 EDT, Route to Pharmacy Electronically, [facility]-[id number], Partial fill upon patient request if the prescription is for a schedule II... Start Date: 10/21/21 Stop Date: 11/20/21 Status: Ordered fluticasone 50 mcg/inh nasal spray 1 sprays = 50 mcg, Nares, Both, Daily at bedtime, # 16 Gm, 0 Refills, Maintenance, 10/21/21 15:30:00 EDT, Nasal [place], [facility]- 22678, Partial fill upon patient request if the prescription is for a schedule II opioid drug., 1 spray... Start Date: 10/21/21 Status: Ordered folic acid 1 mg oral tablet 1 mg, 1, tablet, By Mouth, Daily, # 30 tablet, Refills 0, Tot. Refills 0, Maintenance, 10/21/21 15:30:00 EDT, Route to Pharmacy Electronically, [facility]-[id number], Partial fill upon patient request if the [...] 0 Refills, Maintenance, 10/21/21 15:30:00 EDT, Tablet, [facility]-32083, Partial fill upon patient request if the [...] Tablet, ; Start Date: 12/29/21 Status: Ordered Wylie-3 1000 mg oral capsule 1 capsule = 1,000 mg, By Mouth, 3 times a day, # 90 capsule, 0 Refills, Maintenance, 10/21/21 15:27:00 EDT, Capsule, [facility]-[id number], Partial fill upon patient request if the [...] Exam Date Time Procedure Performing Provider Status 07/23/22 8:47 PM Neck Soft Tissue Ubaldo Cr Notes: (Neck Soft Tissue) Reason For Exam: Foreign Body RESULT: Neck Soft Tissue Neck Soft Tissue Hx of Present Illness: pt coming from correction after swallowing non slip circular bath mat sticker; Reason: Foreign Body; Clinical Question(s): Foreign Body Location COMPARISON: 07/05/2022. FINDINGS: Patent nasopharynx. No abnormal adenoidal enlargement. No radiopaque foreign body. Normal retropharyngeal and retrotracheal soft tissues. Normal airway. Normal bones. Impacted right mandibular wisdom tooth with thin surrounding lucency. IMPRESSION: No radiopaque foreign body. Impacted right mandibular wisdom tooth with surrounding thin lucency. WSN: [id number] Ordering Physician: Gato Bernabe Dictated By: Omer Vogel MD Dictated Date/Time: 07/23/22 9:35 pm Reviewed By: Omer Vogel MD Signed By: Omer Vogel MD Signed Date/Time: 07/23/22 9:35 pm Transcribed By: ROS Transcribed Date/Time: 07/23/22 9:33 pm * Exam Date Time Procedure Performing Provider Status 07/23/22 8:33 PM Chest 2 Views Frontal and Lat Amarilis Montilla; Auth (Verified) Notes: (Chest 2 Views Frontal and Lat) Reason For Exam: Shortness of Breath RESULT: Chest 2 Views Frontal and Lat Chest 2 Views Frontal and Lat Hx of Present Illness: pt coming from correction after swallowing non slip circular bath mat sticker; Reason: Shortness of Breath; Clinical Question(s): CHF COMPARISON: 07/21/2022 FINDINGS: LINES AND TUBES: None. LUNGS AND PLEURA: Clear lungs. Normal pulmonary vascularity. No pleural effusion. No pneumothorax. HEART, MEDIASTINUM AND ROSA MARIA: Heart is normal in size. Normal mediastinal and hilar contour. BONES AND SOFT TISSUES: No acute abnormality. IMPRESSION: No acute abnormality. No radiopaque foreign body identified on limited exam. WSN: [id number] Ordering Physician: Gato Bernabe Dictated By: Juan Denney MD Dictated Date/Time: 07/23/22 8:54 pm Reviewed By: Juan Denney MD Signed By: Juan Denney MD Signed Date/Time: 07/23/22 8:54 pm Transcribed By: ROS Transcribed Date/Time: 07/23/22 8:51 pm Vital Signs Most recent to oldest [Reference Range]: 1 2 3 Oxygen Saturation [94-100 %] 96 % (07/24/22 11:48 AM) 93 % *L* (07/24/22 8:34 AM) 96 % (07/24/22 5:42 AM) Pulse Rate [55-90 bpm] 85 bpm (07/24/22 11:48 AM) 93 bpm *H* (07/24/22 10:45 AM) 68 bpm (07/24/22 8:34 AM) Blood Pressure [90-138/55-84 mm Hg] 138/74mm Hg (07/24/22 11:48 AM) 125/71mm Hg (07/24/22 10:45 AM) 125/71mm Hg (07/24/22 8:34 AM) Respiratory Rate [16-30 br/min] 17 br/min (07/24/22 11:48 AM) 16 br/min (07/24/22 8:34 AM) 17 br/min (07/24/22 4:05 AM) Temperature [96.8-100.4 DegF] 98.3 DegF (07/24/22 11:48 AM) 97.9 DegF (07/24/22 8:34 AM) 98.9 DegF (07/24/22 4:05 AM) Liters per Minute 2 L/min (07/24/22 5:42 AM) 3 L/min (07/24/22 4:05 AM) 3 L/min (07/24/22 2:52 AM) Mode of Delivery (Oxygen) Room air (07/24/22 11:48 AM) Room air (07/24/22 8:34 AM) Room air (07/24/22 5:42 AM) Blood pressure sites Arm, left (07/24/22 11:48 AM) Arm, left (07/24/22 8:34 AM) Arm, left (07/24/22 4:05 AM) Temperature Route Oral (07/24/22 11:48 AM) Axillary (07/24/22 8:34 AM) Oral (07/24/22 4:05 AM) Social History Social History Type Response Smoking Status Never (less than 100 in lifetime) entered on: 09/17/20 Sex History and physical note * Kayleen Quiles MD: MODIFY, PERFORM Event Display: History and Physical Hospital Authored Date: Patient: ??ADILENE MATHEWS ? Age:??27 Years?Sex:??Female?:??1995?? Chief Complaint pt ate bathtub anti slip shower sticker, on 2L at baseline ?? Referring Physician:??Jp Consulting Physician:??Yeny Reason for Consultation:??Inhaled/ingested foreign body History of Present Illness Adilene Mathews is a 27-year-old correction resident with a history of autism, Prader-Willi, and picawith numerous foreign body inhalation/ingestion events, who presented to the ED after putting an anti-slip shower/bath tub sticker in her??mouth.?? She has previously presented to the ED with similarconcerns after ingestion of other foreign bodies.?? On this particular occasion, she was in a shower with anti-slip stickers in the bottom of the tub; she managed to pry one of the stickers off the tub and put it in her mouth.?? The sticker got stuck in the back of her throat and she had some drooling/dysphagia, so she was transported to [facility] for further care.?? She was accompanied by staff wo ashley, who noted that her voice was slightly muffled.?? Additionally, her legal guardian noted thatshe has been having some issues with her oxygen saturations since she required intubation for the swallowed bottle cap on 07/05/2022.?? Here, the patient was found to be breathing comfortably, but did require oxygen via nasal??cannula to maintain her saturations.?? She endorsed putting the sticker inher mouth, which has been accompanied by pain and difficulty with swallowing.?? She denied any chest pain or shortness of breath.?? In the ED, plain films were obtained that were not able to visualize the foreign body.?Thus, both Anesthesia and??Trauma Surgery were called to assess.. Review of Systems A 10-point review of systems was negative except as documented in the HPI.?? Physical Exam Vitals & Measurements T:??97.7?F ?? MA:??62?? RR:??16?? BP:??119/92?? SpO2:??100%?? General: alert, awake, normal speech Eyes: extraocular movement intact Nose: no epistaxis, no deformity Mouth: drooling, unable to visualize FB in the oropharynx Chest: symmetric, no deformity Heart: regular rate and rhythm Lungs: clear to auscultation bilaterally Abdomen: soft, nontender, nondistended Skin: no rashes or lesions Extremities: no calf tenderness Neurologic: alert & answering questions appropriately Vascular: extremities are warm and well-perfused Assessment/Plan Adilene Mathews is a 27-year-old correction resident with a history of autism, Prader-Willi, and picawith??numerous foreign body inhalation/ingestion events, who presented to the ED after puttingn an anti-slip shower/bath tub sticker in her mouth.?? The object was unable to be visualized at bedside,so we will plan to take her to the OR for removal. ?? Plan NPO OR for EUA, direct laryngoscopy, FB removal, possible bronchoscopy, and possible endoscopy Anesthesia aware of difficult airway Further plans pending OR findings ?? [place] [phone] with any questions or concerns. ?? Discussed with attending surgeon, Dr. Saini. Problem List/Past Medical History Ongoing Anxiety Autism spectrum Constipation Crohn disease Dermatitis Foreign body in hypopharynx Foreign body ingestion Pica Prader-Willi syndrome Prader-Willi syndrome Severe obesity Historical Obese class II Procedure/Surgical History Bronchoscopy with removal of foreign body: 07/05/22 Flexible bronchoscopy: 07/05/22 Esophagogastroduodenoscopy: 02/23/22 EGD - Esophagogastroduodenoscopy: 10/16/21 Home Medications Acetaminophen: 650 mg = 2 tablet, By Mouth, Daily, PRN (pain/fever) Aripiprazole: 5 mg = 1 tablet, By Mouth, Daily Atenolol: 25 mg = 1 tablet, By Mouth, Daily Calcium And Vitamin D Combination: 1 tablet, By Mouth, Daily in AM Cholecalciferol: 50 mcg = 1 capsule, By Mouth, Daily DiphenhydrAMINE: 25 mg = 1 capsule, By Mouth, Daily, PRN (as needed for itching) Famotidine: 40 mg = 1 tablet, By Mouth, Daily Fluoxetine: 20 mg, By Mouth, Daily in AM Fluticasone Nasal: 50 mcg = 1 sprays, Nares, Both, Daily at bedtime Folic Acid: 1 mg = 1 tablet, By Mouth, Daily HydrOXYzine: 25 mg = 1 tablet, By Mouth, Every 12 hours, PRN (Agitation/ sleep) Melatonin: 10 mg = 1 tablet, By Mouth, Daily at bedtime, PRN (as needed for insomnia) Mercaptopurine: 50 mg = 1 tablet, By Mouth, Daily Naltrexone: 50 mg = 1 tablet, By Mouth, Daily Wylie-3 Polyunsaturated Fatty Acids: 1,000 mg = 1 [...] Family History No family history recorded. Radiology RESULT: Chest 2 Views Frontal and Lat Chest 2 Views Frontal and Lat? Hx of Present Illness: pt coming from correction after swallowing non slip circular bath mat sticker; Reason: Shortness of Breath; Clinical Question(s): CHF ?? COMPARISON: 07/21/2022 ?? FINDINGS: ?? LINES AND TUBES:?? None. ?? LUNGS AND PLEURA: Clear lungs. Normal pulmonary vascularity.?? No pleural effusion.?? No pneumothorax. ?? HEART, MEDIASTINUM AND ROSA MARIA:?? Heart is normal in size. Normal mediastinal and hilar contour. ?? BONES AND SOFT TISSUES:?? No acute abnormality. ?? IMPRESSION: ?? No acute abnormality. ?? No radiopaque foreign body identified on limited exam. ? RESULT: Neck Soft Tissue Neck Soft Tissue? Hx of Present Illness: pt coming from correction after swallowing non slip circular bath mat sticker; Reason: Foreign Body; Clinical Question(s): Foreign Body Location ?? COMPARISON: 07/05/2022. ?? FINDINGS:? Patent nasopharynx. No abnormal adenoidal enlargement. No radiopaque foreign body. ?? Normal retropharyngeal and retrotracheal soft tissues. Normal airway. ?? Normal bones. Impacted right mandibular wisdom tooth with thin surrounding lucency. ?? IMPRESSION:? No radiopaque foreign body. Impacted right mandibular wisdom tooth with surrounding thin lucency. Lab Results Labs Last 24 Hours No qualifying data available. * Seht Saini MD: PERFORM Event Display: History and Physical Hospital Authored Date: I have personally seen and evaluated the patient, lab work and imaging on the day of below/above resident note. ??I agree with the documented resident note and plan for care, as above. ?? Seth Saini, ??, MPH, [facility] Trauma, General Surgery and [facility] Progress note * Minoo Rascon RN: PERFORM, SIGN, VERIFY Event Display: Progress Note Hospital Authored Date: Patient: ADILENE MATHEWS Age: 27 years Sex: Female : 1995 Associated Diagnoses: None Author: Minoo Rascon RN Findings Evaluation Patient alert and oriented x 4. VSS. Denies pain. Lungs are clear with dim bases. Denies chest pain/SOB. Sating 94 percent on 2 liters oxygen. SR on telemetry. + pedal pulses, + CMS, + 2 edema noted to bilateral upper/lower extremities. Abdomen is soft, round and non-tender with + bowel sounds x 4. Denies nausea/vomiting. Tolerating pureed diet. Last bowel movement 07/23. Ambulating with standby assist in room. Voiding adequate amounts of CYU. Skin is intact. Patient resting comfortably in chairwith call neri within reach. Bed in lowest locked position.. * Daxa Stevens RN: MODIFY, SIGN, PERFORM, SIGN, VERIFY, MODIFY, SIGN Event Display: Progress Note Hospital Authored Date: [id number] Patient: ADILENE MATHEWS Age: 27 years Sex: Female : 1995 Associated Diagnoses: None Author: Daxa Stevens RN Findings Problem Related to Alteration in Psychosocial : Alteration in Psychosocial Function/new 07/23/2022 23:00 EDT Alteration in Psychosocial Related to Other: Pica, swallowing foreign objects Goals & Outcomes, Psychosocial Psychosocial support will be provided to Pt/S.O. as needed, Pt/caregiver will be offered appropriate resources & support, Pt/caregiver will express feelings/needs/fears /concerns, Pt/caregiver will maintain/obtain psychological stability, Other: Pt will not swallow any foreign objects Interventions, Psychosocial Assess psychosocial needs, Assess readiness to learn needed lifestyle changes, Assess/monitor level of consciousness, Evaluate resources & support system available to pt, Offer support; discuss coping strategies, Provide a calm, supportive environment, Provide chances to express concerns/emotions/expectations, Provide verbal limits if pt's behavior escalates BH Goals/Interventions, Psychosocial Yes Psychosocial, Problem Start 07/23/2022 23:50 Reviewed Plan with, Psychosocial Patient Patient Progression, Psychosocial Pt progressing according to plan . Nursing Data Vital Signs : VITAL SIGNS SECTION 07/24/2022 0:57 EDT Early Warning Score 4.00 07/24/2022 0:57 EDT Temperature 97.8 DegF Temperature Route Oral Pulse Rate 88 bpm Respiratory Rate 17 br/min Systolic Blood Pressure 119 mm Hg Diastolic Blood Pressure 49 mm Hg L Blood pressure sites Arm, left Mean Arterial Pressure 72 mm Hg Pulse Pressure 70 mm Hg Oxygen Saturation 95 % Liters per Minute 2 L/min Mode of Delivery (Oxygen) Nasal cannula . Narrative/Incidental Pt arrived to the unit from PACU at approximately 2350. Pt is alert and oriented x4, cognitive delay present. VSS. Pt denies any pain at this time. Positive CMS. +2 nonpitting edema to all extremities. On telemetry, reading NSR with HR in the 80-90's. Lungs were clear but diminished in the bases, on 3L of O2 via nasal cannula. On continuous O2, satting in the mid to high 90's. Hypoactive bowel keith nds. Abdomen soft, round, and nontender. Denies nausea and vomiting. Bladder scan down in PACU 276mL. Pt ambulates as a stand-by assist. Skin assessment done by myself and RN Ny Nielson. Skin is intact. Friction injury noted to left lower extremity. Small abrasion to right knee. Scar noted to left upper quadrant. Call neri is within reach and bed set to the lowest position. Pt is voiding. Currently on 2L of O2 via nasal cannula, satting in high 90's. . Note * Minoo Rascon RN: PERFORM Event Display: Discharge/Transfer Note Hospital Authored Date: [id number] Nursing Discharge Note Entered On: 07/24/2022 14:33 EDT Performed On: 07/24/2022 14:00 EDT by Minoo Rascon RN Nursing Discharge Note 2 Discharge Time : 07/24/2022 14:00 EDT Discharge Level of Care at Discharge : Home/Jail/Foster Care Patient Left Unit Via : Ambulatory Patient Accompanied Off Unit with : Responsible adult DC Instructions Provided & Signed by Pt : Unable Patient Understands D/C Instructions : Unable Patient Instructions Discharge Signed : Yes Did Pt have Specialty Bed or Wound Vac : No Minoo Rascon RN - 07/24/2022 14:32 EDT * Claire Reddy MD: PERFORM, SIGN, VERIFY, SIGN Event Display: Discharge/Transfer Note Hospital Authored Date: [id number] Patient: ADILENE MATHEWS Age: 27 years Sex: Female : 1995 Associated Diagnoses: None Author: Claire Reddy MD Discharge Information Admission Date: 07/23/2022 Discharge Date 07/24/2022 Primary Care Provider: Galen Xie MD Principal Discharge Diagnosis Foreign body - Ingested: Present on admission - yes. Medications MEDICATION LIST Medications reviewed.. Chief Complaint/Reason for Admission foreign body ingestion Aware of diagnosis: patient. Procedures Procedure/Surgical History Procedure history reviewed.. Allergies Allergic Reactions (All) Severity Not Documented Haldol- No reactions were documented. LMX 4 with Tegaderm- No reactions were documented. Discharge condition: excellent Compared to admission: improved Case Management Discharge Plan : (Date Range: 07/17/2022 0:00 EDT - 07/24/2022 12:18 EDT) Code status: Full Vaccines Given this Hospitalization .. Hospital Course Adilene Mathews is a 27-year-old correction resident with a history of autism, Prader-Willi, and picawith numerous foreign body inhalation/ingestion events, who presented to the ED after putting an anti-slip shower/bath tub sticker in her mouth. The object was unable to be visualized at bedside, so she was taken to the OR for removal via endoscopy, foreign body was retrieved. Patient has remained hemodynamically stable, is eating and drinking, ambulating without difficulties. She will be discharged back to her correction. Patient denies headache, nausea, vomiting, abdominal pain, difficulty breathing, chest pain, lightheadedness, or any other symptoms. Physical Exam Patient is: in no acute distress, alert, awake. Cardiac: RRR. Respiratory: CTA. Abdomen: Abdomen is soft, non-tender, non-distended. Neurologic: alert & oriented x 3. Extremities: palpable pulses, extremities warm and well perfused. Skin: Intact, no abrasions or rashes Postoperative Events Unexpected Return to the OR: no. Bleeding required re-operation: no. Significant Results Results: Vital signs : VITAL SIGNS SECTION 07/24/2022 11:48 EDT Temperature 98.3 DegF Temperature Route Oral Pulse Rate 85 bpm Respiratory Rate 17 br/min Systolic Blood Pressure 138 mm Hg Diastolic Blood Pressure 74 mm Hg Blood pressure sites Arm, left Pulse Pressure 64 mm Hg Oxygen Saturation 96 % Mode of Delivery (Oxygen) Room air . Discharge Plan Discharge Disposition Discharge: home. * Minoo Rascon RN: PERFORM Event Display: Patient Education/Instruction Authored Date: [id number] Inpatient Adult Discharge Instructions [address] [address] Name: ADILENE MATHEWS : 1995 Visit: 07/23/2022 19:38:00 Current Date: 07/24/2022 12:44 Account: [id number] Inpatient Adult Discharge Instructions We would like [...] and their families. Surveys are administered by [employer] ?? If further treatment with your primary care physician or another doctor is recommended, it is important for you to keep the appointment. Call your primary care physician or return to the Emergency Department immediately if your condition worsens, fails to improve, or new symptoms develop. If you need to find a doctor, you can call [facility] Myfacepage for a referral at [phone] or toll free at [phone]) or log in to [email or web address].. ?? You can view and manage your care through the patient portal or by using a health care lisa of your choosing. [employer] is a website that allows you to securely view your medical information including your hospital discharge summary, office visit summaries, medications and follow-up visits. You can also request appointments, renew medications, and request access to your medical information using a health care lisa of your choosing, or just ask a question. You can enroll at [email or web address] or register during your next office visit. You have been discharged from [facility], Patient Care Unit: SW6. If you have any questions regarding these instructions after you leave, please call us and we will be happy to assist you. [facility] Your Care Team Attending Physician Yeny KAPLAN, Seth Wick Discharging Providers Barry KAPLAN, Claire Nino Reason for Your Visit pt ate bathtub anti slip shower sticker, on 2L at baseline Your Diagnosis Foreign body - Ingested Pica in adults Tests Performed Below is a partial list of the tests performed during your hospitalization. You may have had other tests and procedures not included in this list. Please discuss all test results with your provider. XR Chest 2 Views Frontal and Lat XR Neck Soft Tissue Primary Care Provider Galen Xie MD Advance Directive . Discharge Vitals Temperature: 98.3 DegF Pulse Rate: 85 bpm Respiratory Rate: 17 br/min Systolic Blood Pressure: 138 mm Hg Diastolic Blood Pressure: 74 mm Hg Oxygen Saturation: 96 % Studies Pending All tests and labs ordered during this hospital stay have been completed unless listed below. Please discuss all pending results with your provider listed above in these instructions. ?? COVID-19 (Novel Coronavirus), Rapid PCR What to do next Instructions From Your Doctor You can resume all of your home medications as prescribed. ??Please follow-up with your primary care doctor.?? Please do not put??any objects in your mouth that is not food. Discharge Orders You Need to Schedule the Following Appointments Follow Up with??Galen Xie MD When?? Where: [address] [place] [address]- Discharge Medications ADILENE MATHEWS :1995 Visit Date:07/23/2022 Medications: Please continue your medications until treatment [...] oral tablet) 1 tab(s) Oral Daily Unchanged Wylie-3 Polyunsaturated Fatty Acids (Wylie-3 1000 mg oral capsule) 1 capsule Oral [...] Belongings I fully understand and agree that [facility] accepts no responsibility for all my personal [...] patient Date for Pt to Sign Valuables/Belongings: 07/24/22 00:57:00 ?? Other Discharge Information ? Pulmonary Rehab [...] are strongly encouraged to quit. Please call [facility] baseclick Link at [phone] or [phone] ([phone]) or log in to [email or web address] for referrals to smoking cessation programs. ?? 213 Suicide & Crisis Lifeline is available 19/10 if you or someone you know needs to find a reason to keep living. By calling 067 you'll be connected to a skilled, trained counselor at a crisis center in your area. INPATIENT DISCHARGE INSTRUCTIONS SIGNATURE PAGE VIPUL MATHEWSADILENE Location:[facility] Registration Date and Time:07/23/2022 19:38 EDT Primary Care Physician: Rojas KAPLAN, [facility], I ADILENE MATHEWS, have received the above patient education materials/instructions and have verbalized understanding. If ambulance or transport services are being used I further acknowledge being given a choice of service. ?? If you need to contact me, please call me at this number: . Patient/Vegetable Loader Machine Operator Name: Patient/Vegetable Loader Machine Operator Signature: Relationship to Patient: Witness Name/Signature: Date: * FREYA Ann S: TRANSCRIJuan Pate MD: VERIFY Event Display: Result: Authored Date: [id number] Chest 2 Views Frontal and Lat Hx of Present Illness: pt coming from correction after swallowing non slip circular bath mat sticker; Reason: Shortness of Breath; Clinical Question(s): CHF COMPARISON: 07/21/2022 FINDINGS: LINES AND TUBES: None. LUNGS AND PLEURA: Clear lungs. Normal pulmonary vascularity. No pleural effusion. No pneumothorax. HEART, MEDIASTINUM AND ROSA MARIA: Heart is normal in size. Normal mediastinal and hilar contour. BONES AND SOFT TISSUES: No acute abnormality. IMPRESSION: No acute abnormality. No radiopaque foreign body identified on limited exam. WSN: [id number] Ordering Physician: Gato Bernabe Dictated By: Juan Denney MD Dictated Date/Time: 07/23/22 8:54 pm Reviewed By: Juan Denney MD Signed By: Juan Denney MD Signed Date/Time: 07/23/22 8:54 pm Transcribed By: ROS Transcribed Date/Time: 07/23/22 8:51 pm * FREYA Ann S: CHRIS Vogel MD, Devrim: VERIFY Event Display: Result: Authored Date: [id number] Neck Soft Tissue Hx of Present Illness: pt coming from correction after swallowing non slip circular bath mat sticker; Reason: Foreign Body; Clinical Question(s): Foreign Body Location COMPARISON: 07/05/2022. FINDINGS: Patent nasopharynx. No abnormal adenoidal enlargement. No radiopaque foreign body. Normal retropharyngeal and retrotracheal soft tissues. Normal airway. Normal bones. Impacted right mandibular wisdom tooth with thin surrounding lucency. IMPRESSION: No radiopaque foreign body. Impacted right mandibular wisdom tooth with surrounding thin lucency. WSN: [id number] Ordering Physician: Gato Bernbae Dictated By: Omer Vogel MD Dictated Date/Time: 07/23/22 9:35 pm Reviewed By: Omer Vogel MD Signed By: Omer Vogel MD Signed Date/Time: 07/23/22 9:35 pm Transcribed By: ROS Transcribed Date/Time: 07/23/22 9:33 pm Patient Care team information Care Team Personnel Name: John Frederick RN Position: [facility] RN Member Role: Primary Care Nurse Name: Minoo Rascon RN Position: [facility] RN Member Role: Primary Care Nurse Name: Anthony Viveros RN Position: [facility] RN Member Role: Primary Care Nurse Name: Galen Xie MD Position: [facility] Physician (General Medicine) Member Role: PCP Address: Address: [address] Name: Charla Galindo RN Position: [facility] RN Member Role: Primary Care Nurse Name: Julia Sumner Position: [facility] RN Member Role: Primary Care Nurse Name: Bessie Gomes RN Position: [facility] RN Member Role: Primary Care Nurse Name: Ashlie Goodman RN Position: [facility] RN Member Role: Primary Care Nurse Name: Danielle Griffith RN Position: S RN Member Role: Primary Care Nurse Name: Aneta Conte RN Position: [facility] RN Member Role: Primary Care Nurse Name: Carmelina Dunn LPN Position: [facility] RN Member Role: Primary Care Nurse Name: Janay Judd RN Position: [facility] RN Member Role: Primary Care Nurse Name: Brit Gracia RN Position: [facility] RN Member Role: Primary Care Nurse Name: Karma Miller RN Position: [facility] RN Member Role: Primary Care Nurse Name: Michael Shelley MD Position: [facility] ED Medicine MD Address: Address: [address] [place] [id number]- Name: Lorri Bain Position: [facility] ED TA [facility] Member Role: ED Associate Name: Bonnie Carlin RN Position: [facility] ED RN W/OE and Tasks Member Role: Patient Care Provider Name: Dawit Trammell DO Position: [facility] Resident Member Role: Resident Address: Address: [address] [place] [id number]- Care Team Related Persons Name: ELIZABETH REES Address: home [address] [place] [address] Name: MELO KUMAR Address: home [address] [place] [address] Name: ROLAND WILLIAM Address: home [address] [address]
== END 2023-09-16 12:02 | disposition home or self-care (01) ==
PROVIDERS: PCP Internal Medicine; Visit Provider Nurse Practitioner Family
DX: B37.2 Candidiasis of skin and nail (principal)
CPT/HCPCS: 99213

== ENCOUNTER 2023-10-04 10:02 | Outpatient (AMB) | payer MEDICARE, MEDICAID, SELFPAY ==
[2023-10-04 10:06] VITALS: BP 118/72; PULSE 66; TEMP 36.6; O2SAT 97
--- NOTE | 2023-10-04 10:06 | AM.OFFWIN_ITS ---
Intake Vital Signs 10/04/23 10:06 Height 5 ft BMI Reason not done Patient refused/unable BP 118/72 Blood Pressure Location Rt brachial Position Sitting Pulse 66 Pulse Source Pulse Oximeter Temp 97.9 F Temp Source Oral Pulse Oximetry (%) 97 Intake Visit Reasons: EP ??? UTI irritation between thighs Intake Note: pt is here for possible uti, irritation between thighs Patient Tobacco Use Status: Never used Tobacco Allergies silver [From TEGADERM AG MESH] Allergy (Unknown, Verified 10/04/23 10:07) RASH transparent dressing Allergy (Unknown, Verified 10/04/23 10:07) skin irritation sensitivity haloperidol [From HALDOL] Adverse Reaction (Intermediate, Verified 10/04/23 10:07) UNKNOWN Tegaderm CHG dressing: Allergy (Unknown, Uncoded 09/16/23 11:10) skin irritation Haldol Adverse Reaction (Unknown, Uncoded 09/16/23 11:10) paradoxical effect Do you need a note to return to daycare/school/sports/work: No HPI HPI Comments History of Present Illness Details Patient is a 28-year-old female complaining of 3 days of urinating on herself. She states that she does have some itchiness after on her legs but feels like she has itchiness inside her vagina. She is also complaining of white chunky discharge. She denies any fevers, back pain, history of kidney stones or diabetes. Patient is here with her senior living workers today, they are requesting that we stopped the Benadryl p.r.n. [facility] Medical History Transaminitis KARLA (obstructive sleep apnea) Somnolence, daytime Morbid obesity Pain of left lower extremity Swelling of left lower extremity Hypertension, essential Mood disorder Developmental delay, mild Vitamin D deficiency Anemia Iron deficiency PTSD (post-traumatic stress disorder) Anxiety Autistic disorder Chronic constipation Acute constipation Colitis Crohn's disease Prader-Willi syndrome Pica in adults Surgical History History of abdominal surgery History of throat surgery Family History Father No problems noted. Mother No problems noted. Social History Household Members: Other Housing: Other Do you presently have visiting nurse or other home services: Yes Alcohol intake: never Comment: No complaints of headache Patient Tobacco Use Status: Never used Tobacco e-Cigarette/Vaping Use: Never Used Second Hand Smoke Exposure: No service: No Current occupational status: disabled Cognitive needs: No Hearing needs: No Vision needs: Yes Review of Systems Const All systems reviewed & are unremarkable except as noted in HPI and below Physical Exam Vital Signs: Last Vital Signs Temp 97.9 F 10/04/23 10:06 Pulse 66 10/04/23 10:06 BP 118/72 10/04/23 10:06 Pulse Ox 97 10/04/23 10:06 Const General: cooperative, healthy appearing, comfortable, no acute distress and well developed Orientation/consciousness: patient oriented x3 Limitations: no limitations HEENT Head: Yes normal to inspection Eyes General: appearance normal, both eyes and all related structures Neck Neck: Yes normal visual inspection and Yes full ROM Resp Effort & Inspection: normal respiratory effort and able to speak in complete sentences Skin General skin exam: no rashes or lesions noted Neuro General: patient oriented x3 Extrem General: Yes normal to inspection Assessment & Plan Assessment & Plan (1) Yeast infection of the vagina: Code(s): B37.31 - Acute candidiasis of vulva and vagina Plan: No glucose in her urine, no signs of infection in her urine, will treat for yeast infection and recommended follow up with PCP if no relief in symptoms. Plan See above Medications: New fluconazole may repeat second dose 72 hrs after first dose if symptoms persist 150 mg PO Q3D 2 doses 2 tabs 0RF Discontinued diphenhydramine HCl (Benadryl) Discontinued Reason: Doctor's Order 25 mg PO TID PRN 20 caps 0RF allergy symptoms B37.2 - Candidiasis of skin and nail Coding Level of Care Code Est Pt Level 3 (93833) Diagnoses Yeast infection of the vagina B37.31
== END 2023-10-04 11:11 | disposition home or self-care (01) ==
PROVIDERS: PCP Internal Medicine; Visit Provider Physician Assistant
DX: B37.31 Acute candidiasis of vulva and vagina (principal)
CPT/HCPCS: 81003; 99213

== ENCOUNTER 2023-10-19 08:45 | Outpatient (REF) | payer MEDICARE, MEDICAID, SELFPAY ==
[2023-10-28 15:39] LABS: Calprotectin, Fecal 85 mcg/g
== END 2023-10-19 08:46 | disposition home or self-care (01) ==
LOC: HO.HMGCLNP 08:45
PROVIDERS: PCP Internal Medicine; Visit Provider Nurse Practitioner Family
DX: K50.10 Crohn's disease of large intestine without complications (principal); I10 Essential (primary) hypertension; Q87.11 Prader-Willi syndrome; E61.1 Iron deficiency; K59.09 Other constipation; D64.9 Anemia, unspecified; E55.9 Vitamin D deficiency, unspecified; K21.9 Gastro-esophageal reflux disease without esophagitis; R79.89 Other specified abnormal findings of blood chemistry; E66.01 Morbid (severe) obesity due to excess calories; G47.33 Obstructive sleep apnea (adult) (pediatric); F33.1 Major depressive disorder, recurrent, moderate; I73.9 Peripheral vascular disease, unspecified; F99 Mental disorder, not otherwise specified; R15.9 Full incontinence of feces; Z91.09 Other allergy status, other than to drugs and biological substances
CPT/HCPCS: 36415; 80299; 81001; 82542; 83721; 83993; 87086; 87147

== ENCOUNTER 2023-10-19 13:27 | Outpatient (REF) | payer MEDICARE, MEDICAID, SELFPAY ==
[2023-10-21 11:24] LABS: LDL Cholesterol Direct 71 mg/dL (<100)
[2023-10-25 21:23] LABS: 6-MMPN 5053 (<5700); 6-TGN 280 (235-400)
== END 2023-10-19 13:28 | disposition home or self-care (01) ==
LOC: HO.HMGCLDS 13:27
PROVIDERS: Nurse Practitioner Family; PCP Internal Medicine; Visit Provider Internal Medicine
DX: Z13.89 Encounter for screening for other disorder (principal)
CPT/HCPCS: 36415; 80299; 82542; 83721

== ENCOUNTER 2023-10-19 17:20 | Outpatient (REF) | payer MEDICARE, MEDICAID, SELFPAY ==
[2023-10-20 14:05] LABS: Appearance Urine Clear; Color Urine Yellow; Glucose Urine UA Negative (Negative); Leukocyte Esterase Urine Trace (Negative); Nitrite Urine Negative (Negative); Specific Gravity - Urine 1.025 (1.005-1.025); UMIC TRIGGER UACC YES; Urine Blood Negative (Negative); Urine Ketones Trace mg/dL (Negative); Urine Protein 30 (1+) mg/dL (Neg-Trace)
[2023-10-20 14:11] LABS: Bacteria Urine None Seen (None Seen); Hyaline Casts Urine 0-2 /LPF (0-2); RBC Urine 0-2 /HPF (0-2); UACC Culture Trigger YES
== END 2023-10-19 17:21 | disposition home or self-care (01) ==
LOC: HO.HMGCLNP 17:20
PROVIDERS: PCP Internal Medicine; Visit Provider Internal Medicine
DX: Z13.89 Encounter for screening for other disorder (principal)
CPT/HCPCS: 81001; 81003; 87086; 87147

== ENCOUNTER 2023-11-02 13:39 | Outpatient (AMB) | payer MEDICARE, SELFPAY ==
--- NOTE | 2023-11-02 14:31 | AM.OFFVISNUR ---
Intake Visit Reasons: Stelara Injection Allergies silver [From TEGADERM AG MESH] Allergy (Unknown, Verified 10/07/23 08:57) RASH transparent dressing Allergy (Unknown, Verified 10/07/23 08:57) skin irritation sensitivity haloperidol [From HALDOL] Adverse Reaction (Intermediate, Verified 10/07/23 08:57) UNKNOWN Tegaderm CHG dressing: Allergy (Unknown, Uncoded 09/16/23 11:10) skin irritation Haldol Adverse Reaction (Unknown, Uncoded 09/16/23 11:10) paradoxical effect Nursing Note Patient come with 2 workers from longterm here for nurse visit - Stelara injection 90mg q8wks- last dose 09/08/23. verified patient and . injection given rt arm - tolerated well. Office Meds Stelara 90 mg/mL subcutaneous syringe Performing Provider: ANGELITO Del Rio Performing Location: [facility] [place] [facility] Administered by: Starr Herman RN on 11/02/23 14:20 Dose Route Admin Location Dispensed Lot Number Expiration Date [facility] Resistor Testing Machine Operator 90 mg subcut rt arm 1 mL [id number] 03/29/26 73574-895-77 Up & Net Assessment & Plan Assessment & Plan Orders: Orders AMB Ustekinumab Injection Today K50.10 - Crohn's disease of large intestine without complications Medications: New Stelara (ustekinumab) 90 mg subcut ONCE 1 mL 0RF NS K50.10 - Crohn's disease of large intestine without complications
== END 2023-11-02 14:27 | disposition home or self-care (01) ==
PROVIDERS: PCP Internal Medicine; Visit Provider Nurse Practitioner Family
DX: K50.10 Crohn's disease of large intestine without complications (principal)

== ENCOUNTER → 2023-11-02 13:39 | Outpatient (BNVA) | payer MEDICARE, SELFPAY | PROVIDERS: Visit Provider Nurse Practitioner Family | DX: K50.10 Crohn's disease of large intestine without complications (principal) | CPT/HCPCS: 96372; J3357 ==

== ENCOUNTER 2023-11-16 10:43 | Outpatient (REF) | payer MEDICARE, SELFPAY ==
[2023-11-17 03:21] LABS: CT PCR NOT DETECTED (Not Detect.); NG PCR NOT DETECTED (Not Detect.)
[2023-11-17 10:32] LABS: Bacterial Vaginosis PCR POSITIVE (Negative); Candida Group PCR NOT DETECTED (Not Detect); Candida glab krusei PCR NOT DETECTED (Not Detect); Trichomonas vaginalis PCR NOT DETECTED (Not Detect)
== END 2023-11-16 10:44 | disposition home or self-care (01) ==
LOC: HO.LAB 10:43
PROVIDERS: PCP Internal Medicine; Visit Provider Advanced Practice Midwife
DX: Z01.419 Encounter for gynecological examination (general) (routine) without abnormal findings (principal); Z20.2 Contact with and (suspected) exposure to infections with a predominantly sexual mode of transmission; N89.8 Other specified noninflammatory disorders of vagina
CPT/HCPCS: 0352U; 36415; 87491; 87591; 87625; 88175; G0101; Q0091

== ENCOUNTER 2023-11-16 10:43 | Outpatient (AMB) | payer MEDICARE, SELFPAY ==
[2023-11-16 11:22] VITALS: BP 118/70; BMI 40.8
--- NOTE | 2023-11-16 11:22 | A.OFFVIS_ITS ---
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 Cooker Tender Required: No Information Interpreted: clinical only Software Engineer Sales: Software Engineer Sales Present Allergies silver [From TEGADERM AG MESH] Allergy (Unknown, Verified 11/16/23 11:23) RASH transparent dressing Allergy (Unknown, Verified 11/16/23 11:23) skin irritation sensitivity haloperidol [From HALDOL] Adverse Reaction (Intermediate, Verified 11/16/23 11:23) UNKNOWN Tegaderm CHG dressing: Allergy (Unknown, Uncoded 11/16/23 11:23) skin irritation Haldol Adverse Reaction (Unknown, Uncoded 11/16/23 11:23) paradoxical effect Medication List - Last Reconciled 11/16/23 by Elizabeth Castle CNM acetaminophen 325 mg PO BID PRN 30 days atenolol 25 mg PO .q 8 am 90 days calcium citrate-vitamin D3 315 mg-5 mcg (200 unit) (Calcium Citrate + D) 1 tab PO QAM 90 days cetirizine (Zyrtec) 10 mg PO .q 8 am 90 days cholecalciferol (vitamin D3) (Vitamin D3) 50 mcg PO .q 8 am 90 days famotidine 40 mg PO BEDTIME fluconazole 150 mg PO Q3D 2 doses fluoxetine 20 mg PO DAILY fluticasone propionate 50 mcg/actuation 1 spray intranasal BEDTIME 30 days folic acid 1 mg PO QAM 90 days multivitamin 1 tab PO DAILY naltrexone 50 mg PO DAILY olanzapine (Zyprexa) 5 mg PO BEDTIME omega 2-qjb-vde-fish oil 300-1,000 mg 1 cap orally in am, noon and pm; 90 days rosuvastatin 5 mg PO .qhs trazodone 100 mg PO BEDTIME ustekinumab (Stelara) 90 mg subcut Q8W Is last menstrual period known: No HPI HPI PRINTING SPECIALIST annual exam: Details: Patient is here today accompanied by 2 staff members for a flyer repairer annual exam she has been seen by this provider in past but my recommendations and assessments were previously rejected by some staff members and so it was suggested that the patient be reappointed with other providers in future however she is here today. Review of the record reveals that she has never successfully had a Pap smear. She has a chronic issue with vaginal itching and she was seen somewhat recently in urgent care and was given Diflucan and patient reports today that the itching comes and goes. She is assisted with all ADLs with staff and there are issues with PICA and touching and eating of paper so paper has been removed from her close environment for the duration of the exam. The patient does consent to an exam today. [facility] Medical History Transaminitis KARLA (obstructive sleep apnea) Somnolence, daytime Morbid obesity Pain of left lower extremity Swelling of left lower extremity Hypertension, essential Mood disorder Developmental delay, mild Vitamin D deficiency Anemia Iron deficiency PTSD (post-traumatic stress disorder) Anxiety Autistic disorder Chronic constipation Acute constipation Colitis Crohn's disease Prader-Willi syndrome Pica in adults Surgical History History of abdominal surgery History of throat surgery Family History Father No problems noted. Mother No problems noted. Social History Household Members: Other Housing: Other Do you presently have visiting nurse or other home services: Yes Alcohol intake: never Comment: No complaints of headache Patient Tobacco Use Status: Never used Tobacco e-Cigarette/Vaping Use: Never Used Second Hand Smoke Exposure: No service: No Current occupational status: disabled Cognitive needs: No Hearing needs: No Vision needs: Yes Female Reproductive History Menstrual Age of Menarche: 11 Duration of menses: other control method: none Total pregnancies: 0 History of abnormal pap smear: No (no previous pap) Physical Exam Vital Signs: Last Vital Signs BP 118/70 11/16/23 11:22 BMI result Body Mass Index 40.8 Const General: other Limitations: behavioral limitations, physical limitations and other limitations Chest Breast/axilla inspection: normal inspection of the breasts and normal inspection of the axillae Breast/axilla palpation: normal palpation of the breasts and normal palpation of the axillae Other: Patient has marked edema all over body but especially in vulva and lower extremities. There is a cluster blister like lesions that are encrusted at mons pubis about the size of a quarter that have a ash yellow appearance consistent with impetigo. Gentle speculum exam was able to be performed today. Vagina is pink and moist nulliparous pink cervix visualized and Pap smear was able to be obtained for the 1st time cultures were taken as well. Gentle bimanual was done though not much anatomy could be appreciated attempted to instruct patient on Kegel but it was difficult for her to understand but there was some control. There was no general inflammation that would be consistent with yeast today there was the encrusted oozy area of the surface of the mons pubis. That most likely is a result of bacterial superinfection from scratching. Female genitals images: 2 1. Encrusted ash cluster of lesions consistent with impetigo or other infectious process most likely from scratching. Note patient's nails were distributor cleaner than previously witnessed in past visits over the years. Patient is severe compulsive scratching seemed be under better control and there was PICA witnessed at this time. Assessment & Plan Assessment & Plan (1) Lymphedema: Code(s): I89.0 - Lymphedema, not elsewhere classified Category: Medical (2) Cervical cancer screening: Code(s): Z12.4 - Encounter for screening for malignant neoplasm of cervix Category: Medical (3) Morbid obesity: Comment: Patient has underlying developmental disorder, She is morbidly obese, with typical round face and narrow oropharynx, Mallampati class 4. Difficult for her to lose weight. Code(s): E66.01 - Morbid (severe) obesity due to excess calories Category: Medical (4) Prader-Willi syndrome: Comment: THIS IS A CONGENITAL, DISORDER, AND CAUSE OF HER MORBID OBESITY, WITH DEVELOPMENTAL DELAY / INTELLECTUAL DISABILITY Code(s): Q87.11 - Prader-Willi syndrome Category: Medical (5) Women's annual routine gynecological examination: Code(s): Z01.419 - Encounter for gynecological examination (general) (routine) without abnormal findings Category: Medical Plan Pap smear was able to be done for the 1st time by this provider. Patient was more relaxed during this visit and exhibited less compulsive scratching and PICA though paper temptation were moved from her reach by her carers. Discussed hygiene patient is partial to the highly perfumed soaps and body washes encouraged to rinse them very well with clear water encouraged to engage in more dental hygiene encouraged to continue to do as well as she is doing scratching less which is the cause of much of her issue there was no obvious issue today with yeast but the patient had recently been prescribed Diflucan which most likely worked there is a superficial area of what appears to be impetigo at the surface of her mons pubis about a quarter size. Patient encouraged not to scratch her nails were in better condition as well and she engaged in hand washing at the sink as opposed to previous encounters. Patient appeared overall more relaxed today and able to tolerate the exam though it was slightly challenging for her but she was able to tolerate it with the support of her 2 staff carers. Coding Level of Care Code Est Pt Prev Care [id number]) Diagnoses Lymphedema I89.0 Cervical cancer screening Z12.4 Morbid obesity E66.01 Prader-Willi syndrome Q87.11 Women's annual routine gynecological examination Z01.419
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
== END 2023-11-16 12:36 | disposition home or self-care (01) ==
LOC: HO.HWSM 10:43
PROVIDERS: PCP Internal Medicine; Visit Provider Advanced Practice Midwife
DX: Z01.419 Encounter for gynecological examination (general) (routine) without abnormal findings (principal)
CPT/HCPCS: G0101; Q0091

== ENCOUNTER 2023-11-22 11:11 | Outpatient (AMB) | payer MEDICARE, SELFPAY ==
[2023-11-22 11:19] VITALS: BP 110/82; PULSE 55; O2SAT 95; BMI 40.0
--- NOTE | 2023-11-22 11:19 | A.OFFVIS_ITS ---
Vital Signs 11/22/23 11:19 Height 5 ft Weight 205 lb 0.478 oz BMI 40.0 BP 110/82 Blood Pressure Location Lt brachial Position Sitting Pulse 55 Pulse Source Pulse Oximeter Pulse Oximetry (%) 95 Oxygen Delivery Method Room Air Intake Visit Reasons: Obstructive sleep apnea follow-up Intake Note: pt is here for follow up and states she sleeping okay at night, take naps Rn Orthopaedic Required: No Allergies silver [From TEGADERM AG MESH] Allergy (Unknown, Verified 11/22/23 11:34) RASH transparent dressing Allergy (Unknown, Verified 11/22/23 11:34) skin irritation sensitivity haloperidol [From HALDOL] Adverse Reaction (Intermediate, Verified 11/22/23 11:34) UNKNOWN Tegaderm CHG dressing: Allergy (Unknown, Uncoded 11/22/23 11:34) skin irritation Haldol Adverse Reaction (Unknown, Uncoded 11/22/23 11:34) paradoxical effect Medication List - Last Reconciled 11/22/23 by Paola Grove MD acetaminophen 325 mg PO BID PRN 30 days atenolol 25 mg PO .q 8 am 90 days calcium citrate-vitamin D3 315 mg-5 mcg (200 unit) (Calcium Citrate + D) 1 tab PO QAM 90 days cetirizine (Zyrtec) 10 mg PO .q 8 am 90 days cholecalciferol (vitamin D3) (Vitamin D3) 50 mcg PO .q 8 am 90 days famotidine 40 mg PO BEDTIME fluconazole 150 mg PO Q3D 2 doses fluoxetine 20 mg PO DAILY fluticasone propionate 50 mcg/actuation 1 spray intranasal BEDTIME 30 days folic acid 1 mg PO QAM 90 days multivitamin 1 tab PO DAILY naltrexone 50 mg PO DAILY olanzapine (Zyprexa) 5 mg PO BEDTIME omega 2-mfq-dqj-fish oil 300-1,000 mg 1 cap orally in am, noon and pm; 90 days rosuvastatin 5 mg PO .qhs trazodone 100 mg PO BEDTIME ustekinumab (Stelara) 90 mg subcut Q8W Do you need a note to return to daycare/school/sports/work: No HPI HPI Obstructive sleep apnea follow-up: Details: NALDO IS 28 YEARS OLD FEMALE , A CASE OF PRADER-WILLI SYNDROME, WITH MORBID OBESITY AND DEVELOPMENTAL DISORDER. SHE HAS H/O OBSTRUCTIVE SLEEP APNEA WITH NOCTURNAL HYPOXEMIA. SHE WAS STARTED ON BIPAP. . AND OXYGEN SUPPLEMENTATION AT NIGHT UNFORTUNATELY DUE TO HER PSYCHIATRIC DISORDER, SHE BITES ON THE MASK WELL ON OXYGEN AND CANNOT USE EITHER ONE . SHE IS TRYING TO SLEEP IN LATERAL POSITION. ACCORDING TO THE STAFF, SHE SLEEPS WELL, AND HAS ONLY MINIMAL DAYTIME SOMNOLENCE, DOES HAVE A TENDENCY TO TAKE A NAP IN THE AFTERNOON. WEIGHT DOWN BY ANOTHER 10 POUNDS IN LAST 6 MONTHS . [facility] Medical History Transaminitis KARLA (obstructive sleep apnea) Somnolence, daytime Morbid obesity Pain of left lower extremity Swelling of left lower extremity Hypertension, essential Mood disorder Developmental delay, mild Vitamin D deficiency Anemia Iron deficiency PTSD (post-traumatic stress disorder) Anxiety Autistic disorder Chronic constipation Acute constipation Colitis Crohn's disease Prader-Willi syndrome P[place] in adults Surgical History History of abdominal surgery History of throat surgery Family History Father No problems noted. Mother No problems noted. Social History Household Members: Other Housing: Other Do you presently have visiting nurse or other home services: Yes Alcohol intake: never Comment: No complaints of headache Patient Tobacco Use Status: Never used Tobacco e-Cigarette/Vaping Use: Never Used Second Hand Smoke Exposure: No service: No Current occupational status: disabled Cognitive needs: No Hearing needs: No Vision needs: Yes Female Reproductive History Menstrual Age of Menarche: 11 Review of Systems Const All systems reviewed & are unremarkable except as noted in HPI and below Reports snoring Eyes Reports no additional complaints ENT Denies epistaxis, Reports nasal congestion (Mild intermittent) and Denies nasal discharge Card Denies chest pain, Denies irregular heart rhythm and Denies leg edema Resp Denies cough, Reports snoring and Denies wheezing GI Reports constipation, Reports heartburn (GERD symptoms being treated,) and Reports other (History of Crohn's disease) Reports no additional complaints Musc Reports no additional complaints Skin/Breast Reports system reviewed and no additional complaints, except as documented Neuro Reports no additional complaints Psych Reports mood swings and Reports other (prader-Willi Syndrome ) Endo Reports no additional complaints Lyndon/Lymph Reports other (h/o anemia ) Aller/Immun Denies wheezing Physical Exam Vital Signs: Last Vital Signs Pulse 55 11/22/23 11:19 BP 110/82 11/22/23 11:19 Pulse Ox 95 11/22/23 11:19 Oxygen Delivery Method Room Air 11/22/23 11:19 BMI result Body Mass Index 40.0 Const Other: This patient is grossly obese with a round face General: comfortable, no acute distress, alert and awake Orientation/consciousness: patient oriented x3 HEENT Head: Yes normal to inspection General nose exam: No nasal polyps present and No nasal discharge present Face and sinus: Yes sinuses nontender Mouth: oropharynx abnormals (Oropharynx is narrow, Mallampati class 4) Throat: Yes posterior oropharynx normal Eyes General: appearance normal, both eyes and all related structures Neck Neck: Yes normal visual inspection, Yes no lymphadenopathy, Yes trachea midline, Yes no JVD and Yes other (Neck size 15-1/2 inch) Thyroid: Thyroid normal Chest Chest palpation & inspection: normal inspection of the chest, normal palpation of entire chest wall and no tenderness Resp Effort & Inspection: normal respiratory effort and no cough Auscultation: clear to auscultation bilaterally, no crackles and no wheezes Cardio Palpation: normal PMI Rate: regular rate Rhythm: regular rhythm Heart sounds: no gallops and no murmurs Peripheral pulses: Peripheral pulses 2+ throughout GI Palpation (GI): Soft to palpation, nontender, No hepatosplenomegaly present, no masses and Other GI palpation findings present (Abdomen is moderately obese and protuberant) Auscultation: normal bowel sounds Back/Spine/Pelvis Thoracic/Lumbar Spine: thoracic and lumbar spine normal to inspection Skin General skin exam: no rashes or lesions noted Neuro General: patient oriented x3 and no focal motor deficits Cranial nerves: Yes CN's II-XII intact bilaterally Extrem General: Yes normal to inspection, Yes no clubbing, cyanosis or edema and Yes no calf tenderness Psych Appearance: grossly normal and well kempt Speech and movement: Normal speech and movement present Assessment & Plan Assessment & Plan (1) Morbid obesity: Comment: Patient has underlying developmental disorder, She is morbidly obese, with typical round face and narrow oropharynx, Mallampati class 4. Difficult for her to lose weight. Code(s): E66.01 - Morbid (severe) obesity due to excess calories Category: Medical Plan: TALKED TO THE STAFF MEMBERS AND ADVISE THAT, THIS SHOULD ENCOURAGE NALDO TO EAT LOW CARB TYPE OF DIET . (2) KARLA (obstructive sleep apnea): Comment: SHE IS A CONFIRMED CASE OF SEVERE OBSTRUCTIVE SLEEP APNEA. CPAP TITRATION STUDY DETERMINED THAT SHE NEEDS BY BI-LEVEL CPAP WITH PRESSURE SETTING 20/16 CM. SHE IS NOT ABLE TO USE THE CPAP SHE BITES ON THE MASK AND EATS THE PLASTIC CHIPS, SIMILARLY SHE ALSO BITES ON THE NASAL CANNULA AND CANNOT USE THE OXYGEN. UNDER THE CIRCUMSTANCES THERE IS NO OTHER PRACTICAL SOLUTION AT THIS TIME. EVANTUALLY AT SOME POINT SHE MAY NEED PERMANENT TRACHEOSTOMY FOR TREATMENT OF HER KARLA. HER GRADUAL WEIGHT LOSS EVEN THOUGH IT IS IN HIS SMALL AMOUNT IS QUITE ENCOURAGING. Code(s): G47.33 - Obstructive sleep apnea (adult) (pediatric) Category: Medical Plan: I TOLD THE STAFF THAT LONG SHE KEEPS O.N LOSING WEIGHT SHE WILL DO OKAY. I DO NOT HAVE TO SEE HER, REGULARLY , BUT WILL BE GLAD TO SEE HER NEEDED. (3) Prader-Willi syndrome: Comment: THIS IS A CONGENITAL, DISORDER, AND CAUSE OF HER MORBID OBESITY, WITH DEVELOPMENTAL DELAY / INTELLECTUAL DISABILITY Code(s): Q87.11 - Prader-Willi syndrome Category: Medical Plan: ABOVE Coding Level of Care Code Est Pt Level 3 (56051) Diagnoses Morbid obesity E66.01 KARLA (obstructive sleep apnea) G47.33 Prader-Willi syndrome Q87.11
== END 2023-11-22 11:40 | disposition home or self-care (01) ==
PROVIDERS: PCP Internal Medicine; Visit Provider Internal Medicine
DX: E66.01 Morbid (severe) obesity due to excess calories (principal); G47.33 Obstructive sleep apnea (adult) (pediatric); Q87.11 Prader-Willi syndrome
CPT/HCPCS: 99213

== ENCOUNTER → 2023-11-22 11:11 | Outpatient (BNVA) | payer MEDICARE, MEDICAID, SELFPAY | PROVIDERS: PCP Internal Medicine; Visit Provider Internal Medicine | DX: G47.33 Obstructive sleep apnea (adult) (pediatric) (principal); E66.01 Morbid (severe) obesity due to excess calories; Q87.11 Prader-Willi syndrome; Z68.41 Body mass index [BMI] 40.0-44.9, adult | CPT/HCPCS: 99212 ==

== ENCOUNTER 2023-12-14 14:33 | Outpatient (AMB) | payer MEDICARE, SELFPAY ==
--- NOTE | 2023-12-14 14:38 | MHC.PC.OV ---
Vital Signs 12/14/23 14:39 Height 5 ft Weight 203 lb 6 oz BMI 39.7 BP 112/78 Blood Pressure Location Lt brachial Position Sitting Pulse 51 Pulse Source Pulse Oximeter Pulse Oximetry (%) 90 L Oxygen Delivery Method Room Air Intake Visit Reasons: Pre Op Allergies silver [From TEGADERM AG MESH] Allergy (Unknown, Verified 12/14/23 14:39) RASH transparent dressing Allergy (Unknown, Verified 12/14/23 14:39) skin irritation sensitivity haloperidol [From HALDOL] Adverse Reaction (Intermediate, Verified 12/14/23 14:39) UNKNOWN Tegaderm CHG dressing: Allergy (Unknown, Uncoded 11/22/23 11:34) skin irritation Haldol Adverse Reaction (Unknown, Uncoded 11/22/23 11:34) paradoxical effect Medication List - Last Reconciled 12/14/23 by Galen Xie MD acetaminophen 325 mg PO BID PRN 30 days atenolol 25 mg PO .q 8 am 90 days calcium citrate-vitamin D3 315 mg-5 mcg (200 unit) (Calcium Citrate + D) 1 tab PO QAM 90 days cetirizine (Zyrtec) 10 mg PO .q 8 am 90 days cholecalciferol (vitamin D3) (Vitamin D3) 50 mcg PO .q 8 am 90 days famotidine 40 mg PO BEDTIME fluconazole 150 mg PO Q3D 2 doses fluoxetine 20 mg PO DAILY fluticasone propionate 50 mcg/actuation 1 spray intranasal BEDTIME 30 days folic acid 1 mg PO QAM 90 days multivitamin 1 tab PO DAILY naltrexone 50 mg PO DAILY olanzapine (Zyprexa) 5 mg PO BEDTIME omega 8-suq-zvi-fish oil 300-1,000 mg 1 cap orally in am, noon and pm; 90 days rosuvastatin 5 mg PO .qhs trazodone 100 mg PO BEDTIME ustekinumab (Stelara) 90 mg subcut Q8W Tobacco use date assessed: 12/14/23 Dental Screening Dental Screen Date: 12/14/23 Did you have a dental visit in the last 12 months?: Yes Did you have a dental problem in the last 6 months where you did not have access to dental care?: Yes Was dental information given to patient?: No HPI Pre Op HPI Details Patient is 28-year-old female came in today for preop clearance for wisdom tooth surgery with staff members She has a history of Prader-Willi syndrome, autism, morbid obesity, peripheral vascular disease, severe obstructive sleep apnea but not able to use the CPAP machine Lymphedema, major depression, chronic GERD, Crohn's disease, hypertension. However patient does not have a date of surgery at She is due for labs I see that her heart rate has been running low in 50s I am changing her atenolol to losartan 25 mg Patient is to return again in 2 weeks for re-evaluation [facility]LY [facility] Medical History Transaminitis KARLA (obstructive sleep apnea) Somnolence, daytime Morbid obesity Pain of left lower extremity Swelling of left lower extremity Hypertension, essential Mood disorder Developmental delay, mild Vitamin D deficiency Anemia Iron deficiency PTSD (post-traumatic stress disorder) Anxiety Autistic disorder Chronic constipation Acute constipation Colitis Crohn's disease Prader-Willi syndrome Pica in adults Surgical History History of abdominal surgery History of throat surgery Family History Father No problems noted. Mother No problems noted. Social History Household Members: Other Housing: Other Do you presently have visiting nurse or other home services: Yes Alcohol intake: never Comment: No complaints of headache Patient Tobacco Use Status: Never used Tobacco e-Cigarette/Vaping Use: Never Used Second Hand Smoke Exposure: No service: No Current occupational status: disabled Cognitive needs: No Hearing needs: No Vision needs: Yes Female Reproductive History Menstrual Age of Menarche: 11 Questionnaire PHQ-9 Over the last 2 weeks, how often have you been bothered by any of the following problems? 1. Little interest or pleasure in doing things: not at all 2. Feeling down, depressed, or hopeless: not at all 3. Trouble falling or staying asleep, or sleeping too much: not at all 4. Feeling tired or having little energy: nearly every day 5. Poor appetite or overeating: not at all 6. Feeling bad about yourself - or that you are a failure or have let yourself or your family down: not at all 7. Trouble concentrating on things, such as reading the newspaper or watching television: not at all 8. Moving or speaking so slowly that other people could have noticed. Or the opposite - being so fidgety or restless that you have been moving around a lot more than usual: not at all 9. Thoughts that you would be better off or of hurting yourself in some way: not at all Total score: 3 Depression Screening Interpretation: Negative Depression Screening Done: Yes [id number] - PHQ-9 Billing: Yes Source: Developed by Drs. Lucian Garcia, Claudia Diaz, Edi Moore and colleagues, with an educational brian from [employer]. Thrive Questionnaire Date Thrive assessed: 04/21/23 I am a: Parent/Caregiver What is your living situation today?: I have a steady place to live Within the past 12 months, did the food you bought not last and you didn't have the money to get more?: Never true Within the past 12 months, did you worry whether your food would run out before you got money to buy more?: Never true Do you have trouble paying for medicines?: No Do you have trouble getting transportation to medical appointments?: No Do you have trouble paying your heating and electricity bill?: No Do you have trouble taking care of your child, family member or friend?: No Do you have trouble with day-to-day activities such as bathing, preparing meals, shopping, managing finances, etc.?: No Are you interested in more education?: No Please select the resources that you would like help with: None Currently or been in a relationship where the following occur: No concerns reported THRIVE Score: 0 AUDIT C Alcohol Use Questionnaire (AUDIT-C) 1. How often do you have a drink containing alcohol?: Never Total Score: 0 BEVERLEY-7 AMB Questionnaire BEVERLEY-7 Date BEVERLEY - 7 assessed: 04/21/23 Feeling nervous, anxious, or on edge: 0 = Not at all Not being able to stop or control worryin = Not at all Worrying too much about different things: 0 = Not at all Trouble relaxin = Not at all Being so restless that it is hard to sit still: 0 = Not at all Becoming easily annoyed or irritable: 0 = Not at all Feeling afraid as if something awful might happen: 0 = Not at all Total BEVERLEY-7 score (0-4 normal; 5-9 mild; 10-14 moderate; 15-21 severe): 0 Source: Developed by Drs. Lucian Garcia, Claudia Diaz, Edi Moore and colleagues, with an educational brian from [employer]. Review of Systems Const Denies chills and Denies fever(s) ENT Denies epistaxis and Denies nasal discharge Card Denies chest pain Resp Denies chest congestion, Denies cough and Denies hemoptysis GI Denies diarrhea and Denies nausea Skin/Breast Denies rash Neuro Reports no additional complaints Psych Reports no additional complaints Endo Reports no additional complaints Physical exam (Primary Care) Vital Signs: Last Vital Signs Pulse 51 12/14/23 14:39 BP 112/78 12/14/23 14:39 Pulse Ox 90 L 12/14/23 14:39 Oxygen Delivery Method Room Air 12/14/23 14:39 BMI result Body Mass Index 39.7 Tobacco/Smoking Status: Tobacco use Status Tobacco use date assessed 12/14/23 12/14/23 14:42 Patient Tobacco Use Status Never used Tobacco 12/14/23 14:42 e-Cigarette/Vaping Use Never Used 12/14/23 14:42 PHQ-9: PHQ-9 Score PHQ-9: Total score 3 12/14/23 15:04 Depression Screening Interpretation: Negative Thrive Assessment: Date of Thrive Assessment Date Thrive assessed 04/21/23 12/14/23 14:42 Currently or been in a relationship where the following occur: No concerns reported Const General: cooperative, comfortable and no acute distress HENMS Head: Yes normocephalic Eyes General: appearance normal, both eyes and all related structures Neck Neck: Yes supple Resp Effort & Inspection: normal respiratory effort, no cough and no stridor Cardio Rhythm: regular rhythm Heart sounds: S1 normal heart sound present and S2 normal heart sound present Skin General skin exam: turgor normal Neuro General: tone normal and moves all extremities Assessment and Plan Assessment & Plan (1) Pre-op evaluation: Code(s): Z01.818 - Encounter for other preprocedural examination (2) Hypertension, essential: Code(s): I10 - Essential (primary) hypertension (3) Prader-Willi syndrome: Comment: Patient has developmental disorder secondary to Prader Willi Syndrome Code(s): Q87.11 - Prader-Willi syndrome (4) Crohn's disease: Code(s): K50.90 - Crohn's disease, unspecified, without complications Qualifiers: Digestive disease complication type: without complication Gastrointestinal tract location: large intestine Qualified Code(s): K50.10 - Crohn's disease of large intestine without complications (5) Chronic GERD: Code(s): K21.9 - Gastro-esophageal reflux disease without esophagitis (6) LFT elevation: Code(s): R79.89 - Other specified abnormal findings of blood chemistry (7) Psychiatric illness: Code(s): F99 - Mental disorder, not otherwise specified (8) Morbid obesity: Comment: Patient has underlying developmental disorder, She is morbidly obese, with typical round face and narrow oropharynx, Mallampati class 4. Difficult for her to lose weight. Code(s): E66.01 - Morbid (severe) obesity due to excess calories (9) KARLA (obstructive sleep apnea): Comment: SHE IS A CONFIRMED CASE OF SEVERE OBSTRUCTIVE SLEEP APNEA. CPAP TITRATION STUDY DETERMINED THAT SHE NEEDS BY BI-LEVEL CPAP WITH PRESSURE SETTING 20/16 CM. SHE IS NOT ABLE TO USE THE CPAP SHE BITES ON THE MASK AND EATS THE PLASTIC CHIPS, SIMILARLY SHE ALSO BITES ON THE NASAL CANNULA AND CANNOT USE THE OXYGEN. UNDER THE CIRCUMSTANCES THERE IS NO OTHER PRACTICAL SOLUTION AT THIS TIME. EVANTUALLY AT SOME POINT SHE MAY NEED PERMANENT TRACHEOSTOMY FOR TREATMENT OF HER KARLA. HER GRADUAL WEIGHT LOSS EVEN THOUGH IT IS IN HIS SMALL AMOUNT IS QUITE ENCOURAGING. Code(s): G47.33 - Obstructive sleep apnea (adult) (pediatric) (10) Major depression, recurrent: Code(s): F33.9 - Major depressive disorder, recurrent, unspecified Qualifiers: Active/Remission status: currently active Major depression episode severity: moderate Qualified Code(s): F33.1 - Major depressive disorder, recurrent, moderate (11) Autistic disorder: Code(s): F84.0 - Autistic disorder Plan Patient is 28-year-old female came in today for preop clearance for wisdom tooth surgery with staff members She has a history of Prader-Willi syndrome, autism, morbid obesity, peripheral vascular disease, severe obstructive sleep apnea but not able to use the CPAP machine Lymphedema, major depression, chronic GERD, Crohn's disease, hypertension. However patient does not have a date of surgery at She is due for labs I see that her heart rate has been running low in 50s I am changing her atenolol to losartan 25 mg Patient is to return again in 2 weeks for re-evaluation Orders: Orders Complete Blood Count Auto Diff Today E66.01 - Morbid (severe) obesity due to excess calories, F33.1 - Major depressive disorder, recurrent, moderate, F84.0 - Autistic disorder, F99 - Mental disorder, not otherwise specified, G47.33 - Obstructive sleep apnea (adult) (pediatric), I10 - Essential (primary) hypertension, K21.9 - Gastro-esophageal reflux disease without esophagitis, K50.10 - Crohn's disease of large intestine without complications, Q87.11 - Prader-Willi syndrome, R79.89 - Other specified abnormal findings of blood chemistry Comprehensive Met. Panel Today E66.01 - Morbid (severe) obesity due to excess calories, F33.1 - Major depressive disorder, recurrent, moderate, F84.0 - Autistic disorder, F99 - Mental disorder, not otherwise specified, G47.33 - Obstructive sleep apnea (adult) (pediatric), I10 - Essential (primary) hypertension, K21.9 - Gastro-esophageal reflux disease without esophagitis, K50.10 - Crohn's disease of large intestine without complications, Q87.11 - Prader-Willi syndrome, R79.89 - Other specified abnormal findings of blood chemistry Medications: New losartan 25 mg PO .q 8 am 30 tabs 0RF High blood pressure Discontinued atenolol Discontinued Reason: Doctor's Order 25 mg PO .q 8 am 90 days 90 tabs 3RF I10 - Essential (primary) hypertension Coding Level of Care Code Est Pt Level 4 (51288) Diagnoses Pre-op evaluation Z01.818 Hypertension, essential I10 Prader-Willi syndrome Q87.11 Crohn's disease of large intestine without complication K50.10 Digestive disease complication type: without complication Gastrointestinal tract location: large intestine Chronic GERD K21.9 LFT elevation R79.89 Psychiatric illness F99 Morbid obesity E66.01 KARLA (obstructive sleep apnea) G47.33 Moderate episode of recurrent major depressive disorder F33.1 Active/Remission status: currently active Major depression episode severity: moderate Autistic disorder F84.0
[2023-12-14 14:39] VITALS: BP 112/78; PULSE 51; O2SAT 90; BMI 39.7
== END 2023-12-14 15:11 | disposition home or self-care (01) ==
PROVIDERS: PCP Internal Medicine; Visit Provider Internal Medicine
DX: K50.10 Crohn's disease of large intestine without complications (principal); F33.1 Major depressive disorder, recurrent, moderate; E66.01 Morbid (severe) obesity due to excess calories; Z68.39 Body mass index [BMI] 39.0-39.9, adult; I10 Essential (primary) hypertension; Z01.818 Encounter for other preprocedural examination; Q87.11 Prader-Willi syndrome; K21.9 Gastro-esophageal reflux disease without esophagitis; R79.89 Other specified abnormal findings of blood chemistry; F99 Mental disorder, not otherwise specified; G47.33 Obstructive sleep apnea (adult) (pediatric); F84.0 Autistic disorder

== ENCOUNTER → 2023-12-14 14:33 | Outpatient (BNVA) | payer MEDICARE, SELFPAY | PROVIDERS: PCP Internal Medicine; Visit Provider Internal Medicine ==

== ENCOUNTER 2023-12-14 14:59 | Outpatient (REF) | payer MEDICARE, SELFPAY ==
[2023-12-14 16:27] LABS: MANUAL DIFF FLAG NO
[2023-12-14 16:35] LABS: Basophils Percent Auto 0.5 % (0-2); Eosinophils Absolute Auto 0.1 X10*3/uL (0.0-0.4); Eosinophils Percent Auto 2.2 % (0-4); Hematocrit 40.8 % (37.0-47.0); Hemoglobin 13.1 g/dl (12.0-16.0); Imm Gran Abs Auto 0.03 X10*3/uL (0.00-0.03); Imm Gran Pct Auto 0.5 % (0.0-0.4); Lymphocytes Absolute Auto 1.7 X10*3/uL (1.2-4.9); Lymphocytes Percent Auto 26.5 % (20-40); Mean Corpuscular HGB Conc 32.1 g/dl (31.0-35.0); Mean Corpuscular Hemoglobin 28.5 pg (27.0-33.0); Mean Corpuscular Volume 88.7 fL (80.0-98.0); Mean Platelet Volume 11.8 fL (9.4-12.3); Monocytes Absolute Auto 0.6 X10*3/uL (0.1-1.2); Monocytes Percent Auto 9.3 % (2-11); Neutrophils Absolute Auto 3.9 x10*3/uL (2.0-8.3); Platelet Count 191 X10*3/uL (160-400); Red Cell Distribution Width 13.6 % (11.0-16.0); White Blood Count 6.4 X10*3/uL (4.8-10.8)
[2023-12-14 16:50] LABS: Alanine Aminotransferase 21 U/L (0-31); Albumin Level 4.2 g/dL (3.5-5.0); Alkaline Phosphatase 60 U/L (39-117); Anion Gap 13 (12-20); Aspartate Amino Transferase 25 U/L (5-31); Bilirubin Total 0.3 mg/dL (0.0-1.0); Blood Urea Nitrogen 19 mg/dL (9-16); Calcium 9.8 mg/dL (8.4-10.2); Carbon Dioxide 26 mmol/L (22-29); Chloride 103 mmol/L (96-108); Estimated Glomerular Filt Rate > 60; Glucose Random 88 mg/dL (60-115); Potassium 4.2 mmol/L (3.3-5.1); Sodium 138 mmol/L (135-145); Total Protein 7.7 g/dL (6.5-8.0)
== END 2023-12-14 15:00 | disposition home or self-care (01) ==
LOC: HO.HMGCLDS 14:59
PROVIDERS: PCP Internal Medicine; Visit Provider Internal Medicine
DX: Z01.818 Encounter for other preprocedural examination (principal); I10 Essential (primary) hypertension; I73.9 Peripheral vascular disease, unspecified; I89.0 Lymphedema, not elsewhere classified; R79.89 Other specified abnormal findings of blood chemistry; E66.01 Morbid (severe) obesity due to excess calories; Q87.11 Prader-Willi syndrome; G47.33 Obstructive sleep apnea (adult) (pediatric); K50.10 Crohn's disease of large intestine without complications; K21.9 Gastro-esophageal reflux disease without esophagitis; F84.0 Autistic disorder; F33.1 Major depressive disorder, recurrent, moderate; Z68.39 Body mass index [BMI] 39.0-39.9, adult
CPT/HCPCS: 36415; 80053; 85025; 99212

== ENCOUNTER 2023-12-20 10:10 | Outpatient (AMB) | payer MEDICARE, MEDICAID, SELFPAY ==
[2023-12-20 10:17] VITALS: BP 136/58; PULSE 76; O2SAT 93; BMI 39.3
--- NOTE | 2023-12-20 10:17 | MHC.OFFVIS ---
Vital Signs 12/20/23 10:17 Height 5 ft Weight 201 lb 0.985 oz BMI 39.3 BP 136/58 L Blood Pressure Location Lt brachial Position Sitting Pulse 76 Pulse Source Pulse Oximeter Pulse Oximetry (%) 93 Oxygen Delivery Method Room Air Intake Visit Reasons: 3 month follow up Intake Note: Tiki presents in office today for a scheduled 3 mos FUV. CC; Pt recently had lab work done. Pt last stelara injection - 11/02/2023 > Next injection - 12/28/2023 Pt reports that they have been doing well since their last visit. Pt denies any new complications or concerns. condemnation engineer are present and have provider note to have filled out and signed. [place] Worker Required: No Accompanied by: Other Relationship Allergies silver [From TEGADERM AG MESH] Allergy (Unknown, Verified 12/20/23 10:18) RASH transparent dressing Allergy (Unknown, Verified 12/20/23 10:18) skin irritation sensitivity haloperidol [From HALDOL] Adverse Reaction (Intermediate, Verified 12/20/23 10:18) UNKNOWN Tegaderm CHG dressing: Allergy (Unknown, Uncoded 11/22/23 11:34) skin irritation Haldol Adverse Reaction (Unknown, Uncoded 11/22/23 11:34) paradoxical effect HPI HPI 3 month follow up: Details: LAST VISIT: Crohn's disease Transaminitis Constipation by delayed colonic transit Plan Recently elevated liver enzymes. Will send patient to repeat blood work and will rule out autoimmune disorders. Will send patient for liver ultrasound with elastography. Patient was encouraged to try to lose weight, eat more protein and less carbs and fat. Follow-up for injections. Continue MiraLax daily. Increase fluid intake and activity to promote better bowel motility. Avoid dietary triggers and late night snacking. Staying upright for minimum 3 hours after meals discussed with patient. Patient will follow-up in the office in 3-4 months, sooner on as needed basis. She is agreeable to this plan and verbalizes understanding of instructions. She was given the opportunity to ask questions and all questions answered. ? Thank you for allowing me to participate in her care Orders Orders Alpha Fetoprotein 09/07/23 R79.89 Calprotectin, Fecal 09/07/23 R15.9 IRON PROFILE 09/07/23 D64.9 Ferritin 09/07/23 R74.8 Mitochondrial Antibody 09/07/23 R79.89 TSH reflex Free T4 09/07/23 K59.00 Hemoglobin A1c 09/07/23 E11.9 Hepatitis A,B,C Profile 09/07/23 R79.89 Prothrombin Time INR 09/07/23 R74.8 C Reactive Protein 09/07/23 K58.9 Liver Fibrosis Pnl 09/07/23 R74.8 Liver Panel 09/07/23 R74.01 Smooth Muscle Antibody 09/07/23 R79.89 Vitamin D 25-OH (D2 and D3) 09/07/23 E55.9 Vitamin B12 and Folate 09/07/23 R19.7 US abdomen limited 09/07/23 R79.[address]-ER 3 tablets every day for 30 days, then 2 tablets every day for 30 days then 1 tablet daily for 30 days Discontinued Reason: Patient Completed Course 9 mg (3 x 3 mg) PO DAILY 180 ea 0RF TODAY'S VISIT Patient is here today for follow-up. Patient is accompanied by staff members who care for patient. Patient reports to be doing better. Occasional constipation, however staff states that patient sometimes will try to force to push to have a bowel movement. Most often her stools are soft. Patient denies any dyspepsia, dysphagia or odynophagia. Denies melena, hematochezia, unintentional no weight loss or ribbon like stools. Patient lost 27 lb since the 1st time I have seen her. Patient's liver enzymes normalized. Stool calprotectin normal. Patient will be back for Stelara injection on December 27. Hepatitis study done, antibody/antigen negative/nonreactive. Patient reports to be feeling well otherwise. [facility]LY [facility], LAT[facility] Medical History Transaminitis KARLA (obstructive sleep apnea) Somnolence, daytime Morbid obesity Pain of left lower extremity Swelling of left lower extremity Hypertension, essential Mood disorder Developmental delay, mild Vitamin D deficiency Anemia Iron deficiency PTSD (post-traumatic stress disorder) Anxiety Autistic disorder Chronic constipation Acute constipation Colitis Crohn's disease Prader-Willi syndrome Pica in adults Surgical History History of abdominal surgery History of throat surgery Family History Father No problems noted. Mother No problems noted. Social History Household Members: Other Housing: Other Do you presently have visiting nurse or other home services: Yes Alcohol intake: never Comment: No complaints of headache Patient Tobacco Use Status: Never used Tobacco e-Cigarette/Vaping Use: Never Used Second Hand Smoke Exposure: No service: No Current occupational status: disabled Cognitive needs: No Hearing needs: No Vision needs: Yes Female Reproductive History Menstrual Age of Menarche: 11 Physical Exam Vital Signs: Last Vital Signs Pulse 76 12/20/23 10:17 BP 136/58 L 12/20/23 10:17 Pulse Ox 93 12/20/23 10:17 Oxygen Delivery Method Room Air 12/20/23 10:17 BMI result Body Mass Index 39.3 Const General: no acute distress Resp Effort & Inspection: normal respiratory effort, able to speak in complete sentences, no tracheal deviation and symmetric chest movement Auscultation: clear to auscultation bilaterally Cardio Rate: regular rate GI Inspection: Yes normal to inspection and Yes obesity Palpation (GI): Soft to palpation Auscultation: normal bowel sounds General: Yes no CVA tenderness Back/Spine/Pelvis Back: no CVA tenderness Skin General skin exam: elasticity normal, turgor normal and dry skin Psych Appearance: grossly normal Results Reviewed Results Reviewed: ABDOMINAL ULTRASOUND FINDINGS: PANCREAS: Limited visualization of pancreatic tail and head. Imaged portion of pancreatic body is unremarkable. LIVER: Increased hepatic parenchymal heterogeneity and echogenicity could be associated with hepatocellular disease/hepatic steatosis and severely limits visualization. Correlation with liver function tests and clinical exam recommended to determine further management. GALLBLADDER: No gallstones. No gallbladder wall thickening. COMMON BILE DUCT: Normal in caliber measuring 0.20 cm in diameter. RIGHT KIDNEY: No hydronephrosis. No renal calculi. Limited visualization. The kidney measures 10.6 cm in maximum dimension. FREE FLUID: None. US/US abdomen limited IMPRESSION: Increased hepatic parenchymal heterogeneity and echogenicity could be associated with hepatocellular disease/hepatic steatosis and severely limits visualization. Correlation with liver function tests and clinical exam recommended to determine further management. Laboratory Tests 03/25/23 07/28/23 09/07/23 07:45 13:11 11:17 AST 70 H 37 H ALT 95 H 55 H C-Reactive Protein 0.52 H Alpha Fetoprotein 3.8 Vitamin B12 456 25-OH Vitamin D Total 47 TSH 3.34 Stool Calprotectin 3360 H Anti-Mitochondrial Ab NEGATIVE Anti-Smooth Muscle Ab <20 Hepatitis A IgM Ab Nonreactive Hep Bs Antigen Negative Hep Bs Antibody NONREACTIVE Hep B Core Total Ab Nonreactive Hepatitis C Ab (EIA) Nonreactive 10/19/23 12/14/23 08:45 15:10 AST 25 ALT 21 C-Reactive Protein Alpha Fetoprotein Vitamin B12 25-OH Vitamin D Total TSH Stool Calprotectin 85 Anti-Mitochondrial Ab Anti-Smooth Muscle Ab Hepatitis A IgM Ab Hep Bs Antigen Hep Bs Antibody Hep B Core Total Ab Hepatitis C Ab (EIA) Assessment & Plan Assessment & Plan (1) Crohn's disease: Code(s): K50.90 - Crohn's disease, unspecified, without complications Category: Medical Qualifiers: Gastrointestinal tract location: large intestine Digestive disease complication type: without complication Qualified Code(s): K50.10 - Crohn's disease of large intestine without complications (2) Transaminitis: Code(s): R74.01 - Elevation of levels of liver transaminase levels Category: Medical (3) Constipation by delayed colonic transit: Code(s): K59.01 - Slow transit constipation Category: Medical (4) Nonalcoholic fatty liver: Code(s): K76.0 - Fatty (change of) liver, not elsewhere classified Plan Hep B vaccine today. Continue with Stelara injections every 8 weeks. Patient is stable at this time. Continue weight loss with diet and exercise. Follow-up in the office in 6 months, sooner on as needed basis. Patient and staff verbalize understanding of instructions. They were given the opportunity to ask questions and all questions answered. Thank you for allowing me to participate in her care Orders: Orders Hepatitis B Adult Immunization Today Z23 - Encounter for immunization Hepatitis B Adult Immunization Today Z23 - Encounter for immunization Coding Level of Care Code Established Pt Est Pt Level 3 (36701) Patient Type Established Medical Decision Making Straight Forward Diagnoses Crohn's disease of large intestine without complication K50.10 Gastrointestinal tract location: large intestine Digestive disease complication type: without complication Transaminitis R74.01 Constipation by delayed colonic transit K59.01 Nonalcoholic fatty liver K76.0 Time Spent (min) 35 Comment 20 minutes spent with patient and additional 15 minutes spent reviewing her records
== END 2023-12-20 11:22 | disposition home or self-care (01) ==
PROVIDERS: PCP Internal Medicine; Visit Provider Nurse Practitioner Family
DX: K50.10 Crohn's disease of large intestine without complications (principal); R74.01 Elevation of levels of liver transaminase levels; K59.01 Slow transit constipation; K76.0 Fatty (change of) liver, not elsewhere classified; Z23 Encounter for immunization
CPT/HCPCS: 99213

== ENCOUNTER → 2023-12-20 10:10 | Outpatient (BNVA) | payer MEDICARE, MEDICAID, SELFPAY | PROVIDERS: PCP Internal Medicine; Visit Provider Nurse Practitioner Family | DX: K50.10 Crohn's disease of large intestine without complications (principal); Z23 Encounter for immunization; R74.01 Elevation of levels of liver transaminase levels; K59.01 Slow transit constipation; K76.0 Fatty (change of) liver, not elsewhere classified | CPT/HCPCS: 90471; 90746; 99212 ==

== ENCOUNTER 2023-12-28 09:58 | Outpatient (AMB) | payer MEDICARE, SELFPAY ==
--- NOTE | 2023-12-28 10:16 | AM.OFFVISNUR ---
Intake Visit Reasons: stelara injection Allergies silver [From TEGADERM AG MESH] Allergy (Unknown, Verified 12/20/23 10:18) RASH transparent dressing Allergy (Unknown, Verified 12/20/23 10:18) skin irritation sensitivity haloperidol [From HALDOL] Adverse Reaction (Intermediate, Verified 12/20/23 10:18) UNKNOWN Tegaderm CHG dressing: Allergy (Unknown, Uncoded 11/22/23 11:34) skin irritation Haldol Adverse Reaction (Unknown, Uncoded 11/22/23 11:34) paradoxical effect Office Meds Stelara 90 mg/mL subcutaneous syringe Performing Provider: ROMEL Del Rio Performing Location: [facility] [facility] Administered by: Leatha Evans RN on 12/28/23 10:16 Dose Route Admin Location Dispensed Lot Number Expiration Date [facility] [address] Production General Manager 90 mg subcut Left Arm, Upper 1 mL [id number] 05/26/26 [id number] Assessment & Plan Assessment & Plan Orders: Orders AMB Ustekinumab Injection Today K50.10 - Crohn's disease of large intestine without complications Medications: New Stelara (ustekinumab) 90 mg subcut ONCE 1 mL 0RF NS K50.10 - Crohn's disease of large intestine without complications
== END 2023-12-28 10:18 | disposition home or self-care (01) ==
PROVIDERS: PCP Internal Medicine; Visit Provider Nurse Practitioner Family
DX: K50.10 Crohn's disease of large intestine without complications (principal)

== ENCOUNTER → 2023-12-28 09:58 | Outpatient (BNVA) | payer MEDICARE, SELFPAY | PROVIDERS: PCP Internal Medicine; Visit Provider Nurse Practitioner Family | DX: K50.10 Crohn's disease of large intestine without complications (principal); Z51.81 Encounter for therapeutic drug level monitoring; Z79.899 Other long term (current) drug therapy | CPT/HCPCS: 96372; 99211; J3357 ==

== ENCOUNTER 2023-12-29 12:55 | Outpatient (AMB) | payer MEDICARE, SELFPAY ==
[2023-12-29 13:04] VITALS: BP 122/76; PULSE 76; O2SAT 93; BMI 38.7
--- NOTE | 2023-12-29 13:04 | A.OFFPC_ITS ---
Vital Signs 3 12/29/23 13:04 Height 5 ft Weight 198 lb BMI 38.7 BP 122/76 Blood Pressure Location Lt brachial Position Sitting Pulse 76 Pulse Source Pulse Oximeter Pulse Oximetry (%) 93 Intake Visit Reasons: Follow up on Med Losartan Allergies silver [From TEGADERM AG MESH] Allergy (Unknown, Verified 12/29/23 13:05) RASH transparent dressing Allergy (Unknown, Verified 12/29/23 13:05) skin irritation sensitivity haloperidol [From HALDOL] Adverse Reaction (Intermediate, Verified 12/29/23 13:05) UNKNOWN Tegaderm CHG dressing: Allergy (Unknown, Uncoded 11/22/23 11:34) skin irritation Haldol Adverse Reaction (Unknown, Uncoded 11/22/23 11:34) paradoxical effect Tobacco use date assessed: 12/14/23 Dental Screening Dental Screen Date: 12/14/23 HPI Follow up on Med Losartan 2 HPI0 Details Patient is 28-year-old female came in for follow-up on blood pressure Atenolol stopped last visit due to bradycardia, losartan started come heart rate is much better Patient is still feel drowsy throughout the day Has a history of sleep apnea unable to use CPAP machine Splinter left hand since this morning Removed with the help of scalpel and forceps Patient tolerated procedure well Minimal bleeding No anesthetic [facility] Medical History Transaminitis KARLA (obstructive sleep apnea) Somnolence, daytime Morbid obesity Pain of left lower extremity Swelling of left lower extremity Hypertension, essential Mood disorder Developmental delay, mild Vitamin D deficiency Anemia Iron deficiency PTSD (post-traumatic stress disorder) Anxiety Autistic disorder Chronic constipation Acute constipation Colitis Crohn's disease Prader-Willi syndrome Pica in adults Surgical History History of abdominal surgery History of throat surgery Family History Father No problems noted. Mother No problems noted. Social History Household Members: Other Housing: Other Do you presently have visiting nurse or other home services: Yes Alcohol intake: never Comment: No complaints of headache Patient Tobacco Use Status: Never used Tobacco e-Cigarette/Vaping Use: Never Used Second Hand Smoke Exposure: No service: No Current occupational status: disabled Cognitive needs: No Hearing needs: No Vision needs: Yes Female Reproductive History Menstrual Age of Menarche: 11 Questionnaire Thrive Questionnaire Date Thrive assessed: 12/14/23 I am a: Parent/Caregiver What is your living situation today?: I have a steady place to live Within the past 12 months, did the food you bought not last and you didn't have the money to get more?: Never true Within the past 12 months, did you worry whether your food would run out before you got money to buy more?: Never true Do you have trouble paying for medicines?: No Do you have trouble getting transportation to medical appointments?: No Do you have trouble paying your heating and electricity bill?: No Do you have trouble taking care of your child, family member or friend?: No Do you have trouble with day-to-day activities such as bathing, preparing meals, shopping, managing finances, etc.?: No Are you interested in more education?: No Please select the resources that you would like help with: None Currently or been in a relationship where the following occur: No concerns reported THRIVE Score: 0 BEVERLEY-7 AMB Questionnaire BEVERLEY-7 Date BEVERLEY - 7 assessed: 04/21/23 Source: Developed by Drs. Lucian Garcia, Claudia Diaz, Edi Moore and colleagues, with an educational brian from [employer]. Review of Systems Const Denies chills and Denies fever(s) ENT Denies epistaxis and Denies nasal discharge Card Denies chest pain Resp Denies chest congestion, Denies cough and Denies hemoptysis GI Denies diarrhea and Denies nausea Skin/Breast Denies rash Neuro Reports no additional complaints Psych Reports no additional complaints Endo Reports no additional complaints Physical exam (Primary Care) Vital Signs: Last Vital Signs Pulse 76 12/29/23 13:04 BP 122/76 12/29/23 13:04 Pulse Ox 93 12/29/23 13:04 BMI result Body Mass Index 38.7 Tobacco/Smoking Status: Tobacco use Status Tobacco use date assessed 12/14/23 12/29/23 13:06 Patient Tobacco Use Status Never used Tobacco 12/29/23 13:06 e-Cigarette/Vaping Use Never Used 12/29/23 13:06 Thrive Assessment: Date of Thrive Assessment Date Thrive assessed 12/14/23 12/29/23 13:06 Currently or been in a relationship where the following occur: No concerns reported Const General: cooperative, comfortable and no acute distress Orientation/consciousness: patient oriented x3 HENMT Head: Yes normocephalic Eyes General: appearance normal, both eyes and all related structures Neck Neck: Yes supple Resp Effort & Inspection: normal respiratory effort, no cough and no stridor Cardio Rhythm: regular rhythm Heart sounds: S1 normal heart sound present and S2 normal heart sound present Skin General skin exam: turgor normal Neuro General: patient oriented x3, tone normal and moves all extremities Extrem Hand/finger images: 2 1. Splinter removed with the help of scalpel 11. And forceps under sterile condition, minimal bleeding, no anesthetic used patient tolerated procedure well Right lower extremity: no edema Left lower extremity: no edema Coding Level of Care Code Est Pt Level 4 (51521) Diagnoses Hypertension, essential I10 KARLA (obstructive sleep apnea) G47.33 Splinter of hand S60.559A Assessment & Plan Assessment & Plan (1) Hypertension, essential: Code(s): I10 - Essential (primary) hypertension Category: Medical (2) KARLA (obstructive sleep apnea): Comment: SHE IS A CONFIRMED CASE OF SEVERE OBSTRUCTIVE SLEEP APNEA. CPAP TITRATION STUDY DETERMINED THAT SHE NEEDS BY BI-LEVEL CPAP WITH PRESSURE SETTING 20/16 CM. SHE IS NOT ABLE TO USE THE CPAP SHE BITES ON THE MASK AND EATS THE PLASTIC CHIPS, SIMILARLY SHE ALSO BITES ON THE NASAL CANNULA AND CANNOT USE THE OXYGEN. UNDER THE CIRCUMSTANCES THERE IS NO OTHER PRACTICAL SOLUTION AT THIS TIME. EVANTUALLY AT SOME POINT SHE MAY NEED PERMANENT TRACHEOSTOMY FOR TREATMENT OF HER KARLA. HER GRADUAL WEIGHT LOSS EVEN THOUGH IT IS IN HIS SMALL AMOUNT IS QUITE ENCOURAGING. Code(s): G47.33 - Obstructive sleep apnea (adult) (pediatric) Category: Medical (3) Splinter of hand: Code(s): S60.559A - Superficial foreign body of unspecified hand, initial encounter Category: Medical Plan Patient is 28-year-old female came in for follow-up on blood pressure Atenolol stopped last visit due to bradycardia, losartan started come heart rate is much better Patient is still feel drowsy throughout the day Has a history of sleep apnea unable to use CPAP machine Splinter left hand since this morning Removed with the help of scalpel and forceps Patient tolerated procedure well Minimal bleeding No anesthetic needed
== END 2023-12-29 13:35 | disposition home or self-care (01) ==
PROVIDERS: PCP Internal Medicine; Visit Provider Internal Medicine
DX: I10 Essential (primary) hypertension (principal); G47.33 Obstructive sleep apnea (adult) (pediatric); S60.559A Superficial foreign body of unspecified hand, initial encounter

== ENCOUNTER → 2023-12-29 12:55 | Outpatient (BNVA) | payer MEDICARE, SELFPAY | PROVIDERS: PCP Internal Medicine; Visit Provider Internal Medicine | DX: I10 Essential (primary) hypertension (principal); G47.33 Obstructive sleep apnea (adult) (pediatric); S60.55 Superficial foreign body of hand | CPT/HCPCS: 99212 ==

== ENCOUNTER 2024-01-07 08:33 | Outpatient (AMB) | payer MEDICARE, SELFPAY ==
[2024-01-07 08:43] VITALS: BP 122/78; PULSE 66; O2SAT 96; BMI 38.3
--- NOTE | 2024-01-07 08:43 | A.OFFPC_ITS ---
Vital Signs 3 01/07/24 08:43 Height 5 ft Weight 196 lb 6 oz BMI 38.3 BP 122/78 Blood Pressure Location Rt brachial Position Sitting Pulse 66 Pulse Source Pulse Oximeter Pulse Oximetry (%) 96 Oxygen Delivery Method Room Air Intake Visit Reasons: EKG/Preop Allergies silver [From TEGADERM AG MESH] Allergy (Unknown, Verified 12/29/23 13:05) RASH transparent dressing Allergy (Unknown, Verified 12/29/23 13:05) skin irritation sensitivity haloperidol [From HALDOL] Adverse Reaction (Intermediate, Verified 12/29/23 13:05) UNKNOWN Tegaderm CHG dressing: Allergy (Unknown, Uncoded 11/22/23 11:34) skin irritation Haldol Adverse Reaction (Unknown, Uncoded 11/22/23 11:34) paradoxical effect Medication List - Last Reconciled 01/07/24 by Galen Xie MD acetaminophen 325 mg PO BID PRN 30 days calcium citrate-vitamin D3 315 mg-5 mcg (200 unit) (Calcium Citrate + D) 1 tab PO QAM 90 days cetirizine (Zyrtec) 10 mg PO .q 8 am 90 days cholecalciferol (vitamin D3) (Vitamin D3) 50 mcg PO .q 8 am 90 days famotidine 40 mg PO BEDTIME fluoxetine 20 mg PO DAILY fluticasone propionate 50 mcg/actuation 1 spray intranasal BEDTIME 30 days folic acid 1 mg PO QAM 90 days losartan 25 mg PO .q 8 am multivitamin 1 tab PO DAILY naltrexone 50 mg PO DAILY olanzapine (Zyprexa) 5 mg PO BEDTIME omega 3-psw-whq-fish oil 300-1,000 mg 1 cap orally in am, noon and pm; 90 days rosuvastatin 5 mg PO .qhs trazodone 100 mg PO BEDTIME ustekinumab (Stelara) 90 mg subcut Q8W Tobacco use date assessed: 12/14/23 Dental Screening Dental Screen Date: 12/14/23 HPI EKG/Preop 2 HPI0 Details Patient came in today to have preop evaluation for dental extraction 16. And 17 by [facility] [place] Phone number [phone] Procedure will be done under general anesthesia in the OR at [facility] Date to be determined Duration of surgery will be 30 minute EKG done today shows normal sinus rhythm, 62 beats per minute No acute ST or T wave abnormality Patient is 28-year-old female with history of obesity, hypertension, blood pressure well-controlled, allergies, anxiety, psychiatric illness treated by Psychiatry, lipid disorder, lymphedema, peripheral vascular disease, autistic disorder, obstructive sleep apnea but unable to use the CPAP machine, Prader- Willi syndrome with history of PICA, Crohn's disease stable at this time established with [facility]. Labs done recently reviewed Patient is stable for dental surgery [facility] Medical History Transaminitis KARLA (obstructive sleep apnea) Somnolence, daytime Morbid obesity Pain of left lower extremity Swelling of left lower extremity Hypertension, essential Mood disorder Developmental delay, mild Vitamin D deficiency Anemia Iron deficiency PTSD (post-traumatic stress disorder) Anxiety Autistic disorder Chronic constipation Acute constipation Colitis Crohn's disease Prader-Willi syndrome Pica in adults Surgical History History of abdominal surgery History of throat surgery Family History Father No problems noted. Mother No problems noted. Social History Household Members: Other Housing: Other Do you presently have visiting nurse or other home services: Yes Alcohol intake: never Comment: No complaints of headache Patient Tobacco Use Status: Never used Tobacco e-Cigarette/Vaping Use: Never Used Second Hand Smoke Exposure: No service: No Current occupational status: disabled Cognitive needs: No Hearing needs: No Vision needs: Yes Female Reproductive History Menstrual Age of Menarche: 11 Questionnaire Thrive Questionnaire Date Thrive assessed: 12/14/23 I am a: Parent/Caregiver What is your living situation today?: I have a steady place to live Within the past 12 months, did the food you bought not last and you didn't have the money to get more?: Never true Within the past 12 months, did you worry whether your food would run out before you got money to buy more?: Never true Do you have trouble paying for medicines?: No Do you have trouble getting transportation to medical appointments?: No Do you have trouble paying your heating and electricity bill?: No Do you have trouble taking care of your child, family member or friend?: No Do you have trouble with day-to-day activities such as bathing, preparing meals, shopping, managing finances, etc.?: No Are you interested in more education?: No Please select the resources that you would like help with: None Currently or been in a relationship where the following occur: No concerns reported THRIVE Score: 0 BEVERLEY-7 AMB Questionnaire BEVERLEY-7 Date BEVERLEY - 7 assessed: 04/21/23 Source: Developed by Drs. Lucian Garcia, Claudia Diaz, Edi Moore and colleagues, with an educational brian from [employer]. Review of Systems Const Denies chills and Denies fever(s) ENT Denies epistaxis and Denies nasal discharge Card Denies chest pain Resp Denies chest congestion, Denies cough and Denies hemoptysis GI Denies diarrhea and Denies nausea Skin/Breast Denies rash Neuro Reports no additional complaints Psych Reports no additional complaints Endo Reports no additional complaints Physical exam (Primary Care) Vital Signs: Last Vital Signs Pulse 66 01/07/24 08:43 BP 122/78 01/07/24 08:43 Pulse Ox 96 01/07/24 08:43 Oxygen Delivery Method Room Air 01/07/24 08:43 BMI result Body Mass Index 38.3 Tobacco/Smoking Status: Tobacco use Status Tobacco use date assessed 12/14/23 01/07/24 08:45 Patient Tobacco Use Status Never used Tobacco 01/07/24 08:45 e-Cigarette/Vaping Use Never Used 01/07/24 08:45 Thrive Assessment: Date of Thrive Assessment Date Thrive assessed 12/14/23 01/07/24 08:45 Currently or been in a relationship where the following occur: No concerns reported Const General: cooperative, comfortable and no acute distress HENMT Head: Yes normocephalic Eyes General: appearance normal, both eyes and all related structures Neck Neck: Yes supple Resp Effort & Inspection: normal respiratory effort, no cough and no stridor Cardio Other: Rhythm: regular rhythm Heart sounds: S1 normal heart sound present and S2 normal heart sound present Skin General skin exam: turgor normal Neuro General: tone normal and moves all extremities Office Procedures EKG [id number], Complete Results Reviewed Results Reviewed: Laboratory Tests 12/14/23 15:10 WBC 6.4 RBC 4.60 Hgb 13.1 Hct 40.8 MCV 88.7 Plt Count 191 D Absolute Neuts (auto) 3.9 Sodium 138 Potassium 4.2 Chloride 103 Carbon Dioxide 26 Anion Gap 13 BUN 19 H Creatinine 0.84 Estimated GFR > 60 Random Glucose 88 Calcium 9.8 Total Bilirubin 0.3 AST 25 ALT 21 Alkaline Phosphatase 60 Total Protein 7.7 Albumin 4.2 Coding Level of Care Code Est Pt Level 5 (71415) Diagnoses Pre-op evaluation Z01.818 Tooth ache K08.89 Hypertension, essential I10 Prader-Willi syndrome Q87.11 Crohn's disease of large intestine without complication K50.10 Digestive disease complication type: without complication Gastrointestinal tract location: large intestine Psychiatric illness F99 Environmental allergies Z91.09 Peripheral vascular disease I73.9 Lymphedema I89.0 Obstructive sleep apnea syndrome G47.33 Sleep apnea type: obstructive CPT Codes EKG - CPT: [id number], Complete ([id number]) Assessment & Plan Assessment & Plan (1) Pre-op evaluation: Code(s): Z01.818 - Encounter for other preprocedural examination Category: Medical (2) Tooth ache: Code(s): K08.89 - Other specified disorders of teeth and supporting structures Category: Medical (3) Hypertension, essential: Code(s): I10 - Essential (primary) hypertension Category: Medical (4) Prader-Willi syndrome: Comment: Patient has developmental disorder secondary to Prader Willi Syndrome Code(s): Q87.11 - Prader-Willi syndrome Category: Medical (5) Crohn's disease: Code(s): K50.90 - Crohn's disease, unspecified, without complications Category: Medical Qualifiers: Digestive disease complication type: without complication G astrointestinal tract location: large intestine Qualified Code(s): K50.10 - Crohn's disease of large intestine without complications (6) Psychiatric illness: Code(s): F99 - Mental disorder, not otherwise specified Category: Medical (7) Environmental allergies: Code(s): Z91.09 - Other allergy status, other than to drugs and biological substances Category: Medical (8) Peripheral vascular disease: Code(s): I73.9 - Peripheral vascular disease, unspecified Category: Medical (9) Lymphedema: Code(s): I89.0 - Lymphedema, not elsewhere classified Category: Medical (10) Sleep apnea: Code(s): G47.30 - Sleep apnea, unspecified Category: Medical Qualifiers: Sleep apnea type: obstructive Qualified Code(s): G47.33 - Obstructive sleep apnea (adult) (pediatric) Plan Patient came in today to have preop evaluation for dental extraction 16. And 17 by [facility], [place] Phone number [phone] Procedure will be done under general anesthesia in the OR at [facility] Date to be determined Duration of surgery will be 30 minute EKG done today shows normal sinus rhythm, 62 beats per minute No acute ST or T wave abnormality Patient is 28-year-old female with history of obesity, hypertension, blood pressure well-controlled, allergies, anxiety, psychiatric illness treated by Psychiatry, lipid disorder, lymphedema, peripheral vascular disease, autistic disorder, obstructive sleep apnea but unable to use the CPAP machine, Prader- Willi syndrome with history of PICA, Crohn's disease stable at this time established with [facility]. Labs done recently reviewed Patient is stable for dental surgery Forty-five appointment including reviewing chart, EKG, [id number] with the patient Coordination of care
== END 2024-01-07 10:19 | disposition home or self-care (01) ==
PROVIDERS: PCP Internal Medicine; Visit Provider Internal Medicine
DX: Z01.818 Encounter for other preprocedural examination (principal); K50.10 Crohn's disease of large intestine without complications; I73.9 Peripheral vascular disease, unspecified; K08.89 Other specified disorders of teeth and supporting structures; I10 Essential (primary) hypertension; Q87.11 Prader-Willi syndrome; F99 Mental disorder, not otherwise specified; Z91.09 Other allergy status, other than to drugs and biological substances; I89.0 Lymphedema, not elsewhere classified; G47.33 Obstructive sleep apnea (adult) (pediatric)

== ENCOUNTER → 2024-01-07 08:33 | Outpatient (BNVA) | payer MEDICARE, SELFPAY | PROVIDERS: PCP Internal Medicine; Visit Provider Internal Medicine | DX: Z01.818 Encounter for other preprocedural examination (principal); K08.89 Other specified disorders of teeth and supporting structures; I10 Essential (primary) hypertension; Q87.11 Prader-Willi syndrome; K50.10 Crohn's disease of large intestine without complications; F99 Mental disorder, not otherwise specified; I89.0 Lymphedema, not elsewhere classified; I73.9 Peripheral vascular disease, unspecified; G47.33 Obstructive sleep apnea (adult) (pediatric); Z91.09 Other allergy status, other than to drugs and biological substances | CPT/HCPCS: 93005; 99212 ==

== ENCOUNTER 2024-02-08 11:26 | Outpatient (AMB) | payer MEDICARE, SELFPAY ==
[2024-02-08 11:31] VITALS: BP 120/76; PULSE 62; O2SAT 90; BMI 31.9
--- NOTE | 2024-02-08 11:31 | MHC.PC.OV ---
Vital Signs 02/08/24 11:31 Height 5 ft 5 in Weight 191 lb 8 oz BMI 31.9 BP 120/76 Blood Pressure Location Rt brachial Position Sitting Pulse 62 Pulse Source Pulse Oximeter Pulse Oximetry (%) 90 L Oxygen Delivery Method Room Air Intake Visit Reasons: Annual PE Allergies silver [From TEGADERM AG MESH] Allergy (Unknown, Verified 02/08/24 11:39) RASH transparent dressing Allergy (Unknown, Verified 02/08/24 11:39) skin irritation sensitivity haloperidol [From HALDOL] Adverse Reaction (Intermediate, Verified 02/08/24 11:39) UNKNOWN Tegaderm CHG dressing: Allergy (Unknown, Uncoded 11/22/23 11:34) skin irritation Haldol Adverse Reaction (Unknown, Uncoded 11/22/23 11:34) paradoxical effect Medication List - Last Reconciled 02/08/24 by Galen Xie MD acetaminophen 325 mg PO BID PRN 30 days calcium citrate-vitamin D3 315 mg-5 mcg (200 unit) (Calcium Citrate + D) 1 tab PO QAM 90 days cetirizine (Zyrtec) 10 mg PO .q 8 am 90 days cholecalciferol (vitamin D3) (Vitamin D3) 50 mcg PO .q 8 am 90 days famotidine 40 mg PO BEDTIME fluoxetine 20 mg PO DAILY fluticasone propionate 50 mcg/actuation 1 spray intranasal BEDTIME 30 days folic acid 1 mg PO QAM 90 days losartan 25 mg PO .q 8 am multivitamin 1 tab PO DAILY naltrexone 50 mg PO DAILY olanzapine (Zyprexa) 5 mg PO BEDTIME omega 8-avb-iny-fish oil 300-1,000 mg 1 cap orally in am, noon and pm; 90 days rosuvastatin 5 mg PO .qhs trazodone 100 mg PO BEDTIME ustekinumab (Stelara) 90 mg subcut Q8W Tobacco use date assessed: 02/08/24 Dental Screening Dental Screen Date: 02/08/24 Did you have a dental visit in the last 12 months?: Yes Did you have a dental problem in the last 6 months where you did not have access to dental care?: No Was dental information given to patient?: Patient has dentist HPI Annual PE HPI Details Patient is 28-year-old female came in today for physical exam with the staff member Staff member offer no complaints Patient has psychiatric illness, learning disability and Prader-Willi syndrome along with Crohn's disease She is established with Gastroenterology [facility] psychiatrist Last visit with OBGYN was October of this year Labs were done November, Blood pressure is controlled, patient is tolerating losartan New set of lab order placed to be done in 4 months with visit [facility] Medical History Transaminitis KARLA (obstructive sleep apnea) Somnolence, daytime Morbid obesity Pain of left lower extremity Swelling of left lower extremity Hypertension, essential Mood disorder Developmental delay, mild Vitamin D deficiency Anemia Iron deficiency PTSD (post-traumatic stress disorder) Anxiety Autistic disorder Chronic constipation Acute constipation Colitis Crohn's disease Prader-Willi syndrome Pica in adults Surgical History History of abdominal surgery History of throat surgery Family History Father No problems noted. Mother No problems noted. Social History Household Members: Other Housing: Other Do you presently have visiting nurse or other home services: Yes Alcohol intake: never Comment: No complaints of headache Patient Tobacco Use Status: Never used Tobacco e-Cigarette/Vaping Use: Never Used Second Hand Smoke Exposure: No service: No Current occupational status: disabled Cognitive needs: No Hearing needs: No Vision needs: Yes Female Reproductive History Menstrual Age of Menarche: 11 Questionnaire Thrive Questionnaire Date Thrive assessed: 02/08/24 I am a: Parent/Caregiver What is your living situation today?: I have a steady place to live Within the past 12 months, did the food you bought not last and you didn't have the money to get more?: Never true Within the past 12 months, did you worry whether your food would run out before you got money to buy more?: Never true Do you have trouble paying for medicines?: No Do you have trouble getting transportation to medical appointments?: No Do you have trouble paying your heating and electricity bill?: No Do you have trouble taking care of your child, family member or friend?: No Do you have trouble with day-to-day activities such as bathing, preparing meals, shopping, managing finances, etc.?: No Are you currently unemployed and looking for a job?: No Are you interested in more education?: No Please select the resources that you would like help with: None Currently or been in a relationship where the following occur: No concerns reported THRIVE Score: 0 AUDIT C Alcohol Use Questionnaire (AUDIT-C) 1. How often do you have a drink containing alcohol?: Never 3. How often do you have six or more drinks on one occasion?: Never Total Score: 0 Score Reviewed/Action Taken: Yes BEVERLEY-7 AMB Questionnaire BEVERLEY-7 Date BEVERLEY - 7 assessed: 04/21/23 Source: Developed by Drs. Lucian Garcia, Claudia Diaz, Edi Moore and colleagues, with an educational brian from [employer]. Review of Systems Const Denies chills, Denies fever(s) and Denies headache(s) Eyes Denies blurry vision ENT Denies headache(s), Denies nasal discharge, Denies nasal obstruction, Denies odynophagia and Denies sinus pain Card Denies chest pain at rest and Denies chest pain with activity Resp Denies cough and Denies hemoptysis GI Denies diarrhea, Denies odynophagia, Denies vomiting and Denies hematemesis Reports as per HPI Musc Denies abnormal gait Skin/Breast Reports as per HPI Neuro Denies Abnormal speech present, Denies abnormal gait and Denies headache(s) Endo Reports as per HPI Lyndon/Lymph Reports as per HPI Aller/Immun Reports as per HPI Physical exam (Primary Care) Vital Signs: Last Vital Signs Pulse 62 02/08/24 11:31 BP 120/76 02/08/24 11:31 Pulse Ox 90 L 02/08/24 11:31 Oxygen Delivery Method Room Air 02/08/24 11:31 BMI result Body Mass Index 31.9 Tobacco/Smoking Status: Tobacco use Status Tobacco use date assessed 02/08/24 02/08/24 11:40 Patient Tobacco Use Status Never used Tobacco 02/08/24 11:34 e-Cigarette/Vaping Use Never Used 02/08/24 11:34 Thrive Assessment: Date of Thrive Assessment Date Thrive assessed 02/08/24 02/08/24 11:40 Currently or been in a relationship where the following occur: No concerns reported Const General: cooperative, comfortable and no acute distress HENMT Head: Yes normocephalic and Yes atraumatic Eyes General: appearance normal, both eyes and all related structures Pupils: Equal, round and reactive pupils present EOM: EOMs intact bilaterally Neck Neck: Yes supple and No lymphadenopathy Thyroid: Thyroid normal Lymphatic: no lymphadenopathy noted Chest Breast/axilla palpation: normal palpation of the breasts Resp Effort & Inspection: normal respiratory effort and able to speak in complete sentences Auscultation: clear to auscultation bilaterally Cardio Heart sounds: S1 normal heart sound present and S2 normal heart sound present GI Palpation (GI): Soft to palpation and nontender Auscultation: normal bowel sounds General: Yes no CVA tenderness Back/Spine/Pelvis Back: no CVA tenderness Skin General skin exam: elasticity normal and turgor normal Neuro General: gait normal Cranial nerves: Yes Equal, round and reactive pupils present Speech: No Abnormal speech present Coordination: Romberg test negative Extrem General: Yes normal exam except as noted Coding Level of Care Code Est Pt Level 3 (57445) Est Pt Prev Care 18-39y(60280) Diagnoses Encounter for general adult medical examination with abnormal findings Z00.01 Hypertension, essential I10 Prader-Willi syndrome Q87.11 Crohn's disease of large intestine without complication K50.10 Gastrointestinal tract location: large intestine Digestive disease complication type: without complication Chronic GERD K21.9 KARLA (obstructive sleep apnea) G47.33 Moderate episode of recurrent major depressive disorder F33.1 Active/Remission status: currently active Major depression episode severity: moderate Autistic disorder F84.0 Environmental allergies Z91.09 Peripheral vascular disease I73.9 Lymphedema I89.0 Assessment & Plan Assessment & Plan (1) Encounter for general adult medical examination with abnormal findings: Code(s): Z00.01 - Encounter for general adult medical examination with abnormal findings Category: Medical (2) Hypertension, essential: Code(s): I10 - Essential (primary) hypertension Category: Medical (3) Prader-Willi syndrome: Comment: Patient has developmental disorder secondary to Prader Willi Syndrome Code(s): Q87.11 - Prader-Willi syndrome Category: Medical (4) Crohn's disease: Code(s): K50.90 - Crohn's disease, unspecified, without complications Category: Medical Qualifiers: Gastrointestinal tract location: large intestine Digestive disease complication type: without complication Qualified Code(s): K50.10 - Crohn's disease of large intestine without complications (5) Chronic GERD: Code(s): K21.9 - Gastro-esophageal reflux disease without esophagitis Category: Medical (6) KARLA (obstructive sleep apnea): Comment: SHE IS A CONFIRMED CASE OF SEVERE OBSTRUCTIVE SLEEP APNEA. CPAP TITRATION STUDY DETERMINED THAT SHE NEEDS BY BI-LEVEL CPAP WITH PRESSURE SETTING 20/16 CM. SHE IS NOT ABLE TO USE THE CPAP SHE BITES ON THE MASK AND EATS THE PLASTIC CHIPS, SIMILARLY SHE ALSO BITES ON THE NASAL CANNULA AND CANNOT USE THE OXYGEN. UNDER THE CIRCUMSTANCES THERE IS NO OTHER PRACTICAL SOLUTION AT THIS TIME. EVANTUALLY AT SOME POINT SHE MAY NEED PERMANENT TRACHEOSTOMY FOR TREATMENT OF HER KARLA. HER GRADUAL WEIGHT LOSS EVEN THOUGH IT IS IN HIS SMALL AMOUNT IS QUITE ENCOURAGING. Code(s): G47.33 - Obstructive sleep apnea (adult) (pediatric) Category: Medical (7) Major depression, recurrent: Code(s): F33.9 - Major depressive disorder, recurrent, unspecified Category: Medical Qualifiers: Active/Remission status: currently active Major depression episode severity: moderate Qualified Code(s): F33.1 - Major depressive disorder, recurrent, moderate (8) Autistic disorder: Code(s): F84.0 - Autistic disorder Category: Medical (9) Environmental allergies: Code(s): Z91.09 - Other allergy status, other than to drugs and biological substances Category: Medical (10) Peripheral vascular disease: Code(s): I73.9 - Peripheral vascular disease, unspecified Category: Medical (11) Lymphedema: Code(s): I89.0 - Lymphedema, not elsewhere classified Category: Medical Plan Patient is 28-year-old female came in today for physical exam with the staff member Staff member offer no complaints Patient has psychiatric illness, learning disability and Prader-Willi syndrome along with Crohn's disease She is established with Gastroenterology [facility] psychiatrist Last visit with OBGYN was October of this year Labs were done November, Blood pressure is controlled, patient is tolerating losartan New set of lab order placed to be done in 4 months with visit Orders: Orders Complete Blood Count Auto Diff 3 Months F33.1 - Major depressive disorder, recurrent, moderate, I10 - Essential (primary) hypertension, I73.9 - Peripheral vascular disease, unspecified, I89.0 - Lymphedema, not elsewhere classified, K50.10 - Crohn's disease of large intestine without complications, Z91.09 - Other allergy status, other than to drugs and biological substances TSH reflex Free T4 3 Months F33.1 - Major depressive disorder, recurrent, moderate, I10 - Essential (primary) hypertension, I73.9 - Peripheral vascular disease, unspecified, I89.0 - Lymphedema, not elsewhere classified, K50.10 - Crohn's disease of large intestine without complications, Z91.09 - Other allergy status, other than to drugs and biological substances Hemoglobin A1c 3 Months F33.1 - Major depressive disorder, recurrent, moderate, I10 - Essential (primary) hypertension, I73.9 - Peripheral vascular disease, unspecified, I89.0 - Lymphedema, not elsewhere classified, K50.10 - Crohn's disease of large intestine without complications, Z91.09 - Other allergy status, other than to drugs and biological substances Comprehensive Met. Panel 3 Months F33.1 - Major depressive disorder, recurrent, moderate, I10 - Essential (primary) hypertension, I73.9 - Peripheral vascular disease, unspecified, I89.0 - Lymphedema, not elsewhere classified, K50.10 - Crohn's disease of large intestine without complications, Z91.09 - Other allergy status, other than to drugs and biological substances LDL Cholesterol Direct 3 Months F33.1 - Major depressive disorder, recurrent, moderate, I10 - Essential (primary) hypertension, I73.9 - Peripheral vascular disease, unspecified, I89.0 - Lymphedema, not elsewhere classified, K50.10 - Crohn's disease of large intestine without complications, Z91.09 - Other allergy status, other than to drugs and biological substances
== END 2024-02-08 14:08 | disposition home or self-care (01) ==
PROVIDERS: PCP Internal Medicine; Visit Provider Internal Medicine
DX: I10 Essential (primary) hypertension (principal); K50.10 Crohn's disease of large intestine without complications; F33.1 Major depressive disorder, recurrent, moderate; I73.9 Peripheral vascular disease, unspecified; Q87.11 Prader-Willi syndrome; K21.9 Gastro-esophageal reflux disease without esophagitis; G47.33 Obstructive sleep apnea (adult) (pediatric); F84.0 Autistic disorder; Z91.09 Other allergy status, other than to drugs and biological substances; I89.0 Lymphedema, not elsewhere classified

== ENCOUNTER → 2024-02-08 11:26 | Outpatient (BNVA) | payer MEDICARE, SELFPAY | PROVIDERS: PCP Internal Medicine; Visit Provider Internal Medicine | DX: Z00.01 Encounter for general adult medical examination with abnormal findings (principal); I10 Essential (primary) hypertension; Q87.11 Prader-Willi syndrome; K50.10 Crohn's disease of large intestine without complications; K21.9 Gastro-esophageal reflux disease without esophagitis; G47.33 Obstructive sleep apnea (adult) (pediatric); F33.1 Major depressive disorder, recurrent, moderate; F84.0 Autistic disorder; I73.9 Peripheral vascular disease, unspecified; I89.0 Lymphedema, not elsewhere classified; Z91.09 Other allergy status, other than to drugs and biological substances | CPT/HCPCS: 99212 ==

== ENCOUNTER 2024-02-22 09:57 | Outpatient (AMB) | payer MEDICARE, SELFPAY ==
--- NOTE | 2024-02-22 10:10 | AM.OFFVISNUR ---
Intake Visit Reasons: Stelara Allergies silver [From TEGADERM AG MESH] Allergy (Unknown, Verified 02/08/24 11:39) RASH transparent dressing Allergy (Unknown, Verified 02/08/24 11:39) skin irritation sensitivity haloperidol [From HALDOL] Adverse Reaction (Intermediate, Verified 02/08/24 11:39) UNKNOWN Tegaderm CHG dressing: Allergy (Unknown, Uncoded 11/22/23 11:34) skin irritation Haldol Adverse Reaction (Unknown, Uncoded 11/22/23 11:34) paradoxical effect Nursing Note STELARA INJECTION IS PATIENT SUPPLIED FROM [facility] LOT: [id number], EXP: 05/2026 Office Procedures Flu Questionnaire Does the patient have a severe egg allergy?: No Does the patient have severe life threatening allergies?: No Does the patient have a fever or illness today?: No Has the patient ever had Guillain-Layton Syndrome?: No Has the patient ever had any past reaction to a flu shot?: No Office Meds Stelara 90 mg/mL subcutaneous syringe Performing Provider: ROMEL Del Rio Performing Location: [facility] Administered by: Leatha Evans RN on 02/22/24 10:10 Dose Route Admin Location Dispensed Lot Number Expiration Date [facility] Division Roadmaster 90 mg subcut Left Upper Outer Arm (SC) 1 mL [id number] 06/26/26 [employer] Immunizations Engerix-B (PF) 20 mcg/mL intramuscular suspension Performing Provider: ROMEL Del Rio Performing Location: [facility] [place] Gastro[facility]ology [facility] Administered by: Leatha Evans RN on 02/22/24 10:10 Dose Route Admin Location Dispensed Lot Number Expiration Date [place] Division Roadmaster 1 mL IM Left Deltoid 1 mL [id number] 03/05/26 80564-569-12 [employer] VIS Given Date VIS Provided VIS Publication Date 02/22/24 Single Vaccine 22 Eligibility Eligibility Date Funding Source Not [facility] Eligible 02/22/24 Private Fluarix Triv [id number] (PF) 45 mcg (15 mcg x 3)/0.5 mL IM syringe Performing Provider: ROMEL Del Rio Performing Location: [facility] [place] Gastroenterology Services Administered by: Leatha Evans RN on 02/22/24 10:10 Dose Route Admin Location Dispensed Lot Number Expiration Date NDC Division Roadmaster 0.5 mL IM Left Deltoid 0.5 mL [id number] 09/25/24 35976-252-09 [employer] VIS Given Date VIS Provided VIS Publication Date 02/22/24 Single Vaccine 20 Eligibility Eligibility Date Funding Source Not [facility] Eligible 02/22/24 Private Assessment & Plan Assessment & Plan Orders: Orders Influenza [id number] Immunization Today Z23 - Encounter for immunization Hepatitis B Adult Immunization Today Z23 - Encounter for immunization AMB Ustekinumab Injection Today K50.10 - Crohn's disease of large intestine without complications Medications: New Engerix-B (PF) (hepatitis B virus vacc.rec(PF)) 1 mL IM ONCE 1 mL 0RF NS Z23 - Encounter for immunization Fluarix Triv [id number] (PF) (flu vacc [id number] 6mos up(PF)) 0.5 mL IM ONCE 0.5 mL 0RF NS Z23 - Encounter for immunization Stelara (ustekinumab) 90 mg subcut ONCE 1 mL 0RF NS K50.10 - Crohn's disease of large intestine without complications
== END 2024-02-22 10:15 | disposition home or self-care (01) ==
PROVIDERS: PCP Internal Medicine; Visit Provider Nurse Practitioner Family
DX: K50.10 Crohn's disease of large intestine without complications (principal); Z23 Encounter for immunization

== ENCOUNTER → 2024-02-22 09:57 | Outpatient (BNVA) | payer MEDICARE, SELFPAY | PROVIDERS: PCP Internal Medicine; Visit Provider Nurse Practitioner Family | DX: K50.10 Crohn's disease of large intestine without complications (principal); Z23 Encounter for immunization | CPT/HCPCS: 90471; 90656; 90746; 96372; 99211; J3357 ==

== ENCOUNTER 2024-04-13 10:47 | Outpatient (REF) | payer MEDICARE, SELFPAY ==
[2024-04-13 13:04] LABS: MANUAL DIFF FLAG NO
[2024-04-13 13:09] LABS: Basophils Percent Auto 0.5 % (0-2); Eosinophils Absolute Auto 0.1 X10*3/uL (0.0-0.4); Eosinophils Percent Auto 2.2 % (0-4); Hematocrit 39.9 % (37.0-47.0); Hemoglobin 13.3 g/dl (12.0-16.0); Imm Gran Abs Auto 0.02 X10*3/uL (0.00-0.03); Imm Gran Pct Auto 0.3 % (0.0-0.4); Lymphocytes Absolute Auto 1.2 X10*3/uL (1.2-4.9); Lymphocytes Percent Auto 20.1 % (20-40); Mean Corpuscular HGB Conc 33.3 g/dl (31.0-35.0); Mean Platelet Volume 11.9 fL (9.4-12.3); Monocytes Absolute Auto 0.4 X10*3/uL (0.1-1.2); Monocytes Percent Auto 6.3 % (2-11); Neutrophils Absolute Auto 4.2 x10*3/uL (2.0-8.3); Neutrophils Percent Auto 70.6 % (45-73); Platelet Count 162 X10*3/uL (160-400); Red Blood Count 4.75 X10*6/uL (4.20-5.50); Red Cell Distribution Width 13.3 % (11.0-16.0); White Blood Count 5.9 X10*3/uL (4.8-10.8)
[2024-04-13 13:21] LABS: Estimated Average Glucose 108 mg/dL; Hemoglobin A1C 122.7877 umol/L; Hemoglobin A1c % 5.4 % (<6.0); Total Hemoglobin (HGBA1C) 3480.2449 umol/L
[2024-04-13 13:30] LABS: Alanine Aminotransferase 19 U/L (0-31); Albumin Level 4.1 g/dL (3.5-5.0); Alkaline Phosphatase 55 U/L (39-117); Anion Gap 10 (12-20); Aspartate Amino Transferase 29 U/L (5-31); Bilirubin Total 0.3 mg/dL (0.0-1.0); Blood Urea Nitrogen 15 mg/dL (9-16); Calcium 9.7 mg/dL (8.4-10.2); Carbon Dioxide 30 mmol/L (22-29); Chloride 105 mmol/L (96-108); Estimated Glomerular Filt Rate > 60; Glucose Random 73 mg/dL (60-115); Potassium 4.4 mmol/L (3.3-5.1); Sodium 141 mmol/L (135-145); Total Protein 7.9 g/dL (6.5-8.0)
[2024-04-13 13:50] LABS: TSH reflex Free T4 0.37 uIU/mL (0.32-4.0)
[2024-04-15 06:09] LABS: LDL Cholesterol Direct 62 mg/dL (<100)
== END 2024-04-13 10:48 | disposition home or self-care (01) ==
LOC: HO.HMGCLDS 10:47
PROVIDERS: PCP Internal Medicine; Visit Provider Internal Medicine
DX: I10 Essential (primary) hypertension (principal); K50.10 Crohn's disease of large intestine without complications; F33.1 Major depressive disorder, recurrent, moderate; Z91.09 Other allergy status, other than to drugs and biological substances; I73.9 Peripheral vascular disease, unspecified; I89.0 Lymphedema, not elsewhere classified; Z13.1 Encounter for screening for diabetes mellitus
CPT/HCPCS: 36415; 80053; 83036; 83721; 84443; 85025

== ENCOUNTER 2024-04-18 09:57 | Outpatient (AMB) | payer MEDICARE, SELFPAY ==
--- NOTE | 2024-04-18 09:52 | AM.OFFVISNUR ---
Intake Visit Reasons: Stelara Allergies silver [From TEGADERM AG MESH] Allergy (Unknown, Verified 02/08/24 11:39) RASH transparent dressing Allergy (Unknown, Verified 02/08/24 11:39) skin irritation sensitivity haloperidol [From HALDOL] Adverse Reaction (Intermediate, Verified 02/08/24 11:39) UNKNOWN Tegaderm CHG dressing: Allergy (Unknown, Uncoded 11/22/23 11:34) skin irritation Haldol Adverse Reaction (Unknown, Uncoded 11/22/23 11:34) paradoxical effect Nursing Note Lot # [id number] Medication: Nomanlara [facility]: #[id number] Expiration date: 08/2026 [employer] Coordinator: Pierce Dose?90MG/ML Route: Subcut Location given: Left arm, Upper (Outer) Assessment & Plan Assessment & Plan (1) Crohn's disease: Code(s): K50.90 - Crohn's disease, unspecified, without complications Category: Medical Qualifiers: Gastrointestinal tract location: large intestine Digestive disease complication type: without complication Qualified Code(s): K50.10 - Crohn's disease of large intestine without complications
--- OUTSIDE RECORDS SUMMARY | 2024-04-18 11:16 | XMS_ITS | Data Portability ---
Author Organization RASHIDA Kline [facility], [address] Address [address] [place] [address] Care Team Providers Care Machine I Cutter Name Role Phone GALE HERRON Primary Care Provider Assessment No assessment recorded. Plan of Treatment Reminders Order Date Submit Date Provider Last Modified By Organization Details Last Modified Time Details Appointments None recorded. Lab None recorded. Referral emergency medicine referral - patient was given water bottle to drink water . Have behavior problems and try to swallow bottle cap lodge in her throat . risk of choking. not co-operati ve and will not allow anybody to take it out. 2022 023 [facility] Emergency Room, [address] [place], [address], 3 11:14:58 Procedures None recorded. Surgeries None recorded. Imaging None recorded. Medication Orders None recorded. Patient TargetsNo targets recorded. Patient Instructions Encounter Date Encounter Id Patient Instructions Last Modified By Organization Details Last Modified Time 07/05/2022 [id number] How do you know when anxiety is a medical problem? Everyone feels anxious or nervous once in a while. That is normal. But being extremely anxious or worried on most days for 6 months or longer is not normal. This is called generalized anxiety disorder. The disorder can make it hard to do everyday tasks. Generalized anxiety disorder is just 1 anxiety disorder. There are others, such as panic disorder and phobias. This article focuses on generalized anxiety disorder. What are the symptoms of extreme or severe anxiety? People with extreme or severe anxiety feel very worried or on edge much of the time. They can have trouble sleeping or forget things. Plus, they can have physical symptoms. For instance, people with severe anxiety often feel very tired and have tense muscles. Some get stomach aches or feel chest tightness. Should I see a doctor or nurse? See your doctor or nurse if you: ? Are more anxious than you think is normal ? Get very anxious about things that other people handle more easily Your doctor or nurse can ask you questions that are designed to measure a person's anxiety level. If you do have a problem with anxiety, there are different treatments that can help. Is there anything I can do on my own to feel better? Yes. It might help to: ? Move your body ? Exercise can help many people feel less anxious. Even gentle forms of exercise, like walking, are good for your health. ? Limit or avoid caffeine ? Cut down on or stop drinking coffee and other sources of caffeine. Caffeine can make anxiety worse. ? Find healthy ways to manage stress ? Some people find that it helps to try something called mindfulness-based stress reduction. This involves going to a group program to practice relaxation and meditation. Other people find that activities like yoga, bhavik chi, or meditation help them manage their anxiety. ? Eat a healthy diet ? Eating plenty of vegetables, fruits, and whole grains can help with your overall health. Try to limit or avoid alcohol. How is anxiety treated? Treatments include: ? Psychotherapy ? Psychotherapy involves meeting with a mental health counselor to talk about your feelings, relationships, and worries. Therapy can help you find new ways of thinking about your situation so that you feel less anxious. In therapy, you might also learn new skills to reduce anxiety. ? Medicines ? Medicines used to treat depression can relieve anxiety, too, even in people who are not depressed. Your doctor or nurse will decide which medicines are best for your situation. Some people have psychotherapy and take medicines at the same time. There is no reason to feel embarrassed about getting treatment for anxiety. Anxiety is a common problem. It affects all kinds of people. Remember that it might take a little while to find the right treatment. People respond in different ways to medicines and therapy, so you might need to try a few approaches before you find the one that helps you most. The harris is to not give up and to let your doctor or nurse know how you feel along the way. Are there herbal treatments I can take? Makers of herbal drugs sometimes claim that their products relieve anxiety. For example, herbs called kava kava and valerian are sold as treatments for anxiety. But there is no evidence that these treatments work. Plus, kava kava has been linked with serious liver damage. It might not be safe. What if I want to get ? If you take medicines to treat anxiety, speak to your doctor before you start trying to get . Some of the medicines used to treat anxiety can cause problems for a developing baby. Because of this, you might need to switch medicines before you get . What will my life be like? People with anxiety disorders often have to deal with some anxiety for the rest of their life. For some, anxiety comes and goes, but gets worse during times of stress. The good news is, many people find effective treatments or ways to deal with their anxiety. Not available 07/05/2022 11:10:03 We recommend you get a repeat urinalysis in 2 weeks to ensure that any abnormalities have resolved. If urine abnormalities persist, you will likely need further testing or treatment. We will contact you within 3 to 5 days with the results of your lab test. If you have not heard back from us within that time frame, please feel free to contact our office regarding your results. Go to the Emergency Department immediately if your symptoms worsen or if you develop new symptoms that concern you. Drink plenty of fluids You should follow-up with your PCP in 4-5 days, or at any time if your condition does not improve or worsens. Any acute change should prompt a visit to the nearest Emergency Department. Not available 07/05/2022 11:09:55 Reason for Referral Emergency Medicine Referral for Foreign body in pharynx patient was given water bottle to drink water . Have behavior problems and try to swallow bottle cap patient was given water bottle to drink water . Have behavior problems and try to swallow bottle cap lodge in her throat . risk of choking. not co-operative and will not allow anybody to take it out. Referring Physician: Rishi Cohen, Urgent Care, Encounter Date: 07/05/2022 Problems Name Problem SNOMED Code Status Onset Date Resolution Date Notes Provider Name and Address Organization Details Recorded Time Crohn's disease 48336061 Active 2022 Celina sims PA - [facility] 3 10:40:54 Hypertensive disorder 15422139 Active 2022 Celina sims PA - [facility] 3 10:41:11 Anxiety 52149602 Active 2022 Celina sims PA - [facility] 3 10:41:27 Problem Notes None recorded. Medical Equipment None Reported. Allergies Allergen ID Allergen Name Allergen Category Reaction Reaction Severity Criticality Documentation Date Start Date Code Code System Note Provider Name and Address Organization Details Recorded Time 059876 Haldol medicatio n Not available Not available Not available 07/05/2022 00851 9 RxNorm Celina sims PA - [facility] 3 10:38:19 313746 Tegaderm medicatio n Not available Not available Not available 07/05/2022 Celina sims PA - [facility] 3 10:38:24 Medications Name Sig Start Date Stop Date Status Note LastModified by Organization Details LastModified Time silver sulfadiazine 1 % topical cream APPLY A 1.5MM IN THICKNESS TOPICALLY DAILY NEEDED FOR VAGINAL ITCHING active Not Available Not Available No t Available polyethylene glycol 3350 17 gram oral powder packet active Not Available Not Available Not Available fluconazole 150 mg tablet PLEASE SEE ATTACHED FOR DETAILED DIRECTIONS active Not Available Not Available N ot Available famotidine 40 mg tablet active Not Available Not Available Not Available atenolol 25 mg tablet active Not Available Not Available No t Available cephalexin 500 mg capsule TAKE 1 CAPSULE BY MOUTH 4 TIMES A DAY FOR 10 DAYS active Not Available Not Available Not Available cephalexin 250 mg/5 mL oral suspension active Not Available Not Available N ot Available mercaptopuri ne 50 mg tablet active Not Available Not Available Not Available sertraline 25 mg tablet active Not Available Not Available Not Available Banophen 25 mg capsule TAKE 1 CAPSULE BY MOUTH 3 TIMES A DAY NEEDED FOR ITCHING active Not Available Not Available Not Available folic acid 1 mg tablet active Not Available Not Available No t Available hydroxyzine HCl 25 mg tablet active Not Available Not Available Not Available mupirocin 2 % topical ointment active Not Available Not Available Not Available ibuprofen 600 mg tablet TAKE 1 TABLET BY MOUTH THREE TIMES A DAY active Not Available Not Available Not Available fluoxetine 20 mg capsule active Not Available Not Available Not Available fluticasone propionate 50 mcg/actuatio n nasal spray,suspen harris active Not Available Not Available Not Available Calcium Citrate + D 315 mg-5 mcg (200 unit) tablet active Not Available Not Available Not Available aripiprazole 5 mg tablet active Not Available Not Available Not Available FeroSul 325 mg (65 mg iron) tablet active Not Available Not Available Not Available cholecalcife rol (vitamin D3) 50 mcg (2,000 unit) tablet active Not Available Not Available Not Available Stelara 90 mg/mL subcutaneous syringe active Not Available Not Available Not Available Vitals Date Recorded Body height Provider Name an d Address Organization Details Last Updated DateTime 07/05/2022 152.4 cm Celina Cabrera PA - [facility] 07/05/2022 10:42:41 Date Recorded Pain severity - 0-10 verbal numeric rating [Score] - Reported Provider Name and Address Organization Details Last Updated DateTime 07/05/2022 10 Celina Cabrera PA - [facility] 07/05/2022 10:43:20 Date Recorded Body temperature Provider Name a nd Address Organization Details Last Updated DateTime 07/05/2022 97.3 [degF] Celina Cabrera PA - [facility] 07/05/2022 10:45:07 Date Recorded Oxygen saturation Oxygen saturation in Arterial blood by Pulse oximetry Provider Name and Address Organization Details Last Updated DateTime 07/05/2022 97 % 97 % Celina Cabrera PA - [facility] 07/05/2022 10:45:23 Date Recorded Heart rate Provider Name an d Address Organization Details Last Updated DateTime 07/05/2022 62 /min Celina Cabrera PA - [facility] 07/05/2022 10:45:25 Date Recorded Respiratory rate Provider Name a nd Address Organization Details Last Updated DateTime 07/05/2022 18 /min Celina Cabrera PA - [facility] 07/05/2022 10:45:28 Date Recorded Systolic blood pressure Diastolic blood pressure Provider Name and Address Organization Details Last Updated DateTime 07/05/2022 130 mm[Hg] 70 mm[Hg] Celina Cabrera PA - [facility] 07/05/2022 10:48:04 Social History Question Answer Notes LastModified by Organizat ion Details LastModified Time Tobacco Smoking Status Never Smoker Celina [facility] 07/05/2022 10:41:44 What Is Your Level Of Alcohol Consumption? None Information not available 07/05/2022 Do You Use Any Illicit Or Recreational Drugs? No Information not available 07/05/2022 Have You Recently Traveled Abroad? No Information not available 07/05/2022 Do You Or Have You Ever Used Any Other Forms Of Tobacco Or Nicotine? No Information not available 07/05/2022 Sex: Unknown Functional Status None recorded. Mental Status None recorded. Family History Relationship Description Onset Age of this Age Resolved Age Notes LastModified by Organization Details LastModified Time Father No current problems or disability [email or web address] Not available 07/05 10:41:30 Mother No current problems or disability [email or web address] Not available 07/05 10:41:30 Medical History No medical history recorded. Gynecological HistoryNo gynecological history recorded. Obstetrics History GPAL:G 0 P 0 0 0 0 Past Encounters Encounter ID Performer Location Encounter Start Date Encounter Closed Date Diagnosis/Indication Diagnosis SNOMED-CT Code Diagnosis ICD10 Code Diagnosis Note [id number] [address] [place] [address] 11/21/2018 11:59:56 11/21/2018 12:40:12 [id number] [address] [place] [address] 01/12/2019 09:59:09 01/12/2019 10:39:14 [id number] [address] [place] [address] 09/18/2021 16:11:26 09/18/2021 17:00:09 [id number] Rishi Cohen NP [address] [place] [address] 07/05/2022 09:20:30 07/05/2022 11:14:52 Acute urinary tract infection 249123781 N39.0 Unable to obtain urine sample. Foreign mario dy in pharynx 90837394 T17.208A Health Concerns Section Related Observation LastModified by Organization Detai ls LastModified Time None Recorded Concern Status LastModified by Organization Details LastModified Time None Recorded Advance Directives Directive None Recorded Payers Encounter Date Sequence Insurance Name Policy Number Policy Ko Covered Member ID Ko Member ID Guarantor Name 11/21/2018 1 [place] [facility] [employer] Tiki M Sharp [id number] Tiki Sharp 11/21/2018 2 [place] Tiki Sharp [id number] Tiki Sharp 01/12/2019 1 MEDICARE B-[place] [facility] Tiki M Sharp [id number] Tiki Sharp 01/12/2019 2 [place] Tiki Sharp [id number] Tiki Sharp 09/18/2021 1 [place] [facility] Tiki M Sharp [id number] Tiki Sharp 09/18/2021 2 [place] Tiki Sharp [id number] Tiki Sharp 07/05/2022 1 [place] [facility] Tiki M Sharp [id number] Tiki Sharp 07/05/2022 2 [place] Tiki Sharp [id number] Tiki Sharp Notes Date Note Type Note Provider Name and Address Organization Details Recorded Time 3 text/html CoughReported bypatient.source of patient informationInformation obtained from patient; Patient arrived at Urgent Care ambulatory; learning styles: auditory Severity:improving Timing:improving Context:Patient denies vaping; non-smoker Associated Symptoms:no fever; no chills; no chest pain; no heartburn; no nausea; no vomiting; no edema; no agitation; no wheezing; no post nasal dripUrinary Complaint FemaleReported bypatient.source of patient informationInformation obtained from patient; Patient arrived at Urgent Care ambulatory UTI Symptoms:no blood in the urine; no vaginal discharge; no urgency; no pain in the flank; no fever/chills; no incontinence; no recurrent UTI; no known exposure to STD;pain during urination;urinary frequency Duration:2 days Modifying Factors:nothing gives reliefNotes:frequency and urgency x 2 day. denies any fever or fever with chills, denies any History of renal stone or bladder issues. Patient has behaviour problems brought in by two attendants from custodial. accidently try to swallow water bottle cap and will not allow anybody to take it out. Also might have UTI affecting her Mood. Rishi Cohen NP [address] [place], [address], PA - [facility] 07/05/2022 11:21:53 OBGyn Episode No OBEpisode recorded.
== END 2024-04-18 10:14 | disposition home or self-care (01) ==
PROVIDERS: PCP Internal Medicine; Visit Provider Nurse Practitioner Family
DX: K50.10 Crohn's disease of large intestine without complications (principal)

== ENCOUNTER → 2024-04-18 09:57 | Outpatient (BNVA) | payer MEDICARE, SELFPAY | PROVIDERS: PCP Internal Medicine; Visit Provider Nurse Practitioner Family | DX: K50.10 Crohn's disease of large intestine without complications (principal) | CPT/HCPCS: 96372; 99211; J3357 ==

== ENCOUNTER 2024-06-12 10:07 | Outpatient (AMB) | payer MEDICARE, SELFPAY ==
--- NOTE | 2024-06-12 10:19 | AM.OFFVISNUR ---
Intake Visit Reasons: Stelara & Hep B #3 Allergies silver [From TEGADERM AG MESH] Allergy (Unknown, Verified 02/08/24 11:39) RASH transparent dressing Allergy (Unknown, Verified 02/08/24 11:39) skin irritation sensitivity haloperidol [From HALDOL] Adverse Reaction (Intermediate, Verified 02/08/24 11:39) UNKNOWN Tegaderm CHG dressing: Allergy (Unknown, Uncoded 11/22/23 11:34) skin irritation Haldol Adverse Reaction (Unknown, Uncoded 11/22/23 11:34) paradoxical effect Nursing Note Lot # [id number] Medication: Stelara [facility] #99491-427-35 Expiration date:09/25/2026 Roper Operator: Flaconi Dose: 90mg/1mL Route: Subcut Location given: Left Arm, Upper, Outer Office Meds Stelara 90 mg/mL subcutaneous syringe Performing Provider: ROMEL Del Rio Performing Location: [facility] Administered by: Leatha Evans RN on 06/12/24 10:19 Dose Route Admin Location Dispensed Lot Number Expiration Date [facility] Roper Operator 90 mg subcut Left arm, Upper, Outer 1 mL [id number] 09/25/26 64963-352-71 Integrity Tracking Comments: Patient own, brought in Immunizations Engerix-B (PF) 20 mcg/mL intramuscular suspension Performing Provider: ROMEL Del Rio Performing Location: [facility] Administered by: Leatha Evans RN on 06/12/24 10:19 Dose Route Admin Location Dispensed Lot Number Expiration Date [facility] Roper Operator 1 mL IM Right Deltoid 1 mL [id number] 05/11/26 49419-830-94 [place] VIS Given Date VIS Provided VIS Publication Date 06/12/24 Single Vaccine 22 Eligibility Eligibility Date Funding Source Not [facility] Eligible 06/12/24 Private Assessment & Plan Assessment & Plan Orders: Orders AMB Ustekinumab Injection Today K50.10 - Crohn's disease of large intestine without complications Hepatitis B Adult Immunization Today Z23 - Encounter for immunization Medications: New Stelara (ustekinumab) 90 mg subcut ONCE 1 mL 0RF NS K50.10 - Crohn's disease of large intestine without complications Engerix-B (PF) (hepatitis B virus vacc.rec(PF)) 1 mL IM ONCE 1 mL 0RF NS Z23 - Encounter for immunization Coding Level of Care Code Established Pt Est Pt Level 1 (05171) Patient Type Established Medical Decision Making Straight Forward
--- OUTSIDE RECORDS SUMMARY | 2024-06-12 11:19 | XMS_ITS | Data Portability ---
Author Organization RASHIDA Kline s, [address] Address [address] [place] [address] Care Team Providers Care Pt Escort Name Role Phone GALE HERRON Primary Care [...] anybody to take it out. 2022 023 [facility] Emergency Room, [address] [place], [address], 3 11:14:58 Procedures None recorded. Surgeries None recorded. Imaging None recorded. Medication Orders None recorded. Patient TargetsNo targets recorded. Patient Instructions Encounter Date Encounter Id Patient Instructions Last Modified By Organization Details Last Modified Time 07/05/2022 [id number] How do you know when anxiety is [...] Address Organization Details Recorded Time Crohn's disease 86033715 Active 2022 Celina sims, PA - [facility] 3 10:40:54 Hypertensive disorder 37413614 Active 2022 Celina sims, PA - [facility] 3 10:41:11 Anxiety 68288394 Active 2022 Celina sims PA - [facility] 3 10:41:27 Problem Notes None recorded. Medical Equipment None Reported. Allergies Allergen ID Allergen Name Allergen Category Reaction Reaction Severity Criticality Documentation Date Start Date Code Code System Note Provider Name and Address Organization Details Recorded Time 980112 Haldol medicatio n Not available Not available Not available 07/05/2022 48544 9 RxNorm Celina sims PA - [facility] 3 10:38:19 477718 Tegaderm medicatio n Not available Not available Not available 07/05/2022 31428 UNK Celina sims PA - [facility] 3 [...] Not Available Vitals Date Recorded Body height Pain severity - 0-10 verbal numeric rating [Score] - Reported Body temperature Oxygen saturation Oxygen saturation in Arterial blood by Pulse oximetry Heart rate Respiratory rate Systolic blood pressure Diastolic blood pressure Provider Name and Address Organization Details Last Updated DateTime 3 152.4 cm 10 97.3 [degF] 97 % 97 % 62 /min 18 /min 130 mm[Hg] 70 mm[Hg] Celina [facility] 3 10:48:04 Social History Question Answer Notes LastModified by Organizat ion Details LastModified Time Tobacco Smoking Status Never Smoker Celina sims [facility] 07/05/2022 10:41:44 What Is Your Level Of [...] SNOMED-CT Code Diagnosis ICD10 Code Diagnosis Note [id number] [address] [facility] [place] [address] 11/21/2018 11:59:56 11/21/2018 12:40:12 [id number] [address] [facility] [place] [address] 01/12/2019 09:59:09 01/12/2019 10:39:14 [id number] [address] [facility] [place] [address] 09/18/2021 16:11:26 09/18/2021 17:00:09 [id number] Rishi Cohen NP [address] [facility] [place] [address] 07/05/2022 09:20:30 07/05/2022 11:14:52 Acute urinary tract infection 185848764 N39.0 Unable to obtain urine sample. Foreign mario dy in pharynx 60569465 T17.208A Health Concerns Section Related Observation LastModified by Organization Detai ls LastModified Time None Recorded Concern Status LastModified by Organization Details LastModified Time None Recorded Advance Directives Directive None Recorded Payers Encounter Date Sequence Insurance Name Policy Number Policy Ko Covered Member ID Ko Member ID Guarantor Name 11/21/2018 1 [place] [employer] Tiki M Sharp [id number] Tiki Sharp 11/21/2018 2 [place] Tiki Sharp [id number] Tiki Sharp 01/12/2019 1 [place] [employer] Tiki M Sharp [id number] Tiki Sharp 01/12/2019 2 [place] Tiki Sharp [id number] Tiki Sharp 09/18/2021 1 [place] [employer] Tiki M Sharp [id number] Tiki Sharp 09/18/2021 2 [place] Tiki Sharp [id number] Tiki Sharp 07/05/2022 1 [place] [facility] Tiki Sharp [id number] Tiki Sharp 07/05/2022 2 [place] [facility] Tiki Sharp [id number] Tiki [facility] Notes Date Note Type Note Provider Name [...] problems brought in by two attendants from prison. accidently try to swallow water bottle cap and will not allow anybody to take it out. Also might have UTI affecting her Mood. Rishi Cohen NP [address] [place], [address], [place] - [facility] 07/05/2022 11:21:53 OBGyn Episode No OBEpisode recorded.
== END 2024-06-12 10:23 | disposition home or self-care (01) ==
LOC: HO.HGI 10:08
PROVIDERS: PCP Internal Medicine; Visit Provider Nurse Practitioner Family
DX: K50.10 Crohn's disease of large intestine without complications (principal); Z23 Encounter for immunization

== ENCOUNTER → 2024-06-12 10:07 | Outpatient (BNVA) | payer MEDICARE, SELFPAY | PROVIDERS: PCP Internal Medicine; Visit Provider Nurse Practitioner Family | DX: Z23 Encounter for immunization (principal); K50.10 Crohn's disease of large intestine without complications | CPT/HCPCS: 90471; 90746; 96372; 99211; J3357 ==

== ENCOUNTER 2024-06-16 09:12 | Outpatient (AMB) | payer MEDICARE, SELFPAY ==
[2024-06-16 09:18] VITALS: BP 116/78; PULSE 71; O2SAT 94; BMI 28.8
--- NOTE | 2024-06-16 09:18 | A.OFFPC_ITS ---
Vital Signs 06/16/24 09:18 Height 5 ft 5 in Weight 173 lb 6 oz BMI 28.8 BP 116/78 Blood Pressure Location Rt brachial Position Sitting Pulse 71 Pulse Source Pulse Oximeter Pulse Oximetry (%) 94 Oxygen Delivery Method Room Air Intake Visit Reasons: Followup labs Allergies silver [From TEGADERM AG MESH] Allergy (Unknown, Verified 06/16/24 09:22) RASH transparent dressing Allergy (Unknown, Verified 06/16/24 09:22) skin irritation sensitivity haloperidol [From HALDOL] Adverse Reaction (Intermediate, Verified 06/16/24 09:22) UNKNOWN Tegaderm CHG dressing: Allergy (Unknown, Uncoded 11/22/23 11:34) skin irritation Haldol Adverse Reaction (Unknown, Uncoded 11/22/23 11:34) paradoxical effect Medication List - Last Reconciled 06/16/24 by Galen Xie MD acetaminophen 325 mg PO BID PRN 30 days calcium citrate-vitamin D3 315 mg-5 mcg (200 unit) (Calcium Citrate + D) 1 tab PO QAM 90 days cetirizine (Zyrtec) 10 mg PO .q 8 am 90 days cholecalciferol (vitamin D3) (Vitamin D3) 50 mcg PO .q 8 am 90 days famotidine 40 mg PO BEDTIME fluoxetine 20 mg PO DAILY fluticasone propionate 50 mcg/actuation 1 spray intranasal BEDTIME 30 days folic acid 1 mg PO QAM 90 days losartan 25 mg PO .q 8 am multivitamin 1 tab PO DAILY naltrexone 50 mg PO DAILY olanzapine (Zyprexa) 5 mg PO BEDTIME omega 9-frm-emk-fish oil 300-1,000 mg 1 cap orally in am, noon and pm; 90 days polyethylene glycol 3350 (Miralax) 17 grams PO DAILY 90 days rosuvastatin 5 mg PO .qhs trazodone 100 mg PO BEDTIME ustekinumab (Stelara) 90 mg subcut Q8W Tobacco use date assessed: 06/16/24 Dental Screening Dental Screen Date: 06/16/24 Did you have a dental visit in the last 12 months?: No Did you have a dental problem in the last 6 months where you did not have access to dental care?: No Was dental information given to patient?: Patient has dentist HPI Followup labs HPI Details Patient is 29-year-old female who was seen in emergency room this month secondary to ingesting a piece of plastic from her salad get Patient has a history of Prader-Willi syndrome, autism, hypertension, Crohn's disease, sleep apnea however she is not able to use CPAP machine She was evaluated with physical exam, chest x-ray and KUB After evaluation patient was discharged home Last time she was seen in this clinic was January of last year She is here today for follow-up from emergency room as well as for her regular follow-up for blood pressure Labs done March this year showed normal CBC Kidney functions intact sugar 108 with hemoglobin A1c of 5.4 Liver enzymes within normal limit LDL 62 Her medications are Tylenol Zyrtec for allergies Famotidine 40 mg for GERD Fluoxetine 20 mg Flonase nasal spray Folic acid Losartan 25 mg once a day Naltrexone 50 mg Zyprexa 5 mg MiraLax for constipation Rosuvastatin 5 mg for lipid control Trazodone 100 mg at bedtime And Stelara for Crohn's disease through Gastroenterology Only medication from this office is for blood pressure and cholesterol along with p.r.n. medications Continued to have constipation, she has script for MiraLax but it is to be given p.r.n. I am changing direction to be given every day and hold it for diarrhea and loose stools Patient Instructions - Continue taking MiraLAX 17 grams once daily to manage constipation. - Mix MiraLAX with a glass of liquid, elmer sidhu is requesting juice - Hold MiraLAX if diarrhea or loose stoo ls occur. - Monitor weight regularly and report an y significant changes. - Blood pressure needs monitoring; conta ct your healthcare provider if it becomes too low. - Return for follow-up appointment in . - Labs to be conducted prior to the next visit. - Call your healthcare provider if you e xperience any new symptoms or if conditions worsen. Review of Systems - General: No fever no chills - Neurological: No headaches no dizziness - Ear nose throat: No sore throat no hearing difficulty no ear pain - Cardiovascular: No syncope, no chest pain, no palpitations - Gastrointestinal: No nausea vomiting or diarrhea - Endocrine: No polyuria polydipsia no heat intolerance - Genitourinary: No dysuria , no blood in urine Physical Exam General: No acute distress HEENT: No acute findings Neck: Supple Respiratory system: Able to talk in full sentences, no audible wheeze cardiovascular: S1-S2 regular in rate and rhythm Gastrointestinal: Constipation Extremities: No new findings BOW STRING MAKER: Alert awake oriented x3 motor sensory intact Skin: Normal turgor PFSH Medical History Transaminitis KARLA (obstructive sleep apnea) Somnolence, daytime Morbid obesity Pain of left lower extremity Swelling of left lower extremity Hypertension, essential Mood disorder Developmental delay, mild Vitamin D deficiency Anemia Iron deficiency PTSD (post-traumatic stress disorder) Anxiety Autistic disorder Chronic constipation Acute constipation Colitis Crohn's disease Prader-Willi syndrome Pica in adults Surgical History History of abdominal surgery History of throat surgery Family History Father No problems noted. Mother No problems noted. Social History Household Members: Other Housing: Other Do you presently have visiting nurse or other home services: Yes Alcohol intake: never Comment: No complaints of headache Patient Tobacco Use Status: Never used Tobacco e-Cigarette/Vaping Use: Never Used Second Hand Smoke Exposure: No service: No Current occupational status: disabled Cognitive needs: No Hearing needs: No Vision needs: Yes Female Reproductive History Menstrual Age of Menarche: 11 Questionnaire PHQ-9 Over the last 2 weeks, how often have you been bothered by any of the following problems? 1. Little interest or pleasure in doing things: several days 2. Feeling down, depressed, or hopeless: not at all 3. Trouble falling or staying asleep, or sleeping too much: not at all 4. Feeling tired or having little energy: not at all 5. Poor appetite or overeating: not at all 6. Feeling bad about yourself - or that you are a failure or have let yourself or your family down: not at all 7. Trouble concentrating on things, such as reading the newspaper or watching television: not at all 8. Moving or speaking so slowly that other people could have noticed. Or the opposite - being so fidgety or restless that you have been moving around a lot more than usual: not at all 9. Thoughts that you would be better off or of hurting yourself in some way: not at all Total score: 1 Depression Screening Interpretation: Negative Depression Screening Done: Yes 40599 - PHQ-9 Billing: Yes Source: Developed by Drs. Lucian Garcia, Claudia Diaz, Edi Moore and colleagues, with an educational brian from [employer]. Thrive Questionnaire Date Thrive assessed: 06/16/24 I am a: Patient What is your living situation today?: I have a steady place to live Within the past 12 months, did the food you bought not last and you didn't have the money to get more?: Never true Within the past 12 months, did you worry whether your food would run out before you got money to buy more?: Never true Do you have trouble paying for medicines?: No Do you have trouble getting transportation to medical appointments?: No Do you have trouble paying your heating and electricity bill?: No Do you have trouble taking care of your child, family member or friend?: No Do you have trouble with day-to-day activities such as bathing, preparing meals, shopping, managing finances, etc.?: No Are you currently unemployed and looking for a job?: No Are you interested in more education?: No Please select the resources that you would like help with: None Currently or been in a relationship where the following occur: No concerns reported THRIVE Score: 0 AUDIT C Alcohol Use Questionnaire (AUDIT-C) 1. How often do you have a drink containing alcohol?: Never 3. How often do you have six or more drinks on one occasion?: Never Total Score: 0 Score Reviewed/Action Taken: Yes BEVERLEY-7 AMB Questionnaire BEVERLEY-7 Date BEVERLEY - 7 assessed: 06/16/24 Feeling nervous, anxious, or on edge: 0 = Not at all Not being able to stop or control worryin = Not at all Worrying too much about different things: 0 = Not at all Trouble relaxin = Not at all Being so restless that it is hard to sit still: 0 = Not at all Becoming easily annoyed or irritable: 0 = Not at all Feeling afraid as if something awful might happen: 0 = Not at all Total BEVERLEY-7 score (0-4 normal; 5-9 mild; 10-14 moderate; 15-21 severe): 0 Source: Developed by Drs. Lucian Garcia, Claudia Diaz, Edi Moore and colleagues, with an educational brian from [employer]. BEVERLEY-7 Assessment Billing BEVERLEY-7 Assessment Tool: BEVERLEY-7 Assessment 80220 Physical exam (Primary Care) Vital Signs: Last Vital Signs Pulse 71 06/16/24 09:18 BP 116/78 06/16/24 09:18 Pulse Ox 94 06/16/24 09:18 Oxygen Delivery Method Room Air 06/16/24 09:18 BMI result Body Mass Index 28.8 Tobacco/Smoking Status: Tobacco use Status Tobacco use date assessed 06/16/24 06/16/24 09:23 Patient Tobacco Use Status Never used Tobacco 06/16/24 09:23 e-Cigarette/Vaping Use Never Used 06/16/24 09:23 PHQ-9: PHQ-9 Score PHQ-9: Total score 1 06/16/24 11:42 Depression Screening Interpretation: Negative Thrive Assessment: Date of Thrive Assessment Date Thrive assessed 06/16/24 06/16/24 09:23 Currently or been in a relationship where the following occur: No concerns reported Coding Level of Care Code Est Pt Level 5 (45311) Complex EM visit Add On G2211 Diagnoses Hypertension, essential I10 Prader-Willi syndrome Q87.11 Lipid disorder E78.9 Crohn's disease of large intestine without complication K50.10 Digestive disease complication type: without complication Gastrointestinal tract location: large intestine Environmental allergies Z91.09 Chronic constipation K59.09 Autistic disorder F84.0 Chronic GERD K21.9 Psychiatric illness F99 Moderate episode of recurrent major depressive disorder F33.1 Active/Remission status: currently active Major depression episode severity: moderate Additional Codes BEVERLEY-7 Assessment Billing - BEVERLEY-7 Assessment Tool: BEVERLEY-7 Assessment 09714 ([id number]) PHQ-9 - 42886 - PHQ-9 Billing: Yes ([id number]) Time Spent (min) 40 Comment Hospital note reviewed, chart reviewed, case discussed with wraparound facilitator Assessment & Plan Assessment & Plan (1) Hypertension, essential: Code(s): I10 - Essential (primary) hypertension Category: Medical (2) Prader-Willi syndrome: Comment: Patient has developmental disorder secondary to Prader Willi Syndrome Code(s): Q87.11 - Prader-Willi syndrome Category: Medical (3) Lipid disorder: Code(s): E78.9 - Disorder of lipoprotein metabolism, unspecified Category: Medical (4) Crohn's disease: Code(s): K50.90 - Crohn's disease, unspecified, without complications Category: Medical Qualifiers: Digestive disease complication type: without complication Gastrointestinal tract location: large intestine Qualified Code(s): K50.10 - Crohn's disease of large intestine without complications (5) Environmental allergies: Code(s): Z91.09 - Other allergy status, other than to drugs and biological substances Category: Medical (6) Chronic constipation: Code(s): K59.09 - Other constipation Category: Medical (7) Autistic disorder: Code(s): F84.0 - Autistic disorder Category: Medical (8) Chronic GERD: Code(s): K21.9 - Gastro-esophageal reflux disease without esophagitis Category: Medical (9) Psychiatric illness: Code(s): F99 - Mental disorder, not otherwise specified Category: Medical (10) Major depression, recurrent: Code(s): F33.9 - Major depressive disorder, recurrent, unspecified Category: Medical Qualifiers: Active/Remission status: currently active Major depression episode cindy rity: moderate Qualified Code(s): F33.1 - Major depressive disorder, recurrent, moderate Plan Patient is 29-year-old female who was seen in emergency room this month secondary to ingesting a piece of plastic from her salad get Patient has a history of Prader-Willi syndrome, autism, hypertension, Crohn's disease, sleep apnea however she is not able to use CPAP machine She was evaluated with physical exam, chest x-ray and KUB After evaluation patient was discharged home Last time she was seen in this clinic was January of last year She is here today for follow-up from emergency room as well as for her regular follow-up for blood pressure Labs done March of this year showed normal CBC Kidney functions intact sugar 108 with hemoglobin A1c of 5.4 Liver enzymes within normal limit LDL 62 Her medications are Tylenol Zyrtec for allergies Famotidine 40 mg for GERD Fluoxetine 20 mg Flonase nasal spray Folic acid Losartan 25 mg once a day Naltrexone 50 mg Zyprexa 5 mg MiraLax for constipation Rosuvastatin 5 mg for lipid control Trazodone 100 mg at bedtime And Stelara for Crohn's disease through Gastroenterology Only medication from this office is for blood pressure and cholesterol along with p.r.n. medications Continued to have constipation, she has script for MiraLax but it is to be given p.r.n. I am changing direction to be given every day and hold it for diarrhea and loose stools Patient Instructions - Continue taking MiraLAX 17 grams once daily to manage constipation. - Mix MiraLAX with a glass of liquid, patient is requesting juice - Hold MiraLAX if diarrhea or loose stools occur. - Monitor weight regularly and report any significant changes. - Blood pressure needs monitoring; contact your healthcare provider if it becomes too low. - Return for follow-up appointment in three months. - Labs to be conducted prior to the next visit. - Call your healthcare provider if you experience any new symptoms or if conditions worsen. Orders: Orders LDL Cholesterol Direct Today F33.1 - Major depressive disorder, recurrent, moderate, F84.0 - Autistic disorder, F99 - Mental disorder, not otherwise specified, I10 - Essential (primary) hypertension, K21.9 - Gastro-esophageal reflux disease without esophagitis, K50.10 - Crohn's disease of large intestine without complications, K59.09 - Other constipation, Q87.11 - Prader-Willi syndrome, Z91.09 - Other allergy status, other than to drugs and biological substances Complete Blood Count Auto Diff Today F33.1 - Major depressive disorder, recurrent, moderate, F84.0 - Autistic disorder, F99 - Mental disorder, not otherwise specified, I10 - Essential (primary) hypertension, K21.9 - Gastro- esophageal reflux disease without esophagitis, K50.10 - Crohn's disease of large intestine without complications, K59.09 - Other constipation, Q87.11 - Prader- Willi syndrome, Z91.09 - Other allergy status, other than to drugs and biological substances Comprehensive Met. Panel Today F33.1 - Major depressive disorder, recurrent, moderate, F84.0 - Autistic disorder, F99 - Mental disorder, not otherwise specified, I10 - Essential (primary) hypertension, K21.9 - Gastro-esophageal reflux disease without esophagitis, K50.10 - Crohn's disease of large intestine without complications, K59.09 - Other constipation, Q87.11 - Prader-Willi syndrome, Z91.09 - Other allergy status, other than to drugs and biological substances TSH reflex Free T4 Today F33.1 - Major depressive disorder, recurrent, moderate, F84.0 - Autistic disorder, F99 - Mental disorder, not otherwise specified, I10 - Essential (primary) hypertension, K21.9 - Gastro-esophageal reflux disease without esophagitis, K50.10 - Crohn's disease of large intestine without complications, K59.09 - Other constipation, Q87.11 - Prader-Willi syndrome, Z91.09 - Other allergy status, other than to drugs and biological substances
== END 2024-06-16 09:39 | disposition home or self-care (01) ==
LOC: HO.HMCC 09:13
PROVIDERS: PCP Internal Medicine; Visit Provider Internal Medicine
DX: I10 Essential (primary) hypertension (principal); Q87.11 Prader-Willi syndrome; E78.9 Disorder of lipoprotein metabolism, unspecified; K50.10 Crohn's disease of large intestine without complications; Z91.09 Other allergy status, other than to drugs and biological substances; K59.09 Other constipation; F84.0 Autistic disorder; K21.9 Gastro-esophageal reflux disease without esophagitis; F99 Mental disorder, not otherwise specified; F33.1 Major depressive disorder, recurrent, moderate

== ENCOUNTER → 2024-06-16 09:12 | Outpatient (BNVA) | payer MEDICARE, SELFPAY | PROVIDERS: PCP Internal Medicine; Visit Provider Internal Medicine | DX: I10 Essential (primary) hypertension (principal); Q87.11 Prader-Willi syndrome; E78.9 Disorder of lipoprotein metabolism, unspecified; K50.10 Crohn's disease of large intestine without complications; K59.09 Other constipation; K21.9 Gastro-esophageal reflux disease without esophagitis; F99 Mental disorder, not otherwise specified; F33.1 Major depressive disorder, recurrent, moderate; Z91.09 Other allergy status, other than to drugs and biological substances | CPT/HCPCS: 96127; 99212 ==

== ENCOUNTER 2024-06-19 09:58 | Outpatient (AMB) | payer MEDICARE, SELFPAY ==
[2024-06-19 10:03] VITALS: BP 110/52; PULSE 74; O2SAT 94; BMI 28.5
--- NOTE | 2024-06-19 10:03 | MHC.OFFVIS ---
Vital Signs 06/19/24 10:03 Height 5 ft 5 in Weight 171 lb 4 oz BMI 28.5 BP 110/52 L Blood Pressure Location Rt brachial Position Sitting Pulse 74 Pulse Source Pulse Oximeter Pulse Oximetry (%) 94 Oxygen Delivery Method Room Air Intake Visit Reasons: 6 months f/u Crohn's Intake Note: ESTABLISHED PATIENT for mgmt of Crohn's. Chief Complaint; Pt learning support aide reports that sx are well controlled currently, miralax taken only PRN, constipation OK. No additional notes or concerns at this time. Daytime Caregiver Required: No Accompanied by: Other Relationship Allergies silver [From TEGADERM AG MESH] Allergy (Unknown, Verified 06/19/24 10:08) RASH transparent dressing Allergy (Unknown, Verified 06/19/24 10:08) skin irritation sensitivity haloperidol [From HALDOL] Adverse Reaction (Intermediate, Verified 06/19/24 10:08) UNKNOWN Tegaderm CHG dressing: Allergy (Unknown, Uncoded 06/19/24 10:08) skin irritation HPI HPI 6 months f/u Crohn's: Details: LAST VISIT Crohn's disease Transaminitis Constipation by delayed colonic transit Nonalcoholic fatty liver Plan Hep B vaccine today. Continue with Stelara injections every 8 weeks. Patient is stable at this time. Continue weight loss with diet and exercise. Follow-up in the office in 6 months, sooner on as needed basis. Patient and staff verbalize understanding of instructions. They were given the opportunity to ask questions and all questions answered. ? Thank you for allowing me to participate in her care Orders Orders Hepatitis B Adult Immunization Today Z23 Hepatitis B Adult Immunization Today Z23 TODAY'S VISIT Patient is here today for follow-up, patient is accompanied by 2 staff members. Patient has a history of PICA and has constant physician with her. Patient today reports that she has been feeling well. Patient had her Stelara injection last week with RN. Patient reports that she has been doing well. Patient denies any breakthrough symptoms. Reports that she is moving her bowels without any issues. Takes MiraLax every other day. Patient denies any blood or mucus in her stool. Patient denies any acid reflux. Denies any dyspepsia, dysphagia or odynophagia. [facility] Medical History Transaminitis KARLA (obstructive sleep apnea) Somnolence, daytime Morbid obesity Pain of left lower extremity Swelling of left lower extremity Hypertension, essential Mood disorder Developmental delay, mild Vitamin D deficiency Anemia Iron deficiency PTSD (post-traumatic stress disorder) Anxiety Autistic disorder Chronic constipation Acute constipation Colitis Crohn's disease Prader-Willi syndrome Pica in adults Surgical History History of abdominal surgery History of throat surgery Family History Father No problems noted. Mother No problems noted. Social History Household Members: Other Housing: Other Do you presently have visiting nurse or other home services: Yes Alcohol intake: never Comment: No complaints of headache Patient Tobacco Use Status: Never used Tobacco e-Cigarette/Vaping Use: Never Used Second Hand Smoke Exposure: No service: No Current occupational status: disabled Cognitive needs: No Hearing needs: No Vision needs: Yes Female Reproductive History Menstrual Age of Menarche: 11 Review of Systems Const Denies weight gain and Denies weight loss ENT Reports no additional complaints, Denies dysphagia and Denies odynophagia Card Reports no additional complaints Resp Reports no additional complaints GI Denies abdominal pain, Denies belching, Denies melena, Denies bloating, Denies change in bowel habits, Denies dysphagia, Denies excessive flatus, Denies dyspepsia, Denies heartburn, Denies diarrhea, Denies loose stools, Denies nausea, Denies odynophagia and Denies vomiting Musc Reports no additional complaints Neuro Reports no additional complaints Psych Reports no additional complaints Endo Reports no additional complaints Physical Exam Vital Signs: Last Vital Signs Pulse 74 06/19/24 10:03 BP 110/52 L 06/19/24 10:03 Pulse Ox 94 06/19/24 10:03 Oxygen Delivery Method Room Air 06/19/24 10:03 BMI result Body Mass Index 28.5 Const General: no acute distress Nutritional Appearance: obese Resp Effort & Inspection: normal respiratory effort, able to speak in complete sentences, no tracheal deviation and symmetric chest movement Auscultation: clear to auscultation bilaterally Cardio Rate: regular rate GI Inspection: Yes normal to inspection and Yes obesity Palpation (GI): Soft to palpation Auscultation: normal bowel sounds General: Yes no CVA tenderness Back/Spine/Pelvis Back: no CVA tenderness Skin General skin exam: elasticity normal, turgor normal and dry skin Psych Appearance: grossly normal Assessment & Plan Assessment & Plan (1) Crohn's disease: Code(s): K50.90 - Crohn's disease, unspecified, without complications Category: Medical Qualifiers: Digestive disease complication type: without complication Gastrointestinal tract location: large intestine Qualified Code(s): K50.10 - Crohn's disease of large intestine without complications (2) Transaminitis: Code(s): R74.01 - Elevation of levels of liver transaminase levels Category: Medical (3) Constipation by delayed colonic transit: Code(s): K59.01 - Slow transit constipation Category: Medical (4) Nonalcoholic fatty liver: Code(s): K76.0 - Fatty (change of) liver, not elsewhere classified Plan Continue MiraLax as needed. Increase fluid intake and activity to promote better bowel motility. Continue Stelara injections. Patient has been set up with our nurse. History of fatty liver disease will send patient for ultrasound with liver elastography. Normal liver enzymes in March. Patient lost 30 lb since last visit and is feeling well. Follow-up in 6 months, sooner on as needed basis. Patient is agreeable to this plan and verbalizes understanding of instructions. She was given the opportunity to ask questions and all questions answered. Thank you for allowing me to participate in her care Orders: Orders US abdomen agrawal w elastography 06/19/24 K76.0 - Fatty (change of) liver, not elsewhere classified Medications: Changed From polyethylene glycol 3350 Hold for diarrhea 17 grams PO DAILY 90 days 1,530 grams 0RF constipation To polyethylene glycol 3350 (Miralax) Hold for diarrhea 17 grams PO DAILY PRN 510 grams 1RF constipation 90 days Coding Level of Care Code Est Pt Level 4 (77325) Complex EM visit Add On G2211 Diagnoses Crohn's disease of large intestine without complication K50.10 Digestive disease complication type: without complication Gastrointestinal tract location: large intestine Transaminitis R74.01 Constipation by delayed colonic transit K59.01 Nonalcoholic fatty liver K76.0 Time Spent (min) 35 Comment 20 minutes spent with patient and additional 15 minutes spent reviewing her records
== END 2024-06-19 10:34 | disposition home or self-care (01) ==
LOC: HO.HGI 09:59
PROVIDERS: PCP Internal Medicine; Visit Provider Nurse Practitioner Family
DX: K50.10 Crohn's disease of large intestine without complications (principal); R74.01 Elevation of levels of liver transaminase levels; K59.01 Slow transit constipation; K76.0 Fatty (change of) liver, not elsewhere classified
CPT/HCPCS: 99214; G2211

== ENCOUNTER → 2024-06-19 09:58 | Outpatient (BNVA) | payer MEDICARE, SELFPAY | PROVIDERS: PCP Internal Medicine; Visit Provider Nurse Practitioner Family | DX: K50.10 Crohn's disease of large intestine without complications (principal); K59.01 Slow transit constipation; R74.01 Elevation of levels of liver transaminase levels; K76.0 Fatty (change of) liver, not elsewhere classified | CPT/HCPCS: 99212 ==

== ENCOUNTER 2024-08-07 10:11 | Outpatient (AMB) | payer MEDICARE, SELFPAY ==
--- NOTE | 2024-08-07 10:19 | AM.OFFVISNUR ---
Intake Visit Reasons: Stelara Allergies silver [From TEGADERM AG MESH] Allergy (Unknown, Verified 06/19/24 10:08) RASH transparent dressing Allergy (Unknown, Verified 06/19/24 10:08) skin irritation sensitivity haloperidol [From HALDOL] Adverse Reaction (Intermediate, Verified 06/19/24 10:08) UNKNOWN Tegaderm CHG dressing: Allergy (Unknown, Uncoded 06/19/24 10:08) skin irritation Office Meds Stelara 90 mg/mL subcutaneous syringe Performing Provider: ROMEL Del Rio Performing Location: [facility] [place] [facility] Administered by: Leatha Evans RN on 08/07/24 10:19 Dose Route Admin Location Dispensed Lot Number Expiration Date [facility] [employer] 90 mg subcut Left Arm, Upper, Outer 1 mL [id number] 11/26/26 02577-356-03 [employer] Assessment & Plan Assessment & Plan (1) Crohn's disease: Code(s): K50.90 - Crohn's disease, unspecified, without complications Category: Medical Qualifiers: Gastrointestinal tract location: large intestine Digestive disease complication type: without complication Qualified Code(s): K50.10 - Crohn's disease of large intestine without complications Orders: Orders AMB Ustekinumab Injection Today K50.10 - Crohn's disease of large intestine without complications Medications: New Stelara (ustekinumab) 90 mg subcut ONCE 1 mL 0RF NS K50.10 - Crohn's disease of large intestine without complications Coding Level of Care Code Established Pt Est Pt Level 1 (01292) Patient Type Established Medical Decision Making Straight Forward Diagnoses Crohn's disease of large intestine without complication K50.10 Gastrointestinal tract location: large intestine Digestive disease complication type: without complication
--- OUTSIDE RECORDS SUMMARY | 2024-08-07 10:38 | XMS_ITS | Data Portability ---
Author Organization RASHIDA Kline s, [address] Address [address] [place] [address] Care Team Providers Care Deaf Interpreter Name Role Phone GALE HERRON Primary Care [...] anybody to take it out. 2022 023 [facility], [address] [place], [address], 3 11:14:58 Procedures None recorded. Surgeries None recorded. Imaging None recorded. Medication Orders None recorded. Patient TargetsNo targets recorded. Patient Instructions Encounter Date Encounter Id Patient Instructions Last Modified By Organization Details Last Modified Time 07/05/2022 [id number] How do you know when anxiety is [...] Address Organization Details Recorded Time Crohn's disease 15071874 Active 2022 Celina sims, PA - [facility] 3 10:40:54 Hypertensive disorder 83137607 Active 2022 Celina sims, PA - [facility] 3 10:41:11 Anxiety 24328917 Active 2022 Celina sims PA - [facility] 3 10:41:27 Problem Notes None recorded. Medical Equipment None Reported. Allergies Allergen ID Allergen Name Allergen Category Reaction Reaction Severity Criticality Documentation Date Start Date Code Code System Note Provider Name and Address Organization Details Recorded Time 465174 Haldol medicatio n Not available Not available Not available 07/05/2022 54896 9 RxNorm Celina sims PA - [facility] 3 10:38:19 698132 Tegaderm medicatio n Not available Not available Not available 07/05/2022 79522 UNK Celina sims PA - [facility] [...] 18 /min 130 mm[Hg] 70 mm[Hg] Celina Cabrera [employer] 3 10:48:04 Social History Question Answer Notes LastModified by [employer] Details LastModified Time Tobacco Smoking Status Never Smoker Celina sims [employer] 07/05/2022 10:41:44 Have You Recently Traveled Abroad? No Information not available 07/05/2022 Sex: Unknown Functional Status Question Answer Note LastModified by [employer] Details LastModified Time Do you use any illicit or recreational drugs? No Information not available 07/05/2022 Do you or have you ever used any other forms of tobacco or nicotine? No Information not available 07/05/2022 What is your level of alcohol consumption? None Information not available 07/05/2022 Mental Status None recorded. Family History Relationship [...] SNOMED-CT Code Diagnosis ICD10 Code Diagnosis Note [id number] [address] [facility] [address] [place] [address] 11/21/2018 11:59:56 11/21/2018 12:40:12 [id number] [address] [place] [address] 01/12/2019 09:59:09 01/12/2019 10:39:14 [id number] [address] [place] [address] 09/18/2021 16:11:26 09/18/2021 17:00:09 [id number] Rishi Cohen [facility] [address] [address] [place] [address] 07/05/2022 09:20:30 07/05/2022 11:14:52 Acute urinary tract infection 819294815 N39.0 Unable to obtain urine sample. Foreign mario dy in pharynx [id number] T17.208A Health Concerns Section Related Observation LastModified by Organization Detai ls LastModified Time None Recorded Concern Status LastModified by Organization Details LastModified Time None Recorded Advance Directives Directive None Recorded Payers Insurance Date Sequence Insurance Name Policy Number Policy Ko Covered Member ID Ko Member ID Guarantor Name 07/05/2022 1 [place] B[place] [employer] [facility] [id number] [facility] 07/05/2022 2 [place]ID[place]: [facility] [id number] [facility] Notes Date Note Type Note Provider [...] problems brought in by two attendants from [facility]. accidently try to swallow water bottle cap and will not allow anybody to take it out. Also might have UTI affecting her Mood. Rishi Cohen NP [address] [place], [address], [place] - [facility] 07/05/2022 11:21:53 OBGyn Episode No OBEpisode recorded.
== END 2024-08-07 10:20 | disposition home or self-care (01) ==
PROVIDERS: PCP Internal Medicine; Visit Provider Nurse Practitioner Family
DX: K50.10 Crohn's disease of large intestine without complications (principal)

== ENCOUNTER → 2024-08-07 10:11 | Outpatient (BNVA) | payer MEDICARE, SELFPAY | PROVIDERS: PCP Internal Medicine; Visit Provider Nurse Practitioner Family | DX: K50.10 Crohn's disease of large intestine without complications (principal) | CPT/HCPCS: 96372; 99211; J3357 ==

== ENCOUNTER 2024-08-31 10:03 | Outpatient (REF) | payer MEDICARE, SELFPAY ==
--- NOTE | ~2024-08-31 | US_ITS ---
EXAMINATION: US ABDOMEN LIMITED WITH LIVER ELASTOGRAPHY HISTORY: K76.0 - Fatty (change of) liver, not elsewhere classified TECHNIQUE: Real-time grayscale ultrasound imaging of the right upper quadrant was performed and images were reviewed. COMPARISON: Comparison is made with the prior examination dated 09/16/2023. FINDINGS: Liver: The right lobe of the liver measures 11.3 cm in size. The left lobe of the liver measures 7.1 cm in size. The liver demonstrates normal homogeneous echotexture. No focal mass or intrahepatic biliary ductal dilatation is identified. There is normal hepatopedal flow in the portal vein. Ultrasound elastography of the liver was performed with 10 separate measurements of the liver parenchyma with the patient in the supine position. Measurements were obtained approximately 2 cm below Luciano's capsule and perpendicular to the capsule. Images are of satisfactory quality. The median shear wave velocity is 1.75 m/s. The interquartile range/median (IQR/median) is 0.08. Gallbladder and biliary tree: The gallbladder is unremarkable, without evidence of calculi, wall thickening, or pericholecystic fluid. There is no sonographic Vergara sign. The common bile duct is normal in caliber measuring 4 mm. Right Kidney: The right kidney measures 9.5 cm in length. The right kidney is unremarkable, without evidence of masses, hydronephrosis, or calculi. Pancreas: The pancreatic head, neck, and body are unremarkable. The pancreatic tail is obscured by bowel gas. Abdominal aorta and inferior vena cava: The visualized portions of the abdominal aorta and inferior vena cava are normal in caliber. There is no free fluid in the right upper quadrant. US/US abdomen agrawal w elastography IMPRESSION: Unremarkable right upper quadrant ultrasound. The median shear wave velocity in the liver is 1.75 m/s, corresponding to a median liver stiffness of 9.24 kPa. The IQR/median value is 0.08. This is indicative of a quality data set. Findings are indicative of a high elastography value suggestive of compensated advanced chronic liver disease. REFERENCE: Society of Radiologists in Ultrasound Liver Stiffness Thresholds (2019): LIVER STIFFNESS THRESHOLDS: *Shear wave velocity less than 1.3 m/s (Liver Stiffness equal or less than 5 kPa): High probability of being normal. *Shear wave velocity less than 1.7 m/s (Liver Stiffness less than 9 kPa): In the absence of other known clinical signs, rules out compensated advanced chronic liver disease. *Shear wave velocity between 1.7-2.1 m/s (Liver Stiffness 9-13 kPa): Suggestive of compensated advanced chronic liver disease but need further test for confirmation. *Shear wave velocity between 2.1-2.4 m/s (Liver Stiffness 13-17 kPa): Rules in compensated advanced chronic liver disease. *Shear wave velocity greater than 2.4 m/s (Liver Stiffness over 17 kPa): Suggestive of clinically significant portal hypertension. QUALITY OF DATA SET: *IQR/Median value equal or less than 0.15 implies a quality data set. *IQR/Median value over 0.15 implies a poor quality data set. SIGNIFICANT CHANGE FROM PRIOR EXAM: Significant change if liver stiffness measurement is 10% or greater from prior exam. OTHER CONSIDERATIONS: The stage of liver fibrosis may be overestimated in the setting of acute hepatitis, liver inflammation, elevated liver function tests, hepatic vascular congestion, obstructive cholestasis, non-fasting state, and infiltrative diseases such as amyloidosis and lymphoma. In some patients with NAFLD, the liver stiffness thresholds for compensated advanced chronic liver disease may be lower. In causes other than viral hepatitis and NAFLD, liver stiffness thresholds are not well established. Electronically signed by: Lucian Santos MD 08/31/2024 01:51 PM EDT
--- OUTSIDE RECORDS SUMMARY | 2024-08-31 11:37 | XMS_ITS | Data Portability ---
Author Organization RASHIDA Kline s, [address] Address [address] [place] [address] Care Team Providers Care Oil Winterizer Name Role Phone GALE HERRON Primary Care [...] anybody to take it out. 2022 023 [facility], [address] [place], [address], 3 11:14:58 Procedures None recorded. Surgeries None recorded. Imaging None recorded. Medication Orders None recorded. Patient TargetsNo targets recorded. Patient Instructions Encounter Date Encounter Id Patient Instructions Last Modified By Organization Details Last Modified Time 07/05/2022 [id number] How do you know when anxiety is [...] Address Organization Details Recorded Time Crohn's disease 03471953 Active 2022 Celina sims, PA - [facility] 3 10:40:54 Hypertensive disorder 57396532 Active 2022 Celina sims, PA - [facility] 3 10:41:11 Anxiety 48899100 Active 2022 Celina sims PA - [facility] 3 10:41:27 Problem Notes None recorded. Medical Equipment None Reported. Allergies Allergen ID Allergen Name Allergen Category Reaction Reaction Severity Criticality Documentation Date Start Date Code Code System Note Provider Name and Address Organization Details Recorded Time 429433 Haldol medicatio n Not available Not available Not available 07/05/2022 71454 9 RxNorm Celina sims PA - [facility] 3 10:38:19 129381 Tegaderm medicatio n Not available Not available Not available 07/05/2022 77546 UNK Celina sims PA - [facility] [...] Not Available Vitals Date Recorded Body height Body temperature Oxygen saturation Oxygen saturation in Arterial blood by Pulse oximetry Heart rate Respiratory rate Systolic blood pressure Diastolic blood pressure Provider Name and Address Organization Details Last Updated DateTime 3 152.4 cm 97.3 [degF] 97 % 97 % 62 /min 18 /min 130 mm[Hg] 70 mm[Hg] Celina FIELD [employer] 3 10:48:04 Social History Question Answer Notes LastModified by [employer] Details LastModified Time Tobacco Smoking Status Never Smoker Celina sims [employer] 07/05/2022 10:41:44 Have You Recently Traveled Abroad? No Information not available 07/05/2022 Sex: Unknown Functional Status Question Answer Note LastModified by [employer] Details LastModified Time Do you use any [...] SNOMED-CT Code Diagnosis ICD10 Code Diagnosis Note [id number] [address] [address] [place] [address] 11/21/2018 11:59:56 11/21/2018 12:40:12 [id number] [address] [place] [address] 01/12/2019 09:59:09 01/12/2019 10:39:14 [id number] [address] [facility] [address] [place] [address] 09/18/2021 16:11:26 09/18/2021 17:00:09 [id number] Rishi Cohen NP [address] [place] [address] 07/05/2022 09:20:30 07/05/2022 11:14:52 Acute urinary tract infection 587888461 N39.0 Unable to obtain urine sample. Foreign mario dy in pharynx 63824637 T17.208A Health Concerns Section Related Observation LastModified by Organization Detai ls LastModified Time None Recorded Concern Status LastModified by Organization Details LastModified Time None Recorded Advance Directives Directive None Recorded Payers Insurance Date Sequence Insurance Name Policy Number Policy Ko Covered Member ID Ko Member ID Guarantor Name 07/05/2022 1 [place] B[place]: [employer] [facility] [id number] [facility] 07/05/2022 2 [place]: [facility] [id number] [facility] Notes Date Note Type Note Provider [...] Cohen NP [address] [place], [address], PA - [facility] 07/05/2022 11:21:53 OBGyn Episode No OBEpisode recorded.
== END 2024-08-31 10:04 | disposition home or self-care (01) ==
LOC: HO.US 10:03
PROVIDERS: PCP Internal Medicine; Visit Provider Nurse Practitioner Family
DX: K76.0 Fatty (change of) liver, not elsewhere classified (principal)
CPT/HCPCS: 76705; 76981

== ENCOUNTER → 2024-08-31 10:09 | Outpatient (BNV) | payer MEDICARE, SELFPAY | PROVIDERS: PCP Internal Medicine; Visit Provider Radiology Diagnostic Radiology | DX: K76.0 Fatty (change of) liver, not elsewhere classified (principal) | CPT/HCPCS: 76705 ==

== ENCOUNTER 2024-09-06 11:32 | Outpatient (REF) | payer MEDICARE, SELFPAY ==
--- OUTSIDE RECORDS SUMMARY | 2024-09-06 13:16 | XMS_ITS | Data Portability ---
Author Organization RASHIDA Kline s, [address] Address [address] [place] [address] Care Team Providers Care Baseball Inspector Name Role Phone GALE HERRON Primary Care Provider [phone] Assessment No assessment recorded. Plan of Treatment [...] anybody to take it out. 2022 023 [facility], [address] [place], [address], 3 11:14:58 Procedures None recorded. Surgeries None recorded. Imaging None recorded. Medication Orders None recorded. Patient TargetsNo targets recorded. Patient Instructions Encounter Date Encounter Id Patient Instructions Last Modified By Organization Details Last Modified Time 07/05/2022 [id number] How do you know when anxiety is [...] Address Organization Details Recorded Time Crohn's disease 69612629 Active 2022 Celina sims, PA - [facility] 3 10:40:54 Hypertensive disorder 05439802 Active 2022 Celina sims, PA - [facility] 3 10:41:11 Anxiety 53805588 Active 2022 Celina sims PA - [facility] 3 10:41:27 Problem Notes None recorded. Medical Equipment None Reported. Allergies Allergen ID Allergen Name Allergen Category Reaction Reaction Severity Criticality Documentation Date Start Date Code Code System Note Provider Name and Address Organization Details Recorded Time 292462 Haldol medicatio n Not available Not available Not available 07/05/2022 56004 9 RxNorm Celina sims PA - [facility] 3 10:38:19 079940 Tegaderm medicatio n Not available Not available Not available 07/05/2022 76700 UNK Celina sims PA - [facility] [...] /min 130 mm[Hg] 70 mm[Hg] Celina FIELD [employer] 3 10:48:04 Social History Question Answer Notes LastModified by [employer] Details LastModified Time Tobacco Smoking Status Never Smoker Celina sims [employer] 07/05/2022 10:41:44 Have You Recently Traveled Abroad? No Information not available 07/05/2022 Sex: Unknown Functional Status Question Answer Note LastModified by [employer] Details LastModified Time Do you use any [...] SNOMED-CT Code Diagnosis ICD10 Code Diagnosis Note [id number] [address] [place] [address] 11/21/2018 11:59:56 11/21/2018 12:40:12 [id number] [address] [place] [address] 01/12/2019 09:59:09 01/12/2019 10:39:14 [id number] [address] [address] [place] [address] 09/18/2021 16:11:26 09/18/2021 17:00:09 [id number] Rishi Cohen NP [address] [place] [address] 07/05/2022 09:20:30 07/05/2022 11:14:52 Acute urinary tract infection 688248408 N39.0 Unable to obtain urine sample. Foreign mario dy in pharynx 16815941 T17.208A Health Concerns Section Related Observation LastModified by Organization Detai ls LastModified Time None Recorded Concern Status LastModified by Organization Details LastModified Time None Recorded Advance Directives Directive None Recorded Payers Insurance Date Sequence Insurance Name Policy Number Policy Ko Covered Member ID Ko Member ID Guarantor Name 07/05/2022 1 MEDIC[place] B-[place]: [employer] [facility] [id number] [facility] 07/05/2022 2 [place] [id number] [facility] Notes Date Note Type Note Provider [...] problems brought in by two attendants from [facility]. accidently try to swallow water bottle cap and will not allow anybody to take it out. Also might have UTI affecting her Mood. Rishi Cohen NP [address] [place], [address], [place] - [facility] 07/05/2022 11:21:53 OBGyn Episode No OBEpisode recorded.
[2024-09-06 13:18] LABS: MANUAL DIFF FLAG NO
[2024-09-06 13:42] LABS: Basophils Percent Auto 0.5 % (0-2); Eosinophils Absolute Auto 0.2 X10*3/uL (0.0-0.4); Eosinophils Percent Auto 2.5 % (0-4); Hematocrit 39.7 % (37.0-47.0); Hemoglobin 12.9 g/dl (12.0-16.0); Imm Gran Abs Auto 0.02 X10*3/uL (0.00-0.03); Imm Gran Pct Auto 0.3 % (0.0-0.4); Lymphocytes Absolute Auto 1.5 X10*3/uL (1.2-4.9); Lymphocytes Percent Auto 25.8 % (20-40); Mean Corpuscular HGB Conc 32.5 g/dl (31.0-35.0); Mean Corpuscular Volume 89.2 fL (80.0-98.0); Monocytes Absolute Auto 0.4 X10*3/uL (0.1-1.2); Monocytes Percent Auto 6.7 % (2-11); Neutrophils Absolute Auto 3.8 x10*3/uL (2.0-8.3); Neutrophils Percent Auto 64.2 % (45-73); Platelet Count 176 X10*3/uL (160-400); Red Blood Count 4.45 X10*6/uL (4.20-5.50)
[2024-09-07 07:33] LABS: LDL Cholesterol Direct 63 mg/dL (<100)
== END 2024-09-06 11:33 | disposition home or self-care (01) ==
LOC: HO.HMGCLDS 11:32
PROVIDERS: PCP Internal Medicine; Visit Provider Internal Medicine
DX: I10 Essential (primary) hypertension (principal); K50.10 Crohn's disease of large intestine without complications; K59.09 Other constipation; K21.9 Gastro-esophageal reflux disease without esophagitis; Q87.11 Prader-Willi syndrome; F99 Mental disorder, not otherwise specified; F33.1 Major depressive disorder, recurrent, moderate; F84.0 Autistic disorder; Z91.09 Other allergy status, other than to drugs and biological substances
CPT/HCPCS: 36415; 80053; 83721; 84443; 85025

== ENCOUNTER 2024-09-19 10:06 | Outpatient (REF) | payer MEDICARE, SELFPAY ==
--- OUTSIDE RECORDS SUMMARY | 2024-09-19 11:08 | XMS_ITS | Data Portability ---
Author Organization RASHIDA Kline s, [address] Address [address] [place] [address] Care Team Providers Care Sales Promotion Coordinator Name Role Phone GALE HERRON Primary Care [...] anybody to take it out. 2022 023 [facility], [address] [place], [address], 3 11:14:58 Procedures None recorded. Surgeries None recorded. Imaging None recorded. Medication Orders None recorded. Patient TargetsNo targets recorded. Patient Instructions Encounter Date Encounter Id Patient Instructions Last Modified By Organization Details Last Modified Time 07/05/2022 [id number] How do you know when anxiety is [...] See your doctor or nurse if you: Are more anxious than you think is normal Get very anxious about things that other people handle more easily Your doctor or nurse can ask you questions that are designed to measure a person's anxiety level. If you do have a problem with anxiety, there are different treatments that can help. Is there anything I can do on my own to feel better? Yes. It might help to: Move your body Exercise can help many people feel less anxious. Even gentle forms of exercise, like walking, are good for your health. Limit or avoid caffeine Cut down on or stop drinking coffee and other sources of caffeine. Caffeine can make anxiety worse. Find healthy ways to manage stress Some people find that it helps to try something called mindfulness-based stress reduction. This involves going to a group program to practice relaxation and meditation. Other people find that activities like yoga, bhavik chi, or meditation help them manage their anxiety. Eat a healthy diet Eating plenty of vegetables, fruits, and whole grains can help with your overall health. Try to limit or avoid alcohol. How is anxiety treated? Treatments include: Psychotherapy Psychotherapy involves meeting with a mental health counselor to talk about your feelings, relationships, and worries. Therapy can help you find new ways of thinking about your situation so that you feel less anxious. In therapy, you might also learn new skills to reduce anxiety. Medicines Medicines used to treat depression can relieve [...] Address Organization Details Recorded Time Crohn's disease 80125265 Active 2022 [facility] 10:40:54 Hypertensive disorder 41248104 Active 2022 [facility] 3 10:41:11 Anxiety 44816582 Active 2022 Celina sims PA [facility] 3 10:41:27 Problem Notes None recorded. Medical Equipment None Reported. Allergies Allergen ID Allergen Name Allergen Category Reaction Reaction Severity Criticality Documentation Date Start Date Code Code System Note Provider Name and Address Organization Details Recorded Time 535626 Haldol medicatio n Not available Not available Not available 07/05/2022 94070 9 RxNorm Celina sims PA - [facility] 3 10:38:19 794347 Tegaderm medicatio n Not available Not available Not available 07/05/2022 14550 UNK Celina sims [facility] 3 10:38:24 Medications Name Sig [...] /min 130 mm[Hg] 70 mm[Hg] Celina Cabrera [facility] 3 10:48:04 Social History Question Answer Notes LastModified by [employer] Details LastModified Time Tobacco Smoking Status Never Smoker Celina sims F[facility]: [facility] 07/05/2022 10:41:44 Have You Recently Traveled Abroad? No Information not available 07/05/2022 Sex: Unknown Functional Status Question Answer Note LastModified by [employer] Details LastModified Time Do you use any [...] SNOMED-CT Code Diagnosis ICD10 Code Diagnosis Note [id number] [address] [place] [address] 11/21/2018 11:59:56 11/21/2018 12:40:12 [id number] [address] [place] [address] 01/12/2019 09:59:09 01/12/2019 10:39:14 [id number] [address] [place] [address] 09/18/2021 16:11:26 09/18/2021 17:00:09 [id number] Rishi Cohen NP [address] [place] [address] 07/05/2022 09:20:30 07/05/2022 11:14:52 Acute urinary tract infection 712999928 N39.0 Unable to obtain urine sample. Foreign mario dy in pharynx 00221855 T17.208A Health Concerns Section Related Observation LastModified by Organization Detai ls LastModified Time None Recorded Concern Status LastModified by Organization Details LastModified Time None Recorded Advance Directives Directive None Recorded Payers Insurance Date Sequence Insurance Name Policy Number Policy Ko Covered Member ID Ko Member ID Guarantor Name 07/05/2022 1 MEDICARE B-[place]: [employer] [facility] [id number] [facility] 07/05/2022 2 [place] [facility] [id number] [facility] Notes Date Note Type Note Provider Name [...] problems brought in by two attendants from [facility]. accidently try to swallow water bottle cap and will not allow anybody to take it out. Also might have UTI affecting her Mood. Rishi Cohen NP [address] [place], [address], [place] - [facility] 07/05/2022 11:21:53 OBGyn Episode No OBEpisode recorded.
[2024-09-19 13:32] LABS: Alanine Aminotransferase 21 U/L (0-31); Albumin Level 4.1 g/dL (3.5-5.0); Alkaline Phosphatase 57 U/L (39-117); Anion Gap 13 (12-20); Aspartate Amino Transferase 26 U/L (5-31); Bilirubin Total 0.3 mg/dL (0.0-1.0); Blood Urea Nitrogen 22 mg/dL (9-16); Calcium 9.3 mg/dL (8.4-10.2); Carbon Dioxide 28 mmol/L (22-29); Chloride 105 mmol/L (96-108); Estimated Glomerular Filt Rate > 60; Glucose Random 76 mg/dL (60-115); Potassium 4.1 mmol/L (3.3-5.1); Sodium 142 mmol/L (135-145)
[2024-09-19 13:38] LABS: TSH reflex Free T4 2.03 uIU/mL (0.32-4.0)
== END 2024-09-19 10:07 | disposition home or self-care (01) ==
LOC: HO.HMGCLDS 10:06
PROVIDERS: PCP Internal Medicine; Visit Provider Internal Medicine
DX: I10 Essential (primary) hypertension (principal); K50.10 Crohn's disease of large intestine without complications; K59.09 Other constipation; K21.9 Gastro-esophageal reflux disease without esophagitis; Q87.11 Prader-Willi syndrome; F99 Mental disorder, not otherwise specified; F33.1 Major depressive disorder, recurrent, moderate; F84.0 Autistic disorder; Z91.09 Other allergy status, other than to drugs and biological substances
CPT/HCPCS: 36415; 80053; 84443

== ENCOUNTER 2024-09-20 10:16 | Outpatient (AMB) | payer MEDICARE, SELFPAY ==
--- NOTE | 2024-09-20 10:17 | A.OFFPC_ITS ---
Vital Signs 09/20/24 10:19 Height 5 ft 5 in Weight 163 lb BMI 27.1 BP 110/60 Blood Pressure Location Rt brachial Position Sitting Respiration 16 Pulse 74 Pulse Source Pulse Oximeter Temp 98.1 F Temp Source Temporal Artery Scan Pulse Oximetry (%) 94 Oxygen Delivery Method Room Air Intake Visit Reasons: 3 months f/up Allergies silver (From TEGADERM AG MESH) Allergy (Unknown, Verified 09/20/24 10:18) RASH transparent dressing Allergy (Unknown, Verified 09/20/24 10:18) skin irritation sensitivity haloperidol (From HALDOL) Adverse Reaction (Intermediate, Verified 09/20/24 10:18) UNKNOWN Tegaderm CHG dressing: Allergy (Unknown, Uncoded 09/20/24 10:18) skin irritation Medication List - Last Reconciled 09/20/24 by Galen Xie MD acetaminophen 325 mg PO BID PRN 30 days calcium citrate-vitamin D3 315 mg-5 mcg (200 unit) (Calcium Citrate + D) 1 tab PO QAM 90 days cetirizine (Zyrtec) 10 mg PO .q 8 am 90 days cholecalciferol (vitamin D3) (Vitamin D3) 50 mcg PO .q 8 am 90 days famotidine 40 mg PO BEDTIME fluoxetine 20 mg PO DAILY fluticasone propionate 50 mcg/actuation 1 spray intranasal BEDTIME 30 days folic acid 1 mg PO QAM 90 days losartan 25 mg PO .q 8 am naltrexone 50 mg PO DAILY olanzapine (Zyprexa) 5 mg PO BEDTIME omega 4-voe-zwx-fish oil 300-1,000 mg 1 cap orally in am, noon and pm; 90 days polyethylene glycol 3350 17 grams PO DAILY rosuvastatin 5 mg PO .qhs trazodone 100 mg PO BEDTIME ustekinumab (Stelara) 90 mg subcut Q8W Tobacco use date assessed: 09/20/24 Dental Screening Dental Screen Date: 09/20/24 Did you have a dental visit in the last 12 months?: Yes Did you have a dental problem in the last 6 months where you did not have access to dental care?: No Was dental information given to patient?: Patient has dentist HPI 3 months f/up HPI Details History - The patient is a 29-year-old female pr esenting with a follow-up for blood pressure control. - Ingestion incident: The patient experi enced an ingestion incident last week, which required an emergency room visit. Patient have a Prader-Willi syndrome and have history of ingesting foreign materials - Blood pressure: The patient's blood pr essure is well controlled, and recent lab tests returned normal results. - Exercise: The patient engages in regul ar exercise, including online workouts with an forest pathology teacher five days a week, incorporating weights. - Crohn's disease stable patient is esta blished with gastroenterology - allergies stable - lipid disorder: Continue rosuvastatin 5 mg Problem List - Ingestion incident - Blood pressure monitoring - lipid disorder - Prader-Willi syndrome - recurrent foreign body ingestion - Crohn's disease - allergies - psychiatric illness Patient Instructions - Continue current medications as prescr ibed. - Maintain regular exercise routine with online workouts. - Schedule a follow-up appointment in . Review of Systems - General: No fever no chills - Neurological: No headaches no dizziness - Ear nose throat: No sore throat no hearing difficulty no ear pain - Cardiovascular: No syncope, no chest pain, no palpitations - Gastrointestinal: No nausea vomiting or diarrhea Physical Exam General: No acute distress HEENT: No acute findings Neck: Supple Respiratory system: Able to talk in full sentences, no audible wheeze Cardiovascular: S1-S2 regular in rate and rhythm Gastrointestinal: No pain, no constipation, no diarrhea Extremities: No new findings STRAIGHT KNIFE MACHINE CUTTER: Alert awake oriented x3 motor sensory intact Skin: Normal turgor PFSH Medical History Transaminitis KARLA (obstructive sleep apnea) Somnolence, daytime Morbid obesity Pain of left lower extremity Swelling of left lower extremity Hypertension, essential Mood disorder Developmental delay, mild Vitamin D deficiency Anemia Iron deficiency PTSD (post-traumatic stress disorder) Anxiety Autistic disorder Chronic constipation Acute constipation Colitis Crohn's disease Prader-Willi syndrome Pica in adults Surgical History History of abdominal surgery History of throat surgery Family History Father No problems noted. Mother No problems noted. Social History Household Members: Other Housing: Other Do you presently have visiting nurse or other home services: Yes Alcohol intake: never Comment: No complaints of headache Patient Tobacco Use Status: Never used Tobacco e-Cigarette/Vaping Use: Never Used Second Hand Smoke Exposure: No service: No Current occupational status: disabled Cognitive needs: No Hearing needs: No Vision needs: Yes Female Reproductive History Menstrual Age of Menarche: 11 Questionnaire Thrive Questionnaire Date Thrive assessed: 06/16/24 I am a: Patient What is your living situation today?: I have a steady place to live Within the past 12 months, did the food you bought not last and you didn't have the money to get more?: Never true Within the past 12 months, did you worry whether your food would run out before you got money to buy more?: Never true Do you have trouble paying for medicines?: No Do you have trouble getting transportation to medical appointments?: No Do you have trouble paying your heating and electricity bill?: No Do you have trouble taking care of your child, family member or friend?: No Do you have trouble with day-to-day activities such as bathing, preparing meals, shopping, managing finances, etc.?: No Are you currently unemployed and looking for a job?: No Are you interested in more education?: No Please select the resources that you would like help with: None Currently or been in a relationship where the following occur: No concerns reported THRIVE Score: 0 BEVERLEY-7 AMB Questionnaire BEVERLEY-7 Date BEVERLEY - 7 assessed: 06/16/24 Source: Developed by Drs. Lucian Garcia, Claudia Diaz, Edi Moore and colleagues, with an educational brian from [employer]. Physical exam (Primary Care) Vital Signs: Last Vital Signs Temp 98.1 F 09/20/24 10:19 Pulse 74 09/20/24 10:19 Resp 16 09/20/24 10:19 BP 110/60 09/20/24 10:19 Pulse Ox 94 09/20/24 10:19 Oxygen Delivery Method Room Air 09/20/24 10:19 BMI result Body Mass Index 27.1 Tobacco/Smoking Status: Tobacco use Status Tobacco use date assessed 09/20/24 09/20/24 10:25 Patient Tobacco Use Status Never used Tobacco 09/20/24 10:25 e-Cigarette/Vaping Use Never Used 09/20/24 10:25 Thrive Assessment: Date of Thrive Assessment Date Thrive assessed 06/16/24 09/20/24 10:25 Currently or been in a relationship where the following occur: No concerns reported Coding Level of Care Code Est Pt Level 4 (42371) Complex EM visit Add On G2211 Diagnoses Hypertension, essential I10 Prader-Willi syndrome Q87.11 Lipid disorder E78.9 Environmental allergies Z91.09 Autistic disorder F84.0 Crohn's disease of large intestine without complication K50.10 Gastrointestinal tract location: large intestine Digestive disease complication type: without complication Chronic GERD K21.9 Psychiatric illness F99 Assessment & Plan Assessment & Plan (1) Hypertension, essential: Code(s): I10 - Essential (primary) hypertension Category: Medical (2) Prader-Willi syndrome: Comment: Patient has developmental disorder secondary to Prader Willi Syndrome Code(s): Q87.11 - Prader-Willi syndrome Category: Medical (3) Lipid disorder: Code(s): E78.9 - Disorder of lipoprotein metabolism, unspecified Category: Medical (4) Environmental allergies: Code(s): Z91.09 - Other allergy status, other than to drugs and biological substances Category: Medical (5) Autistic disorder: Code(s): F84.0 - Autistic disorder Category: Medical (6) Crohn's disease: Code(s): K50.90 - Crohn's disease, unspecified, without complications Category: Medical Qualifiers: Gastrointestinal tract location: large intestine Digestive disease complication type: without complication Qualified Code(s): K50.10 - Crohn's disease of large intestine without complications (7) Chronic GERD: Code(s): K21.9 - Gastro-esophageal reflux disease without esophagitis Category: Medical (8) Psychiatric illness: Code(s): F99 - Mental disorder, not otherwise specified Category: Medical Plan History - The patient is a 29-year-old female presenting with a follow-up for blood pressure control. This is an ongoing care - Ingestion incident: The patient experienced an ingestion incident last week, which required an emergency room visit. Patient have a Prader-Willi syndrome and have history of ingesting foreign materials - Blood pressure: The patient's blood pressure is well controlled, and recent lab tests returned normal results. - Exercise: The patient engages in regular exercise, including online workouts with an forest pathology teacher five days a week, incorporating weights. - Crohn's disease stable patient is established with gastroenterology - allergies stable - lipid disorder: Continue rosuvastatin 5 mg Labs done this month reviewed CBC stable Metabolic profile stable Problem List - Ingestion incident - Blood pressure monitoring - lipid disorder - Prader-Willi syndrome - recurrent foreign body ingestion - Crohn's disease - allergies - psychiatric illness Patient Instructions - Continue current medications as prescribed. - Maintain regular exercise routine with online workouts. - Schedule a follow-up appointment in three months.
[2024-09-20 10:19] VITALS: BP 110/60; PULSE 74; RESP 16; TEMP 36.7; O2SAT 94; BMI 27.1
--- OUTSIDE RECORDS SUMMARY | 2024-09-20 11:55 | XMS_ITS | Data Portability ---
Author Organization RASHIDA Kline [facility], [address] Address [address] [place] [address] Care Team Providers Care Paperhanger Assistant Name Role Phone GALE HERRON Primary Care Provider [phone] Assessment No assessment recorded. Plan of Treatment [...] to take it out. 2022 023 [facility] Emergency Room, [address] [place], [address], 3 11:14:58 Procedures None recorded. Surgeries None recorded. Imaging None recorded. Medication Orders None recorded. Patient TargetsNo targets recorded. Patient Instructions Encounter Date Encounter Id Patient Instructions Last Modified By Organization Details Last Modified Time 07/05/2022 [id number] How do you know when anxiety is [...] Address Organization Details Recorded Time Crohn's disease 06020730 Active 2022 [facility] 10:40:54 Hypertensive disorder 99410522 Active 2022 [facility] 3 10:41:11 Anxiety 97802274 Active 2022 Celina sims PA [facility] 3 10:41:27 Problem Notes None recorded. Medical Equipment None Reported. Allergies Allergen ID Allergen Name Allergen Category Reaction Reaction Severity Criticality Documentation Date Start Date Code Code System Note Provider Name and Address Organization Details Recorded Time 964439 Haldol medicatio n Not available Not available Not available 07/05/2022 85050 9 RxNorm Celina sims PA - [facility] 3 10:38:19 680745 Tegaderm medicatio n Not available Not available Not available 07/05/2022 84634 UNK Celina sims [facility] 3 10:38:24 Medications Name Sig [...] /min 130 mm[Hg] 70 mm[Hg] Celina Cabrera [employer] [facility] 3 10:48:04 Social History Question Answer Notes LastModified by [employer] Details LastModified Time Tobacco Smoking Status Never Smoker Celina sims [employer] [facility] 07/05/2022 10:41:44 Have You Recently Traveled Abroad? No Information not available 07/05/2022 Sex: Unknown Functional Status Question Answer Note LastModified by [employer] Details LastModified Time Do you use any [...] SNOMED-CT Code Diagnosis ICD10 Code Diagnosis Note [id number] [address] [place] [address] 11/21/2018 11:59:56 11/21/2018 12:40:12 [id number] [address] [place] [address] 01/12/2019 09:59:09 01/12/2019 10:39:14 [id number] [address] [place] [address] 09/18/2021 16:11:26 09/18/2021 17:00:09 [id number] Rishi Cohen NP [address] [place] [address] 07/05/2022 09:20:30 07/05/2022 11:14:52 Acute urinary tract infection 560820009 N39.0 Unable to obtain urine sample. Foreign mario dy in pharynx [id number] T17.208A Health Concerns Section Related Observation LastModified by Organization Detai ls LastModified Time None Recorded Concern Status LastModified by Organization Details LastModified Time None Recorded Advance Directives Directive None Recorded Payers Insurance Date Sequence Insurance Name Policy Number Policy Ko Covered Member ID Ko Member ID Guarantor Name 07/05/2022 1 [place]ARE [place]: [facility] [facility] [id number] [facility] 07/05/2022 2 [place] [facility] [id number] [facility] [place] [facility] Notes Date Note Type Note Provider Name [...] Cohen NP [address] [place], [address], [place] - [facility] 07/05/2022 11:21:53 OBGyn Episode No OBEpisode recorded.
== END 2024-09-20 10:36 | disposition home or self-care (01) ==
LOC: HO.HMCC 10:16
PROVIDERS: PCP Internal Medicine; Visit Provider Internal Medicine
DX: I10 Essential (primary) hypertension (principal); Q87.11 Prader-Willi syndrome; K50.10 Crohn's disease of large intestine without complications; E78.9 Disorder of lipoprotein metabolism, unspecified; Z91.09 Other allergy status, other than to drugs and biological substances; F84.0 Autistic disorder; K21.9 Gastro-esophageal reflux disease without esophagitis; F99 Mental disorder, not otherwise specified

== ENCOUNTER → 2024-09-20 10:16 | Outpatient (BNVA) | payer MEDICARE, SELFPAY | PROVIDERS: PCP Internal Medicine; Visit Provider Internal Medicine | DX: I10 Essential (primary) hypertension (principal); Q87.11 Prader-Willi syndrome; E78.9 Disorder of lipoprotein metabolism, unspecified; Z91.09 Other allergy status, other than to drugs and biological substances; F84.0 Autistic disorder; K50.10 Crohn's disease of large intestine without complications; K21.9 Gastro-esophageal reflux disease without esophagitis; F99 Mental disorder, not otherwise specified | CPT/HCPCS: 99212 ==

== ENCOUNTER 2024-10-02 10:06 | Outpatient (AMB) | payer MEDICARE, SELFPAY ==
--- NOTE | 2024-10-02 10:15 | AM.OFFVISNUR ---
Intake Visit Reasons: Stelara Allergies silver (From TEGADERM AG MESH) Allergy (Unknown, Verified 09/20/24 10:18) RASH transparent dressing Allergy (Unknown, Verified 09/20/24 10:18) skin irritation sensitivity haloperidol (From HALDOL) Adverse Reaction (Intermediate, Verified 09/20/24 10:18) UNKNOWN Tegaderm CHG dressing: Allergy (Unknown, Uncoded 09/20/24 10:18) skin irritation Nursing Note Lot #[id number] Medication: Stelara [facility] #96519-820-94 Expiration date: 12/26/2026 Online Media Buyer: In Flow Dose: 90mg/mL Route: Subcut Location given: Left Arm, Upper, Outer Office Meds Stelara 90 mg/mL subcutaneous syringe Performing Provider: ROMEL Del Rio Performing Location: [facility] Administered by: Leatha Evans RN on 10/02/24 10:15 Dose Route Admin Location Dispensed Lot Number Expiration Date [facility] Online [employer] Buyer 90 mg subcut Left Arm, Upper, Outer 1 mL [id number] 12/26/26 89909-710-23 [employer] Total Dispensed Waste 1 mL 0 % Assessment & Plan Assessment & Plan Orders: Orders AMB Ustekinumab Injection Today K50.10 - Crohn's disease of large intestine without complications Coding Level of Care Code Established Pt Est Pt Level 1 (31958) Patient Type Established Medical Decision Making Straight Forward
--- OUTSIDE RECORDS SUMMARY | 2024-10-02 10:52 | XMS_ITS | Data Portability ---
Author Organization RASHIDA Kline s, [address] Address [address] [place] [address] Care Team Providers Care Blueprint Processor Name Role Phone GALE HERRON Primary Care [...] anybody to take it out. 2022 023 [facility] Emergency Room, [address] [place], [address], 3 11:14:58 Procedures None recorded. Surgeries None recorded. Imaging None recorded. Medication Orders None recorded. Patient TargetsNo targets recorded. Patient Instructions Encounter Date Encounter Id Patient Instructions Last Modified By Organization Details Last Modified Time 07/05/2022 [id number] How do you know when anxiety is [...] Address Organization Details Recorded Time Crohn's disease 11720932 Active 2022 [facility] 10:40:54 Hypertensive disorder 94708537 Active 2022 [facility] 3 10:41:11 Anxiety 09267981 Active 2022 Celina sims PA [facility] 3 10:41:27 Problem Notes None recorded. Medical Equipment None Reported. Allergies Allergen ID Allergen Name Allergen Category Reaction Reaction Severity Criticality Documentation Date Start Date Code Code System Note Provider Name and Address Organization Details Recorded Time 953251 Haldol medicatio n Not available Not available Not available 07/05/2022 95450 9 RxNorm Celina sims PA - [facility] 3 10:38:19 126783 Tegaderm medicatio n Not available Not available Not available 07/05/2022 10711 UNK Celina sims [facility] 3 10:38:24 Medications Name Sig [...] Pulse oximetry Heart rate Respiratory rate Systolic And Diastolic Provider Name and Address Organization Details Last Updated DateTime 3 152.4 cm 97.3 [degF] 97 % 97 % 62 /min 18 /min 130/70 mm[Hg] Celina FIELD [facility] 3 10:48:04 Social History Question Answer Notes LastModified by [employer] Details LastModified Time Tobacco Smoking Status Never Smoker Celina sims PA [facility] 07/05/2022 10:41:44 Have You Recently Traveled Abroad? No Information not available 07/05/2022 Sex: Unknown Functional Status Question Answer Note LastModified by [employer] Details LastModified Time Do you use any [...] SNOMED-CT Code Diagnosis ICD10 Code Diagnosis Note [id number] [address] [place] [address] 11/21/2018 11:59:56 11/21/2018 12:40:12 [id number] [address] [place] [address] 01/12/2019 09:59:09 01/12/2019 10:39:14 [id number] [address] [place] [address] 09/18/2021 16:11:26 09/18/2021 17:00:09 [id number] Rishi Cohen NP [address] [place] [address] 07/05/2022 09:20:30 07/05/2022 11:14:52 Acute urinary tract infection 409650618 N39.0 Unable to obtain urine sample. Foreign mario dy in pharynx 61131549 T17.208A Health Concerns Section Related Observation LastModified by Organization Detai ls LastModified Time None Recorded Concern Status LastModified by Organization Details LastModified Time None Recorded Advance Directives Directive None Recorded Payers Insurance Date Sequence Insurance Name Policy Number Policy Ko Covered Member ID Ko Member ID Guarantor Name 07/05/2022 1 [place]: [employer] [facility] [id number] [facility] 07/05/2022 2 [place] [facility] [place] [id number] [facility] Notes Date Note Type Note Provider [...] problems brought in by two attendants from nursing home. accidently try to swallow water bottle cap and will not allow anybody to take it out. Also might have UTI affecting her Mood. Rishi Cohen NP [address] [place], [address], [place] - [facility] 07/05/2022 11:21:53 OBGyn Episode No OBEpisode recorded.
== END 2024-10-02 10:19 | disposition home or self-care (01) ==
LOC: HO.HGI 10:07
PROVIDERS: PCP Internal Medicine; Visit Provider Nurse Practitioner Family
DX: K50.10 Crohn's disease of large intestine without complications (principal)

== ENCOUNTER → 2024-10-02 10:06 | Outpatient (BNVA) | payer MEDICARE, SELFPAY | PROVIDERS: PCP Internal Medicine; Visit Provider Nurse Practitioner Family | DX: K50.10 Crohn's disease of large intestine without complications (principal) | CPT/HCPCS: 96372; 99211; J3357 ==

== ENCOUNTER 2024-11-28 09:49 | Outpatient (AMB) | payer MEDICARE, MEDICAID, SELFPAY ==
--- NOTE | 2024-11-28 10:00 | AM.OFFVISNUR ---
Intake Visit Reasons: Stelara Inj Allergies silver (From TEGADERM AG MESH) Allergy (Unknown, Verified 09/20/24 10:18) RASH transparent dressing Allergy (Unknown, Verified 09/20/24 10:18) skin irritation sensitivity haloperidol (From HALDOL) Adverse Reaction (Intermediate, Verified 09/20/24 10:18) UNKNOWN Tegaderm CHG dressing: Allergy (Unknown, Uncoded 09/20/24 10:18) skin irritation Office Meds Stelara 90 mg/mL subcutaneous syringe Performing Provider: ROMEL Del Rio Performing Location: [facility] Administered by: Leatha Evans RN on 11/28/24 10:00 Dose Route Admin Location Dispensed Lot Number Expiration Date [facility] Bail Agent 90 mg subcut Left, Outer Arm (SUBCUT) 1 mL [id number] 03/28/27 36796-995-47 [employer] Total Dispensed Waste 1 mL 0 % Assessment & Plan Assessment & Plan Orders: Orders AMB Ustekinumab Injection Today K50.10 - Crohn's disease of large intestine without complications Coding Level of Care Code Established Pt Est Pt Level 1 (66076) Patient Type Established Medical Decision Making Straight Forward
== END 2024-11-28 10:01 | disposition home or self-care (01) ==
LOC: HO.HGI 09:51
PROVIDERS: PCP Internal Medicine; Visit Provider Nurse Practitioner Family
DX: K50.10 Crohn's disease of large intestine without complications (principal)

== ENCOUNTER → 2024-11-28 09:49 | Outpatient (BNVA) | payer MEDICARE, SELFPAY | PROVIDERS: PCP Internal Medicine; Visit Provider Nurse Practitioner Family | DX: K50.10 Crohn's disease of large intestine without complications (principal) | CPT/HCPCS: 96372; 99211; J3357 ==

== ENCOUNTER 2024-12-20 09:03 | Outpatient (AMB) | payer MEDICARE, SELFPAY ==
[2024-12-20 09:05] VITALS: BP 112/70; PULSE 76; O2SAT 95; BMI 27.8
--- NOTE | 2024-12-20 09:05 | MHC.PC.OV ---
Vital Signs 12/20/24 09:05 Height 5 ft 5 in Weight 167 lb BMI 27.8 BP 112/70 Blood Pressure Location Rt brachial Position Sitting Pulse 76 Pulse Source Pulse Oximeter Pulse Oximetry (%) 95 Intake Visit Reasons: 3 months f/up Allergies silver (From TEGADERM AG MESH) Allergy (Unknown, Verified 12/20/24 09:05) RASH transparent dressing Allergy (Unknown, Verified 12/20/24 09:05) skin irritation sensitivity haloperidol (From HALDOL) Adverse Reaction (Intermediate, Verified 12/20/24 09:05) UNKNOWN Tegaderm CHG dressing: Allergy (Unknown, Uncoded 09/20/24 10:18) skin irritation Medication List - Last Reconciled 12/20/24 by Galen Xie MD acetaminophen 325 mg PO BID PRN 30 days calcium citrate-vitamin D3 315 mg-5 mcg (200 unit) (Calcium Citrate + D) 1 tab PO QAM 90 days cetirizine (Zyrtec) 10 mg PO .q 8 am 90 days cholecalciferol (vitamin D3) (Vitamin D3) 50 mcg PO .q 8 am 90 days famotidine 40 mg PO BEDTIME fluoxetine 20 mg PO DAILY fluticasone propionate 50 mcg/actuation 1 spray intranasal BEDTIME 30 days folic acid 1 mg PO QAM 90 days losartan 25 mg PO .q 8 am naltrexone 50 mg PO DAILY olanzapine (Zyprexa) 5 mg PO BEDTIME omega 7-emy-ojp-fish oil 300-1,000 mg 1 cap orally in am, noon and pm; 90 days polyethylene glycol 3350 17 grams PO DAILY rosuvastatin 5 mg PO .qhs trazodone 100 mg PO BEDTIME ustekinumab (Stelara) 90 mg subcut Q8W Tobacco use date assessed: 09/20/24 Dental Screening Dental Screen Date: 09/20/24 HPI 3 months f/up HPI Details History The patient is a 29-year-old female presenting with blood pressure follow-up and post-foreign body ingestion assessment. Emergency room visit evaluation and for blood pressure follow-up prison staff members present today 2 of them Essential Hypertension: - History of hypertension associated with obesity. - Currently managed with losartan 25 mg. - Previous blood pressure reading was well-controlled at 112/70. Foreign Body Ingestion: Visited [facility] emergency room - Incident on of this month after swallowing a rock. - Initially felt lodged in the throat; patient verbalized discomfort. - CT scan confirmed the stone is now located in the duodenum. - No acute symptoms, adequate comfort, and no distress noted post-event. - patient is able to eat without any abdominal pain and is having regular bowel movements Medical History: - Obesity - Hypertension - Allergies - Anxiety - Prader-Willi syndrome - Lipid disorder - Lymphedema - Lower extremity peripheral vascular disease - Autism - Obstructive sleep apnea - History of pica - Crohn?s disease Medications: - Acetaminophen: for aches and pains - Zyrtec (Cetirizine): for allergies - Vitamin D supplement - Motrin 40 mg: for GERD - Fluoxetine 20 mg: from psychiatry - Fluticasone: for allergic rhinitis - Losartan 25 mg: for blood pressure - Rosuvastatin 5 mg: for lipid control - Stelara: for Crohn?s disease Social History: - Resides in a correction - staff training and development manager: Russell Doe - Difficulty in maintaining consistency with gastroenterology appointments Problem List - Essential Hypertension - Obesity - Allergies - Anxiety - Prader-Willi Syndrome - Lipid Disorder - Lymphedema - Lower Extremity Peripheral Vascular Disease - Autism - Obstructive Sleep Apnea - History of Pica - Crohn's Disease - Grumose Disease - Foreign Body Ingestion Diagnostic results - CT scan: No rock in throat or stomach; rock located in duodenum - Blood test (August): Normal hemoglobin and white count; electrolytes within normal limits; kidney function intact; liver enzyme intact; TSH level 2.03; LDL 63 [facility] - Gastroenterology appointment scheduled Patient Instructions - Continue with current medication regimen unless advised otherwise. - Monitor for any discomfort or changes in symptoms, especially related to the ingestion incident. - Attend upcoming gastroenterology appointment. Review of Systems General: No fever no chills neurological: No headaches no dizziness ear nose throat: No sore throat no hearing difficulty no ear pain cardiovascular: No syncope, no chest pain, no palpitations gastrointestinal: No nausea vomiting or diarrhea endocrine: No polyuria polydipsia no heat intolerance genitourinary: No dysuria skin: No new complaints Physical Exam general: No acute distress HEENT: No acute findings neck: Supple respiratory system: Able to talk in full sentences, no audible wheeze, no stridor cardiovascular: S1-S2 RRR, blood pressure is 112/70 gastrointestinal: No pain, abdominal exam is benign extremities: No new findings, chronic lymphedema bilateral lower extremity OIL ANALYST: Alert, awake, oriented x3, motor intact skin: Normal turgor PFSH Medical History Transaminitis KARLA (obstructive sleep apnea) Somnolence, daytime Morbid obesity Pain of left lower extremity Swelling of left lower extremity Hypertension, essential Mood disorder Developmental delay, mild Vitamin D deficiency Anemia Iron deficiency PTSD (post-traumatic stress disorder) Anxiety Autistic disorder Chronic constipation Acute constipation Colitis Crohn's disease Prader-Willi syndrome Pica in adults Surgical History History of abdominal surgery History of throat surgery Family History Father No problems noted. Mother No problems noted. Social History Household Members: Other Housing: Other Do you presently have visiting nurse or other home services: Yes Alcohol intake: never Comment: No complaints of headache Patient Tobacco Use Status: Never used Tobacco e-Cigarette/Vaping Use: Never Used Second Hand Smoke Exposure: No service: No Current occupational status: disabled Cognitive needs: No Hearing needs: No Vision needs: Yes Female Reproductive History Menstrual Age of Menarche: 11 Questionnaire PHQ-9 Over the last 2 weeks, how often have you been bothered by any of the following problems? 1. Little interest or pleasure in doing things: several days 2. Feeling down, depressed, or hopeless: not at all 3. Trouble falling or staying asleep, or sleeping too much: not at all 4. Feeling tired or having little energy: not at all 5. Poor appetite or overeating: not at all 6. Feeling bad about yourself - or that you are a failure or have let yourself or your family down: not at all 7. Trouble concentrating on things, such as reading the newspaper or watching television: not at all 8. Moving or speaking so slowly that other people could have noticed. Or the opposite - being so fidgety or restless that you have been moving around a lot more than usual: not at all 9. Thoughts that you would be better off or of hurting yourself in some way: not at all Total score: 1 Depression Screening Interpretation: Negative Depression Screening Done: Yes [id number] - PHQ-9 Billing: Yes Source: Developed by Drs. Lucian Garcia, Claudia Diaz, Edi Moore and colleagues, with an educational brian from [employer]. Thrive Questionnaire Date Thrive assessed: 06/16/24 I am a: Patient What is your living situation today?: I have a steady place to live Within the past 12 months, did the food you bought not last and you didn't have the money to get more?: Never true Within the past 12 months, did you worry whether your food would run out before you got money to buy more?: Never true Do you have trouble paying for medicines?: No Do you have trouble getting transportation to medical appointments?: No Do you have trouble paying your heating and electricity bill?: No Do you have trouble taking care of your child, family member or friend?: No Do you have trouble with day-to-day activities such as bathing, preparing meals, shopping, managing finances, etc.?: No Are you currently unemployed and looking for a job?: No Are you interested in more education?: No Please select the resources that you would like help with: None Currently or been in a relationship where the following occur: No concerns reported THRIVE Score: 0 AUDIT C Alcohol Use Questionnaire (AUDIT-C) 1. How often do you have a drink containing alcohol?: Never 3. How often do you have six or more drinks on one occasion?: Never Total Score: 0 BEVERLEY-7 AMB Questionnaire BEVERLEY-7 Date BEVERLEY - 7 assessed: 06/16/24 Feeling nervous, anxious, or on edge: 0 = Not at all Not being able to stop or control worryin = Not at all Worrying too much about different things: 0 = Not at all Trouble relaxin = Not at all Being so restless that it is hard to sit still: 0 = Not at all Becoming easily annoyed or irritable: 0 = Not at all Feeling afraid as if something awful might happen: 0 = Not at all Total BEVERLEY-7 score (0-4 normal; 5-9 mild; 10-14 moderate; 15-21 severe): 0 Source: Developed by Claudia Villalba Kurt Kroenke and colleagues, with an educational brian from [employer]. BEVERLEY-7 Assessment Billing BEVERLEY-7 Assessment Tool: BEVERLEY-7 Assessment 38821 Physical exam (Primary Care) Vital Signs: Last Vital Signs Pulse 76 12/20/24 09:05 BP 112/70 12/20/24 09:05 Pulse Ox 95 12/20/24 09:05 BMI result Body Mass Index 27.8 Tobacco/Smoking Status: Tobacco use Status Tobacco use date assessed 09/20/24 12/20/24 09:06 Patient Tobacco Use Status Never used Tobacco 12/20/24 09:06 e-Cigarette/Vaping Use Never Used 12/20/24 09:06 PHQ-9: PHQ-9 Score PHQ-9: Total score 1 12/20/24 09:23 Depression Screening Interpretation: Negative Thrive Assessment: Date of Thrive Assessment Date Thrive assessed 06/16/24 12/20/24 09:06 Currently or been in a relationship where the following occur: No concerns reported Coding Level of Care Code Est Pt Level 5 (22986) Diagnoses Hypertension, essential I10 Prader-Willi syndrome Q87.11 Lipid disorder E78.9 Environmental allergies Z91.09 Autistic disorder F84.0 Crohn's disease of large intestine without complication K50.10 Gastrointestinal tract location: large intestine Digestive disease complication type: without complication Chronic GERD K21.9 Psychiatric illness F99 Pica F50.89 H/O foreign body ingestion Z87.821 Additional Codes PHQ-9 - 68639 - PHQ-9 Billing: Yes ([id number]) BEVERLEY-7 Assessment Billing - BEVERLEY-7 Assessment Tool: BEVERLEY-7 Assessment 20332 ([id number]) Time Spent (min) 40 Comment Reviewing hospital notes/imaging/labs/xpup-rs-yoyr/paperwork for correction/coordination Assessment & Plan Assessment & Plan (1) Hypertension, essential: Code(s): I10 - Essential (primary) hypertension Category: Medical (2) Prader-Willi syndrome: Comment: Patient has developmental disorder secondary to Prader Willi Syndrome Code(s): Q87.11 - Prader-Willi syndrome Category: Medical (3) Lipid disorder: Code(s): E78.9 - Disorder of lipoprotein metabolism, unspecified Category: Medical (4) Environmental allergies: Code(s): Z91.09 - Other allergy status, other than to drugs and biological substances Category: Medical (5) Autistic disorder: Code(s): F84.0 - Autistic disorder Category: Medical (6) Crohn's disease: Code(s): K50.90 - Crohn's disease, unspecified, without complications Category: Medical Qualifiers: Gastrointestinal tract location: large intestine Digestive disease complication type: without complication Qualified Code(s): K50.10 - Crohn's disease of large intestine without complications (7) Chronic GERD: Code(s): K21.9 - Gastro-esophageal reflux disease without esophagitis Category: Medical (8) Psychiatric illness: Code(s): F99 - Mental disorder, not otherwise specified Category: Medical (9) Pica: Code(s): F50.89 - Other specified eating disorder Category: Medical (10) H/O foreign body ingestion: Code(s): Z87.821 - Personal history of retained foreign body fully removed Category: Medical Plan History The patient is a 29-year-old female presenting with blood pressure follow-up and post-foreign body ingestion assessment. Emergency room visit evaluation and for blood pressure follow-up prison staff members present today 2 of them Essential Hypertension: - History of hypertension associated with obesity. - Currently managed with losartan 25 mg. - Previous blood pressure reading was well-controlled at 112/70. Foreign Body Ingestion: Visited [facility] emergency room - Incident on of this month after swallowing a rock. - Initially felt lodged in the throat; patient verbalized discomfort. - CT scan confirmed the stone is now located in the duodenum. - No acute symptoms, adequate comfort, and no distress noted post-event. - patient is able to eat without any abdominal pain and is having regular bowel movements Medical History: - Obesity - Hypertension - Allergies - Anxiety - Prader-Willi syndrome - Lipid disorder - Lymphedema - Lower extremity peripheral vascular disease - Autism - Obstructive sleep apnea - History of pica - Crohn?s disease Medications: - Acetaminophen: for aches and pains - Zyrtec (Cetirizine): for allergies - Vitamin D supplement - Motrin 40 mg: for GERD - Fluoxetine 20 mg: from psychiatry - Fluticasone: for allergic rhinitis - Losartan 25 mg: for blood pressure - Rosuvastatin 5 mg: for lipid control - Stelara: for Crohn?s disease Social History: - Resides in a correction - staff training and development manager: Russell Deo - Difficulty in maintaining consistency with gastroenterology appointments Problem List - Essential Hypertension - Obesity - Allergies - Anxiety - Prader-Willi Syndrome - Lipid Disorder - Lymphedema - Lower Extremity Peripheral Vascular Disease - Autism - Obstructive Sleep Apnea - History of Pica - Crohn's Disease - Grumose Disease - Foreign Body Ingestion Diagnostic results - CT scan: No rock in throat or stomach; rock located in duodenum - Blood test (August): Normal hemoglobin and white count; electrolytes within normal limits; kidney function intact; liver enzyme intact; TSH level 2.03; LDL 63 [facility] - Gastroenterology appointment scheduled Patient Instructions - Continue with current medication regimen unless advised otherwise. - Monitor for any discomfort or changes in symptoms, especially related to the ingestion incident. - Attend upcoming gastroenterology appointment.
== END 2024-12-20 09:46 | disposition home or self-care (01) ==
LOC: HO.HMCC 09:04
PROVIDERS: PCP Internal Medicine; Visit Provider Internal Medicine
DX: I10 Essential (primary) hypertension (principal); Q87.11 Prader-Willi syndrome; K50.10 Crohn's disease of large intestine without complications; E78.9 Disorder of lipoprotein metabolism, unspecified; Z91.09 Other allergy status, other than to drugs and biological substances; F84.0 Autistic disorder; K21.9 Gastro-esophageal reflux disease without esophagitis; F99 Mental disorder, not otherwise specified; F50.89 Other specified eating disorder; Z87.821 Personal history of retained foreign body fully removed

== ENCOUNTER → 2024-12-20 09:03 | Outpatient (BNVA) | payer MEDICARE, SELFPAY | PROVIDERS: PCP Internal Medicine; Visit Provider Internal Medicine | DX: I10 Essential (primary) hypertension (principal); Q87.11 Prader-Willi syndrome; E78.9 Disorder of lipoprotein metabolism, unspecified; Z91.09 Other allergy status, other than to drugs and biological substances; K50.10 Crohn's disease of large intestine without complications; F84.0 Autistic disorder; K21.9 Gastro-esophageal reflux disease without esophagitis; F99 Mental disorder, not otherwise specified; F50.89 Other specified eating disorder; Z87.821 Personal history of retained foreign body fully removed | CPT/HCPCS: 96127; 99212 ==

== ENCOUNTER 2024-12-22 10:17 | Outpatient (AMB) | payer MEDICARE, SELFPAY ==
--- NOTE | 2024-12-22 10:19 | A.OFFVIS_ITS ---
Vital Signs 12/22/24 10:24 Height 5 ft 5 in Weight 167 lb BMI 27.8 BP 126/62 Blood Pressure Location Lt brachial Position Sitting Pulse 74 Pulse Source Pulse Oximeter Pulse Oximetry (%) 96 Oxygen Delivery Method Room Air Intake Visit Reasons: 6 mo f/u Crohn's Intake Note: ESTABLISHED PATIENT for mgmt of Crohn's. Chief Complaint; Per staff, pt has been having normal BMs and has been doing OK with consumption of normal diet. Pt reports having occasional reflux but not consistently. Hand Thermal Cutter Required: No Accompanied by: Computer Graphics Illustrator Allergies silver (From TEGADERM AG MESH) Allergy (Unknown, Verified 12/22/24 10:19) RASH transparent dressing Allergy (Unknown, Verified 12/22/24 10:19) skin irritation sensitivity haloperidol (From HALDOL) Adverse Reaction (Intermediate, Verified 12/22/24 10:19) UNKNOWN Tegaderm CHG dressing: Allergy (Unknown, Uncoded 12/22/24 10:19) skin irritation HPI HPI 6 mo f/u Crohn's: Details: LAST VISIT Crohn's disease Transaminitis Constipation by delayed colonic transit Nonalcoholic fatty liver Plan Continue MiraLax as needed. Increase fluid intake and activity to promote better bowel motility. Continue Stelara injections. Patient has been set up with our nurse. History of fatty liver disease will send patient for ultrasound with liver elastography. Normal liver enzymes in March. Patient lost 30 lb since last visit and is feeling well. Follow-up in 6 months, sooner on as needed basis. Patient is agreeable to this plan and verbalizes understanding of instructions. She was given the opportunity to ask questions and all questions answered. ? Thank you for allowing me to participate in her care Orders US abdomen agrawal w elastography 06/19/24 K76.0 Changed Changed From polyethylene glycol 3350 Hold for diarrhea 17 grams PO DAILY 90 days 1,530 grams 0RF constipation Changed To polyethylene glycol 3350 (Miralax) Hold for diarrhea 17 grams PO DAILY PRN 510 grams 1RF constipation 90 days TODAY'S VISIT Patient presents 2 staff members from long-term and staff supplements information. Hx NAFLD, crohns, GERD. Staff members reports that things are going really well. Patient is following a high protein diet. Staff meal preps all her meals following a NAFLD diet. Patient has been effectively losing weight due to this.? Crohn?s is well controlled with stelara injections. Staff reports that her bowel movements are daily, soft brown and formed. They keep record of each bowel movement. Has no difficulties using bathroom. Will be due for colonoscopy next year and will discuss at next visit.? GERD is well managed with famotidine, staff reports that she has no complaints of refractory reflux symptoms. However patient is reporting today that she feels like her heartburn is worse and she feels the burning sensation in her e pigastric area.? Today denies dysphagia, dyspepsia, odynophagia, early satiety, lower abdominal pain, belching, change in bowel habits, diarrhea, loose stools, constipation, bloating, melena, hematochezia, excessive flatus, ribbon like stools, nausea, vomiting, unintentional weight loss.? [facility] Medical History Transaminitis KARLA (obstructive sleep apnea) Somnolence, daytime Morbid obesity Pain of left lower extremity Swelling of left lower extremity Hypertension, essential Mood disorder Developmental delay, mild Vitamin D deficiency Anemia Iron deficiency PTSD (post-traumatic stress disorder) Anxiety Autistic disorder Chronic constipation Acute constipation Colitis Crohn's disease Prader-Willi syndrome Pica in adults Surgical History History of abdominal surgery History of throat surgery Family History Father No problems noted. Mother No problems noted. Social History Household Members: Other Housing: Other Do you presently have visiting nurse or other home services: Yes Alcohol intake: never Comment: No complaints of headache Patient Tobacco Use Status: Never used Tobacco e-Cigarette/Vaping Use: Never Used Second Hand Smoke Exposure: No service: No Current occupational status: disabled Cognitive needs: No Hearing needs: No Vision needs: Yes Female Reproductive History Menstrual Age of Menarche: 11 Review of Systems Const Denies weight gain and Denies weight loss ENT Reports no additional complaints, Denies dysphagia and Denies odynophagia Card Reports no additional complaints Resp Reports no additional complaints GI Denies abdominal pain, Denies belching, Denies melena, Denies bloating, Denies change in bowel habits, Denies dysphagia, Denies excessive flatus, Denies dyspepsia, Denies heartburn, Denies diarrhea, Denies loose stools, Denies nausea, Denies odynophagia and Denies vomiting Musc Reports no additional complaints Neuro Reports no additional complaints Psych Reports no additional complaints Endo Reports no additional complaints Physical Exam Vital Signs: Last Vital Signs Pulse 74 12/22/24 10:24 BP 126/62 12/22/24 10:24 Pulse Ox 96 12/22/24 10:24 Oxygen Delivery Method Room Air 12/22/24 10:24 BMI result Body Mass Index 27.8 Const General: no acute distress Nutritional Appearance: obese Resp Effort & Inspection: normal respiratory effort, able to speak in complete sentences, no tracheal deviation and symmetric chest movement Auscultation: clear to auscultation bilaterally Cardio Rate: regular rate GI Inspection: Yes normal to inspection and Yes obesity Palpation (GI): Soft to palpation Auscultation: normal bowel sounds General: Yes no CVA tenderness Back/Spine/Pelvis Back: no CVA tenderness Skin General skin exam: elasticity normal, turgor normal and dry skin Psych Appearance: grossly normal Assessment & Plan Assessment & Plan (1) Chronic GERD: Code(s): K21.9 - Gastro-esophageal reflux disease without esophagitis Category: Medical (2) H/O foreign body ingestion: Code(s): Z87.821 - Personal history of retained foreign body fully removed Category: Medical (3) LFT elevation: Code(s): R79.89 - Other specified abnormal findings of blood chemistry Category: Medical (4) Transaminitis: Code(s): R74.01 - Elevation of levels of liver transaminase levels Category: Medical (5) Chronic constipation: Code(s): K59.09 - Other constipation Category: Medical Plan Will order upper GI barium swallow to assess any GERD changes given the discrepancy in reports from staff and patient. Continue with stelara injections, famotidine and dietary modifications for NAFLD. Otherwise follow up in 6 months or sooner if needed.? Will discuss colonoscopy next visit and will order 1. Staff will call if patient will have any GI concerning symptoms. Both patient and staff members are agreeable to plan of care. They were given the opportunity to ask questions and all questions answered. Thank you for allowing me to participate in her care Orders: Orders FL upper GI w air w Ba Swallow Today K21.9 - Gastro-esophageal reflux disease without esophagitis Coding Level of Care Code Est Pt Level 4 (02817) Complex EM visit Add On G2211 Diagnoses Chronic GERD K21.9 H/O foreign body ingestion Z87.821 LFT elevation R79.89 Transaminitis R74.01 Chronic constipation K59.09 Time Spent (min) 35 Comment 25 minutes spent with patient and additional 10 minutes spent reviewing her records
[2024-12-22 10:24] VITALS: BP 126/62; PULSE 74; O2SAT 96; BMI 27.8
== END 2024-12-22 10:53 | disposition home or self-care (01) ==
LOC: HO.HGI 10:18
PROVIDERS: PCP Internal Medicine; Visit Provider Nurse Practitioner Family
DX: K21.9 Gastro-esophageal reflux disease without esophagitis (principal); Z87.821 Personal history of retained foreign body fully removed; R79.89 Other specified abnormal findings of blood chemistry; R74.01 Elevation of levels of liver transaminase levels; K59.09 Other constipation
CPT/HCPCS: 99214; G2211

== ENCOUNTER → 2024-12-22 10:17 | Outpatient (BNVA) | payer MEDICARE, SELFPAY | PROVIDERS: PCP Internal Medicine; Visit Provider Nurse Practitioner Family | DX: K21.9 Gastro-esophageal reflux disease without esophagitis (principal); R79.89 Other specified abnormal findings of blood chemistry; K59.09 Other constipation; R74.01 Elevation of levels of liver transaminase levels; Z87.821 Personal history of retained foreign body fully removed | CPT/HCPCS: 99212 ==

== ENCOUNTER 2025-01-23 09:54 | Outpatient (AMB) | payer MEDICARE, SELFPAY ==
--- NOTE | 2025-01-23 10:19 | MHC.OFFVIS ---
Intake Visit Reasons: Stelara Allergies silver (From TEGADERM AG MESH) Allergy (Unknown, Verified 12/22/24 10:19) RASH transparent dressing Allergy (Unknown, Verified 12/22/24 10:19) skin irritation sensitivity haloperidol (From HALDOL) Adverse Reaction (Intermediate, Verified 12/22/24 10:19) UNKNOWN Tegaderm CHG dressing: Allergy (Unknown, Uncoded 12/22/24 10:19) skin irritation PFSH Medical History Transaminitis KARLA (obstructive sleep apnea) Somnolence, daytime Morbid obesity Pain of left lower extremity Swelling of left lower extremity Hypertension, essential Mood disorder Developmental delay, mild Vitamin D deficiency Anemia Iron deficiency PTSD (post-traumatic stress disorder) Anxiety Autistic disorder Chronic constipation Acute constipation Colitis Crohn's disease Prader-Willi syndrome Pica in adults Surgical History History of abdominal surgery History of throat surgery Family History Father No problems noted. Mother No problems noted. Social History Household Members: Other Housing: Other Do you presently have visiting nurse or other home services: Yes Alcohol intake: never Comment: No complaints of headache Patient Tobacco Use Status: Never used Tobacco e-Cigarette/Vaping Use: Never Used Second Hand Smoke Exposure: No service: No Current occupational status: disabled Cognitive needs: No Hearing needs: No Vision needs: Yes Female Reproductive History Menstrual Age of Menarche: 11 Coding
--- NOTE | 2025-01-23 10:35 | AM.OFFVISNUR ---
Intake Visit Reasons: Stelara Allergies silver (From TEGADERM AG MESH) Allergy (Unknown, Verified 12/22/24 10:19) RASH transparent dressing Allergy (Unknown, Verified 12/22/24 10:19) skin irritation sensitivity haloperidol (From HALDOL) Adverse Reaction (Intermediate, Verified 12/22/24 10:19) UNKNOWN Tegaderm CHG dressing: Allergy (Unknown, Uncoded 12/22/24 10:19) skin irritation Nursing Note pt came into office- with 2 staff members doing well. Stelara 90mg SQ left arm tolerated well, return in 8 weeks. Office Meds Stelara 90 mg/mL subcutaneous syringe Performing Provider: ROMEL Del Rio Performing Location: [facility] Administered by: Starr Herman RN on 01/23/25 10:10 Dose Route Admin Location Dispensed Lot Number Expiration Date [facility] Watch Parts Inspector 90 mg subcut left arm 1 mL [id number] 03/29/27 34731-634-28 [employer] Total Dispensed Waste 1 mL 0 % Assessment & Plan Assessment & Plan Orders: Orders AMB Ustekinumab Injection Today K50.10 - Crohn's disease of large intestine without complications Coding
== END 2025-01-23 10:46 | disposition home or self-care (01) ==
LOC: HO.HGI 09:56
PROVIDERS: PCP Internal Medicine; Visit Provider Nurse Practitioner Family
DX: K50.10 Crohn's disease of large intestine without complications (principal)

== ENCOUNTER → 2025-01-23 09:54 | Outpatient (BNVA) | payer MEDICARE, SELFPAY | PROVIDERS: PCP Internal Medicine; Visit Provider Nurse Practitioner Family | DX: K50.10 Crohn's disease of large intestine without complications (principal); Z79.899 Other long term (current) drug therapy | CPT/HCPCS: 96372; J3357 ==

== ENCOUNTER 2025-02-14 12:27 | Outpatient (AMB) | payer MEDICARE, MEDICAID, SELFPAY ==
--- NOTE | 2025-02-14 12:29 | MHC.PC.OV ---
Vital Signs 02/14/25 12:31 Height 5 ft 5 in Weight 171 lb BMI 28.5 BP 122/70 Blood Pressure Location Lt brachial Position Sitting Pulse 73 Pulse Source Pulse Oximeter Pulse Oximetry (%) 96 Intake Visit Reasons: Annual PE Allergies silver (From TEGADERM AG MESH) Allergy (Unknown, Verified 02/14/25 12:31) RASH transparent dressing Allergy (Unknown, Verified 02/14/25 12:31) skin irritation sensitivity haloperidol (From HALDOL) Adverse Reaction (Intermediate, Verified 02/14/25 12:31) UNKNOWN Tegaderm CHG dressing: Allergy (Unknown, Uncoded 12/22/24 10:19) skin irritation Medication List - Last Reconciled 02/14/25 by Galen Xie MD acetaminophen 325 mg PO BID PRN 30 days calcium citrate-vitamin D3 315 mg-5 mcg (200 unit) (Calcium Citrate + D) 1 tab PO QAM 90 days cetirizine (Zyrtec) 10 mg PO .q 8 am 90 days cholecalciferol (vitamin D3) (Vitamin D3) 50 mcg PO .q 8 am 90 days famotidine 40 mg PO BEDTIME fluoxetine 20 mg PO DAILY fluticasone propionate 50 mcg/actuation 1 spray intranasal BEDTIME 30 days folic acid 1 mg PO QAM 90 days losartan 25 mg PO .q 8 am naltrexone 50 mg PO DAILY olanzapine (Zyprexa) 5 mg PO BEDTIME omega 6-grc-xnd-fish oil 300-1,000 mg 1 cap orally in am, noon and pm; 90 days polyethylene glycol 3350 17 grams PO DAILY rosuvastatin 5 mg PO .qhs trazodone 100 mg PO BEDTIME ustekinumab (Stelara) 90 mg subcut Q8W Tobacco use date assessed: 09/20/24 Dental Screening Dental Screen Date: 09/20/24 HPI HPI Comments History of Present Illness Details History of Present Illness The patient is a 29-year-old female presenting for a physical exam. Patient has H/o - Obesity - Hypertension - Allergies - Anxiety - Prader-Willi syndrome - Lipid disorder - Lymphedema - Lower extremity peripheral vascular disease - Autism - Obstructive sleep apnea - History of pica - Crohn?s disease Health Maintenance: - The patient has an upcoming STYLIST ASSISTANT visit on February 26. - Her last blood tests were in August, and she is due for repeat labs next month as they are performed every six months. - The patient received an influenza vaccine last year. Dental Care: - The patient is scheduled for a dental removal surgery tomorrow that will be performed under anesthesia. Social History: - The patient reports that she exercises. Health Maintenance - An influenza vaccine was administered during the visit. - Blood pressure was 122/70 mmHg. - The patient is due for routine blood tests next month; the last set was completed in August. - The patient has an upcoming STYLIST ASSISTANT appointment on February 26. 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 - dental surgery. - Psych [facility] Medical History Inflammatory bowel disease Transaminitis KARLA (obstructive sleep apnea) Somnolence, daytime Morbid obesity Pain of left lower extremity Swelling of left lower extremity Hypertension, essential Mood disorder Developmental delay, mild Vitamin D deficiency Anemia Iron deficiency PTSD (post-traumatic stress disorder) Anxiety Autistic disorder Chronic constipation Acute constipation Colitis Crohn's disease Prader-Willi syndrome Pica in adults Surgical History History of abdominal surgery History of throat surgery Family History Father No problems noted. Mother No problems noted. Social History Household Members: Other Housing: Other Do you presently have visiting nurse or other home services: Yes Alcohol intake: never Comment: No complaints of headache Patient Tobacco Use Status: Never used Tobacco e-Cigarette/Vaping Use: Never Used Second Hand Smoke Exposure: No service: No Current occupational status: disabled Cognitive needs: No Hearing needs: No Vision needs: Yes Female Reproductive History Menstrual Age of Menarche: 11 Questionnaire Thrive Questionnaire Date Thrive assessed: 06/16/24 I am a: Patient What is your living situation today?: I have a steady place to live Within the past 12 months, did the food you bought not last and you didn't have the money to get more?: Never true Within the past 12 months, did you worry whether your food would run out before you got money to buy more?: Never true Do you have trouble paying for medicines?: No Do you have trouble getting transportation to medical appointments?: No Do you have trouble paying your heating and electricity bill?: No Do you have trouble taking care of your child, family member or friend?: No Do you have trouble with day-to-day activities such as bathing, preparing meals, shopping, managing finances, etc.?: No Are you currently unemployed and looking for a job?: No Are you interested in more education?: No Please select the resources that you would like help with: None Currently or been in a relationship where the following occur: No concerns reported THRIVE Score: 0 AUDIT C Alcohol Use Questionnaire (AUDIT-C) 3. How often do you have six or more drinks on one occasion?: Never Total Score: 0 BEVERLEY-7 AMB Questionnaire BEVERLEY-7 Date BEVERLEY - 7 assessed: 06/16/24 Source: Developed by Drs. Lucian Garcia, Claudia Diaz, Edi Moore and colleagues, with an educational brian from [employer]. Review of Systems Narrative Review of Systems - General: No fever no chills - Neurological: No headaches no dizziness - Ear nose throat: No sore throat no hearing difficulty no ear pain - Cardiovascular: No syncope, no chest pain, no palpitations - Gastrointestinal: No nausea vomiting or diarrhea - Skin: No new complaints Physical exam (Primary Care) Vital Signs: Last Vital Signs Pulse 73 02/14/25 12:31 BP 122/70 02/14/25 12:31 Pulse Ox 96 02/14/25 12:31 BMI result Body Mass Index 28.5 Tobacco/Smoking Status: Tobacco use Status Tobacco use date assessed 09/20/24 02/14/25 12:31 Patient Tobacco Use Status Never used Tobacco 02/14/25 12:31 e-Cigarette/Vaping Use Never Used 02/14/25 12:31 Thrive Assessment: Date of Thrive Assessment Date Thrive assessed 06/16/24 02/14/25 12:31 Currently or been in a relationship where the following occur: No concerns reported Narrative Diagnostic results - Vitals: Blood pressure 122/70 mmHg. - Labs: Last completed in August. Physical Exam General: Cooperative, healthy appearing, comfortable, no acute distress Head: Normal to inspection Ears:no wax impaction , no pain Nose: Normal external nose present Face and sinus: no acute findings Eyes: Appearance normal, extraocular movement intact pupils reactive Neck: Normal visual inspection and supple Respiratory: Normal respiratory effort and able to speak in complete sentences. Clear to auscultation, no stridor Cardiovascular: S1 and S2 RRR GI: Normal to inspection. Soft to palpation and nontender Skin: Turgor normal, no acute findings Neuro: non focal Extremities: no edema . Office Procedures Flu Questionnaire Does the patient have a severe egg allergy?: No Does the patient have severe life threatening allergies?: No Does the patient have a fever or illness today?: No Has the patient ever had Guillain-[place] Syndrome?: No Has the patient ever had any past reaction to a flu shot?: No Immunizations Fluarix [id number] (PF) 45 mcg (15 mcg x 3)/0.5 mL IM syringe Performing Provider: Galen Xie MD Performing Location: [facility] Adult [facility] Administered by: CHINYERE Persaud on 02/14/25 12:53 Dose Route Admin Location Dispensed Lot Number Expiration Date [facility] [place] [employer] 0.5 mL IM Left Deltoid 0.5 mL [id number] 09/25/25 [id number] [employer] VIS Given Date VIS Provided VIS Publication Date 02/14/25 Single Vaccine 24 Eligibility Eligibility Date Funding Source Not [facility] Eligible 02/14/25 Private Coding Level of Care Code Est Pt Level 3 (08511) Est Pt Prev Care 18-39y(15415) Diagnoses Encounter for general adult medical examination with abnormal findings Z00.01 Hypertension, essential I10 Prader-Willi syndrome Q87.11 Lipid disorder E78.9 Environmental allergies Z91.09 Autistic disorder F84.0 Crohn's disease of large intestine without complication K50.10 Gastrointestinal tract location: large intestine Digestive disease complication type: without complication Chronic GERD K21.9 Psychiatric illness F99 Pica F50.89 H/O foreign body ingestion Z87.821 Vitamin D deficiency E55.9 Assessment & Plan Assessment & Plan (1) Encounter for general adult medical examination with abnormal findings: Code(s): Z00.01 - Encounter for general adult medical examination with abnormal findings Category: Medical (2) Hypertension, essential: Code(s): I10 - Essential (primary) hypertension Category: Medical (3) Prader-Willi syndrome: Comment: Patient has developmental disorder secondary to Prader Willi Syndrome Code(s): Q87.11 - Prader-Willi syndrome Category: Medical (4) Lipid disorder: Code(s): E78.9 - Disorder of lipoprotein metabolism, unspecified Category: Medical (5) Environmental allergies: Code(s): Z91.09 - Other allergy status, other than to drugs and biological substances Category: Medical (6) Autistic disorder: Code(s): F84.0 - Autistic disorder Category: Medical (7) Crohn's disease: Code(s): K50.90 - Crohn's disease, unspecified, without complications Category: Medical Qualifiers: Gastrointestinal tract location: large intestine Digestive disease complication type: without complication Qualified Code(s): K50.10 - Crohn's disease of large intestine without complications (8) Chronic GERD: Code(s): K21.9 - Gastro-esophageal reflux disease without esophagitis Category: Medical (9) Psychiatric illness: Code(s): F99 - Mental disorder, not otherwise specified Category: Medical (10) Pica: Code(s): F50.89 - Other specified eating disorder Category: Medical (11) H/O foreign body ingestion: Code(s): Z87.821 - Personal history of retained foreign body fully removed Category: Medical (12) Vitamin D deficiency: Code(s): E55.9 - Vitamin D deficiency, unspecified Category: Medical Plan Patient Instructions - An order will be placed for your routine blood tests, which are due next month. - A nurse will be in to give you the flu vaccine. - Please schedule a follow-up appointment in about four months to check your blood pressure. - continue meds f/u 4 M Orders: Orders Comprehensive Met. Panel Today E55.9 - Vitamin D deficiency, unspecified, E78.9 - Disorder of lipoprotein metabolism, unspecified, I10 - Essential (primary) hypertension, K50.10 - Crohn's disease of large intestine without complications, Q87.11 - Prader-Willi syndrome, Z00.01 - Encounter for general adult medical examination with abnormal findings LDL Cholesterol Direct Today E55.9 - Vitamin D deficiency, unspecified, E78.9 - Disorder of lipoprotein metabolism, unspecified, I10 - Essential (primary) hypertension, K50.10 - Crohn's disease of large intestine without complications, Q87.11 - Prader-Willi syndrome, Z00.01 - Encounter for general adult medical examination with abnormal findings TSH reflex Free T4 Today E55.9 - Vitamin D deficiency, unspecified, E78.9 - Disorder of lipoprotein metabolism, unspecified, I10 - Essential (primary) hypertension, K50.10 - Crohn's disease of large intestine without complications, Q87.11 - Prader-Willi syndrome, Z00.01 - Encounter for general adult medical examination with abnormal findings Vitamin B12 Today E55.9 - Vitamin D deficiency, unspecified, E78.9 - Disorder of lipoprotein metabolism, unspecified, I10 - Essential (primary) hypertension, K50.10 - Crohn's disease of large intestine without complications, Q87.11 - Prader-Willi syndrome, Z00.01 - Encounter for general adult medical examination with abnormal findings Vitamin D 25-OH (D2 and D3) Today E55.9 - Vitamin D deficiency, unspecified, E78.9 - Disorder of lipoprotein metabolism, unspecified, I10 - Essential (primary) hypertension, K50.10 - Crohn's disease of large intestine without complications, Q87.11 - Prader-Willi syndrome, Z00.01 - Encounter for general adult medical examination with abnormal findings Influenza [id number] Immunization Today Z23 - Encounter for immunization Complete Blood Count Auto Diff Today E55.9 - Vitamin D deficiency, unspecified, E78.9 - Disorder of lipoprotein metabolism, unspecified, I10 - Essential (primary) hypertension, K50.10 - Crohn's disease of large intestine without complications, Q87.11 - Prader-Willi syndrome, Z00.01 - Encounter for general adult medical examination with abnormal findings
[2025-02-14 12:31] VITALS: BP 122/70; PULSE 73; O2SAT 96; BMI 28.5
--- OUTSIDE RECORDS SUMMARY | 2025-02-14 23:44 | XMS_ITS | Data Portability ---
Author Organization RASHIDA [facility]line [facility], [address] Address [address] [place] [address] Care Team Providers Care Investor Relations Manager Name Role Phone GALE HERRON Primary Care [...] anybody to take it out. 2022 023 [facility], [address] [place], [address], 3 11:14:58 Procedures None recorded. Surgeries None recorded. Imaging None recorded. Medication Orders None recorded. Patient TargetsNo targets recorded. Patient Instructions Encounter Date Encounter Id Patient Instructions Last Modified By Organization Details Last Modified Time 07/05/2022 [id number] How do you know when anxiety is [...] Address Organization Details Recorded Time Crohn's disease 22216366 Active 2022 [facility] 10:40:54 Hypertensive disorder 65936661 Active 2022 RASHIDA [facility] 3 10:41:11 Anxiety 32417426 Active 2022 Celina sims PA [facility] 3 10:41:27 Problem Notes None recorded. Medical Equipment None Reported. Allergies Allergen ID Allergen Name Allergen Category Reaction Reaction Severity Criticality Documentation Date Start Date Code Code System Note Provider Name and Address Organization Details Recorded Time 008954 Haldol medicatio n Not available Not available Not available 07/05/2022 32421 9 RxNorm Celina sims PA [facility] 3 10:38:19 [id number] Tegaderm medicatio n Not available Not available Not available 07/05/2022 Celina sims [facility] 3 10:38:24 Medications Name [...] 62 /min 18 /min 130/70 mm[Hg] Celina Cabrera [facility] 3 10:48:04 Social History Question Answer Notes LastModified by [employer] Details LastModified Time Tobacco Smoking Status Never Smoker Celina sims [facility] 07/05/2022 10:41:44 Have You Recently Traveled Abroad? No Information not available 07/05/2022 Sex: Unknown Functional Status Question Answer Note LastModified by [employer] Details LastModified Time Do you use any [...] Diagnosis SNOMED-CT Code Diagnosis ICD10 Code Diagnosis IMO Codes Diagnosis Note [id number] [address] [place] [address] 11/21/2018 11:59:56 11/21/2018 12:40:12 [id number] [address] [place] [address] 01/12/2019 09:59:09 01/12/2019 10:39:14 [id number] [address] [place] [address] 09/18/2021 16:11:26 09/18/2021 17:00:09 [id number] Rishi Cohen NP [address] [place] [address] 07/05/2022 09:20:30 07/05/2022 11:14:52 Acute urinary tract infection [id number] N39.0 Unable to obtain urine sample. Foreign mario dy in pharynx 12299066 T17.208A Health Concerns Section Related Observation LastModified by Organization Detai ls LastModified Time None Recorded Concern Status LastModified by Organization Details LastModified Time None Recorded Advance Directives Directive None Recorded Payers Insurance Date Sequence Insurance Name Policy Number Policy Ko Covered Member ID Ko Member ID Guarantor Name 07/05/2022 1 [place]: [employer] [facility] [id number] [facility] 07/05/2022 2 [place] [facility] [id number] [facility] Notes Date Note Type Note Provider Name and Address Organization Details Recorded Time 3 text/html Urinary Complaint FemaleReported by PatientUrinary problemsFor uti symptoms, patient reportspain during urinationandurinary frequencybut reportsno blood in the urine,no vaginal discharge,no urgency,no pain in the flank,no fever/chills,no incontinence,no recurrent uti, andno known exposure to std. For source of patient information, patient reportsinformation obtained from patientandpatient arrived at urgent care ambulatory. For duration, patient reports2 days. For modifying factors, patient reportsnothing gives relief.frequency and urgency x 2 day. denies any fever or fever with chills, denies any History of renal stone or bladder issues. CoughReported by PatientHPIFor source of patient information, patient reportsinformation obtained from patient,patient arrived at urgent care ambulatory, andlearning styles: auditory. For severity, patient reportsimproving. For timing, patient reportsimproving. For context, patient reportspatient denies vapingandnon-smoker. For associated symptoms, patient reportsno fever,no chills,no chest pain,no heartburn,no nausea,no vomiting,no edema,no agitation,no wheezing, andno post nasal drip. Patient has behaviour problems brought in by two attendants from long term. accidently try to swallow water bottle cap and will not allow anybody to take it out. Also might have UTI affecting her Mood. Rishi Cohen NP [address] [place], [address], [place] - [facility] 07/05/2022 11:21:53 OBGyn Episode No OBEpisode recorded.
== END 2025-02-14 12:56 | disposition home or self-care (01) ==
LOC: HO.HMCC 12:28
PROVIDERS: PCP Internal Medicine; Visit Provider Internal Medicine
DX: Z00.01 Encounter for general adult medical examination with abnormal findings (principal); K50.10 Crohn's disease of large intestine without complications; I10 Essential (primary) hypertension; Q87.11 Prader-Willi syndrome; E78.9 Disorder of lipoprotein metabolism, unspecified; Z91.09 Other allergy status, other than to drugs and biological substances; F84.0 Autistic disorder; K21.9 Gastro-esophageal reflux disease without esophagitis; F99 Mental disorder, not otherwise specified; F50.89 Other specified eating disorder; Z87.821 Personal history of retained foreign body fully removed; E55.9 Vitamin D deficiency, unspecified; Z23 Encounter for immunization

== ENCOUNTER → 2025-02-14 12:27 | Outpatient (BNVA) | payer MEDICARE, MEDICAID, SELFPAY | PROVIDERS: PCP Internal Medicine; Visit Provider Internal Medicine | DX: I10 Essential (primary) hypertension (principal); K50.10 Crohn's disease of large intestine without complications; F33.1 Major depressive disorder, recurrent, moderate; Z91.09 Other allergy status, other than to drugs and biological substances; I73.9 Peripheral vascular disease, unspecified; I89.0 Lymphedema, not elsewhere classified; Z00.01 Encounter for general adult medical examination with abnormal findings; Q87.11 Prader-Willi syndrome; K21.9 Gastro-esophageal reflux disease without esophagitis; G47.33 Obstructive sleep apnea (adult) (pediatric); F84.0 Autistic disorder; Z23 Encounter for immunization | CPT/HCPCS: 90471; 90656; 99395 ==

== ENCOUNTER 2025-02-26 09:58 | Outpatient (AMB) | payer MEDICARE, MEDICAID, SELFPAY ==
--- NOTE | 2025-02-26 09:58 | MHC.OFFVIS ---
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 annual exam Therapeutic Recreation Leader: Therapeutic Recreation Leader Present (Melissa French MA) Accompanied by: Other Relationship Allergies silver (From TEGADERM AG MESH) Allergy (Unknown, Verified 02/26/25 10:11) RASH transparent dressing Allergy (Unknown, Verified 02/26/25 10:11) skin irritation sensitivity haloperidol (From HALDOL) Adverse Reaction (Intermediate, Verified 02/26/25 10:11) UNKNOWN Tegaderm CHG dressing: Allergy (Unknown, Uncoded 12/22/24 10:19) skin irritation Medication List - Last Reconciled 02/26/25 by Bianca Milligan CNM acetaminophen 325 mg PO BID PRN 30 days calcium citrate-vitamin D3 315 mg-5 mcg (200 unit) (Calcium Citrate + D) 1 tab PO QAM 90 days cetirizine (Zyrtec) 10 mg PO .q 8 am 90 days cholecalciferol (vitamin D3) (Vitamin D3) 50 mcg PO .q 8 am 90 days famotidine 40 mg PO BEDTIME fluoxetine 20 mg PO DAILY fluticasone propionate 50 mcg/actuation 1 spray intranasal BEDTIME 30 days folic acid 1 mg PO QAM 90 days losartan 25 mg PO .q 8 am naltrexone 50 mg PO DAILY olanzapine (Zyprexa) 5 mg PO BEDTIME omega 0-jjj-vlx-fish oil 300-1,000 mg 1 cap orally in am, noon and pm; 90 days polyethylene glycol 3350 17 grams PO DAILY rosuvastatin 5 mg PO .qhs trazodone 100 mg PO BEDTIME ustekinumab (Stelara) 90 mg subcut Q8W Is last menstrual period known: No Post menopausal: No Patient : No HPI Comments Details: Pt presents today for ANNUAL exam . she is here with 2 case workers Alma and Ricarda She has the following concerns: vaginal itching off and on for a few months She admits she has had a boyfriend in the past at her previous residential home. she is currently not sexually active. Exercise: daily walks and activities at [facility] 1-2 times weekly Nutrition/calcium: appropriate intake Contraception: abstinence Last Pap: none Last mammo: n/a, When asked about menstrual cycle- pt reports several months w/o menses and this is confirmed with binder caser who has worked with pt for approx 2 yrs [facility] Medical History (Updated 02/26/25 @ 10:30 by Bianca Milligan CNM) Amenorrhea Inflammatory bowel disease Transaminitis KARLA (obstructive sleep apnea) Somnolence, daytime Morbid obesity Pain of left lower extremity Swelling of left lower extremity Hypertension, essential Mood disorder Developmental delay, mild Vitamin D deficiency Anemia Iron deficiency PTSD (post-traumatic stress disorder) Anxiety Autistic disorder Chronic constipation Acute constipation Colitis Crohn's disease Prader-Willi syndrome Pica in adults Surgical History History of abdominal surgery History of throat surgery Family History Father No problems noted. Mother No problems noted. Social History Household Members: Other Housing: Other Do you presently have visiting nurse or other home services: Yes Alcohol intake: never Comment: No complaints of headache Patient Tobacco Use Status: Never used Tobacco e-Cigarette/Vaping Use: Never Used Second Hand Smoke Exposure: No service: No Current occupational status: disabled Cognitive needs: No Hearing needs: No Vision needs: Yes Female Reproductive History Menstrual Age of Menarche: 11 control method: none Total pregnancies: 0 History of abnormal pap smear: No Review of Systems Const Reports no additional complaints Eyes Reports no additional complaints ENT Reports no additional complaints Card Reports no additional complaints Resp Reports no additional complaints GI Reports no additional complaints Reports as per [facility] Skin/Breast Reports system reviewed and no additional complaints, except as documented Physical Exam Vital Signs: Last Vital Signs BP 120/74 02/26/25 10:11 BMI result Body Mass Index 28.0 Const General: cooperative and no acute distress Orientation/consciousness: patient oriented x3 HEENT Head: Yes atraumatic General nose exam: Normal external nose present Neck Neck: Yes normal visual inspection Chest Breast/axilla inspection: normal inspection of the breasts, normal inspection of the axillae and Other (No skin changes, peau d orange, or nipple discharge noted) Breast/axilla palpation: normal palpation of the breasts (bilateral fibrocystic changes), normal palpation of the axillae and no axillary lymphadenopathy Resp Effort & Inspection: normal respiratory effort and able to speak in complete sentences GI Inspection: No distended Palpation (GI): Soft to palpation, nontender and no masses Percussion: Yes normal to percussion Rectal Exam - Female: External hemorrhoid(s) present ([present/absent]) External Female Exam: normal appearance of the urethra and erythema Speculum Exam - Vagina: normal appearance of the vagina and normal vaginal discharge Speculum Exam - Cervix: normal appearance of the cervix, normal palpation (neg CMT) and Cervical os closed (scant spotting with cytobrush) Bimanual exam- vagina & uterus: normal bimanual exam, normal palpation (neg CMT), uterine mobility normal and non-tender Bimanual Exam- Adnexa, other: no masses and No adnexal tenderness Skin General skin exam: no rashes or lesions noted Neuro General: patient oriented x3 and moves all extremities Extrem General: Yes full ROM Psych Speech and movement: Normal speech and movement present Affect: normal affect Attitude: cooperative Thought process: Normal thought process present Assessment & Plan Assessment & Plan (1) Amenorrhea: Code(s): N91.2 - Amenorrhea, unspecified Category: Medical Plan: work up to include serum testing and pelvic sono as noted below (2) Well woman exam with routine gynecological exam: Code(s): Z01.419 - Encounter for gynecological examination (general) (routine) without abnormal findings (3) Vaginitis: Code(s): N76.0 - Acute vaginitis Qualifiers: Chronicity: acute Qualified Code(s): N76.0 - Acute vaginitis (4) Encounter for screening examination for sexually transmitted disease: Code(s): Z11.3 - Encounter for screening for infections with a predominantly sexual mode of transmission (5) Screening breast examination: Code(s): Z12.39 - Encounter for other screening for malignant neoplasm of breast (6) Screening for malignant neoplasm of cervix: Code(s): Z12.4 - Encounter for screening for malignant neoplasm of cervix Plan During the visit, the following areas of concern were addressed: Monitoring of the menstrual cycle Contraception, including options and instructions, risks and benefits Regular exercise Healthy lifestyle STD strategies to avoid exposure Health Maintenance and Screening -Reviewed ASCCP guidelines for Paps and yearly (bi-yearly ) pelvic exam. -Reviewed and encouraged diet and exercise for cardiovascular and bone health -Reviewed breast self-awareness. Importance of yearly mammogram after age 40 (earlier if first-degree relative with breast cancer at a younger age ) Discuss use of 3 times per week weight-bearing exercise, vitamin D3 and servings of dietary calcium daily for bone health. -continue to follow with PCP for general medical care, immunizations. Family and personal history of cancer reviewed. Limited info The patient has BMI: 28 The patient is overweight. Approaches towards weight loss are discussed including burning more calories than one takes in by frequent, small meals, portion control, avoiding eating before bedtime, regular exercise with an emphasis on duration rather than intensity, strength training exercise, cont financial representative recommendations. Pending results will treat/refer as needed Residential forms completed Discussed vulvo-vaginal hygiene and enc to try skin barrier , to help with vulvar irritation Pending results will treat as needed RTO one year or sooner jose r Milligan CNM Note about provider documentation : If you or the patient named in this chart and are reviewing your medical notes, please note that medical documentation is often written with abbreviations and medical terminology, and directed for other providers who may be involved in your care as well. Documentation is critical to record what has happened, what tests were ordered, and so they are interpreted with the resulting diagnoses. These nodes have been made available for patient review but not specifically written for the patient. Important health information is always given to my patients in clinical instructions. Please review your after visit summary and our contact our clinical staff if you have any questions. Orders: Orders Follicle Stimulating Hormone Today N91.2 - Amenorrhea, unspecified US pelvic and transvaginal 2 Weeks N91.2 - Amenorrhea, unspecified CT NG by PCR Vag/Cerv Today Z01.419 - Encounter for gynecological examination (general) (routine) without abnormal findings, Z11.3 - Encounter for screening for infections with a predominantly sexual mode of transmission Pap Smear Today Z01.419 - Encounter for gynecological examination (general) (routine) without abnormal findings, Z11.3 - Encounter for screening for infections with a predominantly sexual mode of transmission, Z12.4 - Encounter for screening for malignant neoplasm of cervix Bacterial Vaginosis Panel Today N76.0 - Acute vaginitis, Z01.419 - Encounter for gynecological examination (general) (routine) without abnormal findings, Z11.3 - Encounter for screening for infections with a predominantly sexual mode of transmission HCG Quantitative Today N91.2 - Amenorrhea, unspecified Coding Level of Care Code Est Pt Prev Care 18-39y(45524) Diagnoses Amenorrhea N91.2 Well woman exam with routine gynecological exam Z01.419 Acute vaginitis N76.0 Chronicity: acute Encounter for screening examination for sexually transmitted disease Z11.3 Screening breast examination Z12.39 Screening for malignant neoplasm of cervix Z12.4
[2025-02-26 10:11] VITALS: BP 120/74; BMI 28.0
== END 2025-02-26 14:42 | disposition home or self-care (01) ==
LOC: HO.HWSM 09:58
PROVIDERS: PCP Internal Medicine; Visit Provider Advanced Practice Midwife
DX: Z01.419 Encounter for gynecological examination (general) (routine) without abnormal findings (principal); N76.0 Acute vaginitis; N91.2 Amenorrhea, unspecified; Z11.3 Encounter for screening for infections with a predominantly sexual mode of transmission; Z12.39 Encounter for other screening for malignant neoplasm of breast; Z12.4 Encounter for screening for malignant neoplasm of cervix
CPT/HCPCS: 99213; G0101; Q0091

== ENCOUNTER 2025-02-26 10:38 | Outpatient (REF) | payer MEDICARE, MEDICAID, SELFPAY ==
[2025-02-27 15:03] LABS: Bacterial Vaginosis PCR POSITIVE (Negative); Candida Group PCR NOT DETECTED (Not Detect); Candida glab krusei PCR NOT DETECTED (Not Detect); Trichomonas vaginalis PCR NOT DETECTED (Not Detect)
[2025-02-27 15:36] LABS: CT PCR NOT DETECTED (Not Detect.); NG PCR NOT DETECTED (Not Detect.)
== END 2025-02-26 10:39 | disposition home or self-care (01) ==
LOC: HO.LNP 10:38
PROVIDERS: Visit Provider Advanced Practice Midwife
DX: Z01.419 Encounter for gynecological examination (general) (routine) without abnormal findings (principal); Z20.2 Contact with and (suspected) exposure to infections with a predominantly sexual mode of transmission; K50.10 Crohn's disease of large intestine without complications; E55.9 Vitamin D deficiency, unspecified; E78.9 Disorder of lipoprotein metabolism, unspecified; Q87.11 Prader-Willi syndrome; I10 Essential (primary) hypertension; N91.2 Amenorrhea, unspecified; N76.0 Acute vaginitis
CPT/HCPCS: 36415; 80053; 81515; 82607; 83001; 85025; 87491; 87591; 88175

== ENCOUNTER 2025-02-27 08:51 | Outpatient (REF) | payer MEDICARE, MEDICAID, SELFPAY ==
[2025-03-03 14:47] LABS: Vitamin D 25-OH, D2 <4 ng/mL; Vitamin D 25-OH, D3 42 ng/mL; Vitamin D 25-OH, Total 42 ng/mL (30-100)
== END 2025-02-27 08:52 | disposition home or self-care (01) ==
LOC: HO.HHCL 08:51
PROVIDERS: PCP Internal Medicine; Visit Provider Advanced Practice Midwife
DX: Z00.00 Encounter for general adult medical examination without abnormal findings (principal); I10 Essential (primary) hypertension; N91.2 Amenorrhea, unspecified; K50.10 Crohn's disease of large intestine without complications; E55.9 Vitamin D deficiency, unspecified; E78.9 Disorder of lipoprotein metabolism, unspecified; Q87.11 Prader-Willi syndrome
CPT/HCPCS: 36415; 82306; 83721; 84443; 84702

== ENCOUNTER 2025-03-20 10:43 | Outpatient (AMB) | payer MEDICARE, SELFPAY ==
--- NOTE | 2025-03-20 11:04 | AM.OFFVISNUR ---
Intake Visit Reasons: injections Gin Inspector Required: No Allergies silver (From TEGADERM AG MESH) Allergy (Unknown, Verified 03/20/25 11:07) RASH transparent dressing Allergy (Unknown, Verified 03/20/25 11:07) skin irritation sensitivity haloperidol (From HALDOL) Adverse Reaction (Intermediate, Verified 03/20/25 11:07) UNKNOWN Tegaderm CHG dressing: Allergy (Unknown, Uncoded 03/20/25 11:07) skin irritation Nursing Note Patient came into office- with 2 staff members doing well. Stelara 90mg SQ left arm tolerated well, return in 8 weeks Office Meds Stelara 90 mg/mL subcutaneous syringe Performing Provider: ROMEL Del Rio Performing Location: [facility] Administered by: Janette Johnson RN on 03/20/25 10:50 Dose Route Admin Location Dispensed Lot Number Expiration Date ND Consumer Sales Representative 90 mg subcut Left Arm 1 mL [id number] 05/28/27 03425-587-85 [employer] Total Dispensed Waste 1 mL 0 % Assessment & Plan Assessment & Plan Orders: Orders AMB Ustekinumab Injection Today K50.10 - Crohn's disease of large intestine without complications Coding Level of Care Code Established Pt Est Pt Level 1 (89015) Patient Type Established
--- OUTSIDE RECORDS SUMMARY | 2025-03-20 12:03 | XMS_ITS | Data Portability ---
Author Organization [facility], [address] Address [address] [place] [address] Care Team Providers Care Engineering Drafter Name Role Phone GALE HERRON Primary Care [...] anybody to take it out. 2022 023 [facility], [address] [place], [address], 3 11:14:58 Procedures None recorded. Surgeries None recorded. Imaging None recorded. Medication Orders None recorded. Patient TargetsNo targets recorded. Patient Instructions Encounter Date Encounter Id Patient Instructions Last Modified By Organization Details Last Modified Time 07/05/2022 [id number] How do you know when anxiety is [...] Address Organization Details Recorded Time Crohn's disease 96716107 Active 2022 [facility] 10:40:54 Hypertensive disorder 40585949 Active 2022 RASHIDA [facility] 3 10:41:11 Anxiety 64792184 Active 2022 Celina sims PA [facility] 3 10:41:27 Problem Notes None recorded. Medical Equipment None Reported. Allergies Allergen ID Allergen Name Allergen Category Reaction Reaction Severity Criticality Documentation Date Start Date Code Code System Note Provider Name and Address Organization Details Recorded Time 039979 Haldol medicatio n Not available Not available Not available 07/05/2022 77618 9 RxNorm Celina sims PA [facility] 3 10:38:19 791171 Tegaderm medicatio n Not available Not available Not available 07/05/2022 Celina sims [facility] 3 10:38:24 Medications Name Sig [...] [Score] - Reported Body temperature Oxygen saturation Heart rate Respiratory rate Systolic And Diastolic Provider Name and Address Organization Details Last Updated DateTime 3 152.4 cm 10 97.3 [degF] 97 % 62 /min 18 /min 130/70 mm[Hg] Celina FIELD [facility] 3 10:48:04 Social History Question Answer Notes LastModified by HashParade Details LastModified Time Tobacco Smoking Status Never Smoker Celina sims [facility] 07/05/2022 10:41:44 Have You Recently Traveled Abroad? No Information not available 07/05/2022 Sex: Unknown Functional Status Question Answer Note LastModified by HashParade Details LastModified Time Do you use any [...] ICD10 Code Diagnosis IMO Codes Diagnosis Note [id number] [address] [place] [address] 11/21/2018 11:59:56 11/21/2018 12:40:12 [id number] [address] [place] [address] 01/12/2019 09:59:09 01/12/2019 10:39:14 [id number] [address] [place] [address] 09/18/2021 16:11:26 09/18/2021 17:00:09 [id number] Rishi Cohen NP [address] [place] [address] 07/05/2022 09:20:30 07/05/2022 11:14:52 Acute urinary tract infection [id number] N39.0 Unable to obtain urine sample. Foreign mario dy in pharynx [id number] T17.208A Health Concerns Section Related Observation LastModified by Organization Detai ls LastModified Time None Recorded Concern Status LastModified by Organization Details LastModified Time None Recorded Advance Directives Directive None Recorded Payers Insurance Date Sequence Insurance Name Policy Number Policy Ko Covered Member ID Ko Member ID Guarantor Name 07/05/2022 1 [place]ICARE [place]: [id number] [facility] 07/05/2022 2 [place] [facility] [id number] [facility] Notes Date Note Type Note Provider [...] Cohen NP [address] [place], [address], [place] - [facility] 07/05/2022 11:21:53 OBGyn Episode No OBEpisode recorded.
== END 2025-03-20 11:30 | disposition home or self-care (01) ==
LOC: HO.HGI 10:44
PROVIDERS: PCP Internal Medicine; Visit Provider Nurse Practitioner Family
DX: K50.10 Crohn's disease of large intestine without complications (principal)

== ENCOUNTER → 2025-03-20 10:43 | Outpatient (BNVA) | payer MEDICARE, SELFPAY | PROVIDERS: PCP Internal Medicine; Visit Provider Nurse Practitioner Family | DX: K50.10 Crohn's disease of large intestine without complications (principal); Z23 Encounter for immunization | CPT/HCPCS: 96372; 99211; J3357 ==